=== PATIENT | female | born 1965 | race Two or more races ===

== ENCOUNTER 2022-11-12 21:20 | Emergency (ER) | payer OTHER, SELFPAY ==
--- NOTE | ~2022-11-12 | CT_ITS ---
EXAMINATION: CT ABDOMEN AND PELVIS WITH CONTRAST CLINICAL INFORMATION: Left lower quadrant pain COMPARISON: None available. TECHNIQUE: Multidetector volumetric images were obtained from the superior aspect of the liver through the pubic symphysis following administration 85 mL of Omnipaque 350 intravenous contrast. Sagittal and coronal reformatted images were obtained on the technologist's workstation. Oral contrast: No This CT examination was performed using dose optimization techniques as appropriate, variously including the following: *Automated exposure control *Adjustment of mA and/or kV according to patient size (this includes techniques or standardized protocols for targeted exams where dose is matched to indication/reason for exam; i.e. extremities or head) *Use of iterative reconstruction technique DLP: 948 mGy-cm FINDINGS: LUNG BASES: The visualized lung bases are unremarkable. LIVER, GALLBLADDER, AND BILIARY TREE: The liver is normal in size, shape, and attenuation. No focal hepatic lesion or biliary ductal dilatation is present. The gallbladder is unremarkable with no evidence of radiopaque gallstones, gallbladder wall thickening, or obvious pericholecystic inflammatory changes. PANCREAS: Unremarkable. SPLEEN: Unremarkable. ADRENAL GLANDS: Unremarkable. KIDNEYS AND URETERS: Bilateral nephrograms are symmetric. No hydronephrosis or obstructing calculus identified. BLADDER: Unremarkable. GASTROINTESTINAL TRACT: No evidence of bowel obstruction or wall thickening. There is moderate stool throughout the colon. No free fluid or free air is seen. ABDOMINAL WALL: No significant hernia is appreciated. LYMPH NODES: Normal. VASCULAR: Moderate atherosclerotic calcification. PELVIC VISCERA: Unremarkable. OSSEOUS STRUCTURES: Degenerative changes are noted in the spine. CT/CT abdomen pelvis w IV con IMPRESSION: No acute findings identified in the abdomen/pelvis.
[2022-11-12 21:37] VITALS: BP 136/80; PULSE 106; RESP 18; TEMP 36.9; O2SAT 95; BMI 37.3
[2022-11-12 22:13] LABS: Basophils Absolute Auto 0.1 X10*3/uL (0.0-0.2); Basophils Percent Auto 0.4 % (0-2); Eosinophils Absolute Auto 0.1 X10*3/uL (0.0-0.4); Eosinophils Percent Auto 0.6 % (0-4); Hemoglobin 15.8 g/dl (12.0-16.0); Imm Gran Abs Auto 0.12 X10*3/uL (0.00-0.03); Imm Gran Pct Auto 0.6 % (0.0-0.4); Lymphocytes Absolute Auto 3.2 X10*3/uL (1.2-4.9); Lymphocytes Percent Auto 15.6 % (20-40); MANUAL DIFF FLAG SCAN; Mean Corpuscular HGB Conc 32.9 g/dl (31.0-35.0); Mean Corpuscular Hemoglobin 29.4 pg (27.0-33.0); Mean Corpuscular Volume 89.4 fL (80.0-98.0); Mean Platelet Volume 9.2 fL (9.4-12.3); Monocytes Absolute Auto 1.6 X10*3/uL (0.1-1.2); Monocytes Percent Auto 7.8 % (2-11); Neutrophils Absolute Auto 15.3 x10*3/uL (2.0-8.3); Platelet Count 259 X10*3/uL (160-400); Red Blood Count 5.37 X10*6/uL (4.20-5.50); Red Cell Distribution Width 13.7 % (11.0-16.0); SCAN SMEAR FLAG 1; White Blood Count 20.4 X10*3/uL (4.8-10.8)
[2022-11-12 22:27] LABS: Anion Gap 15 (12-20); Blood Urea Nitrogen 29 mg/dL (9-16); Calcium 10.1 mg/dL (8.4-10.2); Carbon Dioxide 26 mmol/L (22-29); Chloride 100 mmol/L (96-108); Creatinine Clr Calc Pharmacy 59.5; Estimated Glomerular Filt Rate 43; Glucose Random 342 mg/dL (60-115); Potassium 5.3 mmol/L (3.3-5.1); Sodium 136 mmol/L (135-145)
[2022-11-12 22:30] LABS: SLIDE REVIEW VERIFIED
--- NOTE | 2022-11-12 23:12 | ED_ITS ---
HPI - General Adult General Chief complaint: Skin/Abscess/Foreign Body Stated complaint: Lower back pain/hip pain right side/abscessLftthig Time Seen by Provider: 11/12/22 23:12 Source: patient Mode of arrival: ambulatory Limitations: no limitations History of Present Illness HPI narrative: 57-year-old female presents to the emergency department for evaluation of which she thinks is an abscess located to the left posterior thigh, this has been going on for the past few days, worsening. She reports is been getting larger, more red and uncomfortable over the past few days. She states she has had abscesses there in the past. She is also complaining of chronic lower back pain worse on the right side w/ radiation to RLE above the knee, worsening over the past few days, back pain feels like her typical back pain however not improving. Scheduled to have an MRI done on the for further evaluation and treatment. Also compalinging of suprapubic/ LLQ abd pain X fewe days. Patient denies fevers, chills, chest pain, shortness of breath, numbness, tingling, saddle paresthesias, weakness, urinary/bowel incontinence/retention,nausea, vomiting Related Data Previous Rx's Medication Instructions Recorded doxycycline hyclate 100 mg capsule 100 mg PO BID 10 days #20 caps 11/12/22 lidocaine 5 % topical patch 1 patch topical DAILY PRN pain #15 11/12/22 ea morphine 15 mg immediate release 15 mg PO Q6H PRN pain 5 days #10 11/12/22 tablet tabs Allergies Allergy/AdvReac Type Severity Reaction Status Date / Time amoxicillin [AMOXICILLIN] Allergy Unknown ANAPHYLAXIS Unverified 11/12/22 21:42 duloxetine [From CYMBALTA] Allergy Unknown UNKNOWN Unverified 11/12/22 21:42 exenatide [From BYETTA] Allergy Unknown ANAPHYLAXIS Unverified 11/12/22 21:42 insulin detemir Allergy Unknown SORE THROAT Unverified 11/12/22 21:42 [From LEVEMIR U-100 INSULIN] insulin glargine Allergy Unknown YEAST Unverified 11/12/22 21:42 [From LANTUS U-100 INSULIN] INFECTION insulin glulisine Allergy Unknown UNKNOWN Unverified 11/12/22 21:42 [From APIDRA U-100 INSULIN] insulin isophane (NPH) Allergy Unknown YEAST Unverified 11/12/22 21:42 [From HUMULIN N NPH U-100 INFECTION INSULIN] insulin lispro Allergy Unknown HIVES Unverified 11/12/22 21:42 [From HUMALOG U-100 INSULIN] insulin regular Allergy Unknown MUSCLE PAIN Unverified 11/12/22 21:42 [From NOVOLIN R REGULAR U-100 INSULN] penicillin V Allergy Unknown Rash Verified 11/12/22 21:42 pioglitazone [From ACTOS] Allergy Unknown HIVES Unverified 11/12/22 21:42 Review of Systems Review of Systems: Constitutional : No Weight loss, No Fever, No Chills, ENT/Mouth : No Hearing loss, No Ear Pain, No Nasal Congestion, No Sinus Pain, No Hoarseness, No sore throat, No Rhinorrhea, No Swallowing Difficulty Cardiovascular : No Chest Pain, No SOB Respiratory : No Cough, No Dyspnea Gastrointestinal : No Nausea, No Vomiting, No Diarrhea, + abdominal Pain, No Hematochezia, No Melena Genitourinary : No Dysuria, No Urinary Frequency, No Hematuria, No Urinary Incontinence, Musculoskeletal : positive back pain Skin : No Skin Lesions, No rash, + abscess Neuro : No Weakness, No Numbness, No Paresthesias, no loss of bowel or bladder incontinence, no saddle anesthesia Yes all other systems are reviewed and are negative [facility] Past Medical History Attestation statement: The following information was validated with the patient. Source: old records reviewed and nursing notes reviewed Social History Social History Advance Directives: No Advance Directives Information Provided: Yes Physical Exam ED Vital Signs: Vital Signs - 24 hr 11/12/22 21:37 11/13/22 00:20 Temperature 98.4 F 98.8 F Pulse Rate 106 H 99 Respiratory Rate 18 18 Blood Pressure 136/80 106/68 Pulse Oximetry 95 95 Oxygen Delivery Method Room Air Room Air BMI result Body Mass Index 37.3 vss Appearance: Alert.? Oriented X3.? No acute distress.? Head: Normocephalic, atraumatic, no step-offs or deformities Eyes: Pupils equal, round and reactive to light.? CVS: Normal heart rate and rhythm.? Pulses normal.? Respiratory: No respiratory distress.? Breath sounds normal.? Abdomen: Soft and + suprapubic pain and LLQ pain .? Skin: Skin warm and dry.? Normal skin color.? Normal skin turgor.?+ indurated 2 cm X 2 cm area on left medial aspect of buttocks w/ overlying errythem and warmth. No fluctuance Extremities: No lower extremity edema.? No calf ttp. 5/5 strength to bilateral upper and lower extremities Back: No midline tenderness, no C-spine tenderness, full range of motion, no CVA tenderness bilaterally Neuro: Oriented X 3.? No motor deficit.? No sensory deficit. CN 2-12 intact . Ambulating with steady gait normal coordination. No saddle paresthesias. Course Reevaluation(s) Reevaluation #1: CBC with leukocytosis 20.4, no left shift. Chemistry with elevated potassium, 10 of Lokelma ordered. BUN 29 likely secondary to dehydration. Fluids ordered. Blood cultures lactic acid also ordered. CT scan abdomen pelvis pending. Time: 23:27 Reevaluation #2: Pending CT abd and pelvisw, UA, and reeval sign out to Dr. Jimenes. Time: 01:39 Medications Administered Discontinued Medications Generic Name Dose Route Start Last Admin Trade Name Freq PRN Reason Stop Dose Admin Sodium Chloride 1,000 mls @ 999 mls/hr 11/12/22 23:30 11/13/22 00:57 Ns IV 11/13/22 00:30 999 mls/hr .Q1H1M CAROLYN Administration Lidocaine 1 patch 11/12/22 23:28 11/13/22 00:55 Lidocaine 4 % Patch Adh..Patch TRANSDERMA 11/12/22 23:29 1 patch ONCE ONE Administration Protocol Morphine Sulfate 15 mg 11/12/22 23:28 11/13/22 00:53 Morphine Sulfate Immed Release 15 Mg Tablet PO 11/12/22 23:29 15 mg ONCE ONE Administration Sodium Zirconium Cyclosilicate 10 gm 11/12/22 23:12 11/13/22 00:55 Sodium Zirconium Cyclosilicate 10 Gm Powd.Pack PO 11/12/22 23:13 10 gm ONCE ONE Administration Medical Decision Making Medical Decision Making [facility] Narrative: [id number] 57-year-old female presents with concerns of abscess to left posterior thigh, and chronic back pain. Physical exam with indurated 2 cm X 2 cm area on left medial aspect of buttocks w/ overlying errythem and warmth. No fluctuance. There is tenderness to palpation to the suprapubic and left lower abdomen. Normoactive bowel sounds. Regular rate and rhythm. Lungs clear. No saddle paresthesias. Patient ambulatory with steady gait uses a walker for ambulation. Neuro nonfocal. This is likely developing abscess with some overlying cellulitis. I do not suspect epidural abscess, cauda equina, cord compression. Likely chronic back pain, versus lumbar radiculopathy scheduled to have an MRI the of this month. No red flag symptoms. Will rule out pyelonephritis, UTI, cystitis and diverticulitis. No signs of acute abdomen, appendicitis, cholecystitis. Plan at this time labs, imaging, urine Differential Diagnosis Differential Diagnoses: The differential diagnosis associated with the presentation includes This is likely developing abscess with some overlying cellulitis. I do not suspect epidural abscess, cauda equina, cord compression. Likely chronic back pain, versus lumbar radiculopathy . Will rule out pyelonephritis, UTI, cystitis and diverticulitis. No signs of acute abdomen, appendicitis, cholecystitis. Admission/Observation Consideration of admission/observation: Escalation of care including admission/observation considered Not indicated Lab Data MDM Lab Attestation statement: I reviewed the patient's lab results. 11/12/22 22:03 11/12/22 22:03 Labs: Lab Results 11/12/22 11/12/22 11/13/22 Range/Units 22:03 22:03 00:10 WBC 20.4 H (4.8-10.8) X10*3/uL RBC 5.37 (4.20-5.50) X10*6/uL Hgb 15.8 (12.0-16.0) g/dl Hct 48.0 H (37.0-47.0) % MCV 89.4 (80.0-98.0) fL MCH 29.4 (27.0-33.0) pg MCHC 32.9 (31.0-35.0) g/dl RDW 13.7 (11.0-16.0) % Plt Count 259 (160-400) X10*3/uL MPV 9.2 L (9.4-12.3) fL Immature Gran % (Auto) 0.6 H (0.0-0.4) % Neut % (Auto) 75.0 H (45-73) % Lymph % (Auto) 15.6 L (20-40) % Woods % (Auto) 7.8 (2-11) % Eos % (Auto) 0.6 (0-4) % Baso % (Auto) 0.4 (0-2) % Lymph # (Auto) 3.2 (1.2-4.9) X10*3/uL Woods # (Auto) 1.6 H (0.1-1.2) X10*3/uL Eos # (Auto) 0.1 (0.0-0.4) X10*3/uL Baso # (Auto) 0.1 (0.0-0.2) X10*3/uL Abs Immat Gran (auto) 0.12 H (0.00-0.03) X10*3/uL Absolute Neuts (auto) 15.3 H (2.0-8.3) x10*3/uL Absolute Nucleated RBC 0.000 (0.0-0.012) X10*3/uL Nucleated RBC % (auto) 0.0 (0.0-0.2) /100WBC Smear Tech's Comments VERIFIED Sodium 136 (135-145) mmol/L Potassium 5.3 H (3.3-5.1) mmol/L Chloride 100 (96-108) mmol/L Carbon Dioxide 26 (22-29) mmol/L Anion Gap 15 (12-20) BUN 29 H (9-16) mg/dL Creatinine 1.29 (0.5-1.4) mg/dL Estim Creat Clear Calc 59.5 Estimated GFR 43 Random Glucose 342 H (60-115) mg/dL Lactic Acid 1.5 (0.5-2.0) mmol/L Calcium 10.1 (8.4-10.2) mg/dL 11/13/22 Range/Units 01:11 WBC (4.8-10.8) X10*3/uL RBC (4.20-5.50) X10*6/uL Hgb (12.0-16.0) g/dl Hct (37.0-47.0) % MCV (80.0-98.0) fL MCH (27.0-33.0) pg MCHC (31.0-35.0) g/dl RDW (11.0-16.0) % Plt Count (160-400) X10*3/uL MPV (9.4-12.3) fL Immature Gran % (Auto) (0.0-0.4) % Neut % (Auto) (45-73) % Lymph % (Auto) (20-40) % Woods % (Auto) (2-11) % Eos % (Auto) (0-4) % Baso % (Auto) (0-2) % Lymph # (Auto) (1.2-4.9) X10*3/uL Woods # (Auto) (0.1-1.2) X10*3/uL Eos # (Auto) (0.0-0.4) X10*3/uL Baso # (Auto) (0.0-0.2) X10*3/uL Abs Immat Gran (auto) (0.00-0.03) X10*3/uL Absolute Neuts (auto) (2.0-8.3) x10*3/uL Absolute Nucleated RBC (0.0-0.012) X10*3/uL Nucleated RBC % (auto) (0.0-0.2) /100WBC Smear Tech's Comments Sodium (135-145) mmol/L Potassium 4.4 (3.3-5.1) mmol/L Chloride (96-108) mmol/L Carbon Dioxide (22-29) mmol/L Anion Gap (12-20) BUN (9-16) mg/dL Creatinine (0.5-1.4) mg/dL Estim Creat Clear Calc Estimated GFR Random Glucose (60-115) mg/dL Lactic Acid (0.5-2.0) mmol/L Calcium (8.4-10.2) mg/dL Independent Interpretation I performed an independent interpretation of an: CT Scan Radiology Impression Discussion of test interpretation with radiology: I have reviewed the radiologist's reading. Tests considered The following testing was considered but not selected: Red flag symptoms of back pain no indication for imaging at this time, atraumatic in nature. No need for x-ray, CT or MRI. Prescription Management I considered prescription management with: Pain Medication Chronic Conditions Patient?s care impacted by: Diabetes Core Measures AMI core measures followed: Yes Measure exclusions: not indicated Critical Care Time Critical Care Time Critical Care Time: No Discharge Plan Discharge Clinical Impression: Cellulitis, Abscess of skin or subcutaneous tissue, Lower back pain, Abdominal pain, Acute hyperkalemia Patient Disposition: Home, Self-Care Instructions: Cellulitis (ED), Abscess (ED), Abdominal Pain (ED), Back Pain (ED), Abscess Follow-up (ED), Warm Compress or Soak (ED) Additional Instructions: Take your medications as prescribed. If you were prescribed antibiotics today, it is important that you take your medication to their entirety, do not skip any doses, do not finish them early. Follow-up with your primary care provider this week. Return to the emergency department with new or worsening symptoms. Such as fevers, chills, chest pain, shortness of breath, nausea, vomiting, dizziness, headache, vision changes, lethargy In case of emergency call 911 Apply warm compresses to the affected area. Take your antibiotics as prescribed. A narcotic has been sent to your pharmacy please take this as prescribed. Do not take more than the prescribed dose. Narcotic medications can cause addiction. Please do not mix them with alcohol. Do not take them while driving or operating machinery. Do not take them with any other narcotics. Do not share them with friends or family. They can cause constipation. Take them only for severe pain. Prescriptions: New doxycycline hyclate 100 mg capsule 100 mg PO BID 10 Days Qty: 20 0RF lidocaine 5 % adhesive patch,medicated 1 patch topical DAILY PRN (Reason: pain) Qty: 15 0RF Rx Instructions: leave on most painful area for up to 12 hrs morphine 15 mg tablet 15 mg PO Q6H PRN (Reason: pain) 5 Days Qty: 10 0RF Rx Instructions: Partial Fill upon patient request. Referrals: Zoraida Li MD [Primary Care Provider] - 2 days Stand Alone Forms: Work/School Release
[2022-11-13 00:20] VITALS: BP 106/68; PULSE 99; RESP 18; TEMP 37.1; O2SAT 95
[2022-11-13 00:45] LABS: Lactic Acid 1.5 mmol/L (0.5-2.0)
[2022-11-13] MEDS: Morphine Sulfate Immed Release 15 MG TABLET PO (00:53)
[2022-11-13] MEDS: Sodium Zirconium Cyclosilicate 10 GM POWD.PACK PO (00:55)
[2022-11-13] MEDS: Lidocaine 4 % Patch ADH..PATCH 1 PATCH TRANSDERMA (00:55)
[2022-11-13] MEDS: 0.9 % Sodium Chloride 1,000 ML 999 ML IV (00:57)
[2022-11-13 01:22] LABS: Potassium 4.4 mmol/L (3.3-5.1)
[2022-11-13 02:09] LABS: Anion Gap 16 (12-20)
[2022-11-13 02:20] LABS: Blood Urea Nitrogen 26 mg/dL (9-16); Calcium 9.4 mg/dL (8.4-10.2); Carbon Dioxide 19 mmol/L (22-29); Chloride 103 mmol/L (96-108); Creatinine Clr Calc Pharmacy 80.8; Estimated Glomerular Filt Rate > 60; Glucose Random 286 mg/dL (60-115); Sodium 134 mmol/L (135-145)
[2022-11-13 03:03] VITALS: BP 111/60; PULSE 96; RESP 16; TEMP 37.1; O2SAT 92
[2022-11-13] MEDS: iohexoL 350 MG/ML 100 ML INFUS..BTL 85 ML IV (03:14)
[2022-11-13] MEDS: levoFLOXacin/D5W 500 MG/100 ML PIGGYBACK 100 MG IV (03:16)
[2022-11-13 04:12] LABS: Appearance Urine Cloudy; Color Urine Yellow; Glucose Urine UA >=1000 mg/dL (Negative); Leukocyte Esterase Urine Moderate (2+) (Negative); Nitrite Urine Negative (Negative); Specific Gravity - Urine >= 1.030 (1.005-1.025); UMIC TRIGGER UACC YES; Urine Blood Negative (Negative); Urine Ketones Negative (Negative); Urine Protein 30 (1+) mg/dL (Neg-Trace)
[2022-11-13 04:24] LABS: Bacteria Urine 4+ (None Seen); Hyaline Casts Urine 0-2 /LPF (0-2); UACC Culture Trigger YES; WBC Urine >50 /HPF (0-5)
== END 2022-11-13 04:59 | disposition home or self-care (01) ==
PROVIDERS: Physician Assistant; Emergency Provider Emergency Medicine Emergency Medical Services; PCP Family Medicine
DX: L03.116 Cellulitis of left lower limb (principal); L02.416 Cutaneous abscess of left lower limb; R10.32 Left lower quadrant pain; M54.50 Low back pain, unspecified; E87.5 Hyperkalemia; E11.9 Type 2 diabetes mellitus without complications
CPT/HCPCS: 36415; 74177; 80048; 81001; 83605; 84132; 85025; 87040; 87086; 87147; 96361; 96374; 99284; J1956; Q9967

== ENCOUNTER 2023-01-26 13:49 | Outpatient (AMB) | payer OTHER, SELFPAY ==
--- NOTE | 2023-01-26 13:50 | A.OFFVIS_ITS ---
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 Required: No Accompanied by: Self / Same As Patient Allergies amoxicillin [AMOXICILLIN] Allergy (Unknown, Verified 01/26/23 14:30) ANAPHYLAXIS duloxetine [From CYMBALTA] Allergy (Unknown, Verified 01/26/23 14:30) UNKNOWN exenatide [From BYETTA] Allergy (Unknown, Verified 01/26/23 14:30) ANAPHYLAXIS insulin detemir [From LEVEMIR U-100 INSULIN] Allergy (Unknown, Verified 01/26/23 14:30) SORE THROAT insulin glargine [From LANTUS U-100 INSULIN] Allergy (Unknown, Verified 01/26/23 14:30) YEAST INFECTION insulin glulisine [From APIDRA U-100 INSULIN] Allergy (Unknown, Verified 01/26/23 14:30) UNKNOWN insulin isophane (NPH) [From HUMULIN N NPH U-100 INSULIN] Allergy (Unknown, Verified 01/26/23 14:30) YEAST INFECTION insulin lispro [From HUMALOG U-100 INSULIN] Allergy (Unknown, Verified 01/26/23 14:30) HIVES insulin regular [From NOVOLIN R REGULAR U-100 INSULN] Allergy (Unknown, Verified 01/26/23 14:30) MUSCLE PAIN lisinopril Allergy (Unknown, Verified 01/26/23 14:30) Cough penicillin V Allergy (Unknown, Verified 01/26/23 14:30) Rash pioglitazone [From ACTOS] Allergy (Unknown, Verified 01/26/23 14:30) HIVES HPI 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 Patient was followed in the past by [facility] for low back pain and received multiple back injections with good results. She attributes her most recent radicular symptoms due to a mechanical fall in October. She accidentally hit a chair with her walker and fell onto her right side. Reports pain in her lower back pain with radiation into her right buttock, lateral hip and down to the lower leg posteriorly and laterally with cramping in her right calf, numbness and burning pain in both feet. Denies any bladder or bowel dysfunction or saddle anesthesia. Patient reports bilateral lower extremity weakness, uses cane with ambulation. Recent lumbar spine MRI is noted below. Patient is not candidate for therapeutic spine injections due to elevated A1C, nor does she want to be evaluated by Neurosurgery as she is not interested in back surgery. Reports history of overdose on oxycodone-acetaminophen due to forgetfulness and taking double dose, which required hospitalization per patient in 2016. She sees mental therapist for anxiety and depression. Reports she quit smoking on 01/14/23 and takes Nicotine lozenges for craving. Reports increased snacking and eating since quitting. 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 Receives daily [employer] services. Current blood sugar per Dexicomp reads 184. Patient reports most recent A1C was over 10. She follows Dr. Medina Muse at [facility]. Reports right great toenail removed in 2019. Patient requests referral to Podiatry provider as she has not seen one in several years. Location Back pain radiates down right leg posteriorly Duration Chronic pain for many years, progressively worsening Characteristics of symptom or complaint Aching, burning, shooting, stabbing, numbness Aggravating or associated factors Walking, sitting, climbing and descending stairs, movements, weather change Relieving factors Tylenol, Percocet, morphine, gabapentin Treatment PT- increased pain, injections- [facility]-good relief PFSH Medical History (Updated 01/26/23 @ 22:13 by GABRIELA Goel) Tennis elbow AMRIAM (obstructive sleep apnea) Vitamin D deficiency Familial hirsutism Hyperlipidemia Microalbuminuria Hypertension Depression Anxiety Hypercholesterolemia Type 2 diabetes mellitus with peripheral neuropathy Lumbar radiculopathy Right leg pain Surgical History (Updated 01/26/23 @ 14:24 by Leighann Pierre) Hx of tubal ligation Social History (Updated 01/26/23 @ 14:08 by Leighann Pierre) Alcohol intake: never Patient Tobacco Use Status: Current everyday Tobacco user Tobacco use type: Cigarette Review of Systems Const All systems reviewed & are unremarkable except as noted in HPI and below Physical Exam Vital Signs: Last Vital Signs Pulse 91 01/26/23 14:01 BP 157/73 H 01/26/23 14:01 Pulse Ox 95 01/26/23 14:01 Oxygen Delivery Method Room Air 01/26/23 14:01 BMI result Body Mass Index 37.7 General: Appears afebrile. Alert and oriented. Mood and affect appropriate. Follows and participates in conversation appropriately. Respiratory effort is unlabored. No cough. Able to transition from sit to stand unassisted. Uses cane with ambulation. Ambulates with bilaterally normal heel strike and toe off. Back/Spine/Pelvis Other: Limited back exam due to significant exacerbation of back symptoms with movements. Lumbar extension and flexion reproduces pain. Demonstrates 5/5 left and 4/5 right strength of quadriceps bilaterally as well as 4/5 flexion/dorsiflexion of bilateral feet against resistance. 2+ pedal pulses bilaterally. Seated straight leg rise with dorsiflexion positive on the right. Diminished patellar and achilles reflexes bilaterally. Facet loading test positive bilaterally. Stinchfield and limited Stanley's test reproduces low back pain and lateral right hip pain. No groin pain with I/E hip rotations. Valsalva maneuver negative. Cervical Spine: loss of normal cervical lordosis, cervical muscular tenderness and No Cervical spine tenderness Thoracic/Lumbar Spine: thoracic and lumbar spine normal to inspection, No Thoracic/lumbar spine scar(s), Lasegue's sign positive on the right and localized, pain with thoraco-lumbar ROM, paraspinal muscle tenderness, thoraco- lumbar ROM limited, No thoracic spinal tenderness and lumbar spinal tenderness at L4 and at L5 Pelvis: buttock tenderness on the right and sciatic notch tenderness on the right Sacroiliac joints: bilaterally tender to palpation Extrem Other: There is decreased sensation over the soles of the feet and the toes. No breaks in the skin. No soft tissue swelling, no redness or warmth. Poor foot care. Right great toenail removed in 2019. +2 pedal pulses bilaterally. Reports numbness, tingling and burning in both feet. General: Yes capillary refill normal, Yes no clubbing, cyanosis or edema and Yes no calf tenderness Psych Appearance: grossly normal Mental Status: mental status grossly normal Speech and movement: Clear speech present and Slowed movement present (Neuro) Affect: normal affect and Sad affect present Attitude: cooperative Thought process: Circumstantial thought process present Thought content: Normal thought content present, suicidality (none), no hallucinations and Depressive thoughts present Insight: Good insight present (Psych) Judgement: Good judgement present (Psych) Results Reviewed Results Reviewed: Assessment & Plan Assessment & Plan (1) Chronic painful diabetic neuropathy: Code(s): E11.40 - Type 2 diabetes mellitus with diabetic neuropathy, unspecified (2) Lumbar degenerative disc disease: Code(s): M51.36 - Other intervertebral disc degeneration, lumbar region (3) Lumbar radiculopathy: Code(s): M54.16 - Radiculopathy, lumbar region (4) Lumbar spondylosis: Code(s): M47.816 - Spondylosis without myelopathy or radiculopathy, lumbar region Plan 1. Medical release requests for most recent A1C sent to Endocrinology. Discuss risks and benefits of different treatment options including epidural steroid injections, topical 8% capsaicin application and PNS vs SCS trials. Patient reports A1C has been elevated, due to increased snacking after recent quitting smoking. Unfortunately she is not candidate for MEMO injections or neuromodulation treatments due to poorly controlled DM. Patient declined Neurosurgery evaluation as she is not interested in back surgery option. 2. Will try to arrange topical 8% capsaicin application for bilateral foot pain as the next step once we have confirmed availability. 3. Podiatry Referral sent today per patient's request. All questions and concerns have been answered and the patient agreed with the plan. Follow up as needed. Orders: Referrals 2 Podiatry Referral E11.40 - Type 2 diabetes mellitus with diabetic neuropathy, unspecified Coding Level of Care Code New Pt Level 4 (98443) Diagnoses Chronic painful diabetic neuropathy E11.40 Lumbar degenerative disc disease M51.36 Lumbar radiculopathy M54.16 Lumbar spondylosis M47.816
[2023-01-26 14:01] VITALS: BP 157/73; PULSE 91; O2SAT 95; BMI 37.7
== END 2023-01-26 14:37 | disposition home or self-care (01) ==
PROVIDERS: PCP Family Medicine; Visit Provider Nurse Practitioner Family
DX: E11.40 Type 2 diabetes mellitus with diabetic neuropathy, unspecified (principal); M51.36 Other intervertebral disc degeneration, lumbar region; M54.16 Radiculopathy, lumbar region; M47.816 Spondylosis without myelopathy or radiculopathy, lumbar region
CPT/HCPCS: 99204

== ENCOUNTER → 2023-01-26 13:49 | Outpatient (BNVA) | payer OTHER, SELFPAY | PROVIDERS: PCP Family Medicine; Visit Provider Nurse Practitioner Family ==

== ENCOUNTER 2023-01-31 10:45 | Outpatient (REF) | payer OTHER, SELFPAY ==
--- NOTE | ~2023-01-31 | MM_ITS ---
EXAMINATION: MM SCREENING DIGITAL BREAST TOMOSYNTHESIS, BILATERAL CLINICAL INFORMATION: Screening. Asymptomatic. COMPARISON: Mammography: This study is compared with prior exams dating back to 2018. There are no interval examinations between 2019 and the present. TECHNIQUE: Digital breast tomosynthesis is performed in both the craniocaudal and mediolateral oblique views along with computer-aided detection (CAD). Synthesized 2D images are generated from the tomosynthesis. FINDINGS: There are scattered areas of fibroglandular density (ACR BI-RADS breast composition Category b). There are no significant masses, abnormal calcifications, or other abnormalities. There is a benign, peripherally calcified oil cyst in the posterior nipple line in the deep third of the right breast. MM/MM tomosynthesis screening BI IMPRESSION: No mammographic evidence of malignancy. ASSESSMENT: BI-RADS BI-RADS 2 - Benign Findings RECOMMENDATION: Routine annual mammography screening. 1 year F/U This examination should not preclude the clinical evaluation of a suspicious palpable abnormality. This patient's information was entered into a reminder system with a target due date for their next mammogram.
== END 2023-01-31 10:46 | disposition home or self-care (01) ==
LOC: HO.MAMMO 10:45
PROVIDERS: PCP Family Medicine; Visit Provider Family Medicine
DX: Z12.31 Encounter for screening mammogram for malignant neoplasm of breast (principal)
CPT/HCPCS: 77063; 77067

== ENCOUNTER → 2023-01-31 10:45 | Outpatient (BNV) | payer OTHER, SELFPAY | PROVIDERS: PCP Family Medicine; Visit Provider Radiology Diagnostic Radiology | DX: Z12.31 Encounter for screening mammogram for malignant neoplasm of breast (principal) | CPT/HCPCS: 77063; 77067 ==

== ENCOUNTER 2023-02-12 14:10 | Outpatient (AMB) | payer OTHER, SELFPAY ==
--- NOTE | 2023-02-12 14:12 | A.OFFVIS_ITS ---
Intake Vital Signs 02/12/23 14:13 02/12/23 14:52 02/12/23 15:14 Height 5 ft 6 in Weight 233 lb 8 oz BMI 37.7 BP 142/74 H 140/70 H 148/71 H Blood Pressure Location Lt brachial Lt brachial Lt brachial Position Sitting Sitting Sitting Pulse 108 H 101 H 99 Pulse Source Pulse Oximeter Pulse Oximeter Pulse Oximeter Pulse Oximetry (%) 96 96 96 Oxygen Delivery Method Room Air Room Air Room Air Comment 15 mins after qutenza application 30 mins after qutenza application Intake Visit Reasons: Qutenza - DN Intake Note: Mabeline comes in today for Qutenza application to bilateral feet, Pain today 09/10. Lot #[id number] Exp: [id number] Beer Cooler Required: No Accompanied by: Self / Same As Patient Allergies amoxicillin [AMOXICILLIN] Allergy (Unknown, Verified 02/12/23 14:15) ANAPHYLAXIS duloxetine [From CYMBALTA] Allergy (Unknown, Verified 02/12/23 14:15) UNKNOWN exenatide [From BYETTA] Allergy (Unknown, Verified 02/12/23 14:15) ANAPHYLAXIS insulin detemir [From LEVEMIR U-100 INSULIN] Allergy (Unknown, Verified 02/12/23 14:15) SORE THROAT insulin glargine [From LANTUS U-100 INSULIN] Allergy (Unknown, Verified 02/12/23 14:15) YEAST INFECTION insulin glulisine [From APIDRA U-100 INSULIN] Allergy (Unknown, Verified 02/12/23 14:15) UNKNOWN insulin isophane (NPH) [From HUMULIN N NPH U-100 INSULIN] Allergy (Unknown, Verified 02/12/23 14:15) YEAST INFECTION insulin lispro [From HUMALOG U-100 INSULIN] Allergy (Unknown, Verified 02/12/23 14:15) HIVES insulin regular [From NOVOLIN R REGULAR U-100 INSULN] Allergy (Unknown, Verified 02/12/23 14:15) MUSCLE PAIN lisinopril Allergy (Unknown, Verified 02/12/23 14:15) Cough penicillin V Allergy (Unknown, Verified 02/12/23 14:15) Rash pioglitazone [From ACTOS] Allergy (Unknown, Verified 02/12/23 14:15) HIVES HPI HPI Comments History of Present Illness Details Patient presents for application of capsaicin 8% topical patch for diabetic neuropathy in bilateral feet. Denies any recent cough, cold, infection, fever or other significant changes in medical history since last office visit. PRIOR: Patient is a 57 year old female with prior history of chronic low back pain, pinched nerve L5, lumbar DDD, MARIAM, uncontrolled DM, PAD, peripheral neuropathy, anxiety, depression and former smoker, presents today for evaluation of low back pain with right sided radiculopathy. Patient was followed in the past by [facility] for low back pain and received multiple back injections with good results. She attributes her most recent radicular symptoms due to a mechanical fall in October. She accidentally hit a chair with her walker and fell onto her right side. Reports pain in her lower back pain with radiation into her right buttock, lateral hip and down to the lower leg posteriorly and laterally with cramping in her right calf, numbness and burning pain in both feet. Denies any bladder or bowel dysfunction or saddle anesthesia. Patient reports bilateral lower extremity weakness, uses cane with ambulation. Recent lumbar spine MRI is noted below. Patient is not candidate for therapeutic spine injections due to elevated A1C, nor does she want to be evaluated by Neurosurgery as she is not interested in back surgery. Reports history of overdose on oxycodone-acetaminophen due to forgetfulness and taking double dose, which required hospitalization per patient in 2016. She sees mental therapist for anxiety and depression. Reports she quit smoking on 01/14/23 and takes Nicotine lozenges for craving. Reports increased snacking and eating since quitting. 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 Current blood sugar per Dexicomp reads 184. Patient reports most recent A1C was over 10. She follows Dr. Medina Muse at [facility]. Reports right great toenail removed in 2019. Patient requests referral to Podiatry provider as she has not seen one in several years. Location Back pain radiates down right leg posteriorly Duration Chronic pain for many years, progressively worsening Characteristics of symptom or complaint Aching, burning, shooting, stabbing, numbness Aggravating or associated factors Walking, sitting, climbing and descending stairs, movements, weather change Relieving factors Tylenol, Percocet, morphine, gabapentin Treatment PT- increased pain, injections- [facility] pain management-good relief PFSH Medical History (Updated 01/26/23 @ 22:13 by GABRIELA Goel) Tennis elbow MARIAM (obstructive sleep apnea) Vitamin D deficiency Familial hirsutism Hyperlipidemia Microalbuminuria Hypertension Depression Anxiety Hypercholesterolemia Type 2 diabetes mellitus with peripheral neuropathy Lumbar radiculopathy Right leg pain Surgical History (Updated 01/26/23 @ 14:24 by Leighann Pierre) Hx of tubal ligation Social History (Updated 01/26/23 @ 14:08 by Leighann Pierre) Alcohol intake: never Patient Tobacco Use Status: Current everyday Tobacco user Tobacco use type: Cigarette Review of Systems Const All systems reviewed & are unremarkable except as noted in HPI and below Physical Exam Vital Signs: Last Vital Signs Pulse 99 02/12/23 15:14 BP 148/71 H 02/12/23 15:14 Pulse Ox 96 02/12/23 15:14 Oxygen Delivery Method Room Air 02/12/23 15:14 BMI result Body Mass Index 37.7 General: Appears afebrile. Alert and oriented. Mood and affect appropriate. Follows and participates in conversation appropriately. Respiratory effort is unlabored. No cough. Able to transition from sit to stand unassisted. Uses cane with ambulation. Ambulates with bilaterally normal heel strike and toe off. Back/Spine/Pelvis Sacroiliac joints: bilaterally tender to palpation Extrem Other: There is decreased sensation over the soles of the feet and the toes. No breaks in the skin. No soft tissue swelling, no redness or warmth. Poor foot care. +2 pedal pulses bilaterally. Reports numbness, tingling and burning in both feet. General: Yes capillary refill normal, Yes no clubbing, cyanosis or edema and Yes no calf tenderness Office Procedures Topical Capsaicin Date 1:: 02/12/23 Laterality: Bilateral Location of left foot pain: Plantar and Dorsal Location of right foot pain: Plantar and Dorsal Quality of pain: Aching, Burning, Gnawing, Numb-like and Tiring Details:: Two patches, 560 cm2 were utilized per each foot. EMLA Cream (lidocaine 2.5% and prilocaine 2.5%) was applied by a patient in the waiting area and in the exam room as she had trouble opening EMLA cream due to safety lock. The patient tolerated the procedure well. Her vitals signs remained stable throughout the procedure. Patient was able to complete the stipulated 30 minutes of the therapeutic application without any discomfort. Office Meds capsaicin-skin cleanser 8 % topical kit Performing Provider: GABRIELA Goel Performing Location: [facility] Administered by: GABRIELA Goel on 02/12/23 14:30 Dose Route Admin Location Dispensed Lot Number Expiration Date [facility] Balance Wheel Motion Inspector 4 ea topical 4 ea [id number] 05/04/25 01584-686-20 [employer] Assessment & Plan Assessment & Plan (1) Chronic painful diabetic neuropathy: Code(s): E11.40 - Type 2 diabetes mellitus with diabetic neuropathy, unspecified Plan Patient is status post 1st round of application of topical capsaicin 8% for chronic diabetic peripheral neuropathy in bilateral feet. Patient tolerated the procedure without significant discomfort with application of EMLA cream prior to the procedure. She was discharged home in stable condition with discharge instructions. All questions and concerns were answered and the patient agreed with the plan. Greater than 45 minutes were spent in therapeutic application and in coordination of the care. Orders: Orders AMB Capsaicin Patch - Practice Supplied Today E11.40 - Type 2 diabetes mellitus with diabetic neuropathy, unspecified Coding Level of Care Code Est Pt Level 5 (89169) Diagnoses Chronic painful diabetic neuropathy E11.40
[2023-02-12 14:13] VITALS: BP 142/74; PULSE 108; O2SAT 96; BMI 37.7
[2023-02-12 14:52] VITALS: BP 140/70; PULSE 101; O2SAT 96
[2023-02-12 15:14] VITALS: BP 148/71; PULSE 99; O2SAT 96
== END 2023-02-12 15:15 | disposition home or self-care (01) ==
PROVIDERS: PCP Family Medicine; Visit Provider Nurse Practitioner Family
DX: E11.40 Type 2 diabetes mellitus with diabetic neuropathy, unspecified (principal)
CPT/HCPCS: 17999; 99215

== ENCOUNTER → 2023-02-12 14:10 | Outpatient (BNVA) | payer OTHER, SELFPAY | PROVIDERS: PCP Family Medicine; Visit Provider Nurse Practitioner Family | DX: E11.40 Type 2 diabetes mellitus with diabetic neuropathy, unspecified (principal) | CPT/HCPCS: 17999; 99212; J7336 ==

== ENCOUNTER 2023-05-15 13:46 | Outpatient (AMB) | payer OTHER, SELFPAY ==
--- NOTE | 2023-05-15 13:55 | A.OFFVIS_ITS ---
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 Required: No Accompanied by: Self / Same As Patient Allergies amoxicillin [AMOXICILLIN] Allergy (Unknown, Verified 05/15/23 13:59) ANAPHYLAXIS duloxetine [From CYMBALTA] Allergy (Unknown, Verified 05/15/23 13:59) UNKNOWN exenatide [From BYETTA] Allergy (Unknown, Verified 05/15/23 13:59) ANAPHYLAXIS insulin detemir [From LEVEMIR U-100 INSULIN] Allergy (Unknown, Verified 05/15/23 13:59) SORE THROAT insulin glargine [From LANTUS U-100 INSULIN] Allergy (Unknown, Verified 05/15/23 13:59) YEAST INFECTION insulin glulisine [From APIDRA U-100 INSULIN] Allergy (Unknown, Verified 05/15/23 13:59) UNKNOWN insulin isophane (NPH) [From HUMULIN N NPH U-100 INSULIN] Allergy (Unknown, Verified 05/15/23 13:59) YEAST INFECTION insulin lispro [From HUMALOG U-100 INSULIN] Allergy (Unknown, Verified 05/15/23 13:59) HIVES insulin regular [From NOVOLIN R REGULAR U-100 INSULN] Allergy (Unknown, Verified 05/15/23 13:59) MUSCLE PAIN lisinopril Allergy (Unknown, Verified 05/15/23 13:59) Cough penicillin V Allergy (Unknown, Verified 05/15/23 13:59) Rash pioglitazone [From ACTOS] Allergy (Unknown, Verified 05/15/23 13:59) HIVES HPI HPI Comments 2 History of Present Illness0 Details Patient presents for application of capsaicin 8% topical patch for diabetic neuropathy in bilateral feet. Patient continues to endorse low back pain with bilateral leg pain. She reports her blood sugars remain high and states she has upcoming follow up with her PCP to recheck A1C. Patient is interested to undergo bilateral diagnostic lumbar medial branch blocks for potential peripheral nerve stimulation trial or radiofrequency ablation of medial branch nerves. Denies any recent cough, cold, infection, fever or other significant changes in medical history since last office visit. PRIOR: Patient is a 57 year old female with prior history of chronic low back pain, pinched nerve L5, lumbar DDD, MARIAM, uncontrolled DM, PAD, peripheral neuropathy, anxiety, depression and former smoker, presents today for evaluation of low back pain with right sided radiculopathy. Patient was followed in the past by [facility] for low back pain and received multiple back injections with good results. She attributes her most recent radicular symptoms due to a mechanical fall in October. She accidentally hit a chair with her walker and fell onto her right side. Reports pain in her lower back pain with radiation into her right buttock, lateral hip and down to the lower leg posteriorly and laterally with cramping in her right calf, numbness and burning pain in both feet. Denies any bladder or bowel dysfunction or saddle anesthesia. Patient reports bilateral lower extremity weakness, uses cane with ambulation. Recent lumbar spine MRI is noted below. Patient is not candidate for therapeutic spine injections due to elevated A1C, nor does she want to be evaluated by Neurosurgery as she is not interested in back surgery. Reports history of overdose on oxycodone-acetaminophen due to forgetfulness and taking double dose, which required hospitalization per patient in 2016. She sees mental therapist for anxiety and depression. Reports she quit smoking on 01/14/23 and takes Nicotine lozenges for craving. Reports increased snacking and eating since quitting. 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 Current blood sugar per Dexicomp reads 184. Patient reports most recent A1C was over 10. [address] follows Dr. Medina Muse at [facility]. Reports right great toenail removed in 2019. Patient requests referral to Podiatry provider as she has not seen one in several years. Location Back pain radiates down right leg posteriorly Duration Chronic pain for many years, progressively worsening Characteristics of symptom or complaint Aching, burning, shooting, stabbing, numbness Aggravating or associated factors Walking, sitting, climbing and descending stairs, movements, weather change Relieving factors Tylenol, Percocet, morphine, gabapentin Treatment PT- increased pain, injections- [facility] pain management-good relief PFSH Medical History Tennis elbow MARIAM (obstructive sleep apnea) Vitamin D deficiency Familial hirsutism Hyperlipidemia Microalbuminuria Hypertension Depression Anxiety Hypercholesterolemia Type 2 diabetes mellitus with peripheral neuropathy Lumbar radiculopathy Right leg pain Surgical History Hx of tubal ligation Social History Alcohol intake: never Patient Tobacco Use Status: Current everyday Tobacco user Tobacco use type: Cigarette Review of Systems Const All systems reviewed & are unremarkable except as noted in HPI and below Physical Exam Vital Signs: Last Vital Signs Pulse 101 H 05/15/23 14:29 BP 122/66 05/15/23 14:29 Pulse Ox 97 05/15/23 14:29 Oxygen Delivery Method Room Air 05/15/23 14:29 BMI result Body Mass Index 37.8 General: Appears afebrile. Alert and oriented. Mood and affect appropriate. Follows and participates in conversation appropriately. Respiratory effort is unlabored. No cough. Able to transition from sit to stand unassisted. Uses cane with ambulation. Ambulates with bilaterally normal heel strike and toe off. Back/Spine/Pelvis Other: Limited lumbar spine ROM due to pain. Lumbar extension reproduces moderate pain, whereas flexion reproduces mild symptoms. Painful facet loading bilaterally. Cervical Spine: cervical ROM normal, cervical muscular tenderness and No Cervical spine tenderness Thoracic/Lumbar Spine: thoracic and lumbar spine normal to inspection, Lasegue's sign negative, straight leg raise negative bilaterally, pain with thoraco-lumbar ROM, paraspinal muscle tenderness, thoraco-lumbar ROM limited, No thoracic spinal tenderness and lumbar spinal tenderness (L3-S1) Pelvis: no buttock tenderness Sacroiliac joints: bilaterally (+Stanley's, +Pelvic compression ) tender to palpation Extrem Other: There is decreased sensation over the soles of the feet and the toes. No breaks in the skin. No soft tissue swelling, no redness or warmth. +2 pedal pulses bilaterally. Reports numbness, tingling and burning in both feet. Normal capillary refill. No edema, cyanosis, clubbing and no calf tenderness. Office Procedures Topical Capsaicin Date 1:: 02/12/23 Date 2:: 05/15/23 Main area of pain on the body: Bilateral foot and toes Laterality: Bilateral Location of left foot pain: Plantar and Dorsal Location of right foot pain: Plantar and Dorsal Quality of pain: Aching, Stabbing, Nagging, Burning, Gnawing, Numb-like and Tiring Details:: Two patches, 560 cm2 were utilized per each foot. EMLA Cream (lidocaine 2.5% and prilocaine 2.5%) was applied at home by patient prior to application of the patches. The patient tolerated the procedure well. Patient?s vitals signs remained stable throughout the procedure. Patient was able to complete the stipulated 30 minutes of the therapeutic application without any discomfort. Office Meds capsaicin-skin cleanser 8 % topical kit Performing Provider: GABRIELA Goel Performing Location: [facility] Administered by: GABRIELA Goel on 05/15/23 14:13 2 Dose Route Admin Location Dispensed Lot Number Expiration Date [facility] Service Tester 4 ea topical [facility] 4 ea [id number] 10/02/25 [id number] [place] Results Reviewed Results Reviewed: Assessment & Plan Assessment & Plan (1) Lumbar degenerative disc disease: Code(s): M51.36 - Other intervertebral disc degeneration, lumbar region (2) Chronic painful diabetic neuropathy: Code(s): E11.40 - Type 2 diabetes mellitus with diabetic neuropathy, unspecified (3) Lumbar spondylosis: Code(s): M47.816 - Spondylosis without myelopathy or radiculopathy, lumbar region (4) Lumbar radiculopathy: Code(s): M54.16 - Radiculopathy, lumbar region Plan Patient is status post 2nd round of application of topical capsaicin 8% for chronic diabetic peripheral neuropathy in bilateral feet. Patient tolerated the procedure without significant discomfort with application of EMLA cream prior to the procedure. She was discharged home in stable condition with discharge instructions. For axial low back pain, will schedule Bilateral Diagnostic L3-L4-DR L5 MBB with local and fluoroscopy. If she has significant relief from the diagnostic blocks for her axial low back pain, will consider either Sprint PNS or RFA depending on her preference. Expectations, risks and benefits were reviewed. Patient is aware she will be contacted to schedule this procedure. All questions were answered and the patient is in agreement of plan. Follow-up after injections and sooner as needed. Greater than 40 minutes were spent in therapeutic application and in coordination of the care. Orders: Orders 2 AMB Capsaicin Patch - Practice Supplied Today E11.40 - Type 2 diabetes mellitus with diabetic neuropathy, unspecified, M51.36 - Other intervertebral disc degeneration, lumbar region Coding Level of Care Code Est Pt Level 4 (73852) Diagnoses Lumbar degenerative disc disease M51.36 Chronic painful diabetic neuropathy E11.40 Lumbar spondylosis M47.816 Lumbar radiculopathy M54.16
[2023-05-15 14:00] VITALS: BP 136/72; PULSE 99; O2SAT 97; BMI 37.8
[2023-05-15 14:29] VITALS: BP 122/66; PULSE 101; O2SAT 97
[2023-05-15 14:48] VITALS: BP 119/65; PULSE 97
== END 2023-05-15 14:50 | disposition home or self-care (01) ==
PROVIDERS: PCP Family Medicine; Visit Provider Nurse Practitioner Family
DX: E11.40 Type 2 diabetes mellitus with diabetic neuropathy, unspecified (principal); M51.36 Other intervertebral disc degeneration, lumbar region; M47.816 Spondylosis without myelopathy or radiculopathy, lumbar region; M54.16 Radiculopathy, lumbar region
CPT/HCPCS: 99214

== ENCOUNTER → 2023-05-15 13:46 | Outpatient (BNVA) | payer OTHER, SELFPAY | PROVIDERS: PCP Family Medicine; Visit Provider Nurse Practitioner Family | DX: E11.40 Type 2 diabetes mellitus with diabetic neuropathy, unspecified (principal); M51.36 Other intervertebral disc degeneration, lumbar region; M47.816 Spondylosis without myelopathy or radiculopathy, lumbar region; M54.16 Radiculopathy, lumbar region | CPT/HCPCS: 99212; J7336 ==

== ENCOUNTER 2023-06-30 06:18 | Outpatient (REF) | payer OTHER, SELFPAY ==
--- NOTE | ~2023-06-30 | FL_ITS ---
EXAMINATION: XR FLUOROSCOPY WITH IMAGES CLINICAL INFORMATION: Lumbar spondylosis without myelopathy or radiculopathy. COMPARISON: Lumbar spine radiographs dated 09/02/2019. TECHNIQUE: Fluoroscopy Supervised By: Dr. Fletcher. Fluoroscopy Time: 0.8. Cumulative Dose: 42.6 mGy. DAP: 0.667 Gycm2. Images: 6. FINDINGS: The submitted images show injection needles and injected contrast adjacent to the right L3-L4, L4-L5 and L5-S1 neural foramina and the left L4-L5 and L5-S1 neural foramina. FL/FL guidance in treatment room IMPRESSION: Intraoperative fluoroscopic guidance is provided during lumbar pain injections. Please see the patient's Operative Report for full procedural details.
== END 2023-06-30 06:19 | disposition home or self-care (01) ==
LOC: CF 06:18
PROVIDERS: Visit Provider Anesthesiology
DX: M47.816 Spondylosis without myelopathy or radiculopathy, lumbar region (principal); M51.36 Other intervertebral disc degeneration, lumbar region; E11.40 Type 2 diabetes mellitus with diabetic neuropathy, unspecified
CPT/HCPCS: 64493; 64494; J2795; Q9967

== ENCOUNTER 2023-06-30 08:40 | Outpatient (AMB) | payer OTHER, SELFPAY ==
--- NOTE | 2023-06-30 08:45 | MHC.OFFVIS ---
Intake Vital Signs 06/30/23 09:09 06/30/23 10:17 Height 5 ft 6 in 5 ft 6 in Weight 234 lb 234 lb BMI 37.8 37.8 BP 122/70 140/72 H Blood Pressure Location Lt brachial Lt brachial Position Sitting Sitting Respiration 16 16 Pulse 91 84 Pulse Source Pulse Oximeter Pulse Oximeter Pulse Oximetry (%) 97 97 Oxygen Delivery Method Room Air Room Air Comment Pre-Op Post-OP Intake Visit Reasons: BILATERAL DIAGNOSTIC L3, L4, DRL5 MBB Allergies amoxicillin [AMOXICILLIN] Allergy (Unknown, Verified 06/30/23 09:11) ANAPHYLAXIS duloxetine [From CYMBALTA] Allergy (Unknown, Verified 06/30/23 09:11) UNKNOWN exenatide [From BYETTA] Allergy (Unknown, Verified 06/30/23 09:11) ANAPHYLAXIS insulin detemir [From LEVEMIR U-100 INSULIN] Allergy (Unknown, Verified 06/30/23 09:11) SORE THROAT insulin glargine [From LANTUS U-100 INSULIN] Allergy (Unknown, Verified 06/30/23 09:11) YEAST INFECTION insulin glulisine [From APIDRA U-100 INSULIN] Allergy (Unknown, Verified 06/30/23 09:11) UNKNOWN insulin isophane (NPH) [From HUMULIN N NPH U-100 INSULIN] Allergy (Unknown, Verified 06/30/23 09:11) YEAST INFECTION insulin lispro [From HUMALOG U-100 INSULIN] Allergy (Unknown, Verified 06/30/23 09:11) HIVES insulin regular [From NOVOLIN R REGULAR U-100 INSULN] Allergy (Unknown, Verified 06/30/23 09:11) MUSCLE PAIN lisinopril Allergy (Unknown, Verified 06/30/23 09:11) Cough penicillin V Allergy (Unknown, Verified 06/30/23 09:11) Rash pioglitazone [From ACTOS] Allergy (Unknown, Verified 06/30/23 09:11) HIVES [facility] Medical History Tennis elbow MARIAM (obstructive sleep apnea) Vitamin D deficiency Familial hirsutism Hyperlipidemia Microalbuminuria Hypertension Depression Anxiety Hypercholesterolemia Type 2 diabetes mellitus with peripheral neuropathy Lumbar radiculopathy Right leg pain Surgical History Hx of tubal ligation Social History Alcohol intake: never Patient Tobacco Use Status: Current everyday Tobacco user Tobacco use type: Cigarette Physical Exam Vital Signs: Last Vital Signs Pulse 84 06/30/23 10:17 Resp 16 06/30/23 10:17 BP 140/72 H 06/30/23 10:17 Pulse Ox 97 06/30/23 10:17 Oxygen Delivery Method Room Air 06/30/23 10:17 BMI result Body Mass Index 37.8 Assessment & Plan Assessment & Plan (1) Lumbar degenerative disc disease: Code(s): M51.36 - Other intervertebral disc degeneration, lumbar region (2) Chronic painful diabetic neuropathy: Code(s): E11.40 - Type 2 diabetes mellitus with diabetic neuropathy, unspecified (3) Lumbar spondylosis: Code(s): M47.816 - Spondylosis without myelopathy or radiculopathy, lumbar region Plan: Diagnostic medial branch block L3,L4 dorsal ramus L5 bilateral.? ? ?Informed consent was explained to the patient. All questions were explained and? answered.? The patient was taken inside the operating room where she was positioned prone on the operating table. Time-out was performed delineating correct site, side, the nature of the procedure, patient's allergy, . All operating room staff was participating in OR time-out procedure. ? ? The lower back was prepped with ChloraPrep and draped with sterile towels.? C-arm was brought over the operating field and sq picture of L4-, L5 vertebra and S1 AREA were delineated on the screen.? Point of interest were delineated as confluence of superior articular process of L4 and L5 vertebra bilaterally with corresponding transverse processes as well as confluence of the sacral alae bilaterally with superior articular process of S1.? The projection of the point of interest to the skin were injected with the small amount of local anesthetic lidocaine 2% 1-1.5 cc.? After that 22 gauge 3.5 inch spinal needle was driven sequentially to the points of interest in tunnel vision fashion. After needles gently contacted the bone at the point of interests the needle was injected with small amount of the contrast.? The injection of the contrast did not demonstrate any intravascular or intrathecal spread of the contrast.? After that injection of the? ropivacaine 0.5%-1cc was performed at each needle location.??after that the needles were removed and Bandaids were applied. ? Upon completion of the injections? needle was? removed and sterile Band-Aids were applied.? The patient tolerated procedure very well. (4) Lumbar radiculopathy: Code(s): M54.16 - Radiculopathy, lumbar region Plan Patient is status post 2nd round of application of topical capsaicin 8% for chronic diabetic peripheral neuropathy in bilateral feet. Patient tolerated the procedure without significant discomfort with application of EMLA cream prior to the procedure. She was discharged home in stable condition with discharge instructions. For axial low back pain, will schedule Bilateral Diagnostic L3-L4-DR L5 MBB with local and fluoroscopy. If she has significant relief from the diagnostic blocks for her axial low back pain, will consider either Sprint PNS or RFA depending on her preference. Expectations, risks and benefits were reviewed. Patient is aware she will be contacted to schedule this procedure. All questions were answered and the patient is in agreement of plan. Follow-up after injections and sooner as needed. Greater than 40 minutes were spent in therapeutic application and in coordination of the care. Orders: Orders FL guidance in treatment room Today M47.816 - Spondylosis without myelopathy or radiculopathy, lumbar region Coding Level of Care Code Procedure Only Diagnoses Lumbar degenerative disc disease M51.36 Chronic painful diabetic neuropathy E11.40 Lumbar spondylosis M47.816 Lumbar radiculopathy M54.16
[2023-06-30 09:09] VITALS: BP 122/70; PULSE 91; RESP 16; O2SAT 97; BMI 37.8
[2023-06-30 10:17] VITALS: BP 140/72; PULSE 84; RESP 16; O2SAT 97; BMI 37.8
== END 2023-06-30 10:05 | disposition home or self-care (01) ==
LOC: HO.PMCPRC 08:40
PROVIDERS: PCP Family Medicine; Visit Provider Anesthesiology
DX: M47.816 Spondylosis without myelopathy or radiculopathy, lumbar region (principal)
CPT/HCPCS: 64493; 64494

== ENCOUNTER 2023-07-06 12:52 | Outpatient (AMB) | payer OTHER, SELFPAY ==
--- NOTE | 2023-07-06 13:00 | A.OFFVIS_ITS ---
Intake Vital Signs 3 07/06/23 13:04 Height 5 ft 6 in Weight 236 lb BMI 38.1 BP 143/72 H Blood Pressure Location Lt brachial Position Sitting Pulse 92 Pulse Source Pulse Oximeter Pulse Oximetry (%) 98 Oxygen Delivery Method Room Air Intake Visit Reasons: BILATERAL DIAGNOSTIC L3, L4, DRL5 MBB/06/30/23 Intake Note: Pain today 07/11 Port Surveyor Required: No Accompanied by: Self / Same As Patient Allergies amoxicillin [AMOXICILLIN] Allergy (Unknown, Verified 07/06/23 13:06) ANAPHYLAXIS duloxetine [From CYMBALTA] Allergy (Unknown, Verified 07/06/23 13:06) UNKNOWN exenatide [From BYETTA] Allergy (Unknown, Verified 07/06/23 13:06) ANAPHYLAXIS insulin detemir [From LEVEMIR U-100 INSULIN] Allergy (Unknown, Verified 07/06/23 13:06) SORE THROAT insulin glargine [From LANTUS U-100 INSULIN] Allergy (Unknown, Verified 07/06/23 13:06) YEAST INFECTION insulin glulisine [From APIDRA U-100 INSULIN] Allergy (Unknown, Verified 07/06/23 13:06) UNKNOWN insulin isophane (NPH) [From HUMULIN N NPH U-100 INSULIN] Allergy (Unknown, Verified 07/06/23 13:06) YEAST INFECTION insulin lispro [From HUMALOG U-100 INSULIN] Allergy (Unknown, Verified 07/06/23 13:06) HIVES insulin regular [From NOVOLIN R REGULAR U-100 INSULN] Allergy (Unknown, Verified 07/06/23 13:06) MUSCLE PAIN lisinopril Allergy (Unknown, Verified 07/06/23 13:06) Cough penicillin V Allergy (Unknown, Verified 07/06/23 13:06) Rash pioglitazone [From ACTOS] Allergy (Unknown, Verified 07/06/23 13:06) HIVES HPI HPI Comments 2 History of Present Illness0 Details Patient presents today to assess response to Diagnostic Bilateral L3-L4 DR L5 MBB on 06/30/[address] Ramirez. Patient reports 80% pain relief since procedure for 6.5 hours and ongoing 70% pain relief. She reports improved functioning, mobility and social activities. Patient reports she was able to complete her house chores with minimal to no pain which she was not been able to do prior to injections. Patient is interested to repeat diagnostic lumbar medial branch block injections in order to establish reproducible response to the treatment for potential RFA procedure. She is not candidate for therapeutic injections or Sprint PNS due to elevated A1C levels. She is allergic to multiple forms of insulin and has experienced difficulty managing her DM for several years. Patient follows Endocrinology services at [facility]. Denies any recent cough, cold, infection, fever or other significant changes in medical history since last office visit. Past Procedures: 06/30/23: Diagnostic Bilateral L3-L4 DR L5 MBB-80% pain relief for 6.5 hours, ongoing 70% pain relief PRIOR: Patient is a 57 year old female with prior history of chronic low back pain, pinched nerve L5, lumbar DDD, MARIAM, uncontrolled DM, PAD, peripheral neuropathy, anxiety, depression and former smoker, presents today for evaluation of low back pain with right sided radiculopathy. Patient was followed in the past by [facility] for low back pain and received multiple back injections with good results. She attributes her most recent radicular symptoms due to a mechanical fall in October. She accidentally hit a chair with her walker and fell onto her right side. Reports pain in her lower back pain with radiation into her right buttock, lateral hip and down to the lower leg posteriorly and laterally with cramping in her right calf, numbness and burning pain in both feet. Denies any bladder or bowel dysfunction or saddle anesthesia. Patient reports bilateral lower extremity weakness, uses cane with ambulation. Recent lumbar spine MRI is noted below. Patient is not candidate for therapeutic spine injections due to elevated A1C, nor does she want to be evaluated by Neurosurgery as she is not interested in back surgery. Reports history of overdose on oxycodone-acetaminophen due to forgetfulness and taking double dose, which required hospitalization per patient in 2016. She sees mental therapist for anxiety and depression. Reports she quit smoking on 01/14/23 and takes Nicotine lozenges for craving. Reports increased snacking and eating since quitting. 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 Receives daily [facility] services. Current blood sugar per Dexicomp reads 184. Patient reports most recent A1C was over 10. She follows Dr. Medina Muse at [facility]. Reports right great toenail removed in 2019. Patient requests referral to Podiatry provider as she has not seen one in several years. Location Back pain radiates down right leg posteriorly Duration Chronic pain for many years, progressively worsening Characteristics of symptom or complaint Aching, burning, shooting, stabbing, numbness Aggravating or associated factors Walking, sitting, climbing and descending stairs, movements, weather change Relieving factors Tylenol, Percocet, morphine, gabapentin Treatment PT- increased pain, injections- [facility] pain management-good relief PFSH Medical History Tennis elbow MARIAM (obstructive sleep apnea) Vitamin D deficiency Familial hirsutism Hyperlipidemia Microalbuminuria Hypertension Depression Anxiety Hypercholesterolemia Type 2 diabetes mellitus with peripheral neuropathy Lumbar radiculopathy Right leg pain Surgical History Hx of tubal ligation Social History Alcohol intake: never Patient Tobacco Use Status: Current everyday Tobacco user Tobacco use type: Cigarette Review of Systems Const All systems reviewed & are unremarkable except as noted in HPI and below Physical Exam Vital Signs: Last Vital Signs Pulse 92 07/06/23 13:04 BP 143/72 H 07/06/23 13:04 Pulse Ox 98 07/06/23 13:04 Oxygen Delivery Method Room Air 07/06/23 13:04 BMI result Body Mass Index 38.1 General: Appears afebrile. Alert and oriented. Mood and affect appropriate. Follows and participates in conversation appropriately. Respiratory effort is unlabored. No cough. Able to transition from sit to stand unassisted. Uses cane with ambulation. Ambulates with bilaterally normal heel strike and toe off. Back/Spine/Pelvis Other: Lumbar extension reproduces mild-moderate pain, whereas flexion reproduces mild symptoms. Cervical Spine: cervical ROM normal and No Cervical spine tenderness Thoracic/Lumbar Spine: thoracic and lumbar spine normal to inspection, Lasegue's sign negative, straight leg raise negative bilaterally, pain with thoraco-lumbar ROM, paraspinal muscle tenderness, thoraco-lumbar ROM limited, No thoracic spinal tenderness and lumbar spinal tenderness at L3, at L4 and at L5 Sacroiliac joints: bilaterally (+Stanley's, +Pelvic compression ) tender to palpation Results Reviewed Results Reviewed: CT/CT abdomen pelvis w IV con 11/13/22 OSSEOUS STRUCTURES: Degenerative changes are noted in the spine. Assessment & Plan Assessment & Plan (1) Uncontrolled diabetes mellitus with hyperglycemia: Code(s): E11.65 - Type 2 diabetes mellitus with hyperglycemia (2) Chronic painful diabetic neuropathy: Code(s): E11.40 - Type 2 diabetes mellitus with diabetic neuropathy, unspecified (3) Lumbar degenerative disc disease: Code(s): M51.36 - Other intervertebral disc degeneration, lumbar region (4) Lumbar spondylosis: Code(s): M47.816 - Spondylosis without myelopathy or radiculopathy, lumbar region (5) Lumbar radiculopathy: Code(s): M54.16 - Radiculopathy, lumbar region Plan Patient is status post diagnostic lumbar medial branch blocks with good results with improved functioning, mobility and sleep. Schedule repeat Bilateral Diagnostic L3-L4-DR L5 MBB with local and fluoroscopy for potential RFA procedure. Patient is not interested in PNS trial and is not candidate for neuromodulation or implantable treatments due to persistent elevated A1C levels >10. She follows Endocrinology services at [facility]. Expectations, risks and benefits were reviewed. Patient is aware she will be contacted to schedule this procedure. Patient has allergies to several forms of insulin and requests Allergy and Immunology Referral. Script provided. All questions were answered and the patient is in agreement of plan. Follow-up after injections and sooner as needed. Orders: Referrals 2 Allergy & Immunology Referral E11.40 - Type 2 diabetes mellitus with diabetic neuropathy, unspecified, E11.65 - Type 2 diabetes mellitus with hyperglycemia Coding Level of Care Code Est Pt Level 4 (82525) Diagnoses Uncontrolled diabetes mellitus with hyperglycemia E11.65 Chronic painful diabetic neuropathy E11.40 Lumbar degenerative disc disease M51.36 Lumbar spondylosis M47.816 Lumbar radiculopathy M54.16
[2023-07-06 13:04] VITALS: BP 143/72; PULSE 92; O2SAT 98; BMI 38.1
== END 2023-07-06 13:24 | disposition home or self-care (01) ==
PROVIDERS: PCP Family Medicine; Visit Provider Nurse Practitioner Family
DX: E11.65 Type 2 diabetes mellitus with hyperglycemia (principal); E11.40 Type 2 diabetes mellitus with diabetic neuropathy, unspecified; M51.36 Other intervertebral disc degeneration, lumbar region; M47.816 Spondylosis without myelopathy or radiculopathy, lumbar region; M54.16 Radiculopathy, lumbar region
CPT/HCPCS: 99214

== ENCOUNTER → 2023-07-06 12:52 | Outpatient (BNVA) | payer OTHER, SELFPAY | PROVIDERS: PCP Family Medicine; Visit Provider Nurse Practitioner Family | DX: M51.36 Other intervertebral disc degeneration, lumbar region (principal); M47.816 Spondylosis without myelopathy or radiculopathy, lumbar region; M54.16 Radiculopathy, lumbar region; E11.65 Type 2 diabetes mellitus with hyperglycemia; E11.40 Type 2 diabetes mellitus with diabetic neuropathy, unspecified | CPT/HCPCS: 99212 ==

== ENCOUNTER 2023-07-23 14:30 | Outpatient (REF) | payer OTHER, SELFPAY ==
--- NOTE | ~2023-07-23 | XR_ITS ---
EXAMINATION: XR KNEE, RIGHT CLINICAL INFORMATION: Right knee pain. COMPARISON: None available. TECHNIQUE: Four views of the right knee. FINDINGS: Vascular calcifications. Dense, heterogeneous ossific lesion with ill-defined margins in the distal femur. Correlation with clinical exam and orthopedic consultation recommended to determine further management including possible additional imaging with MRI. Moderate suprapatellar effusion. Tiny posterior patellar medial marginal osteophytes. Mild narrowing of the medial compartment. XR/XR knee RT 3V IMPRESSION: 1. Dense, heterogeneous ossific lesion with ill-defined margins in the distal femur. Correlation with clinical exam and orthopedic consultation recommended to determine further management including possible additional imaging with MRI. 2. Moderate suprapatellar effusion.
== END 2023-07-23 14:31 | disposition home or self-care (01) ==
LOC: HO.XRAY 14:30
PROVIDERS: Visit Provider Family Medicine
DX: M25.561 Pain in right knee (principal)
CPT/HCPCS: 73562

== ENCOUNTER 2023-08-10 13:42 | Outpatient (AMB) | payer OTHER, SELFPAY ==
[2023-08-10 14:16] VITALS: BP 132/61; PULSE 106; O2SAT 97; BMI 37.9
--- NOTE | 2023-08-10 14:16 | A.OFFVIS_ITS ---
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 Required: No Accompanied by: Self / Same As Patient Allergies amoxicillin [AMOXICILLIN] Allergy (Unknown, Verified 08/10/23 14:17) ANAPHYLAXIS duloxetine [From CYMBALTA] Allergy (Unknown, Verified 08/10/23 14:17) UNKNOWN exenatide [From BYETTA] Allergy (Unknown, Verified 08/10/23 14:17) ANAPHYLAXIS insulin detemir [From LEVEMIR U-100 INSULIN] Allergy (Unknown, Verified 08/10/23 14:17) SORE THROAT insulin glargine [From LANTUS U-100 INSULIN] Allergy (Unknown, Verified 08/10/23 14:17) YEAST INFECTION insulin glulisine [From APIDRA U-100 INSULIN] Allergy (Unknown, Verified 08/10/23 14:17) UNKNOWN insulin isophane (NPH) [From HUMULIN N NPH U-100 INSULIN] Allergy (Unknown, Verified 08/10/23 14:17) YEAST INFECTION insulin lispro [From HUMALOG U-100 INSULIN] Allergy (Unknown, Verified 08/10/23 14:17) HIVES insulin regular [From NOVOLIN R REGULAR U-100 INSULN] Allergy (Unknown, Verified 08/10/23 14:17) MUSCLE PAIN lisinopril Allergy (Unknown, Verified 08/10/23 14:17) Cough penicillin V Allergy (Unknown, Verified 08/10/23 14:17) Rash pioglitazone [From ACTOS] Allergy (Unknown, Verified 08/10/23 14:17) HIVES HPI HPI Comments 2 History of Present Illness0 Details Patient presents for 3rd round application of capsaicin 8% topical patch for diabetic neuropathy in bilateral feet. She continues to endorse burning pain with numbness and tingling in her feet, worse at night. Patient also reports chronic low back pain and is undergoing repeat diagnostic lumbar medial branch blocks tomorrow for potential RFA procedure. She reports her blood sugars remain high, in 180-200's range. Patient is not candidate for therapeutic injections or Sprint PNS due to elevated A1C levels. She is allergic to multiple forms of insulin and has experienced difficulty managing her DM for several years. Patient follows Endocrinology services at [facility] and recently had increase in her daily insulin dose some improvement. Denies any recent cough, cold, infection, fever or other significant changes in medical history since last office visit. Past Procedures: 06/30/23: Diagnostic Bilateral L3-L4 DR L5 MBB-80% pain relief for 6.5 hours, ongoing 70% pain relief PRIOR: Patient is a 57 year old female with prior history of chronic low back pain, pinched nerve L5, lumbar DDD, MARIAM, uncontrolled DM, PAD, peripheral neuropathy, anxiety, depression and former smoker, presents today for evaluation of low back pain with right sided radiculopathy. Patient was followed in the past by [facility] for low back pain and received multiple back injections with good results. She attributes her most recent radicular symptoms due to a mechanical fall in October. She accidentally hit a chair with her walker and fell onto her right side. Reports pain in her lower back pain with radiation into her right buttock, lateral hip and down to the lower leg posteriorly and laterally with cramping in her right calf, numbness and burning pain in both feet. Denies any bladder or bowel dysfunction or saddle anesthesia. Patient reports bilateral lower extremity weakness, uses cane with ambulation. Recent lumbar spine MRI is noted below. Patient is not candidate for therapeutic spine injections due to elevated A1C, nor does she want to be evaluated by Neurosurgery as she is not interested in back surgery. Reports history of overdose on oxycodone-acetaminophen due to forgetfulness and taking double dose, which required hospitalization per patient in 2016. She sees mental therapist for anxiety and depression. Reports she quit smoking on 01/14/23 and takes Nicotine lozenges for craving. Reports increased snacking and eating since quitting. She used to work as a [employer] for 21 years and currently on disability due to chronic back pain and neuropathy. Receives daily [employer] services. Current blood sugar per Dexicomp reads 184. Patient reports most recent A1C was over 10. She follows Dr[address] Medina Muse at [facility]. Reports right great toenail removed in 2019. Patient requests referral to Podiatry provider as she has not seen one in several years. Location Back pain radiates down right leg posteriorly Duration Chronic pain for many years, progressively worsening Characteristics of symptom or complaint Aching, burning, shooting, stabbing, numbness Aggravating or associated factors Walking, sitting, climbing and descending stairs, movements, weather change Relieving factors Tylenol, Percocet, morphine, gabapentin Treatment PT- increased pain, injections- [facility]-good relief PFSH Medical History Tennis elbow MARIAM (obstructive sleep apnea) Vitamin D deficiency Familial hirsutism Hyperlipidemia Microalbuminuria Hypertension Depression Anxiety Hypercholesterolemia Type 2 diabetes mellitus with peripheral neuropathy Lumbar radiculopathy Right leg pain Surgical History Hx of tubal ligation Social History Alcohol intake: never Patient Tobacco Use Status: Current everyday Tobacco user Tobacco use type: Cigarette Review of Systems Const All systems reviewed & are unremarkable except as noted in HPI and below Physical Exam Vital Signs: Last Vital Signs Pulse 97 08/10/23 14:43 BP 109/57 L 08/10/23 14:43 Pulse Ox 98 08/10/23 14:43 Oxygen Delivery Method Room Air 08/10/23 14:43 BMI result Body Mass Index 37.9 General: Appears afebrile. Alert and oriented. Mood and affect appropriate. Follows and participates in conversation appropriately. Respiratory effort is unlabored. No cough. Able to transition from sit to stand unassisted. Uses cane with ambulation. Ambulates with bilaterally normal heel strike and toe off. Back/Spine/Pelvis Other: Limited lumbar spine ROM due to pain. Lumbar extension reproduces moderate pain, whereas flexion reproduces mild symptoms. Painful facet loading bilaterally. Cervical Spine: No Cervical spine tenderness Thoracic/Lumbar Spine: thoracic and lumbar spine normal to inspection, Lasegue's sign negative, pain with thoraco-lumbar ROM, paraspinal muscle tenderness, thoraco-lumbar ROM limited, No thoracic spinal tenderness and lumbar spinal tenderness (L3-S1) Pelvis: no buttock tenderness Sacroiliac joints: bilaterally (+Stanley's, +Pelvic compression ) tender to palpation Extrem Other: There is decreased sensation over the soles of the feet and the toes. No breaks in the skin. No soft tissue swelling, no redness or warmth. +2 pedal pulses bilaterally. Reports numbness, tingling and burning in both feet. Normal capillary refill. No edema, cyanosis, clubbing and no calf tenderness. Office Procedures Topical Capsaicin Date 1:: 02/12/23 Date 2:: 05/15/23 Date 3:: 08/10/23 Main area of pain on the body: Bilateral feet and toes Laterality: Bilateral Location of left foot pain: Plantar, Dorsal, Medial, Lateral and Distal Location of right foot pain: Plantar, Dorsal, Medial, Lateral and Distal Quality of pain: Aching, Nagging, Burning, Throbbing, Gnawing and Numb-like Details:: Two patches, 560 cm2 were utilized per each foot. EMLA Cream (lidocaine 2.5% and prilocaine 2.5%) was not applied prior to application of the patches. Patient elected to proceed with patch application. The patient tolerated the procedure well. Patient?s vitals signs remained stable throughout the procedure. Patient was able to complete the stipulated 30 minutes of the therapeutic application without any discomfort. Office Meds capsaicin-skin cleanser 8 % topical kit Performing Provider: GABRIELA Goel Performing Location: [facility] Administered by: GABRIELA Goel on 08/10/23 14:26 2 Dose Route Admin Location Dispensed Lot Number Expiration Date [facility] [place] [employer] 4 ea topical [facility] 4 ea [id number] 10/02/25 [id number] [employer] Results Reviewed Results Reviewed: CT/CT abdomen pelvis w IV con 11/13/22 OSSEOUS STRUCTURES: Degenerative changes are noted in the spine. Assessment & Plan Assessment & Plan (1) Chronic painful diabetic neuropathy: Code(s): E11.40 - Type 2 diabetes mellitus with diabetic neuropathy, unspecified (2) Lumbar spondylosis: Code(s): M47.816 - Spondylosis without myelopathy or radiculopathy, lumbar region (3) Lumbar degenerative disc disease: Code(s): M51.36 - Other intervertebral disc degeneration, lumbar region (4) Chronic painful diabetic neuropathy: Code(s): E11.40 - Type 2 diabetes mellitus with diabetic neuropathy, unspecified Plan Patient is status post 3rd round of application of topical capsaicin 8% for chronic diabetic peripheral neuropathy in bilateral feet. Patient tolerated the procedure without significant discomfort with application of EMLA cream prior to the procedure. She was discharged home in stable condition with discharge instructions. Proceed with repeat Bilateral Diagnostic L3-L4-DR L5 MBB with local and fluoroscopy as scheduled for potential RFA procedure. All questions were answered and the patient is in agreement of plan. Follow-up after injections and sooner as needed. Greater than 35 minutes were spent in therapeutic application and in coordination of the care. Orders: Orders 2 AMB Capsaicin Patch - Practice Supplied Today E11.40 - Type 2 diabetes mellitus with diabetic neuropathy, unspecified Coding Level of Care Code Est Pt Level 4 (27417) Diagnoses Chronic painful diabetic neuropathy E11.40 Lumbar spondylosis M47.816 Lumbar degenerative disc disease M51.36
[2023-08-10 14:43] VITALS: BP 109/57; PULSE 97; O2SAT 98
[2023-08-10 15:04] VITALS: BP 144/63; PULSE 94; O2SAT 97
== END 2023-08-10 15:06 | disposition home or self-care (01) ==
PROVIDERS: PCP Family Medicine; Visit Provider Nurse Practitioner Family
DX: E11.40 Type 2 diabetes mellitus with diabetic neuropathy, unspecified (principal); M47.816 Spondylosis without myelopathy or radiculopathy, lumbar region; M51.36 Other intervertebral disc degeneration, lumbar region
CPT/HCPCS: 17999; 99214

== ENCOUNTER → 2023-08-10 13:42 | Outpatient (BNVA) | payer OTHER, SELFPAY | PROVIDERS: PCP Family Medicine; Visit Provider Nurse Practitioner Family | DX: E11.40 Type 2 diabetes mellitus with diabetic neuropathy, unspecified (principal); M47.816 Spondylosis without myelopathy or radiculopathy, lumbar region; M51.36 Other intervertebral disc degeneration, lumbar region | CPT/HCPCS: 17999; 99212; J7336 ==

== ENCOUNTER 2023-08-11 06:17 | Outpatient (REF) | payer OTHER, SELFPAY ==
--- NOTE | ~2023-08-11 | FL_ITS ---
EXAMINATION: XR FLUOROSCOPY WITH IMAGES CLINICAL INFORMATION: Lumbar spondylosis, without myelopathy or radiculopathy. COMPARISON: Fluoroscopy dated 06/30/2023; lumbar spine radiographs dated 09/02/2019. TECHNIQUE: Fluoroscopy Supervised By: Dr. Catarino Ramirez. Fluoroscopy Time: 0.6 minutes. Cumulative Dose: 19.2 mGy. DAP: 3.69 Gycm2. Images: 6. FINDINGS: The submitted images show injection needles and injected contrast in the vicinity of the bilateral L3-L4, L4-L5 and L5-S1 neural foramina. FL/FL guidance in treatment room IMPRESSION: Intraoperative fluoroscopic guidance is provided during lumbar pain management procedure. Please see the patient's Operative Report for full procedural details.
== END 2023-08-11 06:18 | disposition home or self-care (01) ==
LOC: CF 06:17
PROVIDERS: Visit Provider Anesthesiology
DX: M47.816 Spondylosis without myelopathy or radiculopathy, lumbar region (principal); E11.40 Type 2 diabetes mellitus with diabetic neuropathy, unspecified
CPT/HCPCS: 64493; 64494; J2795; Q9967

== ENCOUNTER 2023-08-11 13:00 | Outpatient (AMB) | payer OTHER, SELFPAY ==
--- NOTE | 2023-08-11 13:11 | A.OFFVIS_ITS ---
Intake Vital Signs 08/11/23 13:12 08/11/23 14:30 Height 5 ft 6 in Weight 235 lb BMI 37.9 BP 130/60 132/60 Blood Pressure Location Lt brachial Lt brachial Position Sitting Sitting Respiration 14 14 Pulse 100 111 H Pulse Source Pulse Oximeter Pulse Oximeter Pulse Oximetry (%) 98 98 Oxygen Delivery Method Room Air Room Air Comment Post-Op Intake Visit Reasons: BILATERAL DIAGNOSTIC L3,L4, DRL5 MBB Allergies amoxicillin [AMOXICILLIN] Allergy (Unknown, Verified 08/11/23 14:31) ANAPHYLAXIS duloxetine [From CYMBALTA] Allergy (Unknown, Verified 08/11/23 14:31) UNKNOWN exenatide [From BYETTA] Allergy (Unknown, Verified 08/11/23 14:31) ANAPHYLAXIS insulin detemir [From LEVEMIR U-100 INSULIN] Allergy (Unknown, Verified 08/11/23 14:31) SORE THROAT insulin glargine [From LANTUS U-100 INSULIN] Allergy (Unknown, Verified 08/11/23 14:31) YEAST INFECTION insulin glulisine [From APIDRA U-100 INSULIN] Allergy (Unknown, Verified 08/11/23 14:31) UNKNOWN insulin isophane (NPH) [From HUMULIN N NPH U-100 INSULIN] Allergy (Unknown, Verified 08/11/23 14:31) YEAST INFECTION insulin lispro [From HUMALOG U-100 INSULIN] Allergy (Unknown, Verified 08/11/23 14:31) HIVES insulin regular [From NOVOLIN R REGULAR U-100 INSULN] Allergy (Unknown, Verified 08/11/23 14:31) MUSCLE PAIN lisinopril Allergy (Unknown, Verified 08/11/23 14:31) Cough penicillin V Allergy (Unknown, Verified 08/11/23 14:31) Rash pioglitazone [From ACTOS] Allergy (Unknown, Verified 08/11/23 14:31) HIVES PFSH Medical History Tennis elbow MARIAM (obstructive sleep apnea) Vitamin D deficiency Familial hirsutism Hyperlipidemia Microalbuminuria Hypertension Depression Anxiety Hypercholesterolemia Type 2 diabetes mellitus with peripheral neuropathy Lumbar radiculopathy Right leg pain Surgical History Hx of tubal ligation Social History Alcohol intake: never Patient Tobacco Use Status: Current everyday Tobacco user Tobacco use type: Cigarette Physical Exam Vital Signs: Last Vital Signs Pulse 111 H 08/11/23 14:30 Resp 14 08/11/23 14:30 BP 132/60 08/11/23 14:30 Pulse Ox 98 08/11/23 14:30 Oxygen Delivery Method Room Air 08/11/23 14:30 BMI result Body Mass Index 37.9 Assessment & Plan Assessment & Plan (1) Chronic painful diabetic neuropathy: Code(s): E11.40 - Type 2 diabetes mellitus with diabetic neuropathy, unspecified (2) Lumbar spondylosis: Code(s): M47.816 - Spondylosis without myelopathy or radiculopathy, lumbar region Plan: Diagnostic medial branch block L3-L4 does ramus L5 bilateral. Informed consent was explained to the patient. All questions were explained and? answered.? The patient was taken inside the operating room where she was positioned prone on the operating table.? Time-out was performed delineating correct site, side, the nature of the procedure, patient's allergy, preoperative antibiotic if needed.? All operating room staff was participating in OR time-out procedure. The lower back was prepped with ChloraPrep and draped with sterile towels.? Sterilely draped C-arm was brought over the operating field and sq picture of L4-and L5 vertebra and S1 AREA were delineated on the screen.? Point of interest were delineated as connection of superior articular process of L4 and L5 vertebra bilaterally with corresponding transverse processes as well as connection of the sacral alae bilaterally with superior articular process of S1.? The projection of the point of interest to the skin were injected with the small amount of local anesthetic lidocaine 2% 1-1.5 cc.? After that 22 gauge 3- 1/2 inch spinal needle was driven sequentially to the points of interest in tunnel vision fashion. After needles gently contacted the bone at the point of interests the needle was injected with small amount of the contrast.? The injection of the contrast did not demonstrate any intravascular or intrathecal spread of the contrast.? After that injection of the?ropivacaine 0.5%-1cc was performed at each needle location.? Upon completion of the injections? needle was? removed and sterile Band-Aids were applied.? The? patient was taken outside of the operating room to recovery room where she recovered uneventfully.? The patient went home without immediate complications. (3) Lumbar degenerative disc disease: Code(s): M51.36 - Other intervertebral disc degeneration, lumbar region (4) Chronic painful diabetic neuropathy: Code(s): E11.40 - Type 2 diabetes mellitus with diabetic neuropathy, unspecified Plan Patient is status post 3rd round of application of topical capsaicin 8% for chronic diabetic peripheral neuropathy in bilateral feet. Patient tolerated the procedure without significant discomfort with application of EMLA cream prior to the procedure. She was discharged home in stable condition with discharge instructions. Proceed with repeat Bilateral Diagnostic L3-L4-DR L5 MBB with local and fluoroscopy as scheduled for potential RFA procedure. All questions were answered and the patient is in agreement of plan. Follow-up after injections and sooner as needed. Greater than 35 minutes were spent in therapeutic application and in coordination of the care. Orders: Orders FL guidance in treatment room 08/11/23 M47.816 - Spondylosis without myelopathy or radiculopathy, lumbar region Coding Level of Care Code Procedure Only Diagnoses Chronic painful diabetic neuropathy E11.40 Lumbar spondylosis M47.816 Lumbar degenerative disc disease M51.36
[2023-08-11 13:12] VITALS: BP 130/60; PULSE 100; RESP 14; O2SAT 98
[2023-08-11 14:30] VITALS: BP 132/60; PULSE 111; RESP 14; O2SAT 98; BMI 37.9
== END 2023-08-11 14:18 | disposition home or self-care (01) ==
LOC: HO.PMCPRC 13:00
PROVIDERS: PCP Family Medicine; Visit Provider Anesthesiology
DX: M47.816 Spondylosis without myelopathy or radiculopathy, lumbar region (principal); E11.40 Type 2 diabetes mellitus with diabetic neuropathy, unspecified; M51.36 Other intervertebral disc degeneration, lumbar region
CPT/HCPCS: 64493; 64494

== ENCOUNTER 2023-08-14 13:03 | Outpatient (AMB) | payer OTHER, SELFPAY ==
[2023-08-14 13:28] VITALS: BP 144/65; PULSE 108; O2SAT 97; BMI 38.0
--- NOTE | 2023-08-14 13:28 | A.OFFVIS_ITS ---
Intake Vital Signs 08/14/23 13:28 Height 5 ft 6 in Weight 235 lb 6 oz BMI 38.0 BP 144/65 H Blood Pressure Location Lt brachial Position Sitting Pulse 108 H Pulse Source Pulse Oximeter Pulse Oximetry (%) 97 Oxygen Delivery Method Room Air Intake Visit Reasons: BILATERAL DIAGNOSTIC L3,L4, DRL5 MBB Intake Note: Pain today 0/10 News Camera Person Required: No Accompanied by: Self / Same As Patient Allergies amoxicillin [AMOXICILLIN] Allergy (Unknown, Verified 08/14/23 13:29) ANAPHYLAXIS duloxetine [From CYMBALTA] Allergy (Unknown, Verified 08/14/23 13:29) UNKNOWN exenatide [From BYETTA] Allergy (Unknown, Verified 08/14/23 13:29) ANAPHYLAXIS insulin detemir [From LEVEMIR U-100 INSULIN] Allergy (Unknown, Verified 08/14/23 13:29) SORE THROAT insulin glargine [From LANTUS U-100 INSULIN] Allergy (Unknown, Verified 08/14/23 13:29) YEAST INFECTION insulin glulisine [From APIDRA U-100 INSULIN] Allergy (Unknown, Verified 08/14/23 13:29) UNKNOWN insulin isophane (NPH) [From HUMULIN N NPH U-100 INSULIN] Allergy (Unknown, Verified 08/14/23 13:29) YEAST INFECTION insulin lispro [From HUMALOG U-100 INSULIN] Allergy (Unknown, Verified 08/14/23 13:29) HIVES insulin regular [From NOVOLIN R REGULAR U-100 INSULN] Allergy (Unknown, Verified 08/14/23 13:29) MUSCLE PAIN lisinopril Allergy (Unknown, Verified 08/14/23 13:29) Cough penicillin V Allergy (Unknown, Verified 08/14/23 13:29) Rash pioglitazone [From ACTOS] Allergy (Unknown, Verified 08/14/23 13:29) HIVES HPI HPI Comments History of Present Illness Details Patient presents today to assess response to repeat Diagnostic Bilateral L3-L4 DR L5 MB on 08/11/[address] Ramirez. Patient reports 80-85% pain relief for 12 hours since procedure with improved functioning, mobility and mild improvement in her sleep. She reports ongoing burning pain and cramps in her lower legs and feet due to diabetic neuropathy. Reports mild pain relief with Qutenza applications. Patient would like to proceed with lumbar medial branch RFA for a longer pain relief of axial low back pain. Patient reports her blood sugars remain high in 200's range. Patient is not candidate for therapeutic injections or Sprint PNS due to elevated A1C levels. She is allergic to multiple forms of insulin and has experienced difficulty managing her DM for several years. Patient follows Endocrinology services at [facility] and has pending Allergy evaluation with h/o multiple insulin allergies. Denies any recent cough, cold, infection, fever or other significant changes in medical history since last office visit. Past Procedures: 08/11/23: Diagnostic Bilateral L3-L4 DR L5 MBB-80-85% pain relief for 12 hours 08/10/23: 3rd Qutenza application for DP N 06/30/23: Diagnostic Bilateral L3-L4 DR L5 MBB-80% pain relief for 6.5 hours, ongoing 70% pain relief 05/15/23: 2nd Qutenza application for DP N 02/12/23: 1st Qutenza application for DP N PRIOR: Patient is a 57 year old female with prior history of chronic low back pain, pinched nerve L5, lumbar DDD, MARIAM, uncontrolled DM, PAD, peripheral neuropathy, anxiety, depression and former smoker, presents today for evaluation of low back pain with right sided radiculopathy. Patient was followed in the past by [facility] for low back pain and received multiple back injections with good results. She attributes her most recent radicular symptoms due to a mechanical fall in October. She accidentally hit a chair with her walker and fell onto her right side. Reports pain in her lower back pain with radiation into her right buttock, lateral hip and down to the lower leg posteriorly and laterally with cramping in her right calf, numbness and burning pain in both feet. Denies any bladder or bowel dysfunction or saddle anesthesia. Patient reports bilateral lower extremity weakness, uses cane with ambulation. Recent lumbar spine MRI is noted below. Patient is not candidate for therapeutic spine injections due to e levated A1C, nor does she want to be evaluated by Neurosurgery as she is not interested in back surgery. Reports history of overdose on oxycodone-acetaminophen due to forgetfulness and taking double dose, which required hospitalization per patient in 2016. She sees mental therapist for anxiety and depression. Reports she quit smoking on 01/14/23 and takes Nicotine lozenges for craving. Reports increased snacking and eating since quitting. 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 Receives daily [employer] services. Current blood sugar per Dexicomp reads 184. Patient reports most recent A1C was over 10. [address] follows Dr. Medina Muse at [facility]. Reports right great toenail removed in 2019. Patient requests referral to Podiatry provider as she has not seen one in several years. Location Back pain radiates down right leg posteriorly Duration Chronic pain for many years, progressively worsening Characteristics of symptom or complaint Aching, burning, shooting, stabbing, numbness Aggravating or associated factors Walking, sitting, climbing and descending stairs, movements, weather change Relieving factors Tylenol, Percocet, morphine, gabapentin Treatment PT- increased pain, injections- [facility]-good relief PFSH Medical History Tennis elbow MARIAM (obstructive sleep apnea) Vitamin D deficiency Familial hirsutism Hyperlipidemia Microalbuminuria Hypertension Depression Anxiety Hypercholesterolemia Type 2 diabetes mellitus with peripheral neuropathy Lumbar radiculopathy Right leg pain Surgical History Hx of tubal ligation Social History Alcohol intake: never Patient Tobacco Use Status: Current everyday Tobacco user Tobacco use type: Cigarette Review of Systems Const All systems reviewed & are unremarkable except as noted in HPI and below Physical Exam Vital Signs: Last Vital Signs Pulse 108 H 08/14/23 13:28 BP 144/65 H 08/14/23 13:28 Pulse Ox 97 08/14/23 13:28 Oxygen Delivery Method Room Air 08/14/23 13:28 BMI result Body Mass Index 38.0 General: Appears afebrile. Alert and oriented. Mood and affect appropriate. Follows and participates in conversation appropriately. Respiratory effort is unlabored. No cough. Able to transition from sit to stand unassisted. Uses cane with ambulation. Ambulates with bilaterally normal heel strike and toe off. Back/Spine/Pelvis Other: Limited lumbar spine ROM due to pain. Lumbar extension reproduces moderate pain, whereas flexion reproduces mild symptoms. Painful facet loading bilaterally. Cervical Spine: cervical ROM normal and No Cervical spine tenderness Thoracic/Lumbar Spine: thoracic and lumbar spine normal to inspection, Lasegue's sign negative, pain with thoraco-lumbar ROM, paraspinal muscle tenderness, thoraco-lumbar ROM limited, No thoracic spinal tenderness and lumbar spinal tenderness (L3-S1) Pelvis: no buttock tenderness and no sciatic notch tenderness Sacroiliac joints: bilaterally (+Stanley's, +Pelvic compression ) tender to palpation Extrem General: Yes capillary refill normal, Yes no clubbing, cyanosis or edema and Yes no calf tenderness Assessment & Plan Assessment & Plan (1) Lumbar degenerative disc disease: Code(s): M51.36 - Other intervertebral disc degeneration, lumbar region (2) Lumbar spondylosis: Code(s): M47.816 - Spondylosis without myelopathy or radiculopathy, lumbar region (3) Chronic painful diabetic neuropathy: Code(s): E11.40 - Type 2 diabetes mellitus with diabetic neuropathy, unspecified (4) Uncontrolled diabetes mellitus with hyperglycemia: Code(s): E11.65 - Type 2 diabetes mellitus with hyperglycemia (5) Chronic painful diabetic neuropathy: Code(s): E11.40 - Type 2 diabetes mellitus with diabetic neuropathy, unspecified (6) Lumbar radiculopathy: Code(s): M54.16 - Radiculopathy, lumbar region Plan Patient is status post repeat diagnostic lumbar medial branch blocks with good results with improved functioning, mobility and sleep. Schedule repeat Bilateral L3-L4-DR L5 medial branch RFA with sedation and fluoroscopy. Patient is not is not candidate for neuromodulation, implantable treatments or therapeutic injections due to persistent elevated A1C levels >10. She follows Endocrinology services at [facility]. Expectations, risks and benefits were reviewed. Patient is aware she will be contacted to schedule this procedure. Short script provided for tramadol for moderate-severe low back pain. Side effects and precautions discussed with patient. Patient reports she was taking tramadol in 2022 and was tolerating this very well. Narcan provided. All questions were answered and the patient is in agreement of plan. Follow-up after RFA procedure and sooner as needed. Medications: New tramadol 50 mg PO TID 10 days PRN 30 tabs 0RF pain (scale score 7-10) E11.40 - Type 2 diabetes mellitus with diabetic neuropathy, unspecified, M47.816 - Spondylosis without myelopathy or radiculopathy, lumbar region, M51.36 - Other intervertebral disc degeneration, lumbar region naloxone 4 mg/actuation (Narcan) spray 1 dose into ONE nostril; alternate nostrils w each dose until help arrives 4 mg intranasal Q2M PRN 2 ea 0RF opioid overdose Coding Level of Care Code Est Pt Level 4 (73267) Diagnoses Lumbar degenerative disc disease M51.36 Lumbar spondylosis M47.816 Chronic painful diabetic neuropathy E11.40 Uncontrolled diabetes mellitus with hyperglycemia E11.65 Lumbar radiculopathy M54.16
== END 2023-08-14 14:02 | disposition home or self-care (01) ==
PROVIDERS: PCP Family Medicine; Visit Provider Nurse Practitioner Family
DX: M51.36 Other intervertebral disc degeneration, lumbar region (principal); M47.816 Spondylosis without myelopathy or radiculopathy, lumbar region; E11.40 Type 2 diabetes mellitus with diabetic neuropathy, unspecified; E11.65 Type 2 diabetes mellitus with hyperglycemia; M54.16 Radiculopathy, lumbar region
CPT/HCPCS: 99214

== ENCOUNTER → 2023-08-14 13:03 | Outpatient (BNVA) | payer OTHER, SELFPAY | PROVIDERS: PCP Family Medicine; Visit Provider Nurse Practitioner Family | DX: M51.36 Other intervertebral disc degeneration, lumbar region (principal); M47.816 Spondylosis without myelopathy or radiculopathy, lumbar region; M54.16 Radiculopathy, lumbar region; E11.40 Type 2 diabetes mellitus with diabetic neuropathy, unspecified; E11.65 Type 2 diabetes mellitus with hyperglycemia | CPT/HCPCS: 99212 ==

== ENCOUNTER 2023-08-19 10:55 | Outpatient (AMB) | payer OTHER, SELFPAY ==
[2023-08-19 11:45] VITALS: BMI 37.9
--- NOTE | 2023-08-19 11:45 | A.OFFVIS_ITS ---
Intake Vital Signs 08/19/23 11:45 Height 5 ft 6 in Weight 235 lb BMI 37.9 Intake Visit Reasons: N/P rt knee pain/ s/p fall 1 yr ago Intake Note: Estefania is a 57 year old female who presents as a new patient with Right knee pain. Patient state her pain has been going on since a fall about a year ago and is a 9 on the 1-10 pain scale. She states she is using tramadol with little relief. She denies injury and surgery. The patient has done physical therapy which aggravated her pain. She has also tried Tylenol and anti-inflammatory medicines which gave her minimal relief. She has had injections in the past which gave her no relief. Allergies amoxicillin [AMOXICILLIN] Allergy (Unknown, Verified 08/19/23 12:02) ANAPHYLAXIS duloxetine [From CYMBALTA] Allergy (Unknown, Verified 08/19/23 12:02) UNKNOWN exenatide [From BYETTA] Allergy (Unknown, Verified 08/19/23 12:02) ANAPHYLAXIS insulin detemir [From LEVEMIR U-100 INSULIN] Allergy (Unknown, Verified 08/19/23 12:02) SORE THROAT insulin glargine [From LANTUS U-100 INSULIN] Allergy (Unknown, Verified 08/19/23 12:02) YEAST INFECTION insulin glulisine [From APIDRA U-100 INSULIN] Allergy (Unknown, Verified 08/19/23 12:02) UNKNOWN insulin isophane (NPH) [From HUMULIN N NPH U-100 INSULIN] Allergy (Unknown, Verified 08/19/23 12:02) YEAST INFECTION insulin lispro [From HUMALOG U-100 INSULIN] Allergy (Unknown, Verified 08/19/23 12:02) HIVES insulin regular [From NOVOLIN R REGULAR U-100 INSULN] Allergy (Unknown, Verified 08/19/23 12:02) MUSCLE PAIN lisinopril Allergy (Unknown, Verified 08/19/23 12:02) Cough penicillin V Allergy (Unknown, Verified 08/19/23 12:02) Rash pioglitazone [From ACTOS] Allergy (Unknown, Verified 08/19/23 12:02) HIVES [facility] Medical History Tennis elbow MARIAM (obstructive sleep apnea) Vitamin D deficiency Familial hirsutism Hyperlipidemia Microalbuminuria Hypertension Depression Anxiety Hypercholesterolemia Type 2 diabetes mellitus with peripheral neuropathy Lumbar radiculopathy Right leg pain Surgical History Hx of tubal ligation Social History Alcohol intake: never Patient Tobacco Use Status: Current everyday Tobacco user Tobacco use type: Cigarette Physical Exam Vital Signs: BMI result Body Mass Index 37.9 Const Other: Well-nourished well-developed very friendly female awake alert and oriented x3 in no acute distress Extrem Other: Bilateral lower extremity examination shows good capillary refill, no skin lesions noted, normal sensation light touch Right knee examination shows a minimal effusion, minimal crepitus range of motion, tenderness along her medial joint line, positive Sola's test, no instability Results Reviewed Results Reviewed: Standing full weight-bearing x-rays of the patient's right knee show minimal joint space narrowing, there is a ?dense, heterogeneous ossific lesion with ill- defined margins in the distal femur Assessment & Plan Assessment & Plan (1) Lesion of bone of knee: Code(s): M89.9 - Disorder of bone, unspecified Plan Ms. Abdelrahman Buck presents with right knee pain and mechanical symptoms possibly due to a tear of her medial meniscus. She also has an ossific lesion in her right distal femur. The radiologist recommended imaging with an MRI for further information regarding lesion, I ordered both an MRI of her right distal femur to evaluate the lesion and an MRI of her right knee to evaluate her for possible medial meniscus tearing. I will see her back once the studies are completed to discuss the findings and treatment options. Grade to call me at any time should questions regarding her orthopedic management arise. Thank you very much for asking me to see this very friendly patient. I spent 22 minutes in reviewing the patient's records and imaging studies, seeing the patient and documenting in the medical record. Orders: Orders MR femur RT wo/w con Today M89.9 - Disorder of bone, unspecified MR knee RT wo con Today M25.561 - Pain in right knee Coding Level of Care Code New Pt Level 2 (79361) Diagnoses Lesion of bone of knee M89.9
== END 2023-08-19 12:18 | disposition home or self-care (01) ==
PROVIDERS: PCP Family Medicine; Visit Provider Orthopaedic Surgery
DX: M89.9 Disorder of bone, unspecified (principal)
CPT/HCPCS: 99202

== ENCOUNTER → 2023-08-19 10:55 | Outpatient (BNVA) | payer OTHER, SELFPAY | PROVIDERS: PCP Family Medicine; Visit Provider Orthopaedic Surgery | DX: M89.9 Disorder of bone, unspecified (principal) | CPT/HCPCS: 99202 ==

== ENCOUNTER 2023-10-28 14:53 | Outpatient (REF) | payer OTHER, SELFPAY ==
--- NOTE | ~2023-10-28 | MR_ITS ---
EXAMINATION: MR KNEE WITHOUT AND WITH CONTRAST, RIGHT CLINICAL INFORMATION: Right knee pain. Abnormal x-ray. COMPARISON: Radiographs 07/23/2023 TECHNIQUE: MRI of the knee was performed before and after the intravenous administration of 10 mL Gadavist on a high-field scanner. FINDINGS: MENISCI: Medial meniscus: Ill-defined degenerative partial tearing at the root of the posterior horn. Intrasubstance degenerative signal at the junction of the posterior horn and body. Lateral meniscus: Intact. LIGAMENTS: Cruciate: Intact. Collateral: Longitudinal interstitial partial tear of the proximal MCL of indeterminate age. The lateral collateral ligament complex is intact. EXTENSOR MECHANISM: Intact. ARTICULAR CARTILAGE/BONE: Patellofemoral compartment: Normal. Medial compartment: Mild peripheral cartilage thinning in the weightbearing aspect medially. Lateral compartment: Normal. JOINT FLUID AND BURSAE: Small joint effusion. There is a lobulated, nonaggressive appearing lesion in the distal femoral metadiaphysis moderate T2 signal hyperintensity, foci of low signal corresponding with calcification on the radiographs, and interspersed fat measuring 2.0 x 3.0 cm. Imaging features are characteristic of a benign enchondroma. MR/MR knee RT wo/w con IMPRESSION: 1. Ill-defined degenerative partial tearing at the root of the posterior horn of the medial meniscus. 2. Longitudinal interstitial partial tear of the proximal MCL of indeterminate age. 3. Mild medial compartment osteoarthritis with a small joint effusion. 4. Nonaggressive appearing lesion of the distal femoral metadiaphysis with imaging features characteristic of a benign enchondroma.
[2023-10-28] MEDS: gadobutroL 10 ML VIAL IVPUSH (16:24)
== END 2023-10-28 14:54 | disposition home or self-care (01) ==
LOC: HO.MRI 14:53
PROVIDERS: PCP Family Medicine; Visit Provider Family Medicine
DX: R93.6 Abnormal findings on diagnostic imaging of limbs (principal)
CPT/HCPCS: 73723; A9585

== ENCOUNTER 2023-11-09 13:58 | Outpatient (AMB) | payer OTHER, SELFPAY ==
[2023-11-09 14:05] VITALS: BP 177/79; PULSE 89; O2SAT 96; BMI 38.4
--- NOTE | 2023-11-09 14:05 | A.OFFVIS_ITS ---
Vital Signs 3 11/09/23 14:05 11/09/23 14:41 11/09/23 15:04 Height 5 ft 6 in Weight 238 lb BMI 38.4 BP 177/79 H 149/70 H 148/75 H Blood Pressure Location Lt brachial Lt brachial Lt brachial Position Sitting Sitting Sitting Pulse 89 89 84 Pulse Source Pulse Oximeter Pulse Oximeter Pulse Oximeter Pulse Oximetry (%) 96 97 98 Oxygen Delivery Method Room Air Room Air Room Air Comment 15 mins after qutenza application 30 mins after qutenza application Intake Visit Reasons: QUTENZA-DN Intake Note: Pain today 12/11 Transitional Care Liaison Required: No Accompanied by: Self / Same As Patient Allergies amoxicillin [AMOXICILLIN] Allergy (Unknown, Verified 11/09/23 14:06) ANAPHYLAXIS duloxetine [From CYMBALTA] Allergy (Unknown, Verified 11/09/23 14:06) UNKNOWN exenatide [From BYETTA] Allergy (Unknown, Verified 11/09/23 14:06) ANAPHYLAXIS insulin detemir [From LEVEMIR U-100 INSULIN] Allergy (Unknown, Verified 11/09/23 14:06) SORE THROAT insulin glargine [From LANTUS U-100 INSULIN] Allergy (Unknown, Verified 11/09/23 14:06) YEAST INFECTION insulin glulisine [From APIDRA U-100 INSULIN] Allergy (Unknown, Verified 11/09/23 14:06) UNKNOWN insulin isophane (NPH) [From HUMULIN N NPH U-100 INSULIN] Allergy (Unknown, Verified 11/09/23 14:06) YEAST INFECTION insulin lispro [From HUMALOG U-100 INSULIN] Allergy (Unknown, Verified 11/09/23 14:06) HIVES insulin regular [From NOVOLIN R REGULAR U-100 INSULN] Allergy (Unknown, Verified 11/09/23 14:06) MUSCLE PAIN lisinopril Allergy (Unknown, Verified 11/09/23 14:06) Cough penicillin V Allergy (Unknown, Verified 11/09/23 14:06) Rash pioglitazone [From ACTOS] Allergy (Unknown, Verified 11/09/23 14:06) HIVES HPI Comments Details: Patient presents today for 4th application of capsaicin 8% topical patch for diabetic neuropathy in bilateral feet. Denies any recent cough, cold, infection, fever or other significant changes in medical history since last office visit. Patient is scheduled for lumbar medial branch RFA procedure this Thursday. She reports her blood sugars have improved. Currently shows 118 via Dexicom after recent lunch. She reports stopping pasta, bread and rice meals and is able to control her blood sugars better. Denies any recent cough, cold, infection, fever or other significant changes in medical history since last office visit. Past Procedures: 08/11/23: Diagnostic Bilateral L3-L4 DR L5 MBB-80-85% pain relief for 12 hours 08/10/23: 3rd Qutenza application for DPN 06/30/23: Diagnostic Bilateral L3-L4 DR L5 MBB-80% pain relief for 6.5 hours, ongoing 70% pain relief 05/15/23: 2nd Qutenza application for DPN 02/12/23: 1st Qutenza application for DPN PRIOR: Patient is a 57 year old female with prior history of chronic low back pain, pinched nerve L5, lumbar DDD, MARIAM, uncontrolled DM, PAD, peripheral neuropathy, anxiety, depression and former smoker, presents today for evaluation of low back pain with right sided radiculopathy. Patient was followed in the past by [facility] [place] for low back pain and received multiple back injections with good results. She attributes her most recent radicular symptoms due to a mechanical fall in October. She accidentally hit a chair with her walker and fell onto her right side. Reports pain in her lower back pain with radiation into her right buttock, lateral hip and down to the lower leg posteriorly and laterally with cramping in her right calf, numbness and burning pain in both feet. Denies any bladder or bowel dysfunction or saddle anesthesia. Patient reports bilateral lower extremity weakness, uses cane with ambulation. Recent lumbar spine MRI is noted below. Patient is not candidate for therapeutic spine injections due to elevated A1C, nor does she want to be evaluated by Neurosurgery as she is not interested in back surgery. Reports history of overdose on oxycodone-acetaminophen due to forgetfulness and taking double dose, which required hospitalization per patient in 2016. She sees mental therapist for anxiety and depression. Reports she quit smoking on 01/14/23 and takes Nicotine lozenges for craving. Reports increased snacking and eating since quitting. 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 Current blood sugar per Dexicomp reads 184. Patient reports most recent A1C was over 10. [address] follows [address] Medina Muse at [facility]. Reports right great toenail removed in 2019. Patient requests referral to Podiatry provider as she has not seen one in several years. Location Back pain radiates down right leg posteriorly Duration Chronic pain for many years, progressively worsening Characteristics of symptom or complaint Aching, burning, shooting, stabbing, numbness Aggravating or associated factors Walking, sitting, climbing and descending stairs, movements, weather change Relieving factors Tylenol, Percocet, morphine, gabapentin Treatment PT- increased pain, injections- [facility] pain [facility]-good relief PFSH Medical History Tennis elbow MARIAM (obstructive sleep apnea) Vitamin D deficiency Familial hirsutism Hyperlipidemia Microalbuminuria Hypertension Depression Anxiety Hypercholesterolemia Type 2 diabetes mellitus with peripheral neuropathy Lumbar radiculopathy Right leg pain Surgical History Hx of tubal ligation Social History Alcohol intake: never Patient Tobacco Use Status: Current everyday Tobacco user Tobacco use type: Cigarette Review of Systems Const All systems reviewed & are unremarkable except as noted in HPI and below Physical Exam Vital Signs: Last Vital Signs Pulse 89 11/09/23 14:41 BP 149/70 H 11/09/23 14:41 Pulse Ox 97 11/09/23 14:41 Oxygen Delivery Method Room Air 11/09/23 14:41 BMI result Body Mass Index 38.4 General: Appears afebrile. Mild to moderate distress due to low back pain. Alert and oriented. Mood and affect appropriate. Follows and participates in conversation appropriately. Respiratory effort is unlabored. No cough. Able to transition from sit to stand unassisted. Uses cane with ambulation. Ambulates with bilaterally normal heel strike and toe off. General: Yes no CVA tenderness Back/Spine/Pelvis Other: Limited lumbar spine ROM due to pain. Lumbar extension reproduces moderate pain, whereas flexion reproduces mild symptoms. Painful facet loading bilaterally. Back: no CVA tenderness Cervical Spine: cervical ROM normal and No Cervical spine tenderness Thoracic/Lumbar Spine: thoracic and lumbar spine normal to inspection, Lasegue's sign negative, straight leg raise negative bilaterally, pain with thoraco-lumbar ROM, paraspinal muscle tenderness, thoraco-lumbar ROM limited, No thoracic spinal tenderness and lumbar spinal tenderness (L3-S1) Pelvis: no buttock tenderness Sacroiliac joints: bilaterally (+Stanley's) tender to palpation Extrem Other: There is decreased sensation over the soles of the feet and the toes. No breaks in the skin. No soft tissue swelling, no redness or warmth. +2 pedal pulses bilaterally. Reports numbness, tingling and burning in both feet. Normal capillary refill. No edema, cyanosis, clubbing and no calf tenderness. Office Procedures Topical Capsaicin Date 1:: 02/12/23 Date 2:: 05/15/22 Date 3:: 08/10/23 Date 4:: 11/09/23 Main area of pain on the body: Bilateral feet and toes Laterality: Bilateral Location of left foot pain: Anterior, Plantar, Dorsal, Medial, Lateral and Distal Location of right foot pain: Anterior, Plantar, Dorsal, Medial, Lateral and Distal Quality of pain: Aching, Burning, Gnawing, Numb-like and Tiring Details:: Two patches, 560 cm2 were utilized per each foot. EMLA Cream (lidocaine 2.5% and prilocaine 2.5%) was not applied at home by patient prior to application of the patches. Patient elected to proceed with the procedure without EMLA cream. The patient tolerated the procedure well. Patient?s vitals signs remained stable throughout the procedure. Patient was able to complete the stipulated 30 minutes of the therapeutic application without any discomfort. Office Meds capsaicin-skin cleanser 8 % topical kit Performing Provider: GABRIELA Goel Performing Location: [facility] Administered by: GABRIELA Goel on 11/09/23 14:25 2 Dose Route Admin Location Dispensed Lot Number Expiration Date NDC [employer] 4 ea topical [facility] 4 ea [id number] 11/01/25 00480-663-90 [place] Results Reviewed Results Reviewed: CT/CT abdomen pelvis w IV con 11/13/22 OSSEOUS STRUCTURES: Degenerative changes are noted in the spine. Assessment & Plan Assessment & Plan (1) Chronic painful diabetic neuropathy: Code(s): E11.40 - Type 2 diabetes mellitus with diabetic neuropathy, unspecified Category: Medical (2) Lumbar spondylosis: Code(s): M47.816 - Spondylosis without myelopathy or radiculopathy, lumbar region Category: Medical (3) Lumbar degenerative disc disease: Code(s): M51.36 - Other intervertebral disc degeneration, lumbar region Category: Medical (4) Chronic painful diabetic neuropathy: Code(s): E11.40 - Type 2 diabetes mellitus with diabetic neuropathy, unspecified Plan Patient is status post 4th application of topical capsaicin 8% for chronic diabetic peripheral neuropathy in bilateral feet. Patient tolerated the procedure without significant discomfort with application of EMLA cream prior to the procedure. She was discharged home in stable condition with discharge instructions. Proceed with Bilateral L3-L4-DR L5 MB RFA as scheduled for this Thursday. Patient reports she stopped Aspirin as instructed. All questions were answered and the patient is in agreement of plan. Follow-up after RFA procedure and sooner as needed. Greater than 35 minutes were spent in therapeutic application and in coordination of the care. Orders: Orders 2 AMB Capsaicin Patch - Practice Supplied Today E11.40 - Type 2 diabetes mellitus with diabetic neuropathy, unspecified Medications: Changed 2 From lidocaine-prilocaine 2.5-2.5 % Apply to both feet 15-30 min prior to Qutenza on 02/12/23 1 appl topical ONCE 30 grams 0RF pain E11.40 - Type 2 diabetes mellitus with diabetic neuropathy, unspecified To lidocaine-prilocaine 2.5-2.5 % Apply to both feet 15-30 min prior to Qutenza 1 appl topical ONCE 30 grams 0RF pain E11.40 - Type 2 diabetes mellitus with diabetic neuropathy, unspecified Coding Level of Care Code Est Pt Level 4 (26078) Diagnoses Chronic painful diabetic neuropathy E11.40 Lumbar spondylosis M47.816 Lumbar degenerative disc disease M51.36
[2023-11-09 14:41] VITALS: BP 149/70; PULSE 89; O2SAT 97
[2023-11-09 15:04] VITALS: BP 148/75; PULSE 84; O2SAT 98
== END 2023-11-09 15:03 | disposition home or self-care (01) ==
PROVIDERS: PCP Family Medicine; Visit Provider Nurse Practitioner Family
DX: E11.40 Type 2 diabetes mellitus with diabetic neuropathy, unspecified (principal); M47.816 Spondylosis without myelopathy or radiculopathy, lumbar region; M51.36 Other intervertebral disc degeneration, lumbar region
CPT/HCPCS: 17999; 99214

== ENCOUNTER → 2023-11-09 13:58 | Outpatient (BNVA) | payer OTHER, SELFPAY | PROVIDERS: PCP Family Medicine; Visit Provider Nurse Practitioner Family | DX: E11.40 Type 2 diabetes mellitus with diabetic neuropathy, unspecified (principal); M47.816 Spondylosis without myelopathy or radiculopathy, lumbar region; M51.36 Other intervertebral disc degeneration, lumbar region | CPT/HCPCS: 17999; 99212; J7336 ==

== ENCOUNTER 2023-11-13 10:47 | Day surgery (SDC) | payer OTHER, SELFPAY ==
[2023-11-11 11:31] VITALS: BMI 38.4
--- NOTE | 2023-11-11 14:21 | HO.ANESPROP2 ---
Documented by User: Shelby Salinas NP 11/11/23 14:25 HPI - Anesthesia Eval Consult details Narrative: 58yo F for Bilateral L3-L4-DR L5 Medial Branch Radiofrequency AB PMFSH Active Problems Active Problems: All Active Problems Right knee pain (Acute) Lesion of bone of knee (Acute) Chronic painful diabetic neuropathy (Acute) Uncontrolled diabetes mellitus with hyperglycemia (Acute) Lumbar spondylosis (Acute) Lumbar degenerative disc disease (Acute) Lumbar radiculopathy (Acute) Past Medical History Medical History Tennis elbow MARIAM (obstructive sleep apnea) Vitamin D deficiency Familial hirsutism Hyperlipidemia Microalbuminuria Hypertension Depression Anxiety Hypercholesterolemia Type 2 diabetes mellitus with peripheral neuropathy Lumbar radiculopathy Right leg pain Surgical History Surgical History (Updated 11/13/23 @ 11:14 by Coreen Fontanez) Previous back surgery History of carpal tunnel release Hx of tubal ligation Social History Social History Alcohol intake: never Patient Tobacco Use Status: Former Tobacco user Tobacco use type: Cigarette Years Smoked: 40 Smoked in Last 30 Days: No Use of substances other than those prescribed or required for medical reasons: No Are you DNR?: No Advance Directives: No Advance Directives Information Provided: Yes Meds Allergies Allergy/AdvReac Type Severity Reaction Status Date / Time amoxicillin [AMOXICILLIN] Allergy Severe ANAPHYLAXIS Verified 11/13/23 11:15 exenatide [From BYETTA] Allergy Severe ANAPHYLAXIS Verified 11/13/23 11:15 insulin detemir Allergy Severe SORE THROAT Verified 11/13/23 11:15 [From LEVEMIR U-100 INSULIN] insulin glargine Allergy Severe YEAST Verified 11/13/23 11:15 [From LANTUS U-100 INSULIN] INFECTION insulin glulisine Allergy Severe UNKNOWN Verified 11/13/23 11:15 [From APIDRA U-100 INSULIN] insulin lispro Allergy Severe HIVES Verified 11/13/23 11:15 [From HUMALOG U-100 INSULIN] insulin regular Allergy Severe MUSCLE PAIN Verified 11/13/23 11:15 [From NOVOLIN R REGULAR U-100 INSULN] lisinopril Allergy Severe Cough Verified 11/13/23 11:15 penicillin V Allergy Severe Rash Verified 11/13/23 11:15 pioglitazone [From ACTOS] Allergy Severe HIVES Verified 11/13/23 11:15 insulin isophane (NPH) Allergy Intermediate YEAST Verified 11/13/23 11:15 [From HUMULIN N NPH U-100 INFECTION INSULIN] duloxetine [From CYMBALTA] Allergy Unknown UNKNOWN Verified 11/13/23 11:15 Home Medications ?Medication ?Instructions ?Recorded ?Confirmed ?Last Taken ?Type aspirin 81 mg tablet,delayed 81 mg PO DAILY 01/26/23 11/13/23 11/06/23 History release atorvastatin 20 mg tablet 20 mg PO DAILY 01/26/23 11/13/23 11/13/23 History citalopram 10 mg tablet (Celexa) 10 mg PO DAILY 01/26/23 11/13/23 Unknown History gabapentin 800 mg tablet 800 mg PO TID 01/26/23 11/13/23 11/13/23 History glipizide 10 mg tablet, extended 10 mg PO BID 01/26/23 11/13/23 11/13/23 History release 24 hr hydroxyzine HCl 25 mg tablet 25 mg PO BID PRN Anxiety 01/26/23 11/13/23 Unknown History losartan 100 mg tablet 100 mg PO DAILY 01/26/23 11/13/23 11/13/23 History metformin 500 mg tablet 1,000 mg PO BID 01/26/23 11/13/23 11/13/23 History fluoxetine 40 mg capsule 40 mg PO DAILY 05/15/23 11/13/23 Unknown History ketorolac 0.5 % eye drops 1 drp ophthalmic (eye) DAILY 06/30/23 11/13/23 Unknown History zolpidem 10 mg tablet 10 mg PO BEDTIME PRN Sleep 08/10/23 11/13/23 Unknown History insulin degludec 200 unit/mL (3 100 unit subcut DAILY 11/09/23 11/13/23 11/12/23 21:00 History mL) subcutaneous pen (Tresiba 200 units FlexTouch U-200 insulin) hydrochlorothiazide 12.5 mg tablet 12.5 mg PO DAILY 11/13/23 11/13/23 11/13/23 History insulin aspart U-100 100 unit/mL 80 unit subcut TID 11/13/23 11/13/23 11/12/23 17:00 History (3 mL) subcutaneous pen (Novolog 80 units FlexPen U-100 Insulin aspart) Exam Height,Weight and Vital Signs: Height 5 ft 6 in Weight 107.955 kg Pertinent Lab Results Pertinent Lab Results: CBC and BMP from outside facility 07/2023 WNL Assessment and Plan Assessment Anesthesia Assessment: Chart Reviewed Documented by User: Carri Adair MD 11/13/23 13:03 [facility] Past Medical History Medical History Tennis elbow MARIAM (obstructive sleep apnea) Vitamin D deficiency Familial hirsutism Hyperlipidemia Microalbuminuria Hypertension Depression Anxiety Hypercholesterolemia Type 2 diabetes mellitus with peripheral neuropathy Lumbar radiculopathy Right leg pain Family History Family history of problems with anesthesia: No Surgical History Surgical History (Updated 11/13/23 @ 11:14 by Coreen Fontanez) Previous back surgery History of carpal tunnel release Hx of tubal ligation History of Problems with Anesthesia: No Social History Social History Alcohol intake: never Patient Tobacco Use Status: Former Tobacco user Tobacco use type: Cigarette Years Smoked: 40 Smoked in Last 30 Days: No Use of substances other than those prescribed or required for medical reasons: No Are you DNR?: No Advance Directives: No Advance Directives Information Provided: Yes Meds Allergies Allergy/AdvReac Type Severity Reaction Status Date / Time amoxicillin [AMOXICILLIN] Allergy Severe ANAPHYLAXIS Verified 11/13/23 11:15 exenatide [From BYETTA] Allergy Severe ANAPHYLAXIS Verified 11/13/23 11:15 insulin detemir Allergy Severe SORE THROAT Verified 11/13/23 11:15 [From LEVEMIR U-100 INSULIN] insulin glargine Allergy Severe YEAST Verified 11/13/23 11:15 [From LANTUS U-100 INSULIN] INFECTION insulin glulisine Allergy Severe UNKNOWN Verified 11/13/23 11:15 [From APIDRA U-100 INSULIN] insulin lispro Allergy Severe HIVES Verified 11/13/23 11:15 [From HUMALOG U-100 INSULIN] insulin regular Allergy Severe MUSCLE PAIN Verified 11/13/23 11:15 [From NOVOLIN R REGULAR U-100 INSULN] lisinopril Allergy Severe Cough Verified 11/13/23 11:15 penicillin V Allergy Severe Rash Verified 11/13/23 11:15 pioglitazone [From ACTOS] Allergy Severe HIVES Verified 11/13/23 11:15 insulin isophane (NPH) Allergy Intermediate YEAST Verified 11/13/23 11:15 [From HUMULIN N NPH U-100 INFECTION INSULIN] duloxetine [From CYMBALTA] Allergy Unknown UNKNOWN Verified 11/13/23 11:15 Home Medications ?Medication ?Instructions ?Recorded ?Confirmed ?Last Taken ?Type aspirin 81 mg tablet,delayed 81 mg PO DAILY 01/26/23 11/13/23 11/06/23 History release atorvastatin 20 mg tablet 20 mg PO DAILY 01/26/23 11/13/23 11/13/23 History citalopram 10 mg tablet (Celexa) 10 mg PO DAILY 01/26/23 11/13/23 Unknown History gabapentin 800 mg tablet 800 mg PO TID 01/26/23 11/13/23 11/13/23 History glipizide 10 mg tablet, extended 10 mg PO BID 01/26/23 11/13/23 11/13/23 History release 24 hr hydroxyzine HCl 25 mg tablet 25 mg PO BID PRN Anxiety 01/26/23 11/13/23 Unknown History losartan 100 mg tablet 100 mg PO DAILY 01/26/23 11/13/23 11/13/23 History metformin 500 mg tablet 1,000 mg PO BID 01/26/23 11/13/23 11/13/23 History fluoxetine 40 mg capsule 40 mg PO DAILY 05/15/23 11/13/23 Unknown History ketorolac 0.5 % eye drops 1 drp ophthalmic (eye) DAILY 06/30/23 11/13/23 Unknown History zolpidem 10 mg tablet 10 mg PO BEDTIME PRN Sleep 08/10/23 11/13/23 Unknown History insulin degludec 200 unit/mL (3 100 unit subcut DAILY 11/09/23 11/13/23 11/12/23 21:00 History mL) subcutaneous pen (Tresiba 200 units FlexTouch U-200 insulin) hydrochlorothiazide 12.5 mg tablet 12.5 mg PO DAILY 11/13/23 11/13/23 11/13/23 History insulin aspart U-100 100 unit/mL 80 unit subcut TID 11/13/23 11/13/23 11/12/23 17:00 History (3 mL) subcutaneous pen (Novolog 80 units FlexPen U-100 Insulin aspart) Exam Airway Mallampati Class: II (think neck) TM Dist: >3cm Neck ROM: Full Partial: Upper Heart: rrr Lungs: cta Assessment and Plan Assessment Anesthesia Assessment: Anesthesia Plan Discussed Final Anesthetic Review Family History of Problems with Anesthesia: No History of Problems with Anesthesia: No NPO: Yes ASA Class: III Final Preanesthetic Review: No Changes in Pt Med Stat, Meds/Allgs Chart Reviewed and Consent Obtained/Reviewed Patient Risk: Intermediate Procedure Risk: Low Anesthetic Plan Anesthetic Plan: MAC: Disposition: Standard PACU
--- NOTE | ~2023-11-13 | FL_ITS ---
EXAMINATION: XR FLUOROSCOPY WITH IMAGES CLINICAL INFORMATION: L3, L4, DR L5 medial branch RFA, bilateral. COMPARISON: None available. TECHNIQUE: Fluoroscopy Supervised By: Dr. Ramirez. Fluoroscopy Time: 0.7 min. Cumulative Dose: 24.1 mGy. DAP: 6.29 Gycm2. Images: 3. FINDINGS: Intraoperative fluoroscopy and spot films were performed during a procedure in the OR. Ablation probes are seen at the L3-L4 region, the L4-L5 region and the L5-S1 region. Please correlate with Dr. Ramirez's report for complete details. FL/FL guidance in OR IMPRESSION: Intraoperative fluoroscopy and spot films were obtained. Please see Dr. Ramirez's report for complete details.
[2023-11-13 11:31] VITALS: BMI 38.7
[2023-11-13 11:38] LABS: Glucose, Whole Blood 196 mg/dL (60-115)
[2023-11-13 11:41] VITALS: BP 164/86; PULSE 95; RESP 16; TEMP 36.7; O2SAT 96
[2023-11-13] MEDS: Lactated Ringers 1,000 ML 100 ML IVCONT (11:47)
--- NOTE | 2023-11-13 13:35 | MHC.SHP ---
Pre-Procedural Eval Section A - 24 Hr Update-Section A only Date of Service: 11/13/23 The patient is an INPATIENT: No Changes since office visit: Yes Patient answered all questions The patient has been examined within 24 hours of the surgical procedure. The History & Physical has been completed within 30 days and I have reviewed it.: No Section B - Complete if H&P > 30 days Chief Complaint: Spondylosis without myelopathy or radiculopathy, Details of Present Illness: As above Relevant Family History (Specify if Yes): No Relevant Social History: None Present Medications: see Short Stay [facility] assessment Medical History: No relevant PMH History of Previous Operations: No relevant previous surgery Allergies: Allergies Allergy/AdvReac Type Severity Reaction Status Date / Time amoxicillin [AMOXICILLIN] Allergy Severe ANAPHYLAXIS Verified 11/13/23 11:15 exenatide [From BYETTA] Allergy Severe ANAPHYLAXIS Verified 11/13/23 11:15 insulin detemir Allergy Severe SORE THROAT Verified 11/13/23 11:15 [From LEVEMIR U-100 INSULIN] insulin glargine Allergy Severe YEAST Verified 11/13/23 11:15 [From LANTUS U-100 INSULIN] INFECTION insulin glulisine Allergy Severe UNKNOWN Verified 11/13/23 11:15 [From APIDRA U-100 INSULIN] insulin lispro Allergy Severe HIVES Verified 11/13/23 11:15 [From HUMALOG U-100 INSULIN] insulin regular Allergy Severe MUSCLE PAIN Verified 11/13/23 11:15 [From NOVOLIN R REGULAR U-100 INSULN] lisinopril Allergy Severe Cough Verified 11/13/23 11:15 penicillin V Allergy Severe Rash Verified 11/13/23 11:15 pioglitazone [From ACTOS] Allergy Severe HIVES Verified 11/13/23 11:15 insulin isophane (NPH) Allergy Intermediate YEAST Verified 11/13/23 11:15 [From HUMULIN N NPH U-100 INFECTION INSULIN] duloxetine [From CYMBALTA] Allergy Unknown UNKNOWN Verified 11/13/23 11:15 Review of Systems Sugical H&P ROS: Negative: Cardiovascular, Respiratory, Neurological, Hem-Onc, Allergic/Immunologic, Gastrointestinal, Genitourinary, Musculoskeletal, Integumentary and Eyes/Ears/Nose/Throat and Yes, Specify: Constitution (Morbid obesity), Psychiatric (Depression) and Endocrine (Diabetes) Exam Surgical H&P Exam: Normal: HEENT, Normal: Heart, Normal: Lungs, Normal: Extremities, Normal: Skin and Normal: Neurological and Significant Findings: Abdomen (Enlarged due to fat) Plan Diagnosis/Plan: Unchanged I have reviewed the history and physical and performed a pertinent physical examination on my patient. No changes have occurred unless specified. Time Spent With Patient Time: Total time managing care of this patient today _5___ minutes.
--- NOTE | 2023-11-13 13:37 | PC.NURSE ---
Dr. Adair made aware patient has upper dentures in. Per her, okay for patient to wear into OR. Dentures not removed. Devorah Bradford OR nurse aware.
--- NOTE | 2023-11-13 14:24 | P.BOP_ITS ---
Brief Operative Note Date of Service: 11/13/23 Pre-op diagnosis: Spondylosis lumbar without myelopathy or radiculopathy. Post-op diagnosis: same Procedure: L3-L4 does ramus L5 medial branches bilateral radiofrequency ablation. Implants: None Surgeon: Catarino Ramirez MD Anesthesia: MAC Was an Museum Docent used for this Procedure?: No Estimated blood loss (mL): 2 Condition: stable Disposition: PACU
--- NOTE | 2023-11-13 14:25 | P.OP_ITS ---
Operative Note Operative Note Date of Service: 11/13/23 Narrative: Radiofrequency ablation bilateral L3- L4- DRL5 medial branches. Informed consent was explained to the patient. All questions were explained and answered.? The patient was taken inside of the operating room where she was positioned prone on the operating table.? Time-out was performed delineating patient's name and date of , correct site, side, the nature of the procedure, patient's allergy, preoperative antibio tic if needed.? All operating room staff was participating in OR time-out procedure.? [employer] monitors were applied.? Patient was minimally sedated and I was able to maintain the verbal contact with the patient throughout the procedure. Her lower back was prepped with ChloraPrep and draped with sterile towels.? C- arm was brought over the operating field and sq picture of L4-5 vertebra as and S1 vertebra were delineated on the screen.? Points of interest were delineated as connection of superior articular process of L4 and L5 vertebra bilaterally with corresponding transverse processes as well as connection of the sacral alae bilaterally with superior articular process of S1.? The projection of the point of interest to the skin were injected with the small amount of local anesthetic lidocaine 2% 1-1.5 cc.? And after that 18 gauge 100 mm radiofrequency cannulas were driven to the point of interest in tunnel vision fashion under oblique view After needles gently contacted the bone at the point of interests the stylets were removed from the needles and electrodes were inserted into the needles.? Electrodes were connected to the radiofrequency machine and testing was performed for the patient's and motor function.? There were no pathological motor response indicating stimulation of somatic nerves.? After that electrodes were removed and each needle was injected with small amount of ropivacaine 0.5% 1-1.5 cc mixed with trace amount of Kenalog.? Upon completion of the injections the electrodes were reinserted and energy of 80 degree centigrade for 105 seconds was applied to each needle 1st on the right side and then on the leftt.? Upon completion of the energy application the needles were rotated 180? and energy applied with the same temperature and with the same time.?At the middle of the SECOND energy application the patient started to complain on the pain going down the left leg . The energy application stopped and the procedure was completed with partial Second energy application. The First energy application was performed without any complains and this must be enough to treat this patient's pain. Upon completion of the injections needles were removed and sterile dressings were applied patient was taken outside of the operating room to recovery room which she recovered uneventfully.? She went home without immediate complications.
[2023-11-13 14:31] VITALS: BP 145/76; PULSE 99; RESP 18; TEMP 36.6; O2SAT 95
[2023-11-13 14:36] VITALS: BP 145/80; PULSE 94; RESP 16; O2SAT 95
[2023-11-13 14:41] VITALS: BP 131/79; PULSE 93; RESP 15; O2SAT 96
[2023-11-13 14:46] VITALS: BP 133/88; PULSE 90; RESP 14; O2SAT 96
[2023-11-13 15:00] VITALS: BP 130/65; PULSE 89; RESP 15; TEMP 36.6; O2SAT 97
== END 2023-11-13 15:10 | disposition home or self-care (01) ==
PROVIDERS: PCP Family Medicine; Visit Provider Anesthesiology
PROC: (CPT 64635; principal; 2023-11-13 13:00)
DX: M47.816 Spondylosis without myelopathy or radiculopathy, lumbar region (principal); G89.29 Other chronic pain; M54.50 Low back pain, unspecified; M51.36 Other intervertebral disc degeneration, lumbar region; M54.16 Radiculopathy, lumbar region; I73.9 Peripheral vascular disease, unspecified; I10 Essential (primary) hypertension; E11.42 Type 2 diabetes mellitus with diabetic polyneuropathy; E78.00 Pure hypercholesterolemia, unspecified; G47.33 Obstructive sleep apnea (adult) (pediatric); F32.A Depression, unspecified; E55.9 Vitamin D deficiency, unspecified; F41.9 Anxiety disorder, unspecified; Z88.0 Allergy status to penicillin; Z88.1 Allergy status to other antibiotic agents; Z88.8 Allergy status to other drugs, medicaments and biological substances; Z98.51 Tubal ligation status; F17.210 Nicotine dependence, cigarettes, uncomplicated
CPT/HCPCS: 64635; 64636 ×2; 82947; J2250; J2795; J3010; J3301

== ENCOUNTER → 2023-11-13 10:47 | Outpatient (BNV) | payer OTHER, SELFPAY | PROVIDERS: PCP Family Medicine; Visit Provider Anesthesiology | DX: M47.816 Spondylosis without myelopathy or radiculopathy, lumbar region (principal) | CPT/HCPCS: 64635; 64636 ==

== ENCOUNTER 2023-12-16 12:55 | Outpatient (AMB) | payer OTHER, SELFPAY ==
--- NOTE | 2023-12-16 13:03 | A.OFFVIS_ITS ---
Intake Visit Reasons: OV- Right knee MRI review Intake Note: Estefania is a 57 year old female who presents with Right knee pain. Patient state her pain has been going on since a fall about a year ago and is a 9 on the 1-10 pain scale. She states she is using tramadol with little relief. She denies injury and surgery. The patient has done physical therapy which aggravated her pain. She has also tried Tylenol and anti-inflammatory medicines which gave her minimal relief. She has had injections in the past which gave her no relief. The patient states that her right knee will give out several times per day. Allergies amoxicillin [AMOXICILLIN] Allergy (Severe, Verified 12/16/23 13:05) ANAPHYLAXIS exenatide [From BYETTA] Allergy (Severe, Verified 12/16/23 13:05) ANAPHYLAXIS insulin detemir [From LEVEMIR U-100 INSULIN] Allergy (Severe, Verified 12/16/23 13:05) SORE THROAT insulin glargine [From LANTUS U-100 INSULIN] Allergy (Severe, Verified 12/16/23 13:05) YEAST INFECTION insulin glulisine [From APIDRA U-100 INSULIN] Allergy (Severe, Verified 12/16/23 13:05) UNKNOWN insulin lispro [From HUMALOG U-100 INSULIN] Allergy (Severe, Verified 12/16/23 13:05) HIVES insulin regular [From NOVOLIN R REGULAR U-100 INSULN] Allergy (Severe, Verified 12/16/23 13:05) MUSCLE PAIN lisinopril Allergy (Severe, Verified 12/16/23 13:05) Cough penicillin V Allergy (Severe, Verified 12/16/23 13:05) Rash pioglitazone [From ACTOS] Allergy (Severe, Verified 12/16/23 13:05) HIVES insulin isophane (NPH) [From HUMULIN N NPH U-100 INSULIN] Allergy (Intermediate, Verified 12/16/23 13:05) YEAST INFECTION duloxetine [From CYMBALTA] Allergy (Unknown, Verified 12/16/23 13:05) UNKNOWN Medication List - Last Reconciled 12/16/23 by Westley Buitrago MD aspirin 81 mg PO DAILY atorvastatin 20 mg PO DAILY citalopram (Celexa) 10 mg PO DAILY fluoxetine 40 mg PO DAILY gabapentin 800 mg PO TID glipizide ER 10 mg PO BID hydrochlorothiazide 12.5 mg PO DAILY hydroxyzine HCl 25 mg PO BID PRN insulin aspart U-100 (Novolog FlexPen U-100 Insulin aspart) 80 units subcut TID insulin degludec (Tresiba FlexTouch U-200 insulin) 100 units subcut DAILY ketorolac 0.5% 1 drp ophthalmic (eye) DAILY lidocaine 5% 1 patch topical DAILY PRN lidocaine-prilocaine 2.5-2.5 % 1 appl topical ONCE losartan 100 mg PO DAILY metformin 1,000 mg PO BID naloxone 4 mg/actuation (Narcan) 4 mg intranasal Q2M PRN tramadol 50 mg PO TID PRN 10 days zolpidem 10 mg PO BEDTIME PRN PFSH Medical History Tennis elbow MARIAM (obstructive sleep apnea) Vitamin D deficiency Familial hirsutism Hyperlipidemia Microalbuminuria Hypertension Depression Anxiety Hypercholesterolemia Type 2 diabetes mellitus with peripheral neuropathy Lumbar radiculopathy Right leg pain Surgical History Previous back surgery History of carpal tunnel release Hx of tubal ligation Social History Alcohol intake: never Patient Tobacco Use Status: Former Tobacco user Tobacco use type: Cigarette Years Smoked: 40 Physical Exam Const Other: Well-nourished well-developed very friendly female awake alert and oriented x3 i n no acute distress Extrem Other: Bilateral lower extremity examination shows good capillary refill, no skin lesions noted, normal sensation light touch Right knee examination shows a minimal effusion, minimal crepitus with range of motion, tenderness along her medial and lateral joint lines, positive Sola's test, no instability Results Reviewed Results Reviewed: MRI of the patient's right knee shows a tear of the medial meniscus as well as possible tearing of the lateral meniscus and ?non aggressive appearing lesion of the distal femoral metadiaphysis with imaging features characteristic of a benign enchondroma) Assessment & Plan Assessment & Plan (1) Right knee pain: Code(s): M25.561 - Pain in right knee Category: Medical Plan Ms. Abdelrahman Buck presents with progressively worsening right knee pain due to a medial meniscus tear and possible tearing of her lateral meniscus. I had a lengthy discussion with the patient regarding the treatment options. At this point she has failed continued non operative treatments. The risks and benefits of right knee arthroscopic surgery were discussed at length with the patient. The patient wishes to proceed with surgery. Surgery will most likely involve right knee arthroscopic partial medial meniscectomy and possible arthroscopic partial lateral meniscectomy. The patient does understand that she may not get 100% relief of her symptoms depending on the severity of her degenerative changes. The patient will be scheduled for next available date. She will follow-up as instructed. Feel free to call me at any time should questions regarding her orthopedic management arise. I spent 20 minutes in reviewing the patient's records and imaging studies, seeing the patient and documenting in the medical record. Medications: New tramadol 50 mg PO Q12H PRN 40 tabs 0RF pain Coding Level of Care Code Est Pt Level 3 (73409) Diagnoses Right knee pain M25.561
== END 2023-12-16 13:34 | disposition home or self-care (01) ==
PROVIDERS: PCP Family Medicine; Visit Provider Orthopaedic Surgery
DX: M25.561 Pain in right knee (principal)
CPT/HCPCS: 99214

== ENCOUNTER → 2023-12-16 12:55 | Outpatient (BNVA) | payer OTHER, SELFPAY | PROVIDERS: PCP Family Medicine; Visit Provider Orthopaedic Surgery | DX: M25.561 Pain in right knee (principal) | CPT/HCPCS: 99212 ==

== ENCOUNTER 2023-12-29 13:39 | Outpatient (AMB) | payer OTHER, SELFPAY ==
--- NOTE | 2023-12-29 13:41 | A.OFFVIS_ITS ---
Vital Signs 3 12/29/23 13:51 Height 5 ft 6 in Weight 236 lb 4 oz BMI 38.1 BP 166/77 H Blood Pressure Location Rt brachial Position Sitting Pulse 113 H Pulse Source Pulse Oximeter Pulse Oximetry (%) 97 Oxygen Delivery Method Room Air Intake Visit Reasons: S/p B/l L3-L4-DR L5 Medial Branch RFA 11/13/23 Intake Note: Pain today 10/11 Furnace Filler Required: No Accompanied by: Self / Same As Patient Allergies amoxicillin [AMOXICILLIN] Allergy (Severe, Verified 12/29/23 13:52) ANAPHYLAXIS exenatide [From BYETTA] Allergy (Severe, Verified 12/29/23 13:52) ANAPHYLAXIS insulin detemir [From LEVEMIR U-100 INSULIN] Allergy (Severe, Verified 12/29/23 13:52) SORE THROAT insulin glargine [From LANTUS U-100 INSULIN] Allergy (Severe, Verified 12/29/23 13:52) YEAST INFECTION insulin glulisine [From APIDRA U-100 INSULIN] Allergy (Severe, Verified 12/29/23 13:52) UNKNOWN insulin lispro [From HUMALOG U-100 INSULIN] Allergy (Severe, Verified 12/29/23 13:52) HIVES insulin regular [From NOVOLIN R REGULAR U-100 INSULN] Allergy (Severe, Verified 12/29/23 13:52) MUSCLE PAIN lisinopril Allergy (Severe, Verified 12/29/23 13:52) Cough penicillin V Allergy (Severe, Verified 12/29/23 13:52) Rash pioglitazone [From ACTOS] Allergy (Severe, Verified 12/29/23 13:52) HIVES insulin isophane (NPH) [From HUMULIN N NPH U-100 INSULIN] Allergy (Intermediate, Verified 12/29/23 13:52) YEAST INFECTION duloxetine [From CYMBALTA] Allergy (Unknown, Verified 12/29/23 13:52) UNKNOWN HPI Comments Details: Patient presents today to assess response to Bilateral L3-L4-L5 MB RFA on 11/13/[address] Ramirez. For 75% ongoing pain relief in the lower back since procedure this improvement in her mobility, range of motion and sleep. However she endorses significant pain in the projection of bilateral sacroiliac joint areas with positive provocative testing. Patient reports this pain increases when changing positions, prolonged sitting or walking. She is interested to undergo diagnostic SI joint injections as next steps. Patient is also seeing Orthopedics and is planning to undergo right knee arthroscopy with partial meniscectomy. Denies any recent cough, cold, infection, fever or other significant changes in medical history since last office visit. Past Procedures: 11/13/23: 08/11/23: Diagnostic Bilateral L3-L4 DR L5 MBB-80-85% pain relief for 12 hours 08/10/23: 3rd [employer] application for DPN 06/30/23: Diagnostic Bilateral L3-L4 DR L5 MBB-80% pain relief for 6.5 hours, ongoing 70% pain relief 05/15/23: 2nd [employer] application for DPN 02/12/23: 1st [employer] application for DPN PRIOR: Patient is a 57 year old female with prior history of chronic low back pain, pinched nerve L5, lumbar DDD, MARIAM, uncontrolled DM, PAD, peripheral neuropathy, anxiety, depression and former smoker, presents today for evaluation of low back pain with right sided radiculopathy. Patient was followed in the past by [facility] [place] [facility] for low back pain and received multiple back injections with good results. She attributes her most recent radicular symptoms due to a mechanical fall in October. She accidentally hit a chair with her walker and fell onto her right side. Reports pain in her lower back pain with radiation into her right buttock, lateral hip and down to the lower leg posteriorly and laterally with cramping in her right calf, numbness and burning pain in both feet. Denies any bladder or bowel dysfunction or saddle anesthesia. Patient reports bilateral lower extremity weakness, uses cane with ambulation. Recent lumbar spine MRI is noted below. Patient is not candidate for therapeutic spine injections due to elevated A1C, nor does she want to be evaluated by Neurosurgery as she is not interested in back surgery. Reports history of overdose on oxycodone-acetaminophen due to forgetfulness and taking double dose, which required hospitalization per patient in 2016. She sees mental therapist for anxiety and depression. Reports she quit smoking on 01/14/23 and takes Nicotine lozenges for craving. Reports increased snacking and eating since quitting. 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 Receives daily [employer] services. Current blood sugar per Dexicomp reads 184. Patient reports most recent A1C was over 10. She follows Dr. Medina Muse at [facility]. Reports right great toenail removed in 2019. Patient requests referral to Podiatry provider as she has not seen one in several years. Location Back pain radiates down right leg posteriorly Duration Chronic pain for many years, progressively worsening Characteristics of symptom or complaint Aching, burning, shooting, stabbing, numbness Aggravating or associated factors Walking, sitting, climbing and descending stairs, movements, weather change Relieving factors Tylenol, Percocet, morphine, gabapentin Treatment PT- increased pain, injections- [facility] pain management-good relief PFSH Medical History Tennis elbow MARIAM (obstructive sleep apnea) Vitamin D deficiency Familial hirsutism Hyperlipidemia Microalbuminuria Hypertension Depression Anxiety Hypercholesterolemia Type 2 diabetes mellitus with peripheral neuropathy Lumbar radiculopathy Right leg pain Surgical History Previous back surgery History of carpal tunnel release Hx of tubal ligation Social History Alcohol intake: never Patient Tobacco Use Status: Former Tobacco user Tobacco use type: Cigarette Years Smoked: 40 Review of Systems Const All systems reviewed & are unremarkable except as noted in HPI and below Physical Exam Vital Signs: Last Vital Signs Pulse 113 H 12/29/23 13:51 BP 166/77 H 12/29/23 13:51 Pulse Ox 97 12/29/23 13:51 Oxygen Delivery Method Room Air 12/29/23 13:51 BMI result Body Mass Index 38.1 General: Appears afebrile. Alert and oriented. Mood and affect appropriate. Follows and participates in conversation appropriately. Respiratory effort is unlabored. No cough. Able to transition from sit to stand unassisted. Uses cane with ambulation. Ambulates with bilaterally normal heel strike and toe off. General: Yes no CVA tenderness Back/Spine/Pelvis Other: Limited lumbar spine ROM due to pain. Lumbar extension and forward flexion reproduces mild pain. Strength 5/5 hip flexion bilaterally. Mild TTP right GTB. Mild sensation loss right anterior thigh. DTR intact and symmetric, no clonus. BISHNU test reproduces lateral hip, mild right groin pain and lower back pain, bilateral. +Moderate TTP in projection of SIJ areas. +Stanley?s, Stinchfield, Pelvic Compression and Gaenslen?s test positive bilaterally, right>left. Back: no CVA tenderness Cervical Spine: cervical ROM normal and No Cervical spine tenderness Thoracic/Lumbar Spine: thoracic and lumbar spine normal to inspection, Lasegue's sign negative, straight leg raise negative bilaterally, pain with thoraco-lumbar ROM, paraspinal muscle tenderness, thoraco-lumbar ROM limited, No thoracic spinal tenderness and lumbar spinal tenderness (L3-S1) Pelvis: buttock tenderness (upper buttocks) bilaterally Sacroiliac joints: bilaterally (right>left) tender to palpation Extrem General: Yes capillary refill normal, Yes no clubbing, cyanosis or edema and Yes no calf tenderness Right lower extremity: knee Details: tenderness Location: of the medial joint line and of the lateral joint line and crepitus; no swelling and no unusual warmth Results Reviewed Results Reviewed: CT/CT abdomen pelvis w IV con 11/13/22 OSSEOUS STRUCTURES: Degenerative changes are noted in the spine. Assessment & Plan Assessment & Plan (1) Lumbar degenerative disc disease: Code(s): M51.36 - Other intervertebral disc degeneration, lumbar region Category: Medical (2) Lumbar spondylosis: Code(s): M47.816 - Spondylosis without myelopathy or radiculopathy, lumbar region Category: Medical (3) Right knee pain: Code(s): M25.561 - Pain in right knee Category: Medical (4) Chronic painful diabetic neuropathy: Code(s): E11.40 - Type 2 diabetes mellitus with diabetic neuropathy, unspecified (5) Sacroiliac joint pain: Code(s): M53.3 - Sacrococcygeal disorders, not elsewhere classified Category: Medical Plan Patient is status post bilateral lumbar medial branch blocks with good results with improved functioning, mobility and sleep. Schedule Bilateral diagnostic SIJ injections with local and fluoroscopy. Expectations, risks and benefits were reviewed. Patient is aware she will be contacted to schedule this procedure. Short script provided for tramadol for moderate-severe low back/SIJ and right knee pain. Side effects and precautions discussed with patient. Patient has Narcan at home. All questions were answered and the patient is in agreement of plan. Follow-up after injections and sooner as needed. Medications: Changed 2 From tramadol 50 mg PO Q12H PRN 40 tabs 0RF pain M25.561 - Pain in right knee, M47.816 - Spondylosis without myelopathy or radiculopathy, lumbar region, M51.36 - Other intervertebral disc degeneration, lumbar region To tramadol 50 mg PO Q12H 10 days PRN 20 tabs 0RF pain M25.561 - Pain in right knee, M47.816 - Spondylosis without myelopathy or radiculopathy, lumbar region, M51.36 - Other intervertebral disc degeneration, lumbar region Coding Level of Care Code Est Pt Level 4 (26484) Diagnoses Lumbar degenerative disc disease M51.36 Lumbar spondylosis M47.816 Right knee pain M25.561 Chronic painful diabetic neuropathy E11.40 Sacroiliac joint pain M53.3
[2023-12-29 13:51] VITALS: BP 166/77; PULSE 113; O2SAT 97; BMI 38.1
== END 2023-12-29 14:16 | disposition home or self-care (01) ==
PROVIDERS: PCP Family Medicine; Visit Provider Nurse Practitioner Family
DX: M51.36 Other intervertebral disc degeneration, lumbar region (principal); M47.816 Spondylosis without myelopathy or radiculopathy, lumbar region; M25.561 Pain in right knee; E11.40 Type 2 diabetes mellitus with diabetic neuropathy, unspecified; M53.3 Sacrococcygeal disorders, not elsewhere classified
CPT/HCPCS: 99214

== ENCOUNTER → 2023-12-29 13:39 | Outpatient (BNVA) | payer OTHER, SELFPAY | PROVIDERS: PCP Family Medicine; Visit Provider Nurse Practitioner Family | DX: M51.36 Other intervertebral disc degeneration, lumbar region (principal); M47.816 Spondylosis without myelopathy or radiculopathy, lumbar region; M25.561 Pain in right knee; M53.3 Sacrococcygeal disorders, not elsewhere classified; E11.40 Type 2 diabetes mellitus with diabetic neuropathy, unspecified | CPT/HCPCS: 99212 ==

== ENCOUNTER 2024-02-08 14:01 | Outpatient (REF) | payer OTHER, SELFPAY | END 2024-02-08 14:02 | disposition home or self-care (01) | LOC: HO.XRAY 14:01 | PROVIDERS: PCP Family Medicine; Visit Provider Nurse Practitioner Family | DX: M25.552 Pain in left hip (principal); M54.16 Radiculopathy, lumbar region; M51.360 Other intervertebral disc degeneration, lumbar region with discogenic back pain only; E11.40 Type 2 diabetes mellitus with diabetic neuropathy, unspecified; E11.51 Type 2 diabetes mellitus with diabetic peripheral angiopathy without gangrene; E11.65 Type 2 diabetes mellitus with hyperglycemia; M47.816 Spondylosis without myelopathy or radiculopathy, lumbar region; M62.830 Muscle spasm of back; Z79.899 Other long term (current) drug therapy | CPT/HCPCS: 17999; 72110; 73502; 99212; J7336 ==

== ENCOUNTER 2024-02-08 14:01 | Outpatient (AMB) | payer OTHER, SELFPAY ==
--- NOTE | 2024-02-08 14:05 | A.OFFVIS_ITS ---
Vital Signs 3 02/08/24 14:14 02/08/24 14:20 02/08/24 14:45 02/08/24 15:08 Height 5 ft 6 in Weight 240 lb BMI 38.7 BP 185/92 H 152/70 H 119/60 139/72 Blood Pressure Location Lt brachial Rt brachial Lt brachial Lt brachial Position Sitting Sitting Sitting Sitting Pulse 115 H 108 H 107 H 110 H Pulse Source Pulse Oximeter Pulse Oximeter Pulse Oximeter Pulse Oximetry (%) 98 98 Oxygen Delivery Method Room Air Room Air Comment Manual BP cuff 15 mins after qutenza application 30 mins after qutenz a application Intake Visit Reasons: QUTENZA-DN Allergies amoxicillin [AMOXICILLIN] Allergy (Severe, Verified 02/08/24 14:14) ANAPHYLAXIS exenatide [From BYETTA] Allergy (Severe, Verified 02/08/24 14:14) ANAPHYLAXIS insulin detemir [From LEVEMIR U-100 INSULIN] Allergy (Severe, Verified 02/08/24 14:14) SORE THROAT insulin glargine [From LANTUS U-100 INSULIN] Allergy (Severe, Verified 02/08/24 14:14) YEAST INFECTION insulin glulisine [From APIDRA U-100 INSULIN] Allergy (Severe, Verified 02/08/24 14:14) UNKNOWN insulin lispro [From HUMALOG U-100 INSULIN] Allergy (Severe, Verified 02/08/24 14:14) HIVES insulin regular [From NOVOLIN R REGULAR U-100 INSULN] Allergy (Severe, Verified 02/08/24 14:14) MUSCLE PAIN lisinopril Allergy (Severe, Verified 02/08/24 14:14) Cough penicillin V Allergy (Severe, Verified 02/08/24 14:14) Rash pioglitazone [From ACTOS] Allergy (Severe, Verified 02/08/24 14:14) HIVES insulin isophane (NPH) [From HUMULIN N NPH U-100 INSULIN] Allergy (Intermediate, Verified 02/08/24 14:14) YEAST INFECTION duloxetine [From CYMBALTA] Allergy (Unknown, Verified 02/08/24 14:14) UNKNOWN HPI Comments Details: Patient presents today for 5th application of capsaicin 8% topical patch for diabetic neuropathy in bilateral feet. Patient also presents today with significant left sided low back pain with radiation into her left buttock and left hip and groin. Pain is described as sharp and stabbing and presents with activity, movements, walking and weight bearing. Denies any recent trauma, injury or falls. Patient also reports she is under significant amount of stress as her daughter is in [place] and they expect devastating storm on Thursday. She is tearful and worried about her daughter and grandchildren in [place]. Denies any recent cough, cold, infection, fever, bladder or bowel dysfunction, saddle anesthesa or any other significant changes in medical history since last office visit. Past Procedures: 11/13/23: Bilateral L3-L4-L5 MB RFA-75% ongoing pain relief 08/11/23: Diagnostic Bilateral L3-L4 DR L5 MBB-80-85% pain relief for 12 hours 08/10/23: 3rd Qutenza application for DPN 06/30/23: Diagnostic Bilateral L3-L4 DR L5 MBB-80% pain relief for 6.5 hours, ongoing 70% pain relief 05/15/23: 2nd Qutenza application for DPN 02/12/23: 1st Qutenza application for DPN PRIOR: Patient is a 57 year old female with prior history of chronic low back pain, pinched nerve L5, lumbar DDD, MARIAM, uncontrolled DM, PAD, peripheral neuropathy, anxiety, depression and former smoker, presents today for evaluation of low back pain with right sided radiculopathy. Patient was followed in the past by [facility] for low back pain and received multiple back injections with good results. She attributes her most recent radicular symptoms due to a mechanical fall in October. She accidentally hit a chair with her walker and fell onto her right side. Reports pain in her lower back pain with radiation into her right buttock, lateral hip and down to the lower leg posteriorly and laterally with cramping in her right calf, numbness and burning pain in both feet. Denies any bladder or bowel dysfunction or saddle anesthesia. Patient reports bilateral lower extremity weakness, uses cane with ambulation. Recent lumbar spine MRI is noted below. Patient is not candidate for therapeutic spine injections due to elevated A1C, nor does she want to be evaluated by Neurosurgery as she is not interested in back surgery. Reports history of overdose on oxycodone-acetaminophen due to forgetfulness and taking double dose, which required hospitalization per patient in 2016. She sees mental therapist for anxiety and depression. Reports she quit smoking on 09/13/23 and takes Nicotine lozenges for craving. Reports increased snacking and eating since quitting. 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 Receives daily [employer]POR[employer] DIRECTOR services. Current blood sugar per Dexicomp reads 184. Patient reports most recent A1C was over 10. She follows Dr[address] Medina Muse at [facility]. Reports right great toenail removed in 2019. Patient requests referral to Podiatry provider as she has not seen one in several years. Location Back pain radiates down right leg posteriorly Duration Chronic pain for many years, progressively worsening Characteristics of symptom or complaint Aching, burning, shooting, stabbing, numbness Aggravating or associated factors Walking, sitting, climbing and descending stairs, movements, weather change Relieving factors Tylenol, Percocet, morphine, gabapentin Treatment PT- increased pain, injections- [facility]-good relief PFSH Medical History Tennis elbow MARIAM (obstructive sleep apnea) Vitamin D deficiency Familial hirsutism Hyperlipidemia Microalbuminuria Hypertension Depression Anxiety Hypercholesterolemia Type 2 diabetes mellitus with peripheral neuropathy Lumbar radiculopathy Right leg pain Surgical History Previous back surgery History of carpal tunnel release Hx of tubal ligation Social History Alcohol intake: never Patient Tobacco Use Status: Former Tobacco user Tobacco use type: Cigarette Years Smoked: 40 Review of Systems Const All systems reviewed & are unremarkable except as noted in HPI and below Physical Exam Vital Signs: Last Vital Signs Pulse 115 H 02/08/24 14:14 BP 185/92 H 02/08/24 14:14 Pulse Ox 98 02/08/24 14:14 Oxygen Delivery Method Room Air 02/08/24 14:14 BMI result Body Mass Index 38.7 General: Appears afebrile. Alert and oriented. Mood and affect appropriate. Follows and participates in conversation appropriately. Respiratory effort is unlabored. No cough. Able to transition from sit to stand unassisted. Uses cane with ambulation. Ambulates with bilaterally normal heel strike and toe off. General: Yes no CVA tenderness Back/Spine/Pelvis Other: Limited lumbar spine ROM due to pain. Lumbar extension and forward flexion reproduces moderate pain. Strength 5/5 right and 4/5 left hip flexion bilaterally. Mild TTP right GTB. Mild sensation loss right anterior thigh. DTR diminished bilaterally. BISHNU test reproduces lateral hip, mild left groin pain and lower back pain, bilateral. +Moderate TTP in projection of SIJ areas. +Stanley?s, Stinchfield, Pelvic Compression and Gaenslen?s test positive bilaterally, right>left. Back: no CVA tenderness Cervical Spine: cervical ROM normal and No Cervical spine tenderness Thoracic/Lumbar Spine: thoracic and lumbar spine normal to inspection, Lasegue's sign positive on the left and diffuse, pain with thoraco-lumbar ROM, paraspinal muscle tenderness, thoraco-lumbar ROM limited, No thoracic spinal tenderness and lumbar spinal tenderness (L3-S1) Pelvis: buttock tenderness (upper buttocks) bilaterally Sacroiliac joints: bilaterally (right>left) tender to palpation Extrem Other: There is decreased sensation over the soles of the feet and the toes. No breaks in the skin. No soft tissue swelling, no redness or warmth. +2 pedal pulses bilaterally. Reports numbness, tingling and burning in both feet. Normal capillary refill. No edema, cyanosis, clubbing and no calf tenderness. General: Yes capillary refill normal, Yes no clubbing, cyanosis or edema and Yes no calf tenderness Right lower extremity: knee Details: tenderness Location: of the medial joint line and of the lateral joint line and crepitus; no swelling and no unusual warmth Office Procedures Topical Capsaicin Date(s) of prior application(s): This is 5th application today Date 1:: 02/08/24 Main area of pain on the body: Bilateral foot and toes Laterality: Bilateral Location of left foot pain: Anterior, Posterior, Plantar, Dorsal, Medial, Lateral and Distal Location of right foot pain: Anterior, Posterior, Plantar, Dorsal, Medial, Lateral and Distal Quality of pain: Aching, Stabbing, Nagging, Burning, Numb-like and Tiring Details:: Two patches, 560 cm2 were utilized per each foot. EMLA Cream (lidocaine 2.5% and prilocaine 2.5%) was not applied at home by patient prior to application of the patches. Patient elected to proceed with the procedure without EMLA cream. The patient tolerated the procedure well. Patient?s vitals signs remained stable throughout the procedure. Patient was able to complete the stipulated 30 minutes of the therapeutic application without any discomfort. Office Meds capsaicin-skin cleanser 8 % topical kit Performing Provider: GABRIELA Goel Performing Location: [facility] Administered by: GABRIELA Goel on 02/08/24 14:30 2 Dose Route Admin Location Dispensed Lot Number Expiration Date NDC Technology Assistant 4 ea topical [facility] 4 ea [id number] 11/01/25 39127-339-37 [employer] Results Reviewed Results Reviewed: CT/CT abdomen pelvis w IV con 11/13/22 OSSEOUS STRUCTURES: Degenerative changes are noted in the spine. Assessment & Plan Assessment & Plan (1) Lumbar degenerative disc disease: Code(s): M51.36 - Other intervertebral disc degeneration, lumbar region Category: Medical (2) Lumbar radiculopathy: Code(s): M54.16 - Radiculopathy, lumbar region Category: Medical (3) Lumbar spondylosis: Code(s): M47.816 - Spondylosis without myelopathy or radiculopathy, lumbar region Category: Medical (4) Muscle spasm of back: Code(s): M62.830 - Muscle spasm of back Category: Medical (5) Chronic painful diabetic neuropathy: Code(s): E11.40 - Type 2 diabetes mellitus with diabetic neuropathy, unspecified Category: Medical (6) Left hip pain: Code(s): M25.552 - Pain in left hip Category: Medical (7) Chronic painful diabetic neuropathy: Code(s): E11.40 - Type 2 diabetes mellitus with diabetic neuropathy, unspecified Plan Patient is status post 5th application of topical capsaicin 8% for chronic diabetic peripheral neuropathy in bilateral feet. Patient tolerated the procedure without significant discomfort without application of EMLA cream prior to the procedure and elected to proceed with Qutenza. She was discharged home in stable condition with discharge instructions. Lumbar spine and left hip with pelvic view imaging to assess degree of degenerative changes, any subluxation, listhesis, compression fractures or pars defects. Short script provided for oxycodone and tizanidine for acute on chronic low back pain with radicular symptoms and left hip pain. Side effects and precautions were discussed with patient. Greater than 40 minutes were spent in therapeutic application and in coordination of the care. Orders: Orders 2 AMB Capsaicin Patch - Practice Supplied Today E11.40 - Type 2 diabetes mellitus with diabetic neuropathy, unspecified XR hip LT w PEL1V Today M25.552 - Pain in left hip XR lumbar spine 4V min Today M51.36 - Other intervertebral disc degeneration, lumbar region, M54.16 - Radiculopathy, lumbar region Medications: New 2 oxycodone Partial Fill upon patient request. 5 mg PO BID 7 days PRN 14 tabs 0RF pain M47.816 - Spondylosis without myelopathy or radiculopathy, lumbar region, M51.36 - Other intervertebral disc degeneration, lumbar region, M54.16 - Radiculopathy, lumbar region tizanidine 2 mg PO Q8H 30 days PRN 90 tabs 0RF muscle spasm M62.830 - Muscle spasm of back Discontinued 2 tramadol Discontinued Reason: Patient Completed Course 50 mg PO Q12H 10 days PRN 20 tabs 0RF pain M25.561 - Pain in right knee, M47.816 - Spondylosis without myelopathy or radiculopathy, lumbar region, M51.36 - Other intervertebral disc degeneration, lumbar region Coding Level of Care Code Est Pt Level 4 (12213) Complex EM visit Add On G2211 Diagnoses Lumbar degenerative disc disease M51.36 Lumbar radiculopathy M54.16 Lumbar spondylosis M47.816 Muscle spasm of back M62.830 Chronic painful diabetic neuropathy E11.40 Left hip pain M25.552
[2024-02-08 14:14] VITALS: BP 185/92; PULSE 115; O2SAT 98; BMI 38.7
[2024-02-08 14:20] VITALS: BP 152/70; PULSE 108
[2024-02-08 14:45] VITALS: BP 119/60; PULSE 107; O2SAT 98
[2024-02-08 15:08] VITALS: BP 139/72; PULSE 110
== END 2024-02-08 15:16 | disposition home or self-care (01) ==
PROVIDERS: PCP Family Medicine; Visit Provider Nurse Practitioner Family
DX: M54.16 Radiculopathy, lumbar region (principal); M47.816 Spondylosis without myelopathy or radiculopathy, lumbar region; M62.830 Muscle spasm of back; E11.40 Type 2 diabetes mellitus with diabetic neuropathy, unspecified; M25.552 Pain in left hip
CPT/HCPCS: 17999; 99214

== ENCOUNTER 2024-03-01 13:19 | Outpatient (AMB) | payer OTHER, SELFPAY ==
--- NOTE | 2024-03-01 13:23 | A.OFFVIS_ITS ---
Vital Signs 03/01/24 13:25 Height 5 ft 6.5 in Weight 243 lb BMI 38.6 Intake Visit Reasons: OV- Right knee, discuss surgery Intake Note: Estefania is a 57 year old female who presents with Right knee pain and giving way. Patient states her pain has been going on since a fall about a year ago and is a 9 on the 1-10 pain scale. She states she is using tramadol with little relief. She denies injury and surgery. The patient has done physical therapy which aggravated her pain. She has also tried Tylenol and anti-inflammatory medicines which gave her minimal relief. She has had injections in the past which gave her no relief. The patient states that her right knee will give out several times per day. The patient does walk with a cane because of her feelings of instability. Allergies amoxicillin [AMOXICILLIN] Allergy (Severe, Verified 03/01/24 13:28) ANAPHYLAXIS exenatide [From BYETTA] Allergy (Severe, Verified 03/01/24 13:28) ANAPHYLAXIS insulin detemir [From LEVEMIR U-100 INSULIN] Allergy (Severe, Verified 03/01/24 13:28) SORE THROAT insulin glargine [From LANTUS U-100 INSULIN] Allergy (Severe, Verified 03/01/24 13:28) YEAST INFECTION insulin glulisine [From APIDRA U-100 INSULIN] Allergy (Severe, Verified 03/01/24 13:28) UNKNOWN insulin lispro [From HUMALOG U-100 INSULIN] Allergy (Severe, Verified 03/01/24 13:28) HIVES insulin regular [From NOVOLIN R REGULAR U-100 INSULN] Allergy (Severe, Verified 03/01/24 13:28) MUSCLE PAIN lisinopril Allergy (Severe, Verified 03/01/24 13:28) Cough penicillin V Allergy (Severe, Verified 03/01/24 13:28) Rash pioglitazone [From ACTOS] Allergy (Severe, Verified 03/01/24 13:28) HIVES insulin isophane (NPH) [From HUMULIN N NPH U-100 INSULIN] Allergy (Intermediate, Verified 03/01/24 13:28) YEAST INFECTION duloxetine [From CYMBALTA] Allergy (Unknown, Verified 03/01/24 13:28) UNKNOWN tizanidine Adverse Reaction (Severe, Verified 03/01/24 13:28) Anxiety [facility] Medical History Tennis elbow MARIAM (obstructive sleep apnea) Vitamin D deficiency Familial hirsutism Hyperlipidemia Microalbuminuria Hypertension Depression Anxiety Hypercholesterolemia Type 2 diabetes mellitus with peripheral neuropathy Lumbar radiculopathy Right leg pain Surgical History Previous back surgery History of carpal tunnel release Hx of tubal ligation Social History Alcohol intake: never Patient Tobacco Use Status: Former Tobacco user Tobacco use type: Cigarette Years Smoked: 40 Physical Exam Vital Signs: BMI result Body Mass Index 38.6 Const Other: Well-nourished well-developed very friendly female awake alert and oriented x3 in no acute distress Extrem Other: Bilateral lower extremity examination shows good capillary refill, no skin lesions noted, normal sensation light touch Right knee examination shows a minimal effusion, minimal crepitus with range of motion, tenderness along her medial joint line, positive Sola's test, no instability Results Reviewed Results Reviewed: Standing full weight-bearing x-rays of the patient's right knee show mild diffuse joint space narrowing, no acute bony abnormalities MRI of the patient's right knee shows mild diffuse degenerative changes, a tear of the medial meniscus, possible tearing of the lateral meniscus Assessment & Plan Assessment & Plan (1) Tear of medial meniscus of right knee: Code(s): S83.241A - Other tear of medial meniscus, current injury, right knee, initial encounter Category: Medical Plan Ms. Abdelrahman Buck presents with progressively worsening right knee pain and mechanical symptoms due to tearing of her medial meniscus as well as possible tearing of her lateral meniscus. I had a lengthy discussion with the patient regarding the treatment options. At this point she has failed continued non operative treatments. The risks and benefits of right knee arthroscopic surgery were discussed at length with the patient. The patient wishes to proceed with surgery. Surgery will most likely involve right knee diagnostic arthroscopy with arthroscopic partial medial meniscectomy and possible partial lateral meniscectomy. The patient will be scheduled for next available date. She will follow-up as instructed. Feel free to call me at any time should questions regarding her orthopedic management arise. I spent 20 minutes in reviewing the patient's records and imaging studies, seeing the patient and documenting in the medical record. Coding Level of Care Code Est Pt Level 3 (99108) Complex EM visit Add On G2211 Diagnoses Tear of medial meniscus of right knee S83.241A
[2024-03-01 13:25] VITALS: BMI 38.6
== END 2024-03-01 13:39 | disposition home or self-care (01) ==
LOC: HO.HOS 13:20
PROVIDERS: PCP Family Medicine; Visit Provider Orthopaedic Surgery
DX: S83.241A Other tear of medial meniscus, current injury, right knee, initial encounter (principal)
CPT/HCPCS: 99213; G2211

== ENCOUNTER → 2024-03-01 13:19 | Outpatient (BNVA) | payer OTHER, SELFPAY | PROVIDERS: PCP Family Medicine; Visit Provider Orthopaedic Surgery | DX: S83.241A Other tear of medial meniscus, current injury, right knee, initial encounter (principal); X58.XXXA Exposure to other specified factors, initial encounter; Y93.9 Activity, unspecified; Y92.9 Unspecified place or not applicable; Y99.9 Unspecified external cause status | CPT/HCPCS: 99212 ==

== ENCOUNTER 2024-03-08 06:18 | Outpatient (REF) | payer OTHER, SELFPAY | END 2024-03-08 06:19 | disposition home or self-care (01) | LOC: CF 06:18 | PROVIDERS: Visit Provider Anesthesiology | DX: M53.3 Sacrococcygeal disorders, not elsewhere classified (principal) | CPT/HCPCS: 27096; J2003; J2795; Q9967 ==

== ENCOUNTER 2024-03-08 14:02 | Outpatient (AMB) | payer OTHER, SELFPAY ==
--- NOTE | 2024-03-08 14:05 | MHC.OFFVIS ---
Vital Signs 03/08/24 14:44 03/08/24 14:45 Height 5 ft 6.5 in 5 ft 6.5 in Weight 243 lb 243 lb BMI 38.6 38.6 BP 148/70 H 139/62 Blood Pressure Location Lt brachial Lt brachial Position Sitting Sitting Respiration 18 18 Pulse 102 H 102 H Pulse Source Pulse Oximeter Pulse Oximeter Pulse Oximetry (%) 97 99 Oxygen Delivery Method Room Air Room Air Comment pre-op post-op Intake Visit Reasons: BILATERAL DIAGNOSTIC SIJ INJECTIONS Allergies amoxicillin [AMOXICILLIN] Allergy (Severe, Verified 03/08/24 14:46) ANAPHYLAXIS exenatide [From BYETTA] Allergy (Severe, Verified 03/08/24 14:46) ANAPHYLAXIS insulin detemir [From LEVEMIR U-100 INSULIN] Allergy (Severe, Verified 03/08/24 14:46) SORE THROAT insulin glargine [From LANTUS U-100 INSULIN] Allergy (Severe, Verified 03/08/24 14:46) YEAST INFECTION insulin glulisine [From APIDRA U-100 INSULIN] Allergy (Severe, Verified 03/08/24 14:46) UNKNOWN insulin lispro [From HUMALOG U-100 INSULIN] Allergy (Severe, Verified 03/08/24 14:46) HIVES insulin regular [From NOVOLIN R REGULAR U-100 INSULN] Allergy (Severe, Verified 03/08/24 14:46) MUSCLE PAIN lisinopril Allergy (Severe, Verified 03/08/24 14:46) Cough penicillin V Allergy (Severe, Verified 03/08/24 14:46) Rash pioglitazone [From ACTOS] Allergy (Severe, Verified 03/08/24 14:46) HIVES insulin isophane (NPH) [From HUMULIN N NPH U-100 INSULIN] Allergy (Intermediate, Verified 03/08/24 14:46) YEAST INFECTION duloxetine [From CYMBALTA] Allergy (Unknown, Verified 03/08/24 14:46) UNKNOWN tizanidine Adverse Reaction (Severe, Verified 03/08/24 14:46) Anxiety [facility] Medical History Tennis elbow MARIAM (obstructive sleep apnea) Vitamin D deficiency Familial hirsutism Hyperlipidemia Microalbuminuria Hypertension Depression Anxiety Hypercholesterolemia Type 2 diabetes mellitus with peripheral neuropathy Lumbar radiculopathy Right leg pain Surgical History Previous back surgery History of carpal tunnel release Hx of tubal ligation Social History Alcohol intake: never Patient Tobacco Use Status: Former Tobacco user Tobacco use type: Cigarette Years Smoked: 40 Physical Exam Vital Signs: Last Vital Signs Pulse 102 H 03/08/24 14:45 Resp 18 03/08/24 14:45 BP 139/62 03/08/24 14:45 Pulse Ox 99 03/08/24 14:45 Oxygen Delivery Method Room Air 03/08/24 14:45 BMI result Body Mass Index 38.6 Assessment & Plan Assessment & Plan (1) Sacroiliac joint pain: Code(s): M53.3 - Sacrococcygeal disorders, not elsewhere classified Category: Medical Plan Bilateral diagnostic sacroiliac joint injection Informed consent was explained thoroughly to the patient.? All questions about benefits and risks for the procedure were answered. Patient came to the operating room and was positioned prone on the operating table with the pillow under the abdomen. The lower back and buttocks of the patient were prepped with ChloraPrep prepped and draped with sterile utility towels.? Sterilely draped C-arm was brought over the operating field and sq picture of patient's pelvis was demonstrated on the screen.? For the right joint tilting C-arm contralateral to the site of the joint the most posterior portion of the joints was superimposed with anterior silhouette of the joint.? Skin was injected in the projection of the joint slightly medial to the location of the joint with 25 gauge 1/2 inch needle using local lidocaine 2% . After that 22 gauge 3 and 1/2 inch needle was driven to the right joint in tunnel vision fashion.? When needle entered the joint capsule injection of the contrast was performed demonstrating intra-articular and minimally periarticular spread of the contrast.? After that 4 cc. of ropivacaine 0.5% was injected in the joint. After that procedure was repeated on the left side in mirroring fashion. Same dose of ropivacaine was injected into the joint. Upon completion of the injections the needle was removed and Band-Aid was applied.? Upon completion of the injection patient was taken outside of the operating room to the recovery room where recovered uneventfully. Orders: Orders FL guidance in treatment room Today M53.3 - Sacrococcygeal disorders, not elsewhere classified Coding Level of Care Code Procedure Only Diagnoses Sacroiliac joint pain M53.3
[2024-03-08 14:44] VITALS: BP 148/70; PULSE 102; RESP 18; O2SAT 97; BMI 38.6
[2024-03-08 14:45] VITALS: BP 139/62; PULSE 102; RESP 18; O2SAT 99; BMI 38.6
== END 2024-03-08 14:48 | disposition home or self-care (01) ==
LOC: HO.PMCPRC 14:03
PROVIDERS: PCP Family Medicine; Visit Provider Anesthesiology
DX: M53.3 Sacrococcygeal disorders, not elsewhere classified (principal)
CPT/HCPCS: 27096

== ENCOUNTER 2024-03-15 13:43 | Outpatient (AMB) | payer OTHER, SELFPAY ==
--- NOTE | 2024-03-15 13:44 | A.OFFVIS_ITS ---
Vital Signs 3 03/15/24 13:52 Height 5 ft 6.5 in Weight 240 lb BMI 38.2 BP 188/81 H Blood Pressure Location Rt brachial Position Sitting Pulse 99 Pulse Source Pulse Oximeter Pulse Oximetry (%) 97 Oxygen Delivery Method Room Air Intake Visit Reasons: BILATERAL DIAGNOSTIC SIJ INJECTIONS Intake Note: Pain today 0/10 Golf Ball Inspector Required: No Accompanied by: Self / Same As Patient Allergies amoxicillin [AMOXICILLIN] Allergy (Severe, Verified 03/15/24 13:54) ANAPHYLAXIS exenatide [From BYETTA] Allergy (Severe, Verified 03/15/24 13:54) ANAPHYLAXIS insulin detemir [From LEVEMIR U-100 INSULIN] Allergy (Severe, Verified 03/15/24 13:54) SORE THROAT insulin glargine [From LANTUS U-100 INSULIN] Allergy (Severe, Verified 03/15/24 13:54) YEAST INFECTION insulin glulisine [From APIDRA U-100 INSULIN] Allergy (Severe, Verified 03/15/24 13:54) UNKNOWN insulin lispro [From HUMALOG U-100 INSULIN] Allergy (Severe, Verified 03/15/24 13:54) HIVES insulin regular [From NOVOLIN R REGULAR U-100 INSULN] Allergy (Severe, Verified 03/15/24 13:54) MUSCLE PAIN lisinopril Allergy (Severe, Verified 03/15/24 13:54) Cough penicillin V Allergy (Severe, Verified 03/15/24 13:54) Rash pioglitazone [From ACTOS] Allergy (Severe, Verified 03/15/24 13:54) HIVES insulin isophane (NPH) [From HUMULIN N NPH U-100 INSULIN] Allergy (Intermediate, Verified 03/15/24 13:54) YEAST INFECTION duloxetine [From CYMBALTA] Allergy (Unknown, Verified 03/15/24 13:54) UNKNOWN tizanidine Adverse Reaction (Severe, Verified 03/15/24 13:54) Anxiety HPI Comments Details: Patient presents today to assess response to Bilateral Diagnostic SIJ injections on 03/08/[address] Ramirez. Patient reports 100% ongoing pain relief since procedure with significant improvement in her mobility, changing positions, prolonged sitting or standing. She denies any low back, hip or buttock pain today. Her A1C remains elevated above 11 last week per patient. Her Dexicom shows 279 and she last ate about 1 hour ago. Patient reports allergies to most forms of insulin. She interested in Weight Management for surgical evaluation. Patient also reports bilateral hand pain with weakness, numbness and tingling and stiffness in her 2-3 rd fingers bilaterally. She reports prevous CTS release surgery about 4-5 years ago at [facility] and requests Hand Specialist referral at [facility]. Patient also suffers from right knee pain due to degenerative changes and a tear of the medial meniscus. She is being scheduled for right knee diagnostic arthroscopy with arthroscopic partial medial meniscectomy and possible partial lateral meniscectomy with Dr. Buitrago. Hand and right knee pain are rated at 8- 9/10 with daily activities, walking or climbing stairs. Denies any recent cough, cold, infection, fever, bladder or bowel dysfunction, saddle anesthesa or any other significant changes in medical history since last office visit. Past Procedures: 03/08/24: Bilateral Diagnostic SIJ injections-100% ongoing pain relief >1 week 11/13/23: Bilateral L3-L4-L5 MB RFA-75% ongoing pain relief 08/11/23: Diagnostic Bilateral L3-L4 DR L5 MBB-80-85% pain relief for 12 hours 08/10/23: 3rd [employer] application for DPN 06/30/23: Diagnostic Bilateral L3-L4 DR L5 MBB-80% pain relief for 6.5 hours, ongoing 70% pain relief 05/15/23: 2nd [employer] application for DPN 02/12/23: 1st [employer] application for DPN PRIOR: Patient is a 57 year old female with prior history of chronic low back pain, pinched nerve L5, lumbar DDD, MARIAM, uncontrolled DM, PAD, peripheral neuropathy, anxiety, depression and former smoker, presents today for evaluation of low back pain with right sided radiculopathy. Patient was followed in the past by [facility] for low back pain and received multiple back injections with good results. She attributes her most recent radicular symptoms due to a mechanical fall in October. She accidentally hit a chair with her walker and fell onto her right side. Reports pain in her lower back pain with radiation into her right buttock, lateral hip and down to the lower leg posteriorly and laterally with cramping in her right calf, numbness and burning pain in both feet. Denies any bladder or bowel dysfunction or saddle anesthesia. Patient reports bilateral lower extremity weakness, uses cane with ambulation. Recent lumbar spine MRI is noted below. Patient is not candidate for therapeutic spine injections due to elevated A1C, nor does she want to be evaluated by Neurosurgery as she is not interested in back surgery. Reports history of overdose on oxycodone-acetaminophen due to forgetfulness and taking double dose, which required hospitalization per patient in 2016. She sees mental therapist for anxiety and depression. Reports she quit smoking on 01/14/23 and takes Nicotine lozenges for craving. Reports increased snacking and eating since quitting. 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 Receives daily [employer]CH[employer]PLICATION[employer] services. Current blood sugar per Dexicomp reads 184. Patient reports most recent A1C was over 10. [address] follows [address] Medina Muse at [facility]. Reports right great toenail removed in 2019. Patient requests referral to Podiatry provider as she has not seen one in several years. Location Back pain radiates down right leg posteriorly Duration Chronic pain for many years, progressively worsening Characteristics of symptom or complaint Aching, burning, shooting, stabbing, numbness Aggravating or associated factors Walking, sitting, climbing and descending stairs, movements, weather change Relieving factors Tylenol, Percocet, morphine, gabapentin Treatment PT- increased pain, injections- [facility] pain management-good relief PFSH Medical History (Updated 03/15/24 @ 14:15 by GABRIELA Goel) Tennis elbow MARIAM (obstructive sleep apnea) Vitamin D deficiency Familial hirsutism Hyperlipidemia Microalbuminuria Hypertension Depression Anxiety Hypercholesterolemia Type 2 diabetes mellitus with peripheral neuropathy Lumbar radiculopathy Right leg pain Surgical History (Updated 03/15/24 @ 14:13 by GABRIELA Goel) Previous back surgery History of carpal tunnel release Hx of tubal ligation Social History Alcohol intake: never Patient Tobacco Use Status: Former Tobacco user Tobacco use type: Cigarette Years Smoked: 40 Review of Systems Const All systems reviewed & are unremarkable except as noted in HPI and below Physical Exam Vital Signs: Last Vital Signs Pulse 99 03/15/24 13:52 BP 188/81 H 03/15/24 13:52 Pulse Ox 97 03/15/24 13:52 Oxygen Delivery Method Room Air 03/15/24 13:52 BMI result Body Mass Index 38.2 General: Appears afebrile. Alert and oriented. Mood and affect appropriate. Follows and participates in conversation appropriately. Respiratory effort is unlabored. No cough. Able to transition from sit to stand unassisted. Uses cane with ambulation. Ambulates with bilaterally normal heel strike and toe off. Back/Spine/Pelvis Cervical Spine: cervical ROM normal and No Cervical spine tenderness Thoracic/Lumbar Spine: thoracic and lumbar spine normal to inspection, Lasegue's sign negative, straight leg raise negative bilaterally, pain with thoraco-lumbar ROM, paraspinal muscle tenderness, thoraco-lumbar ROM limited, No thoracic spinal tenderness and lumbar spinal tenderness (L3-S1) Pelvis: no buttock tenderness Sacroiliac joints: bilaterally (right>left) tender to palpation (mild) Extrem Other: Bilateral hand: normal to inspection, limited ROM 2-3rd fingers bilaterally. +Tinels and +Phalen's tests bilaterally. Reports gradually worsening pain throughout the day, worse at night. Reports numbness, tingling, burning and paresthesias both hands. Well healed incision from previous CTS surgery. General: Yes capillary refill normal, Yes no clubbing, cyanosis or edema and Yes no calf tenderness Right lower extremity: knee (Limited ROM due to pain.) Details: tenderness Location: of the medial joint line and of the lateral joint line and crepitus; no ecchymosis and no unusual warmth Results Reviewed Results Reviewed: CT/CT abdomen pelvis w IV con 11/13/22 OSSEOUS STRUCTURES: Degenerative changes are noted in the spine. Assessment & Plan Assessment & Plan (1) History of carpal tunnel release: Comment: bilateral Code(s): Z98.890 - Other specified postprocedural states Category: Surgical (2) Carpal tunnel syndrome on both sides: Code(s): G56.03 - Carpal tunnel syndrome, bilateral upper limbs Category: Medical (3) Lumbar spondylosis: Code(s): M47.816 - Spondylosis without myelopathy or radiculopathy, lumbar region Category: Medical (4) Uncontrolled diabetes mellitus with hyperglycemia: Code(s): E11.65 - Type 2 diabetes mellitus with hyperglycemia Category: Medical (5) Obesity (BMI 35.0-39.9 without comorbidity): Code(s): E66.9 - Obesity, unspecified Category: Medical (6) Carpal tunnel syndrome on both sides: Code(s): G56.03 - Carpal tunnel syndrome, bilateral upper limbs Category: Medical (7) Lumbar degenerative disc disease: Code(s): M51.36 - Other intervertebral disc degeneration, lumbar region Category: Medical (8) Sacroiliac joint pain: Code(s): M53.3 - Sacrococcygeal disorders, not elsewhere classified Category: Medical (9) Right knee pain: Code(s): M25.561 - Pain in right knee Category: Medical (10) Tear of medial meniscus of right knee: Code(s): S83.241A - Other tear of medial meniscus, current injury, right knee, initial encounter Category: Medical Plan Patient is status post bilateral diagnostic SIJ injections with good results and ongoing pain relief in lower back, buttocks and lateral hip areas. Due to elevated A1C level>11 per patient, she is not candidate for therapeutic injections or implantable procedures. We discussed RFA procedure. Patient would like to hold off any further interventions for SIJ until her pain returns to baseline. Short script provided for oxycodone for moderate-severe right knee pain and hand pain. Side effects and precautions discussed with patient. Patient has Narcan at home. Referrals sent to Weight Management and Hand Specialist per patient's request. All questions were answered and the patient is in agreement of plan. Follow-up as needed. Orders: Referrals 2 Hand Surgery Referral G56.03 - Carpal tunnel syndrome, bilateral upper limbs, Z98.890 - Other specified postprocedural states Medical Weight Management Referral E11.65 - Type 2 diabetes mellitus with hyperglycemia, E66.9 - Obesity, unspecified, M47.816 - Spondylosis without myelopathy or radiculopathy, lumbar region Medications: New 2 oxycodone Partial Fill upon patient request. 5 mg PO Q8H 15 days PRN 30 tabs 0RF pain (scale score 7-10) G56.03 - Carpal tunnel syndrome, bilateral upper limbs, M47.816 - Spondylosis without myelopathy or radiculopathy, lumbar region, M51.36 - Other intervertebral disc degeneration, lumbar region, M53.3 - Sacrococcygeal disorders, not elsewhere classified Coding Level of Care Code Est Pt Level 4 (83094) Complex EM visit Add On G2211 Diagnoses History of carpal tunnel release Z98.890 Carpal tunnel syndrome on both sides G56.03 Lumbar spondylosis M47.816 Uncontrolled diabetes mellitus with hyperglycemia E11.65 Obesity (BMI 35.0-39.9 without comorbidity) E66.9 Lumbar degenerative disc disease M51.36 Sacroiliac joint pain M53.3 Right knee pain M25.561 Tear of medial meniscus of right knee S83.241A
[2024-03-15 13:52] VITALS: BP 188/81; PULSE 99; O2SAT 97; BMI 38.2
== END 2024-03-15 14:27 | disposition home or self-care (01) ==
PROVIDERS: PCP Family Medicine; Visit Provider Nurse Practitioner Family
DX: Z98.890 Other specified postprocedural states (principal); G56.03 Carpal tunnel syndrome, bilateral upper limbs; M47.816 Spondylosis without myelopathy or radiculopathy, lumbar region; E11.65 Type 2 diabetes mellitus with hyperglycemia; E66.9 Obesity, unspecified; M51.369 Other intervertebral disc degeneration, lumbar region without mention of lumbar back pain or lower extremity pain; M53.3 Sacrococcygeal disorders, not elsewhere classified; M25.561 Pain in right knee; S83.241A Other tear of medial meniscus, current injury, right knee, initial encounter
CPT/HCPCS: 99214; G2211

== ENCOUNTER → 2024-03-15 13:43 | Outpatient (BNVA) | payer OTHER, SELFPAY | PROVIDERS: PCP Family Medicine; Visit Provider Nurse Practitioner Family | DX: M51.360 Other intervertebral disc degeneration, lumbar region with discogenic back pain only (principal); M53.3 Sacrococcygeal disorders, not elsewhere classified; M25.561 Pain in right knee; S83.241A Other tear of medial meniscus, current injury, right knee, initial encounter; E11.65 Type 2 diabetes mellitus with hyperglycemia; E66.9 Obesity, unspecified; G56.03 Carpal tunnel syndrome, bilateral upper limbs; Z98.890 Other specified postprocedural states; Z68.38 Body mass index [BMI] 38.0-38.9, adult | CPT/HCPCS: 99212 ==

== ENCOUNTER 2024-04-06 08:59 | Outpatient (REF) | payer OTHER, SELFPAY ==
--- OUTSIDE RECORDS SUMMARY | 2024-04-12 16:41 | XMS_ITS | Data Portability ---
Author Organization [facility], Main Office Address [address] [place] [address] Care Team Providers Care Tax Services Manager Name Role Phone LIYAH MARTINES Urogynecologist VINCENT MUSE Rehabilitation Services Manager [facility] Pain Management JEANNIE METZ Primary Care Provider ROXANN SOSA Barrel Marker Assessment No assessment recorded. Plan of Treatment Reminders Order Date Submit Date Provider Last Modified By Organization Details Last Modified Time Details Appointments None recorded. Lab microalbum in, urine 2017 018 [facility], [address], [address], [place], [address], 8 14:18:56 hemoglobin A1C, fingerstic k 2017 018 In-Office Order, Internal Use Only DO Not Attach Compendium DO Not Attach Compendium, Do Not Delete/merge, [id number] 8 09:51:21 glucose, fingerstic k, blood 2017 018 In-Office Order, Internal Use Only DO Not Attach Compendium DO Not Attach Compendium, Do Not Delete/merge, [id number] 8 09:51:21 lipid panel, serum 2017 018 [facility], [address], [address], [place], [address], 8 14:47:06 CMP, serum or plasma 2017 018 [facility], [address], [address], [place], [address], 8 14:47:05 Referral urogynecol ogist referral - this pt is at no increased risk for upcoming bladder-tsering tox procedurer on Mar 02, 2017. There are no contraindi cations- Pt feels well and will continue current tx. 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 PT. is on Lyrica. Needs diabetic foot care. 2017 018 [email or web address] Not available 8 10:19:37 diabetic ophthalmol ogy referral - Diabetic eye exam. 2017 018 [email or web address] Not available 9 10:35:[address]/dietiti an referral 2017 018 [email or web address] Not available 8 10:19:37 Procedures None recorded. Surgeries None recorded. Imaging XR, lumbosacra l spine - low back pain with radiculopa thy 2016 017 [facility], [address] [place], [address], 7 15:26:52 XR, sacroiliac joint(s) - left low back pain with radiculopa thy 2016 017 [facility], [address] [place], [address], 7 15:26:53 MAMMO, screening, bilateral - Perform Diagnostic Mammogram and Breast Ultrasound if needed / Perform Ultrasound Guided Aspiration and/or Breast Biopsy if warranted 2017 018 [facility], [address] [place], [address], 8 11:28:39 Medication Orders meloxicam 15 mg tablet 2016 017 [facility]1130, [address] [place], [address], 8 09:59:25 methocarba mol 750 mg tablet 2016 017 [facility], [address] [place], [address], 7 09:36:04 acetaminop hen 300 mg-codeine 30 mg tablet 2016 017 [facility], [phone] [place], [address], 8 09:58:39 Temovate 0.05 % topical ointment 2017 [address] [facility] #[id number], [address] [place], [address], 8 13:42:34 Chantix Starting Month Box 0.5 mg (11)-1 mg (42) tablets in dose pack 2017 018 [id number], [address] [place], [address], 8 10:04:23 Chantix Continuing Month Box 1 mg tablet 2017 [address] [facility] #[id number], [address] [place], [address], 8 10:04:21 Patient TargetsNo targets recorded. Patient Instructions Encounter Date Encounter Id Patient Instructions Last Modified By Organization Details Last Modified Time 09/30/2016 [id number] Urinary Tract Infection (UTI) in Women: Care Instructions Not available 09/30/2016 14:09:22 Call or return for worsening or concerns [email or web address] Not available 09/30/2016 10:28:38 At [facility] follow up visit, all current and discharge medications (OTC, herbal therapies, supplements) reviewed and reconciled with patient and or caregiver, including potential side effects, drug interactions, instructions, and the consequences of not taking medication. Reviewed potential barriers to medication adherence, such as side effects from medication or cost of medication. I have reviewed the note and agree with the assessment and plan of care. [email or web address] Not available 09/30/2016 17:31:22 01/06/2017 [id number] acute low back pain: exercises Not available 01/06/2017 15:45:22 getting back to normal after low back pain: care instructions Not available 01/06/2017 15:45:22 Call or return for worsening or concerns [email or web address] Not available 01/06/2017 15:36:08 I have reviewed the note and agree with the assessment and plan of care. [email or web address] Not available 01/06/2017 16:37:20 08/03/2017 [id number] preventing falls: care instructions [email or web address] Not available 08/03/2017 10:24:23 Cervical Cancer Screening mdalessandro Not available 08/03/2017 10:24:23 11/16/2017 [id number] dash diet: care instructions Not available 11/16/2017 09:55:08 high cholesterol: care instructions Not available 11/16/2017 09:51:21 heart-healthy diet: care instructions Not available 11/16/2017 09:51:21 starting a weight loss plan: care instructions Not available 11/16/2017 10:07:45 Nutrition Referral and Weight Management Follow-up Information Not available 11/16/2017 10:07:45 I have reviewed the note and agree with the assessment and plan of care. ion Not available 11/16/2017 12:22:35 Reason for Referral Urogynecologist Referral for Urinary incontinence this pt is at no increased risk for upcoming bladder-botox procedurer on Mar 02, 2017. There are no contraindications- Pt feels well and will continue current tx. Referring Physician: Kevin Burns, Internal Medicine, Encounter Date: 02/19/2017 Insurance Underwriting Assistant Referral for Sc reening for malignant neoplasm of cervix Referring Physician: Kevin Burns, Internal Medicine, Encounter Date: 08/03/2017 Stucco Worker Referral for Diso rder of nervous system due to diabetes mellitus Diabetes Mellitus TYpe II with diabetic peripheral neuropathy. PT. is on Lyrica. Needs diabetic foot care. Referring Physician: Jeannie Metz Internal Medicine, Encounter Date: 11/16/2017 Diabetic Ophthalmology Refer ral for Uncontrolled type 2 diabetes mellitus Diabetic eye exam. Referring Physician: Jeannie Metz, Internal Medicine, Encounter Date: 11/16/2017 Senior Information Systems Architect/dietitian Refer ral for Body mass index 30+ - obesity Referring Physician: Jeannie Metz, Internal Medicine, Encounter Date: 11/16/2017 Results Created Date Observation Date Name Description Value Unit Range Abnormal Flag Note LastModifiedBy Organization Detail LastModifiedTime 09/19/2016 urina lysis , dipst ick Leukocytes Negati ve Not Available In-Office Order Internal Use Only DO Not Attach Compendium DO Not Attach Compendium, Do Not Delete/merge, [id number] 09/19/2016 10:57:50 09/19/2016 urina lysis , dipst ick Nitrite positi ve Not Available In-Office Order Internal Use Only DO Not Attach Compendium DO Not Attach Compendium, Do Not Delete/merge, [id number] 09/19/2016 10:57:50 09/19/2016 urina lysis , dipst ick Urobilinogen .2 Not Available In-Of fice Order Internal Use Only DO Not Attach Compendium DO Not Attach Compendium, Do Not Delete/merge, [id number] 09/19/2016 10:57:50 09/19/2016 urina lysis , dipst ick Protein Negati ve Not Available In-Office Order Internal Use Only DO Not Attach Compendium DO Not Attach Compendium, Do Not Delete/merge, 09/19/2016 10:57:50 09/19/2016 urina lysis , dipst ick pH 6.0 Not Available In-Office Order Internal Use Only DO Not Attach Compendium DO Not Attach Compendium, Do Not Delete/merge, 09/19/2016 10:57:50 09/19/2016 urina lysis , dipst ick Blood Non-He molyze d: Trace Not Available In-Office Order Internal Use Only DO Not Attach Compendium DO Not Attach Compendium, Do Not Delete/merge, 09/19/2016 10:57:50 09/19/2016 urina lysis , dipst ick Specific Ada 1.015 Not Available In-Off ice Order Internal Use Only DO Not Attach Compendium DO Not Attach Compendium, Do Not Delete/merge, 09/19/2016 10:57:50 09/19/2016 urina lysis , dipst ick Ketone Negati ve Not Available In-Office Order Internal Use Only DO Not Attach Compendium DO Not Attach Compendium, Do Not Delete/merge, 09/19/2016 10:57:50 09/19/2016 urina lysis , dipst ick Bilirubin Negati ve Not Available In-Office Order Internal Use Only DO Not Attach Compendium DO Not Attach Compendium, Do Not Delete/merge, 09/19/2016 10:57:50 09/19/2016 urina lysis , dipst ick Glucose 1000 Not Available In-Office Order Internal Use Only DO Not Attach Compendium DO Not Attach Compendium, Do Not Delete/merge, 09/19/2016 10:57:50 09/19/2016 urina lysis , dipst ick Appearance Slight ly Cloudy Not Available In-Office Order Internal Use Only DO Not Attach Compendium DO Not Attach Compendium, Do Not Delete/merge, 09/19/2016 10:57:50 09/19/2016 urina lysis , dipst ick Color Yellow Not Available In-Office Order Internal Use Only DO Not Attach Compendium DO Not Attach Compendium, Do Not Delete/merge, 09/19/2016 10:57:50 09/20/19 17 09/20/2016 urina lysis , compl ete appear/color LIGHT YELLO W CLEAR Not Available [facility] [address] [place], [address], 09/20/2016 01:39:07 09/20/19 17 09/20/2016 urina lysis , compl ete sp. gravity 1.015 (1.002 -1.030 ) Not Available [facility] [address] [place], [address], 09/20/2016 01:39:07 09/20/19 17 09/20/2016 urina lysis , compl ete urine pH 6.0 (4.0-8 .0) Not Available [facility] [address] [place], [address], 09/20/2016 01:39:07 09/20/19 17 09/20/2016 urina lysis , compl ete urine albumin NEGATI VE (neg) Not Available [facility] [address] [place], [address], 09/20/2016 01:39:07 09/20/19 17 09/20/2016 urina lysis , compl ete urine glucose 3+ (neg) abnormal Not Available [facility] [address] [place], [address], 09/20/2016 01:39:07 09/20/1909/20/2016 urina lysis , compl ete urine ketones NEGATI VE (neg) Not Available [facility] [address] [place], [address], 09/20/2016 01:39:07 09/20/1909/20/2016 urina lysis , compl ete urine bilirubin NEGATI VE (neg) Not Available [facility] [address] [place], [address], 09/20/2016 01:39:07 09/20/19 17 09/20/2016 urina lysis , compl ete urine hemoglobn 1+ (neg) abnormal Not Available [facility] [address] [place], [address], 09/20/2016 01:39:07 09/20/19 17 09/20/2016 urina lysis , compl ete urine nitrite POSITI VE (neg) abnormal Not Available [facility] [address] [place], [address], 09/20/2016 01:39:07 09/20/19 17 09/20/2016 urina lysis , compl ete urine leukocyte 2+ (neg) abnormal Not Available [facility] [address] [place], [address], 09/20/2016 01:39:07 09/20/19 17 09/20/2016 urina lysis , compl ete urobilinogen NORMAL mg/dL (norm) Not Available [facility] [address] [place], [address], 09/20/2016 01:39:07 09/20/19 17 09/20/2016 urina lysis , compl ete urine WBC's 21 /hpf (0-5) high Not Available [facility] [address] [place], [address], 09/20/2016 01:39:07 09/20/19 17 09/20/2016 urina lysis , compl ete urine RBC's 9 /hpf (<3) high Not Available [facility] [address] [place], [address], 09/20/2016 01:39:07 09/20/19 17 09/20/2016 urina lysis , compl ete bacteria SLIGHT hpf (neg) abnormal Not Available [facility] [address] [place], [address], 09/20/2016 01:39:07 09/20/19 17 09/20/2016 urina lysis , compl ete squamous epith 1 /hpf Not Available [facility] [address] [place], [address], 09/20/2016 01:39:07 09/20/19 17 09/19/2016 cultu re, urine specimen description CLEAN CATCH (URINE ) Not Available [facility] [address] [place], [address], 09/21/2016 10:27:40 09/20/19 17 09/19/2016 cultu re, urine special requests NONE Not Available [facility] [address] [place], [address], 09/21/2016 10:27:40 09/20/19 17 09/21/2016 cultu re, urine culture >100,0 00 COL/ML KLEBSI ANDREA PNEUMO NIAE Not Available [facility] [address] [place], [address], 09/21/2016 10:27:40 09/20/19 17 09/21/2016 cultu re, urine report status FINAL 2016 Not Available [facility] [address] [place], [address], 09/21/2016 10:27:40 09/20/19 17 09/21/2016 cultu re, urine organism ORGANI SM >100,0 00 COL/ML KLEBSI ANDREA PNEUMO NIAE Not Available [facility] [address] [place], [address], 09/21/2016 10:27:40 09/20/19 17 09/21/2016 cultu re, urine method METHOD MIN. INHIB. CONC. (MCG/M L) Not Available [facility] [address] [place], [address], 09/21/2016 10:27:40 09/20/19 17 09/21/2016 cultu re, urine ampicillin AMPICI LLIN RESIST ANT resistant Not Available [facility] [address] [place], [address], 09/21/2016 10:27:40 09/20/19 17 09/21/2016 cultu re, urine ampicillin/s ulbactam AMPICI LLIN/S ULBACT AM SUSCEP TIBLE susceptib le Not Available [facility] [address] [place], [address], 09/21/2016 10:27:40 09/20/19 17 09/21/2016 cultu re, urine amoxicillin/ clavulanic acid AMOXIC ILLIN/ CLAVUL AN SUSCEP TIBLE susceptib le Not Available [facility] [address] [place], [address], 09/21/2016 10:27:40 09/20/19 17 09/21/2016 cultu re, urine cefazolin CEFAZO CLAUDIO SUSCEP TIBLE susceptib le Not Available [facility] [address] [place], [address], 09/21/2016 10:27:40 09/20/19 17 09/21/2016 cultu re, urine cefepime CEFEPI ME SUSCEP TIBLE susceptib le Not Available [facility] [address] [place], [address], 09/21/2016 10:27:40 09/20/19 17 09/21/2016 cultu re, urine ceftriaxone CEFTRI AXONE SUSCEP TIBLE susceptib le Not Available [facility] [address] [place], [address], 09/21/2016 10:27:40 09/20/19 17 09/21/2016 cultu re, urine ciprofloxaci n CIPROF LOXACI N SUSCEP TIBLE susceptib le Not Available [facility] [address] [place], [address], 09/21/2016 10:27:40 09/20/19 17 09/21/2016 cultu re, urine gentamicin GENTAM ICIN SUSCEP TIBLE susceptib le Not Available [facility] [address] [place], [address], 09/21/2016 10:27:40 09/20/19 17 09/21/2016 cultu re, urine levofloxacin LEVOFL OXACIN SUSCEP TIBLE susceptib le Not Available [facility] [address] [place], [address], 09/21/2016 10:27:40 09/20/19 17 09/21/2016 cultu re, urine meropenem MEROPE NEM SUSCEP TIBLE susceptib le Not Available [facility] [address] [place], [address], 09/21/2016 10:27:40 09/20/19 17 09/21/2016 cultu re, urine nitrofuranto in NITROF URANTO IN SUSCEP TIBLE susceptib le Not Available [facility] [address] [place], [address], 09/21/2016 10:27:40 09/20/19 17 09/21/2016 cultu re, urine piperacillin /tazobactam PIPERA CILLIN /TAZOB AC SUSCEP TIBLE susceptib le Not Available [facility] [address] [place], [address], 09/21/2016 10:27:40 09/20/19 17 09/21/2016 cultu re, urine trimeth/sulf amethox TRIMET H/SULF AMETHO X RESIST ANT resistant Not Available [facility] [address] [place], [address], 09/21/2016 10:27:40 09/20/19 17 09/21/2016 cultu re, urine tetracycline TETRAC YCLINE SUSCEP TIBLE susceptib le Not Available [facility] [address], [place], [address], 09/21/2016 10:27:40 11/17/19 18 11/16/2017 gluco se, dejuanalma rstic k, blood Blood Glucose: mg/dl 255 Not Available In-Off ice Order Internal Use Only DO Not Attach Compendium DO Not Attach Compendium, Do Not Delete/merge, [id number] 11/16/2017 09:34:27 11/17/19 18 11/16/2017 hemog lobin A1C, dejuanalma rstic k HA1C 10.0 % 4-6 Not Available In-Office Order Internal Use Only DO Not Attach Compendium DO Not Attach Compendium, Do Not Delete/merge, [id number] 11/16/2017 09:33:53 11/19/19 18 11/18/2017 micro album in, urine micro-albumi n 146.4 mg/L (0-20) high Not Available [facility] [place], [address], 11/18/2017 14:18:56 11/19/19 18 11/18/2017 micro album in, urine malb/creat ratio 130.5 mg/gm (0-20) high Not Available [facility] [address] [place], [address], 11/18/2017 14:18:56 11/19/19 18 11/18/2017 micro album in, urine urine creat for micro albumin 112.2 mg/dL Not Available [facility] [address] [place], [address], 11/18/2017 14:18:56 11/19/19 18 11/18/2017 CMP, serum or plasm a glucose 203 mg/dL (70-99 ) high Not Available [facility] [address] [place], [address], 11/18/2017 14:47:05 11/19/19 18 11/18/2017 CMP, serum or plasm a BUN 13 mg/dL (6-20) Not Available [facility] [address] [place], [address], 11/18/2017 14:47:05 11/19/19 18 11/18/2017 CMP, serum or plasm a creatinine 0.6 mg/dL (0.5-1 .0) Not Available [facility] [address] [place], [address], 11/18/2017 14:47:05 11/19/19 18 11/18/2017 CMP, serum or plasm a sodium 142 mmol/ L (133-1 45) Not Available [facility] [address] [place], [address], 11/18/2017 14:47:05 11/19/19 18 11/18/2017 CMP, serum or plasm a potassium 4.5 mmol/ L (3.6-5 .2) Not Available [facility] [address] [place], [address], 11/18/2017 14:47:05 11/19/19 18 11/18/2017 CMP, serum or plasm a chloride 103 mmol/ L (98-10 7) Not Available [facility] [address] [place], [address], 11/18/2017 14:47:05 11/19/19 18 11/18/2017 CMP, serum or plasm a bicarbonate 29 mmol/ L (22-29 ) Not Available [facility] [address] [place], [address], 11/18/2017 14:47:05 11/19/19 18 11/18/2017 CMP, serum or plasm a anion gap 10 (4-17) Not Available [facility] [address] [place], [address], 11/18/2017 14:47:05 11/19/19 18 11/18/2017 CMP, serum or plasm a albumin 3.9 gm/dL (3.4-4 .8) Not Available [facility] [address] [place], [address], 11/18/2017 14:47:05 11/19/19 18 11/18/2017 CMP, serum or plasm a calcium 9.0 mg/dL (8.6-1 0.5) Not Available [facility] [address] [place], [address], 11/18/2017 14:47:05 11/19/19 18 11/18/2017 CMP, serum or plasm a bilirubin,to julieta 0.2 mg/dL (0-1.2 ) Not Available [facility] [address] [place], [address], 11/18/2017 14:47:11/19/19 18 11/18/2017 CMP, serum or plasm a total protein 6.6 gm/dL (6.2-8 .2) Not Available [facility] [address] [place], [address], 11/18/2017 14:47:05 11/19/19 18 11/18/2017 CMP, serum or plasm a Ag ratio 1.4 Not Available [facility] [address] [place], [address], 11/18/2017 14:47:05 11/19/19 18 11/18/2017 CMP, serum or plasm a AST 12 U/L (0-32) Not Available [facility] [address] [place], [address], 11/18/2017 14:47:05 11/19/19 18 11/18/2017 CMP, serum or plasm a alk phos 108 U/L (35-10 4) high Not Available [facility] [place], [address], 11/18/2017 14:47:11/19/19 18 11/18/2017 CMP, serum or plasm a ALT 23 U/L (0-33) Not Available [facility] [address] [place], [address], 11/18/2017 14:47:05 11/19/19 18 11/18/2017 CMP, serum or plasm a est GFR non 106 mL/mi n/1.7 3_M2 Creat inine based estim ated glome rular filtr ation rate (eGFR ) is calcu lated using the Chron ic Kidne y Disea se Epide miolo gy Colla borat ion (CKD- EPI). The CKD-E PI creat inine equat ion has not been valid ated in child hari (<18 years ), pregn ant women or in some racia l or ethni c subgr oups other than Cauca sians and Afric an Ameri cans. Not Available [facility] [address] [place], [address], 11/18/2017 14:47:05 11/19/19 18 11/18/2017 CMP, serum or plasm a est GFR 122 mL/mi n/1.7 3_M2 Creat inine based estim ated glome rular filtr ation rate (eGFR ) is calcu lated using the Chron ic Kidne y Disea se Epide mirodrigo tolbert Collenrico borat ion (CKD- EPI). The CKD-E PI creat inklaudia equat ion has not been valid ated in child hari (<18 years ), pregn ant women or in some racia l or ethni c subgr oups other than Cauca sians and Afric an Ameri cans. Not Available [facility] [address] [place], [address], 11/18/2017 14:47:05 11/19/19 18 11/18/2017 lipid panel , serum cholesterol, total 142 mg/dL (<200) Not Available [facility] [address] [place], [address], 11/18/2017 14:47:06 11/19/19 18 11/18/2017 lipid panel , serum triglyceride 123 mg/dL (<150) Not Available [facility] [address] [place], [address], 11/18/2017 14:47:06 11/19/19 18 11/18/2017 lipid panel , serum HDL chol 42 mg/dL (>39) Not Available [facility] [address] [place], [address], 11/18/2017 14:47:06 11/19/19 18 11/18/2017 lipid panel , serum LDL cholesterol, calculated 75 mg/dL (0-130 ) Not Available [facility] [address] [place], [address], 11/18/2017 14:47:06 11/19/19 18 11/18/2017 lipid panel , serum non HDL cholesterol (calc) 100 mg/dL (<160) Not Available [facility] [address] [place], [address], 11/18/2017 14:47:06 09/25/19 17 09/23/2016 US, blessing y No observ ation record ed. [email or web address] Not Available 17:51:26 01/08/20 17 01/06/2017 XR, lumbo sacra l spine No observ ation record ed. [email or web address] [facility] [address] [facility] [address], [place], [address], 01/09/2017 14:52:34 01/08/20 17 01/06/2017 XR, sacro iliac joint (s) No observ ation record ed. [email or web address] [facility] [address] [facility] [address], [place], [address], 01/09/2017 14:52:34 08/18/19 18 08/11/2017 MAMMO , scree [place], bilat eral No observ ation record ed. [email or web address] [facility] [address] [place], [address], 08/17/2017 16:21:15 Result Notes None recorded. Problems Name Problem SNOMED Code Status Onset Date Resolution Date Notes Provider Name and Address Organization Details Recorded Time [facility] l [facility] jim 71040521 Active Thalia emmanuel [facility] 8 14:05:25 Hyperlip idemia 39353334 Active Thalia emmanuel [facility] 8 14:05:25 Diabetes mellitus 47311172 Completed 11/16/2017 Jeannie Metz PA-C [address] [facility] [address], [place], [address] , [facility] [place] [place] 8 09:55:17 Low back pain 872311712 Completed 08/21/[address] [facility] 7 08:56:16 Gastroes ophageal reflux disease 959682554 Active Thalia emmanuel [facility] 8 14:05:25 Acute bronchit is 86032932 Completed 200711/22/2013 RECORDED 02/01/20 08 10:12AM BY PASCUAL PUTNAM MA, ANNOTATI ON/DAYNE emmanuel [facility] 6 12:21:01 Acute pharyngi tis 487299154 Completed 201211/22/2013 RECORDED 11/10/19 13 9:52AM BY MALICK HILL MA, ANNOTATI ON/ADDEN DUM Kevin Elsy'Alessand ro null, [facility] 6 12:21:01 Chronic allergic conjunct ivitis 29378099 Completed 201211/22/2013 RECORDED 05/11/19 13 9:31AM BY MALICK HILL MA, ANNOTATI ON/ADDEN DUM Kevin D'Alessand ro null, [facility] 6 12:21:01 Allergy Completed 201111/22/2013 RECORDED 11/17/19 12 9:29AM BY IVETH OSUNA I, ANNOTATI ON/ADDEN DUM Kevin Elsy'Alessand ro null, [facility] 6 12:21:01 Examinat ion for suspecte d mental disorder Completed 201211/22/2013 RECORDED 11/10/19 13 9:52AM BY MALICK HILL MA, ANNOTATI ON/ADDEN DUM Kevin Elsy'Alessand ro null, [facility] 6 12:21:01 Screenin g for malignan t neoplasm of breast Completed 201111/22/2013 RECORDED 11/17/19 12 9:29AM BY JAYASHREE DOUGLASATI ON/ADDEN DUM Jessica Gomez MA null, [facility] 7 10:15:40 Screenin g for malignan t neoplasm of breast Completed 09/30/2016 Jessica Gomez MA null, [facility] 7 10:15:40 Screenin g for malignan t neoplasm of cervix Completed 201211/22/2013 RECORDED 05/11/19 13 9:31AM BY MALICK HILL MA, ANNOTATI ON/ADDEN DUM Dyan Braun MA null, [facility] 7 08:56:00 Constipa tion [id number] Completed 08/21/2016 Dyan emmanuel, [facility] 7 08:55:40 Risk of exposure to communic able disease 179306992 Completed 201111/22/2013 RECORDED 11/17/19 12 9:29AM BY RICK DOUGLAS ON/[facility] Kevin evans null, [facility] 6 12:21:01 Renal disorder due to type 2 diabetes mellitus 708942825 Active Thalia emmanuel, [facility] 8 14:05:25 Dysfunct ional uterine bleeding Completed 201111/22/2013 STORY: SEVERE CRAMPING ; RECORDED 11/17/19 12 9:29AM BY RICK DOUGLAS ON/[facility] Kevin evans null, [facility] 6 12:21:01 Divertic ulitis of colon 901559371 Active Thalia emmanuel, [facility] 8 14:05:25 Dysuria 87871346 Completed 09/16/2016 Dyan emmanuel, [facility] [facility] 7 15:45:17 Dysuria [id number] Completed 201211/22/2013 RECORDED 05/11/19 13 9:31AM BY MALICK HILL MA, RICK ON/ Dyan emmanuel, [facility] 7 15:45:17 Follow-u p encounte r Completed 201211/22/2013 RECORDED 03/29/20 13 10:46AM BY EMMA SAGASTUME MA, RICK ON/[facility] Kevin emmanuel, [facility] 6 12:21:01 Influenz a vaccine needed [id number] 06 Completed 08/21/[address] [facility] 7 08:55:43 Influenz a vaccine needed [id number] 06 Completed 200711/22/2013 RECORDED 08/05/19 08 10:33AM BY JEM CARDENAS, HISTORIC AL SUMMARY Dyan emmanuel, [facility] 7 08:55:43 Tobacco user [id number] Completed 201211/22/2013 RECORDED 03/29/20 13 10:46AM BY EMMA SAGASTUME MA, ANNOTATI ON/ADDEN DUM Kevin Acosta'Alessand ro null, [facility] 6 12:21:01 History of clinical finding in subject [id number] Completed 08/21/2016 Dyan emmanuel, [facility] 7 08:56:29 Adult health examinat ion Completed 201211/22/2013 RECORDED 06/24/19 13 8:51AM BY MALICK HILL MA, ANNOTATI ON/ADDEN DUM Kevin Acosta'Alessand ro null, [facility] 6 12:21:01 General examinat ion of patient Completed 200711/22/2013 RECORDED 02/01/20 08 10:12AM BY PASCUAL PUTNAM MA, ANNOTATI ON/ADDEN DUM Kevin Acosta'Alessand ro null, [facility] 6 12:21:01 Hirsutis m [id number] Active Thalia Alvarez null, [facility] 8 14:05:25 Ingrowin g nail 550246457 Completed 201111/22/2013 RECORDED 11/17/19 12 9:29AM BY JAYASHREE [facility]I [facility] Kevin Acosta'Alessand ro null, [facility] 6 12:21:01 Laborato ry procedur e performe d [id number] Completed 08/21/2016 Dyan emmanuel, [facility] 7 08:56:04 Menstrua tion finding Completed 201211/22/2013 RECORDED 03/29/20 13 10:46AM BY EMMA SAGASTUME MA, ANNOTATI ON/ADDEN DUM Kevin Henry ro null, [facility] 6 12:21:01 Dysmenor sanjay [id number] Completed 201211/22/2013 RECORDED 03/29/20 13 10:47AM BY EMMA SAGASTUME MA, ANNOTATI ON/ADDEN DUM Kevin Henry ro null, [facility] 6 12:21:01 Fibromyo sitis [id number] Completed 201111/22/2013 STORY: DUE TO ATORVAST ATIN (TOLERAT ES SIMVASTA TIN); RECORDED 03/17/20 12 2:26PM BY MALICK HILL MA, ANNOTATI ON/ADDEN [facility] Kevin Leiand ro null, [facility] 6 12:21:01 Administ ration of bacteria l and viral vaccine Completed 200711/22/2013 RECORDED 02/01/20 08 10:14AM BY PASCUAL PUTNAM MA, OFFICE VISIT Kevin Henry ro null, [facility] 6 12:21:01 Female genital organ symptoms [id number] Completed 201211/22/2013 RECORDED 05/11/19 13 9:31AM BY MALICK HILL MA, RICK ON[facility] Kevin Henry ro null, [facility] 6 12:21:01 Tobacco user [id number] Active Thalia Alvarez cholo, [facility] 8 14:05:25 Polycyst ic ovaries Completed 201111/22/2013 RECORDED 11/17/19 12 9:29AM BY RICK DOUGLAS ON/ADDEN [facility] Kevin BanegasAlessand ro null, [facility] 6 12:21:01 Proteinu radha 44704721 Active Thalia Alvarez null, [facility] 8 14:05:25 Proteinu radha 14686456 Completed 201111/22/2013 RECORDED 11/17/19 12 9:29AM BY RICK DOUGLAS ON/ADDEN DUM Kevin Leiand ro null, [facility] 6 12:21:01 Eruption [id number] Completed 201111/22/2013 IMPRESSI ON: PT WITH PROGRESS PAMELA HIGHLY PRURITIC RASH X PAST WEEK, HANDS, FEET NOW TORSO BREAST AND ABDO AFFECTED . 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 HIGHLY SUSPICIO US FOR SCABIES INFX. ADVISED RE USE OF MED, CLEANING AND LAUNDERI NG AT HOME. OOW X TODAY AND W/E, NOTE PROVIDED . TO CALL IF RASH PERSISTS AFTER TX.; RECORDED 11/17/19 12 9:29AM BY RICK DOUGLAS ON/ADDEN DUM Kevin Leiand ro null, [facility] 6 12:21:01 Sleep apnea [id number] Completed 201111/22/2013 RECORDED 11/17/19 12 9:29AM BY RICK DUOGLAS ON/ADDEN DUM Kevin Henry ro null, [facility] 6 12:21:01 Tobacco dependen ce syndrome 81876667 Completed 201111/22/2013 RECORDED 06/21/19 12 11:13AM BY PASCUAL PUTNAM MA, ANNOTATI ON/ADDEN DUM Kevin Leiand ro null, [facility] 6 12:21:01 Type 2 diabetes mellitus without complica tion [id number] Completed 201111/22/2013 RECORDED 11/17/19 12 9:29AM BY RICK DOUGLAS ON/ADDEN DUM Kevin Acosta'Alessand ro null, [facility] 6 12:21:01 Uncontro lled type 2 diabetes mellitus 900524508 Completed 200811/22/2013 RECORDED 05/30/19 09 7:36AM BY PASCUAL PUTNAM MA, ANNOTATI ON/ADDEN DUM Kevin evans null, [facility] 6 12:21:01 Urinary tract infectio us disease 14564884 Completed 201211/22/2013 STORY: CT NEG @ [facility]/N O PATHOLOG Y. F/U PRN; RECORDED 03/29/20 13 10:46AM BY EMMA SAGASTUME MA, ANNOTATI ON/ADDEN DUM Kevin evans null, [facility] 6 12:21:01 Vaginiti s and vulvovag initis Completed 201211/22/2013 RECORDED 06/24/19 13 8:51AM BY MALICK HILL MA, JAYASHREEATI ON/ADDEN DUM Dyan Braun MA null, [facility] 7 08:55:57 Candidal vulvovag initis 81867291 Completed 200711/22/2013 RECORDED 02/01/20 08 10:12AM BY PASCUAL PUTNAM MA, ANNOTATI ON/ADDEN DUM Kevin evans null, [facility] 6 12:21:01 Acute bronchit is 81094073 Completed 200712/12/2013 RECORDED 02/01/20 08 10:12AM BY PASCUAL PUTNAM MA, JAYASHREEATI ON/ADDEN MEGAN evans null, [facility] 6 12:21:01 Acute pharyngi tis [id number] Completed 201212/12/2013 RECORDED 11/10/19 13 9:52AM BY MALICK HILL MA, ANNOTATI ON/ADDGLENN evans null, [facility] 6 12:21:01 Chronic allergic conjunct ivitis [id number] Completed 201212/12/2013 RECORDED 05/11/19 13 9:31AM BY MALICK HILL MA, ANNOTATI ON/ADDEN DUM Kevin evans null, [facility] 6 12:21:01 Allergy Completed 201112/12/2013 RECORDED 11/17/19 12 9:29AM BY JAYASHREE DOUGLASATI ON/ADDEN DUM Kevin evans null, [facility] 6 12:21:01 Examinat ion for suspecte d mental disorder Completed 201212/12/2013 RECORDED 11/10/19 13 9:52AM BY MALICK HILL MA, RICK ON/ADDEN DUM Kevin Henry ro null, [facility] 6 12:21:01 Backache [id number] Completed 08/21/2016 Dyan emmanuel, [facility] 7 08:55:50 Screenin g for malignan t neoplasm of breast Completed 201112/12/2013 RECORDED 11/17/19 12 9:29AM BY RICK DOUGLAS ON/ADDEN DUM JEM Barnett, [facility] 7 10:15:40 Screenin g for malignan t neoplasm of cervix Completed 08/21/2016 Dyan emmanuel, [facility] 7 08:56:00 Screenin g for malignan t neoplasm of cervix Completed 201212/12/2013 RECORDED 05/11/19 13 9:31AM BY MALICK HILL MA, ANNOTATI ON/ADDEN DUM Dyan emmanuel [facility] 7 08:56:00 Risk of exposure to communic able disease [id number] Completed 201112/12/2013 RECORDED 11/17/19 12 9:29AM BY RICK DOUGLAS ON/ADDEN DUM Kevin emmanuel, [facility] 6 12:21:01 Depressi ve disorder 61249388 Completed 05/28/2014 Kevin emmanuel, [facility] 6 12:21:01 Dysfunct ional uterine bleeding Completed 201112/12/2013 STORY: SEVERE CRAMPING ; RECORDED 11/17/19 12 9:29AM BY RICK DOUGLAS ON/ADDEN DUM Kevin evans null, [facility] 6 12:21:01 Follow-u p encounte r Completed 201212/12/2013 RECORDED 03/29/20 13 10:46AM BY EMMA SAGASTUME MA, JAYASHREEATI ON/ADDEN DUM Kevin evans null, [facility] 6 12:21:01 Influenz a vaccine needed [id number] 06 Completed 200912/12/2013 DATE: 04/23/20 10; RECORDED 11/16/19 14 12:57PM BY PASCUAL PUTNAM MA, JAYASHREEATI ON/ADDEN DUM Dyan Braun MA null, [facility] 7 08:55:43 Tobacco user [id number] Completed 201212/12/2013 RECORDED 03/29/20 13 10:46AM BY EMMA SAGASTUME MA, RICK ON/ADDEN DUM Kevin evans null, [facility] 6 12:21:01 Adult health examinat ion Completed 201212/12/2013 RECORDED 06/24/19 13 8:51AM BY MALICK HILL MA, RICK ON/ADDEN MEGAN evans null, [facility] 6 12:21:01 General examinat ion of patient Completed 200712/12/2013 RECORDED 02/01/20 08 10:12AM BY PASCUAL PUTNAM MA, RICK ON/ADDEN DUM Kevin evans null, [facility] 6 12:21:01 Diana painting [id number] Completed 201112/12/2013 RECORDED 11/17/19 12 9:29AM BY IVETH OSUNA I, ANNOTATI ON/ADDEN DUM Kevin evans null, [facility] 6 12:21:01 Laborato ry procedur e performe d 750653101 Completed 201312/12/2013 RECORDED 11/16/19 14 12:57PM BY PASCUAL PUTNAM MA, ANNOTATI ON/ADDEN DUM Dyan Braun MA null, [facility] 7 08:56:04 Low back pain 795824938 Completed 201312/12/2013 RECORDED 11/16/19 14 12:56PM BY PASCUAL PUTNAM MA, ANNOTATI ON/ADDEN DUM Dyan Braun MA null, [facility] 7 08:56:16 Menstrua tion finding Completed 201212/12/2013 RECORDED 03/29/20 13 10:46AM BY EMMA SAGASTUME MA, ANNOTATI ON/ADDEN DUM Kevin evans null, [facility] 6 12:21:01 Dysmenor sanjay [id number] Completed 201212/12/2013 RECORDED 03/29/20 13 10:47AM BY EMMA SAGASTUME MA, ANNOTATI ON/ADDEN DUM Kevin evans null, [facility] 6 12:21:01 Fibromyo sitis 30643558 Completed 201112/12/2013 STORY: DUE TO ATORVAST ATIN (TOLERAT ES SIMVASTA TIN); RECORDED 03/17/20 12 2:26PM BY MALICK HILL MA, RICK ON/ADDEN DUM Kevin evans null, [facility] 6 12:21:01 Administ ration of bacteria l and viral vaccine Completed 200712/12/2013 RECORDED 02/01/20 08 10:14AM BY PASCUAL PUTNAM MA, OFFICE VISIT Kevin emmanuel, [facility] 6 12:21:01 Female genital organ symptoms [id number] Completed 201212/12/2013 RECORDED 05/11/19 13 9:31AM BY MALICK HILL MA, RICK ON/ADDEN DUM Kevin Henry ro null, [facility] 6 12:21:01 Polycyst ic ovaries Completed 201112/12/2013 RECORDED 11/17/19 12 9:29AM BY RICK DOUGLAS ON/ADDEN DUM Kevin Henry ro null, [facility] 6 12:21:01 Eruption [id number] Completed 201112/12/2013 IMPRESSI ON: PT WITH PROGRESS PAMELA HIGHLY PRURITIC RASH X PAST WEEK, HANDS, FEET NOW TORSO BREAST AND ABDO AFFECTED . 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 HIGHLY SUSPICIO US FOR SCABIES INFX. ADVISED RE USE OF MED, CLEANING AND LAUNDERI NG AT HOME. OOW X TODAY AND W/E, NOTE PROVIDED . TO CALL IF RASH PERSISTS AFTER TX.; RECORDED 11/17/19 12 9:29AM BY RICK DOUGLAS ON/ADDEN DUM Kevin Henry ro cholo, [facility] 6 12:21:01 Sleep apnea [id number] Completed 201112/12/2013 RECORDED 11/17/19 12 9:29AM BY RICK DOUGLAS ON/ADDEN DUM Kevin Henry ro null, [facility] 6 12:21:01 Tobacco dependen ce syndrome 82850133 Completed 201112/12/2013 RECORDED 06/21/19 12 11:13AM BY PASCUAL PUTNAM MA, RICK ON/ADDEN DUM Kevin Henry ro null, [facility] 6 12:21:01 Type 2 diabetes mellitus without complica tion 263704710 Completed 201112/12/2013 RECORDED 11/17/19 12 9:29AM BY IVETH OSUNA I [facility], [facility] 6 12:21:01 Uncontro lled type 2 diabetes mellitus 169514609 Completed 200812/12/2013 RECORDED 05/30/19 09 7:36AM BY PASCUAL PUTNAM MA, ANNOTATI ON/ADDEN DUM Kevin evans null, [facility] 6 12:21:01 Urinary tract infectio us disease [id number] Completed 201212/12/2013 STORY: CT NEG @ [facility] FOR [facility]/N O PATHOLOG Y. F/U PRN; RECORDED 03/29/20 13 10:46AM BY EMMA SAGASTUME MA, ANNOTATI ON/[facility] Kevin evans null, [facility] 6 12:21:01 Vaginiti s and vulvovag initis Completed 201212/12/2013 RECORDED 06/24/19 13 8:51AM BY MALICK HILL MA, ANNOTATI ON/ADDEN [facility] Dyan emmanuel, [facility] 7 08:55:57 Candidal vulvovag initis 35036104 Completed 200712/12/2013 RECORDED 02/01/20 08 10:12AM BY PASCUAL PUTNAM MA, ANNOTATI ON/[facility] Kevin evans null, [facility] 6 12:21:01 Acute vaginiti s [id number] Completed 08/21/2016 Dyan emmanuel, [facility] 7 08:56:09 Vaginiti s 79124525 Completed 08/21/2016 Dyan emmanuel, [facility] 7 08:56:22 Spasm 53485455 Completed 08/21/2016 Dyan emmanuel, 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 8 14:05:25 Uncontro lled type 2 diabetes mellitus 136894435 Active Thalia Alvarez null, [facility] 8 14:05:25 Obesity 370489827 Active Thalia Alvarez null, 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 8 14:05:25 Major depressi ve disorder 211767635 Active Thalia Alvarez null, [facility] 8 14:05:25 Pain in pelvis 66053811 Completed 08/21/2016 Dyan emmanuel, [facility] 7 08:56:20 Leukocyt osis 976521394 Active Thalia Alvarez null, [facility] 8 14:05:25 Steatosi s of liver 294472614 Active Thalia Alvarez null, [facility] 8 14:05:25 Shoulder joint pain 994131506 Completed 08/21/2016 Dyan emmanuel, [facility] 7 08:56:14 Chronic pain 97122180 Active Thalia Alvarez null, [facility] 8 14:05:25 Disorder of nervous system due to diabetes mellitus 220827650 Active Thalia Alvarez null, [facility] 8 14:05:25 Urinary incontin ence 365899223 Active Thalia emmanuel [facility] 8 14:05:25 Vaginiti s and vulvovag initis Completed 08/21/[address] [facility] 7 08:55:57 Lateral epicondy litis 721624139 Active Thaliabienvenido emmanuel [facility] 8 14:05:25 Edema of the upper extremit y 997670387 Completed 08/21/[address] [facility] 7 08:55:46 Insomnia disorder related to another mental disorder 99370245 Active 2017 Jeannie Metz PA-C [address], [place], [address] , [facility] [place], [place] 8 09:59:11 Chronic kidney disease stage 1 110317106 Active [address] [facility] 8 14:30:22 Problem Notes None recorded. Procedures Surgical History Date Name Laterality Status Provider Name and Address Organization Details Recorded Time 8 Drain/inj joint/bursa w/o us completed Wen Irizarry [facility] 10/27/2017 14:13:15 8 Back Surgery completed Wen Irizarry [facility] 10/01/2017 15:05:30 8 Orthopedic Surgery completed Adalgisa Marlow [facility] 10/01/2017 16:12:10 8 Most Recent Mammogram completed Thalia Alvarez [facility] 08/17/2017 16:21:29 8 Mammogram Screening completed Thalia Alvarez [facility] 08/17/2017 16:21:24 8 Inj paravert f jnt c/t 1 lev completed Thalia Alvarez [facility] 07/09/2017 15:02:16 7 Cystoscopy completed Deb Quick [facility] 03/19/2017 15:05:02 7 Chronic Pain Assessment completed Dyan Braun MA [facility] 08/21/2016 08:56:53 2 Date of Last Pap Smear completed Jessica Gomez MA [facility] 11/22/2013 10:36:18 Tubal Ligation completed Emigdio Carson [facility] [address], [place], [address], [facility] [place], [place] 11/22/2013 10:57:11 Imaging Results Imaging Date Name Status LastModified by Organiz ation Details LastModified Time 09/23/2016 US, kidney completed Information not available 09/24/2016 17:51:26 01/06/2017 [facility] [address] [place], [address], 01/09/2017 14:52:34 01/06/2017 XR, sacroiliac joint(s) [facility] [address], [place], [address], 01/09/2017 14:52:34 08/11/2017 MAMMO, screening, bilateral completed [email or web address] [facility] [address] [place], [address], 08/17/2017 16:21:15 Procedure Notes None recorded. Medical Equipment None Reported. Allergies Allergen ID Allergen Name Allergen Category Reaction Reaction Severity Criticality Documentation Date Start Date Code Code System Note Provider Name and Address Organization Details Recorded Time 03514 Product containin g angiotens in-conver ting enzyme inhibitor (product) medicatio n cough Not available Not available 11/15/20132013 50213 009 SNOMED JEM Farfan, [facility] 4 15:39:36 53563 Byetta medicatio n other Not available Not available 11/15/20132013 31180 1 RxNorm Pascual Sheri-M JEM zaman null, [facility] 4 15:39:36 20163 Cymbalta medicatio n rash severe Not available 04/13/20142013 55269 4 RxNorm ? SJS from this med Aleida Van RN null, [facility] 4 10:43:02 36168 Medicinal product containin g penicilli n and acting as antibacte rial agent (product) medicatio n hives moderate Not available 09/19/2016 55359 05 SNOMED Kevin Lindsey lazara null, [facility] 7 11:26:10 Medications Name Sig Start Date Stop Date Status Note LastModified by Organization Details LastModified Time oxcarbaze pine 300 mg tabs 0.5 tab in the a.m. 0.5 at noon and 1 tablet at bedtime active Not Available Not Available No t Available zolpidem tartrate 10 mg tabs 1 tablet daily by mouth active Not Available Not Available No t Available oxycodone hcl 5 mg tabs active Not Available Not Available Not Available glipizide er 10 mg tb24 1 tablet daily by mouth active Not Available Not Available No t Available olanzapin e 10 mg tabs active Not Available Not Available Not Available simvastat in 10 mg tabs active Not Available Not Available Not Available oxycodone /acetamin ophen 5-325 mg tabs active Not Available Not Available Not Available freestyle mis lancets active Not Available Not Available Not Available losartan potassium /hydrochl orothiazi de 100-12.5 mg tabs 1 tablet daily by mouth active Not Available Not Available No t Available Prescript ion - Prior Authoriza tion Request 09/30 completed Not Available Not Available Not Available citalopra m hydrobrom akua 20 mg tabs 1 tablet daily by mouth active Not Available Not Available No t Available metformin hcl 500 mg tabs 2 tab in the a.m. 2 tab p.m. ny mouth active Not Available Not Available No t Available humalog mix 75/25 (75-25) 100 unit/ml susp active Not Available Not Available Not Available oxycodone hcl 10 mg tabs active Not Available Not Available Not Available freestyle lexie lite active Not Available Not Available Not Available olanzapin e 20 mg tabs 1 tablet daily by mouth at bedtime active Not Available Not Available No t Available atorvasta tin calcium 10 mg tabs active Not Available Not Available Not Available Humalog Mix 75-25 (U-100) Insulin 100 unit/mL subcutane ous suspensio n Inject 42 units twice a day by sub-q route as directed for 30 days. 09/30 completed Not Available Not Available Not Available fluconazo le 100 mg tablet DAILY 12/13 completed Not Available Not Available Not Available methocarb eddie 500 mg tablet Take 2 tablets 4 times a day by oral route as directed for 5 days. 08/21 completed Not Available Not Available Not Available metformin 500 mg tablet Take 2 tablets twice a day by oral route as directed for 30 days. active Not Available Not Available No t Available oxcarbaze pine 150 mg tablet Take 1 tablet twice a day by oral route for 30 days. 08/21 completed Not Available Not Available Not Available atorvasta tin 20 mg tablet TAKE 1 TABLET BY MOUTH DAILY active Not Available Not Available No t Available insulin glargine (U-100) 100 unit/mL subcutane ous solution AT BEDTIME 03/29 completed RECORDED 03/29/20 13 10:54AM BY EMMA SAGASTUME MA, OFFICE VISIT;DR VINCENT CLIFFORD/ENDOC RINE Not Available Not Available Not Available ciproflox acin 750 mg tablet TWO TIMES DAILY 03/24 completed RECORDED 03/24/20 12 10:00AM BY PER DESOUZA, MEDICATI ON AUTO-PALOMO CTIVATIO N; Not Available Not Available Not Available irbesarta n 150 mg-hydroc hlorothia zide 12.5 mg tablet 11/07 completed 1 po qd Not Available Not Available Not Available atorvasta tin 10 mg tablet TAKE 1 TABLET BY MOUTH EVERY DAY 2016 active Not Available Not Available Not Avai lable oxybutyni n chloride ER 10 mg tablet,ex tended release 24 hr Take 1 tablet every day by oral route as directed for 30 days. 05/16 completed Not Available Not Available Not Available ibuprofen 800 mg tablet EVERY SIX HOURS 2012 active RECORDED 05/31/19 14 11:05AM BY JESSICA GOMEZ, OFFICE VISIT; Not Available Not Available Not Available Novolin N NPH U-100 Insulin isophane 100 unit/mL subcutane ous susp 01/12 completed Not Available Not Available Not Available fluconazo le 150 mg tablet TAKE 1 TABLET BY MOUTH ONCE MAY REPEAT AFTER 72 HOURS NEEDED active Not Available Not Available No t Available fluconazo le 200 mg tablet QD 11/23 completed RECORDED 11/28/19 08 8:18AM BY NICANOR CARRILLO MD, MEDICATI ON AUTO-PALOMO CTIVATIO N; Not Available Not Available Not Available glipizide ER 10 mg tablet, extended release 24 hr Take 1 tablet twice a day by oral route as directed for 30 days. active Not Available Not Available No t Available meloxicam 15 mg tablet Take 1 tablet every day by oral route as directed for 30 days. 08/03 completed Not Available Not Available Not Available Norma Lancaren 28 gauge active Not Available Not Available Not Available lisinopri l 20 mg tablet QD 2007 active RECORDED 08/05/19 08 10:04AM BY JEM CANTU, ANNOTATI ON/ADDEN DUM; Not Available Not Available Not Available ondansetr on HCl 4 mg tablet active Not Available Not Available No t Available prednison e 20 mg tablet Take 2 tablets every day by oral route for 5 days. active Not Available Not Available No t Available simvastat in 10 mg tablet TAKE 1 TABLET BY MOUTH AT BEDTIME 11/05 completed Not Available Not Available Not Available glipizide ER 5 mg tablet, extended release 24 hr 02/03 completed Not Available Not Available Not Available metformin 850 mg tablet TID 11/01 completed RECORDED 11/02/19 08 2:29PM BY KEVIN BYRD MD, ANNOTATI ON/ADDEN DUM; Not Available Not Available Not Available permethri n 5 % topical cream FOR 8 TO 14 HOURS 09/29 completed RECORDED 10/23/19 11 9:23AM BY KD HILL, PAElenaC, MEDICATI ON AUTO-PALOMO CTIVATIO N;MAY REPEAT IN 14 DAYS IF LIVE MITES STILL PRESENT; PRURITUS MAY PERSIST AFTER EFFECTIV E TX Not Available Not Available Not Available pioglitaz one 45 mg tablet DAILY 03/29 completed RECORDED 03/29/20 13 10:54AM BY EMMA SAGASTUME MA, OFFICE VISIT;DR VINCENT JULIAN TURKISH/NAMRATA RINE Not Available Not Available Not Available olanzapin e 10 mg tablet Take 1 tablet every day by oral route at bedtime for 30 days. 09/30 completed Not Available Not Available Not Available metronida zole 500 mg tablet THREE TIMES DAILY 03/24 completed RECORDED 03/24/20 12 10:00AM BY PER DESOUZA, MEDICATI ON AUTO-PALOMO CTIVATIO N; Not Available Not Available Not Available oxcarbaze pine 300 mg tablet Take 1.5 tablets every day by oral route for 30 days. 05/16 completed Not Available Not Available Not Available acetamino phen 300 mg-codein e 30 mg tablet Take 1 tablet 3 times a day by oral route. 08/03 completed Not Available Not Available Not Available ciproflox acin 250 mg tablet Take 1 tablet every 12 hours by oral route for 7 days. 11/05 completed Not Available Not Available Not Available ciproflox acin 500 mg tablet BID 11/10 completed RECORDED 11/17/19 12 9:28AM BY PREM Amaro MD, MEDICATI ON AUTO-PALOMO CTIVATIO N; Not Available Not Available Not Available sulfameth oxazole 800 mg-trimet hoprim 160 mg tablet Take 1 tablet twice a day by oral route for 3 days. 05/16 completed Not Available Not Available Not Available aspirin 81 mg tablet,de layed release TAKE 1 TABLET DAILY 07/02 completed Not Available Not Available Not Available tramadol 50 mg tablet Take 2 tablets every 6 hours by oral route. 2013 active Not Available Not Available Not Avai lable glyburide 2.5 mg-metfor min 500 mg tablet BID 2007 active RECORDED 08/05/19 08 10:32AM BY KEVIN BYRD MD, ANNOTATI ON/DAYNE DUM; Not Available Not Available Not Available Macrobid 100 mg capsule Take 1 capsule every 12 hours by oral route for 7 days. 09/30 completed Not Available Not Available Not Available meloxicam 7.5 mg tablet Take 1 tablet every day by oral route. 09/30 completed Not Available Not Available Not Available oxycodone -acetamin ophen 5 mg-325 mg tablet active Not Available Not Available Not Available hydromorp jazlyn 2 mg tablet active Not Available Not Available Not Available citalopra m 20 mg tablet Take 1 tablet every day by oral route as directed for 30 days. active Not Available Not Available No t Available famotidin e 20 mg tablet active Not Available Not Available Not Available methocarb eddie 750 mg tablet Take 1 tablet 3 times a day by oral route as directed for 10 days. 02/19 completed Not Available Not Available Not Available Humalog U-100 Insulin 100 unit/mL subcutane ous solution Inject 6 units by subcutan eous route for 1 day. 02/25 completed Administ ered in office by mikayla Carson, 6 units insulin humalog SC to right abd. Not Available Not Available Not Available phenazopy ridine 100 mg tablet 05/16 completed Not Available Not Available Not Available benzonata te 100 mg capsule THREE TIMES DAILY 02/11 completed RECORDED 02/22/20 08 8:45AM BY NATE ALVARADO, MEDICATI ON AUTO-PALOMO CTIVATIO N; Not Available Not Available Not Available simvastat in 20 mg tablet TAKE 1 TABLET DAILY active Not Available Not Available No t Available fluconazo le 50 mg tablet 05/16 completed Not Available Not Available Not Available metformin 1,000 mg tablet TWO TIMES DAILY 01/20 completed KARASCON Y Not Available Not Available Not Available dexametha sone 4 mg tablet active Not Available Not Available Not Available diphenhyd ramine 25 mg tablet EVERY 4 HOURS PRN 07/17 completed RECORDED 08/11/19 10 12:51PM BY MARYBETH GRIFFIN PA-C, MEDICATI ON AUTO-PALOMO CTIVATIO N;SAMPLE Not Available Not Available Not Available polyethyl angelina glycol 3350 powder DAILY 2012 active RECORDED 05/31/19 14 11:05AM BY JESSICA GOMEZ, OFFICE VISIT; Not Available Not Available Not Available docusate sodium 100 mg capsule active Not Available Not Available Not Available gabapenti n 300 mg capsule TAKE 3 CAPSULES BY MOUTH 3 TIMES A DAY active Not Available Not Available No t Available omeprazol e 20 mg capsule,d elayed release 1 tablet daily x 90 days active Not Available Not Available No t Available aspirin 81 mg chewable tablet QD active RECORDED 10/15/19 14 2:52PM BY MALICK HILL MA, ANNOTATI ON/ADDEN DUM; Not Available Not Available Not Available Temovate 0.05 % topical ointment APPLY A THIN LAYER TO THE AFFECTED AREA(S) BY TOPICAL ROUTE 2 TIMES PER DAY 11/13 completed Not Available Not Available Not Available lorazepam 1 mg tablet TAKE 1 TABLET BY MOUTH EVERY 6 TO 8 HOURS FOR 5 DAYS * NEEDED* active Not Available Not Available No t Available [employer] DIRECTED 03/20 completed RECORDED 03/20/20 09 8:59AM BY KEVIN BYRD MD, ANNOTATI ON/ADD DUM;THIS ORDER DISCONTI NUED PER MEDI-SPA N. Not Available Not Available Not Available ibuprofen 600 mg tablet THREE TIMES DAILY, NEEDED 12/28 completed RECORDED 02/05/20 10 9:35AM BY KEVIN BYRD MD, MEDICATI ON AUTO-PALOMO CTIVATIO N; Not Available Not Available Not Available polyethyl angelina glycol 3350 17 gram/dose oral powder active Not Available Not Available Not Available zolpidem 10 mg tablet Take 1 tablet every day by oral route as directed for 30 days. active Not Available Not Available No t Available pioglitaz one 30 mg tablet DAILY 08/29 completed RECORDED 08/30/19 09 9:00AM BY KEVIN BYRD MD, ANNOTATI ON/ADDEN DUM; Not Available Not Available Not Available ketoconaz ole 2 % topical cream BID 11/25 completed RECORDED 11/28/19 08 8:18AM BY NICANOR CARRILLO MD, MEDICATI ON AUTO-PALOMO CTIVATIO N; Not Available Not Available Not Available naphazoli ne 0.025 %-phenira mine 0.3 % eye drops EVERY 6 HRS NEEDED ITCHING 03/27 completed RECORDED 04/01/20 12 7:22AM BY PER DESOUZA, MEDICATI ON AUTO-PALOMO CTIVATIO N; Not Available Not Available Not Available olanzapin e 20 mg tablet Take 1 tablet every day by oral route at bedtime for 30 days. 05/16 completed Not Available Not Available Not Available docusate sodium 100 mg tablet Take 1 tablet twice a day by oral route for 30 days. 09/30 completed Not Available Not Available Not Available glipizide 5 mg tablet TWO TIMES DAILY 01/23 completed RECORDED 11/16/19 14 12:59PM BY PASCUAL PUTANM MA, OFFICE VISIT;DR VINCENT CLIFFORD/ENDOC RINE Not Available Not Available Not Available prazosin 2 mg capsule Take 1 capsule every day by oral route for 30 days. 08/21 completed Not Available Not Available Not Available albuterol (refill) 90 mcg/actua tion aerosol inhaler FOUR TIMES DAILY, NEEDED 02/04 completed RECORDED 02/05/20 10 11:42AM BY YUDI DUTTON, ANNOTATI ON/DAYNE GUZMAN;THIS ORDER DISCONTI NUED PER MEDI-SPA N. Not Available Not Available Not Available Mapap Arthritis Pain 650 mg tablet,ex tended release TAKE 2 TABLETS BY MOUTH TWICE A DAY 08/03 completed Not Available Not Available Not Available DentaGel 1.1 % 08/21 completed Not Available Not Available Not Available Skelaxin 800 mg tablet Take 1 tablet 3 times a day by oral route po. 02/01 completed Not Available Not Available Not Available metformin ER 1,000 mg tablet,ex tended release 24hr (osmotic) active Not Available Not Available No t Available metformin ER 500 mg tablet,ex tended release 24hr (osmotic) DAILY 2011 active RECORDED 05/31/19 14 11:05AM BY JESSICA GOMEZ, OFFICE VISIT;DR VINCENT CLIFFORD/ENDOC RINE Not Available Not Available Not Available duloxetin e 30 mg capsule,d elayed release 04/10 completed Not Available Not Available Not Available duloxetin e 60 mg capsule,d elayed release 04/10 completed Not Available Not Available Not Available Cymbalta 20 mg capsule,d elayed release Take 1 capsule twice a day by oral route. 04/10 completed Not Available Not Available Not Available OneTouch UltraSoft Lancets active Not Available Not Available Not Available Vesicare 10 mg tablet Take 1 tablet every day by oral route for 30 days. 08/21 completed Not Available Not Available Not Available Lyrica 150 mg capsule Take 1 capsule twice a day by oral route. active Not Available Not Available No t Available losartan 100 mg-hydroc hlorothia zide 12.5 mg tablet active Not Available Not Available No t Available lancets misc. TID 02/04 completed RECORDED 02/05/20 10 11:42AM BY RICK GUERRIER ON/ADDEN DUM;THIS ORDER DISCONTI NUED PER MEDI-SPA N. Not Available Not Available Not Available Glucomete r Elite Test TID 05/28 completed RECORDED 05/28/19 12 3:05PM BY RICK GUERRIER ON/ADDEN DUM;THIS ORDER DISCONTI NUED PER MEDI-SPA N. Not Available Not Available Not Available lancets THREE TIMES DAILY 05/28 completed RECORDED 05/28/19 12 3:04PM BY RICK GUERRIER ON/ADDEN DUM; Not Available Not Available Not Available Aspirin EC DAILY 03/18 completed RECORDED 03/18/20 13 11:46AM BY RICK GUERRIER/ADDEN DUM; Not Available Not Available Not Available glipizide 2.5 1 po qd 01/06 completed Not Available Not Available Not Available Pen Coleman THREE TIMES DAILY 05/28 completed RECORDED 05/28/19 12 3:04PM BY RICK GUERRIER ON/ADDEN DUM; Not Available Not Available Not Available BD Insulin Syringe Ult-Fine II 1 mL 31 gauge x 5/16 active Not Available Not Available Not Available FreeStyle [place] kit QD active Not Available Not Available Not Available FreeStyle Lite Strips active Not Available Not Available Not Available Humalog KwikPen (U-100) Insulin 100 unit/mL subcutane ous Inject 25 units 3 times a day by subcutan eous route as directed . active Not Available Not Available No t Available Chantix Continuin g Month Box 1 mg tablet Take 1 tablet twice a day by oral route for 30 days. 2017 active Not Available Not Available Not Francisco freeman Chantix Starting Month Box 0.5 mg (11)-1 mg (42) tablets in dose pack TAKE PER PACKAGE DIRECTIO NS 2017 active Not Available Not Available Not Avai lable BD Insulin Syringe Ultra-Fin e 1 mL 31 gauge x 09/16 active Not Available Not Available Not Available Tresiba FlexTouch U-100 insulin 100 unit/mL (3 mL) subcutane ous pen Inject 44 units every day by subcutan eous route as directed . 11/16 completed Not Available Not Available Not Available Fluarix Quad 4901-9433 (PF) 60 mcg (15 mcg x 4)/0.5 mL IM syringe 05/16 completed Not Available Not Available Not Available Vitals Date Recorded Body height Oxygen saturation Oxygen saturation in Arterial blood by Pulse oximetry Heart rate Body temperature Body weight Body mass index (BMI) Systolic blood pressure Diastolic blood pressure Provider Name and Address Organization Details Last Updated DateTime 7 167.64 cm 98 % 98 % 89 /min 98.3 [degF] 471633. 31 g 35.9 kg/m2 119 mm[Hg] 63 mm[Hg] Jessica Gomez [facility] [place] 7 10:23:05 Date Recorded Body height Body mass index (BMI) Body weight Heart rate Oxygen saturation Oxygen saturation in Arterial blood by Pulse oximetry Body temperature Systolic blood pressure Diastolic blood pressure Provider Name and Address Organization Details Last Updated DateTime 7 167.64 cm 35 kg/m2 48493.5 4 g 103 /min 97 % 97 % 98 [degF] 134 mm[Hg] 78 mm[Hg] Iveth Sorensen [facility] [place] 7 14:41:13 Date Recorded Body height Body mass index (BMI) Body weight Heart rate Oxygen saturation Oxygen saturation in Arterial blood by Pulse oximetry Body temperature Systolic blood pressure Diastolic blood pressure Provider Name and Address Organization Details Last Updated DateTime 7 167.64 cm 35.2 kg/m2 16125.8 4 g 71 /min 99 % 99 % 97.1 [degF] 127 mm[Hg] 81 mm[Hg] Dyan Braun MA [facility] 7 09:35:08 Date Recorded Body height Body mass index (BMI) Body weight Oxygen saturation Oxygen saturation in Arterial blood by Pulse oximetry Heart rate Systolic blood pressure Diastolic blood pressure Provider Name and Address Organization Details Last Updated DateTime 8 167.64 cm 35.6 kg/m2 43445.4 2 g 97 % 97 % 85 /min 122 mm[Hg] 77 mm[Hg] Dyan Braun MA [facility] 8 10:02:08 Date Recorded Body height Body mass index (BMI) Body weight Body temperature Oxygen saturation Oxygen saturation in Arterial blood by Pulse oximetry Heart rate Systolic blood pressure Diastolic blood pressure Provider Name and Address Organization Details Last Updated DateTime 8 167.64 cm 35.1 kg/m2 44797.3 4 g 97.4 [degF] 96 % 96 % 85 /min 122 mm[Hg] 78 mm[Hg] Wen Irizarry [facility] 8 09:26:56 Social History Question Answer Notes LastModified by Organizat ion Details LastModified Time Tobacco Smoking Status Current Every Day Smoker Patient did quit, after accident she started again Emma emmanuel [facility] 11/16/2014 12:59:47 Do You Have An Advance Directive? No Information not available 12/14/2015 What Is Your Level Of Alcohol Consumption? None [email or web address] Information not available 11/22/2013 Is Blood Transfusion Acceptable In An Emergency? Yes Information not available 11/16/2014 What Is Your Level Of Caffeine Consumption? Occasional Mostly Coffee Sometimes Soda [email or web address] Information not available 11/22/2013 How Much Tobacco Do You Chew? None [email or web address] Information not available 11/22/2013 Are You Currently Employed? No Information not available 11/16/2014 Are You Deaf Or Do You Have Serious Difficulty Hearing? No Information not available 11/22/2013 What Type Of Diet Are You Following? DIABETIC Information not available 11/16/2014 Which Illicit Or Recreational Drugs Have You Used? N/A Information not available 11/16/2014 Have There Been Any Changes To Your Family Or Social Situation? No [email or web address] Information not available 11/22/2013 Are There Any Guns Present In Your Home? No [email or web address] Information not available 11/22/2013 Single Or Multi-level Home/work? Single Level Home [email or web address] Information not available 11/22/2013 Legally Blind In One Or Both Eyes? No Information not available 11/22/2013 Live Alone Or With Others? Alone Information not available 11/22/2013 Do You Take Precautions To Prevent Distracted Driving? Yes Information not available 08/03/2017 How Often Do You Need To Have Someone Help You When You Read Instructions, Pamphlets, Or Other Written Material From Your Doctor Or Pharmacy? Never Information not available 12/14/2015 Have You Served In The ? No Information not available 08/03/2017 Marital Status [email or web address] Informatio n not available 11/22/2013 What Was The Date Of Your Most Recent Tobacco Screening? 08/03/2017 Information not available 11/25/2018 How Many Children Do You Have? 2 Dtr Marialuisa And dtr Macho [email or web address] Information not available 12/14/2015 Difficulty Reading? No [email or web address] Information not available 11/22/2013 Seat Belts Used Routinely Yes Information not available 11/16/2014 Smoke Alarm In Home Yes [email or web address] Information not available 11/22/2013 At What Age Did You Start Smoking Tobacco? 16 Information not available 11/16/2014 Are You Passively Exposed To Smoke? No [email or web address] Information not available 11/22/2013 How Much Tobacco Do You Smoke? 1 PPD Information not available 11/16/2014 General Stress Level High Information not available 11/22/2013 Do You Use Any Illicit Or Recreational Drugs? No Information not available 11/22/2013 Do You Use Sunscreen Routinely? No Information not available 11/16/2014 How Many Years Have You Smoked Tobacco? 20 [email or web address] Information not available 11/22/2013 Difficulty Watching TV? No [email or web address] Information not available 11/22/2013 Sex: Unknown Functional Status Question Answer Note LastModified by Organizat ion Details LastModified Time Do you have difficulty walking or climbing stairs? Yes Information not available 11/22/2013 Difficulty driving at night? No [email or web address] Information not available 11/22/2013 Do you have difficulty doing errands alone? No Information not available 11/22/2013 Are you able to care for yourself? Yes Marialuisa is proxy Information not available 12/14/2015 Do you have difficulty dressing or bathing? No [email or web address] Information not available 11/22/2013 What is your exercise level? None Information not available 11/16/2014 Mental Status Question Answer Note LastModified by Organization D etails LastModified Time Do you have difficulty concentrating, remembering or making decisions? No [email or web address] Information no t available 11/22/2013 Family History Relationship Description Onset Age of this Age Resolved Age Notes LastModified by Organization Details LastModified Time Mother Diabetes mellitus [email or web address] Not available 09/2015 12:22:09 Father Heart disease [email or web address] Not available 09/2015 12:22:10 Medical History Condition Response Coronary Artery Disease N Other Y Gout N Kidney Stones N Blood Diseases N Hyperthyroidism N Breast Cancer N mrsa exposure N Hypothyroidism N Lung Disease N COPD N Depression Y Developmental or Behavioral Disorders N Defects or Inherited Disease N Breast Problem N Anesthesia Complications N Headaches/Migraines N Anxiety Disorder N Varicose Veins N Muscle, Joint, or Bone Problems Y Obesity N Vision or Eye Problems N Arthritis N Head Injury/Concussion N Infertility N Polyps N Mental Disorder N Congenital Anomalies N Acid Reflux (GERD) N Cancer N Stroke N ADHD N Endometriosis N High Cholesterol Y Liver Disease N Fibromyalgia N Headaches N Kidney Disease N Heart Problems N Ear or Hearing Problems N Hospitalizations N Thyroid Problems N GI Problems N Developmental Delay N Acne N Skin Problems N Eating Disorder N Anemia N Constipation N Bladder Problems N Mental Illness N Ovarian Cancer N Diabetes Y Bedwetting N Blood Transfusions N Seizures/Epilepsy N Heart Problems/Murmur N Tuberculosis N AIDS/HIV N Congestive Heart Failure (CHF) N Eczema N Diverticulitis N Abuse/Domestic Violence N Asthma N Allergies N Reflux/GERD N Hepatitis N Heart Disease N Pulmonary Embolism N Hypertension Y Chicken Pox N Autism Spectrum Disorder (ASD) N Osteoporosis N Gynecological History Statement/Question Response Date of Last Pap Smear 03/17/2012 Most Recent Mammogram 08/11/2017 Obstetrics History GPAL:G 0 P 0 0 0 0 Immunizations Vaccine Type Date Status Provider Name and Address Organization Details Recorded Time Influenza, split virus, trivalent, PF 02/01/2015 completed Thalia Alvarez null, [facility] 08/11/2017 14:05:20 pneumococcal polysaccharide PPV23 04/15/2014 completed Thalia Alvarez null, [facility] 08/11/2017 14:05:20 Influenza, split virus, trivalent, preservative 01/23/2016 completed Thalia Alvarez null, [facility] 08/11/2017 14:05:20 Tdap 08/05/2017 completed Thalia Alvarez null, [facility] 08/11/2017 14:05:20 Influenza, split virus, quadrivalent, PF 02/19/2017 completed Not Available [facility] 05/21/2019 02:22:13 pneumococcal polysaccharide PPV23 12/01/2006 completed Thalia Alvarez null, [facility] 08/11/2017 14:05:20 Influenza, split virus, trivalent, preservative 05/13/2007 completed Thalia Alvarez null, [facility] 08/11/2017 14:05:20 Influenza, split virus, trivalent, preservative 01/28/2008 completed Thalia Alvarez null, [facility] 08/11/2017 14:05:20 Tdap 02/01/2008 completed Thalia Alvarez null, [facility] 08/11/2017 14:05:20 Influenza, split virus, trivalent, preservative 04/23/2010 completed Thalia Alvarez null, [facility] 08/11/2017 14:05:20 Influenza, split virus, trivalent, preservative 02/02/2012 completed Thalia Alvarez null, [facility] 08/11/2017 14:05:20 Influenza, split virus, trivalent, preservative 03/03/2013 [facility] [place] [facility] 14:05:20 Past Encounters Encounter ID Performer Location Encounter Start Date Encounter Closed Date Diagnosis/Indication Diagnosis SNOMED-CT Code Diagnosis ICD10 Code [id number] [address] [place] [address] 11/22/2013 09:54:55 11/22/2013 11:27:21 Adult health examination 391227424 Diabetes mellitus 474377 09 Low back pain 842563590 Essential hypertension 07054116 Hyperlipidemia 02181524 Gastroesop hageal reflux disease 947348813 [id number] autoEComm erce [address] [facility] [place] [address] 04/23/2010 00:00:00 [id number] autoEComm erce [address] [facility],[address] [place] [address] 04/23/2010 00:00:00 [id number] autoEComm erce [address] [facility],[address] [place] [address] 04/23/2010 00:00:00 [id number] autoEComm erce [address] [facility],[address] [place] [address] 09/27/2010 00:00:00 [id number] autoEComm erce [address] [facility],[address] [place] [address] 10/22/2010 00:00:00 [id number] autoEComm erce [address] [facility],[address] [place] [address] 10/22/2010 00:00:00 [id number] autoEComm erce [address] [facility],[address] [place] [address] 04/29/2011 00:00:00 [id number] autoEComm erce [address] [facility],[address] [place] [address] 04/29/2011 00:00:00 [id number] autoEComm erce [address] [facility],[address] [place] [address] 06/21/2011 00:00:00 [id number] [address]Comm erce [address] [place] [address] 08/27/2011 00:00:00 [id number] auto[facility]Comm erce [address] [place] [address] 08/27/2011 00:00:00 [id number] auto[facility]Comm erce [address] [place] [address] 10/28/2011 00:00:00 [id number] autoEComm erce [address] [place] [address] 10/28/2011 00:00:00 [id number] autoEComm erce [address] [place] [address] 10/28/2011 00:00:00 [id number] autoEComm erce [address] [place] [address] 10/28/2011 00:00:00 [id number] autoEComm erce [address] [place] [address] 11/01/2011 00:00:00 [id number] autoEComm erce [address] [place] [address] 11/01/2011 00:00:00 [id number] autoEComm erce [address] [place] [address] 11/01/2011 00:00:00 [id number] autoEComm erce [address] [place] [address] 11/01/2011 00:00:00 [id number] autoEComm erce [address] [place] [address] 11/17/2011 00:00:00 [id number] autoEComm erce [address] [place] [address] 11/17/2011 00:00:00 [id number] autoEComm erce [address] [place] [address] 11/17/2011 00:00:00 [id number] autoEComm erce [address] [place] [address] 11/17/2011 00:00:00 [id number] autoEComm erce [address] [place] [address] 03/17/2012 00:00:00 [id number] autoEComm erce [address] [place] [address] 03/17/2012 00:00:00 [id number] autoEComm erce [address] [place] [address] 03/17/2012 00:00:00 [id number] autoEComm erce [address] [place] [address] 05/11/2012 00:00:00 [id number] autoEComm erce [address] [place] [address] 06/24/2012 00:00:00 [id number] autoEComm erce [address] [place] [address] 06/24/2012 00:00:00 [id number] autoEComm erce [address] [place] [address] 06/24/2012 00:00:00 [id number] autoEComm erce [address] [place] [address] 07/24/2012 00:00:00 [id number] autoEComm erce [address] [place] [address] 07/24/2012 00:00:00 [id number] autoEComm erce [address] [place] [address] 07/24/2012 00:00:00 [id number] autoEComm erce [address] [place] [address] 07/24/2012 00:00:00 [id number] autoEComm erce [address] [place] [address] 11/09/2012 00:00:00 [id number] autoEComm erce [address] [place] [address] 11/09/2012 00:00:00 [id number] autoEComm erce [address] [place] [address] 03/29/2013 00:00:00 [id number] autoEComm erce [address] [place] [address] 03/29/2013 00:00:00 [id number] autoEComm erce [address] [place] [address] 03/29/2013 00:00:00 [id number] autoEComm erce [address] [place] [address] 05/31/2013 00:00:00 [id number] autoEComm erce [address] [place] [address] 05/31/2013 00:00:00 [id number] autoEComm erce [address] [place] [address] 05/31/2013 00:00:00 [id number] autoEComm erce [address] [place] [address] 05/31/2013 00:00:00 [id number] [address]EComm erce [address] [place] [address] 10/10/2013 00:00:00 [id number] [employer] [address] [place] [address] 10/10/2013 00:00:00 [id number] [employer] [address] [place] [address] 10/10/2013 00:00:00 [id number] [employer] [address] [place] [address] 10/10/2013 00:00:00 [id number] [employer] [address] [place] [address] 11/15/2013 00:00:00 [id number] [employer] [address] [place] [address] 11/15/2013 00:00:00 [id number] [employer] [address] [place] [address] 11/15/2013 00:00:00 [id number] [employer] [address] [place] [address] 2 11/15/2013 00:00:00 [id number] [employer] [address] [facility] [address] [place] [address] 12/01/2006 00:00:00 [id number] [employer] [address] [facility] [address] [place] [address] 2 12/01/2006 00:00:00 [id number] [employer] [address] [facility] [address] [place] [address] 12/01/2006 00:00:00 [id number] [employer] [address] [facility],[address] [place] [address] 12/15/2006 00:00:00 [id number] [employer] [address] [place] [address] 05/06/2007 00:00:00 [id number] [employer] [address] [place] [address] 05/06/2007 00:00:00 [id number] [employer] [address] [facility] [address] [place] [address] 2 08/05/2007 00:00:00 [id number] [employer] [address] [facility] [address] [place] [address] 08/05/2007 00:00:00 [id number] [employer] [address] [place] [address] 2 08/05/2007 00:00:00 [id number] [employer] [address] [place] [address] 2 11/02/2007 00:00:00 [id number] [employer] [address] [place] [address] 2 11/19/2007 00:00:00 [id number] [employer] [address] [place] [address] 2 11/19/2007 00:00:00 [id number] [employer] [address] [place] [address] 11/19/2007 00:00:00 [id number] [employer] [address] [facility],[address] [place] [address] 11/19/2007 00:00:00 [id number] [employer] [address] [facility],[address] [place] [address] 12/03/2007 00:00:00 [id number] [employer] [address] [facility] [address] [place] [address] 12/03/2007 00:00:00 [id number] [employer] [address] [facility],[address] [place] [address] 2 12/03/2007 00:00:00 [id number] [employer] [address] [facility],[address] [place] [address] 12/03/2007 00:00:00 [id number] [employer] [address] [facility] [address] [place] [address] 01/28/2008 00:00:00 [id number] [employer] [address] [facility],[address] [place] [address] 01/28/2008 00:00:00 [id number] [employer] [address] [place] [address] 01/28/2008 00:00:00 [id number] [employer] [address] [place] [address] 02/01/2008 00:00:00 [id number] [employer] [address] [place] [address] 2 05/30/2008 00:00:00 [id number] [employer] [address] [place] [address] 05/30/2008 00:00:00 [id number] [employer] [address] [place] [address] 05/30/2008 00:00:00 [id number] [employer] [address] [facility] [address] [place] [address] 05/30/2008 00:00:00 [id number] [employer] [address] [place] [address] 08/29/2008 00:00:00 [id number] [employer] [address] [facility] [address] [place] [address] 08/29/2008 00:00:00 [id number] [employer] [address] [facility],[address] [place] [address] 08/29/2008 00:00:00 [id number] [employer] [address] [place] [address] 08/29/2008 00:00:00 [id number] [employer] [address] [place] [address] 03/20/2009 00:00:00 [id number] [employer] [address] [facility] [address] [place] [address] 03/20/2009 00:00:00 [id number] [employer] [address] [facility],[address] [place] [address] 03/20/2009 00:00:00 [id number] [employer] [address] [facility],[address] [place], [place] [address] 03/20/2009 00:00:00 [id number] [employer] [address] [facility],[address] [place], [place] [address] 07/11/2009 00:00:00 [id number] [employer] [address] [facility],[address] [place] [address] 07/11/2009 00:00:00 [id number] [employer] [address] [facility],[address] [place] [address] 07/11/2009 00:00:00 [id number] [employer] [address] [facility],[address] [place] [address] 12/18/2009 00:00:00 [id number] Aleida Van RN Main Office [address] [address] [place] [address] 02/24/2014 15:25:31 02/24/2014 16:22:20 Diabetes mellitus 18529694 Essential hypertension 37527429 [id number] Dyan Braun MA Main Office [address] [address] [place] [address] 04/19/2014 12:44:50 04/19/2014 13:33:59 Acute vaginitis 28518346 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 Follow-up encounter 3909 47135 Essential hypertension 35577524 Diabetes mellitus 433553 09 [id number] [facility] Main Office [address] [address] [place] [address] 05/29/2014 11:23:28 05/29/2014 12:09:24 Essential hypertension 55917391 Obesity 370977329 Renal diso rder due to type 2 diabetes mellitus 584745735 Degenerati on of lumbosacral intervertebral disc 06440496 Hyperlipidemia 71949344 [id number] Kevin evans Main Office [address] [facility] [address] [place] [address] 11/16/2014 12:38:15 11/16/2014 13:41:48 Adult health examination 412612381 Major depr essive disorder 993584855 Renal diso rder due to type 2 diabetes mellitus 096661160 Essential hypertension 37530546 [id number] Kevin evans Main Office [address] [address] [place] [address] 03/20/2015 15:28:47 03/20/2015 16:09:41 Pain in pelvis 47848938 R10.2 Leukocytosis 299890094 D 72.829 Steatosis of liver 25878 1007 K76.0 407010 Kevin BanegasMaida evans Main Office [address] [address] [place] [address] 05/24/2015 13:00:22 05/24/2015 14:12:21 Degeneration of lumbosacral intervertebral disc 93672718 M51.37 Shoulder joint pain 2679 25951 M25.512 Chronic pain 98245057 G8 9.29 Major depr essive disorder 399169081 F32.9 Renal diso rder due to type 2 diabetes mellitus 900958076 E11.29 [id number] Kevin AcostaChinmayMaida evans Main Office [address] [address] [place] [address] 07/03/2015 08:40:32 07/03/2015 09:28:06 Constipation 51452145 K59.00 Chronic pain 73562259 G8 9.29 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 911610069 E11.40 Urinary incontinence 165 412390 R32 Vaginitis and vulvovaginitis 175066558 N76.0 [id number] Kevin BanegasMaida evans Main Office [address] [address] [place] [address] 08/23/2015 10:36:51 08/23/2015 12:02:34 Lateral epicondylitis 407075828 M77.11 [id number] Gabriele Patel MD Main Office [address] [address] [place] [address] 09/15/2015 10:33:07 09/15/2015 11:53:40 Dysuria 48201645 R30.0 Renal diso rder due to type 2 diabetes mellitus 829918221 E11.22 [id number] Kevin AcostaNela evans Main Office [address] [address] [place] [address] 11/06/2015 11:15:55 11/06/2015 12:11:54 Edema of the upper extremity 308698108 R60.0 Major depr essive disorder 152544920 F33.9 Essential hypertension 63772072 I10 Chronic pain 62624868 G8 9.29 [id number] Kevin evans Main Office [address] [facility] [address] [place] [address] 12/14/2015 13:25:51 12/14/2015 14:48:40 Adult health examination 860023059 Z00.00 Renal diso rder due to type 2 diabetes mellitus 679556521 E11.22 N18.2 Degenerati on of lumbosacral intervertebral disc 32573980 M51.37 Chronic pain 41650201 G8 9.29 Major depr essive disorder 303756743 F33.9 [id number] Kevin evans Main Office [address] [facility] [address] [place] [address] 05/16/2016 14:15:45 05/16/2016 15:50:32 Neck pain 46958923 M54.2 Major depr essive disorder 732010967 F32.9 [id number] Shelile Chapman Main Office [address] [facility] [address] [place] [address] 08/21/2016 08:46:41 08/21/2016 09:49:52 Chronic pain 44691322 G89.29 Chronic ki dney disease stage 1 506371706 N18.1 Renal diso rder due to type 2 diabetes mellitus 552089981 E11.22 Hyperlipidemia 61319222 E78.5 Tobacco de pendence syndrome 15505595 F17.290 Chronic pain syndrome 37 6718266 G89.4 Hypertensi ve renal disease 46138391 I12.9 [id number] Kevin evans Main Office [address] [facility] [address] [place] [address] 09/19/2016 10:36:47 09/19/2016 11:34:36 Dysuria 05298032 R30.0 [id number] Kevin evans Main Office [address] [facility] [address] [place] [address] 09/26/2016 16:26:36 09/26/2016 17:08:20 [id number] Kevin evans Main Office [address] [address] [place] [address] 09/30/2016 10:13:28 09/30/2016 10:53:18 Urinary tract infectious disease 24379840 N39.0 Urinary incontinence 165 626795 R32 Uncontroll ed type 2 diabetes mellitus 300806763 E11.65 Essential hypertension 69468642 I10 Acute vaginitis 59321489 N76.0 [id number] Kevin evans Main Office [address] [address] [place] [address] 01/06/2017 14:04:42 01/06/2017 15:24:15 Lumbar radiculopathy 766209546 M54.16 [id number] Kevin BanegasMaida evans Main Office [address] [address] [place] [address] 02/19/2017 09:25:09 02/19/2017 10:09:46 Needs influenza immunization 973268066 Z23 Urinary incontinence 165 412735 R32 [id number] Kevin ElsyChinmayMaida evans Main Office [address] [address] [place] [address] 08/03/2017 09:45:53 08/03/2017 10:34:19 Adult health examination 062744215 Z00.00 Screening for malignant neoplasm of breast 372031909 Z12.39 Screening for malignant neoplasm of cervix 073444639 Z12.4 Administra tion of viral vaccine 83324775 Z23 Eczema 46065936 L30.9 Uncontroll ed type 2 diabetes mellitus 551013112 E11.65 Major depr essive disorder 179900459 F33.9 [id number] Main Office [address] [address] [place] [address] 11/16/2017 08:53:08 11/16/2017 10:19:36 Uncontrolled type 2 diabetes mellitus 618940404 E11.65 Renal diso rder due to type 2 diabetes mellitus 932324447 E11.22 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 847061048 E11.49 Hyperlipidemia 07740591 E78.00 Essential hypertension 30055479 I10 Major depr essive disorder 716534420 F32.9 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 63856764 F51.05 F99 Tobacco user 461443151 Z 72.0 Body mass index 30+ - obesity 702273709 E66.01 Z68.35 Chronic ki dney disease stage 1 000899636 N18.1 Health Concerns Section Related Observation LastModified by Organization Detai ls LastModified Time None Recorded Concern Status LastModified by Organization Details LastModified Time None Recorded Advance Directives Directive N: Payers Encounter Date Sequence Insurance Name Policy Number Policy Cordero Covered Member ID Cordero Member ID Guarantor Name 09/30/2016 1 [place] [employer] Mabeline Quick Buck [id number] Mabeline Quick Buck 09/30/2016 2 [place] Mabeline Quick-Pal ob[place] [id number] Mabeline Quick Buck 01/06/2017 1 [place] [employer] Mabeline Quick Buck [id number] Mabeline Quick Buck 01/06/2017 2 [place] Mabeline Quick-Pal [place] [id number] Mabeline Quick Buck 02/19/2017 1 [place] [employer] Mabeline Quick Buck [id number] Mabeline Quick Buck 02/19/2017 2 [place] Mabeline Quick-Pal [place] [id number] Mabeline Quick Buck 08/03/2017 1 [place] [employer] Mabeline Quick Buck [id number] Mabeline Quick Buck 08/03/2017 2 [place] Mabeline Quick-Pal [place] [id number] Mabeline Quick Buck 11/16/2017 1 [place] [employer] Mabeline Quick Buck [id number] Mabeline Quick Buck 11/16/2017 2 [place] Mabeline Quick-Pal [place] [id number] Mabeline Quick Buck Notes Date Note Type Note Provider Name and Address Organization Details Recorded Time 09/30/2016 text/html Hospitalization Contact RecordReported bypatient.Follow UpHospital: [facility]; admit date: (Please enter in format 'MM/DD/YYYY') (09/21/2016); date of discharge: (Please enter in format 'MM/DD/YYYY') (09/23/2016); date of contact: (Please enter in format 'MM/DD/YYYY') (09/26/2016); Hospital Course 51-year-old female with a history of hypertension, hyperlipidemia, lumbar radiculopathy, type 2 diabetes mellitus, chronic low back pain presented with abdominal pain and dysuria Abdominal pain: Secondary to Klebsiella pneumonia UTI Failed outpatient therapy treated with ceftriaxone 3 more days of Doxycycline blood cultures are negative Hypertension:stable irbesartan/hydrochloro thiazide at home Diabetes mellitus: uncontrolled Patient is allergic to insulin Continue with the metformin thousand milligrams 2 times a day, glipizide dose changed to 12.5mg BID mild AG resolved with iv fluids Lumbar radiculopathy: Gabapentin 300 mg 3 times a day Smoking cessation counseling NAD Obese no pallor/icterus abdomin soft, nt/nd, no g/r aox3 no gross deficits Discharge Plan Diet/Activity/Patient Education/Follow Up Patient was given the following educational materials: BLADDER INFECTION, Female (Adult), BLADDER INFECTION, Female (Adult). Follow Up with: Kevin Mabry Within 1 to 2 weeks. Discharge Disposition Discharge: home. Sandra#1 s/w pt she has an ap. booked with PM on thursday09/30/2016Notes: Presents in follow-up as below has completed antibiotics, also had IV abx, urinary sx have resolved but now she has some vaginal itching. ? yeast. She also has a urology appt today at 2:40. She is feeling much better today. She is taking all of her other meds. Notes she is not taking humalog as she feels she was retaining fluid, she saw Dr. Muse's PA she will have ? insulin pump for 5 days the have a recheck, feels edema has resolved. glipizide was increased. Kevin emmanuel [facility] 09/30/2016 17:31:32 01/06/2017 text/html Generic HPI TemplateReported bypatient.Notes:left hip/ buttock pain that radiates down leg into toes with numbness and tingling. She feels pain is severe and was going to go to ED. She notes she has had back pain with a UTI before, her urine is yellow but bubbly appearing. She does have DM and endocrine is sending her to [place] for a test as she cannot take insulin. Kevin emmanuel [facility] 01/06/2017 16:37:31 02/19/2017 text/html Urinary FrequencyReported bypatient.Quality:symp toms worse during the day Severity:moderate Alleviating Factors:nothing gives relief; pt notes urinary incontinence. pt has leakage Aggravating Factors:tobacco use; pt quit smoking last year Associated Symptoms:no abdominal pain; no diarrhea; no hesitancy; no vomiting; pt has urine odor when she has UTI/ pt plans for bladder botox. see plan Kevin emmanuel [facility] 02/19/2017 09:59:55 08/03/2017 text/html Medicare Annual Wellness VisitReported bypatient.Diet and Nutrition:discussed portion control; discussed diet improvement Fracture Risk:no history of fractures; no recent explained fracture; no sudden unexplained fractures; no previous musculoskeletal injuries Physical Activity:discussed weightbearing activities; discussed exercise habits Depression Risk:no loss of interest in activities; no significant changes in weight; no sleep disturbances or insomnia; no agitation; no loss of energy; no feelings of worthlessness or guilt; no thoughts of suicide; no history of mood disorders;history of depression; stable on SSRI Orientation:no disorientation to time; no disorientation to date; no disorientation to place Concentration and Memory:no decreased concentrating ability; no memory lapses or loss; does not forget words Speech/Motor difficulties:no speech difficulties; no difficulty expressing formulated concepts; no difficulty with fine manipulative tasks; no difficulty writing/copying; no slowed reaction time; does not knock things over when trying to pick them up Hearing:no loss of hearing Vision:no vision problems Activities of Daily Living:able to bathe with limited or no assistance; able to contol urination and bowels; able to dress with limited or no assistance; able to feed self with limited or no assistance; able to get out of chair or bed with limited or no assistance; able to groom with limited or no assistance; able to toilet with limited or no assistance Instrumental Activities of Daily Living:able to do house work with limited or no assistance; able to grocery shop with limited or no assistance; able to manage medications with limited or no assistance; able to manage money with limited or no assistance; able to prepare meals with limited or no assistance; able to use the phone with limited or no assistance Falls Risk Assessment:no frequent falls while walking; no fall in the past year; no fall since last visit; no dizziness/vertigo Home Safety:use of seatbelts; good lighting in the home Kevin emmanuel [facility] 08/03/2017 10:31:16 11/16/2017 text/html 52 year old fema le for f/u. PT. 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 Sees endo at [facility] and is currently on V-Go pump and CGM with [employer]. A!c today is improved at 10.0% from 11.3% on last visit with endo . PT. has almaz for f/u. PT. has neuropathy. 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 Overdue for diabetic eye exam. REports no vision changes.Major depression. Sees psych and counselor in [place]. On Citalopram 20 mg and Zolpidem for insomnia from them.Chronic pain and neuropathy. WAS ON Lyrica , but discontinued in May.HTN is stable on meds. PT. is overdue for labs.Hyperlipidemia. ON atorvastatin 10 mg. Overdue for labs.TObacco user. 12 or 13 cigarettes per day. STopped in the past with [employer]. Wants to try again. Shellie memanuel [facility] 11/16/2017 14:31:49 OBGyn Episode No OBEpisode recorded.
== END 2024-04-06 09:00 | disposition home or self-care (01) ==
LOC: HO.HOSX 08:59
DX: Z13.89 Encounter for screening for other disorder (principal)

== ENCOUNTER 2024-04-15 05:36 | Day surgery (SDC) | payer OTHER, SELFPAY ==
--- NOTE | 2024-03-16 12:33 | HO.ANESPROP2 ---
Documented by User: Shelby Salinas NP 03/25/24 12:28 HPI - Anesthesia Eval Consult details Narrative: 58yo F for Right Knee Arthroscopy,medial meniscectomy,possible partial lateral meniscectomy, 04/15/24 [facility] Active Problems Active Problems: All Active Problems Obesity (BMI 35.0-39.9 without comorbidity) (Acute) History of carpal tunnel release (Acute) Carpal tunnel syndrome on both sides (Acute) Tear of medial meniscus of right knee (Acute) Left hip pain (Acute) Muscle spasm of back (Acute) Sacroiliac joint pain (Acute) Right knee pain (Acute) Lesion of bone of knee (Acute) Chronic painful diabetic neuropathy (Acute) Uncontrolled diabetes mellitus with hyperglycemia (Acute) Lumbar spondylosis (Acute) Lumbar degenerative disc disease (Acute) Lumbar radiculopathy (Acute) Past Medical History Medical History Tennis elbow MARIAM (obstructive sleep apnea) Vitamin D deficiency Familial hirsutism Hyperlipidemia Microalbuminuria Hypertension Depression Anxiety Hypercholesterolemia Type 2 diabetes mellitus with peripheral neuropathy Lumbar radiculopathy Right leg pain Family History Family History Mother Hypertension Diabetes Father Hypertension Family history of problems with anesthesia: No Surgical History Surgical History Previous back surgery History of carpal tunnel release Hx of tubal ligation History of Problems with Anesthesia: No Social History Social History Household Members Other:: lives only, 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 If so, by whom?: No Are you DNR?: No Advance Directives: No Advance Directives Information Provided: Yes Recently lost weight without trying: No Nutrition Risks: No Nutritional Risk Meds Allergies Allergy/AdvReac Type Severity Reaction Status Date / Time amoxicillin [AMOXICILLIN] Allergy Severe ANAPHYLAXIS Verified 04/15/24 06:24 exenatide [From BYETTA] Allergy Severe ANAPHYLAXIS Verified 04/15/24 06:24 insulin detemir Allergy Severe SORE THROAT Verified 04/15/24 06:24 [From LEVEMIR U-100 INSULIN] insulin glargine Allergy Severe YEAST Verified 04/15/24 06:24 [From LANTUS U-100 INSULIN] INFECTION insulin glulisine Allergy Severe UNKNOWN Verified 04/15/24 06:24 [From APIDRA U-100 INSULIN] insulin lispro Allergy Severe HIVES Verified 04/15/24 06:24 [From HUMALOG U-100 INSULIN] insulin regular Allergy Severe MUSCLE PAIN Verified 04/15/24 06:24 [From NOVOLIN R REGULAR U-100 INSULN] lisinopril Allergy Severe Cough Verified 04/15/24 06:24 penicillin V Allergy Severe Rash Verified 04/15/24 06:24 pioglitazone [From ACTOS] Allergy Severe HIVES Verified 04/15/24 06:24 insulin isophane (NPH) Allergy Intermediate YEAST Verified 03/29/24 14:12 [From HUMULIN N NPH U-100 INFECTION INSULIN] duloxetine [From CYMBALTA] Allergy Unknown UNKNOWN Verified 03/29/24 14:12 tizanidine AdvReac Severe Anxiety Verified 03/29/24 14:12 Home Medications ?Medication ?Instructions ?Recorded ?Confirmed ?Last Taken ?Type aspirin 81 mg tablet,delayed 81 mg PO DAILY 01/26/23 04/15/24 04/10/24 History release atorvastatin 20 mg tablet 20 mg PO DAILY 01/26/23 04/15/24 11/13/23 History citalopram 10 mg tablet (Celexa) 10 mg PO DAILY 01/26/23 04/15/24 Unknown History gabapentin 800 mg tablet 800 mg PO TID 01/26/23 04/15/24 11/13/23 History glipizide 10 mg tablet, extended 10 mg PO BID 01/26/23 04/15/24 11/13/23 History release 24 hr hydroxyzine HCl 25 mg tablet 25 mg PO BID PRN Anxiety 01/26/23 04/15/24 Unknown History losartan 100 mg tablet 100 mg PO DAILY 01/26/23 04/15/24 11/13/23 History metformin 500 mg tablet 1,000 mg PO BID 01/26/23 04/15/24 11/13/23 History ketorolac 0.5 % eye drops 1 drp ophthalmic (eye) DAILY 06/30/23 04/15/24 Unknown History zolpidem 10 mg tablet 10 mg PO BEDTIME PRN Sleep 08/10/23 04/15/24 Unknown History insulin degludec 200 unit/mL (3 100 unit subcut DAILY 11/09/23 04/15/24 11/12/23 21:00 History mL) subcutaneous pen (Tresiba 200 units FlexTouch U-200 insulin) hydrochlorothiazide 12.5 mg tablet 12.5 mg PO DAILY 11/13/23 04/15/24 11/13/23 History insulin aspart U-100 100 unit/mL 80 unit subcut TID 11/13/23 04/15/24 11/12/23 17:00 History (3 mL) subcutaneous pen (Novolog 80 units FlexPen U-100 Insulin aspart) fluoxetine 20 mg capsule 20 mg PO DAILY 12/29/23 04/15/24 Unknown History Exam Pertinent Lab Results Pertinent Lab Results: CBC and BMP from outside facility 07/2023 WNL Assessment and Plan Assessment Anesthesia Assessment: Chart Reviewed Final Anesthetic Review Family History of Problems with Anesthesia: No History of Problems with Anesthesia: No Documented by User: Chelsie Thompson MD 04/15/24 07:29 [facility] Past Medical History Medical History Tennis elbow MARIAM (obstructive sleep apnea) Vitamin D deficiency Familial hirsutism Hyperlipidemia Microalbuminuria Hypertension Depression Anxiety Hypercholesterolemia Type 2 diabetes mellitus with peripheral neuropathy Lumbar radiculopathy Right leg pain Family History Family History Mother Hypertension Diabetes Father Hypertension Surgical History Surgical History Previous back surgery History of carpal tunnel release Hx of tubal ligation Social History Social History Household Members Other:: lives only, 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 If so, by whom?: No Are you DNR?: No Advance Directives: No Advance Directives Information Provided: Yes Recently lost weight without trying: No Nutrition Risks: No Nutritional Risk Meds Allergies Allergy/AdvReac Type Severity Reaction Status Date / Time amoxicillin [AMOXICILLIN] Allergy Severe ANAPHYLAXIS Verified 04/15/24 06:24 exenatide [From BYETTA] Allergy Severe ANAPHYLAXIS Verified 04/15/24 06:24 insulin detemir Allergy Severe SORE THROAT Verified 04/15/24 06:24 [From LEVEMIR U-100 INSULIN] insulin glargine Allergy Severe YEAST Verified 04/15/24 06:24 [From LANTUS U-100 INSULIN] INFECTION insulin glulisine Allergy Severe UNKNOWN Verified 04/15/24 06:24 [From APIDRA U-100 INSULIN] insulin lispro Allergy Severe HIVES Verified 04/15/24 06:24 [From HUMALOG U-100 INSULIN] insulin regular Allergy Severe MUSCLE PAIN Verified 04/15/24 06:24 [From NOVOLIN R REGULAR U-100 INSULN] lisinopril Allergy Severe Cough Verified 04/15/24 06:24 penicillin V Allergy Severe Rash Verified 04/15/24 06:24 pioglitazone [From ACTOS] Allergy Severe HIVES Verified 04/15/24 06:24 insulin isophane (NPH) Allergy Intermediate YEAST Verified 03/29/24 14:12 [From HUMULIN N NPH U-100 INFECTION INSULIN] duloxetine [From CYMBALTA] Allergy Unknown UNKNOWN Verified 03/29/24 14:12 tizanidine AdvReac Severe Anxiety Verified 03/29/24 14:12 Home Medications ?Medication ?Instructions ?Recorded ?Confirmed ?Last Taken ?Type aspirin 81 mg tablet,delayed 81 mg PO DAILY 01/26/23 04/15/24 04/10/24 History release atorvastatin 20 mg tablet 20 mg PO DAILY 01/26/23 04/15/24 11/13/23 History citalopram 10 mg tablet (Celexa) 10 mg PO DAILY 01/26/23 04/15/24 Unknown History gabapentin 800 mg tablet 800 mg PO TID 01/26/23 04/15/24 11/13/23 History glipizide 10 mg tablet, extended 10 mg PO BID 01/26/23 04/15/24 11/13/23 History release 24 hr hydroxyzine HCl 25 mg tablet 25 mg PO BID PRN Anxiety 01/26/23 04/15/24 Unknown History losartan 100 mg tablet 100 mg PO DAILY 01/26/23 04/15/24 11/13/23 History metformin 500 mg tablet 1,000 mg PO BID 01/26/23 04/15/24 11/13/23 History ketorolac 0.5 % eye drops 1 drp ophthalmic (eye) DAILY 06/30/23 04/15/24 Unknown History zolpidem 10 mg tablet 10 mg PO BEDTIME PRN Sleep 08/10/23 04/15/24 Unknown History insulin degludec 200 unit/mL (3 100 unit subcut DAILY 11/09/23 04/15/24 11/12/23 21:00 History mL) subcutaneous pen (Tresiba 200 units FlexTouch U-200 insulin) hydrochlorothiazide 12.5 mg tablet 12.5 mg PO DAILY 11/13/23 04/15/24 11/13/23 History insulin aspart U-100 100 unit/mL 80 unit subcut TID 11/13/23 04/15/24 11/12/23 17:00 History (3 mL) subcutaneous pen (Novolog 80 units FlexPen U-100 Insulin aspart) fluoxetine 20 mg capsule 20 mg PO DAILY 12/29/23 04/15/24 Unknown History Exam Airway Mallampati Class: III TM Dist: <=3cm Neck ROM: Limited Heart: rrr Lungs: cta Assessment and Plan Assessment Anesthesia Assessment: Anesthesia Plan Discussed Final Anesthetic Review NPO: Yes ASA Class: III Final Preanesthetic Review: No Changes in Pt Med Stat, Meds/Allgs Chart Reviewed, Consent Obtained/Reviewed and Anes Risks/Benef Reviewed Patient Risk: Intermediate Procedure Risk: Low Anesthetic Plan Anesthetic Plan: MAC: Disposition: Standard PACU
[2024-04-13 08:23] VITALS: BMI 38.6
[2024-04-15] VITALS (8 sets, daily range): BP systolic 114–163; BP diastolic 70–85; PULSE 80–87; RESP 12–18; TEMP 36.1–36.6; O2SAT 94–97; BMI 38.5
--- OUTSIDE RECORDS SUMMARY | 2024-04-15 05:39 | XMS_ITS | Data Portability ---
Author Organization [facility], Main Office Address [address] [place] [address] Care Team Providers Care Manager Corporate Name Role Phone LIYAH MARTINES Urogynecologist VINCENT MUSE Tape Recording Machine Operator [facility] Pain Management JEANNIE METZ Primary Care Provider [phone] ROXANN SOSA Television News Video Editor [phone] Assessment No assessment recorded. Plan of Treatment Reminders Order Date Submit Date Provider Last Modified By Organization Details Last Modified Time Details Appointments None recorded. Lab microalbum in, urine 2017 018 [facility], [address], [address], [place], [address], 8 14:18:56 hemoglobin A1C, fingerstic k 2017 018 In-Office Order, Internal Use Only DO Not Attach Compendium DO Not Attach Compendium, Do Not Delete/merge, [id number] 8 09:51:21 glucose, fingerstic k, blood 2017 018 In-Office Order, Internal Use Only DO Not Attach Compendium DO Not Attach Compendium, Do Not Delete/merge, [id number] 8 09:51:21 lipid panel, serum 2017 018 [facility], [address], [address], [place], [address], 8 14:47:06 CMP, serum or plasma 2017 018 [facility], [address], [address], [place], [address], 8 14:47:05 Referral urogynecol ogist referral - this pt is at no increased risk for upcoming bladder-tsering tox procedurer on Mar 02, 2017. There are no contraindi cations- Pt feels well and will continue current tx. 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 PT. is on Lyrica. Needs diabetic foot care. 2017 018 [email or web address] Not available 8 10:19:37 diabetic ophthalmol ogy referral - Diabetic eye exam. 2017 018 abigby Not available 9 10:35:[address]/dietiti an referral 2017 018 [email or web address] Not available 8 10:19:37 Procedures None recorded. Surgeries None recorded. Imaging XR, lumbosacra l spine - low back pain with radiculopa thy 2016 017 [facility], [address] [place], [address], 7 15:26:52 XR, sacroiliac joint(s) - left low back pain with radiculopa thy 2016 017 [facility], [address] [place], [address], 7 15:26:53 MAMMO, screening, bilateral - Perform Diagnostic Mammogram and Breast Ultrasound if needed / Perform Ultrasound Guided Aspiration and/or Breast Biopsy if warranted 2017 018 [facility], [address] [place], [address], 8 11:28:39 Medication Orders meloxicam 15 mg tablet 2016 017 [facility] #1130, [phone] [place], [address], 8 09:59:25 methocarba mol 750 mg tablet 2016 017 [facility]1130, [phone] [place], [address], 7 09:36:04 acetaminop hen 300 mg-codeine 30 mg tablet 2016 017 [facility]1130, [phone] [place], [address], 8 09:58:39 Temovate 0.05 % topical ointment 2017 018 csydodalys [facility] #[id number], [address] [place], [address], 8 13:42:34 Chantix Starting Month Box 0.5 mg (11)-1 mg (42) tablets in dose pack 2017 018 [facility]FACE [id number], [address] [place], [address], 8 10:04:23 Chantix Continuing Month Box 1 mg tablet 2017 018 INTERFACE [facility] #[id number], [address] [place], [address], 8 10:04:21 Patient TargetsNo targets recorded. Patient Instructions Encounter Date Encounter Id Patient Instructions Last Modified By Organization Details Last Modified Time 09/30/2016 [id number] Urinary Tract Infection (UTI) in Women: Care Instructions Not available 09/30/2016 14:09:22 Call or return for worsening or concerns [email or web address] Not available 09/30/2016 10:28:38 At [facility] follow up visit, all current and discharge [...] care. [email or web address] Not available 09/30/2016 17:31:22 01/06/2017 [id number] acute low back pain: exercises Not available 01/06/2017 15:45:22 getting back to normal after low back pain: care instructions Not available 01/06/2017 15:45:22 Call or return for worsening or concerns [email or web address] Not available 01/06/2017 15:36:08 I have reviewed the note and agree with the assessment and plan of care. [email or web address] Not available 01/06/2017 16:37:20 08/03/2017 [id number] preventing falls: care instructions mdalessandro Not available 08/03/2017 10:24:23 Cervical Cancer Screening mdalessandro Not available 08/03/2017 10:24:23 11/16/2017 [id number] dash diet: care instructions Not available 11/16/2017 [...] Kevin Burns, Internal Medicine, Encounter Date: 02/19/2017 Commercial Teller Referral for Sc reening for malignant neoplasm of cervix Referring Physician: Kevin Burns, Internal Medicine, Encounter Date: 08/03/2017 Pharmacy Intern Referral for Diso rder of nervous system due to diabetes mellitus Diabetes Mellitus TYpe II with diabetic peripheral neuropathy. PT. is on Lyrica. Needs diabetic foot care. Referring Physician: Jeannie Metz Internal Medicine, Encounter Date: 11/16/2017 Diabetic Ophthalmology Refer ral for Uncontrolled type 2 diabetes mellitus Diabetic eye exam. Referring Physician: Jeannie Metz, Internal Medicine, Encounter Date: 11/16/2017 Armored Truck Driver/dietitian Refer ral for Body mass index 30+ - obesity Referring Physician: Jeannie Metz, Internal Medicine, Encounter Date: 11/16/2017 Results Created Date Observation Date Name Description Value Unit Range Abnormal Flag Note LastModifiedBy Organization Detail LastModifiedTime 09/19/2016 urina lysis , dipst ick Leukocytes Negati ve Not Available In-Office Order Internal Use Only DO Not Attach Compendium DO Not Attach Compendium, Do Not Delete/merge, [id number] 09/19/2016 10:57:50 09/19/2016 urina lysis , dipst ick Nitrite positi ve Not Available In-Office Order Internal Use Only DO Not Attach Compendium DO Not Attach Compendium, Do Not Delete/merge, [id number] 09/19/2016 10:57:50 09/19/2016 urina lysis , dipst ick Urobilinogen .2 Not Available In-Of fice Order Internal Use Only DO Not Attach Compendium DO Not Attach Compendium, Do Not Delete/merge, [id number] 09/19/2016 10:57:50 09/19/2016 urina lysis , dipst [...] 09/19/2016 urina lysis , dipst ick Specific [place] 1.015 Not Available In-Off ice Order Internal [...] Available [facility] [address] [place], [address], 09/20/2016 01:39:07 09/20/19 17 09/20/2016 urina lysis , compl ete sp. gravity 1.015 (1.002 -1.030 ) Not Available [facility] [address] [place], [address], 09/20/2016 01:39:07 09/20/19 17 09/20/2016 urina lysis , compl ete urine pH 6.0 (4.0-8 .0) Not Available [facility] [place], [address], 09/20/2016 01:39:07 09/20/19 17 09/20/2016 urina lysis , compl ete urine albumin NEGATI VE (neg) Not Available [facility] [address] [place], [address], 09/20/2016 01:39:07 09/20/19 17 09/20/2016 urina lysis , compl ete urine glucose 3+ (neg) abnormal Not Available [facility] [address] [place], [address], 09/20/2016 01:39:07 09/20/1909/20/2016 urina lysis , compl ete urine ketones NEGATI VE (neg) Not Available [facility] [address] [place], [address], 09/20/2016 01:39:07 09/20/1909/20/2016 urina lysis , compl ete urine bilirubin NEGATI VE (neg) Not Available [facility] [address] [place], [address], 09/20/2016 01:39:07 09/20/19 17 09/20/2016 urina lysis , compl ete urine hemoglobn 1+ (neg) abnormal Not Available [facility] [address] [place], [address], 09/20/2016 01:39:07 09/20/19 17 09/20/2016 urina lysis , compl ete urine nitrite POSITI VE (neg) abnormal Not Available [facility] [place], [address], 09/20/2016 01:39:07 09/20/19 17 09/20/2016 urina lysis , compl ete urine leukocyte 2+ (neg) abnormal Not Available [facility] [address] [place], [address], 09/20/2016 01:39:07 09/20/19 17 09/20/2016 urina lysis , compl ete urobilinogen NORMAL mg/dL (norm) Not Available [facility] [address] [place], [address], 09/20/2016 01:39:07 09/20/19 17 09/20/2016 urina lysis , compl ete urine WBC's 21 /hpf (0-5) high Not Available [facility] [address] [place], [address], 09/20/2016 01:39:07 09/20/19 17 09/20/2016 urina lysis , compl ete urine RBC's 9 /hpf (<3) high Not Available [facility] [address] [place], [address], 09/20/2016 01:39:07 09/20/19 17 09/20/2016 urina lysis , compl ete bacteria SLIGHT hpf (neg) abnormal Not Available [facility] [address] [place], [address], 09/20/2016 01:39:07 09/20/19 17 09/20/2016 urina lysis , compl ete squamous epith 1 /hpf Not Available [facility] [address] [place], [address], 09/20/2016 01:39:07 09/20/19 17 09/19/2016 cultu re, urine specimen description CLEAN CATCH (URINE ) Not Available [facility] [address] [place], [address], 09/21/2016 10:27:40 09/20/19 17 09/19/2016 cultu re, urine special requests NONE Not Available [facility] [address] [place], [address], 09/21/2016 10:27:40 09/20/19 17 09/21/2016 cultu re, urine culture >100,0 00 COL/ML KLEBSI ANDREA PNEUMO NIAE Not Available [facility] [address], [address], 09/21/2016 10:27:40 09/20/19 17 09/21/2016 cultu re, urine report status FINAL 2016 Not Available [facility] [address] [place], [address], 09/21/2016 10:27:40 09/20/19 17 09/21/2016 cultu re, urine organism ORGANI SM >100,0 00 COL/ML KLEBSI ANDREA PNEUMO NIAE Not Available [facility] [address] [place], [address], 09/21/2016 10:27:40 09/20/19 17 09/21/2016 cultu re, urine method METHOD MIN. INHIB. CONC. (MCG/M L) Not Available [facility] [address] [place], [address], 09/21/2016 10:27:40 09/20/19 17 09/21/2016 cultu re, urine ampicillin AMPICI LLIN RESIST ANT resistant Not Available [facility] [address] [place], [address], 09/21/2016 10:27:40 09/20/19 17 09/21/2016 cultu re, urine ampicillin/s ulbactam AMPICI LLIN/S ULBACT AM SUSCEP TIBLE susceptib le Not Available [facility] [address] [place], [address], 09/21/2016 10:27:40 09/20/19 17 09/21/2016 cultu re, urine amoxicillin/ clavulanic acid AMOXIC ILLIN/ CLAVUL AN SUSCEP TIBLE susceptib le Not Available [facility] [address] [place], [address], 09/21/2016 10:27:40 09/20/19 17 09/21/2016 cultu re, urine cefazolin CEFAZO CLAUDIO SUSCEP TIBLE susceptib le Not Available [facility] [address] [place], [address], 09/21/2016 10:27:40 09/20/19 17 09/21/2016 cultu re, urine cefepime CEFEPI ME SUSCEP TIBLE susceptib le Not Available [facility] [address] [place], [address], 09/21/2016 10:27:40 09/20/19 17 09/21/2016 cultu re, urine ceftriaxone CEFTRI AXONE SUSCEP TIBLE susceptib le Not Available [facility] [address] [place], [address], 09/21/2016 10:27:40 09/20/19 17 09/21/2016 cultu re, urine ciprofloxaci n CIPROF LOXACI N SUSCEP TIBLE susceptib le Not Available [facility] [address] [place], [address], 09/21/2016 10:27:40 09/20/19 17 09/21/2016 cultu re, urine gentamicin GENTAM ICIN SUSCEP TIBLE susceptib le Not Available [facility] [address] [place], [address], 09/21/2016 10:27:40 09/20/19 17 09/21/2016 cultu re, urine levofloxacin LEVOFL OXACIN SUSCEP TIBLE susceptib le Not Available [facility] [address] [place], [address], 09/21/2016 10:27:40 09/20/19 17 09/21/2016 cultu re, urine meropenem MEROPE NEM SUSCEP TIBLE susceptib le Not Available [facility] [address] [place], [address], 09/21/2016 10:27:40 09/20/19 17 09/21/2016 cultu re, urine nitrofuranto in NITROF URANTO IN SUSCEP TIBLE susceptib le Not Available [facility] [address] [place], [address], 09/21/2016 10:27:40 09/20/19 17 09/21/2016 cultu re, urine piperacillin /tazobactam PIPERA CILLIN /TAZOB AC SUSCEP TIBLE susceptib le Not Available [facility] [address] [place], [address], 09/21/2016 10:27:40 09/20/19 17 09/21/2016 cultu re, urine trimeth/sulf amethox TRIMET H/SULF AMETHO X RESIST ANT resistant Not Available [facility] [address] [place], [address], 09/21/2016 10:27:40 09/20/19 17 09/21/2016 cultu re, urine tetracycline TETRAC YCLINE SUSCEP TIBLE susceptib le Not Available [facility] [address], [place], [address], 09/21/2016 10:27:40 11/17/19 18 11/16/2017 gluco se, dejuanalma rstic k, blood Blood Glucose: mg/dl 255 Not Available In-Off ice Order Internal Use Only DO Not Attach Compendium DO Not Attach Compendium, Do Not Delete/merge, [id number] 11/16/2017 09:34:27 11/17/19 18 11/16/2017 hemog lobin A1C, dejuanalma rstic k HA1C 10.0 % 4-6 Not Available In-Office Order Internal Use Only DO Not Attach Compendium DO Not Attach Compendium, Do Not Delete/merge, [id number] 11/16/2017 09:33:53 11/19/19 18 11/18/2017 micro album in, urine micro-albumi n 146.4 mg/L (0-20) high Not Available [facility] [address] [place], [address], 11/18/2017 14:18:56 11/19/19 18 11/18/2017 micro album in, urine malb/creat ratio 130.5 mg/gm (0-20) high Not Available [facility] [address] [place], [address], 11/18/2017 14:18:56 11/19/19 18 11/18/2017 micro album in, urine urine creat for micro albumin 112.2 mg/dL Not Available [facility] [place], [address], 11/18/2017 14:18:56 11/19/19 18 11/18/2017 CMP, serum or plasm a glucose 203 mg/dL (70-99 ) high Not Available [facility] [address] [place], [address], 11/18/2017 14:47:05 11/19/19 18 11/18/2017 CMP, serum or plasm a BUN 13 mg/dL (6-20) Not Available [facility] [address] [place], [address], 11/18/2017 14:47:05 11/19/19 18 11/18/2017 CMP, serum or plasm a creatinine 0.6 mg/dL (0.5-1 .0) Not Available [facility] [address] [place], [address], 11/18/2017 14:47:05 11/19/19 18 11/18/2017 CMP, serum or plasm a sodium 142 mmol/ L (133-1 45) Not Available [facility] [address] [place], [address], 11/18/2017 14:47:05 11/19/19 18 11/18/2017 CMP, serum or plasm a potassium 4.5 mmol/ L (3.6-5 .2) Not Available [facility] [address] [place], [address], 11/18/2017 14:47:05 11/19/19 18 11/18/2017 CMP, serum or plasm a chloride 103 mmol/ L (98-10 7) Not Available [facility] [address] [place], [address], 11/18/2017 14:47:05 11/19/19 18 11/18/2017 CMP, serum or plasm a bicarbonate 29 mmol/ L (22-29 ) Not Available [facility] [address] [place], [address], 11/18/2017 14:47:05 11/19/19 18 11/18/2017 CMP, serum or plasm a anion gap 10 (4-17) Not Available [facility] [address] [place], [address], 11/18/2017 14:47:05 11/19/19 18 11/18/2017 CMP, serum or plasm a albumin 3.9 gm/dL (3.4-4 .8) Not Available [facility] [address] [place], [address], 11/18/2017 14:47:05 11/19/19 18 11/18/2017 CMP, serum or plasm a calcium 9.0 mg/dL (8.6-1 0.5) Not Available [facility] [address] [place], [address], 11/18/2017 14:47:05 11/19/19 18 11/18/2017 CMP, serum or plasm a bilirubin,to julieta 0.2 mg/dL (0-1.2 ) Not Available [facility] [address] [place], [address], 11/18/2017 14:47:11/19/19 18 11/18/2017 CMP, serum or plasm a total protein 6.6 gm/dL (6.2-8 .2) Not Available [facility] [address] [place], [address], 11/18/2017 14:47:05 11/19/19 18 11/18/2017 CMP, serum or plasm a Ag ratio 1.4 Not Available [facility] [address] [place], [address], 11/18/2017 14:47:05 11/19/19 18 11/18/2017 CMP, serum or plasm a AST 12 U/L (0-32) Not Available [facility] [address] [place], [address], 11/18/2017 14:47:05 11/19/19 18 11/18/2017 CMP, serum or plasm a alk phos 108 U/L (35-10 4) high Not Available [facility] [address] [place], [address], 11/18/2017 14:47:11/19/19 18 11/18/2017 CMP, serum or plasm a ALT 23 U/L (0-33) Not Available [facility] [address] [place], [address], 11/18/2017 14:47:05 11/19/19 18 11/18/2017 CMP, serum [...] Not Available [facility] [address] [place], [address], 11/18/2017 14:47:05 11/19/19 18 11/18/2017 CMP, serum [...] Available [facility] [address] [place], [address], 11/18/2017 14:47:05 11/19/19 18 11/18/2017 lipid panel , serum cholesterol, total 142 mg/dL (<200) Not Available [facility] [address] [place], [address], 11/18/2017 14:47:06 11/19/19 18 11/18/2017 lipid panel , serum triglyceride 123 mg/dL (<150) Not Available [facility] [address] [place], [address], 11/18/2017 14:47:06 11/19/19 18 11/18/2017 lipid panel , serum HDL chol 42 mg/dL (>39) Not Available [facility] [address] [place], [address], 11/18/2017 14:47:06 11/19/19 18 11/18/2017 lipid panel , serum LDL cholesterol, calculated 75 mg/dL (0-130 ) Not Available [facility] [address] [place], [address], 11/18/2017 14:47:06 11/19/19 18 11/18/2017 lipid panel , serum non HDL cholesterol (calc) 100 mg/dL (<160) Not Available [facility] [address] [place], [address], 11/18/2017 14:47:06 09/25/19 17 09/23/2016 US, blessing y No observ ation record ed. [email or web address] Not Available 17:51:26 01/08/20 17 01/06/2017 XR, lumbo sacra l spine No observ ation record ed. [email or web address] [facility] [place] [address], [place], [address], 01/09/2017 14:52:34 01/08/20 17 01/06/2017 XR, sacro iliac joint (s) No observ ation record ed. [email or web address] [facility] [place] [address], [place], [address], 01/09/2017 14:52:34 08/18/19 18 08/11/2017 MAMMO , scree [place], bilat eral No observ ation record ed. [email or web address] [facility] [address] [place], [address], 08/17/2017 16:21:15 Result Notes None recorded. Problems Name Problem SNOMED Code Status Onset Date Resolution Date Notes Provider Name and Address Organization Details Recorded Time [facility] jim 42754728 Active Thalia emmanuel [facility] 8 14:05:25 Hyperlip idemia 51270696 Active Thalia emmanuel [facility] 8 14:05:25 Diabetes mellitus 60737137 Completed 11/16/2017 Jeannie Metz PA-C [address], [place], [address] , [facility] 8 09:55:17 Low back pain 584776715 Completed 08/21/2016 Dyan emmanuel [facility] 7 08:56:16 Gastroes ophageal reflux disease 854609612 Active Thalia emmanuel [facility] 8 14:05:25 Acute bronchit is 77902678 Completed 200711/22/2013 RECORDED 02/01/20 08 10:12AM BY PASCUAL PUTNAM MA, ANNOTATI ON/DAYNE emmanuel [facility] 6 12:21:01 Acute pharyngi tis 066677111 Completed 201211/22/2013 RECORDED 11/10/19 13 9:52AM BY MALICK IHLL MA, ANNOTATI ON/ADDEN DUM Kevin Elsy'Alessand ro null, [facility] 6 12:21:01 Chronic allergic conjunct ivitis 57168689 Completed 201211/22/2013 RECORDED 05/11/19 13 9:31AM BY MALICK HILL MA, ANNOTATI ON/ADDEN DUM Kevin D'Alessand ro null, [facility] 6 12:21:01 Allergy Completed 201111/22/2013 RECORDED 11/17/19 12 9:29AM BY IVETH OSUNA I, ANNOTATI ON/ADDEN DUM Kevin Elsy'Alessand ro null, [facility] 6 12:21:01 Examinat ion for suspecte d mental disorder Completed 201211/22/2013 RECORDED 11/10/19 13 9:52AM BY MALICK HILL MA, ANNOTATI ON/ADDEN DUM Kevin Elsy'Alessand ro null, [facility] 6 12:21:01 Screenin g for malignan t neoplasm of breast Completed 201111/22/2013 RECORDED 11/17/19 12 9:29AM BY JAYASHREE DOUGLASATI ON/ADDEN DUM Jessica Gomez MA null, [facility] 7 10:15:40 Screenin g for malignan t neoplasm of breast Completed 09/30/2016 Jessica Gomez MA null, [facility] 7 10:15:40 Screenin g for malignan t neoplasm of cervix Completed 201211/22/2013 RECORDED 05/11/19 13 9:31AM BY MALICK HILL MA, ANNOTATI ON/ADDEN DUM Dyan Braun MA null, [facility] 7 08:56:00 Constipa tion 44407397 Completed 08/21/2016 Dyan emmanuel, [facility] 7 08:55:40 Risk of exposure to communic able disease 735254785 Completed 201111/22/2013 RECORDED 11/17/19 12 9:29AM BY RICK DOUGLAS ON/[facility] Kevin evans null, [facility] 6 12:21:01 Renal disorder due to type 2 diabetes mellitus 347286448 Active Thalia emmanuel, [facility] 8 14:05:25 Dysfunct ional uterine bleeding Completed 201111/22/2013 STORY: SEVERE CRAMPING ; RECORDED 11/17/19 12 9:29AM BY RICK DOUGLAS ON/[facility] Kevin evans null, [facility] 6 12:21:01 Divertic ulitis of colon 357123658 Active Thalia emmanuel, [facility] 8 14:05:25 Dysuria 69012891 Completed 09/16/2016 Dyan emmanuel, [facility] 7 15:45:17 Dysuria 76107008 Completed 201211/22/2013 RECORDED 05/11/19 13 9:31AM BY MALICK HILL MA, RICK ON/ Dyan emmanuel, [facility] 7 15:45:17 Follow-u p encounte r Completed 201211/22/2013 RECORDED 03/29/20 13 10:46AM BY EMMA SAGASTUME MA, RICK ON/[facility] Kevin emmanuel, [facility] 6 12:21:01 Influenz a vaccine needed 34540894849 06 Completed 08/21/2016 Dyan emmanuel [facility] 7 08:55:43 Influenz a vaccine needed 20682418734 06 Completed 200711/22/2013 RECORDED 08/05/19 08 10:33AM BY JEM CARDENAS, HISTORIC AL SUMMARY Dyan emmanuel, [facility] 7 08:55:43 Tobacco user 479535495 Completed 201211/22/2013 RECORDED 03/29/20 13 10:46AM BY EMMA SAGASUTME MA, ANNOTATI ON/ADDEN DUM Kevin Acosta'Alessand ro null, [facility] 6 12:21:01 History of clinical finding in subject [id number] Completed 08/21/2016 Dyan emmanuel, [facility] 7 08:56:29 Adult health examinat ion Completed 201211/22/2013 RECORDED 06/24/19 13 8:51AM BY MALICK HILL MA, ANNOTATI ON/ADDEN DUM Kevin Acosta'Alessand ro null, [facility] 6 12:21:01 General examinat ion of patient Completed 200711/22/2013 RECORDED 02/01/20 08 10:12AM BY PASCUAL PUTNAM MA, ANNOTATI ON/ADDEN DUM Kevin Acosta'Alessand ro null, [facility] 6 12:21:01 Hirsutis m 899735295 Active Thalia Alvarez null, [facility] 8 14:05:25 Ingrowin g nail 553532281 Completed 201111/22/2013 RECORDED 11/17/19 12 9:29AM BY [facility] Kevin Acosta'Alessand ro null, [facility] 6 12:21:01 Laborato ry procedur e performe d 831581633 Completed 08/21/2016 Dyan emmanuel, [facility] 7 08:56:04 Menstrua tion finding Completed 201211/22/2013 RECORDED 03/29/20 13 10:46AM BY EMMA SAGASTUME MA, ANNOTATI ON/ADDEN DUM Kevin Henry ro null, [facility] 6 12:21:01 Dysmenor sanjay 772789808 Completed 201211/22/2013 RECORDED 03/29/20 13 10:47AM BY EMMA SAGASTUME MA, ANNOTATI ON/ADDEN DUM Kevin Henry ro null, [facility] 6 12:21:01 Fibromyo sitis 33073926 Completed 201111/22/2013 STORY: DUE TO ATORVAST ATIN (TOLERAT ES SIMVASTA TIN); RECORDED 03/17/20 12 2:26PM BY MALICK HILL MA, ANNOTATI ON/[facility] Kevin Leiand ro null, [facility] 6 12:21:01 Administ ration of bacteria l and viral vaccine Completed 200711/22/2013 RECORDED 02/01/20 08 10:14AM BY PASCUAL PUTNAM MA, OFFICE VISIT Kevin Henry ro null, [facility] 6 12:21:01 Female genital organ symptoms 392891735 Completed 201211/22/2013 RECORDED 05/11/19 13 9:31AM BY MALICK HILL MA, [facility]ICK ON[facility] Kevin Henry ro null, [facility] 6 12:21:01 Tobacco user 605395075 Active Thalia Alvarez cholo, [facility] 8 14:05:25 Polycyst ic ovaries Completed 201111/22/2013 RECORDED 11/17/19 12 9:29AM BY RICK DOUGLAS ON/[facility] Kevin BanegasAlessand ro null, [facility] 6 12:21:01 Proteinu radha 00921470 Active Thalia Alvarez null, [facility] 8 14:05:25 Proteinu radha 05527847 Completed 201111/22/2013 RECORDED 11/17/19 12 9:29AM BY RICK DOUGLAS ON/ADDEN DUM Kevin Leiand ro null, [facility] 6 12:21:01 Eruption [id number] Completed 201111/22/2013 IMPRESSI ON: PT WITH PROGRESS PAMELA HIGHLY PRURITIC RASH X PAST WEEK, HANDS, FEET NOW TORSO BREAST AND ABDO AFFECTED . 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 HIGHLY SUSPICIO US FOR SCABIES [employer]. ADVISED RE USE OF MED, CLEANING AND LAUNDERI NG AT HOME. OOW X TODAY AND W/E, NOTE PROVIDED . TO CALL IF RASH PERSISTS AFTER TX.; RECORDED 11/17/19 12 9:29AM BY RICK DOUGLAS ON/ADDEN DUM Kevin Leiand ro null, [facility] 6 12:21:01 Sleep apnea 60910865 Completed 201111/22/2013 RECORDED 11/17/19 12 9:29AM BY RICK DOUGLAS ON/ADDEN DUM Kevin Henry ro null, [facility] 6 12:21:01 Tobacco dependen ce syndrome 19122921 Completed 201111/22/2013 RECORDED 06/21/19 12 11:13AM BY APSCUAL PUTNAM MA, ANNOTATI ON/ADDEN DUM Kevin Leiand ro null, [facility] 6 12:21:01 Type 2 diabetes mellitus without complica tion 567209151 Completed 201111/22/2013 RECORDED 11/17/19 12 9:29AM BY RICK DOUGLAS ON/ADDEN DUM Kevin Acosta'Alessand ro null, [facility] 6 12:21:01 Uncontro lled type 2 diabetes mellitus 805792341 Completed 200811/22/2013 RECORDED 05/30/19 09 7:36AM BY PASCUAL PUTNAM MA, ANNOTATI ON/ADDEN DUM Kevin evans null, [facility] 6 12:21:01 Urinary tract infectio us disease 21269466 Completed 201211/22/2013 STORY: CT NEG @ [facility]/N O PATHOLOG Y. F/U PRN; RECORDED 03/29/20 13 10:46AM BY EMMA SAGASTUME MA, ANNOTATI ON/ADDEN DUM Kevin evans null, [facility] 6 12:21:01 Vaginiti s and vulvovag initis Completed 201211/22/2013 RECORDED 06/24/19 13 8:51AM BY MALICK HILL MA, JAYASHREEATI ON/ADDEN DUM Dyan Braun MA null, [facility] 7 08:55:57 Candidal vulvovag initis 87134610 Completed 200711/22/2013 RECORDED 02/01/20 08 10:12AM BY PASCUAL PUTNAM MA, ANNOTATI ON/ADDEN DUM Kevin evans null, [facility] 6 12:21:01 Acute bronchit is 66367538 Completed 200712/12/2013 RECORDED 02/01/20 08 10:12AM BY PASCUAL PUTNAM MA, JAYASHREEATI ON/ADDEN MEGAN evans null, [facility] 6 12:21:01 Acute pharyngi tis 744626260 Completed 201212/12/2013 RECORDED 11/10/19 13 9:52AM BY MALICK HILL MA, ANNOTATI ON/ADDGLENN evans null, [facility] 6 12:21:01 Chronic allergic conjunct ivitis 85133096 Completed 201212/12/2013 RECORDED 05/11/19 13 9:31AM BY MALICK HILL MA, ANNOTATI ON/ADDEN DUM Kevin evans null, [facility] 6 12:21:01 Allergy Completed 201112/12/2013 RECORDED 11/17/19 12 9:29AM BY JAYASHREE DOUGLASATI ON/ADDEN DUM Kevin evans null, [facility] 6 12:21:01 Examinat ion for suspecte d mental disorder Completed 201212/12/2013 RECORDED 11/10/19 13 9:52AM BY MALICK HILL MA, RICK ON/ADDEN DUM Kevin Henry ro null, [facility] 6 12:21:01 Backache 711425567 Completed 08/21/2016 Dyan emmanuel, [facility] 7 08:55:50 Screenin g for malignan t neoplasm of breast Completed 201112/12/2013 RECORDED 11/17/19 12 9:29AM BY RICK DOUGLAS ON/ADDEN DUM JEM Barnett, [facility] 7 10:15:40 Screenin g for malignan t neoplasm of cervix Completed 08/21/2016 Dyan emmanuel, [facility] 7 08:56:00 Screenin g for malignan t neoplasm of cervix Completed 201212/12/2013 RECORDED 05/11/19 13 9:31AM BY MALICK HILL MA, ANNOTATI ON/ADDEN DUM Dyan emmanuel [facility] 7 08:56:00 Risk of exposure to communic able disease 527937305 Completed 201112/12/2013 RECORDED 11/17/19 12 9:29AM BY RICK DOUGLAS ON/ADDEN DUM Kevin emmanuel, [facility] 6 12:21:01 Depressi ve disorder 27309892 Completed 05/28/2014 Kevin emmanuel, [facility] 6 12:21:01 Dysfunct ional uterine bleeding Completed 201112/12/2013 STORY: SEVERE CRAMPING ; RECORDED 11/17/19 12 9:29AM BY RICK DOUGLAS ON/ADDEN DUM Kevin evans null, [facility] 6 12:21:01 Follow-u p encounte r Completed 201212/12/2013 RECORDED 03/29/20 13 10:46AM BY EMMA SAGASTUME MA, JAYASHREEATI ON/ADDEN DUM Kevin evans null, [facility] 6 12:21:01 Influenz a vaccine needed [id number] 06 Completed 200912/12/2013 DATE: 04/23/20 10; RECORDED 11/16/19 14 12:57PM BY PASCUAL PUTNAM MA, JAYASHREEATI ON/ADDEN DUM Dyan Braun MA null, [facility] 7 08:55:43 Tobacco user [id number] Completed 201212/12/2013 RECORDED 03/29/20 13 10:46AM BY EMMA SAGASTUME MA, RICK ON/ADDEN DUM Kevin evans null, [facility] 6 12:21:01 Adult health examinat ion Completed 201212/12/2013 RECORDED 06/24/19 13 8:51AM BY MALICK HILL MA, RICK ON/ADDEN MEGAN evans null, [facility] 6 12:21:01 General examinat ion of patient Completed 200712/12/2013 RECORDED 02/01/20 08 10:12AM BY PASCUAL PUTNAM MA, RICK ON/ADDEN DUM Kevin evans null, [facility] 6 12:21:01 Diana painting 175427350 Completed 201112/12/2013 RECORDED 11/17/19 12 9:29AM BY IVETH OSUNA I, ANNOTATI ON/ADDEN DUM Kevin evans null, [facility] 6 12:21:01 Laborato ry procedur e performe d 467481083 Completed 201312/12/2013 RECORDED 11/16/19 14 12:57PM BY PASCUAL PUTNAM MA, ANNOTATI ON/ADDEN DUM Dyan Braun MA null, [facility] 7 08:56:04 Low back pain 783513179 Completed 201312/12/2013 RECORDED 11/16/19 14 12:56PM BY PASCUAL PUTNAM MA, ANNOTATI ON/ADDEN DUM Dyan Braun MA null, [facility] 7 08:56:16 Menstrua tion finding Completed 201212/12/2013 RECORDED 03/29/20 13 10:46AM BY EMMA SAGASTUME MA, ANNOTATI ON/ADDEN DUM Kevin evans null, [facility] 6 12:21:01 Dysmenor sanjay 614101176 Completed 201212/12/2013 RECORDED 03/29/20 13 10:47AM BY EMMA SAGASTUME MA, ANNOTATI ON/ADDEN DUM Kevin evans null, [facility] 6 12:21:01 Fibromyo sitis 20063692 Completed 201112/12/2013 STORY: DUE TO ATORVAST ATIN (TOLERAT ES SIMVASTA TIN); RECORDED 03/17/20 12 2:26PM BY MALICK HILL MA, RICK ON/ADDEN DUM Kevin evans null, [facility] 6 12:21:01 Administ ration of bacteria l and viral vaccine Completed 200712/12/2013 RECORDED 02/01/20 08 10:14AM BY PASCUAL PUTNAM MA, OFFICE VISIT Kevin emmanuel, [facility] 6 12:21:01 Female genital organ symptoms 392651470 Completed 201212/12/2013 RECORDED 05/11/19 13 9:31AM BY MALICK HILL MA, RICK ON/ADDEN DUM Kevin Henry ro null, [facility] 6 12:21:01 Polycyst ic ovaries Completed 201112/12/2013 RECORDED 11/17/19 12 9:29AM BY RICK DOUGLAS ON/ADDEN DUM Kevin Henry ro null, [facility] 6 12:21:01 Eruption [id number] Completed 201112/12/2013 IMPRESSI ON: PT WITH PROGR[facility] PAMELA HIGHLY PRURITIC RASH X PAST WEEK, HANDS, FEET NOW TORSO BREAST AND ABDO AFFECTED . 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 HIGHLY SUSPICIO US FOR SCABIES [employer]. ADVISED RE USE OF MED, CLEANING AND LAUNDERI NG AT HOME. OOW X TODAY AND W/E, NOTE PROVIDED . TO CALL IF RASH PERSISTS AFTER TX.; RECORDED 11/17/19 12 9:29AM BY RICK DOUGLAS ON/ADDEN DUM Kevin Henry ro cholo, [facility] 6 12:21:01 Sleep apnea 66173913 Completed 201112/12/2013 RECORDED 11/17/19 12 9:29AM BY RICK DOUGLAS ON/ADDEN DUM Kevin Henry ro null, [facility] 6 12:21:01 Tobacco dependen ce syndrome 67512574 Completed 201112/12/2013 RECORDED 06/21/19 12 11:13AM BY PASCUAL PUTNAM MA, RICK ON/ADDEN DUM Kevin Henry ro null, [facility] 6 12:21:01 Type 2 diabetes mellitus without complica tion 753716242 Completed 201112/12/2013 RECORDED 11/17/19 12 9:29AM BY IVETH OSUNA I [facility] emmanuel, [facility] 6 12:21:01 Uncontro lled type 2 diabetes mellitus 288045182 Completed 200812/12/2013 RECORDED 05/30/19 09 7:36AM BY PASCUAL PUTNAM MA, ANNOTATI ON/ADDEN DUM Kevin evans null, [facility] 6 12:21:01 Urinary tract infectio us disease 32957935 Completed 201212/12/2013 STORY: CT NEG @ [facility]/N O PATHOLOG Y. F/U PRN; RECORDED 03/29/20 13 10:46AM BY EMMA SAGASTUME MA, ANNOTATI ON/[facility] Kevin evans null, [facility] 6 12:21:01 Vaginiti s and vulvovag initis Completed 201212/12/2013 RECORDED 06/24/19 13 8:51AM BY MALICK HILL MA, ANNOTATI ON/[facility] Dyan emmanuel, [facility] 7 08:55:57 Candidal vulvovag initis 48734136 Completed 200712/12/2013 RECORDED 02/01/20 08 10:12AM BY PASCUAL PUTNAM MA, ANNOTATI ON/[facility] Kevin evans null, [facility] 6 12:21:01 Acute vaginiti s 73894464 Completed 08/21/2016 Dyan emmanuel, [facility] 7 08:56:09 Vaginiti s 56531686 Completed 08/21/2016 Dyan emmanuel, [facility] 7 08:56:22 Spasm 35689101 Completed 08/21/2016 Dyan emmanuel, [facility] 7 08:56:33 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 Thalia Alvarez null, [facility] 8 14:05:25 Uncontro lled type 2 diabetes mellitus 176483541 Active Thalia Alvarez null, [facility] 8 14:05:25 Obesity 121376087 Active Thalia Alvarez null, [facility] 8 14:05:25 Secondar y diabetes mellitus 7800594 Completed 11/16/2017 Jeannie Metz PA-C [address], [place], [address] , [facility] 8 09:55:23 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 29063808 Active Thalia Alvarez null, [facility] 8 14:05:25 Major depressi ve disorder 186109798 Active Thalia Alvarez null, [facility] 8 14:05:25 Pain in pelvis 21928247 Completed 08/21/2016 Dyan emmanuel, [facility] 7 08:56:20 Leukocyt osis 635956038 Active Thalia Alvarez null, [facility] 8 14:05:25 Steatosi s of liver 619136310 Active Thalia Alvarez null, [facility] 8 14:05:25 Shoulder joint pain 029929631 Completed 08/21/2016 Dyan emmanuel, [facility] 7 08:56:14 Chronic pain 92172588 Active Thalia Alvarez null, [facility] 8 14:05:25 Disorder of nervous system due to diabetes mellitus 450478230 Active Thalia Alvarez null, [facility] 8 14:05:25 Urinary incontin ence 366078976 Active Thalia emmanuel [facility] 8 14:05:25 Vaginiti s and vulvovag initis Completed 08/21/2016 Dyan emmanuel [facility] 7 08:55:57 Lateral epicondy litis 649485907 Active Thaliabienvenido emmanuel [facility] 8 14:05:25 Edema of the upper extremit y 017073297 Completed 08/21/2016 Dyan emmanuel [facility] 7 08:55:46 Insomnia disorder related to another mental disorder 54598675 Active 2017 Jeannie Metz PA-C [address], [facility] [place], [address] , [facility] 8 09:59:11 Chronic kidney disease stage 1 896679829 Active 2017 Shellie emmanuel [facility] 8 14:30:22 Problem Notes None recorded. Procedures Surgical History Date Name Laterality Status Provider Name and Address Organization Details Recorded Time 8 Drain/inj joint/bursa w/o us completed Wen Irizarry [facility] 10/27/2017 14:13:15 8 Back Surgery completed Wen Irizarry [facility] 10/01/2017 15:05:30 8 Orthopedic Surgery completed Adalgisa Marlow [facility] 10/01/2017 16:12:10 8 Most Recent Mammogram completed Thalia Alvarez [facility] 08/17/2017 16:21:29 8 Mammogram Screening completed Thalia Alvarez [facility] 08/17/2017 16:21:24 8 Inj paravert f jnt c/t 1 lev completed Thalia Alvarez [facility] 07/09/2017 15:02:16 7 Cystoscopy completed Deb Quick [facility] 03/19/2017 15:05:02 7 Chronic Pain Assessment completed Dyan Braun MA [facility] 08/21/2016 08:56:53 2 Date of Last Pap Smear completed Jessica Gomez MA [facility] 11/22/2013 10:36:18 Tubal Ligation completed Emigdio Carson [facility] [address], [place], [address], [facility] 11/22/2013 10:57:11 Imaging Results Imaging Date Name Status LastModified by Organiz ation Details LastModified Time 09/23/2016 US, kidney completed Information not available 09/24/2016 17:51:26 01/06/2017 XR[facility] [place] [address] [place], [address], 01/09/2017 14:52:34 01/06/2017 XR, sacroiliac joint(s) [facility] [place] [address] [place], [address], 01/09/2017 14:52:34 08/11/2017 MAMMO, screening, bilateral completed [email or web address] [facility] [address] [place], [address], 08/17/2017 16:21:15 Procedure Notes None recorded. Medical Equipment None Reported. Allergies Allergen ID Allergen Name Allergen Category Reaction Reaction Severity Criticality Documentation Date Start Date Code Code System Note Provider Name and Address Organization Details Recorded Time 07698 Product containin g angiotens in-conver ting enzyme inhibitor (product) medicatio n cough Not available Not available 11/15/20132013 71457 009 SNOMED JEM Farfan, [facility] 4 15:39:36 05524 Byetta medicatio n other Not available Not available 11/15/20132013 22063 1 RxNorm Pascual Sheri-M JEM zaman null, [facility] 4 15:39:36 30346 Cymbalta medicatio n rash severe Not available 04/13/20142013 34105 4 RxNorm ? SJS from this med Aleida Van RN null, [facility] 4 10:43:02 52393 Medicinal product containin g penicilli n and acting as antibacte rial agent (product) medicatio n hives moderate Not available 09/19/2016 12595 05 SNOMED Kevin Lindsey lazara null, [facility] 7 11:26:10 Medications Name Sig Start Date [...] EMMA SAGASTUME MA, OFFICE VISIT;DR VINCENT JULIAN LAO/NAMRATA RINE Not Available Not Available Not Available [...] completed RECORDED 11/16/19 14 12:59PM BY PASCUAL PUTNAM MA, OFFICE VISIT;DR VINCENT CLIFFORD/ENDOC RINE Not [...] Not Available Not Available Not Available Pen Harper THREE TIMES DAILY 05/28 completed RECORDED 05/28/19 12 3:04PM BY RICK GUERRIER ON/ADDEN DUM; Not Available Not Available Not Available BD Insulin Syringe Ult-Fine II 1 mL 31 gauge x 5/16 active Not Available Not Available Not Available FreeStyle [place] kit QD active Not Available Not Available [...] Available Not Available Not Available Fluarix Quad 3448-9162 (PF) 60 mcg (15 mcg x 4)/0.5 [...] % 98 % 89 /min 98.3 [degF] 074096. 31 g 35.9 kg/m2 119 mm[Hg] 63 mm[Hg] Jessica Gomez [facility] 7 10:23:05 Date Recorded Body height Body mass index (BMI) Body weight Heart rate Oxygen saturation Oxygen saturation in Arterial blood by Pulse oximetry Body temperature Systolic blood pressure Diastolic blood pressure Provider Name and Address Organization Details Last Updated DateTime 7 167.64 cm 35 kg/m2 28501.5 4 g 103 /min 97 % 97 % 98 [degF] 134 mm[Hg] 78 mm[Hg] Iveth Sorensen [facility] [place] 7 14:41:13 Date Recorded Body height Body mass index (BMI) Body weight Heart rate Oxygen saturation Oxygen saturation in Arterial blood by Pulse oximetry Body temperature Systolic blood pressure Diastolic blood pressure Provider Name and Address Organization Details Last Updated DateTime 7 167.64 cm 35.2 kg/m2 13253.8 4 g 71 /min 99 % 99 % 97.1 [degF] 127 mm[Hg] 81 mm[Hg] Dyan Braun MA [facility] 7 09:35:08 Date Recorded Body height Body mass index (BMI) Body weight Oxygen saturation Oxygen saturation in Arterial blood by Pulse oximetry Heart rate Systolic blood pressure Diastolic blood pressure Provider Name and Address Organization Details Last Updated DateTime 8 167.64 cm 35.6 kg/m2 43979.4 2 g 97 % 97 % 85 /min 122 mm[Hg] 77 mm[Hg] Dyan Braun MA [facility] 8 10:02:08 Date Recorded Body height Body mass index (BMI) Body weight Body temperature Oxygen saturation Oxygen saturation in Arterial blood by Pulse oximetry Heart rate Systolic blood pressure Diastolic blood pressure Provider Name and Address Organization Details Last Updated DateTime 8 167.64 cm 35.1 kg/m2 64168.3 4 g 97.4 [degF] 96 % 96 % 85 /min 122 mm[Hg] 78 mm[Hg] Wen Irizarry [facility] 8 09:26:56 Social History Question Answer Notes LastModified by Organizat ion Details LastModified Time Tobacco Smoking Status Current Every Day Smoker Patient did quit, after accident she started again Emma emmanuel [facility] 11/16/2014 12:59:47 Do You Have An Advance Directive? No Information not available 12/14/2015 What Is Your Level Of Alcohol Consumption? None [email or web address] Information not available 11/22/2013 Is Blood Transfusion Acceptable In An Emergency? Yes Information not available 11/16/2014 What Is Your Level Of Caffeine Consumption? Occasional Mostly Coffee Sometimes Soda [email or web address] Information not available 11/22/2013 How Much Tobacco Do You Chew? None [email or web address] Information not available 11/22/2013 Are You Currently Employed? No Information not available 11/16/2014 Are You Deaf Or Do You Have Serious Difficulty Hearing? No [email or web address] Information not available 11/22/2013 What Type Of Diet Are You Following? DIABETIC Information not available 11/16/2014 Which Illicit Or Recreational Drugs Have You Used? N/A Information not available 11/16/2014 Have There Been Any Changes To Your Family Or Social Situation? No [email or web address] Information not available 11/22/2013 Are There Any Guns Present In Your Home? No [email or web address] Information not available 11/22/2013 Single Or Multi-level Home/work? Single Level Home [email or web address] Information not available 11/22/2013 Legally Blind In One Or Both Eyes? No Information not available 11/22/2013 Live Alone Or With Others? Alone [email or web address] Information not available 11/22/2013 Do You Take Precautions To Prevent Distracted Driving? Yes Information not available 08/03/2017 How Often Do You Need To Have Someone Help You When You Read Instructions, Pamphlets, Or Other Written Material From Your Doctor Or Pharmacy? Never Information not available 12/14/2015 Have You Served In The ? No Information not available 08/03/2017 Marital Status [email or web address] Informatio n not available 11/22/2013 What Was The Date Of Your Most Recent Tobacco Screening? 08/03/2017 Information not available 11/25/2018 How Many Children Do You Have? 2 Dtr Marialuisa And dtr [place] [email or web address] Information not available 12/14/2015 Difficulty Reading? No [email or web address] Information not available 11/22/2013 Seat Belts Used Routinely Yes Information not available 11/16/2014 Smoke Alarm In Home Yes [email or web address] Information not available 11/22/2013 At What Age Did You Start Smoking Tobacco? 16 Information not available 11/16/2014 Are You Passively Exposed To Smoke? No [email or web address] Information not available 11/22/2013 How Much Tobacco Do You Smoke? 1 PPD Information not available 11/16/2014 General Stress Level High Information not available 11/22/2013 Do You Use Any Illicit Or Recreational Drugs? No [email or web address] Information not available 11/22/2013 Do You Use Sunscreen Routinely? No Information not available 11/16/2014 How Many Years Have You Smoked Tobacco? 20 [email or web address] Information not available 11/22/2013 Difficulty Watching TV? No Information not available 11/22/2013 Sex: Unknown Functional Status Question Answer Note LastModified by Organizat ion Details LastModified Time Do you have difficulty walking or climbing stairs? Yes Information not available 11/22/2013 Difficulty driving at night? No [email or web address] Information not available 11/22/2013 Do you have difficulty doing errands alone? No [email or web address] Information not available 11/22/2013 Are you able to care for yourself? Yes Marialuisa is proxy Information not available 12/14/2015 Do you have difficulty dressing or bathing? No [email or web address] Information not available 11/22/2013 What is your exercise level? None Information not available 11/16/2014 Mental Status Question Answer Note LastModified by Organization D etails LastModified Time Do you have difficulty concentrating, remembering or making decisions? No Information no t available 11/22/2013 Family History Relationship Description Onset Age of this Age Resolved Age Notes LastModified by Organization Details LastModified Time Mother Diabetes mellitus [email or web address] Not available 09/2015 12:22:09 Father Heart disease [email or web address] Not available 09/2015 12:22:10 Medical History Condition Response Coronary Artery Disease N Gout N Other Y Blood Diseases N Kidney Stones N Hyperthyroidism N Breast Cancer N mrsa exposure N Lung Disease N Hypothyroidism N Depression Y COPD N Defects or Inherited Disease N Developmental or Behavioral Disorders N Breast Problem N Anesthesia Complications N Headaches/Migraines N Varicose Veins N Anxiety Disorder N Muscle, Joint, or Bone Problems Y Obesity N Vision or Eye Problems N Arthritis N Head Injury/Concussion N Infertility N Polyps N Mental Disorder N Congenital Anomalies N Acid Reflux (GERD) N Cancer N Stroke N ADHD N Endometriosis N High Cholesterol Y Liver Disease N Headaches N Fibromyalgia N Kidney Disease N Heart Problems N Ear or Hearing Problems N Hospitalizations N Thyroid Problems N GI Problems N Developmental Delay N Acne N Eating Disorder N Skin Problems N Anemia N Constipation N Bladder Problems N Mental Illness N Diabetes Y Ovarian Cancer N Bedwetting N Blood Transfusions N Heart Problems/Murmur N Seizures/Epilepsy N Tuberculosis N AIDS/HIV N Congestive Heart Failure (CHF) N Eczema N Abuse/Domestic Violence N Diverticulitis N Asthma N Allergies N Reflux/GERD N Hepatitis N Heart Disease N Pulmonary Embolism N Hypertension Y Chicken Pox N Autism Spectrum Disorder (ASD) N Osteoporosis N Gynecological History Statement/Question Response Date of Last Pap Smear 03/17/2012 Most Recent Mammogram 08/11/2017 Obstetrics History GPAL:G 0 P 0 0 0 0 Immunizations Vaccine Type Date Status Note Provider Nam e and Address Organization Details Recorded Time Influenza, split virus, trivalent, PF 5 completed Thalia Alvarez null, [facility] 08/11/2017 14:05:20 pneumococcal polysaccharide PPV23 4 completed Thalia Alvarez null, [facility] 08/11/2017 14:05:20 Influenza, split virus, trivalent, preservative 6 completed Thalia Alvarez null, [facility] 08/11/2017 14:05:20 Tdap 8 completed Thalia Alvarez null, [facility] 08/11/2017 14:05:20 Influenza, split virus, quadrivalent, PF 7 completed Not Available [facility] 05/21/2019 02:22:13 pneumococcal polysaccharide PPV23 7 completed Thalia Alvarez null, [facility] 08/11/2017 14:05:20 Influenza, split virus, trivalent, preservative 8 completed Thalia Alvarez null, [facility] 08/11/2017 14:05:20 Influenza, split virus, trivalent, preservative 8 completed Thalia Alvarez null, [facility] 08/11/2017 14:05:20 Tdap 8 completed Thalia Alvarez null, [facility] 08/11/2017 14:05:20 Influenza, split virus, trivalent, preservative 0 completed Thalia Alvarez null, [facility] 08/11/2017 14:05:20 Influenza, split virus, trivalent, preservative 2 completed Thalia Alvarez null, [facility] 08/11/2017 14:05:20 Influenza, split virus, trivalent, preservative 3 completed Thalia emmanuel [facility] 08/11/2017 14:05:20 Past Encounters Encounter ID Performer Location Encounter Start Date Encounter Closed Date Diagnosis/Indication Diagnosis SNOMED-CT Code Diagnosis ICD10 Code [id number] [address] [place] [address] 11/22/2013 09:54:55 11/22/2013 11:27:21 Adult health examination [id number] Diabetes mellitus 701060 09 Low back pain 094515226 Essential hypertension 72167680 Hyperlipidemia 64186925 Gastroesop hageal reflux disease 453458631 [id number] [employer] [address] [place] [address] 04/23/2010 00:00:00 [id number] [employer] [address] [facility] [place] [address] 04/23/2010 00:00:00 [id number] [employer] [address] [facility] [place] [address] 04/23/2010 00:00:00 [id number] [employer] [address] [facility],[address] [place] [address] 2 09/27/2010 00:00:00 [id number] [employer] [address] [facility],[address] [place] [address] 2 10/22/2010 00:00:00 [id number] [employer] [address] [facility] [place] [address] 10/22/2010 00:00:00 [id number] [employer] [address] [facility] [place] [address] 2 04/29/2011 00:00:00 [id number] [employer] [address] [facility] [place] [address] 04/29/2011 00:00:00 [id number] [employer] [address] [facility],[address] [place] [address] 2 06/21/2011 00:00:00 [id number] [employer] [address] [place] [address] 2 08/27/2011 00:00:00 [id number] [employer] [address] [place] [address] 2 08/27/2011 00:00:00 [id number] [employer] [address] [place] [address] 2 10/28/2011 00:00:00 [id number] [employer] [address] [place] [address] 2 10/28/2011 00:00:00 [id number] [employer] [address] [place] [address] 2 10/28/2011 00:00:00 [id number] [employer] [address] [place] [address] 2 10/28/2011 00:00:00 [id number] [employer] [address] [facility] [address] [place] [address] 2 11/01/2011 00:00:00 [id number] [employer] [address] [facility] [address] [place] [address] 2 11/01/2011 00:00:00 [id number] [employer] [address] [place] [address] 2 11/01/2011 00:00:00 [id number] [employer] [address] [place] [address] 2 11/01/2011 00:00:00 [id number] [employer] [address] [facility] [address] [place] [address] 2 11/17/2011 00:00:00 [id number] [employer] [address] [facility] [place] [address] 2 11/17/2011 00:00:00 [id number] [employer] [address] [place] [address] 2 11/17/2011 00:00:00 [id number] [employer] [address] [place] [address] 2 11/17/2011 00:00:00 [id number] [employer] [address] [place] [address] 2 03/17/2012 00:00:00 [id number] [employer] [address] [place] [address] 2 03/17/2012 00:00:00 [id number] [employer] [address] [place] [address] 2 03/17/2012 00:00:00 [id number] [employer] [address] [facility] [address] [place] [address] 2 05/11/2012 00:00:00 [id number] [employer] [address] [place] [address] 2 06/24/2012 00:00:00 [id number] [employer] [address] [place] [address] 2 06/24/2012 00:00:00 [id number] [employer] [address] [place] [address] 2 06/24/2012 00:00:00 [id number] [employer] [address] [place] [address] 2 07/24/2012 00:00:00 [id number] [employer] [address] [place] [address] 2 07/24/2012 00:00:00 [id number] [employer] [address] [place] [address] 2 07/24/2012 00:00:00 [id number] [employer] [address] [place] [address] 2 07/24/2012 00:00:00 [id number] [employer] [address] [place] [address] 2 11/09/2012 00:00:00 [id number] [employer] [address] [place] [address] 2 11/09/2012 00:00:00 [id number] [employer] [address] [place] [address] 2 03/29/2013 00:00:00 [id number] [employer] [address] [place] [address] 2 03/29/2013 00:00:00 [id number] [employer] [address] [place] [address] 2 03/29/2013 00:00:00 [id number] [employer] [address] [place] [address] 2 05/31/2013 00:00:00 [id number] [employer] [address] [place] [address] 2 05/31/2013 00:00:00 [id number] [employer] [address] [place] [address] 2 05/31/2013 00:00:00 [id number] [employer] [address] [place] [address] 2 05/31/2013 00:00:00 [id number] [employer] [address] [place] [address] 2 10/10/2013 00:00:00 [id number] [employer] [address] [place] [address] 2 10/10/2013 00:00:00 [id number] [employer] [address] [place] [address] 2 10/10/2013 00:00:00 [id number] [employer] [address] [place] [address] 2 10/10/2013 00:00:00 [id number] [employer] [address] [place] [address] 2 11/15/2013 00:00:00 [id number] [employer] [address] [place] [address] 2 11/15/2013 00:00:00 [id number] [employer] [address] [place] [address] 2 11/15/2013 00:00:00 [id number] [employer] [address] [place] [address] 2 11/15/2013 00:00:00 [id number] [employer] [address] [facility] [address] [place] [address] 12/01/2006 00:00:00 [id number] [employer] [address] [facility],[address] [place] [address] 2 12/01/2006 00:00:00 [id number] [employer] [address] [facility] [address] [place] [address] 2 12/01/2006 00:00:00 [id number] [employer] erce [address] [facility] [address] [place] [address] 2 12/15/2006 00:00:00 [id number] [employer] [address] [facility] [address] [place] [address] 2 05/06/2007 00:00:00 [id number] [employer] [address] [facility] [address] [place] [address] 2 05/06/2007 00:00:00 [id number] [employer] [address] [facility] [address] [place] [address] 2 08/05/2007 00:00:00 [id number] [employer] erce [address] [place] [address] 2 08/05/2007 00:00:00 [id number] [employer] er[employer] [address] [place] [address] 2 08/05/2007 00:00:00 [id number] [employer] [address] [facility] [address] [place] [address] 2 11/02/2007 00:00:00 [id number] [employer] [address] [facility] [address] [place] [address] 2 11/19/2007 00:00:00 [id number] [employer] [address] [facility] [address] [place] [address] 2 11/19/2007 00:00:00 [id number] [employer] [address] [facility] [address] [place] [address] 2 11/19/2007 00:00:00 [id number] auto[employer] erce [address] [facility],[address] [place] [address] 2 11/19/2007 00:00:00 [id number] [employer] [address] [facility],[address] [place] [address] 2 12/03/2007 00:00:00 [id number] [employer] erce [address] [facility],[address] [place] [address] 2 12/03/2007 00:00:00 [id number] auto[employer] erce [address] [facility] [address] [place] [address] 2 12/03/2007 00:00:00 [id number] [employer] erce [address] [facility],[address] [place] [address] 2 12/03/2007 00:00:00 [id number] auto[employer] erce [address] [facility] [address] [place] [address] 2 01/28/2008 00:00:00 [id number] [employer] erce [address] [facility],[address] [place] [address] 2 01/28/2008 00:00:00 [id number] [employer] erce [address] [place] [address] 2 01/28/2008 00:00:00 [id number] auto[employer] erce [address] [place] [address] 2 02/01/2008 00:00:00 [id number] auto[employer] erce [address] [place] [address] 2 05/30/2008 00:00:00 [id number] [employer] er[employer] [address] [place] [address] 2 05/30/2008 00:00:00 [id number] auto[employer] erce [address] [place] [address] 2 05/30/2008 00:00:00 [id number] auto[employer] erce [address] [facility],[address] [place] [address] 2 05/30/2008 00:00:00 [id number] auto[employer]Comm erce [address] [facility],[address] [place] [address] 2 08/29/2008 00:00:00 [id number] auto[employer] erce [address] [facility] [address] [place] [address] 2 08/29/2008 00:00:00 [id number] autoEComm erce [address] [facility],[address] [place] [address] 2 08/29/2008 00:00:00 [id number] auto[employer]Comm erce [address] [facility] [address] [place] [address] 2 08/29/2008 00:00:00 [id number] auto[employer]Comm erce [address] [facility] [address] [place] [address] 2 03/20/2009 00:00:00 [id number] auto[employer]Comm erce [address] [facility],[address] [place] [address] 2 03/20/2009 00:00:00 [id number] auto[employer] erce [address] [place] [address] 2 03/20/2009 00:00:00 [id number] [employer] er[employer] [address] [facility] [place] [address] 03/20/2009 00:00:00 [id number] [employer] erce [address] [facility],[address] [place] [address] 07/11/2009 00:00:00 [id number] [employer] erce [address] [facility],[address] [place] [address] 2 07/11/2009 00:00:00 [id number] [employer] erce [address] [facility],[address] [place] [address] 07/11/2009 00:00:00 [id number] [employer] erce [address] [facility],[address] [place] [address] 12/18/2009 00:00:00 [id number] Aleida Van RN Main Office [address] [place] [address] 02/24/2014 15:25:31 02/24/2014 16:22:20 Diabetes mellitus 00555402 Essential hypertension 90296280 [id number] Dyan Braun MA Main Office [address] [facility] [address] [place] [address] 04/19/2014 12:44:50 04/19/2014 13:33:59 Acute vaginitis 89228177 Drug-induc ed Lucas-Christopher syndrome 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 Follow-up encounter 3909 78238 Essential hypertension 54880969 Diabetes mellitus 467470 09 [id number] Emma Sagastume Main Office [address] [facility] [address] [place] [address] 05/29/2014 11:23:28 05/29/2014 12:09:24 Essential hypertension 70506208 Obesity 713325890 Renal diso rder due to type 2 diabetes mellitus 163531381 Degenerati on of lumbosacral intervertebral disc 81289767 Hyperlipidemia 67493955 022975 Kevin evans Main Office [address] [facility] [address] [place] [address] 11/16/2014 12:38:15 11/16/2014 13:41:48 Adult health examination 470647583 Major depr essive disorder 383225501 Renal diso rder due to type 2 diabetes mellitus 414906409 Essential hypertension 69182693 562196 Kevin evans Main Office [address] [address] [place] [address] 03/20/2015 15:28:47 03/20/2015 16:09:41 Pain in pelvis 67988657 R10.2 Leukocytosis 062982887 D 72.829 Steatosis of liver 22497 1007 K76.0 [id number] Kevin MakenzieMaida evans Main Office [address] [place] [address] 05/24/2015 13:00:22 05/24/2015 14:12:21 Degeneration of lumbosacral intervertebral disc 91885662 M51.37 Shoulder joint pain 2679 77766 M25.512 Chronic pain 85351905 G8 9.29 Major depr essive disorder 953266517 F32.9 Renal diso rder due to type 2 diabetes mellitus 265973833 E11.29 [id number] Kevin evans Main Office [address] [address] [place] [address] 07/03/2015 08:40:32 07/03/2015 09:28:06 Constipation 09518837 K59.00 Chronic pain 08805525 G8 9.29 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 925193155 E11.40 Urinary incontinence 165 197153 R32 Vaginitis and vulvovaginitis 352897408 N76.0 [id number] Kevin evans Main Office [address] [place] [address] 08/23/2015 10:36:51 08/23/2015 12:02:34 Lateral epicondylitis 272916001 M77.11 [id number] Gabriele Patel MD Main Office [address] [place] [address] 09/15/2015 10:33:07 09/15/2015 11:53:40 Dysuria 04065964 R30.0 Renal diso rder due to type 2 diabetes mellitus 810760889 E11.22 [id number] Kevin evans Main Office [address] [address] [place] [address] 11/06/2015 11:15:55 11/06/2015 12:11:54 Edema of the upper extremity 413404198 R60.0 Major depr essive disorder 553884533 F33.9 Essential hypertension 79445383 I10 Chronic pain 26806110 G8 9.29 [id number] Kevin evans Main Office [address] [facility] [address] [place] [address] 12/14/2015 13:25:51 12/14/2015 14:48:40 Adult health examination 118144216 Z00.00 Renal diso rder due to type 2 diabetes mellitus 341792989 E11.22 N18.2 Degenerati on of lumbosacral intervertebral disc 79508882 M51.37 Chronic pain 09722630 G8 9.29 Major depr essive disorder 336837273 F33.9 [id number] Kevin evans Main Office [address] [facility] [address] [place] [address] 05/16/2016 14:15:45 05/16/2016 15:50:32 Neck pain 10238456 M54.2 Major depr essive disorder 048478638 F32.9 [id number] Shellie Chapman Main Office [address] [facility] [address] [place] [address] 08/21/2016 08:46:41 08/21/2016 09:49:52 Chronic pain 99967965 G89.29 Chronic ki dney disease stage 1 863689526 N18.1 Renal diso rder due to type 2 diabetes mellitus 736953820 E11.22 Hyperlipidemia 75039410 E78.5 Tobacco de pendence syndrome 82876099 F17.290 Chronic pain syndrome 37 7475606 G89.4 Hypertensi ve renal disease 84305804 I12.9 [id number] Kevin evans Main Office [address] [facility] [address] [place] [address] 09/19/2016 10:36:47 09/19/2016 11:34:36 Dysuria 00223860 R30.0 [id number] Kevin evans Main Office [address] [facility] [address] [place] [address] 09/26/2016 16:26:36 09/26/2016 17:08:20 [id number] Kevin evans Main Office [address] [address] [place] [address] 09/30/2016 10:13:28 09/30/2016 10:53:18 Urinary tract infectious disease 15124572 N39.0 Urinary incontinence 165 586896 R32 Uncontroll ed type 2 diabetes mellitus 210841905 E11.65 Essential hypertension 77693344 I10 Acute vaginitis 10993253 N76.0 [id number] Kevin evans Main Office [address] [address] [place] [address] 01/06/2017 14:04:42 01/06/2017 15:24:15 Lumbar radiculopathy 768948989 M54.16 [id number] Kevin evans Main Office [address] [address] [place] [address] 02/19/2017 09:25:09 02/19/2017 10:09:46 Needs influenza immunization 995410043 Z23 Urinary incontinence 165 420294 R32 [id number] Kevin evans Main Office [address] [address] [place] [address] 08/03/2017 09:45:53 08/03/2017 10:34:19 Adult health examination 597780303 Z00.00 Screening for malignant neoplasm of breast 913714482 Z12.39 Screening for malignant neoplasm of cervix 675129975 Z12.4 Administra tion of viral vaccine 78138719 Z23 Eczema 64177369 L30.9 Uncontroll ed type 2 diabetes mellitus 588294536 E11.65 Major depr essive disorder 780492460 F33.9 [id number] Main Office [address] [address] [place] [address] 11/16/2017 08:53:08 11/16/2017 10:19:36 Uncontrolled type 2 diabetes mellitus 933620104 E11.65 Renal diso rder due to type 2 diabetes mellitus 714099831 E11.22 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 329222868 E11.49 Hyperlipidemia 09378199 E78.00 Essential hypertension 20949739 I10 Major depr essive disorder 511113385 F32.9 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 78262643 F51.05 F99 Tobacco user 840310664 Z 72.0 Body mass index 30+ - obesity 519074970 E66.01 Z68.35 Chronic ki dney disease stage 1 742671957 N18.1 Health Concerns Section Related Observation LastModified by Organization Detai ls LastModified Time None Recorded Concern Status LastModified by Organization Details LastModified Time None Recorded Advance Directives Directive N: Payers Encounter Date Sequence Insurance Name Policy Number Policy Cordero Covered Member ID Cordero Member ID Guarantor Name 09/30/2016 1 [place] [employer] Mabeline Quick Buck [id number] Mabeline Quick Buck 09/30/2016 2 [place] Mabeline Quick-Pal obinna [id number] Mabeline Quick Buck 01/06/2017 1 [place] [employer] Mabeline Quick Buck [id number] Mabeline Quick Buck 01/06/2017 2 [place] Mabeline Quick-Pal [place] [id number] Mabeline Quick Buck 02/19/2017 1 [place] [employer] Mabeline Quick Buck [id number] Mabeline Quick Buck 02/19/2017 2 [place] Mabeline Quick-Pal [place] [id number] Mabeline Quick Buck 08/03/2017 1 [place] [employer] Mabeline Quick Buck [id number] Mabeline Quick Buck 08/03/2017 2 [place] Mabeline Quick-Pal ob[place]na [id number] Mabeline Quick Buck 11/16/2017 1 [place] [employer] Mabeline Quick Buck [id number] Mabeline Quick Buck 11/16/2017 2 [place] Mabeline Quick-Pal obinna [id number] Mabeline Quick Buck Notes Date Note Type Note Provider Name and Address Organization Details Recorded Time 09/30/2016 text/html Hospitalization Contact RecordReported bypatient.[facility]; admit date: (Please enter in format [...] has resolved. glipizide was increased. Kevin emmanuel [facility] 09/30/2016 17:31:32 01/06/2017 text/html Generic HPI TemplateReported bypatient.Notes:left hip/ buttock pain that radiates down leg into toes with numbness and tingling. She feels pain is severe and was going to go to ED. She notes she has had back pain with a UTI before, her urine is yellow but bubbly appearing. She does have DM and endocrine is sending her to [facility] for a test as she cannot take insulin. Kevin emmanuel [facility] 01/06/2017 16:37:31 02/19/2017 text/html Urinary FrequencyReported bypatient.Quality:symp toms worse during the day Severity:moderate Alleviating Factors:nothing gives relief; pt notes urinary incontinence. pt has leakage Aggravating Factors:tobacco use; pt quit smoking last year Associated Symptoms:no abdominal pain; no diarrhea; no hesitancy; no vomiting; pt has urine odor when she has UTI/ pt plans for bladder botox. see plan Kevin emmanuel [facility] 02/19/2017 09:59:55 08/03/2017 text/html Medicare Annual Wellness [...] good lighting in the home Kevin emmanuel [facility] 08/03/2017 10:31:16 11/16/2017 text/html 52 year old fema le for f/u. PT. 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 Sees endo at [facility] and is currently on V-Go pump and CGM with [employer]. A!c today is improved at 10.0% from 11.3% on last visit with endo . PT. has almaz for f/u. PT. has neuropathy. 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 Overdue for diabetic eye exam. REports no vision changes.Major depression. Sees psych and counselor in [place]. On Citalopram 20 mg and Zolpidem for insomnia from them.Chronic pain and neuropathy. WAS ON Lyrica , but discontinued in May.HTN is stable on meds. PT. is overdue for labs.Hyperlipidemia. ON atorvastatin 10 mg. Overdue for labs.TObacco user. 12 or 13 cigarettes per day. STopped in the past with CHantix. Wants to try again. Shellie emmanuel [facility] 11/16/2017 14:31:49 OBGyn Episode No OBEpisode recorded.
[2024-04-15] MEDS: Lactated Ringers 1,000 ML 100 ML IVCONT (06:13)
[2024-04-15 06:56] LABS: Glucose, Whole Blood 217 mg/dL (60-115)
--- NOTE | 2024-04-15 08:45 | P.BOP_ITS ---
Brief Operative Note Date of Service: 04/15/24 Pre-op diagnosis: Right knee medial meniscus tear, right knee lateral meniscus tear, right knee degenerative joint disease Post-op diagnosis: same Procedure: Right knee diagnostic arthroscopy with right knee arthroscopic partial medial and lateral meniscectomies, right knee arthroscopic chondroplasty of the undersurface of the patella Implants: none Surgeon: Westley Buitrago MD Anesthesia: GLMA Was an Senior Applications Analyst used for this Procedure?: No Estimated blood loss (mL): 10 Pathology: none sent Condition: stable Disposition: PACU
--- NOTE | 2024-04-15 08:47 | P.OP_ITS ---
Operative Note Operative Note Date of Service: 04/15/24 Narrative: After the patient was identified as Estefania Buck and her right knee was initialed by myself they were brought to the operating room where general anesthesia was induced by the anesthesiologist in routine fashion. Because of the patient's allergy to penicillins she was given 900 mg of IV clindamycin for infection prophylaxis. A formal time-out was completed. The patient's right lower extremity was prepped and draped in sterile fashion. Marcaine with epinephrine was injected into the planned incision sites as well as their right knee joint. A # 11 scalpel blade was used to make an anterolateral portal 1 cm proximal to the joint line and 1 cm lateral to the patellar tendon. Blunt trocar technique was used into the suprapatellar pouch with the knee in extension. Diagnostic arthroscopy showed multiple bands of thickened plica which would be excised at the end of the procedure. There were no loose bodies or abnormalities found in either the medial or lateral gutters. There were diffuse grades 1 and 2 degenerative changes of the undersurface of the patella as well as grades 1 and 2 degenerative changes of the trochlear groove. The patient's knee was flexed to 45 degrees and a valgus force was placed upon it. The medial compartment was entered. An anteromedial portal was made 1 cm proximal to the joint line and 1 cm medial to the patellar tendon. Probing of the medial meniscus showed a radial tear of the anterior horn. A partial medial meniscectomy was performed using the arthroscopic shaver. Following the partial meniscectomy the remainder of the meniscus tissue was stable. There were diffuse grade 1 degenerative changes of the medial femoral condyle as well as diffuse grade 1 degenerative changes of the medial tibial plateau. The patient's knee was then placed into a neutral position. There was no injury to the anterior cruciate ligament. The patient's knee was then placed into the figure of 4 position and the lateral compartment was entered. There were minimal de generative changes of the lateral femoral condyle and lateral tibial plateau. There was a radial tear of the anterior horn of the lateral meniscus. A partial lateral meniscectomy was performed using the arthroscopic shaver. Following the partial meniscectomy the remainder of the meniscus tissue was stable. The patient's knee was once again brought into extension and the suprapatellar pouch was entered. The arthroscopic shaver and the ArthroCare Wand were used to excise the thickened bands of plica. The undersurface of the patella was then made smooth using the arthroscopic shaver. The articular surface of the trochlear groove was already smooth so no chondroplasty was indicated. The knee joint was irrigated and then drained. All arthroscopic instruments were removed. The 2 portals were closed with 3-0 nylon interrupted suture. The knee joint was injected with Marcaine. Dry sterile dressing and Ramiro bandages were placed over the patient's knee. The patient was awoken and extubated in the operating room. They were transferred to the recovery room in stable condition.
== END 2024-04-15 10:15 | disposition home or self-care (01) ==
PROVIDERS: PCP Family Medicine; Visit Provider Orthopaedic Surgery
PROC: (CPT 29870; principal; 2024-04-15 07:30)
DX: S83.241A Other tear of medial meniscus, current injury, right knee, initial encounter (principal); S83.281A Other tear of lateral meniscus, current injury, right knee, initial encounter; M23.51 Chronic instability of knee, right knee; M22.2X1 Patellofemoral disorders, right knee; M67.51 Plica syndrome, right knee; G47.33 Obstructive sleep apnea (adult) (pediatric); W19.XXXA Unspecified fall, initial encounter; Y93.9 Activity, unspecified; Y92.9 Unspecified place or not applicable; Y99.9 Unspecified external cause status; I10 Essential (primary) hypertension; E78.00 Pure hypercholesterolemia, unspecified; E55.9 Vitamin D deficiency, unspecified; E11.42 Type 2 diabetes mellitus with diabetic polyneuropathy; Z79.4 Long term (current) use of insulin; Z79.84 Long term (current) use of oral hypoglycemic drugs; Z79.82 Long term (current) use of aspirin; Z79.899 Other long term (current) drug therapy; Z99.89 Dependence on other enabling machines and devices; Z88.1 Allergy status to other antibiotic agents; Z88.0 Allergy status to penicillin; Z88.8 Allergy status to other drugs, medicaments and biological substances; Z98.890 Other specified postprocedural states; Z87.891 Personal history of nicotine dependence
CPT/HCPCS: 29880; 29876; 82947; J0131; J0171; J0736; J1100; J1885; J2003; J2250; J2405; J2704; J2795; J3010

== ENCOUNTER → 2024-04-15 05:36 | Outpatient (BNV) | payer OTHER, SELFPAY | PROVIDERS: PCP Family Medicine; Visit Provider Orthopaedic Surgery | DX: S83.241A Other tear of medial meniscus, current injury, right knee, initial encounter (principal); S83.281A Other tear of lateral meniscus, current injury, right knee, initial encounter | CPT/HCPCS: 29880 ==

== ENCOUNTER 2024-04-22 08:05 | Outpatient (REF) | payer OTHER, SELFPAY ==
--- OUTSIDE RECORDS SUMMARY | 2024-04-22 08:10 | XMS_ITS | Data Portability ---
Author Organization [facility], Main Office Address [address] [place] [address] Care Team Providers Care Form Maker Name Role Phone LIYAH MARTINES Urogynecologist VINCENT MUSE Operator Prefinish [facility] Pain Management JEANNIE METZ Primary Care Provider ROXANN SOSA Apprentice Carpenter Assessment No assessment recorded. Plan of Treatment Reminders Order Date Submit Date Provider Last Modified By Organization Details Last Modified Time Details Appointments None recorded. Lab microalbum in, urine 2017 018 [facility], [address], [address], [place], [address], 8 14:18:56 hemoglobin A1C, fingerstic k 2017 018 In-Office Order, Internal Use Only DO Not Attach Compendium DO Not Attach Compendium, Do Not Delete/merge, [id number] 8 09:51:21 glucose, fingerstic k, blood 2017 018 In-Office Order, Internal Use Only DO Not Attach Compendium DO Not Attach Compendium, Do Not Delete/merge, [id number] 8 09:51:21 lipid panel, serum 2017 018 [facility], [address], [address], [place], [address], 8 14:47:06 CMP, serum or plasma 2017 018 [facility], [address], [address], [place], [address], 8 14:47:05 Referral urogynecol ogist referral - this pt is at no increased risk for upcoming bladder-tsering tox procedurer on Mar 02, 2017. There are no contraindi cations- Pt feels well and will continue current tx. 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 PT. is on Lyrica. Needs diabetic foot care. 2017 018 Not available 8 10:19:37 diabetic ophthalmol ogy referral - Diabetic eye exam. 2017 018 abigby Not available 9 10:35:[address]/dietiti an referral 2017 018 [email or web address] Not available 8 10:19:37 Procedures None recorded. Surgeries None recorded. Imaging XR, lumbosacra l spine - low back pain with radiculopa thy 2016 017 [facility], [address] [place], [address], 7 15:26:52 XR, sacroiliac joint(s) - left low back pain with radiculopa thy 2016 017 [facility], [address] [place], [address], 7 15:26:53 MAMMO, screening, bilateral - Perform Diagnostic Mammogram and Breast Ultrasound if needed / Perform Ultrasound Guided Aspiration and/or Breast Biopsy if warranted 2017 018 [facility], [address] [place], [address], 8 11:28:39 Medication Orders meloxicam 15 mg tablet 2016 017 [facility] #1130, [phone] [place], [address], 8 09:59:25 methocarba mol 750 mg tablet 2016 017 [facility]1130, [phone] [place], [address], 7 09:36:04 acetaminop hen 300 mg-codeine 30 mg tablet 2016 017 [facility]1130, [phone] [place], [address], 8 09:58:39 Temovate 0.05 % topical ointment 2017 018 [facility]acy #[id number], [address] [place], [address], 8 13:42:34 Chantix Starting Month Box 0.5 mg (11)-1 mg (42) tablets in dose pack 2017 018 [facility]FACE [id number], [address] [place], [address], 8 10:04:23 Chantix Continuing Month Box 1 mg tablet 2017 018 [facility] #[id number], [address] [place], [address], 8 10:04:21 Patient TargetsNo targets recorded. Patient Instructions Encounter Date Encounter Id Patient Instructions Last Modified By Organization Details Last Modified Time 09/30/2016 [id number] Urinary Tract Infection (UTI) in Women: Care Instructions Not available 09/30/2016 14:09:22 Call or return for worsening or concerns [email or web address] Not available 09/30/2016 10:28:38 At [facility] follow up visit, all current and discharge [...] care. [email or web address] Not available 09/30/2016 17:31:22 01/06/2017 [id number] acute low back pain: exercises Not available 01/06/2017 15:45:22 getting back to normal after low back pain: care instructions Not available 01/06/2017 15:45:22 Call or return for worsening or concerns [email or web address] Not available 01/06/2017 15:36:08 I have reviewed the note and agree with the assessment and plan of care. [email or web address] Not available 01/06/2017 16:37:20 08/03/2017 [id number] preventing falls: care instructions mdalessandro Not available 08/03/2017 10:24:23 Cervical Cancer Screening mdalessandro Not available 08/03/2017 10:24:23 11/16/2017 [id number] dash diet: care instructions Not available 11/16/2017 [...] Kevin Burns, Internal Medicine, Encounter Date: 02/19/2017 Ict Sales Representative Referral for Sc reening for malignant neoplasm of cervix Referring Physician: Kevin Burns, Internal Medicine, Encounter Date: 08/03/2017 Milk Drying Machine Operator Referral for Diso rder of nervous system due to diabetes mellitus Diabetes Mellitus TYpe II with diabetic peripheral neuropathy. PT. is on Lyrica. Needs diabetic foot care. Referring Physician: Jeannie Metz Internal Medicine, Encounter Date: 11/16/2017 Diabetic Ophthalmology Refer ral for Uncontrolled type 2 diabetes mellitus Diabetic eye exam. Referring Physician: Jeannie Metz, Internal Medicine, Encounter Date: 11/16/2017 Medart Operator/dietitian Refer ral for Body mass index 30+ - obesity Referring Physician: Jeannie Metz, Internal Medicine, Encounter Date: 11/16/2017 Results Created Date Observation Date Name Description Value Unit Range Abnormal Flag Note LastModifiedBy Organization Detail LastModifiedTime 09/19/2016 urina lysis , dipst ick Leukocytes Negati ve Not Available In-Office Order Internal Use Only DO Not Attach Compendium DO Not Attach Compendium, Do Not Delete/merge, [id number] 09/19/2016 10:57:50 09/19/2016 urina lysis , dipst ick Nitrite positi ve Not Available In-Office Order Internal Use Only DO Not Attach Compendium DO Not Attach Compendium, Do Not Delete/merge, [id number] 09/19/2016 10:57:50 09/19/2016 urina lysis , dipst ick Urobilinogen .2 Not Available In-Of fice Order Internal Use Only DO Not Attach Compendium DO Not Attach Compendium, Do Not Delete/merge, [id number] 09/19/2016 10:57:50 09/19/2016 urina lysis , dipst [...] 09/19/2016 urina lysis , dipst ick Specific Newton 1.015 Not Available In-Off ice Order Internal [...] W CLEAR Not Available [facility] [address] [place], [address], 09/20/2016 01:39:07 09/20/19 17 09/20/2016 urina lysis , compl ete sp. gravity 1.015 (1.002 -1.030 ) Not Available [facility] [address] [place], [address], 09/20/2016 01:39:07 09/20/19 17 09/20/2016 urina lysis , compl ete urine pH 6.0 (4.0-8 .0) Not Available [facility] [address] [place], [address], 09/20/2016 01:39:07 09/20/19 17 09/20/2016 urina lysis , compl ete urine albumin NEGATI VE (neg) Not Available [facility] [address] [place], [address], 09/20/2016 01:39:07 09/20/19 17 09/20/2016 urina lysis , compl ete urine glucose 3+ (neg) abnormal Not Available [facility] [address] [place], [address], 09/20/2016 01:39:07 09/20/1909/20/2016 urina lysis , compl ete urine ketones NEGATI VE (neg) Not Available [facility] [address] [place], [address], 09/20/2016 01:39:07 09/20/1909/20/2016 urina lysis , compl ete urine bilirubin NEGATI VE (neg) Not Available [facility] [address] [place], [address], 09/20/2016 01:39:07 09/20/19 17 09/20/2016 urina lysis , compl ete urine hemoglobn 1+ (neg) abnormal Not Available [facility] [address] [place], [address], 09/20/2016 01:39:07 09/20/19 17 09/20/2016 urina lysis , compl ete urine nitrite POSITI VE (neg) abnormal Not Available [facility] [address] [place], [address], 09/20/2016 01:39:07 09/20/19 17 09/20/2016 urina lysis , compl ete urine leukocyte 2+ (neg) abnormal Not Available [facility] [place], [address], 09/20/2016 01:39:07 09/20/19 17 09/20/2016 urina lysis , compl ete urobilinogen NORMAL mg/dL (norm) Not Available [facility] [address] [place], [address], 09/20/2016 01:39:07 09/20/19 17 09/20/2016 urina lysis , compl ete urine WBC's 21 /hpf (0-5) high Not Available [facility] [address] [place], [address], 09/20/2016 01:39:07 09/20/19 17 09/20/2016 urina lysis , compl ete urine RBC's 9 /hpf (<3) high Not Available [facility] [address] [place], [address], 09/20/2016 01:39:07 09/20/19 17 09/20/2016 urina lysis , compl ete bacteria SLIGHT hpf (neg) abnormal Not Available [facility] [address] [place], [address], 09/20/2016 01:39:07 09/20/19 17 09/20/2016 urina lysis , compl ete squamous epith 1 /hpf Not Available [facility] [address] [place], [address], 09/20/2016 01:39:07 09/20/19 17 09/19/2016 cultu re, urine specimen description CLEAN CATCH (URINE ) Not Available [facility] [address] [place], [address], 09/21/2016 10:27:40 09/20/19 17 09/19/2016 cultu re, urine special requests NONE Not Available [facility] [place], [address], 09/21/2016 10:27:40 09/20/19 17 09/21/2016 cultu re, urine culture >100,0 00 COL/ML KLEBSI ANDREA PNEUMO NIAE Not Available [facility] [address] [place], [address], 09/21/2016 10:27:40 09/20/19 17 09/21/2016 cultu re, urine report status FINAL 2016 Not Available [facility] [address] [place], [address], 09/21/2016 10:27:40 09/20/19 17 09/21/2016 cultu re, urine organism ORGANI SM >100,0 00 COL/ML KLEBSI ANDREA PNEUMO NIAE Not Available [facility] [address] [place], [address], 09/21/2016 10:27:40 09/20/19 17 09/21/2016 cultu re, urine method METHOD MIN. INHIB. CONC. (MCG/M L) Not Available [facility] [address] [place], [address], 09/21/2016 10:27:40 09/20/19 17 09/21/2016 cultu re, urine ampicillin AMPICI LLIN RESIST ANT resistant Not Available [facility] [address] [place], [address], 09/21/2016 10:27:40 09/20/19 17 09/21/2016 cultu re, urine ampicillin/s ulbactam AMPICI LLIN/S ULBACT AM SUSCEP TIBLE susceptib le Not Available [facility] [address] [place], [address], 09/21/2016 10:27:40 09/20/19 17 09/21/2016 cultu re, urine amoxicillin/ clavulanic acid AMOXIC ILLIN/ CLAVUL AN SUSCEP TIBLE susceptib le Not Available [facility] [address] [place], [address], 09/21/2016 10:27:40 09/20/19 17 09/21/2016 cultu re, urine cefazolin CEFAZO CLAUDIO SUSCEP TIBLE susceptib le Not Available [facility] [address] [place], [address], 09/21/2016 10:27:40 09/20/19 17 09/21/2016 cultu re, urine cefepime CEFEPI ME SUSCEP TIBLE susceptib le Not Available [facility] [address] [place], [address], 09/21/2016 10:27:40 09/20/19 17 09/21/2016 cultu re, urine ceftriaxone CEFTRI AXONE SUSCEP TIBLE susceptib le Not Available [facility] [address] [place], [address], 09/21/2016 10:27:40 09/20/19 17 09/21/2016 cultu re, urine ciprofloxaci n CIPROF LOXACI N SUSCEP TIBLE susceptib le Not Available [facility] [address] [place], [address], 09/21/2016 10:27:40 09/20/19 17 09/21/2016 cultu re, urine gentamicin GENTAM ICIN SUSCEP TIBLE susceptib le Not Available [facility] [address] [place], [address], 09/21/2016 10:27:40 09/20/19 17 09/21/2016 cultu re, urine levofloxacin LEVOFL OXACIN SUSCEP TIBLE susceptib le Not Available [facility] [address] [place], [address], 09/21/2016 10:27:40 09/20/19 17 09/21/2016 cultu re, urine meropenem MEROPE NEM SUSCEP TIBLE susceptib le Not Available [facility] [address] [place], [address], 09/21/2016 10:27:40 09/20/19 17 09/21/2016 cultu re, urine nitrofuranto in NITROF URANTO IN SUSCEP TIBLE susceptib le Not Available [facility] [address] [place], [address], 09/21/2016 10:27:40 09/20/19 17 09/21/2016 cultu re, urine piperacillin /tazobactam PIPERA CILLIN /TAZOB AC SUSCEP TIBLE susceptib le Not Available [facility] [address] [place], [address], 09/21/2016 10:27:40 09/20/19 17 09/21/2016 cultu re, urine trimeth/sulf amethox TRIMET H/SULF AMETHO X RESIST ANT resistant Not Available [facility] [address] [place], [address], 09/21/2016 10:27:40 09/20/19 17 09/21/2016 cultu re, urine tetracycline TETRAC YCLINE SUSCEP TIBLE susceptib le Not Available [facility] [address], [place], [address], 09/21/2016 10:27:40 11/17/19 18 11/16/2017 gluco se, dejuanalma rstic k, blood Blood Glucose: mg/dl 255 Not Available In-Off ice Order Internal Use Only DO Not Attach Compendium DO Not Attach Compendium, Do Not Delete/merge, [id number] 11/16/2017 09:34:27 11/17/19 18 11/16/2017 hemog lobin A1C, dejuanalma rstic k HA1C 10.0 % 4-6 Not Available In-Office Order Internal Use Only DO Not Attach Compendium DO Not Attach Compendium, Do Not Delete/merge, [id number] 11/16/2017 09:33:53 11/19/19 18 11/18/2017 micro album in, urine micro-albumi n 146.4 mg/L (0-20) high Not Available [facility] [address] [place], [address], 11/18/2017 14:18:56 11/19/19 18 11/18/2017 micro album in, urine malb/creat ratio 130.5 mg/gm (0-20) high Not Available [facility] [address] [place], [address], 11/18/2017 14:18:56 11/19/19 18 11/18/2017 micro album in, urine urine creat for micro albumin 112.2 mg/dL Not Available [facility] [address] [place], [address], 11/18/2017 14:18:56 11/19/19 18 11/18/2017 CMP, serum or plasm a glucose 203 mg/dL (70-99 ) high Not Available [facility] [address] [place], [address], 11/18/2017 14:47:05 11/19/19 18 11/18/2017 CMP, serum or plasm a BUN 13 mg/dL (6-20) Not Available [facility] [address] [place], [address], 11/18/2017 14:47:05 11/19/19 18 11/18/2017 CMP, serum or plasm a creatinine 0.6 mg/dL (0.5-1 .0) Not Available [facility] [address] [place], [address], 11/18/2017 14:47:05 11/19/19 18 11/18/2017 CMP, serum or plasm a sodium 142 mmol/ L (133-1 45) Not Available [facility] [address] [place], [address], 11/18/2017 14:47:05 11/19/19 18 11/18/2017 CMP, serum or plasm a potassium 4.5 mmol/ L (3.6-5 .2) Not Available [facility] [address] [place], [address], 11/18/2017 14:47:05 11/19/19 18 11/18/2017 CMP, serum or plasm a chloride 103 mmol/ L (98-10 7) Not Available [facility] [address] [place], [address], 11/18/2017 14:47:05 11/19/19 18 11/18/2017 CMP, serum or plasm a bicarbonate 29 mmol/ L (22-29 ) Not Available [facility] [address] [place], [address], 11/18/2017 14:47:05 11/19/19 18 11/18/2017 CMP, serum or plasm a anion gap 10 (4-17) Not Available [facility] [address] [place], [address], 11/18/2017 14:47:05 11/19/19 18 11/18/2017 CMP, serum or plasm a albumin 3.9 gm/dL (3.4-4 .8) Not Available [facility] [address] [place], [address], 11/18/2017 14:47:05 11/19/19 18 11/18/2017 CMP, serum or plasm a calcium 9.0 mg/dL (8.6-1 0.5) Not Available [facility] [address] [place], [address], 11/18/2017 14:47:05 11/19/19 18 11/18/2017 CMP, serum or plasm a bilirubin,to julieta 0.2 mg/dL (0-1.2 ) Not Available [facility] [address] [place], [address], 11/18/2017 14:47:11/19/19 18 11/18/2017 CMP, serum or plasm a total protein 6.6 gm/dL (6.2-8 .2) Not Available [facility] [address] [place], [address], 11/18/2017 14:47:05 11/19/19 18 11/18/2017 CMP, serum or plasm a Ag ratio 1.4 Not Available [facility] [address] [place], [address], 11/18/2017 14:47:05 11/19/19 18 11/18/2017 CMP, serum or plasm a AST 12 U/L (0-32) Not Available [facility] [address] [place], [address], 11/18/2017 14:47:05 11/19/19 18 11/18/2017 CMP, serum or plasm a alk phos 108 U/L (35-10 4) high Not Available [facility] [place], [address], 11/18/2017 14:47:11/19/19 18 11/18/2017 CMP, serum or plasm a ALT 23 U/L (0-33) Not Available [facility] [address] [place], [address], 11/18/2017 14:47:05 11/19/19 18 11/18/2017 CMP, serum [...] Not Available [facility] [address] [place], [address], 11/18/2017 14:47:05 11/19/19 18 11/18/2017 CMP, serum [...] Available [facility] [address] [place], [address], 11/18/2017 14:47:05 11/19/19 18 11/18/2017 lipid panel , serum cholesterol, total 142 mg/dL (<200) Not Available [facility] [address] [place], [address], 11/18/2017 14:47:06 11/19/19 18 11/18/2017 lipid panel , serum triglyceride 123 mg/dL (<150) Not Available [facility] [address] [place], [address], 11/18/2017 14:47:06 11/19/19 18 11/18/2017 lipid panel , serum HDL chol 42 mg/dL (>39) Not Available [facility] [address] [place], [address], 11/18/2017 14:47:06 11/19/19 18 11/18/2017 lipid panel , serum LDL cholesterol, calculated 75 mg/dL (0-130 ) Not Available [facility] [address] [place], [address], 11/18/2017 14:47:06 11/19/19 18 11/18/2017 lipid panel , serum non HDL cholesterol (calc) 100 mg/dL (<160) Not Available [facility] [address] [place], [address], 11/18/2017 14:47:06 09/25/19 17 09/23/2016 US, blessing y No observ ation record ed. [email or web address] Not Available 17:51:26 01/08/20 17 01/06/2017 XR, lumbo sacra l spine No observ ation record ed. [email or web address] [facility] [address] [facility] [address], [place], [address], 01/09/2017 14:52:34 01/08/20 17 01/06/2017 XR, sacro iliac joint (s) No observ ation record ed. [email or web address] [facility] [address] [facility] [address], [place], [address], 01/09/2017 14:52:34 08/18/19 18 08/11/2017 MAMMO , [place], bilat eral No observ ation record ed. [email or web address] [facility] [address] [place], [address], 08/17/2017 16:21:15 Result Notes None recorded. Problems Name Problem SNOMED Code Status Onset Date Resolution Date Notes Provider Name and Address Organization Details Recorded Time [facility] jim [id number] Active Thalia emmanuel [facility] 8 14:05:25 Hyperlip idemia 53179324 Active Thalia emmanuel [facility] 8 14:05:25 Diabetes mellitus 85736045 Completed 11/16/2017 Jeannie Metz PA-C [address] [facility] [address], [place], [address] , [facility] 8 09:55:17 Low back pain 206860776 Completed 08/21/2016 Dyan emmanuel [facility] 7 08:56:16 Gastroes ophageal reflux disease 439697669 Active Thalia emmanuel [facility] 8 14:05:25 Acute bronchit is 15296124 Completed 200711/22/2013 RECORDED 02/01/20 08 10:12AM BY PASCUAL PUTNAM MA, ANNOTATI ON/DAYNE emmanuel [facility] 6 12:21:01 Acute pharyngi tis 496152455 Completed 201211/22/2013 RECORDED 11/10/19 13 9:52AM BY MALICK HILL MA, ANNOTATI ON/ADDEN DUM Kevin Elsy'Alessand ro null, [facility] 6 12:21:01 Chronic allergic conjunct ivitis 50389525 Completed 201211/22/2013 RECORDED 05/11/19 13 9:31AM BY MALICK HILL MA, ANNOTATI ON/ADDEN DUM Kevin D'Alessand ro null, [facility] 6 12:21:01 Allergy Completed 201111/22/2013 RECORDED 11/17/19 12 9:29AM BY IVETH OSUNA I, ANNOTATI ON/ADDEN DUM Kevin Elsy'Alessand ro null, [facility] 6 12:21:01 Examinat ion for suspecte d mental disorder Completed 201211/22/2013 RECORDED 11/10/19 13 9:52AM BY MALICK HILL MA, ANNOTATI ON/ADDEN DUM Kevin Elsy'Alessand ro null, [facility] 6 12:21:01 Screenin g for malignan t neoplasm of breast Completed 201111/22/2013 RECORDED 11/17/19 12 9:29AM BY JAYASHREE DOUGLASATI ON/ADDEN DUM Jessica Gomez MA null, [facility] 7 10:15:40 Screenin g for malignan t neoplasm of breast Completed 09/30/2016 Jessica Gomez MA null, [facility] 7 10:15:40 Screenin g for malignan t neoplasm of cervix Completed 201211/22/2013 RECORDED 05/11/19 13 9:31AM BY MALICK HILL MA, ANNOTATI ON/ADDEN DUM Dyan Braun MA null, [facility] 7 08:56:00 Constipa tion 61070822 Completed 08/21/2016 Dyan emmanuel, [facility] 7 08:55:40 Risk of exposure to communic able disease 553421933 Completed 201111/22/2013 RECORDED 11/17/19 12 9:29AM BY RICK DOUGLAS ON/[facility] Kevin evans null, [facility] 6 12:21:01 Renal disorder due to type 2 diabetes mellitus 173257837 Active Thalia emmanuel, [facility] 8 14:05:25 Dysfunct ional uterine bleeding Completed 201111/22/2013 STORY: SEVERE CRAMPING ; RECORDED 11/17/19 12 9:29AM BY [facility] Kevin evans null, [facility] 6 12:21:01 Divertic ulitis of colon 219437945 Active Thalia emmanuel, [facility] 8 14:05:25 Dysuria 26246576 Completed 09/16/2016 Dyan emmanuel, [facility] 7 15:45:17 Dysuria 33998143 Completed 201211/22/2013 RECORDED 05/11/19 13 9:31AM BY MALICK HILL MA, RICK ON/ Dyan emmanuel, [facility] 7 15:45:17 Follow-u p encounte r Completed 201211/22/2013 RECORDED 03/29/20 13 10:46AM BY EMMA SAGASTUME MA, [facility] Kevin emmanuel, [facility] 6 12:21:01 Influenz a vaccine needed 32568643354 06 Completed 08/21/2016 Dyan emmanuel [facility] 7 08:55:43 Influenz a vaccine needed 78395713438 06 Completed 200711/22/2013 RECORDED 08/05/19 08 10:33AM BY JEM CARDENAS, HISTORIC AL SUMMARY Dyan emmanuel, [facility] 7 08:55:43 Tobacco user 708862975 Completed 201211/22/2013 RECORDED 03/29/20 13 10:46AM BY EMMA SAGASTUME MA, ANNOTATI ON/ADDEN DUM Kevin Acosta'Alessand ro null, [facility] 6 12:21:01 History of clinical finding in subject 409597234 Completed 08/21/2016 Dyan emmanuel, [facility] 7 08:56:29 Adult health examinat ion Completed 201211/22/2013 RECORDED 06/24/19 13 8:51AM BY MALICK HILL MA, ANNOTATI ON/ADDEN DUM Kevin Acosta'Alessand ro null, [facility] 6 12:21:01 General examinat ion of patient Completed 200711/22/2013 RECORDED 02/01/20 08 10:12AM BY PASCUAL PUTNAM MA, ANNOTATI ON/ADDEN DUM Kevin Ac[place]'Alessand ro null, [facility] 6 12:21:01 Hirsutis m 958541562 Active Thalia Alvarez null, [facility] 8 14:05:25 Ingrowin g nail 248193010 Completed 201111/22/2013 RECORDED 11/17/19 12 9:29AM BY [facility] Kevin Acosta'Alessand ro null, [facility] 6 12:21:01 Laborato ry procedur e performe d 495769700 Completed 08/21/2016 Dyan emmanuel, [facility] 7 08:56:04 Menstrua tion finding Completed 201211/22/2013 RECORDED 03/29/20 13 10:46AM BY EMMA SAGASTUME MA, ANNOTATI ON/ADDEN DUM Kevin Henry ro null, [facility] 6 12:21:01 Dysmenor sanjay 450587770 Completed 201211/22/2013 RECORDED 03/29/20 13 10:47AM BY EMMA SAGASTUME MA, ANNOTATI ON/ADDEN DUM Kevin Henry ro null, [facility] 6 12:21:01 Fibromyo sitis 48010505 Completed 201111/22/2013 STORY: DUE TO ATORVAST ATIN (TOLERAT ES SIMVASTA TIN); RECORDED 03/17/20 12 2:26PM BY MALICK HILL MA, ANNOTATI ON/ADDEN [facility] Kevin Leiand ro null, [facility] 6 12:21:01 Administ ration of bacteria l and viral vaccine Completed 200711/22/2013 RECORDED 02/01/20 08 10:14AM BY PASCUAL PUTNAM MA, OFFICE VISIT Kevin Henry ro null, [facility] 6 12:21:01 Female genital organ symptoms 640562148 Completed 201211/22/2013 RECORDED 05/11/19 13 9:31AM BY MALICK HILL MA, [facility] Kevin Henry ro null, [facility] 6 12:21:01 Tobacco user 852986697 Active Thalia Alvarez cholo, [facility] 8 14:05:25 Polycyst ic ovaries Completed 201111/22/2013 RECORDED 11/17/19 12 9:29AM BY RICK DOUGLAS ON/ADDEN [facility] Kevin BanegasAlessand ro null, [facility] 6 12:21:01 Proteinu radha 36221114 Active Thalia Alvarez null, [facility] 8 14:05:25 Proteinu radha 32007753 Completed 201111/22/2013 RECORDED 11/17/19 12 9:29AM BY RICK DOUGLAS ON/ADDEN DUM Kevin Leiand ro null, [facility] 6 12:21:01 Eruption [id number] Completed 201111/22/2013 IMPRESSI ON: PT WITH PROGRESS PAMELA HIGHLY PRURITIC RASH X PAST WEEK, HANDS, FEET NOW TORSO BREAST AND ABDO AFFECTED . 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 HIGHLY SUSPICIO US FOR SCABIES INFX. ADVISED RE USE OF MED, CLEANING AND LAUNDERI NG AT HOME. OOW X TODAY AND W/E, NOTE PROVIDED . TO CALL IF RASH PERSISTS AFTER TX.; RECORDED 11/17/19 12 9:29AM BY RICK DOUGLAS ON/ADDEN DUM Kevin Leiand ro null, [facility] 6 12:21:01 Sleep apnea [id number] Completed 201111/22/2013 RECORDED 11/17/19 12 9:29AM BY RICK DOUGLAS ON/ADDEN DUM Kevin Henry ro null, [facility] 6 12:21:01 Tobacco dependen ce syndrome 12862369 Completed 201111/22/2013 RECORDED 06/21/19 12 11:13AM BY PASCUAL PUTNAM MA, ANNOTATI ON/ADDEN DUM Kevin Leiand ro null, [facility] 6 12:21:01 Type 2 diabetes mellitus without complica tion 473410552 Completed 201111/22/2013 RECORDED 11/17/19 12 9:29AM BY RICK DOUGLAS ON/ADDEN DUM Kevin Acosta'Alessand ro null, [facility] 6 12:21:01 Uncontro lled type 2 diabetes mellitus 005379383 Completed 200811/22/2013 RECORDED 05/30/19 09 7:36AM BY PASCUAL PUTNAM MA, ANNOTATI ON/ADDEN DUM Kevin evans null, [facility] 6 12:21:01 Urinary tract infectio us disease 56682204 Completed 201211/22/2013 STORY: CT NEG @ [facility]/N O PATHOLOG Y. F/U PRN; RECORDED 03/29/20 13 10:46AM BY EMMA SAGASTUME MA, ANNOTATI ON/ADDEN DUM Kevin evans null, [facility] 6 12:21:01 Vaginiti s and vulvovag initis Completed 201211/22/2013 RECORDED 06/24/19 13 8:51AM BY MALICK HILL MA, JAYASHREEATI ON/ADDEN DUM Dyan Braun MA null, [facility] 7 08:55:57 Candidal vulvovag initis 60336395 Completed 200711/22/2013 RECORDED 02/01/20 08 10:12AM BY PASCUAL PUTNAM MA, ANNOTATI ON/ADDEN DUM Kevin evans null, [facility] 6 12:21:01 Acute bronchit is 93686287 Completed 200712/12/2013 RECORDED 02/01/20 08 10:12AM BY PASCUAL PUTNAM MA, JAYASHREEATI ON/ADDEN MEGAN evans null, [facility] 6 12:21:01 Acute pharyngi tis 290357614 Completed 201212/12/2013 RECORDED 11/10/19 13 9:52AM BY MALICK HILL MA, ANNOTATI ON/ADDGLENN evans null, [facility] 6 12:21:01 Chronic allergic conjunct ivitis 60130578 Completed 201212/12/2013 RECORDED 05/11/19 13 9:31AM BY MALICK HILL MA, ANNOTATI ON/ADDEN DUM eKvin evans null, [facility] 6 12:21:01 Allergy Completed 201112/12/2013 RECORDED 11/17/19 12 9:29AM BY JAYASHREE DOUGLASATI ON/ADDEN DUM Kevin evans null, [facility] 6 12:21:01 Examinat ion for suspecte d mental disorder Completed 201212/12/2013 RECORDED 11/10/19 13 9:52AM BY MALICK HILL MA, RICK ON/ADDEN DUM Kevin Henry ro null, [facility] 6 12:21:01 Backache 148617808 Completed 08/21/2016 Dyan emmanuel, [facility] 7 08:55:50 Screenin g for malignan t neoplasm of breast Completed 201112/12/2013 RECORDED 11/17/19 12 9:29AM BY RICK DOUGLAS ON/ADDEN DUM JEM Barnett, [facility] 7 10:15:40 Screenin g for malignan t neoplasm of cervix Completed 08/21/2016 Dyan emmanuel, [facility] 7 08:56:00 Screenin g for malignan t neoplasm of cervix Completed 201212/12/2013 RECORDED 05/11/19 13 9:31AM BY MALICK HILL MA, ANNOTATI ON/ADDEN DUM Dyan emmanuel [facility] 7 08:56:00 Risk of exposure to communic able disease 817045953 Completed 201112/12/2013 RECORDED 11/17/19 12 9:29AM BY RICK DOUGLAS ON/ADDEN DUM Kevin emmanuel, [facility] 6 12:21:01 Depressi ve disorder 95639453 Completed 05/28/2014 Kevin emmanuel, [facility] 6 12:21:01 Dysfunct ional uterine bleeding Completed 201112/12/2013 STORY: SEVERE CRAMPING ; RECORDED 11/17/19 12 9:29AM BY RICK DOUGLAS ON/ADDEN DUM Kevin evans null, [facility] 6 12:21:01 Follow-u p encounte r Completed 201212/12/2013 RECORDED 03/29/20 13 10:46AM BY EMMA SAGASTUME MA, JAYASHREEATI ON/ADDEN DUM Kevin evans null, [facility] 6 12:21:01 Influenz a vaccine needed [id number] 06 Completed 200912/12/2013 DATE: 04/23/20 10; RECORDED 11/16/19 14 12:57PM BY PASCUAL PUTNAM MA, JAYASHREEATI ON/ADDEN DUM Dyan Braun MA null, [facility] 7 08:55:43 Tobacco user 105126980 Completed 201212/12/2013 RECORDED 03/29/20 13 10:46AM BY EMMA SAGASTUME MA, RICK ON/ADDEN DUM Kevin evans null, [facility] 6 12:21:01 Adult health examinat ion Completed 201212/12/2013 RECORDED 06/24/19 13 8:51AM BY MALICK HILL MA, RICK ON/ADDEN MEGAN evans null, [facility] 6 12:21:01 General examinat ion of patient Completed 200712/12/2013 RECORDED 02/01/20 08 10:12AM BY PASCUAL PUTNAM MA, RICK ON/ADDEN DUM Kevin evans null, [facility] 6 12:21:01 Diana painting 779012642 Completed 201112/12/2013 RECORDED 11/17/19 12 9:29AM BY IVETH OSUNA I, ANNOTATI ON/ADDEN DUM Kevin evans null, [facility] 6 12:21:01 Laborato ry procedur e performe d 495335882 Completed 201312/12/2013 RECORDED 11/16/19 14 12:57PM BY PASCUAL PUTNAM MA, ANNOTATI ON/ADDEN DUM Dyan Braun MA null, [facility] 7 08:56:04 Low back pain 533987805 Completed 201312/12/2013 RECORDED 11/16/19 14 12:56PM BY PASCUAL PUTNAM MA, ANNOTATI ON/ADDEN DUM Dyan Braun MA null, [facility] 7 08:56:16 Menstrua tion finding Completed 201212/12/2013 RECORDED 03/29/20 13 10:46AM BY EMMA SAGASTUME MA, ANNOTATI ON/ADDEN DUM Kevin evans null, [facility] 6 12:21:01 Dysmenor sanjay [id number] Completed 201212/12/2013 RECORDED 03/29/20 13 10:47AM BY EMMA SAGASTUME MA, ANNOTATI ON/ADDEN DUM Kevin evans null, [facility] 6 12:21:01 Fibromyo sitis 42352348 Completed 201112/12/2013 STORY: DUE TO ATORVAST ATIN (TOLERAT ES SIMVASTA TIN); RECORDED 03/17/20 12 2:26PM BY MALICK HILL MA, RICK ON/ADDEN DUM Kevin evans null, [facility] 6 12:21:01 Administ ration of bacteria l and viral vaccine Completed 200712/12/2013 RECORDED 02/01/20 08 10:14AM BY PASCUAL PUTNAM MA, OFFICE VISIT Kevin emmanuel, [facility] 6 12:21:01 Female genital organ symptoms 776783473 Completed 201212/12/2013 RECORDED 05/11/19 13 9:31AM BY MALICK HILL MA, RICK ON/ADDEN DUM Kevin Henry ro null, [facility] 6 12:21:01 Polycyst ic ovaries Completed 201112/12/2013 RECORDED 11/17/19 12 9:29AM BY RICK DOUGLAS ON/ADDEN DUM Kevin Henry ro null, [facility] 6 12:21:01 Eruption [id number] Completed 201112/12/2013 IMPRESSI ON: PT WITH [employer]AMELA HIGHLY PRURITIC RASH X PAST WEEK, HANDS, FEET NOW TORSO BREAST AND ABDO AFFECTED . 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 HIGHLY SUSPICIO US FOR SCABIES INFX. ADVISED RE USE OF MED, CLEANING AND LAUNDERI NG AT HOME. OOW X TODAY AND W/E, NOTE PROVIDED . TO CALL IF RASH PERSISTS AFTER TX.; RECORDED 11/17/19 12 9:29AM BY RICK DOUGLAS ON/ADDEN DUM Kevin Henry ro cholo, [facility] 6 12:21:01 Sleep apnea 34678437 Completed 201112/12/2013 RECORDED 11/17/19 12 9:29AM BY RICK DOUGLAS ON/ADDEN DUM Kevin Henry ro null, [facility] 6 12:21:01 Tobacco dependen ce syndrome 78398371 Completed 201112/12/2013 RECORDED 06/21/19 12 11:13AM BY PASCUAL PUTNAM MA, RIKC ON/ADDEN DUM Kevin Henry ro null, [facility] 6 12:21:01 Type 2 diabetes mellitus without complica tion 961467573 Completed 201112/12/2013 RECORDED 11/17/19 12 9:29AM BY IVETH OSUNA [facility], [facility] 6 12:21:01 Uncontro lled type 2 diabetes mellitus 345979623 Completed 200812/12/2013 RECORDED 05/30/19 09 7:36AM BY PASCUAL PUTNAM MA, ANNOTATI ON/ADDEN DUM Kevin evans null, [facility] 6 12:21:01 Urinary tract infectio us disease 95435910 Completed 201212/12/2013 STORY: CT NEG @ [facility]/N O PATHOLOG Y. F/U PRN; RECORDED 03/29/20 13 10:46AM BY EMMA SAGASTUME MA, ANNOTATI ON/[facility] Kevin evans null, [facility] 6 12:21:01 Vaginiti s and vulvovag initis Completed 201212/12/2013 RECORDED 06/24/19 13 8:51AM BY MALICK HILL MA, ANNOTATI ON/ADDEN [facility] Dyan emmanuel, [facility] 7 08:55:57 Candidal vulvovag initis 03048492 Completed 200712/12/2013 RECORDED 02/01/20 08 10:12AM BY PASCUAL PUTNAM MA, ANNOTATI ON/[facility] Kevin evans null, [facility] 6 12:21:01 Acute vaginiti s 90969704 Completed 08/21/2016 Dyan emmanuel, [facility] 7 08:56:09 Vaginiti s 03996343 Completed 08/21/2016 Dyan emmanuel, [facility] 7 08:56:22 Spasm 85535067 Completed 08/21/2016 Dyan emmanuel, [facility] 7 08:56:33 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 Thalia Alvarez null, [facility] 8 14:05:25 Uncontro lled type 2 diabetes mellitus 291493395 Active Thlaia Alvarez null, [facility] 8 14:05:25 Obesity 404598214 Active Thalia Alvarez null, [facility] 8 14:05:25 Secondar y diabetes mellitus 7992854 Completed 11/16/2017 Jeannie Metz PA-C [address], [place], [address] , [facility] 8 09:55:23 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 84129545 Active Thalia Alvarez null, [facility] 8 14:05:25 Major depressi ve disorder 870596865 Active Thalia Alvarez null, [facility] 8 14:05:25 Pain in pelvis 46971736 Completed 08/21/2016 Dyan emmanuel, [facility] 7 08:56:20 Leukocyt osis 939061739 Active Thalia Alvarez null, [facility] 8 14:05:25 Steatosi s of liver 629430091 Active Thalia Alvarez null, [facility] 8 14:05:25 Shoulder joint pain 269614851 Completed 08/21/2016 Dyan emmanuel, [facility] 7 08:56:14 Chronic pain 11218662 Active Thalia Alvarez null, [facility] 8 14:05:25 Disorder of nervous system due to diabetes mellitus 275207597 Active Thalia Alvarez null, [facility] 8 14:05:25 Urinary incontin ence 832870419 Active Thalia emmanuel [facility] 8 14:05:25 Vaginiti s and vulvovag initis Completed 08/21/2016 Dyan emmanuel [facility] 7 08:55:57 Lateral epicondy litis 337749556 Active Thaliabienvenido emmanuel [facility] 8 14:05:25 Edema of the upper extremit y 911072677 Completed 08/21/2016 Dyan emmanuel [facility] 7 08:55:46 Insomnia disorder related to another mental disorder 96082901 Active 2017 Jeannie Metz PA-C [address], [facility] [place], [address] , [facility] 8 09:59:11 Chronic kidney disease stage 1 212131352 Active 2017 Shellie emmanuel [facility] 8 14:30:22 Problem Notes None recorded. Procedures Surgical History Date Name Laterality Status Provider Name and Address Organization Details Recorded Time 8 Drain/inj joint/bursa w/o us completed Wen Irizarry [facility] 10/27/2017 14:13:15 8 Back Surgery completed Wen Irizarry [facility] 10/01/2017 15:05:30 8 Orthopedic Surgery completed Adalgisa Marlow [facility] 10/01/2017 16:12:10 8 Most Recent Mammogram completed Thalia Alvarez [facility] 08/17/2017 16:21:29 8 Mammogram Screening completed Thalia Alvarez [facility] 08/17/2017 16:21:24 8 Inj paravert f jnt c/t 1 lev completed Thalia Alvarez [facility] 07/09/2017 15:02:16 7 Cystoscopy completed Deb Quick [facility] 03/19/2017 15:05:02 7 Chronic Pain Assessment completed Dyan Braun MA [facility] 08/21/2016 08:56:53 2 Date of Last Pap Smear completed Jessica Gomez MA [facility] 11/22/2013 10:36:18 Tubal Ligation completed Emigdio Carson [facility] [address], [place], [address], [facility] 11/22/2013 10:57:11 Imaging Results Imaging Date Name Status LastModified by Organiz ation Details LastModified Time 09/23/2016 US, kidney completed Information not available 09/24/2016 17:51:26 01/06/2017 XR, [facility] [address] [facility] [address] [place], [address], 01/09/2017 14:52:34 01/06/2017 XR, sacroiliac joint(s) [facility] [address] [facility] [address] [place], [address], 01/09/2017 14:52:34 08/11/2017 MAMMO, screening, bilateral completed [email or web address] [facility] [address] [place], [address], 08/17/2017 16:21:15 Procedure Notes None recorded. Medical Equipment None Reported. Allergies Allergen ID Allergen Name Allergen Category Reaction Reaction Severity Criticality Documentation Date Start Date Code Code System Note Provider Name and Address Organization Details Recorded Time 90935 Product containin g angiotens in-conver ting enzyme inhibitor (product) medicatio n cough Not available Not available 11/15/20132013 13561 009 SNOMED JEM Farfan, [facility] 4 15:39:36 28492 Byetta medicatio n other Not available Not available 11/15/20132013 19802 1 RxNorm Pascual Sheri-M JEM zaman null, [facility] 4 15:39:36 70336 Cymbalta medicatio n rash severe Not available 04/13/20142013 15330 4 RxNorm ? SJS from this med Aleida Van RN null, [facility] 4 10:43:02 03382 Medicinal product containin g penicilli n and acting as antibacte rial agent (product) medicatio n hives moderate Not available 09/19/2016 26857 05 SNOMED Kevin Lindsey lazara null, [facility] 7 11:26:10 Medications Name Sig Start Date [...] EMMA SAGASTUME MA, OFFICE VISIT;DR VINCENT JULIAN MONGOLIAN/NAMRATA RINE Not Available Not Available Not Available [...] active RECORDED 05/31/19 14 11:05AM BY JESSICA GOMZE, OFFICE VISIT; Not Available Not Available Not [...] Not Available Not Available Not Available Pen [place] THREE TIMES DAILY 05/28 completed RECORDED 05/28/19 12 3:04PM BY RICK GUERRIER ON/ADDEN DUM; Not Available Not Available Not Available BD Insulin Syringe Ult-Fine II 1 mL 31 gauge x 5/16 active Not Available Not Available Not Available FreeStyle [place] kit QD active Not Available Not Available [...] Available Not Available Not Available Fluarix Quad 8934-4182 (PF) 60 mcg (15 mcg x 4)/0.5 [...] % 98 % 89 /min 98.3 [degF] 889110. 31 g 35.9 kg/m2 119 mm[Hg] 63 mm[Hg] Jessica Gomez [facility] 7 10:23:05 Date Recorded Body height Body mass index (BMI) Body weight Heart rate Oxygen saturation Oxygen saturation in Arterial blood by Pulse oximetry Body temperature Systolic blood pressure Diastolic blood pressure Provider Name and Address Organization Details Last Updated DateTime 7 167.64 cm 35 kg/m2 18340.5 4 g 103 /min 97 % 97 % 98 [degF] 134 mm[Hg] 78 mm[Hg] Iveth Sorensen [facility] [place] 7 14:41:13 Date Recorded Body height Body mass index (BMI) Body weight Heart rate Oxygen saturation Oxygen saturation in Arterial blood by Pulse oximetry Body temperature Systolic blood pressure Diastolic blood pressure Provider Name and Address Organization Details Last Updated DateTime 7 167.64 cm 35.2 kg/m2 58366.8 4 g 71 /min 99 % 99 % 97.1 [degF] 127 mm[Hg] 81 mm[Hg] Dyan Braun MA [facility] 7 09:35:08 Date Recorded Body height Body mass index (BMI) Body weight Oxygen saturation Oxygen saturation in Arterial blood by Pulse oximetry Heart rate Systolic blood pressure Diastolic blood pressure Provider Name and Address Organization Details Last Updated DateTime 8 167.64 cm 35.6 kg/m2 48640.4 2 g 97 % 97 % 85 /min 122 mm[Hg] 77 mm[Hg] Dyan Braun MA [facility] 8 10:02:08 Date Recorded Body height Body mass index (BMI) Body weight Body temperature Oxygen saturation Oxygen saturation in Arterial blood by Pulse oximetry Heart rate Systolic blood pressure Diastolic blood pressure Provider Name and Address Organization Details Last Updated DateTime 8 167.64 cm 35.1 kg/m2 62199.3 4 g 97.4 [degF] 96 % 96 % 85 /min 122 mm[Hg] 78 mm[Hg] Wen Irizarry [facility] 8 09:26:56 Social History Question Answer Notes LastModified by Organizat ion Details LastModified Time Tobacco Smoking Status Current Every Day Smoker Patient did quit, after accident she started again Emma emmanuel [facility] 11/16/2014 12:59:47 Do You Have An Advance Directive? No Information not available 12/14/2015 What Is Your Level Of Alcohol Consumption? None [email or web address] Information not available 11/22/2013 Is Blood Transfusion Acceptable In An Emergency? Yes Information not available 11/16/2014 What Is Your Level Of Caffeine Consumption? Occasional Mostly Coffee Sometimes Soda [email or web address] Information not available 11/22/2013 How Much Tobacco Do You Chew? None [email or web address] Information not available 11/22/2013 Are You Currently Employed? No Information not available 11/16/2014 Are You Deaf Or Do You Have Serious Difficulty Hearing? No [email or web address] Information not available 11/22/2013 What Type Of Diet Are You Following? DIABETIC Information not available 11/16/2014 Which Illicit Or Recreational Drugs Have You Used? N/A Information not available 11/16/2014 Have There Been Any Changes To Your Family Or Social Situation? No [email or web address] Information not available 11/22/2013 Are There Any Guns Present In Your Home? No Information not available 11/22/2013 Single Or Multi-level Home/work? Single Level Home [email or web address] Information not available 11/22/2013 Legally Blind In One Or Both Eyes? No [email or web address] Information not available 11/22/2013 Live Alone Or With Others? Alone [email or web address] Information not available 11/22/2013 Do You Take Precautions To Prevent Distracted Driving? Yes Information not available 08/03/2017 How Often Do You Need To Have Someone Help You When You Read Instructions, Pamphlets, Or Other Written Material From Your Doctor Or Pharmacy? Never Information not available 12/14/2015 Have You Served In The ? No Information not available 08/03/2017 Marital Status [email or web address] Informatio n not available 11/22/2013 What Was The Date Of Your Most Recent Tobacco Screening? 08/03/2017 Information not available 11/25/2018 How Many Children Do You Have? 2 Dtr Marialuisa And dtr [place] [email or web address] Information not available 12/14/2015 Difficulty Reading? No [email or web address] Information not available 11/22/2013 Seat Belts Used Routinely Yes Information not available 11/16/2014 Smoke Alarm In Home Yes [email or web address] Information not available 11/22/2013 At What Age Did You Start Smoking Tobacco? 16 Information not available 11/16/2014 Are You Passively Exposed To Smoke? No [email or web address] Information not available 11/22/2013 How Much Tobacco Do You Smoke? 1 PPD Information not available 11/16/2014 General Stress Level High Information not available 11/22/2013 Do You Use Any Illicit Or Recreational Drugs? No [email or web address] Information not available 11/22/2013 Do You Use Sunscreen Routinely? No Information not available 11/16/2014 How Many Years Have You Smoked Tobacco? 20 [email or web address] Information not available 11/22/2013 Difficulty Watching TV? No [email or web address] Information not available 11/22/2013 Sex: Unknown Functional Status Question Answer Note LastModified by Organizat ion Details LastModified Time Do you have difficulty walking or climbing stairs? Yes Information not available 11/22/2013 Difficulty driving at night? No [email or web address] Information not available 11/22/2013 Do you have difficulty doing errands alone? No [email or web address] Information not available 11/22/2013 Are you able to care for yourself? Yes Marialuisa is proxy Information not available 12/14/2015 Do you have difficulty dressing or bathing? No [email or web address] Information not available 11/22/2013 What is your exercise level? None Information not available 11/16/2014 Mental Status Question Answer Note LastModified by Organization D etails LastModified Time Do you have difficulty concentrating, remembering or making decisions? No [email or web address] Information no t available 11/22/2013 Family History [...] Cancer N mrsa exposure N Hypothyroidism N Depression Y COPD N Lung Disease N Developmental or Behavioral Disorders N Defects or Inherited Disease N Breast Problem N Anesthesia Complications N Headaches/Migraines N Varicose Veins N Anxiety Disorder N Muscle, Joint, or Bone Problems Y Obesity N Vision or Eye Problems N Arthritis N Head Injury/Concussion N Polyps N Infertility N Mental Disorder N Congenital Anomalies N [...] trivalent, PF 5 completed Thalia Alvarez null, [facility] 08/11/2017 14:05:20 pneumococcal polysaccharide PPV23 4 completed Thalia Alvarez null, [facility] 08/11/2017 14:05:20 Influenza, split virus, trivalent, preservative 6 completed Thalia Alvarez null, [facility] 08/11/2017 14:05:20 Tdap 8 completed Thalia Alvarez null, [facility] 08/11/2017 14:05:20 Influenza, split virus, quadrivalent, PF 7 completed Not Available [facility] 05/[facility] 02:22:13 pneumococcal polysaccharide PPV23 7 completed Thalia Alvarez null, [facility] 08/11/2017 14:05:20 Influenza, split virus, trivalent, preservative 8 completed Thalia Alvarez null, [facility] 08/11/2017 14:05:20 Influenza, split virus, trivalent, preservative 8 completed Thalia Alvarez null, [facility] 08/11/2017 14:05:20 Tdap 8 completed Thalia Alvarez null, [facility] 08/11/2017 14:05:20 Influenza, split virus, trivalent, preservative 0 completed Thalia Alvarez null, [facility] 08/11/2017 14:05:20 Influenza, split virus, trivalent, preservative 2 completed Thalia Alvarez null, [facility] 08/11/2017 14:05:20 Influenza, split virus, trivalent, preservative 3 completed Thalia emmanuel [facility] 08/11/2017 14:05:20 Past Encounters Encounter ID Performer Location Encounter Start Date Encounter Closed Date Diagnosis/Indication Diagnosis SNOMED-CT Code Diagnosis ICD10 Code 1171 [address] [place] [address] 11/22/2013 09:54:55 11/22/2013 11:27:21 Adult health examination 371738348 Diabetes mellitus 510068 09 Low back pain 564782619 Essential hypertension 95710835 Hyperlipidemia 45760506 Gastroesop hageal reflux disease 886497941 [id number] autoEComm erce [address] [facility] [place] [address] 04/23/2010 00:00:00 [id number] autoEComm erce [address] [facility] [place] [address] 04/23/2010 00:00:00 [id number] auto[employer] erce [address] [facility] [place] [address] 04/23/2010 00:00:00 [id number] auto[employer]Comm erce [address] [facility] [place] [address] 09/27/2010 00:00:00 [id number] auto[employer]Comm erce [address] [facility] [place] [address] 10/22/2010 00:00:00 [id number] autoEComm erce [address] [facility] [place] [address] 10/22/2010 00:00:00 [id number] auto[employer]Comm erce [address] [facility] [place] [address] 04/29/2011 00:00:00 [id number] auto[employer]Comm erce [address] [facility] [place] [address] 04/29/2011 00:00:00 [id number] autoEComm erce [address] [facility] [place] [address] 06/21/2011 00:00:00 [id number] autoEComm erce [address] [place] [address] 08/27/2011 00:00:00 [id number] auto[facility] erce [address] [place] [address] 08/27/2011 00:00:00 [id number] autoEComm erce [address] [place] [address] 10/28/2011 00:00:00 [id number] autoEComm erce [address] [place] [address] 10/28/2011 00:00:00 [id number] autoEComm erce [address] [place] [address] 10/28/2011 00:00:00 [id number] autoEComm erce [address] [place] [address] 10/28/2011 00:00:00 [id number] autoEComm erce [address] [facility] [address] [place] [address] 11/01/2011 00:00:00 [id number] autoEComm erce [address] [facility] [address] [place] [address] 11/01/2011 00:00:00 [id number] autoEComm erce [address] [place] [address] 11/01/2011 00:00:00 [id number] autoEComm erce [address] [place] [address] 11/01/2011 00:00:00 [id number] autoEComm erce [address] [facility] [address] [place] [address] 11/17/2011 00:00:00 [id number] autoEComm erce [address] [facility] [place] [address] 11/17/2011 00:00:00 [id number] autoEComm erce [address] [place] [address] 11/17/2011 00:00:00 [id number] auto[facility]Comm erce [address] [address] [place] [address] 11/17/2011 00:00:00 [id number] [employer] [address] [place] [address] 03/17/2012 00:00:00 [id number] [employer] [address] [place] [address] 2 03/17/2012 00:00:00 [id number] [employer] [address] [place] [address] 2 03/17/2012 00:00:00 [id number] [employer]ce [address] [facility] [address] [place] [address] 2 05/11/2012 00:00:00 [id number] [employer] [address] [place] [address] 06/24/2012 00:00:00 [id number] [employer] [address] [place] [address] 2 06/24/2012 00:00:00 [id number] [employer] [address] [place] [address] 2 06/24/2012 00:00:00 [id number] [employer] [address] [place] [address] 2 07/24/2012 00:00:00 [id number] [employer] [address] [place] [address] 2 07/24/2012 00:00:00 [id number] [employer] [address] [place] [address] 2 07/24/2012 00:00:00 [id number] [employer] [address] [place] [address] 2 07/24/2012 00:00:00 [id number] [employer] [address] [place] [address] 2 11/09/2012 00:00:00 [id number] [employer] [address] [place] [address] 2 11/09/2012 00:00:00 [id number] [employer] [address] [place] [address] 2 03/29/2013 00:00:00 [id number] [employer] [address] [place] [address] 2 03/29/2013 00:00:00 [id number] [employer] [address] [place] [address] 2 03/29/2013 00:00:00 [id number] [employer] [address] [place] [address] 2 05/31/2013 00:00:00 [id number] [employer] [address] [place] [address] 2 05/31/2013 00:00:00 [id number] [employer] [address] [place] [address] 2 05/31/2013 00:00:00 [id number] [employer] [address] [place] [address] 2 05/31/2013 00:00:00 [id number] [employer] [address] [place] [address] 2 10/10/2013 00:00:00 [id number] [employer] [address] [place] [address] 2 10/10/2013 00:00:00 [id number] [employer] [address] [place] [address] 2 10/10/2013 00:00:00 [id number] [employer] [address] [place] [address] 2 10/10/2013 00:00:00 [id number] [employer] [address] [place] [address] 2 11/15/2013 00:00:00 [id number] [employer] [address] [place] [address] 2 11/15/2013 00:00:00 [id number] [employer] [address] [place] [address] 2 11/15/2013 00:00:00 [id number] [employer] [address] [place] [address] 2 11/15/2013 00:00:00 [id number] [employer] [address] [facility] [address] [place] [address] 12/01/2006 00:00:00 [id number] [employer] erce [address] [facility],[address] [place] [address] 2 12/01/2006 00:00:00 [id number] [employer] erce [address] [facility] [address] [place] [address] 12/01/2006 00:00:00 [id number] [employer]ce [address] [facility] [address] [place] [address] 2 12/15/2006 00:00:00 [id number] [employer] [address] [facility] [address] [place] [address] 2 05/06/2007 00:00:00 [id number] [employer] [address] [facility] [address] [place] [address] 2 05/06/2007 00:00:00 [id number] [employer]ce [address] [facility] [address] [place] [address] 2 08/05/2007 00:00:00 [id number] [employer] er[employer] [address] [place] [address] 2 08/05/2007 00:00:00 [id number] [employer] er[employer] [address] [place] [address] 2 08/05/2007 00:00:00 [id number] [employer]ce [address] [facility] [address] [place] [address] 11/02/2007 00:00:00 [id number] [employer] erce [address] [facility] [address] [place] [address] 2 11/19/2007 00:00:00 [id number] [employer]ce [address] [facility] [address] [place] [address] 2 11/19/2007 00:00:00 [id number] [employer] erce [address] [facility] [address] [place] [address] 11/19/2007 00:00:00 [id number] [employer] [address] [facility],[address] [place] [address] 2 11/19/2007 00:00:00 [id number] [employer] erce [address] [facility],[address] [place] [address] 2 12/03/2007 00:00:00 [id number] [employer]ce [address] [facility],[address] [place] [address] 2 12/03/2007 00:00:00 [id number] [employer] erce [address] [facility] [address] [place] [address] 2 12/03/2007 00:00:00 [id number] [employer] erce [address] [facility],[address] [place] [address] 2 12/03/2007 00:00:00 [id number] [employer] [address] [facility] [address] [place] [address] 2 01/28/2008 00:00:00 [id number] [employer] erce [address] [facility],[address] [place] [address] 2 01/28/2008 00:00:00 [id number] [employer] er[employer] [address] [place] [address] 2 01/28/2008 00:00:00 [id number] [employer] [address] [place] [address] 2 02/01/2008 00:00:00 [id number] [employer] er[employer] [address] [place] [address] 2 05/30/2008 00:00:00 [id number] [employer] erce [address] [place] [address] 2 05/30/2008 00:00:00 [id number] [employer] [address] [place] [address] 2 05/30/2008 00:00:00 [id number] [employer] erce [address] [facility],[address] [place] [address] 2 05/30/2008 00:00:00 [id number] [employer] erce [address] [facility],[address] [place] [address] 2 08/29/2008 00:00:00 [id number] [employer] erce [address] [facility] [address] [place] [address] 2 08/29/2008 00:00:00 [id number] [employer] erce [address] [facility],[address] [place] [address] 2 08/29/2008 00:00:00 [id number] [employer]ce [address] [facility] [address] [place] [address] 2 08/29/2008 00:00:00 [id number] [employer] erce [address] [facility] [address] [place] [address] 2 03/20/2009 00:00:00 [id number] [employer] [address] [facility],[address] [place] [address] 2 03/20/2009 00:00:00 [id number] [employer] er[employer] [address] [place] [address] 2 03/20/2009 00:00:00 [id number] [employer] erce [address] [facility],[address] [place] [address] 03/20/2009 00:00:00 [id number] [employer] erce [address] [facility],[address] [place] [address] 2 07/11/2009 00:00:00 [id number] [employer] [address] [facility],[address] [place] [address] 2 07/11/2009 00:00:00 [id number] [employer] erce [address] [facility],[address] [place] [address] 2 07/11/2009 00:00:00 [id number] [employer] er[employer] [address] [facility],[address] [place] [address] 12/18/2009 00:00:00 [id number] Aleida Van RN Main Office [address] [address] [place] [address] 02/24/2014 15:25:31 02/24/2014 16:22:20 Diabetes mellitus 45727517 Essential hypertension 33438570 [id number] Dyan Braun MA Main Office [address] [facility] [address] [place] [address] 04/19/2014 12:44:50 04/19/2014 13:33:59 Acute vaginitis 83167252 Drug-induc ed Lucas-Christopher syndrome 524314040 Follow-up encounter 3909 81264 Essential hypertension 33147115 Diabetes mellitus 194853 09 [id number] Emma Sagastume Main Office [address] [facility] [address] [place] [address] 05/29/2014 11:23:28 05/29/2014 12:09:24 Essential hypertension 78838845 Obesity 954216357 Renal diso rder due to type 2 diabetes mellitus 916058834 Degenerati on of lumbosacral intervertebral disc 03732711 Hyperlipidemia 04710229 [id number] Kevin evans Main Office [address] [facility] [address] [place] [address] 11/16/2014 12:38:15 11/16/2014 13:41:48 Adult health examination 652540481 Major depr essive disorder 033821257 Renal diso rder due to type 2 diabetes mellitus 788680549 Essential hypertension 76934509 [id number] Kevin evans Main Office [address] [address] [place] [address] 03/20/2015 15:28:47 03/20/2015 16:09:41 Pain in pelvis 61773594 R10.2 Leukocytosis 945762559 D 72.829 Steatosis of liver 49673 1007 K76.0 [id number] Kevin MakenzieMaida evans Main Office [address] [address] [place] [address] 05/24/2015 13:00:22 05/24/2015 14:12:21 Degeneration of lumbosacral intervertebral disc 42456152 M51.37 Shoulder joint pain 2679 49315 M25.512 Chronic pain 07212031 G8 9.29 Major depr essive disorder 373702760 F32.9 Renal diso rder due to type 2 diabetes mellitus 684981028 E11.29 [id number] Kevin evans Main Office [address] [address] [place] [address] 07/03/2015 08:40:32 07/03/2015 09:28:06 Constipation 25832326 K59.00 Chronic pain 92032488 G8 9.29 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 233267260 E11.40 Urinary incontinence 165 708782 R32 Vaginitis and vulvovaginitis 519622243 N76.0 [id number] Kevin evans Main [address] [address] [place] [address] 08/23/2015 10:36:51 08/23/2015 12:02:34 Lateral epicondylitis 440734704 M77.11 [id number] Gabriele Patel MD Main Office [address] [address] [place] [address] 09/15/2015 10:33:07 09/15/2015 11:53:40 Dysuria 71632128 R30.0 Renal diso rder due to type 2 diabetes mellitus 421497112 E11.22 [id number] Kevin evans Main Office [address] [address] [place] [address] 11/06/2015 11:15:55 11/06/2015 12:11:54 Edema of the upper extremity 368834982 R60.0 Major depr essive disorder 648374930 F33.9 Essential hypertension 98816289 I10 Chronic pain 60007632 G8 9.29 [id number] Kevin evans Main Office [address] [facility] [address] [place] [address] 12/14/2015 13:25:51 12/14/2015 14:48:40 Adult health examination 686728687 Z00.00 Renal diso rder due to type 2 diabetes mellitus 146119520 E11.22 N18.2 Degenerati on of lumbosacral intervertebral disc 99511142 M51.37 Chronic pain 94225897 G8 9.29 Major depr essive disorder 723454241 F33.9 [id number] Kevin evans Main Office [address] [facility] [address] [place] [address] 05/16/2016 14:15:45 05/16/2016 15:50:32 Neck pain 39778079 M54.2 Major depr essive disorder 628163796 F32.9 [id number] Shellie Chapman Main Office [address] [facility] [address] [place] [address] 08/21/2016 08:46:41 08/21/2016 09:49:52 Chronic pain 05000213 G89.29 Chronic ki dney disease stage 1 336024321 N18.1 Renal diso rder due to type 2 diabetes mellitus 974122071 E11.22 Hyperlipidemia 62332642 E78.5 Tobacco de pendence syndrome 13155859 F17.290 Chronic pain syndrome 37 5247645 G89.4 Hypertensi ve renal disease 62692274 I12.9 [id number] Kevin evans Main Office [address] [facility] [address] [place] [address] 09/19/2016 10:36:47 09/19/2016 11:34:36 Dysuria 63164848 R30.0 [id number] Kevin evans Main Office [address] [facility] [address] [place] [address] 09/26/2016 16:26:36 09/26/2016 17:08:20 [id number] Kevin evans Main Office [address] [address] [place] [address] 09/30/2016 10:13:28 09/30/2016 10:53:18 Urinary tract infectious disease 79833813 N39.0 Urinary incontinence 165 700054 R32 Uncontroll ed type 2 diabetes mellitus 627371440 E11.65 Essential hypertension 36742555 I10 Acute vaginitis 42030179 N76.0 [id number] Kevin evans Main Office [address] [address] [place] [address] 01/06/2017 14:04:42 01/06/2017 15:24:15 Lumbar radiculopathy 812259852 M54.16 [id number] Kevin evans Main Office [address] [address] [place] [address] 02/19/2017 09:25:09 02/19/2017 10:09:46 Needs influenza immunization 022491714 Z23 Urinary incontinence 165 690866 R32 [id number] Kevin evans Main Office [address] [address] [place] [address] 08/03/2017 09:45:53 08/03/2017 10:34:19 Adult health examination 746187149 Z00.00 Screening for malignant neoplasm of breast 210060389 Z12.39 Screening for malignant neoplasm of cervix 015396110 Z12.4 Administra tion of viral vaccine 78158086 Z23 Eczema 53632608 L30.9 Uncontroll ed type 2 diabetes mellitus 641352220 E11.65 Major depr essive disorder 232987664 F33.9 [id number] Main Office [address] [address] [place] [address] 11/16/2017 08:53:08 11/16/2017 10:19:36 Uncontrolled type 2 diabetes mellitus 797369275 E11.65 Renal diso rder due to type 2 diabetes mellitus 575709530 E11.22 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 509614000 E11.49 Hyperlipidemia 30175307 E78.00 Essential hypertension 91583716 I10 Major depr essive disorder 225184136 F32.9 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 19457739 F51.05 F99 Tobacco user 283039668 Z 72.0 Body mass index 30+ - obesity 238555709 E66.01 Z68.35 Chronic ki dney disease stage 1 418881504 N18.1 Health Concerns Section Related Observation LastModified by Organization Detai ls LastModified Time None Recorded Concern Status LastModified by Organization Details LastModified Time None Recorded Advance Directives Directive N: Payers Encounter Date Sequence Insurance Name Policy Number Policy Cordero Covered Member ID Cordero Member ID Guarantor Name 09/30/2016 1 [place] [employer] Mabeline Quick Buck [id number] Mabeline Quick Buck 09/30/2016 2 [place] Mabeline Quick-Pal obinna [id number] Mabeline Quick Buck 01/06/2017 1 [place] [employer] Mabeline Quick Buck [id number] Mabeline Quick Buck 01/06/2017 2 [place] Mabeline Quick-Pal [place] [id number] Mabeline Quick Buck 02/19/2017 1 [place] [employer] Mabeline Quick Buck [id number] Mabeline Quick Buck 02/19/2017 2 [place] Mabeline Quick-Pal [place] [id number] Mabeline Quick Buck 08/03/2017 1 [place] [employer] Mabeline Quick Buck [id number] Mabeline Quick Buck 08/03/2017 2 [place] Mabeline Quick-Pal [place] [id number] Mabeline Quick Buck 11/16/2017 1 [place] [employer] Mabeline Quick Buck [id number] Mabeline Quick Buck 11/16/2017 2 [place] Mabeline Quick-Pal [place] [id number] Mabeline Quick Buck Notes Date Note Type Note Provider Name and Address Organization Details Recorded Time 09/30/2016 text/html Hospitalization Contact RecordReported bypatient.Follow UpHospital[facility]; admit date: (Please enter in format [...] has resolved. glipizide was increased. Kevin emmanuel [facility] 09/30/2016 17:31:32 01/06/2017 text/html Generic HPI TemplateReported bypatient.Notes:left hip/ buttock pain that radiates down leg into toes with numbness and tingling. She feels pain is severe and was going to go to ED. She notes she has had back pain with a UTI before, her urine is yellow but bubbly appearing. She does have DM and endocrine is sending her to [place] for a test as she cannot take insulin. Kevin emmanuel [facility] 01/06/2017 16:37:31 02/19/2017 text/html Urinary FrequencyReported bypatient.Quality:symp toms worse during the day Severity:moderate Alleviating Factors:nothing gives relief; pt notes urinary incontinence. pt has leakage Aggravating Factors:tobacco use; pt quit smoking last year Associated Symptoms:no abdominal pain; no diarrhea; no hesitancy; no vomiting; pt has urine odor when she has UTI/ pt plans for bladder botox. see plan Kevin emmanuel [facility] 02/19/2017 09:59:55 08/03/2017 text/html Medicare Annual Wellness [...] good lighting in the home Kevin emmanuel [facility] 08/03/2017 10:31:16 11/16/2017 text/html 52 year old fema le for f/u. PT. 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 Sees endo at [facility] and is currently on V-Go pump and CGM with Istpika Joanne. A!c today is improved at 10.0% from 11.3% on last visit with endo . PT. has almaz for f/u. PT. has neuropathy. Does ot currently see blue leather setter. Overdue for diabetic eye exam. REports no vision changes.Major depression. Sees psych and counselor in [place]. On Citalopram 20 mg and Zolpidem for insomnia from them.Chronic pain and neuropathy. WAS ON Lyrica , but discontinued in May.HTN is stable on meds. PT. is overdue for labs.Hyperlipidemia. ON atorvastatin 10 mg. Overdue for labs.TObacco user. 12 or 13 cigarettes per day. STopped in the past with CHantix. Wants to try again. Shellie emmanuel [facility] 11/16/2017 14:31:49 OBGyn Episode No OBEpisode recorded.
== END 2024-04-22 08:06 | disposition home or self-care (01) ==
LOC: HO.HOSX 08:05
DX: M79.642 Pain in left hand (principal); M79.641 Pain in right hand; M65.341 Trigger finger, right ring finger; M65.332 Trigger finger, left middle finger
CPT/HCPCS: 73130; 99212

== ENCOUNTER 2024-04-22 12:43 | Outpatient (AMB) | payer OTHER, SELFPAY ==
--- NOTE | 2024-04-22 12:58 | MHC.OFFVIS ---
Intake Visit Reasons: Newprob- bilateral hand pain Intake Note: Estefania is a 58 year old right hand dominant female who presents today for a new problem visit for bilateral hand pain. Patient reports this has been on going for more that 5 years. Reports difficulty with lifting, gripping, grasping, and squeezing. States they are experiencing locking and cramping of the right ring finger and left middle finger. Hx of cortisone injections with relief. Has tried oxycondone for her knees with no relief for her hands. Hx of past hand surgeries 3 - 4 years ago (trigger finger release). Allergies amoxicillin [AMOXICILLIN] Allergy (Severe, Verified 04/22/24 13:04) ANAPHYLAXIS exenatide [From BYETTA] Allergy (Severe, Verified 04/22/24 13:04) ANAPHYLAXIS insulin detemir [From LEVEMIR U-100 INSULIN] Allergy (Severe, Verified 04/22/24 13:04) SORE THROAT insulin glargine [From LANTUS U-100 INSULIN] Allergy (Severe, Verified 04/22/24 13:04) YEAST INFECTION insulin glulisine [From APIDRA U-100 INSULIN] Allergy (Severe, Verified 04/22/24 13:04) UNKNOWN insulin lispro [From HUMALOG U-100 INSULIN] Allergy (Severe, Verified 04/22/24 13:04) HIVES insulin regular [From NOVOLIN R REGULAR U-100 INSULN] Allergy (Severe, Verified 04/22/24 13:04) MUSCLE PAIN lisinopril Allergy (Severe, Verified 04/22/24 13:04) Cough penicillin V Allergy (Severe, Verified 04/22/24 13:04) Rash pioglitazone [From ACTOS] Allergy (Severe, Verified 04/22/24 13:04) HIVES insulin isophane (NPH) [From HUMULIN N NPH U-100 INSULIN] Allergy (Intermediate, Verified 04/22/24 13:04) YEAST INFECTION duloxetine [From CYMBALTA] Allergy (Unknown, Verified 04/22/24 13:04) UNKNOWN tizanidine Adverse Reaction (Severe, Verified 04/22/24 13:04) Anxiety HPI HPI Newprob- bilateral hand pain: Details: Estefania is a 58 year old right hand dominant female who presents today for a new problem visit for bilateral hand pain. Patient reports this has been on going for more that 5 years. Reports difficulty with lifting, gripping, grasping, and squeezing. States they are experiencing locking and cramping of the right ring finger and left middle finger. Hx of cortisone injections with relief. Has tried oxycondone for her knees with no relief for her hands. 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 Neuro: Normal sensation of the tips of all digits of the bilateral hand at this time Vascular: Cap refill brisk Pain: Pain associated with locking and catching left middle and right ring fingers Tenderness to palpation of the A1 lucille of the right ring finger ROM: Visible and palpable locking and catching noted of the left middle and right ring fingers Patient is able to make a closed fist and extend all other digits of bilateral hands fully and without difficulty Skin: No lacerations or abrasions. Well-healed incision is noted over the left middle and ring fingers at the level of the A1 lucille General: No ecchymosis, erythema, or evidence of infection. Psych: Appears grossly normal Affect normal Attitude cooperative Results Reviewed Results Reviewed: X-rays obtained in the office today and independently reviewed by me, Rogers Tawnya PA-C, demonstrate no fracture or acute bony abnormality of bilateral hands. Assessment & Plan Assessment & Plan (1) Trigger finger, right ring finger: Code(s): M65.341 - Trigger finger, right ring finger Category: Medical (2) Trigger finger, left middle finger: Code(s): M65.332 - Trigger finger, left middle finger Category: Medical Plan 1. Trigger finger, right ring finger 2. Trigger finger, left middle finger Status post trigger release ?many years ago? Patient is educated about this condition Patient is educated about the treatment options available, namely steroid injections and/or surgery Patient was informed that due to the fact that she is status post trigger release on the left middle finger, we will likely need to perform an FDS tenotomy to be able to relieve her locking and catching However, the patient reports that her last A1c was over 10, and her blood sugar readings have been in the 200s consistently for the last 2 weeks Due to this, patient is informed that she is not a candidate for either surgery or injections, as her last A1c reading is indicative that she would have trouble healing surgical incisions, and her blood sugar readings indicate that her blood sugar could spike to dangerous levels if she is given a steroid injection Patient expresses understanding of this Patient will follow-up after her A1c is below 8.0, or if she has a 2 week stretch where her blood sugar readings are normal for discussion of further treatment options if indicated, sooner with any acute concerns Orders: Orders XR hand LT min 3V 24 M79.642 - Pain in left hand XR hand RT min 3V 04/22/24 M79.641 - Pain in right hand Coding Level of Care Code New Pt Level 3 (95326) Diagnoses Trigger finger, right ring finger M65.341 Trigger finger, left middle finger M65.332
== END 2024-04-22 13:26 | disposition home or self-care (01) ==
PROVIDERS: PCP Family Medicine
DX: M65.341 Trigger finger, right ring finger (principal); M65.332 Trigger finger, left middle finger
CPT/HCPCS: 99213

== ENCOUNTER 2024-04-28 11:39 | Outpatient (AMB) | payer OTHER, SELFPAY ==
--- NOTE | 2024-04-28 11:40 | A.OFFVIS_ITS ---
Vital Signs 04/28/24 11:49 Height 5 ft 6.5 in Weight 240 lb BMI 38.2 Intake Visit Reasons: PO RT knee 04/15/24 DR Intake Note: Estefania is a 58 year old male who presents today for his first post operative visit after undergoing a right knee arthroscopy on 04/15/24. She reports mild discomfort in her right knee. She denies any fevers or chills. Allergies amoxicillin [AMOXICILLIN] Allergy (Severe, Verified 04/28/24 11:41) ANAPHYLAXIS exenatide [From BYETTA] Allergy (Severe, Verified 04/28/24 11:41) ANAPHYLAXIS insulin detemir [From LEVEMIR U-100 INSULIN] Allergy (Severe, Verified 04/28/24 11:41) SORE THROAT insulin glargine [From LANTUS U-100 INSULIN] Allergy (Severe, Verified 04/28/24 11:41) YEAST INFECTION insulin glulisine [From APIDRA U-100 INSULIN] Allergy (Severe, Verified 04/28/24 11:41) UNKNOWN insulin lispro [From HUMALOG U-100 INSULIN] Allergy (Severe, Verified 04/28/24 11:41) HIVES insulin regular [From NOVOLIN R REGULAR U-100 INSULN] Allergy (Severe, Verified 04/28/24 11:41) MUSCLE PAIN lisinopril Allergy (Severe, Verified 04/28/24 11:41) Cough penicillin V Allergy (Severe, Verified 04/28/24 11:41) Rash pioglitazone [From ACTOS] Allergy (Severe, Verified 04/28/24 11:41) HIVES insulin isophane (NPH) [From HUMULIN N NPH U-100 INSULIN] Allergy (Intermediate, Verified 04/28/24 11:41) YEAST INFECTION duloxetine [From CYMBALTA] Allergy (Unknown, Verified 04/28/24 11:41) UNKNOWN tizanidine Adverse Reaction (Severe, Verified 04/28/24 11:41) Anxiety Medication List - Last Reconciled 04/28/24 by Westley Buitrago MD aspirin 81 mg PO DAILY atorvastatin 20 mg PO DAILY citalopram (Celexa) 10 mg PO DAILY fluoxetine 20 mg PO DAILY gabapentin 800 mg PO TID glipizide ER 10 mg PO BID hydrochlorothiazide 12.5 mg PO DAILY hydroxyzine HCl 25 mg PO BID PRN insulin aspart U-100 (Novolog FlexPen U-100 Insulin aspart) 80 units subcut TID insulin degludec (Tresiba FlexTouch U-200 insulin) 100 units subcut DAILY ketorolac 0.5% 1 drp ophthalmic (eye) DAILY lidocaine-prilocaine 2.5-2.5 % 1 appl topical ONCE losartan 100 mg PO DAILY metformin 1,000 mg PO BID methocarbamol 500 mg PO BID 30 days naloxone 4 mg/actuation (Narcan) 4 mg intranasal Q2M PRN oxycodone 5 mg PO Q8H PRN 15 days oxycodone 5 mg PO Q6H PRN zolpidem 10 mg PO BEDTIME PRN PFSH Medical History Tennis elbow MARIAM (obstructive sleep apnea) Vitamin D deficiency Familial hirsutism Hyperlipidemia Microalbuminuria Hypertension Depression Anxiety Hypercholesterolemia Type 2 diabetes mellitus with peripheral neuropathy Lumbar radiculopathy Right leg pain Surgical History Previous back surgery History of carpal tunnel release Hx of tubal ligation Family History Mother Hypertension Diabetes Father Hypertension Social History Household Members Other:: lives only, but 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 Are you a primary senior resident care director to a significant other at home: No Do you presently have visiting nurse or other home services: No Alcohol intake: never Patient Tobacco Use Status: Former Tobacco user Tobacco use type: Cigarette Years Smoked: 40 Physical Exam Vital Signs: BMI result Body Mass Index 38.2 Extrem Other: Right knee examination shows that the surgical incisions are healing well, no erythema, minimal discomfort with range of motion, no instability Assessment & Plan Assessment & Plan (1) Right knee pain: Code(s): M25.561 - Pain in right knee Category: Medical Plan Ms. Abdelrahman Buck is doing well after undergoing right knee arthroscopic surg bernardo on 04/15/2024. Her sutures were removed and Steri-Strips placed over her incisions. She will gradually progress to activities as tolerated. She will contact me prior to her follow-up appointment in 3 months should any questions or concerns arise. Feel free to call me at any time should questions regarding her orthopedic management arise. Coding Level of Care Code Global (50128) Diagnoses Right knee pain M25.561
--- OUTSIDE RECORDS SUMMARY | 2024-04-28 11:41 | XMS_ITS | Data Portability ---
Author Organization [facility], Main Office Address [address] [place] [address] Care Team Providers Care Customer Manager Name Role Phone LIYAH MARTINES Urogynecologist VINCENT MUSE [facility] [facility] Pain Management JEANNIE METZ Primary Care Provider [phone] ROXANN SOSA Programmer Assessment No assessment recorded. Plan of Treatment Reminders Order Date Submit Date Provider Last Modified By Organization Details Last Modified Time Details Appointments None recorded. Lab microalbum in, urine 2017 018 [facility], [address], [address], [place], [address], 8 14:18:56 hemoglobin A1C, fingerstic k 2017 018 In-Office Order, Internal Use Only DO Not Attach Compendium DO Not Attach Compendium, Do Not Delete/merge, [id number] 8 09:51:21 glucose, fingerstic k, blood 2017 018 In-Office Order, Internal Use Only DO Not Attach Compendium DO Not Attach Compendium, Do Not Delete/merge, [id number] 8 09:51:21 lipid panel, serum 2017 018 [facility], [address], [address], [place], [address], 8 14:47:06 CMP, serum or plasma 2017 018 [facility], [address], [address], [place], [address], 8 14:47:05 Referral urogynecol ogist referral - this pt is at no increased risk for upcoming bladder-tsering tox procedurer on Mar 02, 2017. There are no contraindi cations- Pt feels well and will continue current tx. 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 PT. is on Lyrica. Needs diabetic foot care. 2017 018 [email or web address] Not available 8 10:19:37 diabetic ophthalmol ogy referral - Diabetic eye exam. 2017 018 abigby Not available 9 10:35:[address]/dietiti an referral 2017 018 [email or web address] Not available 8 10:19:37 Procedures None recorded. Surgeries None recorded. Imaging XR, lumbosacra l spine - low back pain with radiculopa thy 2016 017 [facility], [address] [place], [address], 7 15:26:52 XR, sacroiliac joint(s) - left low back pain with radiculopa thy 2016 017 [facility], [address] [place], [address], 7 15:26:53 MAMMO, screening, bilateral - Perform Diagnostic Mammogram and Breast Ultrasound if needed / Perform Ultrasound Guided Aspiration and/or Breast Biopsy if warranted 2017 018 [facility], [address] [place], [address], 8 11:28:39 Medication Orders meloxicam 15 mg tablet 2016 017 [facility][id number], [phone] [place], [address], 8 09:59:25 methocarba mol 750 mg tablet 2016 017 [facility]30, [phone] [place], [address], 7 09:36:04 acetaminop hen 300 mg-codeine 30 mg tablet 2016 017 [facility]1130, [phone] [place], [address], 8 09:58:39 Temovate 0.05 % topical ointment 2017 018 [facility]acy #[id number], [address] [place], [address], 8 13:42:34 Chantix Starting Month Box 0.5 mg (11)-1 mg (42) tablets in dose pack 2017 018 [facility]FACE [facility] #[id number], [address] [place], [address], 8 10:04:23 Chantix Continuing Month Box 1 mg tablet 2017 018 INTERFACE [facility]/Ph[facility]acy #[id number], [address] [place], [address], 8 10:04:21 Patient TargetsNo targets recorded. Patient Instructions Encounter Date Encounter Id Patient Instructions Last Modified By Organization Details Last Modified Time 09/30/2016 [id number] Urinary Tract Infection (UTI) in Women: Care Instructions Not available 09/30/2016 14:09:22 Call or return for worsening or concerns [email or web address] Not available 09/30/2016 10:28:38 At [facility] follow up visit, all current and discharge [...] care. [email or web address] Not available 09/30/2016 17:31:22 01/06/2017 [id number] acute low back pain: exercises Not available 01/06/2017 15:45:22 getting back to normal after low back pain: care instructions Not available 01/06/2017 15:45:22 Call or return for worsening or concerns [email or web address] Not available 01/06/2017 15:36:08 I have reviewed the note and agree with the assessment and plan of care. [email or web address] Not available 01/06/2017 16:37:20 08/03/2017 [id number] preventing falls: care instructions mdalessandro Not available 08/03/2017 10:24:23 Cervical Cancer Screening mdalessandro Not available 08/03/2017 10:24:23 11/16/2017 [id number] dash diet: care instructions Not available 11/16/2017 [...] will continue current tx. Referring Physician: Kevin Bruns, Internal Medicine, Encounter Date: 02/19/2017 Cotton Factor Referral for Sc reening for malignant neoplasm of cervix Referring Physician: Kevin Burns, Internal Medicine, Encounter Date: 08/03/2017 Soil Checker Referral for Diso rder of nervous system due to diabetes mellitus Diabetes Mellitus TYpe II with diabetic peripheral neuropathy. PT. is on Lyrica. Needs diabetic foot care. Referring Physician: Jeannie Metz Internal Medicine, Encounter Date: 11/16/2017 Diabetic Ophthalmology Refer ral for Uncontrolled type 2 diabetes mellitus Diabetic eye exam. Referring Physician: Jeannie Metz, Internal Medicine, Encounter Date: 11/16/2017 Ingot Car Operator/dietitian Refer ral for Body mass index 30+ - obesity Referring Physician: Jeannie Metz, Internal Medicine, Encounter Date: 11/16/2017 Results Created Date Observation Date Name Description Value Unit Range Abnormal Flag Note LastModifiedBy Organization Detail LastModifiedTime 09/19/2016 urina lysis , dipst ick Leukocytes Negati ve Not Available In-Office Order Internal Use Only DO Not Attach Compendium DO Not Attach Compendium, Do Not Delete/merge, [id number] 09/19/2016 10:57:50 09/19/2016 urina lysis , dipst ick Nitrite positi ve Not Available In-Office Order Internal Use Only DO Not Attach Compendium DO Not Attach Compendium, Do Not Delete/merge, [id number] 09/19/2016 10:57:50 09/19/2016 urina lysis , dipst ick Urobilinogen .2 Not Available In-Of fice Order Internal Use Only DO Not Attach Compendium DO Not Attach Compendium, Do Not Delete/merge, [id number] 09/19/2016 10:57:50 09/19/2016 urina lysis , dipst [...] 09/19/2016 urina lysis , dipst ick Specific [place] 1.015 Not Available In-Off ice Order Internal [...] Available [facility] [address] [place], [address], 09/20/2016 01:39:07 09/20/19 17 09/20/2016 urina lysis , compl ete sp. gravity 1.015 (1.002 -1.030 ) Not Available [facility] [address] [place], [address], 09/20/2016 01:39:07 09/20/19 17 09/20/2016 urina lysis , compl ete urine pH 6.0 (4.0-8 .0) Not Available [facility] [address] [place], [address], 09/20/2016 01:39:07 09/20/19 17 09/20/2016 urina lysis , compl ete urine albumin NEGATI VE (neg) Not Available [facility] [address] [place], [address], 09/20/2016 01:39:07 09/20/19 17 09/20/2016 urina lysis , compl ete urine glucose 3+ (neg) abnormal Not Available [facility] [address] [place], [address], 09/20/2016 01:39:07 09/20/1909/20/2016 urina lysis , compl ete urine ketones NEGATI VE (neg) Not Available [facility] [address] [place], [address], 09/20/2016 01:39:07 09/20/1909/20/2016 urina lysis , compl ete urine bilirubin NEGATI VE (neg) Not Available [facility] [address] [place], [address], 09/20/2016 01:39:07 09/20/19 17 09/20/2016 urina lysis , compl ete urine hemoglobn 1+ (neg) abnormal Not Available [facility] [place], [address], 09/20/2016 01:39:07 09/20/19 17 09/20/2016 urina lysis , compl ete urine nitrite POSITI VE (neg) abnormal Not Available [facility] [address] [place], [address], 09/20/2016 01:39:07 09/20/19 17 09/20/2016 urina lysis , compl ete urine leukocyte 2+ (neg) abnormal Not Available [facility] [address] [place], [address], 09/20/2016 01:39:07 09/20/19 17 09/20/2016 urina lysis , compl ete urobilinogen NORMAL mg/dL (norm) Not Available [facility] [address] [place], [address], 09/20/2016 01:39:07 09/20/19 17 09/20/2016 urina lysis , compl ete urine WBC's 21 /hpf (0-5) high Not Available [facility] [place], [address], 09/20/2016 01:39:07 09/20/19 17 09/20/2016 urina lysis , compl ete urine RBC's 9 /hpf (<3) high Not Available [facility] [address] [place], [address], 09/20/2016 01:39:07 09/20/19 17 09/20/2016 urina lysis , compl ete bacteria SLIGHT hpf (neg) abnormal Not Available [facility] [address] [place], [address], 09/20/2016 01:39:07 09/20/19 17 09/20/2016 urina lysis , compl ete squamous epith 1 /hpf Not Available [facility] [address] [place], [address], 09/20/2016 01:39:07 09/20/19 17 09/19/2016 cultu re, urine specimen description CLEAN CATCH (URINE ) Not Available [facility] [address] [place], [address], 09/21/2016 10:27:40 09/20/19 17 09/19/2016 cultu re, urine special requests NONE Not Available [facility] [address] [place], [address], 09/21/2016 10:27:40 09/20/19 17 09/21/2016 cultu re, urine culture >100,0 00 COL/ML KLEBSI ANDREA PNEUMO NIAE Not Available [facility] [address], [address], 09/21/2016 10:27:40 09/20/19 17 09/21/2016 cultu re, urine report status FINAL 2016 Not Available [facility] [place], [address], 09/21/2016 10:27:40 09/20/19 17 09/21/2016 cultu re, urine organism ORGANI SM >100,0 00 COL/ML KLEBSI ANDREA PNEUMO NIAE Not Available [facility] [address] [place], [address], 09/21/2016 10:27:40 09/20/19 17 09/21/2016 cultu re, urine method METHOD MIN. INHIB. CONC. (MCG/M L) Not Available [facility] [address] [place], [address], 09/21/2016 10:27:40 09/20/19 17 09/21/2016 cultu re, urine ampicillin AMPICI LLIN RESIST ANT resistant Not Available [facility] [place], [address], 09/21/2016 10:27:40 09/20/19 17 09/21/2016 cultu re, urine ampicillin/s ulbactam AMPICI LLIN/S ULBACT AM SUSCEP TIBLE susceptib le Not Available [facility] [place], [address], 09/21/2016 10:27:40 09/20/19 17 09/21/2016 cultu re, urine amoxicillin/ clavulanic acid AMOXIC ILLIN/ CLAVUL AN SUSCEP TIBLE susceptib le Not Available [facility] [place], [address], 09/21/2016 10:27:40 09/20/19 17 09/21/2016 cultu re, urine cefazolin CEFAZO CLAUDIO SUSCEP TIBLE susceptib le Not Available [facility] [place], [address], 09/21/2016 10:27:40 09/20/19 17 09/21/2016 cultu re, urine cefepime CEFEPI ME SUSCEP TIBLE susceptib le Not Available [facility] [place], [address], 09/21/2016 10:27:40 09/20/19 17 09/21/2016 cultu re, urine ceftriaxone CEFTRI AXONE SUSCEP TIBLE susceptib le Not Available [facility] [address] [place], [address], 09/21/2016 10:27:40 09/20/19 17 09/21/2016 cultu re, urine ciprofloxaci n CIPROF LOXACI N SUSCEP TIBLE susceptib le Not Available [facility] [place], [address], 09/21/2016 10:27:40 09/20/19 17 09/21/2016 cultu re, urine gentamicin GENTAM ICIN SUSCEP TIBLE susceptib le Not Available [facility] [place], [address], 09/21/2016 10:27:40 09/20/19 17 09/21/2016 cultu re, urine levofloxacin LEVOFL OXACIN SUSCEP TIBLE susceptib le Not Available [facility] [place], [address], 09/21/2016 10:27:40 09/20/19 17 09/21/2016 cultu re, urine meropenem MEROPE NEM SUSCEP TIBLE susceptib le Not Available [facility] [address] [place], [address], 09/21/2016 10:27:40 09/20/19 17 09/21/2016 cultu re, urine nitrofuranto in NITROF URANTO IN SUSCEP TIBLE susceptib le Not Available [facility] [place], [address], 09/21/2016 10:27:40 09/20/19 17 09/21/2016 cultu re, urine piperacillin /tazobactam PIPERA CILLIN /TAZOB AC SUSCEP TIBLE susceptib le Not Available [facility] [address] [place], [address], 09/21/2016 10:27:40 09/20/19 17 09/21/2016 cultu re, urine trimeth/sulf amethox TRIMET H/SULF AMETHO X RESIST ANT resistant Not Available [facility] [address] [place], [address], 09/21/2016 10:27:40 09/20/19 17 09/21/2016 cultu re, urine tetracycline TETRAC YCLINE SUSCEP TIBLE susceptib le Not Available [facility] [address], [place], [address], 09/21/2016 10:27:40 11/17/19 18 11/16/2017 gluco se, dejuanalma rstic k, blood Blood Glucose: mg/dl 255 Not Available In-Off ice Order Internal Use Only DO Not Attach Compendium DO Not Attach Compendium, Do Not Delete/merge, [id number] 11/16/2017 09:34:27 11/17/19 18 11/16/2017 hemog lobin A1C, dejuanalma rstic k HA1C 10.0 % 4-6 Not Available In-Office Order Internal Use Only DO Not Attach Compendium DO Not Attach Compendium, Do Not Delete/merge, [id number] 11/16/2017 09:33:53 11/19/19 18 11/18/2017 micro album in, urine micro-albumi n 146.4 mg/L (0-20) high Not Available [facility] [address] [place], [address], 11/18/2017 14:18:56 11/19/19 18 11/18/2017 micro album in, urine malb/creat ratio 130.5 mg/gm (0-20) high Not Available [facility] [address] [place], [address], 11/18/2017 14:18:56 11/19/19 18 11/18/2017 micro album in, urine urine creat for micro albumin 112.2 mg/dL Not Available [facility] [place], [address], 11/18/2017 14:18:56 11/19/19 18 11/18/2017 CMP, serum or plasm a glucose 203 mg/dL (70-99 ) high Not Available [facility] [place], [address], 11/18/2017 14:47:05 11/19/19 18 11/18/2017 CMP, serum or plasm a BUN 13 mg/dL (6-20) Not Available [facility] [address] [place], [address], 11/18/2017 14:47:05 11/19/19 18 11/18/2017 CMP, serum or plasm a creatinine 0.6 mg/dL (0.5-1 .0) Not Available [facility] [address] [place], [address], 11/18/2017 14:47:05 11/19/19 18 11/18/2017 CMP, serum or plasm a sodium 142 mmol/ L (133-1 45) Not Available [facility] [address] [place], [address], 11/18/2017 14:47:05 11/19/19 18 11/18/2017 CMP, serum or plasm a potassium 4.5 mmol/ L (3.6-5 .2) Not Available [facility] [place], [address], 11/18/2017 14:47:05 11/19/19 18 11/18/2017 CMP, serum or plasm a chloride 103 mmol/ L (98-10 7) Not Available [facility] [address] [place], [address], 11/18/2017 14:47:05 11/19/19 18 11/18/2017 CMP, serum or plasm a bicarbonate 29 mmol/ L (22-29 ) Not Available [facility] [address] [place], [address], 11/18/2017 14:47:05 11/19/19 18 11/18/2017 CMP, serum or plasm a anion gap 10 (4-17) Not Available [facility] [address] [place], [address], 11/18/2017 14:47:05 11/19/19 18 11/18/2017 CMP, serum or plasm a albumin 3.9 gm/dL (3.4-4 .8) Not Available [facility] [address] [place], [address], 11/18/2017 14:47:05 11/19/19 18 11/18/2017 CMP, serum or plasm a calcium 9.0 mg/dL (8.6-1 0.5) Not Available [facility] [address] [place], [address], 11/18/2017 14:47:05 11/19/19 18 11/18/2017 CMP, serum or plasm a bilirubin,to julieta 0.2 mg/dL (0-1.2 ) Not Available [facility] [address] [place], [address], 11/18/2017 14:47:11/19/19 18 11/18/2017 CMP, serum or plasm a total protein 6.6 gm/dL (6.2-8 .2) Not Available [facility] [address] [place], [address], 11/18/2017 14:47:05 11/19/19 18 11/18/2017 CMP, serum or plasm a Ag ratio 1.4 Not Available [facility] [address] [place], [address], 11/18/2017 14:47:05 11/19/19 18 11/18/2017 CMP, serum or plasm a AST 12 U/L (0-32) Not Available [facility] [address] [place], [address], 11/18/2017 14:47:05 11/19/19 18 11/18/2017 CMP, serum or plasm a alk phos 108 U/L (35-10 4) high Not Available [facility] [address] [place], [address], 11/18/2017 14:47:11/19/19 18 11/18/2017 CMP, serum or plasm a ALT 23 U/L (0-33) Not Available [facility] [address] [place], [address], 11/18/2017 14:47:05 11/19/19 18 11/18/2017 CMP, serum [...] Not Available [facility] [address] [place], [address], 11/18/2017 14:47:05 11/19/19 18 11/18/2017 CMP, serum [...] Available [facility] [address] [place], [address], 11/18/2017 14:47:05 11/19/19 18 11/18/2017 lipid panel , serum cholesterol, total 142 mg/dL (<200) Not Available [facility] [address] [place], [address], 11/18/2017 14:47:06 11/19/19 18 11/18/2017 lipid panel , serum triglyceride 123 mg/dL (<150) Not Available [facility] [address] [place], [address], 11/18/2017 14:47:06 11/19/19 18 11/18/2017 lipid panel , serum HDL chol 42 mg/dL (>39) Not Available [facility] [address] [place], [address], 11/18/2017 14:47:06 11/19/19 18 11/18/2017 lipid panel , serum LDL cholesterol, calculated 75 mg/dL (0-130 ) Not Available [facility] [address] [place], [address], 11/18/2017 14:47:06 11/19/19 18 11/18/2017 lipid panel , serum non HDL cholesterol (calc) 100 mg/dL (<160) Not Available [facility] [address] [place], [address], 11/18/2017 14:47:06 09/25/19 17 09/23/2016 US, blessing y No observ ation record ed. [email or web address] Not Available 17:51:26 01/08/20 17 01/06/2017 XR, lumbo sacra l spine No observ ation record ed. [email or web address] [facility] [address] [facility] [address], [place], [address], 01/09/2017 14:52:34 01/08/20 17 01/06/2017 XR, sacro iliac joint (s) No observ ation record ed. [email or web address] [facility] [address] [facility] [address], [place], [address], 01/09/2017 14:52:34 08/18/19 18 08/11/2017 MAMMO , scree [place], bilat eral No observ ation record ed. [email or web address] [facility] [address] [place], [address], 08/17/2017 16:21:15 Result Notes None recorded. Problems Name Problem SNOMED Code Status Onset Date Resolution Date Notes Provider Name and Address Organization Details Recorded Time [facility] jim [id number] Active Thalia emmanuel [facility] 8 14:05:25 Hyperlip idemia 66538131 Active Thalia emmanuel [facility] 8 14:05:25 Diabetes mellitus 39429640 Completed 11/16/2017 Jeannie Metz PA-C [address] [address], [place], [address] , [facility] 8 09:55:17 Low back pain 011784429 Completed 08/21/2016 Dyan emmanuel [facility] 7 08:56:16 Gastroes ophageal reflux disease 462491662 Active Thalia emmanuel [facility] 8 14:05:25 Acute bronchit is 48677746 Completed 200711/22/2013 RECORDED 02/01/20 08 10:12AM BY PASCUAL PUTNAM MA, ANNOTATI ON/DAYNE emmanuel [facility] 6 12:21:01 Acute pharyngi tis 231346294 Completed 201211/22/2013 RECORDED 11/10/19 13 9:52AM BY MALICK HILL MA, ANNOTATI ON/ADDEN DUM Kevin Elsy'Alessand ro null, [facility] 6 12:21:01 Chronic allergic conjunct ivitis 43866540 Completed 201211/22/2013 RECORDED 05/11/19 13 9:31AM BY MALICK HILL MA, ANNOTATI ON/ADDEN DUM Kevin D'Alessand ro null, [facility] 6 12:21:01 Allergy Completed 201111/22/2013 RECORDED 11/17/19 12 9:29AM BY IVETH OSUNA I, ANNOTATI ON/ADDEN DUM Kevin Elsy'Alessand ro null, [facility] 6 12:21:01 Examinat ion for suspecte d mental disorder Completed 201211/22/2013 RECORDED 11/10/19 13 9:52AM BY MALICK HILL MA, ANNOTATI ON/ADDEN DUM Kevin Elsy'Alessand ro null, [facility] 6 12:21:01 Screenin g for malignan t neoplasm of breast Completed 201111/22/2013 RECORDED 11/17/19 12 9:29AM BY JAYASHREE DOUGLASATI ON/ADDEN DUM Jessica Gomez MA null, [facility] 7 10:15:40 Screenin g for malignan t neoplasm of breast Completed 09/30/2016 Jessica Gomez MA null, [facility] 7 10:15:40 Screenin g for malignan t neoplasm of cervix Completed 201211/22/2013 RECORDED 05/11/19 13 9:31AM BY MALICK HILL MA, ANNOTATI ON/ADDEN DUM Dyan Braun MA null, [facility] 7 08:56:00 Constipa tion 91152652 Completed 08/21/2016 Dyan emmanuel, [facility] 7 08:55:40 Risk of exposure to communic able disease 531174033 Completed 201111/22/2013 RECORDED 11/17/19 12 9:29AM BY RICK DOUGLAS ON/[facility] Kevin evans null, [facility] 6 12:21:01 Renal disorder due to type 2 diabetes mellitus 061451461 Active Thalia emmanuel, [facility] 8 14:05:25 Dysfunct ional uterine bleeding Completed 201111/22/2013 STORY: SEVERE CRAMPING ; RECORDED 11/17/19 12 9:29AM BY RICK DOUGLAS ON/[facility] Kevin evans null, [facility] 6 12:21:01 Divertic ulitis of colon 668537473 Active Thalia emmanuel, [facility] 8 14:05:25 Dysuria 08231311 Completed 09/16/2016 Dyan emmanuel, [facility] 7 15:45:17 Dysuria 07230649 Completed 201211/22/2013 RECORDED 05/11/19 13 9:31AM BY MALICK HILL MA, RICK ON/ Dyan emmanuel, [facility] 7 15:45:17 Follow-u p encounte r Completed 201211/22/2013 RECORDED 03/29/20 13 10:46AM BY EMMA SAGASTUME MA, RICK ON/[facility] Kevin emmanuel, [facility] 6 12:21:01 Influenz a vaccine needed 59105400300 06 Completed 08/21/2016 Dyan emmanuel [facility] 7 08:55:43 Influenz a vaccine needed 29003685153 06 Completed 200711/22/2013 RECORDED 08/05/19 08 10:33AM BY JEM CARDENAS, HISTORIC AL SUMMARY yDan emmanuel, [facility] 7 08:55:43 Tobacco user 910503936 Completed 201211/22/2013 RECORDED 03/29/20 13 10:46AM BY MEMA SAGASTUME MA, ANNOTATI ON/ADDEN DUM Kevin Acosta'Alessand ro null, [facility] 6 12:21:01 History of clinical finding in subject 925696200 Completed 08/21/2016 Dyan emmanuel, [facility] 7 08:56:29 Adult health examinat ion Completed 201211/22/2013 RECORDED 06/24/19 13 8:51AM BY MALICK HILL MA, ANNOTATI ON/ADDEN DUM Kevin Acosta'Alessand ro null, [facility] 6 12:21:01 General examinat ion of patient Completed 200711/22/2013 RECORDED 02/01/20 08 10:12AM BY PASCUAL PUTNAM MA, ANNOTATI ON/ADDEN DUM Kevin Ac[place]'Alessand ro null, [facility] 6 12:21:01 Hirsutis m 819836873 Active Thalia Alvarez null, [facility] 8 14:05:25 Ingrowin g nail 869037658 Completed 201111/22/2013 RECORDED 11/17/19 12 9:29AM BY JAYASHREE [facility] Kevin Ac[place]'Alessand ro null, [facility] 6 12:21:01 Laborato ry procedur e performe d 066239953 Completed 08/21/2016 Dyan emmanuel, [facility] 7 08:56:04 Menstrua tion finding Completed 201211/22/2013 RECORDED 03/29/20 13 10:46AM BY EMMA SAGASTUME MA, ANNOTATI ON/ADDEN DUM Kevin Henry ro null, [facility] 6 12:21:01 Dysmenor sanjay 230980477 Completed 201211/22/2013 RECORDED 03/29/20 13 10:47AM BY EMMA SAGASTUME MA, ANNOTATI ON/ADDEN DUM Kevin Henry ro null, [facility] 6 12:21:01 Fibromyo sitis 40543580 Completed 201111/22/2013 STORY: DUE TO ATORVAST ATIN (TOLERAT ES SIMVASTA TIN); RECORDED 03/17/20 12 2:26PM BY MALICK HILL MA, ANNOTATI ON/ADDEN [facility] Kevin Leiand ro null, [facility] 6 12:21:01 Administ ration of bacteria l and viral vaccine Completed 200711/22/2013 RECORDED 02/01/20 08 10:14AM BY PASCUAL PUTNAM MA, OFFICE VISIT Kevin Henry ro null, [facility] 6 12:21:01 Female genital organ symptoms 066087495 Completed 201211/22/2013 RECORDED 05/11/19 13 9:31AM BY MALICK HILL MA, [facility]ICK ON[facility] Kevin Henry ro null, [facility] 6 12:21:01 Tobacco user 003577740 Active Thalia Alvarez cholo, [facility] 8 14:05:25 Polycyst ic ovaries Completed 201111/22/2013 RECORDED 11/17/19 12 9:29AM BY RICK DOUGLAS ON/[facility] Kevin BanegasAlessand ro null, [facility] 6 12:21:01 Proteinu radha 44880664 Active Thalia Alvarez null, [facility] 8 14:05:25 Proteinu radha 73559817 Completed 201111/22/2013 RECORDED 11/17/19 12 9:29AM BY RICK DOUGLAS ON/ADDEN DUM Kevin Leiand ro null, [facility] 6 12:21:01 Eruption [id number] Completed 201111/22/2013 IMPRESSI ON: PT WITH PROGRESS PAMELA HIGHLY PRURITIC RASH X PAST WEEK, HANDS, FEET NOW TORSO BREAST AND ABDO AFFECTED . 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 HIGHLY SUSPICIO US FOR SCABIES INFX. ADVISED RE USE OF MED, CLEANING AND LAUNDERI NG AT HOME. OOW X TODAY AND W/E, NOTE PROVIDED . TO CALL IF RASH PERSISTS AFTER TX.; RECORDED 11/17/19 12 9:29AM BY RICK DOUGLAS ON/ADDEN DUM Kevin Leiand ro null, [facility] 6 12:21:01 Sleep apnea 57287979 Completed 201111/22/2013 RECORDED 11/17/19 12 9:29AM BY RICK DOUGLAS ON/ADDEN DUM Kevin Henry ro null, [facility] 6 12:21:01 Tobacco dependen ce syndrome 77639102 Completed 201111/22/2013 RECORDED 06/21/19 12 11:13AM BY PASCUAL PUTNAM MA, ANNOTATI ON/ADDEN DUM Kevin Leiand ro null, [facility] 6 12:21:01 Type 2 diabetes mellitus without complica tion 044672067 Completed 201111/22/2013 RECORDED 11/17/19 12 9:29AM BY RICK DOUGLAS ON/ADDEN DUM Kevin Acosta'Alessand ro null, [facility] 6 12:21:01 Uncontro lled type 2 diabetes mellitus 396304379 Completed 200811/22/2013 RECORDED 05/30/19 09 7:36AM BY PASCUAL PUTNAM MA, ANNOTATI ON/ADDEN DUM Kevin evans null, [facility] 6 12:21:01 Urinary tract infectio us disease 27532241 Completed 201211/22/2013 STORY: CT NEG @ [facility]/N O PATHOLOG Y. F/U PRN; RECORDED 03/29/20 13 10:46AM BY EMMA SAGASTUME MA, ANNOTATI ON/ADDEN DUM Kevin evans null, [facility] 6 12:21:01 Vaginiti s and vulvovag initis Completed 201211/22/2013 RECORDED 06/24/19 13 8:51AM BY MALICK HILL MA, JAYASHREEATI ON/ADDEN DUM Dyan Braun MA null, [facility] 7 08:55:57 Candidal vulvovag initis 89737248 Completed 200711/22/2013 RECORDED 02/01/20 08 10:12AM BY PASCUAL PUTNAM MA, ANNOTATI ON/ADDEN DUM Kevin evans null, [facility] 6 12:21:01 Acute bronchit is 30828159 Completed 200712/12/2013 RECORDED 02/01/20 08 10:12AM BY PASCUAL PUTNAM MA, JAYASHREEATI ON/ADDEN MEGAN evans null, [facility] 6 12:21:01 Acute pharyngi tis 413005590 Completed 201212/12/2013 RECORDED 11/10/19 13 9:52AM BY MALICK HILL MA, ANNOTATI ON/ADDGLENN evans null, [facility] 6 12:21:01 Chronic allergic conjunct ivitis 44374150 Completed 201212/12/2013 RECORDED 05/11/19 13 9:31AM BY MALICK HILL MA, ANNOTATI ON/ADDEN DUM Kevin evans null, [facility] 6 12:21:01 Allergy Completed 201112/12/2013 RECORDED 11/17/19 12 9:29AM BY JAYASHREE DOUGLASATI ON/ADDEN DUM Kevin evans null, [facility] 6 12:21:01 Examinat ion for suspecte d mental disorder Completed 201212/12/2013 RECORDED 11/10/19 13 9:52AM BY MALICK HILL MA, RICK ON/ADDEN DUM Kevin Henry ro null, [facility] 6 12:21:01 Backache 951014070 Completed 08/21/2016 Dyan emmanuel, [facility] 7 08:55:50 Screenin g for malignan t neoplasm of breast Completed 201112/12/2013 RECORDED 11/17/19 12 9:29AM BY RICK DOUGLAS ON/ADDEN DUM JEM Barnett, [facility] 7 10:15:40 Screenin g for malignan t neoplasm of cervix Completed 08/21/2016 Dyan emmanuel, [facility] 7 08:56:00 Screenin g for malignan t neoplasm of cervix Completed 201212/12/2013 RECORDED 05/11/19 13 9:31AM BY MALICK HILL MA, ANNOTATI ON/ADDEN DUM Dyan emmanuel [facility] 7 08:56:00 Risk of exposure to communic able disease 857617068 Completed 201112/12/2013 RECORDED 11/17/19 12 9:29AM BY RICK DOUGLAS ON/ADDEN DUM Kevin emmanuel, [facility] 6 12:21:01 Depressi ve disorder 99104631 Completed 05/28/2014 Kevin emmanuel, [facility] 6 12:21:01 Dysfunct ional uterine bleeding Completed 201112/12/2013 STORY: SEVERE CRAMPING ; RECORDED 11/17/19 12 9:29AM BY RICK DOUGLAS ON/ADDEN DUM Kevin evans null, [facility] 6 12:21:01 Follow-u p encounte r Completed 201212/12/2013 RECORDED 03/29/20 13 10:46AM BY EMMA SAGASTUME MA, JAYASHREEATI ON/ADDEN DUM Kevin evans null, [facility] 6 12:21:01 Influenz a vaccine needed [id number] 06 Completed 200912/12/2013 DATE: 04/23/20 10; RECORDED 11/16/19 14 12:57PM BY PASCUAL PUTNAM MA, JAYASHREEATI ON/ADDEN DUM Dyan Braun MA null, [facility] 7 08:55:43 Tobacco user [id number] Completed 201212/12/2013 RECORDED 03/29/20 13 10:46AM BY EMMA SAGASTUME MA, RICK ON/ADDEN DUM Kevin evans null, [facility] 6 12:21:01 Adult health examinat ion Completed 201212/12/2013 RECORDED 06/24/19 13 8:51AM BY MALICK HLIL MA, RICK ON/ADDEN MEGAN evans null, [facility] 6 12:21:01 General examinat ion of patient Completed 200712/12/2013 RECORDED 02/01/20 08 10:12AM BY PASCUAL PUTNAM MA, RICK ON/ADDEN DUM Kevin evans null, [facility] 6 12:21:01 Diana painting 277547330 Completed 201112/12/2013 RECORDED 11/17/19 12 9:29AM BY IVETH OSUNA I, ANNOTATI ON/ADDEN DUM Kevin evans null, [facility] 6 12:21:01 Laborato ry procedur e performe d 724022251 Completed 201312/12/2013 RECORDED 11/16/19 14 12:57PM BY PASCUAL PUTNAM MA, ANNOTATI ON/ADDEN DUM Dyan Braun MA null, [facility] 7 08:56:04 Low back pain 031763289 Completed 201312/12/2013 RECORDED 11/16/19 14 12:56PM BY PASCUAL PUTNAM MA, ANNOTATI ON/ADDEN DUM Dyan Braun MA null, [facility] 7 08:56:16 Menstrua tion finding Completed 201212/12/2013 RECORDED 03/29/20 13 10:46AM BY EMMA SAGASTUME MA, ANNOTATI ON/ADDEN DUM Kevin evans null, [facility] 6 12:21:01 Dysmenor sanjay 095608300 Completed 201212/12/2013 RECORDED 03/29/20 13 10:47AM BY EMMA SAGASTUME MA, ANNOTATI ON/ADDEN DUM Kevin evans null, [facility] 6 12:21:01 Fibromyo sitis 81518121 Completed 201112/12/2013 STORY: DUE TO ATORVAST ATIN (TOLERAT ES SIMVASTA TIN); RECORDED 03/17/20 12 2:26PM BY MALICK HILL MA, RICK ON/ADDEN DUM Kevin evans null, [facility] 6 12:21:01 Administ ration of bacteria l and viral vaccine Completed 200712/12/2013 RECORDED 02/01/20 08 10:14AM BY PASCUAL PUTNAM MA, OFFICE VISIT Kevin emmanuel, [facility] 6 12:21:01 Female genital organ symptoms 039305409 Completed 201212/12/2013 RECORDED 05/11/19 13 9:31AM BY MALICK HILL MA, RICK ON/ADDEN DUM Kevin Henry ro null, [facility] 6 12:21:01 Polycyst ic ovaries Completed 201112/12/2013 RECORDED 11/17/19 12 9:29AM BY RICK DOUGLAS ON/ADDEN DUM Kevin Henry ro null, [facility] 6 12:21:01 Eruption [id number] Completed 201112/12/2013 IMPRESSI ON: PT WITH [employer]GR[facility] PAMELA HIGHLY PRURITIC RASH X PAST WEEK, HANDS, FEET NOW TORSO BREAST AND ABDO AFFECTED . 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 HIGHLY SUSPICIO US FOR SCABIES INFX. ADVISED RE USE OF MED, CLEANING AND LAUNDERI NG AT HOME. OOW X TODAY AND W/E, NOTE PROVIDED . TO CALL IF RASH PERSISTS AFTER TX.; RECORDED 11/17/19 12 9:29AM BY RICK DOUGLAS ON/ADDEN DUM Kevin Henry ro cholo, [facility] 6 12:21:01 Sleep apnea 01161713 Completed 201112/12/2013 RECORDED 11/17/19 12 9:29AM BY RICK DOUGLAS ON/ADDEN DUM Kevin Henry ro null, [facility] 6 12:21:01 Tobacco dependen ce syndrome 17368207 Completed 201112/12/2013 RECORDED 06/21/19 12 11:13AM BY PASCUAL PUTNAM MA, RICK ON/ADDEN DUM Kevin Henry ro null, [facility] 6 12:21:01 Type 2 diabetes mellitus without complica tion 357844093 Completed 201112/12/2013 RECORDED 11/17/19 12 9:29AM BY IVETH OSUNA I [facility], [facility] 6 12:21:01 Uncontro lled type 2 diabetes mellitus 161562453 Completed 200812/12/2013 RECORDED 05/30/19 09 7:36AM BY PASCUAL PUTNAM MA, ANNOTATI ON/ADDEN DUM Kevin evans null, [facility] 6 12:21:01 Urinary tract infectio us disease 39113350 Completed 201212/12/2013 STORY: CT NEG @ [facility]/N O PATHOLOG Y. F/U PRN; RECORDED 03/29/20 13 10:46AM BY EMMA SAGASTUME MA, ANNOTATI ON/[facility] Kevin evans null, [facility] 6 12:21:01 Vaginiti s and vulvovag initis Completed 201212/12/2013 RECORDED 06/24/19 13 8:51AM BY MALICK HILL MA, ANNOTATI ON/ADDEN [facility] Dyan emmanuel, [facility] 7 08:55:57 Candidal vulvovag initis 37741786 Completed 200712/12/2013 RECORDED 02/01/20 08 10:12AM BY PASCUAL PUTNAM MA, ANNOTATI ON/[facility] Kevin evans null, [facility] 6 12:21:01 Acute vaginiti s 37255932 Completed 08/21/2016 Dyan emmanuel, [facility] 7 08:56:09 Vaginiti s 82639852 Completed 08/21/2016 Dyan emmanuel, [facility] 7 08:56:22 Spasm 26349419 Completed 08/21/2016 Dyan emmanuel, [facility] 7 08:56:33 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 Thalia Alvarez null, [facility] 8 14:05:25 Uncontro lled type 2 diabetes mellitus 787088896 Active Thalia Alvarez null, [facility] 8 14:05:25 Obesity 777286082 Active Thalia Alvarez null, [facility] 8 14:05:25 Secondar y diabetes mellitus 9270575 Completed 11/16/2017 Jeannie Metz PA-C [address] [facility] [address], [place], [address] , [facility] 8 09:55:23 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 08919674 Active Thalia Alvarez null, [facility] 8 14:05:25 Major depressi ve disorder 460090356 Active Thalia Alvarez null, [facility] 8 14:05:25 Pain in pelvis 78989473 Completed 08/21/2016 Dyan emmanuel, [facility] 7 08:56:20 Leukocyt osis 254523910 Active Thalia Alvarez null, [facility] 8 14:05:25 Steatosi s of liver 481061774 Active Thalia Alvarez null, [facility] 8 14:05:25 Shoulder joint pain 015841049 Completed 08/21/2016 Dyan emmanuel, [facility] 7 08:56:14 Chronic pain 36418316 Active Thalia Alvarez null, [facility] 8 14:05:25 Disorder of nervous system due to diabetes mellitus 786535623 Active Thalia Alvarez null, [facility] 8 14:05:25 Urinary incontin ence 599853418 Active Thalia emmanuel [facility] 8 14:05:25 Vaginiti s and vulvovag initis Completed 08/21/2016 Dyan emmanuel [facility] 7 08:55:57 Lateral epicondy litis 483842277 Active Thaliabienvenido emmanuel [facility] 8 14:05:25 Edema of the upper extremit y 156553834 Completed 08/21/2016 Dyan emmanuel [facility] 7 08:55:46 Insomnia disorder related to another mental disorder 65977706 Active 2017 Jeannie Metz PA-C [address] [facility] [address], [facility] [place], [address] , [facility] 8 09:59:11 Chronic kidney disease stage 1 510600418 Active 2017 Shellie emmanuel [facility] 8 14:30:22 Problem Notes None recorded. Procedures Surgical History Date Name Laterality Status Provider Name and Address Organization Details Recorded Time 018 Drain/inj joint/bursa w/o us completed Wen Irizarry [facility] 10/27/2017 14:13:15 018 Back Surgery completed Wen Irizarry [facility] 10/01/2017 15:05:30 018 Orthopedic Surgery completed Adalgisa Marlow [facility] 10/01/2017 16:12:10 018 Most Recent Mammogram completed Thalia Alvarez [facility] 08/17/2017 16:21:29 018 Mammogram Screening completed Thalia Alvarez [facility] 08/17/2017 16:21:24 018 Inj paravert f jnt c/t 1 lev completed Thalia Alvarez [facility] 07/09/2017 15:02:16 10/30/2 017 Cystourethroscopy completed Deb Quick [facility] 03/19/2017 15:05:02 017 Chronic Pain Assessment completed [facility] 08/[facility]/2016 08:56:53 012 Date of Last Pap Smear completed Jessica Gomez MA [facility] 11/22/2013 10:36:18 Tubal Ligation completed Emigdio Carson [facility] [address] [address], [place], [address], [facility] 11/22/2013 10:57:11 Imaging Results Imaging Date Name Status LastModified by Organiz ation Details LastModified Time 09/23/2016 US, kidney completed Information not available 09/24/2016 17:51:26 01/06/2017 XR[email or web address] [address] [facility] [address], [address], 01/09/2017 14:52:34 01/06/2017 XR, sacroiliac joint(s) [email or web address] [address] [facility] [address], [place], [address], 01/09/2017 14:52:34 08/11/2017 MAMMO, screening, bilateral completed [email or web address] [facility] [address] [address], [place], [address], 08/17/2017 16:21:15 Procedure Notes None recorded. Medical Equipment None Reported. Allergies Allergen ID Allergen Name Allergen Category Reaction Reaction Severity Criticality Documentation Date Start Date Code Code System Note Provider Name and Address Organization Details Recorded Time 84766 Product containin g angiotens in-conver ting enzyme inhibitor (product) medicatio n cough Not available Not available 11/15/20132013 28445 009 SNOMED JEM Farfan, [facility] 4 15:39:36 30070 Byetta medicatio n other Not available Not available 11/15/20132013 73246 1 RxNorm Pascual Sheri-M JEM zaman null, [facility] 4 15:39:36 08381 Cymbalta medicatio n rash severe Not available 04/13/20142013 60202 4 RxNorm ? SJS from this med Aleida Van RN null, [facility] 4 10:43:02 74463 Medicinal product containin g penicilli n and acting as antibacte rial agent (product) medicatio n hives moderate Not available 09/19/2016 95784 05 SNOMED Kevin haile null, [facility] 7 11:26:10 Medications Name Sig [...] BY EMMA SAGASTUME MA, OFFICE VISIT;DR VINCENT UJLIAN MOHAWK/ENDOC RINE Not Available Not Available Not Available [...] completed Not Available Not Available Not Available FreeFlorentin Lancaren 28 gauge active Not Available Not [...] completed RECORDED 11/02/19 08 2:29PM BY KEVIN HAILE MD, ANNOTATI ON/ADDEN DUM; Not Available Not [...] BY EMMA SAGASTUME MA, OFFICE VISIT;DR VINCENT CLIFFORD/NAMRATA SENIOR Not Available Not Available Not Available olanzapin [...] active RECORDED 08/05/19 08 10:32AM BY KEVIN HAILE MD, ANNOTATI ON/DAYNE GUZMAN; Not Available Not Available Not Available Macrobid [...] mg tablet TWO TIMES DAILY 01/20 completed IESHA Y Not Available Not Available Not Available dexametha sone 4 mg tablet active Not Available Not Available Not Available diphenhyd ramine 25 mg tablet EVERY 4 HOURS PRN 07/17 completed RECORDED 08/11/19 10 12:51PM BY MARYBETH GRIFFIN PA-C, MEDICATI ON AUTO-PALOOM CTIVATIO N;SAMPLE Not Available Not Available Not [...] completed RECORDED 03/20/20 09 8:59AM BY KEVIN HAILE MD, ANNOTATI ON/ADDEN DUM;THIS ORDER DISCONTI NUED PER MEDI-SPA N. Not Available Not Available Not Available ibuprofen 600 mg tablet THREE TIMES DAILY, NEEDED 12/28 completed RECORDED 02/05/20 10 9:35AM BY KEVIN HAILE MD, MEDICATI ON AUTO-PALOMO CTIVATIO N; Not [...] completed RECORDED 08/30/19 09 9:00AM BY KEVIN HAILE MD, ANNOTATI ON/ADDEN DUM; Not Available Not [...] RECORDED 02/05/20 10 11:42AM BY YUDI DUTTON, JAYASHREEATI ON/DAYNE GUZMAN;THIS ORDER DISCONTI NUED PER MEDI-SPA [...] completed RECORDED 03/18/20 13 11:46AM BY RICK GUERRIER ON/ADDEN DUM; Not Available Not Available Not Available glipizide 2.5 1 po qd 01/06 completed Not Available Not Available Not Available Pen [place] THREE TIMES DAILY 05/28 completed RECORDED 05/28/19 12 3:04PM BY RICK GUERRIER ON/ADDEN DUM; Not Available Not Available Not Available BD Insulin Syringe Ult-Fine II 1 mL 31 gauge x 5/16 active Not Available Not Available Not Available FreeStyle [place] kit QD active Not Available Not Available [...] active Not Available Not Available Not Avai labtena Chantix Starting Month Box 0.5 mg (11)-1 [...] Available Not Available Not Available Fluarix Quad 2019-5498 (PF) 60 mcg (15 mcg x 4)/0.5 [...] % 98 % 89 /min 98.3 [degF] 771579. 31 g 35.9 kg/m2 119 mm[Hg] 63 mm[Hg] Jessica Gomez [facility] 7 10:23:05 Date Recorded Body height Body mass index (BMI) Body weight Heart rate Oxygen saturation Oxygen saturation in Arterial blood by Pulse oximetry Body temperature Systolic blood pressure Diastolic blood pressure Provider Name and Address Organization Details Last Updated DateTime 7 167.64 cm 35 kg/m2 75889.5 4 g 103 /min 97 % 97 % 98 [degF] 134 mm[Hg] 78 mm[Hg] Iveth Sorensen [facility] 7 14:41:13 Date Recorded Body height Body mass index (BMI) Body weight Heart rate Oxygen saturation Oxygen saturation in Arterial blood by Pulse oximetry Body temperature Systolic blood pressure Diastolic blood pressure Provider Name and Address Organization Details Last Updated DateTime 7 167.64 cm 35.2 kg/m2 44059.8 4 g 71 /min 99 % 99 % 97.1 [degF] 127 mm[Hg] 81 mm[Hg] Dyan Braun MA [facility] 7 09:35:08 Date Recorded Body height Body mass index (BMI) Body weight Oxygen saturation Oxygen saturation in Arterial blood by Pulse oximetry Heart rate Systolic blood pressure Diastolic blood pressure Provider Name and Address Organization Details Last Updated DateTime 8 167.64 cm 35.6 kg/m2 12491.4 2 g 97 % 97 % 85 /min 122 mm[Hg] 77 mm[Hg] Dyan Braun [facility] 8 10:02:08 Date Recorded Body height Body mass index (BMI) Body weight Body temperature Oxygen saturation Oxygen saturation in Arterial blood by Pulse oximetry Heart rate Systolic blood pressure Diastolic blood pressure Provider Name and Address Organization Details Last Updated DateTime 8 167.64 cm 35.1 kg/m2 37545.3 4 g 97.4 [degF] 96 % 96 % 85 /min 122 mm[Hg] 78 mm[Hg] Wen Irizarry [facility] 8 09:26:56 Social History Question Answer Notes LastModified by Organizat ion Details LastModified Time Tobacco Smoking Status Current Every Day Smoker Patient did quit, after accident she started again Emma emmanuel [facility] 11/16/2014 12:59:47 Do You Have An Advance Directive? No Information not available 12/14/2015 What Is Your Level Of Alcohol Consumption? None [email or web address] Information not available 11/22/2013 Is Blood Transfusion Acceptable In An Emergency? Yes Information not available 11/16/2014 What Is Your Level Of Caffeine Consumption? Occasional Mostly Coffee Sometimes Soda [email or web address] Information not available 11/22/2013 How Much Tobacco Do You Chew? None [email or web address] Information not available 11/22/2013 Are You Currently Employed? No Information not available 11/16/2014 Are You Deaf Or Do You Have Serious Difficulty Hearing? No [email or web address] Information not available 11/22/2013 What Type Of Diet Are You Following? DIABETIC Information not available 11/16/2014 Which Illicit Or Recreational Drugs Have You Used? N/A Information not available 11/16/2014 Have There Been Any Changes To Your Family Or Social Situation? No [email or web address] Information not available 11/22/2013 Are There Any Guns Present In Your Home? No [email or web address] Information not available 11/22/2013 Single Or Multi-level Home/work? Single Level Home [email or web address] Information not available 11/22/2013 Legally Blind In One Or Both Eyes? No [email or web address] Information not available 11/22/2013 Live Alone Or With Others? Alone [email or web address] Information not available 11/22/2013 Do You Take Precautions To Prevent Distracted Driving? Yes Information not available 08/03/2017 How Often Do You Need To Have Someone Help You When You Read Instructions, Pamphlets, Or Other Written Material From Your Doctor Or Pharmacy? Never Information not available 12/14/2015 Have You Served In The ? No Information not available 08/03/2017 Marital Status [email or web address] Informatio n not available 11/22/2013 What Was The Date Of Your Most Recent Tobacco Screening? 08/03/2017 Information not available 11/25/2018 How Many Children Do You Have? 2 Dtr Marialuisa And Ericr Macho [email or web address] Information not available 12/14/2015 Difficulty Reading? No [email or web address] Information not available 11/22/2013 Seat Belts Used Routinely Yes Information not available 11/16/2014 Smoke Alarm In Home Yes [email or web address] Information not available 11/22/2013 At What Age Did You Start Smoking Tobacco? 16 Information not available 11/16/2014 Are You Passively Exposed To Smoke? No Information not available 11/22/2013 How Much Tobacco Do You Smoke? 1 PPD Information not available 11/16/2014 General Stress Level High Information not available 11/22/2013 Do You Use Any Illicit Or Recreational Drugs? No Information not available 11/22/2013 Do You Use Sunscreen Routinely? No Information not available 11/16/2014 How Many Years Have You Smoked Tobacco? 20 [email or web address] Information not available 11/22/2013 Difficulty Watching TV? No [email or web address] Information not available 11/22/2013 Sex: Unknown Functional Status Question Answer Note LastModified by Organizat ion Details LastModified Time Do you have difficulty walking or climbing stairs? Yes Information not available 11/22/2013 Difficulty driving at night? No [email or web address] Information not available 11/22/2013 Do you have difficulty doing errands alone? No [email or web address] Information not available 11/22/2013 Are you able to care for yourself? Yes Marialuisa is proxy Information not available 12/14/2015 Do you have difficulty dressing or bathing? No [email or web address] Information not available 11/22/2013 What is your exercise level? None Information not available 11/16/2014 Mental Status Question Answer Note LastModified by Organization D etails LastModified Time Do you have difficulty concentrating, remembering or making decisions? No [email or web address] Information no t available 11/22/2013 Family History [...] N Breast Cancer N mrsa exposure N Depression Y COPD N Lung Disease N Hypothyroidism N Defects or Inherited Disease N Developmental [...] trivalent, PF 5 completed Thalia Alvarez null, [facility] 08/11/2017 14:05:20 pneumococcal polysaccharide PPV23 4 completed Thalia Alvarez null, [facility] 08/11/2017 14:05:20 Influenza, split virus, trivalent, preservative 6 completed Thalia Alvarez null, [facility] 08/11/2017 14:05:20 Tdap 8 completed Thalia Alvarez null, [facility] 08/11/2017 14:05:20 Influenza, split virus, quadrivalent, PF 7 completed Not Available [email or web address] 05/21/2019 02:22:13 pneumococcal polysaccharide PPV23 7 completed Thalia Alvarez null, [facility] 08/11/2017 14:05:20 Influenza, split virus, trivalent, preservative 8 completed Thalia Alvarez null, [facility] 08/11/2017 14:05:20 Influenza, split virus, trivalent, preservative 8 completed Thalia Alvarez null, [facility] 08/11/2017 14:05:20 Tdap 8 completed Thalia Alvarez null, [facility] 08/11/2017 14:05:20 Influenza, split virus, trivalent, preservative 0 completed Thalia Alvarez null, [facility] 08/11/2017 14:05:20 Influenza, split virus, trivalent, preservative 2 completed Thalia Alvarez null, [facility] 08/11/2017 14:05:20 Influenza, split virus, trivalent, preservative 3 completed Thalia emmanuel [place] - [facility] 08/11/2017 14:05:20 Past Encounters Encounter ID Performer Location Encounter Start Date Encounter Closed Date Diagnosis/Indication Diagnosis SNOMED-CT Code Diagnosis ICD10 Code [id number] Main Office [address] [place] [address] 11/22/2013 09:54:55 11/22/2013 11:27:21 Adult health examination 107565262 Diabetes mellitus 478596 09 Low back pain 722487741 Essential hypertension 33997606 Hyperlipidemia 51934982 Gastroesop hageal reflux disease 013561503 [id number] [facility] erce [address] [facility] [place] [address] 04/23/2010 00:00:00 [id number] auto[facility]Comm erce [address] [facility] [place] [address] 04/23/2010 00:00:00 [id number] auto[facility] erce [address] [facility] [place] [address] 04/23/2010 00:00:00 [id number] auto[facility] erce [address] [facility] [place] [address] 09/27/2010 00:00:00 [id number] [facility] er[facility] [address] [facility] [place] [address] 10/22/2010 00:00:00 [id number] auto[facility] erce [address] [facility] [place] [address] 10/22/2010 00:00:00 [id number] [employer] [address] [facility] [place] [address] 04/29/2011 00:00:00 [id number] [employer] [address] [facility],[address] [place] [address] 04/29/2011 00:00:00 [id number] [employer] [address] [facility],[address] [place] [address] 2 06/21/2011 00:00:00 [id number] [employer] [address] [place] [address] 2 08/27/2011 00:00:00 [id number] [employer] [address] [place] [address] 08/27/2011 00:00:00 [id number] [employer] [address] [place] [address] 2 10/28/2011 00:00:00 [id number] [employer] [address] [place] [address] 2 10/28/2011 00:00:00 [id number] [employer] [address] [place] [address] 2 10/28/2011 00:00:00 [id number] [employer] [address] [place] [address] 2 10/28/2011 00:00:00 [id number] [employer] [address] [place] [address] 2 11/01/2011 00:00:00 [id number] [employer] [address] [place] [address] 2 11/01/2011 00:00:00 [id number] [employer] [address] [place] [address] 2 11/01/2011 00:00:00 [id number] [employer] [address] [place] [address] 2 11/01/2011 00:00:00 [id number] [employer] [address] [place] [address] 2 11/17/2011 00:00:00 [id number] [employer] [address] [place] [address] 2 11/17/2011 00:00:00 [id number] [employer] [address] [place] [address] 2 11/17/2011 00:00:00 [id number] [employer] [address] [place] [address] 2 11/17/2011 00:00:00 [id number] [employer] [address] [place] [address] 2 03/17/2012 00:00:00 [id number] [employer] [address] [place] [address] 2 03/17/2012 00:00:00 [id number] [employer] [address] [place] [address] 2 03/17/2012 00:00:00 [id number] [employer] [address] [facility] [address] [place] [address] 05/11/2012 00:00:00 [id number] [employer] [address] [place] [address] 2 06/24/2012 00:00:00 [id number] [employer] [address] [place] [address] 2 06/24/2012 00:00:00 [id number] [employer] [address] [place] [address] 2 06/24/2012 00:00:00 [id number] [employer] [address] [place] [address] 2 07/24/2012 00:00:00 [id number] [employer] [address] [place] [address] 2 07/24/2012 00:00:00 [id number] [employer] [address] [place] [address] 2 07/24/2012 00:00:00 [id number] [employer] [address] [place] [address] 2 07/24/2012 00:00:00 [id number] [employer] [address] [place] [address] 2 11/09/2012 00:00:00 [id number] [employer] [address] [place] [address] 2 11/09/2012 00:00:00 [id number] [employer] [address] [place] [address] 2 03/29/2013 00:00:00 [id number] [employer] [address] [place] [address] 2 03/29/2013 00:00:00 [id number] [employer] [address] [place] [address] 2 03/29/2013 00:00:00 [id number] [employer] [address] [place] [address] 2 05/31/2013 00:00:00 [id number] [employer] [address] [place] [address] 2 05/31/2013 00:00:00 [id number] [employer] [address] [place] [address] 2 05/31/2013 00:00:00 [id number] [employer] [address] [place] [address] 2 05/31/2013 00:00:00 [id number] [employer] [address] [place] [address] 2 10/10/2013 00:00:00 [id number] [employer] [address] [place] [address] 2 10/10/2013 00:00:00 [id number] [employer] [address] [place] [address] 2 10/10/2013 00:00:00 [id number] [employer] [address] [place] [address] 2 10/10/2013 00:00:00 [id number] [employer] [address] [place] [address] 2 11/15/2013 00:00:00 [id number] [employer] [address] [place] [address] 2 11/15/2013 00:00:00 [id number] [employer] [address] [place] [address] 2 11/15/2013 00:00:00 [id number] [employer] [address] [place] [address] 2 11/15/2013 00:00:00 [id number] [employer] [address] [facility] [address] [place] [address] 12/01/2006 00:00:00 [id number] [employer] [address] [facility],[address] [place] [address] 2 12/01/2006 00:00:00 [id number] [employer] [address] [facility] [address] [place] [address] 2 12/01/2006 00:00:00 [id number] [employer] [address] [facility] [address] [place] [address] 2 12/15/2006 00:00:00 [id number] [employer] [address] [place] [address] 2 05/06/2007 00:00:00 [id number] [employer] [address] [place] [address] 2 05/06/2007 00:00:00 [id number] [employer] [address] [facility] [address] [place] [address] 2 08/05/2007 00:00:00 [id number] [employer] [address] [place] [address] 2 08/05/2007 00:00:00 [id number] [employer] [address] [place] [address] 2 08/05/2007 00:00:00 [id number] [employer] [address] [place] [address] 2 11/02/2007 00:00:00 [id number] [employer] [address] [place] [address] 2 11/19/2007 00:00:00 [id number] [employer] [address] [facility] [address] [place] [address] 2 11/19/2007 00:00:00 [id number] [employer] [address] [facility] [address] [place] [address] 2 11/19/2007 00:00:00 [id number] [employer] [address] [facility],[address] [place] [address] 2 11/19/2007 00:00:00 [id number] [employer] [address] [facility],[address] [place] [address] 2 12/03/2007 00:00:00 [id number] [employer] [address] [facility],[address] [place] [address] 2 12/03/2007 00:00:00 [id number] [employer] [address] [facility] [address] [place] [address] 2 12/03/2007 00:00:00 [id number] [employer] [address] [facility] [address] [place] [address] 2 12/03/2007 00:00:00 [id number] [employer] [address] [facility] [address] [place] [address] 2 01/28/2008 00:00:00 [id number] [employer] [address] [facility],[address] [place] [address] 2 01/28/2008 00:00:00 [id number] [employer] [address] [place] [address] 2 01/28/2008 00:00:00 [id number] [employer] [address] [place] [address] 2 02/01/2008 00:00:00 [id number] [employer] [address] [place] [address] 2 05/30/2008 00:00:00 [id number] [employer] [address] [place] [address] 2 05/30/2008 00:00:00 [id number] [employer] [address] [facility] [address] [place] [address] 2 05/30/2008 00:00:00 [id number] [employer] [address] [facility],[address] [place] [address] 2 05/30/2008 00:00:00 [id number] [employer] [address] [facility],[address] [place] [address] 2 08/29/2008 00:00:00 [id number] [employer] [address] [facility] [address] [place] [address] 2 08/29/2008 00:00:00 [id number] [employer] [address] [facility],[address] [place] [address] 2 08/29/2008 00:00:00 [id number] [employer] [address] [place] [address] 2 08/29/2008 00:00:00 [id number] [facility] [address] [facility] [address] [place] [address] 2 03/20/2009 00:00:00 [id number] [employer] [address] [facility],[address] [place] [address] 2 03/20/2009 00:00:00 [id number] [employer] [address] [place] [address] 03/20/2009 00:00:00 [id number] [employer] [address] [facility],[address] [place] [address] 03/20/2009 00:00:00 [id number] [employer] [address] [facility],[address] [place] [address] 07/11/2009 00:00:00 [id number] [employer] [address] [facility],[address] [place] [address] 2 07/11/2009 00:00:00 [id number] [employer] [address] [facility],[address] [place] [address] 2 07/11/2009 00:00:00 [id number] [employer] [address] [facility] [place] [address] 12/18/2009 00:00:00 [id number] Aleida Van RN Main Office [address] [facility] [address] [place] [address] 02/24/2014 15:25:31 02/24/2014 16:22:20 Diabetes mellitus 20789466 Essential hypertension 87610301 [id number] Dyan Braun MA Main Office [address] [facility] [address] [place] [address] 04/19/2014 12:44:50 04/19/2014 13:33:59 Acute vaginitis 94331122 Drug-induc ed Lucas-Christopher syndrome 486191880 Follow-up encounter 3909 25772 Essential hypertension 68846726 Diabetes mellitus 991120 09 823007 Emma Sagastume Main Office [address] [facility] [address] [place] [address] 05/29/2014 11:23:28 05/29/2014 12:09:24 Essential hypertension 76011330 Obesity 862974044 Renal diso rder due to type 2 diabetes mellitus 428172398 Degenerati on of lumbosacral intervertebral disc 68870420 Hyperlipidemia 26180987 [id number] Kevin evans Main Office [address] [facility] [address] [place] [address] 11/16/2014 12:38:15 11/16/2014 13:41:48 Adult health examination 303045973 Major depr essive disorder 029787997 Renal diso rder due to type 2 diabetes mellitus 746182397 Essential hypertension 08705287 [id number] Kevin evans Main Office [address] [address] [place] [address] 03/20/2015 15:28:47 03/20/2015 16:09:41 Pain in pelvis 11406340 R10.2 Leukocytosis 499885731 D 72.829 Steatosis of liver 48836 1007 K76.0 244039 Kevin AcostaChinmayMaida evans Main Office [address] [address] [place] [address] 05/24/2015 13:00:22 05/24/2015 14:12:21 Degeneration of lumbosacral intervertebral disc 41927282 M51.37 Shoulder joint pain 2679 31031 M25.512 Chronic pain 27626867 G8 9.29 Major depr essive disorder 597006179 F32.9 Renal diso rder due to type 2 diabetes mellitus 097395028 E11.29 [id number] Kevin evans Main Office [address] [address] [place] [address] 07/03/2015 08:40:32 07/03/2015 09:28:06 Constipation 89688580 K59.00 Chronic pain 39247512 G8 9.29 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 270799252 E11.40 Urinary incontinence 165 811369 R32 Vaginitis and vulvovaginitis 914129396 N76.0 810495 Kevin evans Main Office [address] [address] [place] [address] 08/23/2015 10:36:51 08/23/2015 12:02:34 Lateral epicondylitis 456152102 M77.11 [id number] Gabriele Patel MD Main Office [address] [address] [place] [address] 09/15/2015 10:33:07 09/15/2015 11:53:40 Dysuria 63331199 R30.0 Renal diso rder due to type 2 diabetes mellitus 816247971 E11.22 028115 Kevin evans Main Office [address] [address] [place] [address] 11/06/2015 11:15:55 11/06/2015 12:11:54 Edema of the upper extremity 529241152 R60.0 Major depr essive disorder 601848634 F33.9 Essential hypertension 79880159 I10 Chronic pain 01425031 G8 9.29 [id number] Kevin evans Main Office [address] [facility] [address] [place] [address] 12/14/2015 13:25:51 12/14/2015 14:48:40 Adult health examination 140132227 Z00.00 Renal diso rder due to type 2 diabetes mellitus 908581911 E11.22 N18.2 Degenerati on of lumbosacral intervertebral disc 86157231 M51.37 Chronic pain 90852358 G8 9.29 Major depr essive disorder 140407298 F33.9 [id number] Kevin evans Main Office [address] [address] [place] [address] 05/16/2016 14:15:45 05/16/2016 15:50:32 Neck pain 56966021 M54.2 Major depr essive disorder 542345700 F32.9 [id number] Shellie Chapman Main Office [address] [address] [place] [address] 08/21/2016 08:46:41 08/21/2016 09:49:52 Chronic pain 19875127 G89.29 Chronic ki dney disease stage 1 328022710 N18.1 Renal diso rder due to type 2 diabetes mellitus 541829578 E11.22 Hyperlipidemia 36685710 E78.5 Tobacco de pendence syndrome 76394134 F17.290 Chronic pain syndrome 37 7011245 G89.4 Hypertensi ve renal disease 82084024 I12.9 773009 Kevin evans Main Office [address] [facility] [address] [place] [address] 09/19/2016 10:36:47 09/19/2016 11:34:36 Dysuria 02651594 R30.0 085122 Kevin evans Main Office [address] [address] [place] [address] 09/26/2016 16:26:36 09/26/2016 17:08:20 [id number] Kevin evans Main Office [address] [address] [place] [address] 09/30/2016 10:13:28 09/30/2016 10:53:18 Urinary tract infectious disease 73879096 N39.0 Urinary incontinence 165 948021 R32 Uncontroll ed type 2 diabetes mellitus 809286858 E11.65 Essential hypertension 49327449 I10 Acute vaginitis 02533405 N76.0 [id number] Kevin evans Main Office [address] [address] [place] [address] 01/06/2017 14:04:42 01/06/2017 15:24:15 Lumbar radiculopathy 414364553 M54.16 [id number] Kevin evans Main Office [address] [address] [place] [address] 02/19/2017 09:25:09 02/19/2017 10:09:46 Needs influenza immunization 704375326 Z23 Urinary incontinence 165 026831 R32 [id number] Kevin evans Main Office [address] [address] [place] [address] 08/03/2017 09:45:53 08/03/2017 10:34:19 Adult health examination 911109897 Z00.00 Screening for malignant neoplasm of breast 203558433 Z12.39 Screening for malignant neoplasm of cervix 203991590 Z12.4 Administra tion of viral vaccine 58041870 Z23 Eczema 49166907 L30.9 Uncontroll ed type 2 diabetes mellitus 772023999 E11.65 Major depr essive disorder 751066450 F33.9 024545 Main Office [address] [address] [place] [address] 11/16/2017 08:53:08 11/16/2017 10:19:36 Uncontrolled type 2 diabetes mellitus 819997724 E11.65 Renal diso rder due to type 2 diabetes mellitus 468221779 E11.22 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 459306722 E11.49 Hyperlipidemia 26079993 E78.00 Essential hypertension 49860355 I10 Major depr essive disorder 502126918 F32.9 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 95734062 F51.05 F99 Tobacco user 006276874 Z 72.0 Body mass index 30+ - obesity 614167977 E66.01 Z68.35 Chronic ki dney disease stage 1 628922959 N18.1 Health Concerns Section Related Observation LastModified by Organization Detai ls LastModified Time None Recorded Concern Status LastModified by Organization Details LastModified Time None Recorded Advance Directives Directive N: Payers Encounter Date Sequence Insurance Name Policy Number Policy Cordero Covered Member ID Cordero Member ID Guarantor Name 09/30/2016 1 [place] [employer] Mabeline Quick Buck [id number] Mabeline Quick Buck 09/30/2016 2 [place] Mabeline Quick-Pal [place] [id number] Mabeline Quick Buck 01/06/2017 1 [place] [employer] Mabeline Quick Buck [id number] Mabeline Quick Buck 01/06/2017 2 [place] Mabeline Quick-Pal [place] [id number] Mabeline Quick Buck 02/19/2017 1 [place] [employer] Mabeline Quick Buck [id number] Mabeline Quick Buck 02/19/2017 2 [place] Mabeline Quick-Pal [place] [id number] Mabeline Quick Buck 08/03/2017 1 [place] [employer] Mabeline Quick Buck [id number] Mabeline Quick Buck 08/03/2017 2 [place] Mabeline Quick-Pal [place] [id number] Mabeline Quick Buck 11/16/2017 1 [place] [employer] Mabeline Quick Buck [id number] Mabeline Quick Buck 11/16/2017 2 [place] Mabeline Quick-Pal [place] [id number] Mabeline Quick Buck Notes Date Note Type Note Provider Name and Address Organization Details Recorded Time 09/30/2016 text/html Hospitalization Contact RecordReported bypatient.[facility] admit date: (Please enter in format [...] has resolved. glipizide was increased. Kevin emmanuel [facility] 09/30/2016 17:31:32 01/06/2017 text/html Generic HPI TemplateReported bypatient.Notes:left hip/ buttock pain that radiates down leg into toes with numbness and tingling. She feels pain is severe and was going to go to ED. She notes she has had back pain with a UTI before, her urine is yellow but bubbly appearing. She does have DM and endocrine is sending her to [place] for a test as she cannot take insulin. Kevin emmanuel [facility] 01/06/2017 16:37:31 02/19/2017 text/html Urinary FrequencyReported bypatient.Quality:symp toms worse during the day Severity:moderate Alleviating Factors:nothing gives relief; pt notes urinary incontinence. pt has leakage Aggravating Factors:tobacco use; pt quit smoking last year Associated Symptoms:no abdominal pain; no diarrhea; no hesitancy; no vomiting; pt has urine odor when she has UTI/ pt plans for bladder botox. see plan Kevin emmanuel [facility] 02/19/2017 09:59:55 08/03/2017 text/html Medicare [...] good lighting in the home Kevin emmanuel [facility] 08/03/2017 10:31:16 11/16/2017 text/html 52 year old fema le for f/u. PT. 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 Sees endo at [facility] and is currently on V-Go pump and CGM with [employer]. A!c today is improved at 10.0% from 11.3% on last visit with endo . PT. has almaz for f/u. PT. has neuropathy. Does ot currently see third hand. Overdue for diabetic eye exam. REports no vision changes.Major depression. Sees psych and counselor in [place]. On Citalopram 20 mg and Zolpidem for insomnia from them.Chronic pain and neuropathy. WAS ON Lyrica , but discontinued in May.HTN is stable on meds. PT. is overdue for labs.Hyperlipidemia. ON atorvastatin 10 mg. Overdue for labs.TObacco user. 12 or 13 cigarettes per day. STopped in the past with [employer]. Wants to try again. Shellie emmanuel [facility] 11/16/2017 14:31:49 OBGyn Episode No OBEpisode recorded.
[2024-04-28 11:49] VITALS: BMI 38.2
== END 2024-04-28 12:20 | disposition home or self-care (01) ==
PROVIDERS: PCP Family Medicine; Visit Provider Orthopaedic Surgery
DX: M25.561 Pain in right knee (principal)
CPT/HCPCS: 99024

== ENCOUNTER → 2024-04-28 11:39 | Outpatient (BNVA) | payer OTHER, SELFPAY | PROVIDERS: PCP Family Medicine; Visit Provider Orthopaedic Surgery | DX: M25.561 Pain in right knee (principal); Z47.89 Encounter for other orthopedic aftercare; Z98.890 Other specified postprocedural states | CPT/HCPCS: 99212 ==

== ENCOUNTER 2024-05-23 17:15 | Emergency (ER) | payer OTHER, SELFPAY ==
--- NOTE | ~2024-05-23 | CT_ITS ---
CLINICAL HISTORY: left flank pain CT abdomen and pelvis without contrast Comparison: CT - CT ABDOMEN PELVIS W IV CON - 11/13/22 02:48 EDT Findings: There are coronary artery calcifications. No consolidation or pleural effusion. There is rotation of the right renal axis. No urolithiasis or hydronephrosis. Hypodense liver parenchyma. Liver length estimated at 23 cm. Remaining abdominal organs are unremarkable. The gallbladder is poorly distended. There are no calcified gallstones. No bowel obstruction, pneumoperitoneum, or pneumatosis. Pelvic contents unremarkable. Normal appendix. No acute fracture. IMPRESSION: 1. No urolithiasis or hydronephrosis. 2. Hepatomegaly with fatty infiltration of the liver. This document has been electronically signed by: Wen Rob MD on 05/23/2024 20:32:25
[2024-05-23 18:13] VITALS: BP 186/87; PULSE 95; RESP 18; TEMP 36.9; O2SAT 98; BMI 39.8
--- NOTE | 2024-05-23 18:13 | ED.GENADULT ---
HPI - General Adult General Chief complaint: Abdominal Pain Stated complaint: low back pain Related Data Home Medications ?Medication ?Instructions ?Recorded ?Confirmed aspirin 81 mg tablet,delayed 81 mg PO DAILY 01/26/23 04/28/24 release atorvastatin 20 mg tablet 20 mg PO DAILY 01/26/23 04/28/24 citalopram 10 mg tablet (Celexa) 10 mg PO DAILY 01/26/23 04/28/24 gabapentin 800 mg tablet 800 mg PO TID 01/26/23 04/28/24 glipizide 10 mg tablet, extended 10 mg PO BID 01/26/23 04/28/24 release 24 hr hydroxyzine HCl 25 mg tablet 25 mg PO BID PRN Anxiety 01/26/23 04/28/24 losartan 100 mg tablet 100 mg PO DAILY 01/26/23 04/28/24 metformin 500 mg tablet 1,000 mg PO BID 01/26/23 04/28/24 ketorolac 0.5 % eye drops 1 drp ophthalmic (eye) DAILY 06/30/23 04/28/24 zolpidem 10 mg tablet 10 mg PO BEDTIME PRN Sleep 08/10/23 04/28/24 insulin degludec 200 unit/mL (3 100 unit subcut DAILY 11/09/23 04/28/24 mL) subcutaneous pen (Tresiba FlexTouch U-200 insulin) hydrochlorothiazide 12.5 mg tablet 12.5 mg PO DAILY 11/13/23 04/28/24 insulin aspart U-100 100 unit/mL 80 unit subcut TID 11/13/23 04/28/24 (3 mL) subcutaneous pen (Novolog FlexPen U-100 Insulin aspart) fluoxetine 20 mg capsule 20 mg PO DAILY 12/29/23 04/28/24 Previous Rx's ?Medication ?Instructions ?Recorded naloxone 4 mg/actuation nasal 4 mg intranasal Q2M PRN opioid 08/14/23 spray (Narcan) overdose #2 ea lidocaine-prilocaine 2.5 %-2.5 % 1 appl topical ONCE pain #30 grams 11/09/23 topical cream oxycodone 5 mg tablet 5 mg PO Q8H PRN pain (scale score 03/15/24 7-10) 15 days #30 tabs oxycodone 5 mg tablet 5 mg PO Q6H PRN pain #20 tabs 04/15/24 methocarbamol 500 mg tablet 500 mg PO BID muscle spasms 30 04/25/24 days #60 tabs Allergies Allergy/AdvReac Type Severity Reaction Status Date / Time amoxicillin [AMOXICILLIN] Allergy Severe ANAPHYLAXIS Verified 05/23/24 18:15 exenatide [From BYETTA] Allergy Severe ANAPHYLAXIS Verified 05/23/24 18:15 insulin detemir Allergy Severe SORE THROAT Verified 05/23/24 18:15 [From LEVEMIR U-100 INSULIN] insulin glargine Allergy Severe YEAST Verified 05/23/24 18:15 [From LANTUS U-100 INSULIN] INFECTION insulin glulisine Allergy Severe UNKNOWN Verified 05/23/24 18:15 [From APIDRA U-100 INSULIN] insulin regular Allergy Severe MUSCLE PAIN Verified 05/23/24 18:15 [From NOVOLIN R REGULAR U-100 INSULN] lisinopril Allergy Severe Cough Verified 05/23/24 18:15 penicillin V Allergy Severe Rash Verified 05/23/24 18:15 pioglitazone [From ACTOS] Allergy Severe HIVES Verified 05/23/24 18:15 insulin isophane (NPH) Allergy Intermediate YEAST Verified 05/23/24 18:15 [From HUMULIN N NPH U-100 INFECTION INSULIN] duloxetine [From CYMBALTA] Allergy Unknown UNKNOWN Verified 05/23/24 18:15 tizanidine AdvReac Severe Anxiety Verified 05/23/24 18:15 PMFSH Past Medical History Medical History Tennis elbow MARIAM (obstructive sleep apnea) Vitamin D deficiency Familial hirsutism Hyperlipidemia Microalbuminuria Hypertension Depression Anxiety Hypercholesterolemia Type 2 diabetes mellitus with peripheral neuropathy Lumbar radiculopathy Right leg pain Surgical History Previous back surgery History of carpal tunnel release Hx of tubal ligation Family History Family History Mother Hypertension Diabetes Father Hypertension Social History Social History Household Members Other:: lives only, but 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 Are you a primary acute care clinical nurse specialist to a significant other at home: No Do you presently have visiting nurse or other home services: No Alcohol intake: never Patient Tobacco Use Status: Former Tobacco user Tobacco use type: Cigarette Years Smoked: 40 Advance Directives: No Advance Directives Information Provided: No Do you have a plan to hurt others: No Plan Physical Exam ED Vital Signs: Vital Signs - 24 hr 05/23/24 18:13 Temperature 98.5 F Pulse Rate 95 Respiratory Rate 18 Blood Pressure 186/87 H Pulse Oximetry 98 Oxygen Delivery Method Room Air BMI result Body Mass Index 39.8 Course Course Course Narrative: This is an RME: Additional HPI, ROS, PE not included below will be deferred to primary provider. RME assessment and note performed by: Gianna Khan PA-C This is a 36-yble-nhu-female, with a hx of chronic low back pain, pinched nerve L5, lumbar DDD, MARIAM, uncontrolled DM, PAD, peripheral neuropathy, anxiety, depression, who presents emergency department with complaints of left-sided flank pain since yesterday. No nausea, vomiting, or diarrhea. Reports decreased urinary output. Plan: Labs, UA, CT scan Medical Decision Making Lab Data 05/23/24 18:53 05/23/24 18:53 Labs: Lab Results 05/23/24 Range/Units 18:53 WBC 8.3 (4.8-10.8) X10*3/uL RBC 4.35 (4.20-5.50) X10*6/uL Hgb 12.6 D (12.0-16.0) g/dl Hct 39.2 (37.0-47.0) % MCV 90.1 (80.0-98.0) fL MCH 29.0 (27.0-33.0) pg MCHC 32.1 (31.0-35.0) g/dl RDW 13.0 (11.0-16.0) % Plt Count 182 D (160-400) X10*3/uL MPV 9.1 L (9.4-12.3) fL Immature Gran % (Auto) 0.4 (0.0-0.4) % Neut % (Auto) 54.1 (45-73) % Lymph % (Auto) 31.7 (20-40) % [place] % (Auto) 11.1 H (2-11) % Eos % (Auto) 2.1 (0-4) % Baso % (Auto) 0.6 (0-2) % Lymph # (Auto) 2.6 (1.2-4.9) X10*3/uL [place] # (Auto) 0.9 (0.1-1.2) X10*3/uL Eos # (Auto) 0.2 (0.0-0.4) X10*3/uL Baso # (Auto) 0.1 (0.0-0.2) X10*3/uL Abs Immat Gran (auto) 0.03 (0.00-0.03) X10*3/uL Absolute Neuts (auto) 4.5 (2.0-8.3) x10*3/uL Absolute Nucleated RBC 0.000 (0.0-0.012) X10*3/uL Nucleated RBC % (auto) 0.0 (0.0-0.2) /100WBC Sodium 138 (135-145) mmol/L Potassium 4.7 (3.3-5.1) mmol/L Chloride 103 (96-108) mmol/L Carbon Dioxide 27 (22-29) mmol/L Anion Gap 13 (12-20) BUN 22 H (9-16) mg/dL Creatinine 0.85 (0.5-1.4) mg/dL Estim Creat Clear Calc 92.6 Estimated GFR > 60 Random Glucose 353 H* (60-115) mg/dL Calcium 9.2 (8.4-10.2) mg/dL Total Bilirubin 0.3 (0.0-1.0) mg/dL Direct Bilirubin 0.1 (0.0-0.5) mg/dL AST 41 H (5-31) U/L ALT 38 H (0-31) U/L Alkaline Phosphatase 125 H (39-117) U/L Total Protein 7.8 (6.5-8.0) g/dL Albumin 3.6 (3.5-5.0) g/dL Lipase 26 (8-78) U/L Discharge Plan Discharge Prescriptions: No Action oxycodone 5 mg tablet 5 mg PO Q6H PRN (Reason: pain) Qty: 20 0RF Rx Instructions: Partial Fill upon patient request. methocarbamol 500 mg tablet 500 mg PO BID 30 Days Qty: 60 3RF insulin aspart U-100 [Novolog FlexPen U-100 Insulin] 100 unit/mL (3 mL) insulin pen 80 unit subcut TID hydrochlorothiazide 12.5 mg tablet 12.5 mg PO DAILY glipizide 10 mg tablet extended release 24hr 10 mg PO BID losartan 100 mg tablet 100 mg PO DAILY atorvastatin 20 mg tablet 20 mg PO DAILY citalopram [Celexa] 10 mg tablet 10 mg PO DAILY gabapentin 800 mg tablet 800 mg PO TID aspirin 81 mg tablet,delayed release (DR/EC) 81 mg PO DAILY metformin 500 mg tablet 1,000 mg PO BID hydroxyzine HCl 25 mg tablet 25 mg PO BID PRN (Reason: Anxiety) naloxone [Narcan] 4 mg/actuation spray,non-aerosol 4 mg intranasal Q2M PRN (Reason: opioid overdose) Qty: 2 0RF Rx Instructions: spray 1 dose into ONE nostril; alternate nostrils w each dose until help arrives fluoxetine 20 mg capsule 20 mg PO DAILY oxycodone 5 mg tablet 5 mg PO Q8H PRN (Reason: pain (scale score 7-10)) 15 Days Qty: 30 0RF Rx Instructions: Partial Fill upon patient request. zolpidem 10 mg tablet 10 mg PO BEDTIME PRN (Reason: Sleep) ketorolac 0.5 % drops 1 drp ophthalmic (eye) DAILY insulin degludec [Tresiba FlexTouch U-200] 200 unit/mL (3 mL) insulin pen 100 unit subcut DAILY Rx Instructions: BEDTIME lidocaine-prilocaine 2.5-2.5 % cream 1 appl topical ONCE Qty: 30 0RF Rx Instructions: Apply to both feet 15-30 min prior to Qutenza Print Language: Upper Sorbian
[2024-05-23 18:59] LABS: Basophils Absolute Auto 0.1 X10*3/uL (0.0-0.2); Basophils Percent Auto 0.6 % (0-2); Eosinophils Absolute Auto 0.2 X10*3/uL (0.0-0.4); Eosinophils Percent Auto 2.1 % (0-4); Hematocrit 39.2 % (37.0-47.0); Hemoglobin 12.6 g/dl (12.0-16.0); Imm Gran Abs Auto 0.03 X10*3/uL (0.00-0.03); Imm Gran Pct Auto 0.4 % (0.0-0.4); Lymphocytes Absolute Auto 2.6 X10*3/uL (1.2-4.9); Lymphocytes Percent Auto 31.7 % (20-40); MANUAL DIFF FLAG NO; Mean Corpuscular HGB Conc 32.1 g/dl (31.0-35.0); Mean Corpuscular Volume 90.1 fL (80.0-98.0); Mean Platelet Volume 9.1 fL (9.4-12.3); Monocytes Absolute Auto 0.9 X10*3/uL (0.1-1.2); Monocytes Percent Auto 11.1 % (2-11); Neutrophils Absolute Auto 4.5 x10*3/uL (2.0-8.3); Neutrophils Percent Auto 54.1 % (45-73); Platelet Count 182 X10*3/uL (160-400); Red Blood Count 4.35 X10*6/uL (4.20-5.50); White Blood Count 8.3 X10*3/uL (4.8-10.8)
[2024-05-23 19:22] LABS: Alanine Aminotransferase 38 U/L (0-31); Albumin Level 3.6 g/dL (3.5-5.0); Alkaline Phosphatase 125 U/L (39-117); Anion Gap 13 (12-20); Aspartate Amino Transferase 41 U/L (5-31); Bilirubin Direct 0.1 mg/dL (0.0-0.5); Bilirubin Total 0.3 mg/dL (0.0-1.0); Blood Urea Nitrogen 22 mg/dL (9-16); Calcium 9.2 mg/dL (8.4-10.2); Carbon Dioxide 27 mmol/L (22-29); Chloride 103 mmol/L (96-108); Creatinine Clr Calc Pharmacy 92.6; Estimated Glomerular Filt Rate > 60; Glucose Random 353 mg/dL (60-115); Lipase 26 U/L (8-78); Potassium 4.7 mmol/L (3.3-5.1); Sodium 138 mmol/L (135-145); Total Protein 7.8 g/dL (6.5-8.0)
[2024-05-23 22:17] LABS: Beta-Hydroxybutyrate 0.07 mmol/L (0.02-0.27)
[2024-05-23 23:06] LABS: VBG Base Excess 4.7 mmol/L; VBG HCO3 30 mmol/L (22-26); VBG pCO2 51 mmHg; VBG pH 7.38 (7.32-7.43); VBG pO2 43 mmHg
[2024-05-23 23:07] LABS: Venous Blood Gas Refer to POC result
[2024-05-24 00:12] VITALS: BP 180/89; PULSE 86; RESP 18; TEMP 36.8; O2SAT 97
[2024-05-24] MEDS: oxyCODONE HCl Immed Release 5 MG TABLET 10 MG PO (00:15)
[2024-05-24 00:18] LABS: Glucose, Whole Blood 245 mg/dL (60-115)
--- NOTE | 2024-05-24 00:20 | ED_ITS ---
HPI - Back Pain/Injury General Chief Complaint: Abdominal Pain Stated Complaint: low back pain Time Seen by Provider: 05/24/24 00:04 Source: patient Mode of arrival: ambulatory Limitations: no limitations History of Present Illness ED Provider: HPI Narrative: Patient's history of chronic back pain comes here with pain in the left flank area since last night no injuries no history of kidney stone no urinary complaints no nausea no vomiting no diarrhea pain gets worse on movements no shortness a breath no cough Related Data Home Medications ?Medication ?Instructions ?Recorded ?Confirmed aspirin 81 mg tablet,delayed 81 mg PO DAILY 01/26/23 04/28/24 release atorvastatin 20 mg tablet 20 mg PO DAILY 01/26/23 04/28/24 citalopram 10 mg tablet (Celexa) 10 mg PO DAILY 01/26/23 04/28/24 gabapentin 800 mg tablet 800 mg PO TID 01/26/23 04/28/24 glipizide 10 mg tablet, extended 10 mg PO BID 01/26/23 04/28/24 release 24 hr hydroxyzine HCl 25 mg tablet 25 mg PO BID PRN Anxiety 01/26/23 04/28/24 losartan 100 mg tablet 100 mg PO DAILY 01/26/23 04/28/24 metformin 500 mg tablet 1,000 mg PO BID 01/26/23 04/28/24 ketorolac 0.5 % eye drops 1 drp ophthalmic (eye) DAILY 06/30/23 04/28/24 zolpidem 10 mg tablet 10 mg PO BEDTIME PRN Sleep 08/10/23 04/28/24 insulin degludec 200 unit/mL (3 100 unit subcut DAILY 11/09/23 04/28/24 mL) subcutaneous pen (Tresiba FlexTouch U-200 insulin) hydrochlorothiazide 12.5 mg tablet 12.5 mg PO DAILY 11/13/23 04/28/24 insulin aspart U-100 100 unit/mL 80 unit subcut TID 11/13/23 04/28/24 (3 mL) subcutaneous pen (Novolog FlexPen U-100 Insulin aspart) fluoxetine 20 mg capsule 20 mg PO DAILY 12/29/23 04/28/24 Previous Rx's ?Medication ?Instructions ?Recorded naloxone 4 mg/actuation nasal 4 mg intranasal Q2M PRN opioid 08/14/23 spray (Narcan) overdose #2 ea lidocaine-prilocaine 2.5 %-2.5 % 1 appl topical ONCE pain #30 grams 11/09/23 topical cream oxycodone 5 mg tablet 5 mg PO Q8H PRN pain (scale score 03/15/24 7-10) 15 days #30 tabs oxycodone 5 mg tablet 5 mg PO Q6H PRN pain #20 tabs 04/15/24 methocarbamol 500 mg tablet 500 mg PO BID muscle spasms 30 04/25/24 days #60 tabs oxycodone 5 mg tablet 5 mg PO Q6H PRN pain #20 tabs 05/24/24 Allergies Allergy/AdvReac Type Severity Reaction Status Date / Time amoxicillin [AMOXICILLIN] Allergy Severe ANAPHYLAXIS Verified 05/23/24 18:15 exenatide [From BYETTA] Allergy Severe ANAPHYLAXIS Verified 05/23/24 18:15 insulin detemir Allergy Severe SORE THROAT Verified 05/23/24 18:15 [From LEVEMIR U-100 INSULIN] insulin glargine Allergy Severe YEAST Verified 05/23/24 18:15 [From LANTUS U-100 INSULIN] INFECTION insulin glulisine Allergy Severe UNKNOWN Verified 05/23/24 18:15 [From APIDRA U-100 INSULIN] insulin regular Allergy Severe MUSCLE PAIN Verified 05/23/24 18:15 [From NOVOLIN R REGULAR U-100 INSULN] lisinopril Allergy Severe Cough Verified 05/23/24 18:15 penicillin V Allergy Severe Rash Verified 05/23/24 18:15 pioglitazone [From ACTOS] Allergy Severe HIVES Verified 05/23/24 18:15 insulin isophane (NPH) Allergy Intermediate YEAST Verified 05/23/24 18:15 [From HUMULIN N NPH U-100 INFECTION INSULIN] duloxetine [From CYMBALTA] Allergy Unknown UNKNOWN Verified 05/23/24 18:15 tizanidine AdvReac Severe Anxiety Verified 05/23/24 18:15 Review of Systems 2 Review of Systems: Yes all other systems are reviewed and are negative PMFSH Past Medical History Medical History Tennis elbow MARIAM (obstructive sleep apnea) Vitamin D deficiency Familial hirsutism Hyperlipidemia Microalbuminuria Hypertension Depression Anxiety Hypercholesterolemia Type 2 diabetes mellitus with peripheral neuropathy Lumbar radiculopathy Right leg pain Surgical History Previous back surgery History of carpal tunnel release Hx of tubal ligation Family History Family History Mother Hypertension Diabetes Father Hypertension Social History Social History Household Members Other:: 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 only, 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 Are you a primary healthcare associate to a significant other at home: No Do you presently have visiting nurse or other home services: No Alcohol intake: never Patient Tobacco Use Status: Former Tobacco user Tobacco use type: Cigarette Years Smoked: 40 Smoked in Last 30 Days: No Advance Directives: No Advance Directives Information Provided: No Do you have a plan to hurt others: No Plan Physical Exam 2 Vital Signs: Vital Signs: Last Vital Signs Temp 98.3 F 05/24/24 00:12 Pulse 86 05/24/24 00:12 Resp 18 05/24/24 00:12 BP 180/89 H 05/24/24 00:12 Pulse Ox 97 05/24/24 00:12 O2 Del Method Room Air 05/24/24 00:12 BMI result Body Mass Index 39.8 Appearance: Alert. Oriented X3. No acute distress. ENT: Pharynx normal. Oral Mucosa moist Neck: Normal inspection. Neck supple. CVS: Normal heart rate and rhythm. Pulses normal. Respiratory: No respiratory distress. Equal air entry bilateral, no wheezing/rales/rhonchi Abdomen: Soft and nontender. Bowel sounds are present, no mass palpable, L CVA tenderness Skin: Skin warm and dry. Normal skin color. Normal skin turgor. Extremities: No lower extremity edema. No calf tenderness Neuro: Oriented X 3. No motor deficit. No sensory deficit.No cerebellar signs , cranial nerves II-XII intact Medications Administered Discontinued Medications Generic Name Dose Route Start Last Admin Trade Name Freq PRN Reason Stop Dose Admin Oxycodone HCl 10 mg 05/24/24 00:08 05/24/24 00:15 Oxycodone Hcl Immed Release 5 Mg Tablet PO 05/24/24 00:09 10 mg ONCE ONE Administration Medical Decision Making Medical Decision Making MDM Narrative: Patient with left flank pain increases on movements likely musculoskeletal CT scan of the kidneys negative patient denies any urinary complaints Differential Diagnosis Differential Diagnoses: The differential diagnosis associated with the presentation includes Renal colic/UTI/musculoskeletal pain Lab Data MDM Lab Attestation statement: I reviewed the patient's lab results. 05/23/24 18:53 05/23/24 18:53 Labs: Lab Results 05/23/24 05/23/24 05/24/24 Range/Units 18:53 22:59 00:14 WBC 8.3 (4.8-10.8) X10*3/uL RBC 4.35 (4.20-5.50) X10*6/uL Hgb 12.6 D (12.0-16.0) g/dl Hct 39.2 (37.0-47.0) % MCV 90.1 (80.0-98.0) fL MCH 29.0 (27.0-33.0) pg MCHC 32.1 (31.0-35.0) g/dl RDW 13.0 (11.0-16.0) % Plt Count 182 D (160-400) X10*3/uL MPV 9.1 L (9.4-12.3) fL Immature Gran % (Auto) 0.4 (0.0-0.4) % Neut % (Auto) 54.1 (45-73) % Lymph % (Auto) 31.7 (20-40) % [place] % (Auto) 11.1 H (2-11) % Eos % (Auto) 2.1 (0-4) % Baso % (Auto) 0.6 (0-2) % Lymph # (Auto) 2.6 (1.2-4.9) X10*3/uL [place] # (Auto) 0.9 (0.1-1.2) X10*3/uL Eos # (Auto) 0.2 (0.0-0.4) X10*3/uL Baso # (Auto) 0.1 (0.0-0.2) X10*3/uL Abs Immat Gran (auto) 0.03 (0.00-0.03) X10*3/uL Absolute Neuts (auto) 4.5 (2.0-8.3) x10*3/uL Absolute Nucleated RBC 0.000 (0.0-0.012) X10*3/uL Nucleated RBC % (auto) 0.0 (0.0-0.2) /100WBC VBG pH 7.38 (7.32-7.43) VBG pCO2 51 mmHg VBG pO2 43 mmHg VBG HCO3 30 H (22-26) mmol/L VBG O2 Saturation 68.0 % VBG Base Excess 4.7 mmol/L Sodium 138 (135-145) mmol/L Potassium 4.7 (3.3-5.1) mmol/L Chloride 103 (96-108) mmol/L Carbon Dioxide 27 (22-29) mmol/L Anion Gap 13 (12-20) BUN 22 H (9-16) mg/dL Creatinine 0.85 (0.5-1.4) mg/dL Estim Creat Clear Calc 92.6 Estimated GFR > 60 POC Glucose 245 H (60-115) mg/dL Random Glucose 353 H* (60-115) mg/dL Calcium 9.2 (8.4-10.2) mg/dL Total Bilirubin 0.3 (0.0-1.0) mg/dL Direct Bilirubin 0.1 (0.0-0.5) mg/dL AST 41 H (5-31) U/L ALT 38 H (0-31) U/L Alkaline Phosphatase 125 H (39-117) U/L Total Protein 7.8 (6.5-8.0) g/dL Albumin 3.6 (3.5-5.0) g/dL Lipase 26 (8-78) U/L Beta-Hydroxybutyrate 0.07 (0.02-0.27) mmol/L Independent Interpretation I performed an independent interpretation of an: CT Scan Radiology Impression Discussion of test interpretation with radiology: I have reviewed the radiologist's reading. Radiologist Impression: No acute Discharge Plan Discharge Clinical Impression: Strain of back Patient Disposition: Home, Self-Care Instructions: Low Back Strain (ED) Additional Instructions: Your CT scan is negative for acute pathology Cause of your pain is likely musculoskeletal Take pain medication as prescribed Follow with your PCP if not better Prescriptions: New oxycodone 5 mg tablet 5 mg PO Q6H PRN (Reason: pain) Qty: 20 0RF Rx Instructions: Partial Fill upon patient request. No Action oxycodone 5 mg tablet 5 mg PO Q6H PRN (Reason: pain) Qty: 20 0RF Rx Instructions: Partial Fill upon patient request. methocarbamol 500 mg tablet 500 mg PO BID 30 Days Qty: 60 3RF insulin aspart U-100 [Novolog FlexPen U-100 Insulin] 100 unit/mL (3 mL) insulin pen 80 unit subcut TID hydrochlorothiazide 12.5 mg tablet 12.5 mg PO DAILY glipizide 10 mg tablet extended release 24hr 10 mg PO BID losartan 100 mg tablet 100 mg PO DAILY atorvastatin 20 mg tablet 20 mg PO DAILY citalopram [Celexa] 10 mg tablet 10 mg PO DAILY gabapentin 800 mg tablet 800 mg PO TID aspirin 81 mg tablet,delayed release (DR/EC) 81 mg PO DAILY metformin 500 mg tablet 1,000 mg PO BID hydroxyzine HCl 25 mg tablet 25 mg PO BID PRN (Reason: Anxiety) naloxone [Narcan] 4 mg/actuation spray,non-aerosol 4 mg intranasal Q2M PRN (Reason: opioid overdose) Qty: 2 0RF Rx Instructions: spray 1 dose into ONE nostril; alternate nostrils w each dose until help arrives fluoxetine 20 mg capsule 20 mg PO DAILY oxycodone 5 mg tablet 5 mg PO Q8H PRN (Reason: pain (scale score 7-10)) 15 Days Qty: 30 0RF Rx Instructions: Partial Fill upon patient request. zolpidem 10 mg tablet 10 mg PO BEDTIME PRN (Reason: Sleep) ketorolac 0.5 % drops 1 drp ophthalmic (eye) DAILY insulin degludec [Tresiba FlexTouch U-200] 200 unit/mL (3 mL) insulin pen 100 unit subcut DAILY Rx Instructions: BEDTIME lidocaine-prilocaine 2.5-2.5 % cream 1 appl topical ONCE Qty: 30 0RF Rx Instructions: Apply to both feet 15-30 min prior to Qutenza Print Language: South Korean
[2024-05-24 00:55] VITALS: BP 180/89; PULSE 86; RESP 18; TEMP 36.8; O2SAT 97
== END 2024-05-24 00:58 | disposition home or self-care (01) ==
PROVIDERS: Physician Assistant Medical; Emergency Provider Internal Medicine; PCP Family Medicine
DX: S39.012A Strain of muscle, fascia and tendon of lower back, initial encounter (principal); X58.XXXA Exposure to other specified factors, initial encounter; Y93.9 Activity, unspecified; Y92.9 Unspecified place or not applicable; Y99.9 Unspecified external cause status; R10.9 Unspecified abdominal pain; I10 Essential (primary) hypertension; E11.9 Type 2 diabetes mellitus without complications; Z79.899 Other long term (current) drug therapy
CPT/HCPCS: 36415; 74176; 80048; 80076; 82010; 82803; 82947; 83690; 85025; 99284

== ENCOUNTER → 2024-05-23 18:15 | Outpatient (BNV) | payer OTHER, SELFPAY | PROVIDERS: PCP Family Medicine; Visit Provider Radiology Diagnostic Radiology | DX: K76.0 Fatty (change of) liver, not elsewhere classified (principal); R16.0 Hepatomegaly, not elsewhere classified | CPT/HCPCS: 74176 ==

== ENCOUNTER 2024-05-31 14:19 | Outpatient (REF) | payer OTHER, SELFPAY ==
--- OUTSIDE RECORDS SUMMARY | 2024-05-31 15:16 | XMS_ITS | Clinical Summary ---
Author Organization [facility] Address [address] [place] [address] Care Team Providers Care Air Cargo Agent Name Role Phone Zoraida Li MD Primary Care Provider [phone] Allergies Active Allergy Reactions Criticality Noted Date Comments Exenatide Swelling 04/04/2022 Duloxetine Hcl Rash Low 04/04/2022 Insulin Glargine Hives 04/04/2022 Lisinopril Shortness Of Breath High 04/04/2022 Penicillins Hives 04/04/2022 Medications Medication Sig Dispensed Refills Start Date End Date Status sulfamethoxazole-t rimethoprim (BACTRIM DS) 800-160 MG per tablet Take 1 tablet (160 mg of trimethoprim total) by mouth 2 (two) times a day. 28 tablet 0 04/04/2022 Active Active Problems No known active problems Social History Tobacco Use Types Packs/Day Years Used Date Smoking Tobacco: Never Assessed Sex and Gender Information Value Date Recorded Sex Assigned at Female 04/04/2022 3:36 PM EST Gender Identity Female 04/04/2022 5:10 PM EST Sexual Orientation Not on file Job Start Date Occupation Industry Not on file Not on file Not on file Last Filed Vital Signs Vital Sign Reading Time Taken Comments Blood Pressure 184/112 04/04/2022 3:49 PM EST Pulse 94 04/04/2022 3:49 PM EST Temperature 36.4 ??C (97.6 ??F) 04/04/2022 3:49 PM ES T Respiratory Rate 18 04/04/2022 3:49 PM EST Oxygen Saturation 96% 04/04/2022 3:49 PM EST Inhaled Oxygen Concentration - - Weight 104.8 kg (231 lb) 04/04/2022 3:49 PM EST Height 170.2 cm (5' 7 ) 04/04/2022 3:49 PM EST Body Mass Index 36.18 04/04/2022 3:49 PM EST Plan of Treatment Health Maintenance Due Date Last Done Comments Hepatitis B Vaccines (1 of 3 - 3-dose series) 1966 Hepatitis C Screening 1966 COVID-19 Vaccine (#1) 02/15/1967 Depression Screening 1978 Preventative Health Evaluation 1984 Cervical Cancer Screening (Pap Smear) 08/17/1987 Colon Cancer Screening (Colonoscopy) 08/17/2011 Breast Cancer Screening (Mammogram) 2016 Shingrix-Zoster Vaccine (1 of 2) 2016 Influenza Vaccine (#1) 2024 7, 01/23/2016, 03/03/2013, Additional history exists DTap / Tdap / Td (3 - Td or Tdap) 08/06/2027 08/05/2017, 02/01/2008 Pneumococcal Vaccine Aged Out 04/15/2014, 12/02/19 07 No longer eligible based on patient's age to complete this topic RSV Ped < 20 months Aged Out No longe r eligible based on patient's age to complete this topic Care Teams Air Cargo Agent Relationship Specialty Start Date End Date Zoraida Li MD [address] [place] [id number] PCP - General Family Medicine 04/04/22
--- OUTSIDE RECORDS SUMMARY | 2024-05-31 15:16 | XMS_ITS | Clinical Summary ---
Author Organization [facility] it[facility] Address [address] [place] [address] Care Team Providers Care Warehouse Lead Name Role Phone Zoraida Li MD Primary Care Provider [phone] Social History Tobacco Use Types Packs/Day Years Used Date Smoking Tobacco: Never Assessed Sex and Gender Information Value Date Recorded Sex Assigned at Not on file Gender Identity Not on file Sexual Orientation Not on file Obstetrics History Plan of Treatment Health Maintenance Due Date Last Done Comments Breast Cancer Screening 1966 DTaP,Tdap,and Td Vaccines (1 - Tdap) 1985 Hepatitis B Vaccines (1 of 3 - 19+ 3-dose series) 1985 Cervical Cancer Screening: P ap Smear 08/17/1987 Zoster Vaccines (1 of 2) 2016 Colorectal Cancer Screening: Colonoscopy 06/02/2023 Depression Screening 06/02/2023 HIV Screening 06/02/2023 Hepatitis C Screening 06/02/2023 Social Influencers of Health Screening 06/02/2023 COVID-19 Vaccine ( - 2023-2 5 season) 2024 Influenza Vaccine (#1) 2024 HIB Vaccines Aged Out No longer eligi ble based on patient's age to complete this topic HPV Vaccines Aged Out No longer eligi ble based on patient's age to complete this topic Hepatitis A Vaccines Aged Out No long er eligible based on patient's age to complete this topic IPV Vaccines Aged Out No longer eligi ble based on patient's age to complete this topic MMR Vaccines Aged Out No longer eligi ble based on patient's age to complete this topic Meningococcal ACWY Vaccine Aged Out N o longer eligible based on patient's age to complete this topic Pneumococcal Vaccine: Pediat rics (0 to 5 Years) and At-Risk Patients (6 to 64 Years) Aged Out No longer eligible b ased on patient's age to complete this topic RSV Immunization Patients Un jerry 20 months Aged Out No longer eligible b ased on patient's age to complete this topic Varicella Vaccines Aged Out No longer eligible based on patient's age to complete this topic Care Teams Warehouse Lead Relationship Specialty Start Date End Date Zoraida Li MD PCP - General 04/04/22
== END 2024-05-31 14:20 | disposition home or self-care (01) ==
LOC: HO.MAMMO 14:19
PROVIDERS: Visit Provider Family Medicine
DX: Z12.31 Encounter for screening mammogram for malignant neoplasm of breast (principal)
CPT/HCPCS: 77063; 77067

== ENCOUNTER → 2024-05-31 14:30 | Outpatient (BNV) | payer OTHER, SELFPAY | PROVIDERS: Visit Provider Internal Medicine | DX: Z12.31 Encounter for screening mammogram for malignant neoplasm of breast (principal) | CPT/HCPCS: 77063; 77067 ==

== ENCOUNTER 2024-06-29 10:56 | Outpatient (AMB) | payer OTHER, SELFPAY ==
[2024-06-29 11:21] VITALS: BMI 39.8
--- NOTE | 2024-06-29 11:21 | MHC.OFFVIS ---
Vital Signs 06/29/24 11:21 Height 5 ft 6 in Weight 246 lb 7 oz BMI 39.8 Intake Visit Reasons: PO RT knee 04/15/24 Intake Note: Estefania is a 58 year old female who presents with complaints of intermittent discomfort in her right knee after undergoing right knee arthroscopic surgery on 04/15/2024. She continues with her home exercise program. She does not take any medicines for discomfort. She denies any fevers or chills. She denies any locking or giving way. Allergies amoxicillin [AMOXICILLIN] Allergy (Severe, Verified 06/29/24 11:22) ANAPHYLAXIS exenatide [From BYETTA] Allergy (Severe, Verified 06/29/24 11:22) ANAPHYLAXIS insulin detemir [From LEVEMIR U-100 INSULIN] Allergy (Severe, Verified 06/29/24 11:22) SORE THROAT insulin glargine [From LANTUS U-100 INSULIN] Allergy (Severe, Verified 06/29/24 11:22) YEAST INFECTION insulin glulisine [From APIDRA U-100 INSULIN] Allergy (Severe, Verified 06/29/24 11:22) UNKNOWN insulin regular [From NOVOLIN R REGULAR U-100 INSULN] Allergy (Severe, Verified 06/29/24 11:22) MUSCLE PAIN lisinopril Allergy (Severe, Verified 06/29/24 11:22) Cough penicillin V Allergy (Severe, Verified 06/29/24 11:22) Rash pioglitazone [From ACTOS] Allergy (Severe, Verified 06/29/24 11:22) HIVES insulin isophane (NPH) [From HUMULIN N NPH U-100 INSULIN] Allergy (Intermediate, Verified 06/29/24 11:22) YEAST INFECTION duloxetine [From CYMBALTA] Allergy (Unknown, Verified 06/29/24 11:22) UNKNOWN tizanidine Adverse Reaction (Severe, Verified 06/29/24 11:22) Anxiety Medication List - Last Reconciled 06/29/24 by Westley Buitrago MD aspirin 81 mg PO DAILY atorvastatin 20 mg PO DAILY citalopram (Celexa) 10 mg PO DAILY fluoxetine 20 mg PO DAILY gabapentin 800 mg PO TID glipizide ER 10 mg PO BID hydrochlorothiazide 12.5 mg PO DAILY hydroxyzine HCl 25 mg PO BID PRN insulin aspart U-100 (Novolog FlexPen U-100 Insulin aspart) 80 units subcut TID insulin degludec (Tresiba FlexTouch U-200 insulin) 100 units subcut DAILY ketorolac 0.5% 1 drp ophthalmic (eye) DAILY lidocaine-prilocaine 2.5-2.5 % 1 appl topical ONCE losartan 100 mg PO DAILY metformin 1,000 mg PO BID methocarbamol 500 mg PO BID 30 days naloxone 4 mg/actuation (Narcan) 4 mg intranasal Q2M PRN oxycodone 5 mg PO Q6H PRN oxycodone 5 mg PO Q8H PRN 15 days oxycodone 5 mg PO Q6H PRN zolpidem 10 mg PO BEDTIME PRN PFSH Medical History Tennis elbow MARIAM (obstructive sleep apnea) Vitamin D deficiency Familial hirsutism Hyperlipidemia Microalbuminuria Hypertension Depression Anxiety Hypercholesterolemia Type 2 diabetes mellitus with peripheral neuropathy Lumbar radiculopathy Right leg pain Surgical History Previous back surgery History of carpal tunnel release Hx of tubal ligation Family History Mother Hypertension Diabetes Father Hypertension Social History Household Members Other:: lives only, but has a [employer]MENT [employer] daily Are you a primary menagerie caretaker to a significant other at home: No Do you presently have visiting nurse or other home services: No Alcohol intake: never Patient Tobacco Use Status: Former Tobacco user Tobacco use type: Cigarette Years Smoked: 40 Physical Exam Vital Signs: BMI result Body Mass Index 39.8 Const Other: Well-nourished well-developed very friendly female awake alert and oriented x3 in no acute distress Extrem Other: Bilateral lower extremity examination shows good capillary refill, no skin lesions noted, normal sensation light touch right knee examination shows that the surgical incisions are well healed, no erythema, minimal crepitus with range of motion, minimal discomfort with range of motion, no instability Assessment & Plan Assessment & Plan (1) Arthritis of right knee: Code(s): M17.11 - Unilateral primary osteoarthritis, right knee Category: Medical Plan Ms. Abdelrahman Buck continues to do very well after undergoing right knee arthroscopic surgery on 04/15/2024. She does have residual discomfort due to early degenerative joint disease. I had a lengthy discussion with the patient regarding the treatment options. At this point the patient's symptoms are tolerable to her. We will hold off on a cortisone injection. She will follow up with me on an as-needed basis should her symptoms worsen in any way. Feel free to call me at any time should questions regarding her orthopedic management arise. I spent 22 minutes in reviewing the patient's records and imaging studies, seeing the patient and documenting in the medical record. Coding Level of Care Code Est Pt Level 3 (26299) Complex EM visit Add On G2211 Diagnoses Arthritis of right knee M17.11
--- OUTSIDE RECORDS SUMMARY | 2024-06-29 13:41 | XMS_ITS | Clinical Summary ---
Author Organization [facility] Address [address] [place] [address] Care Team Providers Care Research Dietitian Name Role Phone Zoraida Li MD Primary Care Provider [phone] Allergies Active Allergy Reactions Criticality Noted Date [...] age to complete this topic Care Teams Research Dietitian Relationship Specialty Start Date End Date Zoraida Li MD [address] [place] [id number] PCP - General Family Medicine 04/04/22
--- OUTSIDE RECORDS SUMMARY | 2024-06-29 13:41 | XMS_ITS | Clinical Summary ---
Author Organization [facility] it[facility] Address [address] [place] [address] Care Team Providers Care Patent Law Specialist Name Role Phone Zoraida Li MD Primary Care Provider Social History Tobacco Use Types Packs/Day Years Used Date Smoking Tobacco: Never Assessed Comments Unknown Sex and Gender Information Value Date Recorded Sex Assigned at Not on file Legal Sex Female 4:39 AM EST Gender Identity Not on file Sexual Orientation Not on file Obstetrics History Plan of Treatment Health Maintenance Due Date Last Done Comments Breast Cancer Screening 1966 DTaP,Tdap,and Td Vaccines (1 - Tdap) 1985 Hepatitis B Vaccines (1 of 3 - 19+ 3-dose series) 1985 Cervical Cancer Screening: P ap Smear 08/17/1987 Pneumococcal Vaccine: 50+ Ye ars (1 of 1 - PCV) 2016 Zoster Vaccines (1 of 2) 2016 Colorectal [...] patient's age to complete this topic Meningococcal B Vacine Aged Out No lo nger eligible based on patient's age to complete [...] age to complete this topic Care Teams Patent Law Specialist Relationship Specialty Start Date End Date Zoraida Li MD PCP - General 04/04/22
--- OUTSIDE RECORDS SUMMARY | 2024-06-29 13:42 | XMS_ITS | Data Portability ---
Author Organization [facility], Main Office Address [address] [facility] [place] [address] Care Team Providers Care Cold Rolling Coordinator Name Role Phone IVETTE MARTINES Urogynecologist VINCENT MUSE Public Service Administrator [facility] Pain Management JEANNIE METZ Primary Care Provider ROXANN SOSA General Duty Nurse Assessment No assessment recorded. Plan of Treatment Reminders Order Date Submit Date Provider Last Modified By Organization Details Last Modified Time Details Appointments None recorded. Lab microalbum in, urine 2017 018 [facility], [address], [place] [address], [place], [address], 8 14:18:56 hemoglobin A1C, fingerstic k 2017 018 In-Office Order, Internal Use Only DO Not Attach Compendium DO Not Attach Compendium, Do Not Delete/merge, [id number] 8 09:51:21 glucose, fingerstic k, blood 2017 018 In-Office Order, Internal Use Only DO Not Attach Compendium DO Not Attach Compendium, Do Not Delete/merge, [id number] 8 09:51:21 lipid panel, serum 2017 018 [facility], [address], [address], [place], [address], 8 14:47:06 CMP, serum or plasma 2017 018 [facility], [address] , [place] , [place], [address], 8 14:47:05 Referral cook pickled 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 PT. is on Lyrica. Needs diabetic foot care. 2017 018 [email or web address] Not available 8 10:19:37 diabetic ophthalmol ogy referral - Diabetic eye exam. 2017 018 [email or web address] Not available 9 10:35:[address]/dietiti an referral 2017 018 [email or web address] Not available 8 10:19:[address] referral 2017 018 abolcun Not available 8 11:11:58 urogynecol ogist referral - this pt is at no increased risk for upcoming bladder-tsering tox procedurer on Mar 02, 2017. There are no contraindi cations- Pt feels well and will continue current tx. 2016 017 kathi Martines MD, [facility] [place], [address], 7 09:00:31 Procedures None recorded. Surgeries None recorded. Imaging MAMMO, screening, bilateral - Perform Diagnostic Mammogram and Breast Ultrasound if needed / Perform Ultrasound Guided Aspiration and/or Breast Biopsy if warranted 2017 018 [facility], [address] [place], [address], 8 11:28:39 XR, lumbosacra l spine - low back pain with radiculopa thy 2016 017 [facility], [address] [place], [address], 7 15:26:52 XR, sacroiliac joint(s) - left low back pain with radiculopa thy 2016 017 [facility], [address] [place], [address], 7 15:26:53 Medication Orders Chantix Starting Month Box 0.5 mg (11)-1 mg (42) tablets in dose pack 2017 018 [facility]Pharmacy #[id number], [address] [facility] [place], [address], 8 10:04:23 Chantix Continuing Month Box 1 mg tablet 2017 018 [facility]/Pharmacy #[id number], [address] [facility] [place], [address], 8 10:04:21 Temovate 0.05 % topical ointment 2017 018 [email or web address]/Pharmacy #[id number], [address] [facility] [place], [address], 8 13:42:34 meloxicam 15 mg tablet 2016 017 [facility]/Pharmacy #[id number], [phone] [place], [address], 8 09:59:25 methocarba mol 750 mg tablet 2016 017 [facility]/Pharmacy #1130, [phone] [place], [address], 7 09:36:04 acetaminop hen 300 mg-codeine 30 mg tablet 2016 017 [facility]/Pharmacy #1130, [phone] [place], [address], 8 09:58:39 Patient TargetsNo targets recorded. Patient Instructions Encounter Date Encounter Id Patient Instructions Last Modified By Organization Details Last Modified Time 09/30/2016 [id number] Urinary Tract Infection (UTI) in Women: Care Instructions Not available 09/30/2016 14:09:22 Call or return for worsening or concerns [email or web address] Not available 09/30/2016 10:28:38 At [facility] follow up visit, all current and discharge [...] care. [email or web address] Not available 09/30/2016 17:31:22 01/06/2017 [id number] acute low back pain: exercises Not available 01/06/2017 15:45:22 getting back to normal after low back pain: care instructions Not available 01/06/2017 15:45:22 Call or return for worsening or concerns [email or web address] Not available 01/06/2017 15:36:08 I have reviewed the note and agree with the assessment and plan of care. [email or web address] Not available 01/06/2017 16:37:20 08/03/2017 [id number] preventing falls: care instructions [email or web address] Not available 08/03/2017 10:24:23 Cervical Cancer Screening mdalessandro Not available 08/03/2017 10:24:23 11/16/2017 [id number] dash diet: care instructions Not available 11/16/2017 [...] Kevin Burns, Internal Medicine, Encounter Date: 02/19/2017 Senior Scientist Referral for Sc reening for malignant neoplasm of cervix Referring Physician: Kevin Burns, Internal Medicine, Encounter Date: 08/03/2017 Mobile Manager Referral for Diso rder of nervous system due to diabetes mellitus Diabetes Mellitus TYpe II with diabetic peripheral neuropathy. PT. is on Lyrica. Needs diabetic foot care. Referring Physician: Jeannie Metz, Internal Medicine, Encounter Date: 11/16/2017 Diabetic Ophthalmology Refer ral for Uncontrolled type 2 diabetes mellitus Diabetic eye exam. Referring Physician: Jeannie Metz, Internal Medicine, Encounter Date: 11/16/2017 Felt Hat Steamer/dietitian Refer ral for Body mass index 30+ - obesity Referring Physician: Jeannie Metz, Internal Medicine, Encounter Date: 11/16/2017 Results Created Date Observation Date Name Description Value Unit Range Abnormal Flag Note LastModifiedBy Organization Detail LastModifiedTime 09/20/19 17 09/19/2016 urina lysis , dipst ick Leukocytes Negati ve Not Available In-Office Order Internal Use Only DO Not Attach Compendium DO Not Attach Compendium, Do Not Delete/merge, [id number] 09/19/2016 10:57:50 09/20/19 17 09/19/2016 urina lysis , dipst ick Nitrite positi ve Not Available In-Office Order Internal Use Only DO Not Attach Compendium DO Not Attach Compendium, Do Not Delete/merge, [id number] 09/19/2016 10:57:50 09/20/19 17 09/19/2016 urina lysis , dipst ick Urobilinogen .2 Not Available In-Of fice Order Internal Use Only DO Not Attach Compendium DO Not Attach Compendium, Do Not Delete/merge, [id number] 09/19/2016 10:57:50 09/20/19 17 09/19/2016 urina lysis , dipst ick Protein Negati ve Not Available In-Office Order Internal Use Only DO Not Attach Compendium DO Not Attach Compendium, Do Not Delete/merge, 09/19/2016 10:57:50 09/20/19 17 09/19/2016 urina lysis , dipst ick pH 6.0 Not Available In-Office Order Internal Use Only DO Not Attach Compendium DO Not Attach Compendium, Do Not Delete/merge, 09/19/2016 10:57:50 09/20/19 17 09/19/2016 urina lysis , dipst ick Blood Non-He molyze d: Trace Not Available In-Office Order Internal Use Only DO Not Attach Compendium DO Not Attach Compendium, Do Not Delete/merge, 09/19/2016 10:57:50 09/20/1909/19/2016 urina lysis , dipst ick Specific [place] 1.015 Not Available In-Off ice Order Internal Use Only DO Not Attach Compendium DO Not Attach Compendium, Do Not Delete/merge, 09/19/2016 10:57:50 09/20/19 17 09/19/2016 urina lysis , dipst ick Ketone Negati ve Not Available In-Office Order Internal Use Only DO Not Attach Compendium DO Not Attach Compendium, Do Not Delete/merge, 09/19/2016 10:57:50 09/20/1909/19/2016 urina lysis , dipst ick Bilirubin Negati ve Not Available In-Office Order Internal Use Only DO Not Attach Compendium DO Not Attach Compendium, Do Not Delete/merge, 09/19/2016 10:57:50 09/20/1909/19/2016 urina lysis , dipst ick Glucose 1000 Not Available In-Office Order Internal Use Only DO Not Attach Compendium DO Not Attach Compendium, Do Not Delete/merge, 09/19/2016 10:57:50 09/20/1909/19/2016 urina lysis , dipst ick Appearance Slight ly Cloudy Not Available In-Office Order Internal Use Only DO Not Attach Compendium DO Not Attach Compendium, Do Not Delete/merge, 09/19/2016 10:57:50 09/20/1909/19/2016 urina lysis , dipst ick Color Yellow Not Available In-Office Order Internal Use Only DO Not Attach Compendium DO Not Attach Compendium, Do Not Delete/merge, [id number] 09/19/2016 10:57:50 09/20/1909/20/2016 urina lysis , compl ete appear/color LIGHT YELLO W CLEAR Not Available [facility] (Centralized Electronic Ordering - All Locations) Patient Can Go To The Location Of Their Choice, 09/20/2016 01:39:07 09/20/1909/20/2016 urina lysis , compl ete sp. gravity 1.015 (1.002 -1.030 ) Not Available [facility] (Centralized Electronic Ordering - All Locations) Patient Can Go To The Location Of Their Choice, 09/20/2016 01:39:07 09/20/1909/20/2016 urina lysis , compl ete urine pH 6.0 (4.0-8 .0) Not Available [facility] (Centralized Electronic Ordering - All Locations) Patient Can Go To The Location Of Their Choice, 09/20/2016 01:39:07 09/20/1909/20/2016 urina lysis , compl ete urine albumin NEGATI VE (neg) Not Available [facility] (Centralized Electronic Ordering - All Locations) Patient Can Go To The Location Of Their Choice, 09/20/2016 01:39:07 09/20/1909/20/2016 urina lysis , compl ete urine glucose 3+ (neg) abnormal Not Available [facility] (Centralized Electronic Ordering - All Locations) Patient Can Go To The Location Of Their Choice, 09/20/2016 01:39:07 09/20/1909/20/2016 urina lysis , compl ete urine ketones NEGATI VE (neg) Not Available [facility] (Centralized Electronic Ordering - All Locations) Patient Can Go To The Location Of Their Choice, 09/20/2016 01:39:07 09/20/1909/20/2016 urina lysis , compl ete urine bilirubin NEGATI VE (neg) Not Available [facility] (Centralized Electronic Ordering - All Locations) Patient Can Go To The Location Of Their Choice, 09/20/2016 01:39:07 09/20/1909/20/2016 urina lysis , compl ete urine hemoglobn 1+ (neg) abnormal Not Available [facility] (Centralized Electronic Ordering - All Locations) Patient Can Go To The Location Of Their Choice, 09/20/2016 01:39:07 09/20/1909/20/2016 urina lysis , compl ete urine nitrite POSITI VE (neg) abnormal Not Available [facility] (Centralized Electronic Ordering - All Locations) Patient Can Go To The Location Of Their Choice, 09/20/2016 01:39:07 09/20/1909/20/2016 urina lysis , compl ete urine leukocyte 2+ (neg) abnormal Not Available [facility] (Centralized Electronic Ordering - All Locations) Patient Can Go To The Location Of Their Choice, 09/20/2016 01:39:09/20/1909/20/2016 urina lysis , compl ete urobilinogen NORMAL mg/dL (norm) Not Available [facility] (Centralized Electronic Ordering - All Locations) Patient Can Go To The Location Of Their Choice, 09/20/2016 01:39:07 09/20/1909/20/2016 urina lysis , compl ete urine WBC's 21 /hpf (0-5) high Not Available [facility] (Centralized Electronic Ordering - All Locations) Patient Can Go To The Location Of Their Choice, 09/20/2016 01:39:07 09/20/1909/20/2016 urina lysis , compl ete urine RBC's 9 /hpf (<3) high Not Available [facility] (Centralized Electronic Ordering - All Locations) Patient Can Go To The Location Of Their Choice, 09/20/2016 01:39:07 09/20/1909/20/2016 urina lysis , compl ete bacteria SLIGHT hpf (neg) abnormal Not Available [facility] (Centralized Electronic Ordering - All Locations) Patient Can Go To The Location Of Their Choice, 09/20/2016 01:39:07 09/20/1909/20/2016 urina lysis , compl ete squamous epith 1 /hpf Not Available [facility] (Centralized Electronic Ordering - All Locations) Patient Can Go To The Location Of Their Choice, 09/20/2016 01:39:07 09/20/1909/19/2016 cultu re, urine specimen description CLEAN CATCH (URINE ) Not Available [facility] (Centralized Electronic Ordering - All Locations) Patient Can Go To The Location Of Their Choice, 09/21/2016 10:27:40 09/20/1909/19/2016 cultu re, urine special requests NONE Not Available [facility] (Centralized Electronic Ordering - All Locations) Patient Can Go To The Location Of Their Choice, 09/21/2016 10:27:40 09/20/1909/21/2016 cultu re, urine culture >100,0 00 COL/ML KLEBSI ANDREA PNEUMO NIAE Not Available [facility] (Centralized Electronic Ordering - All Locations) Patient Can Go To The Location Of Their Choice, 09/21/2016 10:27:40 09/20/1909/21/2016 cultu re, urine report status FINAL 2016 Not Available [facility] (Centralized Electronic Ordering - All Locations) Patient Can Go To The Location Of Their Choice, 09/21/2016 10:27:40 09/20/1909/21/2016 cultu re, urine organism ORGANI SM >100,0 00 COL/ML KLEBSI ANDREA PNEUMO NIAE Not Available [facility] (Centralized Electronic Ordering - All Locations) Patient Can Go To The Location Of Their Choice, 09/21/2016 10:27:40 09/20/1909/21/2016 cultu re, urine method METHOD MIN. INHIB. CONC. (MCG/M L) Not Available [facility] (Centralized Electronic Ordering - All Locations) Patient Can Go To The Location Of Their Choice, 09/21/2016 10:27:40 09/20/1909/21/2016 cultu re, urine ampicillin AMPICI LLIN RESIST ANT resistant Not Available [facility] (Centralized Electronic Ordering - All Locations) Patient Can Go To The Location Of Their Choice, 09/21/2016 10:27:40 09/20/1909/21/2016 cultu re, urine ampicillin/s ulbactam AMPICI LLIN/S ULBACT AM SUSCEP TIBLE susceptib le Not Available [facility] (Centralized Electronic Ordering - All Locations) Patient Can Go To The Location Of Their Choice, 09/21/2016 10:27:40 09/20/19 09/21/2016 cultu re, urine amoxicillin/ clavulanic acid AMOXIC ILLIN/ CLAVUL AN SUSCEP TIBLE susceptib le Not Available [facility] (Centralized Electronic Ordering - All Locations) Patient Can Go To The Location Of Their Choice, 09/21/2016 10:27:40 09/20/1909/21/2016 cultu re, urine cefazolin CEFAZO CLAUDIO SUSCEP TIBLE susceptib le Not Available [facility] (Centralized Electronic Ordering - All Locations) Patient Can Go To The Location Of Their Choice, 09/21/2016 10:27:40 09/20/1909/21/2016 cultu re, urine cefepime CEFEPI ME SUSCEP TIBLE susceptib le Not Available [facility] (Centralized Electronic Ordering - All Locations) Patient Can Go To The Location Of Their Choice, 09/21/2016 10:27:40 09/20/1909/21/2016 cultu re, urine ceftriaxone CEFTRI AXONE SUSCEP TIBLE susceptib le Not Available [facility] (Centralized Electronic Ordering - All Locations) Patient Can Go To The Location Of Their Choice, 09/21/2016 10:27:40 09/20/19 17 09/21/2016 cultu re, urine ciprofloxaci n CIPROF LOXACI N SUSCEP TIBLE susceptib le Not Available [facility] (Centralized Electronic Ordering - All Locations) Patient Can Go To The Location Of Their Choice, 09/21/2016 10:27:40 09/20/19 17 09/21/2016 cultu re, urine gentamicin GENTAM ICIN SUSCEP TIBLE susceptib le Not Available [facility] (Centralized Electronic Ordering - All Locations) Patient Can Go To The Location Of Their Choice, 09/21/2016 10:27:40 09/20/19 17 09/21/2016 cultu re, urine levofloxacin LEVOFL OXACIN SUSCEP TIBLE susceptib le Not Available [facility] (Centralized Electronic Ordering - All Locations) Patient Can Go To The Location Of Their Choice, 09/21/2016 10:27:40 09/20/19 17 09/21/2016 cultu re, urine meropenem MEROPE NEM SUSCEP TIBLE susceptib le Not Available [facility] (Centralized Electronic Ordering - All Locations) Patient Can Go To The Location Of Their Choice, 09/21/2016 10:27:40 09/20/1909/21/2016 cultu re, urine nitrofuranto in NITROF URANTO IN SUSCEP TIBLE susceptib le Not Available [facility] (Centralized Electronic Ordering - All Locations) Patient Can Go To The Location Of Their Choice, 09/21/2016 10:27:40 09/20/19 17 09/21/2016 cultu re, urine piperacillin /tazobactam PIPERA CILLIN /TAZOB AC SUSCEP TIBLE susceptib le Not Available [facility] (Centralized Electronic Ordering - All Locations) Patient Can Go To The Location Of Their Choice, 09/21/2016 10:27:40 09/20/19 17 09/21/2016 cultu re, urine trimeth/sulf amethox TRIMET H/SULF AMETHO X RESIST ANT resistant Not Available [facility] (Centralized Electronic Ordering - All Locations) Patient Can Go To The Location Of Their Choice, 09/21/2016 10:27:40 09/20/19 17 09/21/2016 cultu re, urine tetracycline TETRAC YCLINE SUSCEP TIBLE susceptib le Not Available [facility] (Centralized Electronic Ordering - All Locations) Patient Can Go To The Location Of Their Choice, 09/21/2016 10:27:40 11/17/1911/16/2017 gluco sekorey rstic k, blood Blood Glucose: mg/dl 255 Not Available In-Off ice Order Internal Use Only DO Not Attach Compendium DO Not Attach Compendium, Do Not Delete/merge, [id number] 11/16/2017 09:34:27 11/17/1911/16/2017 hemog lobin A1Ckorey rstic k HA1C 10.0 % 4-6 Not Available In-Office Order Internal Use Only DO Not Attach Compendium DO Not Attach Compendium, Do Not Delete/merge, [id number] 11/16/2017 09:33:53 11/19/19 18 11/18/2017 micro album in, urine micro-albumi n 146.4 mg/L (0-20) high Not Available [facility] (Centralized Electronic Ordering - All Locations) Patient Can Go To The Location Of Their Choice, 11/18/2017 14:18:56 11/19/19 18 11/18/2017 micro album in, urine malb/creat ratio 130.5 mg/gm (0-20) high Not Available [facility] (Centralized Electronic Ordering - All Locations) Patient Can Go To The Location Of Their Choice, 11/18/2017 14:18:56 11/19/1911/18/2017 micro album in, urine urine creat for micro albumin 112.2 mg/dL Not Available [facility] (Centralized Electronic Ordering - All Locations) Patient Can Go To The Location Of Their Choice, 11/18/2017 14:18:56 11/19/1911/18/2017 CMP, serum or plasm a glucose 203 mg/dL (70-99 ) high Not Available [facility] (Centralized Electronic Ordering - All Locations) Patient Can Go To The Location Of Their Choice, 11/18/2017 14:47:05 11/19/1911/18/2017 CMP, serum or plasm a BUN 13 mg/dL (6-20) Not Available [facility] (Centralized Electronic Ordering - All Locations) Patient Can Go To The Location Of Their Choice, 11/18/2017 14:47:05 11/19/1911/18/2017 CMP, serum or plasm a creatinine 0.6 mg/dL (0.5-1 .0) Not Available [facility] (Centralized Electronic Ordering - All Locations) Patient Can Go To The Location Of Their Choice, 11/18/2017 14:47:05 11/19/1911/18/2017 CMP, serum or plasm a sodium 142 mmol/ L (133-1 45) Not Available [facility] (Centralized Electronic Ordering - All Locations) Patient Can Go To The Location Of Their Choice, 11/18/2017 14:47:05 11/19/1911/18/2017 CMP, serum or plasm a potassium 4.5 mmol/ L (3.6-5 .2) Not Available [facility] (Centralized Electronic Ordering - All Locations) Patient Can Go To The Location Of Their Choice, 11/18/2017 14:47:05 11/19/1911/18/2017 CMP, serum or plasm a chloride 103 mmol/ L (98-10 7) Not Available [facility] (Centralized Electronic Ordering - All Locations) Patient Can Go To The Location Of Their Choice, 11/18/2017 14:47:11/19/1911/18/2017 CMP, serum or plasm a bicarbonate 29 mmol/ L (22-29 ) Not Available [facility] (Centralized Electronic Ordering - All Locations) Patient Can Go To The Location Of Their Choice, 11/18/2017 14:47:11/19/1911/18/2017 CMP, serum or plasm a anion gap 10 (4-17) Not Available [facility] (Centralized Electronic Ordering - All Locations) Patient Can Go To The Location Of Their Choice, 11/18/2017 14:47:11/19/1911/18/2017 CMP, serum or plasm a albumin 3.9 gm/dL (3.4-4 .8) Not Available [facility] (Centralized Electronic Ordering - All Locations) Patient Can Go To The Location Of Their Choice, 11/18/2017 14:47:11/19/1911/18/2017 CMP, serum or plasm a calcium 9.0 mg/dL (8.6-1 0.5) Not Available [facility] (Centralized Electronic Ordering - All Locations) Patient Can Go To The Location Of Their Choice, 11/18/2017 14:47:11/19/1911/18/2017 CMP, serum or plasm a bilirubin,to julieta 0.2 mg/dL (0-1.2 ) Not Available [facility] (Centralized Electronic Ordering - All Locations) Patient Can Go To The Location Of Their Choice, 11/18/2017 14:47:11/19/1911/18/2017 CMP, serum or plasm a total protein 6.6 gm/dL (6.2-8 .2) Not Available [facility] (Centralized Electronic Ordering - All Locations) Patient Can Go To The Location Of Their Choice, 11/18/2017 14:47:11/19/1911/18/2017 CMP, serum or plasm a Ag ratio 1.4 Not Available [facility] (Centralized Electronic Ordering - All Locations) Patient Can Go To The Location Of Their Choice, 11/18/2017 14:47:11/19/1911/18/2017 CMP, serum or plasm a AST 12 U/L (0-32) Not Available [facility] (Centralized Electronic Ordering - All Locations) Patient Can Go To The Location Of Their Choice, 11/18/2017 14:47:11/19/1911/18/2017 CMP, serum or plasm a alk phos 108 U/L (35-10 4) high Not Available [facility] (Centralized Electronic Ordering - All Locations) Patient Can Go To The Location Of Their Choice, 11/18/2017 14:47:11/19/1911/18/2017 CMP, serum or plasm a ALT 23 U/L (0-33) Not Available [facility] (Centralized Electronic Ordering - All Locations) Patient Can Go To The Location Of Their Choice, 11/18/2017 14:47:11/19/1911/18/2017 CMP, serum or plasm a est GFR [...] [employer]. Not Available [facility] (Centralized Electronic Ordering - All Locations) Patient Can Go To The Location Of Their Choice, 11/18/2017 14:47:11/19/1911/18/2017 CMP, serum or plasm a est GFR [...] [employer]. Not Available [facility] (Centralized Electronic Ordering - All Locations) Patient Can Go To The Location Of Their Choice, [facility] 11/18/2017 14:47:05 11/19/1911/18/2017 lipid panel , serum cholesterol, total 142 mg/dL (<200) Not Available [facility] (Centralized Electronic Ordering - All Locations) Patient Can Go To The Location Of Their Choice, [facility] 11/18/2017 14:47:06 11/19/19 18 11/18/2017 lipid panel , serum triglyceride 123 mg/dL (<150) Not Available [facility] (Centralized [facility] Ordering - All Locations) Patient Can Go To The Location Of Their Choice, [facility] 11/18/2017 14:47:06 11/19/19 18 11/18/2017 lipid panel , serum HDL chol 42 mg/dL (>39) Not Available [facility] (Centralized Electronic Ordering - All Locations) Patient Can Go To The Location Of Their Choice, [facility] 11/18/2017 14:47:06 11/19/19 18 11/18/2017 lipid panel , serum LDL cholesterol, calculated 75 mg/dL (0-130 ) Not Available [facility] (Centralized Electronic Ordering - All Locations) Patient Can Go To The Location Of Their Choice, [facility] 11/18/2017 14:47:06 11/19/1911/18/2017 lipid panel , serum non HDL cholesterol (calc) 100 mg/dL (<160) Not Available [facility] (Centralized Electronic Ordering - All Locations) Patient Can Go To The Location Of Their Choice, [facility] 11/18/2017 14:47:06 09/25/19 17 09/23/2016 US, kidne y No observ ation record ed. [email or web address] Not Available 17:51:26 01/08/20 17 01/06/2017 XR, lumbo sacra l spine No observ ation record ed. [email or web address] [facility] [address] [address], [place], [address], 01/09/2017 14:52:34 01/08/20 17 01/06/2017 XR, sacro iliac joint (s) No observ ation record ed. [email or web address] [facility] [address] [address], [place], [address], 01/09/2017 14:52:34 08/18/19 18 08/11/2017 MAMMO , scree solis, bilat eral No observ ation record ed. [email or web address] [facility] [address] [facility], [place], [address], 08/17/2017 16:21:15 Result Notes None recorded. Problems Name Problem SNOMED Code Status Onset Date Resolution Date Notes Provider Name and Address Organization Details Recorded Time Mya goldsmithen jim 59936001 Active Thalia emmanuel, [facility] 8 14:05:25 Hyperlip idemia 20227986 Active Thalia emmanuel, [facility] 8 14:05:25 Diabetes mellitus 52663587 Completed 11/16/2017 Jeannie Metz PA-C [address] [facility] [address], [place], [address] , [facility] 8 09:55:17 Low back pain 823301456 Completed 08/21/2016 Dyan emmanuel, [facility] 7 08:56:16 Gastroes ophageal reflux disease 236955862 Active Thalia emmanuel, [facility] 8 14:05:25 Acute bronchit is 08452892 Completed 200711/22/2013 RECORDED 02/01/20 08 10:12AM BY PASCULA PUTNAM MA, ANNOTATI ON/DAYNE emmanuel, [facility] 6 12:21:01 Acute pharyngi tis 999867254 Completed 201211/22/2013 RECORDED 11/10/19 13 9:52AM BY MALICK HILL MA, ANNOTATI ON/DAYNE emmanuel [facility] 6 12:21:01 Chronic allergic conjunct ivitis 72779831 Completed 201211/22/2013 RECORDED 05/11/19 13 9:31AM BY MALICK HILL MA, ANNOTATI ON/ADDEN DUM Kevin evans null, [facility] 6 12:21:01 Allergy Completed 201111/22/2013 RECORDED 11/17/19 12 9:29AM BY IVETH OSUNA I ANNOTATI ON/ADDEN DUM Kevin evans null, [facility] 6 12:21:01 Examinat ion for suspecte d mental disorder Completed 201211/22/2013 RECORDED 11/10/19 13 9:52AM BY MALICK HILL MA, ANNOTATI ON/ADDEN DUM Kevin evans null, [facility] 6 12:21:01 Screenin g for malignan t neoplasm of breast Completed 201111/22/2013 RECORDED 11/17/19 12 9:29AM BY JAYASHREE DOUGLASATI ON/ADDEN DUM Jessica Gomez MA null, [facility] 7 10:15:40 Screenin g for malignan t neoplasm of breast Completed 09/30/2016 JEM Barnett, [facility] 7 10:15:40 Screenin g for malignan t neoplasm of cervix Completed 201211/22/2013 RECORDED 05/11/19 13 9:31AM BY MALICK HILL MA, ANNOTATI ON/ADDEN DUM Dyan emmanuel, [facility] 7 08:56:00 Constipa tion 16422481 Completed 08/21/2016 Dyan emmanuel, [facility] 7 08:55:40 Risk of exposure to communic able disease 081415888 Completed 201111/22/2013 RECORDED 11/17/19 12 9:29AM BY JAYASHREE DOUGLASATI ON/ADDEN DUM Kevin evans null, [facility] 6 12:21:01 Renal disorder due to type 2 diabetes mellitus 368381252 Active Thalia Alvarez cholo, [facility] 8 14:05:25 Dysfunct ional uterine bleeding Completed 201111/22/2013 STORY: SEVERE CRAMPING ; RECORDED 11/17/19 12 9:29AM BY RICK DOUGLAS ON/ADDEN DUM Kevin evans null, [facility] 6 12:21:01 Divertic ulitis of colon 406423096 Active Thalia Alvarez null, [facility] 8 14:05:25 Dysuria 45848517 Completed 09/16/2016 Dayn emmanuel, [facility] 7 15:45:17 Dysuria 85885964 Completed 201211/22/2013 RECORDED 05/11/19 13 9:31AM BY MALICK HILL MA, RICK ON/ADDEN DUM Dyan emmanuel, [facility] 7 15:45:17 Follow-u p encounte r Completed 201211/22/2013 RECORDED 03/29/20 13 10:46AM BY EMMA SAGASTUME MA, RICK ON/[facility] Kevin emmanuel, [facility] 6 12:21:01 Influenz a vaccine needed 52812884635 06 Completed 08/21/2016 Dyan emmanuel, [facility] 7 08:55:43 Influenz a vaccine needed 37235324960 06 Completed 200711/22/2013 RECORDED 08/05/19 08 10:33AM BY GABRIELA TAYLORIC AL SUMMARY Dyan emmanuel, [facility] 7 08:55:43 Tobacco user 311443524 Completed 201211/22/2013 RECORDED 03/29/20 13 10:46AM BY EMMA SAGASTUME MA, RICK ON/ADD DUM Kevin emmanuel, [facility] 6 12:21:01 History of clinical finding in subject 379093379 Completed 08/21/2016 Dyan Braun MA null, [facility] 7 08:56:29 Adult health examinat ion Completed 201211/22/2013 RECORDED 06/24/19 13 8:51AM BY MALICK HILL MA, ANNOTATI ON/ADDEN DUM Kevin Acosta'Alessand ro null, [facility] 6 12:21:01 General examinat ion of patient Completed 200711/22/2013 RECORDED 02/01/20 08 10:12AM BY PASCUAL PUTNAM MA, ANNOTATI ON/ADDEN DUM Kevin Acosta'Alessand ro null, [facility] 6 12:21:01 Hirsuduke m 385216146 Active Thalia Alvarez null, [facility] 8 14:05:25 Ingrowin g nail 186709063 Completed 201111/22/2013 RECORDED 11/17/19 12 9:29AM BY JAYASHREE DOUGLASATI ON/ADDEN DUM Kevin Acosta'Maida ro null, [facility] 6 12:21:01 Laborato ry procedur e performe d 078682228 Completed 08/21/2016 Dyan emmanuel, [facility] 7 08:56:04 Menstrua tion finding Completed 201211/22/2013 RECORDED 03/29/20 13 10:46AM BY EMMA SAGASTUME MA, ANNOTATI ON/ADDEN DUM Kevin Acosta'Alelizett ro null, [facility] 6 12:21:01 Dysmenor sanjay 408062351 Completed 201211/22/2013 RECORDED 03/29/20 13 10:47AM BY EMMA SAGASTUME MA, ANNOTATI ON/ADDEN DUM Kevin Acosta'Alelizett ro null, [facility] 6 12:21:01 Fibromyo sitis 70960321 Completed 201111/22/2013 STORY: DUE TO ATORVAST ATIN (TOLERAT ES SIMVASTA TIN); RECORDED 03/17/20 12 2:26PM BY MALICK HILL MA, RICK ON/ADDEN DUM Kevin Henry ro null, [facility] 6 12:21:01 Administ ration of bacteria l and viral vaccine Completed 200711/22/2013 RECORDED 02/01/20 08 10:14AM BY PASCUAL PUTNAM MA, OFFICE VISIT Kevin Henry ro null, [facility] 6 12:21:01 Female genital organ symptoms 967718459 Completed 201211/22/2013 RECORDED 05/11/19 13 9:31AM BY MALICK HILL MA, [facility] Kevin Henry ro null, [facility] 6 12:21:01 Tobacco user 767021532 Active Thalia Alvarez null, [facility] 8 14:05:25 Polycyst ic ovaries Completed 201111/22/2013 RECORDED 11/17/19 12 9:29AM BY RICK DOUGLAS ON/ADDEN MEGAN Henry ro null, [facility] 6 12:21:01 Proteinu radha 20004552 Active Thalia Alvarez null, [facility] 8 14:05:25 Proteinu radha 83882298 Completed 201111/22/2013 RECORDED 11/17/19 12 9:29AM BY [facility] Kevin Henry ro null, [facility] 6 12:21:01 Eruption 656587349 Completed 201111/22/2013 IMPRESSI ON: PT WITH PROGRESS [...] AFTER TX.; RECORDED 11/17/19 12 9:29AM BY JAYASHREE DOUGLASATI ON/ADDEN DUM Kevin Acosta'Alessand ro null, [facility] 6 12:21:01 Sleep apnea 96536194 Completed 201111/22/2013 RECORDED 11/17/19 12 9:29AM BY JAYASHREE DOUGLASATI ON/ADDEN DUM Kevin Acosta'Alessand ro null, [facility] 6 12:21:01 Tobacco dependen ce syndrome 82002259 Completed 201111/22/2013 RECORDED 06/21/19 12 11:13AM BY PASCUAL PUTNAM MA, JAYASHREEATI ON/ADDEN DUM Kevin Acosta'Alessand ro null, [facility] 6 12:21:01 Type 2 diabetes mellitus without complica tion 699181925 Completed 201111/22/2013 RECORDED 11/17/19 12 9:29AM BY RICK DOUGLAS ON/ADDEN DUM Kevin Acosta'Alessand ro null, [facility] 6 12:21:01 Uncontro lled type 2 diabetes mellitus 985352370 Completed 200811/22/2013 RECORDED 05/30/19 09 7:36AM BY PASCUAL PUTNAM MA, RICK ON/ADDEN DUM Kevin Acosta'Alessand ro null, [facility] 6 12:21:01 Urinary tract infectio us disease 55197137 Completed 201211/22/2013 STORY: CT NEG @ [facility]/N O PATHOLOG Y. F/U PRN; RECORDED 03/29/20 13 10:46AM BY EMMA SAGASTUME MA, RICK ON/ADDEN DUM Kevin Henry ro null, [facility] 6 12:21:01 Vaginiti s and vulvovag initis Completed 201211/22/2013 RECORDED 06/24/19 13 8:51AM BY MALICK HILL MA, ANNOTATI ON/ADDEN DUM Dyan Braun MA null, [facility] 7 08:55:57 Candidal vulvovag initis 85277924 Completed 200711/22/2013 RECORDED 02/01/20 08 10:12AM BY PASCUAL PUTNAM MA, ANNOTATI ON/ADDEN DUM Kevin BanegasAleandreaand ro null, [facility] 6 12:21:01 Acute bronchit is 06539443 Completed 200712/12/2013 RECORDED 02/01/20 08 10:12AM BY PASCUAL PUTNAM MA, ANNOTATI ON/ADDEN DUM Kevin BanegasAlessand ro null, [facility] 6 12:21:01 Acute pharyngi tis 273002829 Completed 201212/12/2013 RECORDED 11/10/19 13 9:52AM BY MALICK HILL MA, ANNOTATI ON/ADDEN DUM Kevin Acosta'Alessand ro null, [facility] 6 12:21:01 Chronic allergic conjunct ivitis 20117735 Completed 201212/12/2013 RECORDED 05/11/19 13 9:31AM BY MALICK HILL MA, ANNOTATI ON/ADDEN DUM Kevin Acosta'Alessand ro null, [facility] 6 12:21:01 Allergy Completed 201112/12/2013 RECORDED 11/17/19 12 9:29AM BY RICK DOUGLAS ON/ADDEN DUM Kevin Elsy'Alessand ro null, [facility] 6 12:21:01 Examinat ion for suspecte d mental disorder Completed 201212/12/2013 RECORDED 11/10/19 13 9:52AM BY MALICK HILL MA, ANNOTATI ON/ADDEN DUM Kevin emmanuel, [facility] 6 12:21:01 Backache 106773011 Completed 08/21/2016 Dyan emmanuel [facility] 7 08:55:50 Screenin g for malignan t neoplasm of breast Completed 201112/12/2013 RECORDED 11/17/19 12 9:29AM BY RICK DOUGLAS ON/ADDEN DUM JEM Barnett [facility] 7 10:15:40 Screenin g for malignan t neoplasm of cervix Completed 08/21/2016 Dyan emmanuel, [facility] 7 08:56:00 Screenin g for malignan t neoplasm of cervix Completed 201212/12/2013 RECORDED 05/11/19 13 9:31AM BY MALICK HILL MA, ANNOTATI ON/ADDEN DUM Dyan emmanuel [facility] 7 08:56:00 Risk of exposure to communic able disease 021660021 Completed 201112/12/2013 RECORDED 11/17/19 12 9:29AM BY RICK DOUGLAS ON/ADDEN DUM Kevin emmanuel, [facility] 6 12:21:01 Depressi ve disorder 79581660 Completed 05/28/2014 Kevin emmanuel [facility] 6 12:21:01 Dysfunct ional uterine bleeding Completed 201112/12/2013 STORY: SEVERE CRAMPING ; RECORDED 11/17/19 12 9:29AM BY RICK DOUGLAS ON/ADDEN DUM Kevin emmanuel [facility] 6 12:21:01 Follow-u p encounte r Completed 201212/12/2013 RECORDED 03/29/20 13 10:46AM BY EMMA SAGASTUME MA, ANNOTATI ON/ADDEN DUM Kevin evans null, [facility] 6 12:21:01 Influenz a vaccine needed [id number] 06 Completed 200912/12/2013 DATE: 04/23/20 10; RECORDED 11/16/19 14 12:57PM BY PASCUAL PUTNAM MA, ANNOTATI ON/ADDEN DUM Dyan Braun MA null, [facility] 7 08:55:43 Tobacco user [id number] Completed 201212/12/2013 RECORDED 03/29/20 13 10:46AM BY EMMA SAGASTUME MA, ANNOTATI ON/ADDEN DUM Kevin evans null, [facility] 6 12:21:01 Adult health examinat ion Completed 201212/12/2013 RECORDED 06/24/19 13 8:51AM BY MALICK HILL MA, ANNOTATI ON/ADDEN DUM Kevin evans null, [facility] 6 12:21:01 General examinat ion of patient Completed 200712/12/2013 RECORDED 02/01/20 08 10:12AM BY PASCUAL PUTNAM MA, ANNOTDOMONIQUE ON/ADDEN DUM Kevin evans null, [facility] 6 12:21:01 Ingrowin g nail 137739558 Completed 201112/12/2013 RECORDED 11/17/19 12 9:29AM BY IVETH OSUNA I, JAYASHREEATI ON/ADDEN DUM Kevin evans null, [facility] 6 12:21:01 Laborato ry procedur e performe d 719910466 Completed 201312/12/2013 RECORDED 11/16/19 14 12:57PM BY PASCUAL PUTNAM MA, ANNOTATI ON/ADDEN DUM Dyan emmanuel, [facility] 7 08:56:04 Low back pain 062856560 Completed 201312/12/2013 RECORDED 11/16/19 14 12:56PM BY PASCUAL PUTNAM MA, ANNOTATI ON/ADDEN MEGAN Braun MA null, [facility] 7 08:56:16 Menstrua tion finding Completed 201212/12/2013 RECORDED 03/29/20 13 10:46AM BY EMMA SAGASTUME MA, ANNOTATI ON/ADDGLENN evans null, [facility] 6 12:21:01 Dysmenor sanjay 683165331 Completed 201212/12/2013 RECORDED 03/29/20 13 10:47AM BY EMMA SAGASTUME MA, ANNOTATI ON/ADDEN MEGAN emmanuel, [facility] 6 12:21:01 Fibromyo sitis 91856745 Completed 201112/12/2013 STORY: DUE TO ATORVAST ATIN (TOLERAT ES SIMVASTA TIN); RECORDED 03/17/20 12 2:26PM BY MALICK HILL MA, RICK ON/ADDGLENN emmanuel, [facility] 6 12:21:01 Administ ration of bacteria l and viral vaccine Completed 200712/12/2013 RECORDED 02/01/20 08 10:14AM BY PASCUAL PUTNAM MA, OFFICE VISIT Kevin emmanuel, [facility] 6 12:21:01 Female genital organ symptoms 755756180 Completed 201212/12/2013 RECORDED 05/11/19 13 9:31AM BY MALICK HILL MA, RICK ON/DAYNE emmanuel, [facility] 6 12:21:01 Polycyst ic ovaries Completed 201112/12/2013 RECORDED 11/17/19 12 9:29AM BY RICK DOUGLAS ON/ADDEN DUM Kevin Acosta'Alessand ro null, [facility] 6 12:21:01 Eruption 882894602 Completed 201112/12/2013 IMPRESSI ON: PT WITH PROGRESS [...] DOUGLAS ON/ADDEN DUM Kevin Leiand ro null, [facility] 6 12:21:01 Sleep apnea 74184849 Completed 201112/12/2013 RECORDED 11/17/19 12 9:29AM BY RICK DOUGLAS ON/ADDEN DUM Kevin Leiand ro null, [facility] 6 12:21:01 Tobacco dependen ce syndrome 50794967 Completed 201112/12/2013 RECORDED 06/21/19 12 11:13AM BY PASCUAL PUTNAM MA, RICK ON/ADDEN DUM Kevin Lieand ro null, [facility] 6 12:21:01 Type 2 diabetes mellitus without complica tion 762696846 Completed 201112/12/2013 RECORDED 11/17/19 12 9:29AM BY RICK DOUGLAS ON/ADDEN DUM Kevin Acosta'Alessand ro null, [facility] 6 12:21:01 Uncontro lled type 2 diabetes mellitus 297712557 Completed 200812/12/2013 RECORDED 05/30/19 09 7:36AM BY PASCUAL PUTNAM MA, ANNOTATI ON/ADDEN [facility] Kevin evans null, [facility] 6 12:21:01 Urinary tract infectio us disease 01352733 Completed 201212/12/2013 STORY: CT NEG @ [facility]/N O PATHOLOG Y. F/U PRN; RECORDED 03/29/20 13 10:46AM BY EMMA SAGASTUME MA, ANNOTATI ON/ [facility] Kevin evans null, [facility] 6 12:21:01 Vaginiti s and vulvovag initis Completed 201212/12/2013 RECORDED 06/24/19 13 8:51AM BY MALICK HILL MA, [facility]I ON/ [facility] null, [facility] 7 08:55:57 Candidal vulvovag initis 21963736 Completed 200712/12/2013 RECORDED 02/01/20 08 10:12AM BY PASCUAL PUTNAM MA, ANNOTATI ON/[facility] Kevin evans null, [facility] 6 12:21:01 Acute vaginiti s 99791786 Completed 08/21/2016 Dyan emmanuel, [facility] 7 08:56:09 Vaginiti s 13227627 Completed 08/21/2016 Dyan emamnuel, [facility] 7 08:56:22 Spasm 89282547 Completed 08/21/2016 Dyan emmanuel, [facility] 7 08:56:33 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 Thalia Alvarez cholo, [facility] 8 14:05:25 Uncontro lled type 2 diabetes mellitus 374713228 Active Thalia Alvarez [facility], [facility] 8 14:05:25 Obesity 340080823 Active Thalia Alvarez cholo, [facility] 8 14:05:25 Secondar y diabetes mellitus 6293371 Completed 11/16/2017 Jeannie Metz PA-C [address], [place], [address] , [facility] 8 09:55:23 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 01623588 Active Thalia Alvarez cholo, [facility] 8 14:05:25 Major depressi ve disorder 876673868 Active Thalia Alvarez null, [facility] 8 14:05:25 Pain in pelvis 81576429 Completed 08/21/2016 Dyan emmanuel, [facility] 7 08:56:20 Leukocyt osis 791880318 Active Thalia Antonio emmanuel, [facility] 8 14:05:25 Steatosi s of liver 743508595 Active Thalia Alvarez null, [facility] 8 14:05:25 Shoulder joint pain 691235658 Completed 08/21/2016 Dyan emmanuel, [facility] 7 08:56:14 Chronic pain 12328100 Active Thalia Alvarez null, [facility] 8 14:05:25 Disorder of nervous system due to diabetes mellitus 645517250 Active Thalia Alvarez cholo, [facility] 8 14:05:25 Urinary incontin ence 577417491 Active Thalia Alvarez null, [facility] 8 14:05:25 Vaginiti s and vulvovag initis Completed 08/21/2016 Dyan emmanuel [facility] 7 08:55:57 Lateral epicondy litis 180421446 Active Thalia Alvarezana maria emmanuel, [facility] 8 14:05:25 Edema of the upper extremit y 279140877 Completed 08/21/2016 Dyan emmanuel [facility] 7 08:55:46 Insomnia disorder related to another mental disorder 53343777 Active 2017 Jeannie Metz PA-C [address] [facility] [address], [place], [address] , [facility] 8 09:59:11 Chronic kidney disease stage 1 209650131 Active 2017 Shellie emmanuel [facility] 8 14:30:22 Problem Notes None recorded. Procedures Surgical History Date Name Laterality Status Provider Name and Address Organization Details Recorded Time 018 Drain/inj joint/bursa w/o us completed Wen Irizarry [facility] 10/27/2017 14:13:15 018 Back Surgery completed Wen Irizarry [facility] 10/01/2017 15:05:30 018 Orthopedic Surgery completed Adalgisa Marlow [facility] 10/01/2017 16:12:10 018 Most Recent Mammogram completed Thalia Alvarez [facility] 08/17/2017 16:21:29 018 Mammogram Screening completed Thalia Alvarez [facility] 08/17/2017 16:21:24 018 Inj paravert f jnt c/t 1 lev completed Thalia Alvarez [facility] 07/09/2017 15:02:16 017 Cystourethroscopy completed Deb Quick [facility] 03/19/2017 15:05:02 017 Chronic Pain Assessment completed Dyan Braun MA [facility] 08/21/2016 08:56:53 012 Date of Last Pap Smear completed Jessica Gomez MA [facility] 11/22/2013 10:36:18 Tubal Ligation completed LEIF Abdullahi [address] [facility] [address], [place], [address], [place] [facility] 11/22/2013 10:57:11 Imaging Results Imaging Date Name Status LastModified by Organiz ation Details LastModified Time 09/23/2016 US, kidney completed Information not available 09/24/2016 17:51:26 01/06/2017 XR, lumbosacral spine completed [email or web address] [facility] [address] [facility] [address], [address], 01/09/2017 14:52:34 01/06/2017 XR, sacroiliac joint(s) completed [email or web address] [facility] [address] [facility] [address], [place], [address], 01/09/2017 14:52:34 08/11/2017 MAMMO, screening, bilateral completed [email or web address] [facility] [address] [place], [address], 08/17/2017 16:21:15 Procedure Notes None recorded. Medical Equipment None Reported. Allergies Allergen ID Allergen Name Allergen Category Reaction Reaction Severity Criticality Documentation Date Start Date Code Code System Note Provider Name and Address Organization Details Recorded Time 41380 Product containin g angiotens in-conver ting enzyme inhibitor (product) medicatio n cough Not available Not available 11/15/20132013 62417 009 SNOMED JEM Farfan [facility] 4 15:39:36 27883 [place] medicatio n other Not available Not available 11/15/20132013 11968 1 RxNorm JEM Farfan [facility] 4 15:39:36 08155 Cymbalta medicatio n rash severe Not available 04/13/20142013 01321 4 RxNorm ? SJS from this med ALEJANDRINA Fleming [facility] 4 10:43:02 95209 Product containin g penicilli n (product) medicatio n hives moderate Not available 09/19/2016 48723 8001 SNOMED Kevin haile [facility] 7 11:26:10 Medications Name Sig Start Date Stop Date Status Note LastModified by Organization Details LastModified Time glipizide er 10 mg tb24 1 tablet daily by mouth active Not Available Not Available No t Available olanzapin e 10 mg tabs active Not Available Not Available Not Available freestyle mis lancets active Not Available Not Available Not Available metformin hcl 500 mg tabs 2 tab in the a.m. 2 tab p.m. ny mouth active Not Available Not Available No t Available oxycodone hcl 10 mg tabs active Not Available Not Available Not Available olanzapin e 20 mg tabs 1 tablet daily by mouth at bedtime active Not Available Not Available No t Available atorvasta tin calcium 10 mg tabs active Not Available Not Available Not Available oxcarbaze pine 300 mg tabs 0.5 tab [...] SENIOR Not Available Not Available Not Available ciproflox [...] Not Available Not Available Not Available Norma Meyers 28 gauge active Not Available Not Available [...] 10:32AM BY KEVIN HAILE MD, ANNOTATI ON/DAYNE DUM; Not Available Not [...] QD active RECORDED 10/15/19 14 2:52PM BY AMLICK HILL, MA, ANNOTATI ON/ADDGLENN DUM; Not Available Not Available Not Available [...] 09 8:59AM BY KEVIN HAILE MD, ANNOTATI ON/ADDGLENN DUM;THIS ORDER DISCONTI NUED PER [facility] [employer] [facility] N. Not Available Not Available Not Available [...] completed RECORDED 02/05/20 10 11:42AM BY RICK GUERRIER/DAYNE GUZMAN;THIS ORDER DISCONTI NUED PER [facility]. Not Available Not Available Not Available [...] Not Available Not Available Not Available Pen [place] THREE TIMES DAILY 05/28 completed RECORDED 05/28/19 12 3:04PM BY RICK GUERRIER ON/ADDEN DUM; Not Available Not Available Not Available BD Insulin Syringe Ult-Fine II 1 mL 31 gauge x / active Not Available Not Available Not Available FreeStyle Noonan kit QD active Not Available Not Available [...] Not Available Not Available Not Avai lable Chantix Starting Month Box 0.5 mg (11)-1 [...] Available Not Available Not Available Fluarix Quad 2071-4937 (PF) 60 mcg (15 mcg x 4)/0.5 [...] % 98 % 89 /min 98.3 [degF] 482112. 31 g 35.9 kg/m2 119 mm[Hg] 63 mm[Hg] Jessica Gomez [facility] 7 10:23:05 Date Recorded Body height Body mass index (BMI) Body weight Heart rate Oxygen saturation Oxygen saturation in Arterial blood by Pulse oximetry Body temperature Systolic blood pressure Diastolic blood pressure Provider Name and Address Organization Details Last Updated DateTime 7 167.64 cm 35 kg/m2 70812.5 4 g 103 /min 97 % 97 % 98 [degF] 134 mm[Hg] 78 mm[Hg] Iveth Sorensen [facility] 7 14:41:13 Date Recorded Body height Body mass index (BMI) Body weight Heart rate Oxygen saturation Oxygen saturation in Arterial blood by Pulse oximetry Body temperature Systolic blood pressure Diastolic blood pressure Provider Name and Address Organization Details Last Updated DateTime 7 167.64 cm 35.2 kg/m2 22023.8 4 g 71 /min 99 % 99 % 97.1 [degF] 127 mm[Hg] 81 mm[Hg] Dyan Braun [facility] 7 09:35:08 Date Recorded Body height Body mass index (BMI) Body weight Oxygen saturation Oxygen saturation in Arterial blood by Pulse oximetry Heart rate Systolic blood pressure Diastolic blood pressure Provider Name and Address Organization Details Last Updated DateTime 8 167.64 cm 35.6 kg/m2 21837.4 2 g 97 % 97 % 85 /min 122 mm[Hg] 77 mm[Hg] Dyan Braun [facility] 8 10:02:08 Date Recorded Body height Body mass index (BMI) Body weight Body temperature Oxygen saturation Oxygen saturation in Arterial blood by Pulse oximetry Heart rate Systolic blood pressure Diastolic blood pressure Provider Name and Address Organization Details Last Updated DateTime 8 167.64 cm 35.1 kg/m2 03458.3 4 g 97.4 [degF] 96 % 96 % 85 /min 122 mm[Hg] 78 mm[Hg] Wen Edie [facility] 8 09:26:56 Social History Question Answer Notes LastModified by Organizat ion Details LastModified Time Tobacco Smoking Status Current Every Day Smoker Patient did quit, after accident she started again Emma emmanuel, [facility] 11/16/2014 12:59:47 Do You Have An Advance Directive? No Information not available 12/14/2015 What Is Your Level Of Alcohol Consumption? None [email or web address] Information not available 11/22/2013 Is Blood Transfusion Acceptable In An Emergency? Yes Information not available 11/16/2014 What Is Your Level Of Caffeine Consumption? Occasional Mostly Coffee Sometimes Soda [email or web address] Information not available 11/22/2013 How Much Tobacco Do You Chew? None [email or web address] Information not available 11/22/2013 Are You Currently [...] To Your Family Or Social Situation? No [email or web address] Information not available 11/22/2013 Are There Any Guns Present In Your Home? No [email or web address] Information not available 11/22/2013 Single Or Multi-level Home/work? Single Level Home [email or web address] Information not available 11/22/2013 Legally Blind In One Or Both Eyes? No [email or web address] Information not available 11/22/2013 Live Alone Or With Others? Alone [email or web address] Information not available 11/22/2013 Do You Take Precautions To Prevent Distracted Driving? Yes Information not available 08/03/2017 How Often Do You Need To Have Someone Help You When You Read Instructions, Pamphlets, Or Other Written Material From Your Doctor Or Pharmacy? Never Information not available 12/14/2015 Have You Served In The ? No Information not available 08/03/2017 Marital Status [email or web address] Informatio n not available 11/22/2013 What Was The Date Of Your Most Recent Tobacco Screening? 08/03/2017 Information not available 11/25/2018 How Many Children Do You Have? 2 Dtr Marialuisa And Emigdio [email or web address] Information not available 12/14/2015 Difficulty Reading? No [email or web address] Information not available 11/22/2013 Seat Belts Used Routinely Yes Information not available 11/16/2014 Smoke Alarm In Home Yes Information not available 11/22/2013 At What Age Did You Start Smoking Tobacco? 16 Information not available 11/16/2014 Are You Passively Exposed To Smoke? No [email or web address] Information not available 11/22/2013 How Much Tobacco Do You Smoke? 1 PPD Information not available 11/16/2014 General Stress Level High Information not available 11/22/2013 Do You Use Any Illicit Or Recreational Drugs? No [email or web address] Information not available 11/22/2013 Do You Use Sunscreen Routinely? No Information not available 11/16/2014 How Many Years Have You Smoked Tobacco? 20 Information not available 11/22/2013 Difficulty Watching TV? No [email or web address] Information not available 11/22/2013 Sex: Unknown Functional Status Question Answer Note LastModified by Organizat ion Details LastModified Time Do you have difficulty walking or climbing stairs? Yes Information not available 11/22/2013 Difficulty [address] at night? No [email or web address] Information not available 11/22/2013 Do you have difficulty doing errands alone? No [email or web address] Information not available 11/22/2013 Are you able to care for yourself? Yes Marialuisa is proxy Information not available 12/14/2015 Do you have difficulty dressing or bathing? No [email or web address] Information not available 11/22/2013 What is your exercise level? None Information not available 11/16/2014 Mental Status Question Answer Note LastModified by Organization D etails LastModified Time Do you have difficulty concentrating, remembering or making decisions? No [email or web address] Information no t available 11/22/2013 Family History [...] COPD N Lung Disease N Hypothyroidism N Developmental or Behavioral Disorders N Defects [...] Disease N Pulmonary Embolism N Hypertension Y Osteoporosis N Chicken Pox N Autism Spectrum Disorder (ASD) N Gynecological History Statement/Question Response Date of Last Pap Smear 03/17/2012 Most Recent Mammogram 08/11/2017 Obstetrics History GPAL:G 0 P 0 0 0 0 Immunizations Vaccine Type Date Status Note Provider Nam e and Address Organization Details Recorded Time Influenza, split virus, trivalent, PF 5 completed Thalia emmanuel [facility] 08/11/2017 14:05:20 pneumococcal polysaccharide PPV23 4 completed Thalia Alvarez null, [facility] 08/11/2017 14:05:20 Influenza, split virus, trivalent, preservative 6 completed Thalia Alvarez null, [facility] 08/11/2017 14:05:20 Tdap 8 completed Thalia Alvarez null, [facility] 08/11/2017 14:05:20 Influenza, split virus, quadrivalent, PF 7 completed Not Available [facility] 05/21/2019 02:22:13 pneumococcal polysaccharide PPV23 7 completed Thalia Alvarez null, [facility] 08/11/2017 14:05:20 Influenza, split virus, trivalent, preservative 8 completed Thalia Alvarez null, [facility] 08/11/2017 14:05:20 Influenza, split virus, trivalent, preservative 8 completed Thalia Alvarez null, [facility] 08/11/2017 14:05:20 Tdap 8 completed Thalia Alvarez null, [facility] 08/11/2017 14:05:20 Influenza, split virus, trivalent, preservative 0 completed Thalia Alvarez null, [facility] 08/11/2017 14:05:20 Influenza, split virus, trivalent, preservative 2 completed Thalia Alvarez null, [facility] 08/11/2017 14:05:20 Influenza, split virus, trivalent, preservative 3 completed Thalia Alvarez null, [facility] 08/11/2017 14:05:20 Past Encounters Encounter ID Performer Location Encounter Start Date Encounter Closed Date Diagnosis/Indication Diagnosis SNOMED-CT Code Diagnosis ICD10 Code Diagnosis Note [id number] Main Office [address] [place] [address] 11/22/2013 09:54:55 11/22/2013 11:27:21 Adult health examination [id number] Diabetes mellitus 99926232 Low back pain 853037643 Essential hypertension 83877922 Hyperlipidemia 92387810 Gastroesop hageal reflux disease 081138128 [id number] autoEComm erce [address] [place],[address] [place] [address] 04/23/2010 00:00:00 [id number] autoEComm erce [address] [facility],[address] [place] [address] 04/23/2010 00:00:00 [id number] autoEComm erce [address] [facility],[address] [place] [address] 04/23/2010 00:00:00 [id number] autoEComm erce [address] [facility],[address] [place] [address] 09/27/2010 00:00:00 [id number] autoEComm erce [address] [facility],[address] [place] [address] 10/22/2010 00:00:00 [id number] autoEComm erce [address] [facility],[address] [place] [address] 10/22/2010 00:00:00 [id number] autoEComm erce [address] [facility],[address] [place] [address] 04/29/2011 00:00:00 [id number] autoEComm erce [address] [facility],[address] [place] [address] 04/29/2011 00:00:00 [id number] autoEComm erce [address] [facility],[address] [place] [address] 06/21/2011 00:00:00 [id number] autoEComm erce [address] [facility],[address] [place] [address] 08/27/2011 00:00:00 [id number] autoEComm erce [address] [facility],[address] [place] [address] 08/27/2011 00:00:00 [id number] autoEComm erce [address] [facility],[address] [place] [address] 10/28/2011 00:00:00 [id number] autoEComm erce [address] [place] [address] 10/28/2011 00:00:00 [id number] autoEComm erce [address] [place] [address] 10/28/2011 00:00:00 [id number] autoEComm erce [address] [place] [address] 10/28/2011 00:00:00 [id number] autoEComm erce [address] [place] [address] 11/01/2011 00:00:00 [id number] autoEComm erce [address] [place] [address] 11/01/2011 00:00:00 [id number] autoEComm erce [address] [place] [address] 11/01/2011 00:00:00 [id number] autoEComm erce [address] [facility] [address] [place] [address] 11/01/2011 00:00:00 [id number] autoEComm erce [address] [facility] [address] [place] [address] 11/17/2011 00:00:00 [id number] autoEComm erce [address] [place] [address] 11/17/2011 00:00:00 [id number] autoEComm erce [address] [facility] [address] [place] [address] 11/17/2011 00:00:00 [id number] autoEComm erce [address] [facility] [address] [place] [address] 11/17/2011 00:00:00 [id number] autoEComm erce [address] [facility],[address] [place] [address] 03/17/2012 00:00:00 [id number] autoEComm erce [address] [place] [address] 03/17/2012 00:00:00 [id number] autoEComm erce [address] [place] [address] 03/17/2012 00:00:00 [id number] autoEComm erce [address] [place] [address] 05/11/2012 00:00:00 [id number] autoEComm erce [address] [place] [address] 06/24/2012 00:00:00 [id number] autoEComm erce [address] [place] [address] 06/24/2012 00:00:00 [id number] autoEComm erce [address] [facility] [address] [place] [address] 06/24/2012 00:00:00 [id number] autoEComm erce [address] [facility] [address] [place] [address] 07/24/2012 00:00:00 [id number] autoEComm erce [address] [place] [address] 07/24/2012 00:00:00 [id number] autoEComm erce [address] [facility] [address] [place] [address] 07/24/2012 00:00:00 [id number] autoEComm erce [address] [place] [address] 07/24/2012 00:00:00 [id number] autoEComm erce [address] [place] [address] 11/09/2012 00:00:00 [id number] autoEComm erce [address] [place] [address] 11/09/2012 00:00:00 [id number] autoEComm erce [address] [place] [address] 03/29/2013 00:00:00 [id number] autoEComm erce [address] [place] [address] 03/29/2013 00:00:00 [id number] autoEComm erce [address] [place] [address] 03/29/2013 00:00:00 [id number] autoEComm erce [address] [place] [address] 05/31/2013 00:00:00 [id number] autoEComm erce [address] [place] [address] 05/31/2013 00:00:00 [id number] autoEComm erce [address] [place] [address] 05/31/2013 00:00:00 [id number] autoEComm erce [address] [place] [address] 05/31/2013 00:00:00 [id number] autoEComm erce [address] [place] [address] 10/10/2013 00:00:00 [id number] autoEComm erce [address] [place] [address] 10/10/2013 00:00:00 [id number] autoEComm erce [address] [place] [address] 10/10/2013 00:00:00 [id number] autoEComm erce [address] [place] [address] 10/10/2013 00:00:00 [id number] autoEComm erce [address] [place] [address] 11/15/2013 00:00:00 [id number] autoEComm erce [address] [place] [address] 11/15/2013 00:00:00 [id number] autoEComm erce [address] [place] [address] 11/15/2013 00:00:00 [id number] autoEComm erce [address] [place] [address] 11/15/2013 00:00:00 [id number] autoEComm erce [address] [facility] [address] [place] [address] 12/01/2006 00:00:00 [id number] autoEComm erce [address] [place] [address] 12/01/2006 00:00:00 [id number] autoEComm erce [address] [facility] [address] [place] [address] 12/01/2006 00:00:00 [id number] autoEComm erce [address] [facility],[address] [place] [address] 12/15/2006 00:00:00 [id number] autoEComm erce [address] [facility],[address] [place] [address] 05/06/2007 00:00:00 [id number] autoEComm erce [address] [facility] [address] [place] [address] 05/06/2007 00:00:00 [id number] autoEComm erce [address] [facility],[address] [place] [address] 08/05/2007 00:00:00 [id number] autoEComm erce [address] [facility] [address] [place] [address] 08/05/2007 00:00:00 [id number] autoEComm erce [address] [facility] [address] [place] [address] 08/05/2007 00:00:00 [id number] autoEComm erce [address] [facility],[address] [place] [address] 11/02/2007 00:00:00 [id number] autoEComm erce [address] [place] [address] 11/19/2007 00:00:00 [id number] autoEComm erce [address] [place] [address] 11/19/2007 00:00:00 [id number] autoEComm erce [address] [place] [address] 11/19/2007 00:00:00 [id number] autoEComm erce [address] [place] [address] 11/19/2007 00:00:00 [id number] autoEComm erce [address] [facility] [address] [place] [address] 12/03/2007 00:00:00 [id number] autoEComm erce [address] [facility] [address] [place] [address] 12/03/2007 00:00:00 [id number] autoEComm erce [address] [facility] [address] [place] [address] 12/03/2007 00:00:00 [id number] autoEComm erce [address] [facility],[address] [place] [address] 12/03/2007 00:00:00 [id number] autoEComm erce [address] [facility] [address] [place] [address] 01/28/2008 00:00:00 [id number] autoEComm erce [address] [facility],[address] [place] [address] 01/28/2008 00:00:00 [id number] autoEComm erce [address] [facility],[address] [place] [address] 01/28/2008 00:00:00 [id number] autoEComm erce [address] [facility] [address] [place] [address] 02/01/2008 00:00:00 [id number] autoEComm erce [address] [facility],[address] [place] [address] 05/30/2008 00:00:00 [id number] autoEComm erce [address] [place] [address] 05/30/2008 00:00:00 [id number] autoEComm erce [address] [place] [address] 05/30/2008 00:00:00 [id number] autoEComm erce [address] [place] [address] 2 05/30/2008 00:00:00 [id number] autoEComm erce [address] [place] [address] 08/29/2008 00:00:00 [id number] autoEComm erce [address] [place] [address] 08/29/2008 00:00:00 [id number] autoEComm erce [address] [facility],[address] [place] [address] 08/29/2008 00:00:00 [id number] autoEComm erce [address] [facility],[address] [place] [address] 08/29/2008 00:00:00 [id number] autoEComm erce [address] [facility] [address] [place] [address] 03/20/2009 00:00:00 [id number] autoEComm erce [address] [facility],[address] [place] [address] 03/20/2009 00:00:00 [id number] autoEComm erce [address] [facility] [address] [place] [address] 03/20/2009 00:00:00 [id number] autoEComm erce [address] [facility] [address] [place] [address] 03/20/2009 00:00:00 [id number] autoEComm erce [address] [facility],[address] [place] [address] 07/11/2009 00:00:00 [id number] autoEComm erce [address] [place] [address] 07/11/2009 00:00:00 [id number] autoEComm erce [address] [facility],[address] [place] [address] 07/11/2009 00:00:00 [id number] autoEComm erce [address] [facility],[address] [place] [address] 12/18/2009 00:00:00 [id number] Aleida aVn RN Main Office [address] [facility] [address] [place] [address] 02/24/2014 15:25:31 02/24/2014 16:22:20 Diabetes mellitus 94483148 Urine shows 3+ glucose but neg ketones. FSBS 364. Discussed with Dr. Patel. Will administer 6 units humalog insulin in the office. PatieNt will check her sugar when she gets home and she will ensure she is drinking lots of fluids, decreasing carb intake and taking her meds as prescribed . F/i with Dr. Muse as scheuled on 03/02/14. Essential hypertension 01446363 [id number] Dyan Braun [place] Main Office [address] [address] [place] [address] 04/19/2014 12:44:50 04/19/2014 13:33:59 Acute vaginitis 54082669 Vaginitis, on flagyl and levaquin improved, no residual rash at this time. 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 Follow-up encounter 239943358 Essential hypertension 92537931 Diabetes mellitus 67788333 Has been seeing Dr. Muse , has f/u scheduled in July, she states her DM meds were changed in the hospital and her sugars have been higher than normal, she will call Dr. Muse 's office to ask about meds and inform of sugars. [id number] [facility] Main Office [address] [facility] [address] [place] [address] 05/29/2014 11:23:28 05/29/2014 12:09:24 Essential hypertension 38209581 Obesity 002922296 Renal diso rder due to type 2 diabetes mellitus 981739465 Degenerati on of lumbosacral intervertebral disc 02699420 Hyperlipidemia 87782435 [id number] Kevin Henry Main Office [address] [address] [place] [address] 11/16/2014 12:38:15 11/16/2014 13:41:48 Adult health examination 283416439 Major depr essive disorder 068446042 I offered pt support/ she can contract for safety and has numerous supports. Phone call placed/mes ernie left to [facility]ist Vanessa/ I will d/w therapist the new issue for pt of fibromyalg ia and worsening depression and make a plan w/ mental health staff Renal diso rder due to type [address] Vincent Caro manages Essential hypertension 18830055 [id number] [facility] Main Office [address] [address] [place] [address] 03/20/2015 15:28:47 03/20/2015 16:09:41 Pain in pelvis 77842893 R10.2 Pain is resolving. Pt. is advised to take Motrin 200 mg 2 po BID for few days with food. Recheck CBC due to mild leukocytos is. All testing in the ER was unremarkab le. Leukocytosis 821667201 D 72.829 Steatosis of liver 91362 1007 K76.0 Liver steatosis linked to uncontrole d DM and obesity. Pt. was recommende d to loose weight via low gertrude diet and daily exercise activity. [id number] [facility] Main Office [address] [address] [place] [address] 05/24/2015 13:00:22 05/24/2015 14:12:21 Degeneration of lumbosacral intervertebral disc 34905793 M51.37 Shoulder joint pain 2679 13743 M25.512 Chronic pain 12986414 G8 9.29 I had a discussion w/ pt re risks of opiates. Pt agrees and is aware of risks of opiates. I agree w/ use of steroids despite the effects on blood sugars Major depr essive disorder 860270606 F32.9 I offered pt support/ she can contract for safety and has numerous supports. Phone call placed/mes ernie left to [facility] Vanessa/ I will d/w therapist the new issue for pt of fibromyalg ia and worsening depression and make a plan w/ mental health staff Renal diso rder due to type 2 diabetes mellitus 553941891 E11.29 Dr Vincent Caro manages [id number] Kevin evans Main Office [address] [address] [place] [address] 07/03/2015 08:40:32 07/03/2015 09:28:06 Constipation 78638718 K59.00 pt using fiber and fluids and colace prn Chronic pain 13048278 G8 9. I had a discussion w/ pt re risks of opiates. Pt agrees and is aware of risks of opiates. I agree w/ use of steroids despite the effects on blood sugars 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 202931595 E11.40 Urinary incontinence 165 011279 R32 Vaginitis and vulvovaginitis 539255974 N76.0 [id number] Kevin evans Main Office [address] [address] [place] [address] 08/23/2015 10:36:51 08/23/2015 12:02:34 Lateral epicondylitis 552257043 M77.11 [id number] Gabriele Patel MD Main Office [address] [address] [place] [address] 09/15/2015 10:33:07 09/15/2015 11:53:40 Dysuria 81307094 R30.0 Will treat for more complicate d cystitis based on comorbidit es and recurrent infections . WIll modify or possibly d/c abx depending on culture results. Pt advised to call with persistent or worsening symptoms or with any medication problems. Renal diso rder due to type 2 diabetes mellitus 977410418 E11.22 [id number] Kevin evans Main Office [address] [address] [place] [address] 11/06/2015 11:15:55 11/06/2015 12:11:54 Edema of the upper extremity 989333412 R60.0 we will get labs from Endo and pt may need to see nephrology . she will take ONLY irbesartan and will wean down on gabapentin dose Major depr essive disorder 513149155 F33.9 I offered pt support/ she can contract for safety and has numerous supports. Phone call placed/anayeli klein left to [facility] , Vanessa Samano/ I will d/w therapist the new issue for pt of fibromyalg ia and worsening depression and make a plan w/ mental health staff Essential hypertension 55639729 I10 Chronic pain 32652510 G8 929 I had a discussion w/ pt re risks of opiates. Pt agrees and is aware of risks of opiates. I agree w/ use of steroids despite the effects on blood sugars [id number] Kevin evans Main Office [address] [address] 12/14/2015 13:25:51 12/14/2015 14:48:40 Adult health examination 293526694 Z00.00 Renal diso rder due to type 2 diabetes mellitus 740892909 E11.[address] Vincent Caro manages Degenerati on of lumbosacral intervertebral disc 08185873 M51.37 Chronic pain 50939650 G8 929 I had a discussion w/ pt re risks of opiates. Pt agrees and is aware of risks of opiates. I agree w/ use of steroids despite the effects on blood sugars Major depr essive disorder 632082365 F33.9 I offered pt support/ she can contract for safety and has numerous supports. Phone call placed/anayeli klein left to [facility] , Vanessa Samano/ I will d/w therapist the new issue for pt of fibromyalg ia and worsening depression and make a plan w/ mental health staff [id number] Kevin evans Main Office [address] [address] 05/16/2016 14:15:45 05/16/2016 15:50:32 Neck pain 23625776 M54.2 chronic, ongoing issue for patient, she had MRI, result has been requested, she states it showed multilevel arthritis and nerve impingemen t. She states she is in severe pain, she admits to taking a 10 mg oxycodone earlier that she got from her sister, though she states it is not helping. Case discussed with Dr. Marky evans, he was in to speak with patient. We will add robaxin, no narcotics, heat/ ice as needed. Major depr essive disorder 100432228 F32.9 Hx MDD, and she states she did threaten SI at one point due to fear of having meds discontinu ed. She was dismissed from [facility] due to this and is awaiting Pain management appt. [id number] Shellie Chapman Main Office [address] [facility] [address] [place] [address] 08/21/2016 08:46:41 08/21/2016 09:49:52 Chronic pain 65398012 G89.29 I had a discussion w/ pt re risks of opiates. Pt agrees and is aware of risks of opiates. I agree w/ use of steroids despite the effects on blood sugars Chronic ki dney disease stage 1 238291176 N18.1 Renal diso rder due to type 2 diabetes mellitus 610432928 E11.22 Dr Vincent Caro manages Hyperlipidemia 89148502 E78.5 Tobacco de pendence syndrome 84906184 F17.290 Chronic pain syndrome 37 1074630 G89.4 Hypertensi ve renal disease 94630028 I12.9 [id number] Kevin evans Main Office [address] [facility] [address] [place] [address] 09/19/2016 10:36:47 09/19/2016 11:34:36 Dysuria 06983548 R30.0 SYMPTOMS: burning with urination? {{yes* no} } frequency? {{yes* no} } hematuria? {{yes no*} } lower abdominal pain? {{yes* no} } symptoms similar to previous UTI? {{yes* no NA}} POSSIBLE CONTRAINDI CATIONS TO TELEPHONE TREATMENT: > 65 years of age? {{yes no*} } fevers? {{yes no*} } recent UTI (within 1 month)? {{yes no*} } new low back pain? {{yes no*} } nausea or vomiting? {{yes no*} } ? {{yes no*} } history of interstiti al cystitis? {{yes no*} } PROVIDER ACTION: Reviewed nursing notes? {{yes* no} } Recommende d action {{appropri ate for telephone treatment* needs appointmen t must drop off urine for culture}} Antibiotic treatment {{Bactrim DS x 3 days Bactr im DS x 7 days Macro bid x 7 days* Cipr o x 3 days Cipro x 7days anot her medication (provider will prescribe) NA}} [id number] Kevin Henry nathan Main Office [address] [address] [place] [address] 09/26/2016 16:26:36 09/26/2016 17:08:20 [id number] Kevin Henry nathan Main Office [address] [address] [place] [address] 09/30/2016 10:13:28 09/30/2016 10:53:18 Urinary tract infectious disease 39443492 N39.0 resolved, took full course of abx Urinary incontinence 165 260562 R32 seeing urogyn today at 2:40 in follow-up and for eval of incontinen ce Uncontroll ed type 2 diabetes mellitus 506199455 E11.65 Seeing endocrinol PAIGE love 277 this am, continue meds as directed. Essential hypertension 53463601 I10 BP well controlled , continue emds as directed Acute vaginitis 56990996 N76.0 recently on 3 abx, feels may be getting a yeast infection, has a script for fluconazol e, will fill as needed. [id number] Kevin Leikrista evans Main Office [address] [address] [place] [address] 01/06/2017 14:04:42 01/06/2017 15:24:15 Lumbar radiculopathy 353578803 M54.16 Heat 4 times daily x 20 mins at a time, XRs today, meloxicam once daily as directed with food, methocarba mol TID as needed, tylenol #3 for 3 days only as needed. No driving or alcohol with meds. Gentle stretching as tolerated, may need PT and referral if sx persist. [id number] Kevin Leikrista evans Main Office [address] [address] [place] [phone] 02/19/2017 09:25:09 02/19/2017 10:09:46 Needs influenza immunization 816622234 Z23 Urinary incontinence 165 [id number] R32 [id number] Kevin Leikrista evans Main Office [address] [address] [place] [phone] 08/03/2017 09:45:53 08/03/2017 10:34:19 Adult health examination 761397127 Z00.00 Screening for malignant neoplasm of breast 929437988 Z12.39 Screening for malignant neoplasm of cervix 942785822 Z12.4 Administra tion of viral vaccine 48536359 Z23 Eczema 44461565 L30.9 Uncontroll ed type 2 diabetes mellitus 489668776 E11.65 Major depr essive disorder 978107238 F33.9 pt feels safe and is stable w/ mental health support [id number] Main Office [address] [facility] [address] [place] [phone] 11/16/2017 08:53:08 11/16/2017 10:19:36 Uncontrolled type 2 diabetes mellitus [id number] E11.65 Diabetes slowly improving but not at goal. Recommend to see endo every [address] Will repeat all labs fasting. Pt. will f/u with endo as scheduled and with nutrionist . Renal diso rder due to type 2 diabetes mellitus 269774974 E11.22 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 876971924 E11.49 stale neuropathy on Lyrica. RX written by pain management ( [facility]). Hyperlipidemia 39998047 E78.00 Continue current meds and low fat diet. Repeat fasting lipids. Essential hypertension 63702429 I10 Stable HTN> Continue current meds and repeat labs as recommende d. Major depr essive disorder 922283190 F32.9 F/u with psych continue current meds. 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 Tobacco user 412765302 Z 72.0 Body mass index 30+ - obesity 512462697 E66.01 Z68.35 Chronic ki dney disease stage 1 [id number] N18.1 Health Concerns Section Related Observation LastModified by Organization Detai ls LastModified Time None Recorded Concern Status LastModified by Organization Details LastModified Time None Recorded Advance Directives Directive N: Payers Encounter Date Sequence Insurance Name Policy Number Policy Cordero Covered Member ID Cordero Member ID Guarantor Name 09/30/2016 1 [place] [employer] Estefania Buck [id number] Estefania Buck 09/30/2016 2 [place] [employer] Estefania QuickPal murphyz [id number] Estefania Buck 01/06/2017 1 [place] [employer] Mabeline Quick Buck [id number] Mabeline Quick Buck 01/06/2017 2 [place] Mabeline Quick-Pal obinna [id number] Mabeline Quick Buck 02/19/2017 1 [place] [employer] Mabeline Quick Buck [id number] Mabeline Quick Buck 02/19/2017 2 [place] [facility] Mabeline Quick-Pal obinna [id number] Mabeline Quick Buck 08/03/2017 1 [place] [employer] Mabeline Quick Buck [id number] Mabeline Quick Buck 08/03/2017 2 [place] [facility] Mabeline Quick-Pal obinna [id number] Mabeline Quick Buck 11/16/2017 1 [place]: [employer] Mabeline Quick Buck [id number] Mabeline Quick Buck 11/16/2017 2 [place] [facility] Nicolaseline Quick-Pal obinna [id number] Nicolaseline Quick Buck Notes Date Note Type Note Provider Name and Address Organization Details Recorded Time 09/30/2016 text/html Hospitalization Contact RecordReported bypatient.[facility] UpH[facility]; admit date: (Please enter in format 'MM/DD/YYYY') [...] has resolved. glipizide was increased. [facility] 09/30/2016 17:31:32 01/06/2017 text/html Generic HPI TemplateReported bypatient.Notes:left hip/ buttock pain that radiates down leg into toes with numbness and tingling. She feels pain is severe and was going to go to ED. She notes she has had back pain with a UTI before, her urine is yellow but bubbly appearing. She does have DM and endocrine is sending her to [place] for a test as she cannot take insulin. Kevin [facility] 01/06/2017 16:37:31 02/19/2017 text/html Urinary FrequencyReported bypatient.Quality:symp toms worse during the day Severity:moderate Alleviating Factors:nothing gives relief; pt notes urinary incontinence. pt has leakage Aggravating Factors:tobacco use; pt quit smoking last year Associated Symptoms:no abdominal pain; no diarrhea; no hesitancy; no vomiting; pt has urine odor when she has UTI/ pt plans for bladder botox. see plan Kevin [facility] 02/19/2017 09:59:55 08/03/2017 text/html Medicare Annual Wellness [...] seatbelts; good lighting in the home [facility] 10:31:16 11/16/2017 text/html 52 year old fema le for f/u. PT. 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 Sees endo at [facility] and is currently on V-Go pump and CGM with [employer]. A!c today is improved at 10.0% from 11.3% on last visit with endo . PT. has almaz for f/u. PT. has neuropathy. 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 Overdue for diabetic eye exam. REports no vision changes.Major depression. Sees psych and counselor in [place]. On Citalopram 20 mg and Zolpidem for insomnia from them.Chronic pain and neuropathy. WAS ON Lyrica , but discontinued in May.HTN is stable on meds. PT. is overdue for labs.Hyperlipidemia. ON atorvastatin 10 mg. Overdue for labs.TObacco user. 12 or 13 cigarettes per day. STopped in the past with CHantix. Wants to try again. Shellie [facility] 11/16/2017 14:31:49 OBGyn Episode No OBEpisode recorded.
== END 2024-06-29 11:53 | disposition home or self-care (01) ==
PROVIDERS: PCP Family Medicine; Visit Provider Orthopaedic Surgery
DX: M17.11 Unilateral primary osteoarthritis, right knee (principal)
CPT/HCPCS: 99024

== ENCOUNTER → 2024-06-29 10:56 | Outpatient (BNVA) | payer OTHER, SELFPAY | PROVIDERS: PCP Family Medicine; Visit Provider Orthopaedic Surgery | DX: M17.11 Unilateral primary osteoarthritis, right knee (principal) | CPT/HCPCS: 99212 ==

== ENCOUNTER 2024-08-25 14:30 | Outpatient (AMB) | payer OTHER, SELFPAY ==
--- NOTE | 2024-08-25 14:41 | MHC.OFFVIS ---
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 Accompanied by: Self / Same As Patient Allergies amoxicillin [AMOXICILLIN] Allergy (Severe, Verified 08/25/24 14:58) ANAPHYLAXIS exenatide [From BYETTA] Allergy (Severe, Verified 08/25/24 14:58) ANAPHYLAXIS insulin detemir [From LEVEMIR U-100 INSULIN] Allergy (Severe, Verified 08/25/24 14:58) SORE THROAT insulin glargine [From LANTUS U-100 INSULIN] Allergy (Severe, Verified 08/25/24 14:58) YEAST INFECTION insulin glulisine [From APIDRA U-100 INSULIN] Allergy (Severe, Verified 08/25/24 14:58) UNKNOWN insulin regular [From NOVOLIN R REGULAR U-100 INSULN] Allergy (Severe, Verified 08/25/24 14:58) MUSCLE PAIN lisinopril Allergy (Severe, Verified 08/25/24 14:58) Cough penicillin V Allergy (Severe, Verified 08/25/24 14:58) Rash pioglitazone [From ACTOS] Allergy (Severe, Verified 08/25/24 14:58) HIVES insulin isophane (NPH) [From HUMULIN N NPH U-100 INSULIN] Allergy (Intermediate, Verified 08/25/24 14:58) YEAST INFECTION duloxetine [From CYMBALTA] Allergy (Unknown, Verified 08/25/24 14:58) UNKNOWN tizanidine Adverse Reaction (Severe, Verified 08/25/24 14:58) Anxiety HPI Comments Details: Patient presents for pplication of capsaicin 8% topical patch for diabetic neuropathy in bilateral feet. This treatment was paused for a trial period during which her symptoms were noted to exacerbate, particularly affecting her pain levels at night. In addition to foot pain, the patient describes significant and severe pain in her hands, markedly affecting functionality and notably associated with non tender inability to bend her right ring finger. Despite ongoing use of gabapentin, the pain severely disrupts her sleep, requiring additional relaxation medication. Pending surgery on her hands has been recommended but remains unperformed at present, with an orthopedic evaluation anticipated next week at [facility]. She has a documented history of uncontrolled diabetes, as demonstrated by previous high glucose readings and over 71% of the past 90 days? values exceeding a glucose level of 250 mg/dL but better for the past 7 days per Dexicomp log reports. Patient experiences better symptom management with a higher oxycodone dosage previously administered in the [facility] hospital (10 mg) as opposed to lower doses (5 mg) which result in significant itching. She is currently out of pain medication and has tried splitting doses to manage severe pain. Denies any recent cough, cold, infection, fever or any other significant changes in medical history since last office visit. Denies any changes to medications, medical history or recent hospitalizations. PRIOR: Patient presents today to assess response to Bilateral Diagnostic SIJ injections on 03/08/[address] Ramirez. Patient reports 100% ongoing pain relief since procedure with significant improvement in her mobility, changing positions, prolonged sitting or standing. She denies any low back, hip or buttock pain today. Her A1C remains elevated above 11 last week per patient. Her Dexicom shows 142 and she last ate about 1 hour ago. Patient reports allergies to most forms of insulin. She interested in Weight Management for surgical evaluation. Patient also reports bilateral hand pain with weakness, numbness and tingling and stiffness in her 2-3 rd fingers bilaterally. She reports prevous CTS release surgery about 4-5 years ago at [facility] and requests Hand Specialist referral at [facility]. Patient also suffers from right knee pain due to degenerative changes and a tear of the medial meniscus. She is being scheduled for right knee diagnostic arthroscopy with arthroscopic partial medial meniscectomy and possible partial lateral meniscectomy with Dr. Buitrago. Hand and right knee pain are rated at 8/10 with daily activities, walking or climbing stairs. Denies any recent cough, cold, infection, fever, bladder or bowel dysfunction, saddle anesthesa or any other significant changes in medical history since last office visit. Past Procedures: 03/08/24: Bilateral Diagnostic SIJ injections-100% ongoing pain relief >1 week 11/13/23: Bilateral L3-L4-L5 MB RFA-75% ongoing pain relief 08/11/23: Diagnostic Bilateral L3-L4 DR L5 MBB-80-85% pain relief for 12 hours 08/10/23: 3rd Qutenza application for DPN 06/30/23: Diagnostic Bilateral L3-L4 DR L5 MBB-80% pain relief for 6.5 hours, ongoing 70% pain relief 05/15/23: 2nd Qutenza application for DPN 02/12/23: 1st Qutenza application for DPN PRIOR: Patient is a 57 year old female with prior history of chronic low back pain, pinched nerve L5, lumbar DDD, MARIAM, uncontrolled DM, PAD, peripheral neuropathy, anxiety, depression and former smoker, presents today for evaluation of low back pain with right sided radiculopathy. Patient was followed in the past by [facility] for low back pain and received multiple back injections with good results. She attributes her most recent radicular symptoms due to a mechanical fall in October. She accidentally hit a chair with her walker and fell onto her right side. Reports pain in her lower back pain with radiation into her right buttock, lateral hip and down to the lower leg posteriorly and laterally with cramping in her right calf, numbness and burning pain in both feet. Denies any bladder or bowel dysfunction or saddle anesthesia. Patient reports bilateral lower extremity weakness, uses cane with ambulation. Recent lumbar spine MRI is noted below. Patient is not candidate for therapeutic spine injections due to elevated A1C, nor does she want to be evaluated by Neurosurgery as she is not interested in back surgery. Reports history of overdose on oxycodone-acetaminophen due to forgetfulness and taking double dose, which required hospitalization per patient in 2016. She sees mental therapist for anxiety and depression. Reports she quit smoking on 01/14/23 and takes Nicotine lozenges for craving. Reports increased snacking and eating since quitting. 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 Receives daily CAP[employer] LEAD services. Current blood sugar per Dexicomp reads 184. Patient reports most recent A1C was over 10. She follows Dr. Medina Muse at [facility]. Reports right great toenail removed in 2019. Patient requests referral to Podiatry provider as she has not seen one in several years. Location Back pain radiates down right leg posteriorly Duration Chronic pain for many years, progressively worsening Characteristics of symptom or complaint Aching, burning, shooting, stabbing, numbness Aggravating or associated factors Walking, sitting, climbing and descending stairs, movements, weather change Relieving factors Tylenol, Percocet, morphine, gabapentin Treatment PT- increased pain, injections- [facility]-good relief PFSH Medical History Tennis elbow MARIAM (obstructive sleep apnea) Vitamin D deficiency Familial hirsutism Hyperlipidemia Microalbuminuria Hypertension Depression Anxiety Hypercholesterolemia Type 2 diabetes mellitus with peripheral neuropathy Lumbar radiculopathy Right leg pain Surgical History Previous back surgery History of carpal tunnel release Hx of tubal ligation Family History Mother Hypertension Diabetes Father Hypertension Social History Household Members Other:: lives only, but has a CAPABILITY LEAD daily Are you a primary senior care specialist to a significant other at home: No Do you presently have visiting nurse or other home services: No Alcohol intake: never Patient Tobacco Use Status: Former Tobacco user Tobacco use type: Cigarette Years Smoked: 40 Review of Systems Const All systems reviewed & are unremarkable except as noted in HPI and below Physical Exam Vital Signs: Last Vital Signs Pulse 100 08/25/24 14:57 BP 148/74 H 08/25/24 14:57 Pulse Ox 97 08/25/24 14:57 Oxygen Delivery Method Room Air 08/25/24 14:57 BMI result Body Mass Index 39.1 General: Appears afebrile. Alert and oriented. Mood and affect appropriate. Follows and participates in conversation appropriately. Respiratory effort is unlabored. No cough. Able to transition from sit to stand unassisted. Uses cane with ambulation. Ambulates with bilaterally normal heel strike and toe off. Extrem Other: Bilateral hand: normal to inspection, limited ROM 2-3rd fingers bilaterally. +Tinels and +Phalen's tests bilaterally. Reports gradually worsening pain throughout the day, worse at night. Reports numbness, tingling, burning and paresthesias both hands. Well healed incision from previous CTS surgery. General: Yes capillary refill normal and Yes no calf tenderness Right lower extremity: knee (Limited ROM due to pain.) Details: tenderness Location: of the medial joint line and of the lateral joint line and crepitus; no ecchymosis and no unusual warmth Office Procedures Topical Capsaicin Date(s) of prior application(s): See EMR for previous applications Date 1:: 08/25/24 Laterality: Bilateral Location of left foot pain: Anterior, Posterior, Plantar, Dorsal, Medial, Lateral and Distal Location of right foot pain: Anterior, Posterior, Plantar, Dorsal, Medial, Lateral and Distal Quality of pain: Aching, Burning, Numb-like, Tiring and Penetrating Details:: Two patches, 560 cm2 were utilized per each foot. EMLA Cream (lidocaine 2.5% and prilocaine 2.5%) was not applied at home by patient prior to application of the patches. Patient elected to proceed with the procedure without EMLA cream. The patient tolerated the procedure well. Patient?s vitals signs remained stable throughout the procedure. Patient was able to complete the stipulated 35 minutes of the therapeutic application without any discomfort. Office Meds capsaicin-skin cleanser 8 % topical kit Performing Provider: GABRIELA Goel Performing Location: [facility] Administered by: GABRIELA Goel on 08/25/24 14:50 Dose Route Admin Location Dispensed Lot Number Expiration Date NDC Marketing Director [facility] 4 ea topical [facility] 4 ea [id number] 12/02/25 [id number] [employer] Results Reviewed Results Reviewed: XR HAND LEFT; XR HAND RIGHT 04/22/24 CLINICAL INFORMATION: Pain in left hand M79.642. Pain in right hand M79.641. FINDINGS: Left hand: No acute fractures. Bony mineralization is unremarkable. Joint spaces are well-maintained. Mild dorsal soft tissue swelling. Right hand: No acute fractures. Bony mineralization is unremarkable. The joint spaces well-maintained IMPRESSION: No acute process. Mild dorsal soft tissue swelling in the left hand. Assessment & Plan Assessment & Plan (1) Chronic painful diabetic neuropathy: Code(s): E11.40 - Type 2 diabetes mellitus with diabetic neuropathy, unspecified Category: Medical (2) Chronic painful diabetic neuropathy: Code(s): E11.40 - Type 2 diabetes mellitus with diabetic neuropathy, unspecified (3) History of carpal tunnel release: Comment: bilateral Code(s): Z98.890 - Other specified postprocedural states Category: Surgical (4) Bilateral hand pain: Code(s): M79.641 - Pain in right hand; M79.642 - Pain in left hand Category: Medical Plan Patient is status post 6th application of topical capsaicin 8% for chronic diabetic peripheral neuropathy in bilateral feet. Patient tolerated the procedure without significant discomfort without application of EMLA cream prior to the procedure and elected to proceed with Qutenza. She was discharged home in stable condition with discharge instructions. Short script provided for oxycodone 10 mg BID prn #20 tabs for severe bilateral hand pain., patient was encouraged to split tablets in half. She reported itching with 5 mg tablets but no itching with 10 mg while in [facility] hospital. Side effects and precautions were discussed with patient. She has Narcan at home. Follow up with [facility] next week as planned for surgical re-evaluation for hand pain. All questions and concerns have been answered and patient agreed with the plan. Follow up in 3 months for Qutenza and sooner as needed. Patient was informed and verbally consented to the use of an ambient scribe for clinic note documentation during this visit. Greater than 40 minutes were spent in therapeutic application and in coordination of the care. Orders: Orders AMB Capsaicin Patch - Practice Supplied Today E11.40 - Type 2 diabetes mellitus with diabetic neuropathy, unspecified Medications: Changed From oxycodone Partial Fill upon patient request. 5 mg PO Q8H 15 days PRN 30 tabs 0RF pain (scale score 7-10) To oxycodone Partial Fill upon patient request. 10 mg PO BID 10 days PRN 20 tabs 0RF pain (scale score 7-10) Discontinued oxycodone Partial Fill upon patient request. Discontinued Reason: Duplicate 5 mg PO Q6H PRN 20 tabs 0RF pain oxycodone Partial Fill upon patient request. Discontinued Reason: Duplicate 5 mg PO Q6H PRN 20 tabs 0RF pain Coding Level of Care Code Est Pt Level 4 (25208) Complex EM visit Add On G2211 Diagnoses Chronic painful diabetic neuropathy E11.40 History of carpal tunnel release Z98.890 Bilateral hand pain M79.641; M79.642
[2024-08-25 14:57] VITALS: BP 148/74; PULSE 100; O2SAT 97; BMI 39.1
[2024-08-25 15:51] VITALS: BP 162/80; BP 172/81; PULSE 96; O2SAT 98
--- OUTSIDE RECORDS SUMMARY | 2024-08-25 17:05 | XMS_ITS | Clinical Summary ---
Author Organization [facility] Address [address] [place] [address] Care Team Providers Care Airline Counter Agent Name Role Phone Zoraida Li MD Primary Care Provider [phone] Allergies Active Allergy Reactions Criticality Noted Date [...] age to complete this topic Care Teams Airline Counter Agent Relationship Specialty Start Date End Date Zoraida Li MD [address] [place] [id number] PCP - General Family Medicine 04/04/22
--- OUTSIDE RECORDS SUMMARY | 2024-08-25 17:05 | XMS_ITS | Clinical Summary ---
Author Organization [facility] Address [address] [place] [phone] Care Team Providers Care Cost And Risk Analysis Manager Name Role Phone Zoraida Li MD Primary [...] Influencers of Health Screening 06/02/2023 COVID-19 Vaccine (2023-2 5 season) 2024 Influenza Vaccine (Season Ended) 2025 HIB Vaccines Aged Out No longer eligi [...] age to complete this topic Meningococcal B Vaccine Aged Out No l onger eligible based on patient's age to complete [...] age to complete this topic Care Teams Cost And Risk Analysis Manager Relationship Specialty Start Date End Date Zoraida Li MD PCP - General 04/04/22
--- OUTSIDE RECORDS SUMMARY | 2024-08-25 17:05 | XMS_ITS ---
Author Name [facility] Organization Unknown Care Team Organization Name Specialty Phone Email Start Date End [facility] 12/31/2022 [facility] 04/04/2022
--- OUTSIDE RECORDS SUMMARY | 2024-08-25 17:06 | XMS_ITS | Data Portability ---
Author Organization [facility], Main Office Address [address] [facility] [address] [place] [address] Care Team Providers Care Information Clerk Brokerage Name Role Phone IVETTE MARTINES Urogynecologist VINCENT MUSE Paperboard Boxes Estimator [facility] Pain Management JEANNIE METZ Primary Care Provider ROXANN SOSA Crane Oiler [phone] Assessment No assessment recorded. Plan of Treatment Reminders Order Date Submit Date Provider Last Modified By Organization Details Last Modified Time Details Appointments None recorded. Lab microalbum in, urine 2017 018 [facility], [address], [place] [address], [place], [address], 8 14:18:56 hemoglobin A1C, fingerstic k 2017 018 In-Office Order, Internal Use Only DO Not Attach Compendium DO Not Attach Compendium, Do Not Delete/merge, [id number] 8 09:51:21 glucose, fingerstic k, blood 2017 018 In-Office Order, Internal Use Only DO Not Attach Compendium DO Not Attach Compendium, Do Not Delete/merge, [id number] 8 09:51:21 lipid panel, serum 2017 018 [facility], [address], [place] [address], [place], [address], 8 14:47:06 CMP, serum or plasma 2017 018 [facility], [address] , [place] , [place], [address], 8 14:47:05 Referral enrollment services vice president referral - 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 PT. is on Lyrica. Needs diabetic foot care. 2017 018 [email or web address] Not available 8 10:19:37 diabetic ophthalmol ogy referral - Diabetic eye exam. 2017 018 [email or web address] Not available 9 10:35:[address]/dietiti an referral 2017 018 [email or web address] Not available 8 10:19:[address] referral 2017 018 abolcun Not available 8 11:11:58 urogynecol ogist referral - this pt is at no increased risk for upcoming bladder-tsering tox procedurer on Mar 02, 2017. There are no contraindi cations- Pt feels well and will continue current tx. 2016 017 kathi Martines MD, [facility] [place], [address], 7 09:00:31 Procedures None recorded. Surgeries None recorded. Imaging MAMMO, screening, bilateral - Perform Diagnostic Mammogram and Breast Ultrasound if needed / Perform Ultrasound Guided Aspiration and/or Breast Biopsy if warranted 2017 018 [facility], [address] [place], [address], 8 11:28:39 XR, lumbosacra l spine - low back pain with radiculopa thy 2016 017 [facility], [address] [place], [address], 7 15:26:52 XR, sacroiliac joint(s) - left low back pain with radiculopa thy 2016 017 [facility], [address] [place], [address], 7 15:26:53 Medication Orders Chantix Starting Month Box 0.5 mg (11)-1 mg (42) tablets in dose pack 2017 018 [facility]/Pharmacy #[id number], [address] [facility] [place], [address], 8 10:04:23 Chantix Continuing Month Box 1 mg tablet 2017 018 [facility]/Pharmacy #[id number], [address] [facility] [place], [address], 8 10:04:21 Temovate 0.05 % topical ointment 2017 018 [email or web address]/Pharmacy #[id number], [address] [facility] [place], [address], 8 13:42:34 meloxicam 15 mg tablet 2016 017 [facility]/Pharmacy #1130, [phone] [place], [address], 8 09:59:25 methocarba mol 750 mg tablet 2016 017 [facility]/Pharmacy #1130, [phone] [place], [address], 7 09:36:04 acetaminop hen 300 mg-codeine 30 mg tablet 2016 017 [facility]/Pharmacy #1130, [phone] [place], [address], 8 09:58:39 Patient TargetsNo targets recorded. Patient Instructions Encounter Date Encounter Id Patient Instructions Last Modified By Organization Details Last Modified Time 09/30/2016 [id number] Urinary Tract Infection (UTI) in Women: Care Instructions Not available 09/30/2016 14:09:22 Call or return for worsening or concerns [email or web address] Not available 09/30/2016 10:28:38 At [facility] follow up visit, all current and discharge [...] care. [email or web address] Not available 09/30/2016 17:31:22 01/06/2017 [id number] acute low back pain: exercises Not available 01/06/2017 15:45:22 getting back to normal after low back pain: care instructions Not available 01/06/2017 15:45:22 Call or return for worsening or concerns [email or web address] Not available 01/06/2017 15:36:08 I have reviewed the note and agree with the assessment and plan of care. [email or web address] Not available 01/06/2017 16:37:20 08/03/2017 [id number] preventing falls: care instructions [email or web address] Not available 08/03/2017 10:24:23 Cervical Cancer Screening mdalessandro Not available 08/03/2017 10:24:23 11/16/2017 [id number] dash diet: care instructions Not available 11/16/2017 [...] Kevin Burns, Internal Medicine, Encounter Date: 02/19/2017 Food Production Manager Referral for Sc reening for malignant neoplasm of cervix Referring Physician: Kevin Burns, Internal Medicine, Encounter Date: 08/03/2017 Machine Pie Maker Referral for Diso rder of nervous system due to diabetes mellitus Diabetes Mellitus TYpe II with diabetic peripheral neuropathy. PT. is on Lyrica. Needs diabetic foot care. Referring Physician: Jeannie Metz, Internal Medicine, Encounter Date: 11/16/2017 Diabetic Ophthalmology Refer ral for Uncontrolled type 2 diabetes mellitus Diabetic eye exam. Referring Physician: Jeannie Metz, Internal Medicine, Encounter Date: 11/16/2017 Legal Job Titles/dietitian Refer ral for Body mass index 30+ [...] DO Not Attach Compendium, Do Not Delete/merge, [id number] 09/19/2016 10:57:50 09/20/19 17 09/19/2016 urina lysis , dipst ick Nitrite positi ve Not Available In-Office Order Internal Use Only DO Not Attach Compendium DO Not Attach Compendium, Do Not Delete/merge, [id number] 09/19/2016 10:57:50 09/20/19 17 09/19/2016 urina lysis , dipst ick Urobilinogen .2 Not Available In-Of fice Order Internal Use Only DO Not Attach Compendium DO Not Attach Compendium, Do Not Delete/merge, [id number] 09/19/2016 10:57:50 09/20/19 17 09/19/2016 urina lysis [...] 09/20/1909/19/2016 urina lysis , dipst ick Specific [place] 1.015 Not Available In-Off ice Order Internal [...] DO Not Attach Compendium, Do Not Delete/merge, [id number] 09/19/2016 10:57:50 09/20/1909/20/2016 urina lysis , compl [...] DO Not Attach Compendium, Do Not Delete/merge, [id number] 11/16/2017 09:34:27 11/17/1911/16/2017 hemog lobin A1Ckorey rstic k HA1C 10.0 % 4-6 Not Available In-Office Order Internal Use Only DO Not Attach Compendium DO Not Attach Compendium, Do Not Delete/merge, [id number] 11/16/2017 09:33:53 11/19/19 18 11/18/2017 micro album [...] Go To The Location Of Their Choice, [facility] 11/18/2017 14:47:05 11/19/1911/18/2017 lipid panel , serum cholesterol, total 142 mg/dL (<200) Not Available [facility] (Centralized Electronic Ordering - All Locations) Patient Can Go To The Location Of Their Choice, [facility] 11/18/2017 14:47:06 11/19/19 18 11/18/2017 lipid panel , serum triglyceride 123 mg/dL (<150) Not Available [facility] (Centralized Electronic Ordering - All Locations) Patient Can Go To The Location Of Their Choice, [facility] 11/18/2017 14:47:06 11/19/19 18 11/18/2017 lipid panel , serum HDL chol 42 mg/dL (>39) Not Available [facility] (Centralized Electronic Ordering - All Locations) Patient Can Go To The Location Of Their Choice, [facility] 11/18/2017 14:47:06 11/19/19 18 11/18/2017 lipid panel , serum LDL cholesterol, calculated 75 mg/dL (0-130 ) Not Available [facility] (Centralized Electronic Ordering - All Locations) Patient Can Go To The Location Of Their Choice, [facility] 11/18/2017 14:47:06 11/19/1911/18/2017 lipid panel , serum non HDL cholesterol (calc) 100 mg/dL (<160) Not Available [facility] (Centralized Electronic Ordering - All Locations) Patient Can Go To The Location Of Their Choice, [facility] 11/18/2017 14:47:06 09/25/19 17 09/23/2016 US, kidne y No observ ation record ed. [email or web address] Not Available 17:51:26 01/08/20 17 01/06/2017 XR, lumbo sacra l spine No observ ation record ed. [email or web address] [facility] [address] [address], [place], [address], 01/09/2017 14:52:34 01/08/20 17 01/06/2017 XR, sacro iliac joint (s) No observ ation record ed. [email or web address] [facility] [address] [address], [place], [address], 01/09/2017 14:52:34 08/18/19 18 08/11/2017 MAMMO , scree solis, bilat eral No observ ation record ed. [email or web address] [facility] [address] [facility], [place], [address], 08/17/2017 16:21:15 Result Notes None recorded. Problems Name Problem SNOMED Code Status Onset Date Resolution Date Notes Provider Name and Address Organization Details Recorded Time Mya goldsmithen jim 35632779 Active Thalia emmanuel, [facility] 8 14:05:25 Hyperlip idemia 58791856 Active Thalia emmanuel, [facility] 8 14:05:25 Diabetes mellitus 92451996 Completed 11/16/2017 Jeannie Metz PA-C [address] [facility] [address], [place], [address] , [facility] 8 09:55:17 Low back pain 242898454 Completed 08/21/2016 Dyan emmanuel, [facility] 7 08:56:16 Gastroes ophageal reflux disease 830174930 Active Thalia emmanuel, [facility] 8 14:05:25 Acute bronchit is 45477583 Completed 200711/22/2013 RECORDED 02/01/20 08 10:12AM BY PASCUAL PUTNAM MA, ANNOTATI ON/DAYNE emmanuel, [facility] 6 12:21:01 Acute pharyngi tis 532112815 Completed 201211/22/2013 RECORDED 11/10/19 13 9:52AM BY MALICK HILL MA, ANNOTATI ON/DAYNE emmanuel [facility] 6 12:21:01 Chronic allergic conjunct ivitis 70518736 Completed 201211/22/2013 RECORDED 05/11/19 13 9:31AM BY MALICK HILL MA, ANNOTATI ON/ADDEN DUM Kevin evans null, [facility] 6 12:21:01 Allergy Completed 201111/22/2013 RECORDED 11/17/19 12 9:29AM BY IVETH OSUNA I ANNOTATI ON/ADDEN DUM Kevin evans null, [facility] [...] neoplasm of breast Completed 09/30/2016 JEM Barnett, [facility] 7 10:15:40 Screenin g for malignan t neoplasm of cervix Completed 201211/22/2013 RECORDED 05/11/19 13 9:31AM BY MALICK HILL MA, ANNOTATI ON/ADDEN DUM Dyan emmanuel, [facility] 7 08:56:00 Constipa tion 69555517 Completed 08/21/2016 Dyan emmanuel, [facility] 7 08:55:40 Risk of exposure to communic able disease 481161414 Completed 201111/22/2013 RECORDED 11/17/19 12 9:29AM BY JAYASHREE DOUGLASATI ON/ADDEN DUM Kevin evans null, [facility] 6 12:21:01 Renal disorder due to type 2 diabetes mellitus 101412428 Active Thalia Alvarez cholo, [facility] 8 14:05:25 Dysfunct ional uterine bleeding Completed 201111/22/2013 STORY: SEVERE CRAMPING ; RECORDED 11/17/19 12 9:29AM BY RICK DOUGLAS ON/ADDEN DUM Kevin evans null, [facility] 6 12:21:01 Divertic ulitis of colon 371636825 Active Thalia Alvarez null, [facility] 8 14:05:25 Dysuria 48230030 Completed 09/16/2016 Dyan emmanuel, [facility] 7 15:45:17 Dysuria 13649926 Completed 201211/22/2013 RECORDED 05/11/19 13 9:31AM BY MALICK HILL MA, RICK ON/ADDEN DUM Dyan emmanuel, [facility] 7 15:45:17 Follow-u p encounte r Completed 201211/22/2013 RECORDED 03/29/20 13 10:46AM BY EMMA SAGASTUME MA, [facility]ICK [facility] Kevin emmanuel, [facility] 6 12:21:01 Influenz a vaccine needed 12664297416 06 Completed 08/21/2016 Dyan emmanuel, [facility] 7 08:55:43 Influenz a vaccine needed 73803344596 06 Completed 200711/22/2013 RECORDED 08/05/19 08 10:33AM BY GABRIELA TAYLORIC AL SUMMARY Dyan emmanuel, [facility] 7 08:55:43 Tobacco user 698938768 Completed 201211/22/2013 RECORDED 03/29/20 13 10:46AM BY EMMA SAGASTUME MA, RICK ON/ADD DUM Kevin emmanuel, [facility] 6 12:21:01 History of clinical finding in subject 372307277 Completed 08/21/2016 Dyan Braun MA null, [facility] 7 08:56:29 Adult health examinat ion Completed 201211/22/2013 RECORDED 06/24/19 13 8:51AM BY MALICK HILL MA, ANNOTATI ON/ADDEN DUM Kevin Acosta'Alessand ro null, [facility] 6 12:21:01 General examinat ion of patient Completed 200711/22/2013 RECORDED 02/01/20 08 10:12AM BY PASCUAL PUTNAM MA, ANNOTATI ON/ADDEN DUM Kevin Acosta'Alessand ro null, [facility] 6 12:21:01 Hirsuduke m 677590209 Active Thalia Alvarez null, [facility] 8 14:05:25 Ingrowin g nail 755269147 Completed 201111/22/2013 RECORDED 11/17/19 12 9:29AM BY JAYASHREE DOUGLASATI ON/ADDEN DUM Kevin Acosta'Maida ro null, [facility] 6 12:21:01 Laborato ry procedur e performe d 660376931 Completed 08/21/2016 Dyan emmanuel, [facility] 7 08:56:04 Menstrua tion finding Completed 201211/22/2013 RECORDED 03/29/20 13 10:46AM BY EMMA SAGASTUME MA, ANNOTATI ON/ADDEN DUM Kevin Acosta'Alelizett ro null, [facility] 6 12:21:01 Dysmenor sanjay 145315587 Completed 201211/22/2013 RECORDED 03/29/20 13 10:47AM BY EMMA SAGASTUME MA, ANNOTATI ON/ADDEN DUM Kevin Acosta'Alelizett ro null, [facility] 6 12:21:01 Fibromyo sitis 46092338 Completed 201111/22/2013 STORY: DUE TO ATORVAST ATIN [...] Center 6 12:21:01 Female genital organ symptoms 721032691 Completed 201211/22/2013 RECORDED 05/11/19 13 9:31AM BY MALICK HILL [facility], [facility] Kevin Henry ro null, [facility] 6 12:21:01 Tobacco user 493357991 Active Thalia Alvarez null, [facility] 8 14:05:25 Polycyst ic ovaries Completed 201111/22/2013 RECORDED 11/17/19 12 9:29AM BY RICK DOUGLAS ON/ADDEN MEGAN Henry ro null, [facility] 6 12:21:01 Proteinu radha 80475187 Active Thalia Alvarez null, [facility] 8 14:05:25 Proteinu radha 39624552 Completed 201111/22/2013 RECORDED 11/17/19 12 9:29AM BY [facility] Kevin Henry ro null, [facility] 6 12:21:01 Eruption [id number] Completed 201111/22/2013 IMPRESSI ON: PT WITH PROGRESS PAMELA HIGHLY PRURITIC RASH X PAST WEEK, HANDS, FEET NOW TORSO BREAST AND ABDO AFFECTED . 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 HIGHLY SUSPICIO US FOR SCABIES INFX. ADVISED RE USE OF MED, CLEANING AND LAUNDERI NG AT HOME. OOW X TODAY AND W/E, NOTE PROVIDED . TO CALL IF RASH PERSISTS AFTER TX.; RECORDED 11/17/19 12 9:29AM BY JAYASHREE DOUGLASATI ON/ADDEN DUM Kevin Acosta'Alessand ro null, [facility] 6 12:21:01 Sleep apnea 01429182 Completed 201111/22/2013 RECORDED 11/17/19 12 9:29AM BY JAYASHREE DOUGALSATI ON/ADDEN DUM Kevin Acosta'Alessand ro null, [facility] 6 12:21:01 Tobacco dependen ce syndrome 31730218 Completed 201111/22/2013 RECORDED 06/21/19 12 11:13AM BY PASCUAL PUTNAM MA, JAYASHREEATI ON/ADDEN DUM Kevin Acosta'Alessand ro null, [facility] 6 12:21:01 Type 2 diabetes mellitus without complica tion 932429035 Completed 201111/22/2013 RECORDED 11/17/19 12 9:29AM BY RICK DOUGLAS ON/ADDEN DUM Kevin Acosta'Alessand ro null, [facility] 6 12:21:01 Uncontro lled type 2 diabetes mellitus 148457371 Completed 200811/22/2013 RECORDED 05/30/19 09 7:36AM BY PASCUAL PUTNAM MA, RICK ON/ADDEN DUM Kevin Acosta'Alessand ro null, [facility] 6 12:21:01 Urinary tract infectio us disease 90711533 Completed 201211/22/2013 STORY: CT NEG @ [facility]/N O PATHOLOG Y. F/U PRN; RECORDED 03/29/20 13 10:46AM BY EMMA SAGASTUME MA, RICK ON/ADDEN DUM Kevin Henry ro null, [facility] 6 12:21:01 Vaginiti s and vulvovag initis Completed 201211/22/2013 RECORDED 06/24/19 13 8:51AM BY MALICK HILL MA, ANNOTATI ON/ADDEN DUM Dyan Braun MA null, [facility] 7 08:55:57 Candidal vulvovag initis 77874799 Completed 200711/22/2013 RECORDED 02/01/20 08 10:12AM BY PASCUAL PUTNAM MA, ANNOTATI ON/ADDEN DUM Kevin BanegasAleandreaand ro null, [facility] 6 12:21:01 Acute bronchit is 74244819 Completed 200712/12/2013 RECORDED 02/01/20 08 10:12AM BY PASCUAL PUTNAM MA, ANNOTATI ON/ADDEN DUM Kevin BanegasAlessand ro null, [facility] 6 12:21:01 Acute pharyngi tis 425898608 Completed 201212/12/2013 RECORDED 11/10/19 13 9:52AM BY MALICK HILL MA, ANNOTATI ON/ADDEN DUM Kevin Acosta'Alessand ro null, [facility] 6 12:21:01 Chronic allergic conjunct ivitis 13204546 Completed 201212/12/2013 RECORDED 05/11/19 13 9:31AM BY MALICK HILL MA, ANNOTATI ON/ADDEN DUM Kevin Acosta'Alessand ro null, [facility] 6 12:21:01 Allergy Completed 201112/12/2013 RECORDED 11/17/19 12 9:29AM BY RICK DOUGLAS ON/ADDEN DUM Kevin Elsy'Alessand ro null, [facility] 6 12:21:01 Examinat ion for suspecte d mental disorder Completed 201212/12/2013 RECORDED 11/10/19 13 9:52AM BY MALICK HILL MA, ANNOTATI ON/ADDEN DUM Kevin emmanuel, [facility] 6 12:21:01 Backache 205644676 Completed 08/21/2016 Dyan emmanuel [facility] 7 08:55:50 Screenin g for malignan t neoplasm of breast Completed 201112/12/2013 RECORDED 11/17/19 12 9:29AM BY RICK DOUGLAS ON/ADDEN DUM JEM Barnett [facility] 7 10:15:40 Screenin g for malignan t neoplasm of cervix Completed 08/21/2016 Dayn emmanule, [facility] 7 08:56:00 Screenin g for malignan t neoplasm of cervix Completed 201212/12/2013 RECORDED 05/11/19 13 9:31AM BY MALICK HILL MA, ANNOTATI ON/ADDEN DUM Dyan emmanuel [facility] 7 08:56:00 Risk of exposure to communic able disease 687353099 Completed 201112/12/2013 RECORDED 11/17/19 12 9:29AM BY RICK DOUGLAS ON/ADDEN DUM Kevin emmanuel, [facility] 6 12:21:01 Depressi ve disorder 11148741 Completed 05/28/2014 Kevin emmanuel [facility] 6 12:21:01 Dysfunct ional uterine bleeding Completed 201112/12/2013 STORY: SEVERE CRAMPING ; RECORDED 11/17/19 12 9:29AM BY RICK DOUGLAS ON/ADDEN DUM Kevin emmanuel [facility] 6 12:21:01 Follow-u p encounte r Completed 201212/12/2013 RECORDED 03/29/20 13 10:46AM BY EMMA SAGASTUME MA, ANNOTATI ON/ADDEN DUM Kevin evans null, [facility] 6 12:21:01 Influenz a vaccine needed 20540490771 06 Completed 200912/12/2013 DATE: 04/23/20 10; RECORDED 11/16/19 14 12:57PM BY PASCUAL PUTNAM MA, ANNOTATI ON/ADDEN DUM Dyan Braun MA null, [facility] 7 08:55:43 Tobacco user [id number] Completed 201212/12/2013 RECORDED 03/29/20 13 10:46AM BY [...] MA, ANNOTDOMONIQUE ON/ADDEN DUM Kevin evans null, [facility] 6 12:21:01 Ingrowin g nail 608386823 Completed 201112/12/2013 RECORDED 11/17/19 12 9:29AM BY IVETH OSUNA I, JAYASHREEATI ON/ADDEN DUM Kevin evans null, [facility] 6 12:21:01 Laborato ry procedur e performe d 582543047 Completed 201312/12/2013 RECORDED 11/16/19 14 12:57PM BY PASCUAL PUTNAM MA, ANNOTATI ON/ADDEN DUM Dyan emmanuel, [facility] 7 08:56:04 Low back pain 139968880 Completed 201312/12/2013 RECORDED 11/16/19 14 12:56PM BY PASCUAL PUTNAM MA, ANNOTATI ON/ADDEN MEGAN Braun MA null, [facility] 7 08:56:16 Menstrua tion finding Completed 201212/12/2013 RECORDED 03/29/20 13 10:46AM BY EMMA SAGASTUME MA, ANNOTATI ON/ADDGLENN evans null, [facility] 6 12:21:01 Dysmenor sanjay 952124842 Completed 201212/12/2013 RECORDED 03/29/20 13 10:47AM BY EMMA SAGASTUME MA, ANNOTATI ON/ADDEN MEGAN emmanuel, [facility] 6 12:21:01 Fibromyo sitis 71245237 Completed 201112/12/2013 STORY: DUE TO ATORVAST ATIN (TOLERAT ES SIMVASTA TIN); RECORDED 03/17/20 12 2:26PM BY MALICK HILL MA, RICK ON/ADDGLENN emmanuel, [facility] 6 12:21:01 Administ ration of bacteria l and viral vaccine Completed 200712/12/2013 RECORDED 02/01/20 08 10:14AM BY PASCUAL PUTNAM MA, OFFICE VISIT Kevin emmanuel, [facility] 6 12:21:01 Female genital organ symptoms 489122431 Completed 201212/12/2013 RECORDED 05/11/19 13 9:31AM BY MALICK HILL MA, RICK ON/DANYE emmanuel, [facility] 6 12:21:01 Polycyst ic ovaries Completed 201112/12/2013 RECORDED 11/17/19 12 9:29AM BY RICK DOUGLAS ON/ADDEN DUM Kevin Acosta'Alessand ro null, [facility] 6 12:21:01 Eruption [id number] Completed 201112/12/2013 IMPRESSI ON: PT WITH PROGRESS PAMELA HIGHLY PRURITIC RASH X PAST WEEK, HANDS, FEET NOW TORSO BREAST AND ABDO AFFECTED . 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 HIGHLY SUSPICIO US FOR SCABIES INFX. ADVISED RE USE OF MED, CLEANING AND LAUNDERI NG AT HOME. OOW X TODAY AND W/E, NOTE PROVIDED . TO CALL IF RASH PERSISTS AFTER TX.; RECORDED 11/17/19 12 9:29AM BY RICK DOUGLAS ON/ADDEN DUM Kevin Leiand ro null, [facility] 6 12:21:01 Sleep apnea 12417877 Completed 201112/12/2013 RECORDED 11/17/19 12 9:29AM BY RICK DOUGLAS ON/ADDEN DUM Kevin Leiand ro null, [facility] 6 12:21:01 Tobacco dependen ce syndrome 72409777 Completed 201112/12/2013 RECORDED 06/21/19 12 11:13AM BY PASCUAL PUTNAM MA, RICK ON/ADDEN DUM Kevin Leiand ro null, [facility] 6 12:21:01 Type 2 diabetes mellitus without complica tion 930984369 Completed 201112/12/2013 RECORDED 11/17/19 12 9:29AM BY RICK DOUGLAS ON/ADDEN DUM Kevin Acosta'Alessand ro null, [facility] 6 12:21:01 Uncontro lled type 2 diabetes mellitus 354512278 Completed 200812/12/2013 RECORDED 05/30/19 09 7:36AM BY PASCUAL PUTNAM MA, ANNOTATI ON/ADDEN [facility] Kevin evans null, [facility] 6 12:21:01 Urinary tract infectio us disease 54853490 Completed 201212/12/2013 STORY: [facility] NEG @ [facility]/N O PATHOLOG Y. F/U PRN; RECORDED 03/29/20 13 10:46AM BY EMMA SAGASTUME MA, ANNOTATI ON/ [facility] Kevin evans null, [facility] 6 12:21:01 Vaginiti s and vulvovag initis Completed 201212/12/2013 RECORDED 06/24/19 13 8:51AM BY MALICK HILL MA, [facility]I ON/ [facility], [facility] 7 08:55:57 Candidal vulvovag initis 58225591 Completed 200712/12/2013 RECORDED 02/01/20 08 10:12AM BY PASCUAL PUTNAM MA, ANNOTATI ON/[facility] Kevin evans null, [facility] 6 12:21:01 Acute vaginiti s 51219010 Completed 08/21/2016 Dyan emmanuel, [facility] 7 08:56:09 Vaginiti s 96054033 Completed 08/21/2016 Dyan emmanuel, [facility] 7 08:56:22 Spasm 10946009 Completed 08/21/2016 Dyan emmanuel, [facility] 7 08:56:33 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 22247883 Active Thalia Alvarez chool, [facility] 8 14:05:25 Major depressi ve disorder 605949093 Active Thalia Alvarez null, [facility] 8 14:05:25 Pain in pelvis 60618379 Completed 08/21/2016 Dyan emmanuel, [facility] 7 08:56:20 Leukocyt osis 593154400 Active Thalia Antonio emmanuel, [facility] 8 14:05:25 Steatosi s of liver 466822641 Active Thalia Alvarez null, [facility] 8 14:05:25 Shoulder joint pain 437009350 Completed 08/21/2016 Dyan emmanuel, [facility] 7 08:56:14 Chronic pain 54374616 Active Thalia Alvarez null, [facility] 8 14:05:25 Disorder of nervous system due to diabetes mellitus 694520349 Active Thalia Alvarez cholo, [facility] 8 14:05:25 Urinary incontin ence 903462155 Active Thalia Alvarez null, [facility] 8 14:05:25 Vaginiti s and vulvovag initis Completed 08/21/2016 Dyan emmanuel [facility] 7 08:55:57 Lateral epicondy litis 544651977 Active Thalia Alvarezana maria emmanuel, [facility] 8 14:05:25 Edema of the upper extremit y 422454868 Completed 08/21/2016 Dyan emmanuel [facility] 7 08:55:46 Insomnia disorder related to another mental disorder 95428183 Active 2017 Jeannie Metz PA-C [address] [facility] [address], [facility] [place], [address] , [facility] 8 09:59:11 Chronic kidney disease stage 1 844027683 Active 2017 Shellie emmanuel [facility] Alvarez [facility] 07/09/2017 15:02:16 017 Cystourethroscopy completed Deb Quick [facility] 03/19/2017 15:05:02 017 Chronic Pain Assessment completed Dyan Braun MA [facility] 08/21/2016 08:56:53 012 Date of Last Pap Smear completed Jessica Gomez MA [facility] 11/22/2013 10:36:18 Tubal Ligation completed LEIF Abdullahi [address] [facility] [address], [place], [address], [place] [facility] 11/22/2013 10:57:11 Imaging Results Imaging Date Name Status LastModified by Organiz ation Details LastModified Time 09/23/2016 US, kidney completed Information not available 09/24/2016 17:51:26 01/06/2017 XR, lumbosacral spine completed [email or web address] [facility] [place] [address] [facility] [address], [address], 01/09/2017 14:52:34 01/06/2017 XR, sacroiliac joint(s) completed [email or web address] [facility] [place] [address] [facility] [address], [place], [address], 01/09/2017 14:52:34 08/11/2017 MAMMO, screening, bilateral completed [email or web address] [facility] [address] [place], [address], 08/17/2017 16:21:15 Procedure Notes None recorded. Medical Equipment None Reported. Allergies Allergen ID Allergen Name Allergen Category Reaction Reaction Severity Criticality Documentation Date Start Date Code Code System Note Provider Name and Address Organization Details Recorded Time 92974 Product containin g angiotens in-conver ting enzyme inhibitor (product) medicatio n cough Not available Not available 11/15/20132013 14176 009 SNOMED JEM Farfan [facility] 4 15:39:36 67643 Byetta medicatio n other Not available Not available 11/15/20132013 94954 1 RxNorm JEM Farfan [facility] 4 15:39:36 13398 Cymbalta medicatio n rash severe Not available 04/13/20142013 29637 4 RxNorm ? SJS from this med ALEJANDRINA Fleming [facility] 4 10:43:02 85070 Product containin g penicilli n (product) medicatio n hives moderate Not available 09/19/2016 59087 8001 [facility]ED [facility] 11:26[facility]10 Medications Name Sig Start [...] active RECORDED 10/15/19 14 2:52PM BY MALICK HILL, [place], ANNOTATI ON/ADDGLENN DUM; Not Available [...] 09 8:59AM BY KEVIN BYRD MD, ANNOTATI ON/ADDGLENN DUM;THIS ORDER DISCONTI NUED PER [facility] N. Not Available Not Available Not Available [...] 12:59PM BY PASCUAL PUTNAM MA, OFFICE VISIT;DR VINCETN CLIFFORD/ENDOC RINE Not Available Not Available Not Available prazosin 2 mg capsule Take 1 capsule every day by oral route for 30 days. 08/21 completed Not Available Not Available Not Available albuterol (refill) 90 mcg/actua tion aerosol inhaler FOUR TIMES DAILY, NEEDED 02/04 completed RECORDED 02/05/20 10 11:42AM BY RICK GUERRIER/DAYNE GUZMAN;THIS ORDER DISCONTI NUED PER [facility]. Not Available Not Available Not Available [...] Not Available Not Available Not Available Pen [place] THREE TIMES DAILY 05/28 completed RECORDED 05/28/19 12 3:04PM BY RICK GUERRIER ON/ADDEN DUM; Not Available Not Available Not Available BD Insulin Syringe Ult-Fine II 1 mL 31 gauge x / active Not Available Not Available Not Available [facility] [place] kit QD active Not Available Not Available [...] Available Not Available Not Available Fluarix Quad 4671-3137 (PF) 60 mcg (15 mcg x 4)/0.5 [...] % 98 % 89 /min 98.3 [degF] 653648. 31 g 35.9 kg/m2 119 mm[Hg] 63 mm[Hg] Jessica Gomez [facility] 7 10:23:05 Date Recorded Body height Body mass index (BMI) Body weight Heart rate Oxygen saturation Oxygen saturation in Arterial blood by Pulse oximetry Body temperature Systolic blood pressure Diastolic blood pressure Provider Name and Address Organization Details Last Updated DateTime 7 167.64 cm 35 kg/m2 68923.5 4 g 103 /min 97 % 97 % 98 [degF] 134 mm[Hg] 78 mm[Hg] Iveth Sorensen [facility] 7 14:41:13 Date Recorded Body height Body mass index (BMI) Body weight Heart rate Oxygen saturation Oxygen saturation in Arterial blood by Pulse oximetry Body temperature Systolic blood pressure Diastolic blood pressure Provider Name and Address Organization Details Last Updated DateTime 7 167.64 cm 35.2 kg/m2 93939.8 4 g 71 /min 99 % 99 % 97.1 [degF] 127 mm[Hg] 81 mm[Hg] Dyan Braun [facility] 7 09:35:08 Date Recorded Body height Body mass index (BMI) Body weight Oxygen saturation Oxygen saturation in Arterial blood by Pulse oximetry Heart rate Systolic blood pressure Diastolic blood pressure Provider Name and Address Organization Details Last Updated DateTime 8 167.64 cm 35.6 kg/m2 48787.4 2 g 97 % 97 % 85 /min 122 mm[Hg] 77 mm[Hg] Dyan Braun [facility] 8 10:02:08 Date Recorded Body height Body mass index (BMI) Body weight Body temperature Oxygen saturation Oxygen saturation in Arterial blood by Pulse oximetry Heart rate Systolic blood pressure Diastolic blood pressure Provider Name and Address Organization Details Last Updated DateTime 8 167.64 cm 35.1 kg/m2 37996.3 4 g 97.4 [degF] 96 % 96 % 85 /min 122 mm[Hg] 78 mm[Hg] Wen Edie [facility] 8 09:26:56 Social History Question Answer Notes LastModified by Organizat ion Details LastModified Time Tobacco Smoking Status Current Every Day Smoker Patient did quit, after accident she started again Emma emmanuel, [facility] 11/16/2014 12:59:47 Do You Have An Advance Directive? No Information not available 12/14/2015 What Is Your Level Of Alcohol Consumption? None [email or web address] Information not available 11/22/2013 Is Blood Transfusion Acceptable In An Emergency? Yes Information not available 11/16/2014 What Is Your Level Of Caffeine Consumption? Occasional Mostly Coffee Sometimes Soda [email or web address] Information not available 11/22/2013 How Much Tobacco Do You Chew? None [email or web address] Information not available 11/22/2013 Are You Currently Employed? No Information not available 11/16/2014 Are You Deaf Or Do You Have Serious Difficulty Hearing? No [email or web address] Information not available 11/22/2013 What Type Of Diet Are You Following? DIABETIC Information not available 11/16/2014 Which Illicit Or Recreational Drugs Have You Used? N/A Information not available 11/16/2014 Have There Been Any Changes To Your Family Or Social Situation? No Information not available 11/22/2013 Are There Any Guns Present In Your Home? No [email or web address] Information not available 11/22/2013 Single Or Multi-level Home/work? Single Level Home [email or web address] Information not available 11/22/2013 Legally Blind In One Or Both Eyes? No [email or web address] Information not available 11/22/2013 Live Alone Or With Others? Alone [email or web address] Information not available 11/22/2013 Do You Take Precautions To Prevent Distracted Driving? Yes Information not available 08/03/2017 How Often Do You Need To Have Someone Help You When You Read Instructions, Pamphlets, Or Other Written Material From Your Doctor Or Pharmacy? Never Information not available 12/14/2015 Have You Served In The ? No Information not available 08/03/2017 Marital Status Informatio n not available 11/22/2013 What Was The Date Of Your Most Recent Tobacco Screening? 08/03/2017 Information not available 11/25/2018 How Many Children Do You Have? 2 Dtr Marialuisa And Emigdio [email or web address] Information not available 12/14/2015 Difficulty Reading? No [email or web address] Information not available 11/22/2013 Seat Belts Used Routinely Yes Information not available 11/16/2014 Smoke Alarm In Home Yes [email or web address] Information not available 11/22/2013 At What Age Did You Start Smoking Tobacco? 16 Information not available 11/16/2014 Are You Passively Exposed To Smoke? No [email or web address] Information not available 11/22/2013 How Much Tobacco Do You Smoke? 1 PPD Information not available 11/16/2014 General Stress Level High Information not available 11/22/2013 Do You Use Any Illicit Or Recreational Drugs? No [email or web address] Information not available 11/22/2013 Do You Use Sunscreen Routinely? No Information not available 11/16/2014 How Many Years Have You Smoked Tobacco? 20 [email or web address] Information not available 11/22/2013 Difficulty Watching TV? No Information not available 11/22/2013 Sex: Unknown Functional Status Question Answer Note LastModified by Organizat ion Details LastModified Time Do you have difficulty walking or climbing stairs? Yes Information not available 11/22/2013 Difficulty driving at night? No [email or web address] Information not available 11/22/2013 Do you have difficulty doing errands alone? No [email or web address] Information not available 11/22/2013 Are you able to care for yourself? Yes Marialuisa is proxy Information not available 12/14/2015 Do you have difficulty dressing or bathing? No [email or web address] Information not available 11/22/2013 What is your exercise level? None Information not available 11/16/2014 Mental Status Question Answer Note LastModified by Organization D etails LastModified Time Do you have difficulty concentrating, remembering or making decisions? No [email or web address] Information no t available 11/22/2013 Family History [...] virus, trivalent, PF 5 completed Thalia emmanuel [facility] 08/11/2017 14:05:20 pneumococcal polysaccharide PPV23 4 completed Thalia Alvarez null, [facility] 08/11/2017 14:05:20 Influenza, split virus, trivalent, preservative 6 completed Thalia Alvarez null, [facility] 08/11/2017 14:05:20 Tdap 8 completed Thalia Alvarez null, [facility] 08/11/2017 14:05:20 Influenza, split virus, quadrivalent, PF 7 completed Not Available [facility] 05/21/2019 02:22:13 pneumococcal polysaccharide [...] trivalent, preservative 3 completed Thalia Alvarez null, [facility] 08/11/2017 14:05:20 Past Encounters Encounter ID Performer Location Encounter Start Date Encounter Closed Date Diagnosis/Indication Diagnosis SNOMED-CT Code Diagnosis ICD10 Code Diagnosis Note [id number] Main Office [address] [place] [address] 11/22/2013 09:54:55 11/22/2013 11:27:21 Adult health examination [id number] Diabetes mellitus 96083280 Low back pain 225130995 Essential hypertension 23124695 Hyperlipidemia 29245056 Gastroesop hageal reflux disease 541235808 [id number] [facility] [address] [place] [address] 04/23/2010 00:00:00 [id number] [facility] erce [address] [facility],[address] [place] [address] 04/23/2010 00:00:00 [id number] [facility] [address] [facility],[address] [place] [address] 04/23/2010 00:00:00 [id number] [facility] er[facility] [address] [facility],[address] [place] [address] 09/27/2010 00:00:00 [id number] [facility] [address] [facility],[address] [place] [address] 10/22/2010 00:00:00 [id number] [facility] [address] [facility],[address] [place] [address] 10/22/2010 00:00:00 [id number] [facility] [address] [facility],[address] [place] [address] 04/29/2011 00:00:00 [id number] [facility] [address] [facility],[address] [place] [address] 04/29/2011 00:00:00 [id number] [facility] er[facility] [address] [facility],[address] [place] [address] 06/21/2011 00:00:00 [id number] [facility] [address] [facility],[address] [place] [address] 08/27/2011 00:00:00 [id number] auto[facility]Comm erce [address] [facility],[address] [place] [address] 08/27/2011 00:00:00 [id number] [facility] erce [address] [facility],[address] [place] [address] 10/28/2011 00:00:00 [id number] [facility] er[facility] [address] [place] [address] 10/28/2011 00:00:00 [id number] auto[facility] erce [address] [place] [address] 10/28/2011 00:00:00 [id number] [facility] [address] [place] [address] 10/28/2011 00:00:00 [id number] auto[facility] erce [address] [place] [address] 11/01/2011 00:00:00 [id number] auto[facility] er[facility] [address] [place] [address] 11/01/2011 00:00:00 [id number] [facility] [address] [place] [address] 11/01/2011 00:00:00 [id number] autoEComm erce [address] [facility] [address] [place] [address] 11/01/2011 00:00:00 [id number] autoEComm erce [address] [facility] [address] [place] [address] 11/17/2011 00:00:00 [id number] auto[facility] erce [address] [place] [address] 11/17/2011 00:00:00 [id number] auto[facility]Comm erce [address] [facility] [address] [place] [address] 11/17/2011 00:00:00 [id number] autoEComm erce [address] [facility] [address] [place] [address] 11/17/2011 00:00:00 [id number] auto[facility]Comm erce [address] [facility],[address] [place] [address] 03/17/2012 00:00:00 [id number] auto[facility] er[facility] [address] [place] [address] 03/17/2012 00:00:00 [id number] [facility] [address] [place] [address] 03/17/2012 00:00:00 [id number] [facility] [address] [place] [address] 05/11/2012 00:00:00 [id number] auto[facility]Comm erce [address] [place] [address] 06/24/2012 00:00:00 [id number] auto[facility]Comm erce [address] [place] [address] 06/24/2012 00:00:00 [id number] auto[facility]Comm erce [address] [facility] [address] [place] [address] 06/24/2012 00:00:00 [id number] autoEComm erce [address] [facility] [address] [place] [address] 07/24/2012 00:00:00 [id number] auto[facility] erce [address] [place] [address] 07/24/2012 00:00:00 [id number] autoEComm erce [address] [facility] [address] [place] [address] 07/24/2012 00:00:00 [id number] autoEComm erce [address] [place] [address] 07/24/2012 00:00:00 [id number] auto[facility]Comm erce [address] [place] [address] 11/09/2012 00:00:00 [id number] autoEComm erce [address] [place] [address] 11/09/2012 00:00:00 [id number] autoEComm erce [address] [place] [address] 03/29/2013 00:00:00 [id number] autoEComm erce [address] [place] [address] 03/29/2013 00:00:00 [id number] autoEComm erce [address] [place] [address] 03/29/2013 00:00:00 [id number] autoEComm erce [address] [place] [address] 05/31/2013 00:00:00 [id number] autoEComm erce [address] [place] [address] 05/31/2013 00:00:00 [id number] autoEComm erce [address] [place] [address] 05/31/2013 00:00:00 [id number] auto[facility]Comm erce [address] [place] [address] 05/31/2013 00:00:00 [id number] autoEComm erce [address] [place] [address] 10/10/2013 00:00:00 [id number] auto[facility]Comm erce [address] [place] [address] 10/10/2013 00:00:00 [id number] autoEComm erce [address] [place] [address] 10/10/2013 00:00:00 [id number] autoEComm erce [address] [place] [address] 10/10/2013 00:00:00 [id number] autoEComm erce [address] [place] [address] 11/15/2013 00:00:00 [id number] autoEComm erce [address] [place] [address] 11/15/2013 00:00:00 [id number] autoEComm erce [address] [place] [address] 11/15/2013 00:00:00 [id number] autoEComm erce [address] [place] [address] 11/15/2013 00:00:00 [id number] autoEComm erce [address] [facility] [address] [place] [address] 12/01/2006 00:00:00 [id number] autoEComm erce [address] [place] [address] 12/01/2006 00:00:00 [id number] autoEComm erce [address] [facility] [address] [place] [address] 12/01/2006 00:00:00 [id number] autoEComm erce [address] [facility],[address] [place] [address] 12/15/2006 00:00:00 [id number] autoEComm erce [address] [facility],[address] [place] [address] 05/06/2007 00:00:00 [id number] autoEComm erce [address] [facility] [address] [place] [address] 05/06/2007 00:00:00 [id number] autoEComm erce [address] [facility],[address] [place] [address] 08/05/2007 00:00:00 [id number] autoEComm erce [address] [facility] [address] [place] [address] 08/05/2007 00:00:00 [id number] autoEComm erce [address] [facility] [address] [place] [address] 08/05/2007 00:00:00 [id number] auto[facility]Comm erce [address] [facility],[address] [place] [address] 11/02/2007 00:00:00 [id number] autoEComm erce [address] [place] [address] 11/19/2007 00:00:00 [id number] autoEComm erce [address] [place] [address] 11/19/2007 00:00:00 [id number] autoEComm erce [address] [place] [address] 11/19/2007 00:00:00 [id number] autoEComm erce [address] [place] [address] 11/19/2007 00:00:00 [id number] auto[facility]Comm erce [address] [facility] [address] [place] [address] 12/03/2007 00:00:00 [id number] autoEComm erce [address] [facility] [address] [place] [address] 12/03/2007 00:00:00 [id number] auto[facility]Comm erce [address] [facility] [address] [place] [address] 12/03/2007 00:00:00 [id number] autoEComm erce [address] [facility],[address] [place] [address] 12/03/2007 00:00:00 [id number] autoEComm erce [address] [facility] [address] [place] [address] 01/28/2008 00:00:00 [id number] autoEComm erce [address] [facility],[address] [place] [address] 01/28/2008 00:00:00 [id number] autoEComm erce [address] [facility],[address] [place] [address] 01/28/2008 00:00:00 [id number] autoEComm erce [address] [facility] [address] [place] [address] 02/01/2008 00:00:00 [id number] autoEComm erce [address] [facility],[address] [place] [address] 05/30/2008 00:00:00 [id number] autoEComm erce [address] [place] [address] 05/30/2008 00:00:00 [id number] autoEComm erce [address] [place] [address] 05/30/2008 00:00:00 [id number] auto[facility]Comm erce [address] [place] [address] 05/30/2008 00:00:00 [id number] auto[facility]Comm erce [address] [place] [address] 08/29/2008 00:00:00 [id number] autoEComm erce [address] [place] [address] 08/29/2008 00:00:00 [id number] autoEComm erce [address] [facility],[address] [place] [address] 08/29/2008 00:00:00 [id number] autoEComm erce [address] [facility],[address] [place] [address] 08/29/2008 00:00:00 [id number] autoEComm erce [address] [facility] [address] [place] [address] 03/20/2009 00:00:00 [id number] autoEComm erce [address] [facility],[address] [place] [address] 03/20/2009 00:00:00 [id number] autoEComm erce [address] [facility] [address] [place] [address] 03/20/2009 00:00:00 [id number] autoEComm erce [address] [facility] [address] [place] [address] 03/20/2009 00:00:00 [id number] autoEComm erce [address] [facility],[address] [place] [address] 07/11/2009 00:00:00 [id number] autoEComm erce [address] [place] [address] 07/11/2009 00:00:00 [id number] autoEComm erce [address] [facility],[address] [place] [address] 07/11/2009 00:00:00 [id number] autoEComm erce [address] [facility],[address] [place] [address] 12/18/2009 00:00:00 [id number] Aleida Van RN Main Office [address] [facility] [address] [place] [address] 02/24/2014 15:25:31 02/24/2014 16:22:20 Diabetes mellitus 59822721 Urine shows 3+ glucose but neg ketones. FSBS 364. Discussed with Dr. Patel. Will administer 6 units humalog insulin in the office. PatieNt will check her sugar when she gets home and she will ensure she is drinking lots of fluids, decreasing carb intake and taking her meds as prescribed . F/i with Dr. Muse as scheuled on 03/02/14. Essential hypertension 10823259 [id number] Dyan Braun [place] Main Office [address] [address] [place] [address] 04/19/2014 12:44:50 04/19/2014 13:33:59 Acute vaginitis 09832581 Vaginitis, on flagyl and levaquin improved, no residual rash at this time. 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 Follow-up encounter 943422366 Essential hypertension 12246941 Diabetes mellitus 64494489 Has been seeing Dr. Muse , has f/u scheduled in July, she states her DM meds were changed in the hospital and her sugars have been higher than normal, she will call Dr. Muse 's office to ask about meds and inform of sugars. [id number] [facility] Main Office [address] [facility] [address] [place] [address] 05/29/2014 11:23:28 05/29/2014 12:09:24 Essential hypertension 29836279 Obesity 515496418 Renal diso rder due to type 2 diabetes mellitus 851061454 Degenerati on of lumbosacral intervertebral disc 28550883 Hyperlipidemia 86020885 [id number] Kevin Henry Main Office [address] [address] [place] [address] 11/16/2014 12:38:15 11/16/2014 13:41:48 Adult health examination 436858268 Major depr essive disorder 645078215 I offered pt support/ she can contract for safety and has numerous supports. Phone call placed/mes ernie left to [place] [facility] Therapist Vanessa/ I will d/w therapist the new issue for pt of fibromyalg ia and worsening depression and make a plan w/ mental health staff Renal diso rder due to type [address] Vincent Caro manages Essential hypertension 25962985 [id number] [facility] Main Office [address] [address] [place] [address] 03/20/2015 15:28:47 03/20/2015 16:09:41 Pain in pelvis 43458993 R10.2 Pain is resolving. Pt. is advised to take Motrin 200 mg 2 po BID for few days with food. Recheck CBC due to mild leukocytos is. All testing in the ER was unremarkab le. Leukocytosis [id number] D 72.829 Steatosis of liver 02881 1007 K76.0 Liver steatosis linked to uncontrole d DM and obesity. Pt. was recommende d to loose weight via low gertrude diet and daily exercise activity. [id number] [facility] Main Office [address] [address] [place] [address] 05/24/2015 13:00:22 05/24/2015 14:12:21 Degeneration of lumbosacral intervertebral disc 61285399 M51.37 Shoulder joint pain 2679 52620 M25.512 Chronic pain 74336825 G8 9.29 I had a discussion w/ pt re risks of opiates. Pt agrees and is aware of risks of opiates. I agree w/ use of steroids despite the effects on blood sugars Major depr essive disorder 237235301 F32.9 I offered pt support/ she can contract for safety and has numerous supports. Phone call placed/mes ernie left to [facility] Vanessa/ I will d/w therapist the new issue for pt of fibromyalg ia and worsening depression and make a plan w/ mental health staff Renal diso rder due to type 2 diabetes mellitus 7[address]39 E11.29 Dr Vincent Caro manages [id number] Kevin evans Main Office [address] [address] [place] [address] 07/03/2015 08:40:32 07/03/2015 09:28:06 Constipation 91417600 K59.00 pt using fiber and fluids and colace prn Chronic pain 67401922 G8 9. I had a discussion w/ pt re risks of opiates. Pt agrees and is aware of risks of opiates. 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 WIll modify or possibly d/c abx depending on culture results. Pt advised to call with persistent or worsening symptoms or with any medication problems. Renal diso rder due to type 2 diabetes mellitus 534276752 E11.22 [id number] Kevin evans Main Office [address] [address] [place] [address] 11/06/2015 11:15:55 11/06/2015 12:11:54 Edema of the upper extremity 560152580 R60.0 we will get labs from Endo and pt may need to see nephrology . she will take ONLY irbesartan and will wean down on gabapentin dose Major depr essive disorder 215795174 F33.9 I offered pt support/ she can contract for safety and has numerous supports. Phone call placed/anyaeli klein left to [facility] , Vanessa Samano/ I will d/w therapist the new issue for pt of fibromyalg ia and worsening depression and make a plan w/ mental health staff Essential hypertension 77973275 I10 Chronic pain 55967288 G8 929 I had a discussion w/ pt re risks of opiates. Pt agrees and is aware of risks of opiates. I agree w/ use of steroids despite the effects on blood sugars [id number] Kevin evans Main Office [address] [address] 12/14/2015 13:25:51 12/14/2015 14:48:40 Adult health examination 623106281 Z00.00 Renal diso rder due to type 2 diabetes mellitus 206496699 E11.[address] Vincent Caro manages Degenerati on of lumbosacral intervertebral disc 91566698 M51.37 Chronic pain 40892521 G8 929 I had a discussion w/ pt re risks of opiates. Pt agrees and is aware of risks of opiates. I agree w/ use of steroids despite the effects on blood sugars Major depr essive disorder 809833778 F33.9 I offered pt support/ she can contract for safety and has numerous supports. Phone call placed/anayeli klein left to [facility] , Vanessa Samano/ I will d/w therapist the new issue for pt of fibromyalg ia and worsening depression and make a plan w/ mental health staff [id number] Kevin evans Main Office [address] [address] 05/16/2016 14:15:45 05/16/2016 15:50:32 Neck pain 50751913 M54.2 chronic, ongoing issue for patient, she [...] ice as needed. Major depr essive disorder 948951402 F32.9 Hx MDD, and she states she did threaten SI at one point due to fear of having meds discontinu ed. She was dismissed from [facility] due to this and is awaiting Pain management appt. [id number] Shellie Chapman Main Office [address] [facility] [address] [facility] [place] [address] 08/21/2016 08:46:41 08/21/2016 09:49:52 Chronic pain 27050814 G89.29 I had a discussion w/ pt re risks of opiates. Pt agrees and is aware of risks of opiates. I agree w/ use of steroids despite the effects on blood sugars Chronic ki dney disease stage 1 133920077 N18.1 Renal diso rder due to type 2 diabetes mellitus 713977517 E11.22 Dr Vincent Caro manages Hyperlipidemia 27229404 E78.5 Tobacco de pendence syndrome 80044942 F17.290 Chronic pain syndrome 37 4495165 G89.4 Hypertensi ve renal disease 76906897 I12.9 [id number] Kevin evans Main Office [address] [facility] 207 [facility] [place] [address] 09/19/2016 10:36:47 09/19/2016 11:34:36 Dysuria 41044700 R30.0 SYMPTOMS: burning with urination? {{yes* no} [...] anot her medication (provider will prescribe) NA}} [id number] Kevin Henry nathan Main Office [address] [address] [place] [address] 09/26/2016 16:26:36 09/26/2016 17:08:20 [id number] Kevin Henry nathan Main Office [address] [address] [place] [address] 09/30/2016 10:13:28 09/30/2016 10:53:18 Urinary tract infectious disease 81855603 N39.0 resolved, took full course of abx Urinary incontinence 165 213400 R32 seeing urogyn today at 2:40 in follow-up and for eval of incontinen ce Uncontroll ed type 2 diabetes mellitus 074561783 E11.65 Seeing endocrinol PAIGE love 277 this am, continue meds as directed. Essential hypertension 10602745 I10 BP well controlled , continue emds as directed Acute vaginitis 81137822 N76.0 recently on 3 abx, feels may be getting a yeast infection, has a script for fluconazol e, will fill as needed. [id number] Kevin Leikrista evans Main Office [address] [address] [place] [address] 01/06/2017 14:04:42 01/06/2017 15:24:15 Lumbar radiculopathy 206540364 M54.16 Heat 4 times daily x 20 mins at a time, XRs today, meloxicam once daily as directed with food, methocarba mol TID as needed, tylenol #3 for 3 days only as needed. No driving or alcohol with meds. Gentle stretching as tolerated, may need PT and referral if sx persist. [id number] Kevin Leikrista evans Main Office [address] [address] [place] [address] 02/19/2017 09:25:09 02/19/2017 10:09:46 Needs influenza immunization 921293116 Z23 Urinary incontinence 165 993316 R32 [id number] Kevin Leikrista evans Main Office [address] [address] [place] [address] 08/03/2017 09:45:53 08/03/2017 10:34:19 Adult health examination 457928607 Z00.00 Screening for malignant neoplasm of breast 082015463 Z12.39 Screening for malignant neoplasm of cervix 376751544 Z12.4 Administra tion of viral vaccine 94809364 Z23 Eczema 06125190 L30.9 Uncontroll ed type 2 diabetes mellitus 013789881 E11.65 Major depr essive disorder 975264714 F33.9 pt feels safe and is stable w/ mental health support [id number] Main Office [address] [facility] [address] [place] [address] 11/16/2017 08:53:08 11/16/2017 10:19:36 Uncontrolled type 2 diabetes mellitus 606141416 E11.65 Diabetes slowly improving but not at goal. Recommend to see endo every [address] Will repeat all labs fasting. Pt. will f/u with endo as scheduled and with nutrionist . Renal diso rder due to type 2 diabetes mellitus 230384752 E11.22 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 251451259 E11.49 stale neuropathy on Lyrica. RX written by pain management ( [facility]). Hyperlipidemia 35856032 E78.00 Continue current meds and low fat diet. Repeat fasting lipids. Essential hypertension 31076296 I10 Stable HTN> Continue current meds and repeat labs as recommende d. Major depr essive disorder 048026362 F32.9 F/u with psych continue current meds. 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 Tobacco user 293039893 Z 72.0 Body mass index 30+ - obesity 827054228 E66.01 Z68.35 Chronic ki dney disease stage 1 730176215 N18.1 Health Concerns Section Related Observation LastModified by Organization Detai ls LastModified Time None Recorded Concern Status LastModified by Organization Details LastModified Time None Recorded Advance Directives Directive N: Payers Encounter Date Sequence Insurance Name Policy Number Policy Cordero Covered Member ID Cordero Member ID Guarantor Name 09/30/2016 1 [place]: [employer] Estefania Buck [id number] Estefania Buck 09/30/2016 2 MED[place]ID-[place] [facility] Estefania hurtado [id number] Estefania Buck 01/06/2017 1 [place]: [employer] Mabeline Quick Buck [id number] Mabeline Quick Buck 01/06/2017 2 [place] [facility] Mabmaxine Quick-Va zquez [id number] Mabeline Quick Buck 02/19/2017 1 [place]: [employer] Mabeline Quick Buck [id number] Mabeline Quick Buck 02/19/2017 2 [place] Mabeline Quick-Va zquez [id number] Mabeline Quick Buck 08/03/2017 1 MEDICARE B-[place]: [employer] Mabeline Quick Buck [id number] Mabeline Quick Buck 08/03/2017 2 [place] [facility] Mabeline Quick-Va zquez [id number] Mabeline Quick Buck 11/16/2017 1 MED[place]ARE [place]: [employer] Mabeline Quick Buck [id number] Nicolaseline Quick Buck 11/16/2017 2 [place] [facility] Estefania Quick-Va zquez [id number] Nicolaseline Quick Buck Notes Date Note Type Note Provider Name and Address Organization Details Recorded Time 09/30/2016 text/html Hospitalization Contact RecordReported bypatient.Follow UpHospital[facility]; admit date: (Please enter in [...] DM and endocrine is sending her to [place] for [place] test as she cannot take [...] renal and neurologic manifestations. Sees endo at [facility] and is currently on V-Go pump and CGM with [employer] Joanne. A!c today is improved at 10.0% from 11.3% on last visit with endo . PT. has almaz for f/u. PT. has neuropathy. Does ot currently see enrollment services vice president. Overdue for diabetic eye exam. REports no vision changes.Major depression. Sees psych and counselor in [place]. On Citalopram 20 mg and Zolpidem for [...]
== END 2024-08-25 15:30 | disposition home or self-care (01) ==
LOC: HO.PMC 14:30
PROVIDERS: PCP Family Medicine; Visit Provider Nurse Practitioner Family
DX: E11.40 Type 2 diabetes mellitus with diabetic neuropathy, unspecified (principal); Z98.890 Other specified postprocedural states; M79.641 Pain in right hand; M79.642 Pain in left hand
CPT/HCPCS: 17999; 99214

== ENCOUNTER → 2024-08-25 14:30 | Outpatient (BNVA) | payer OTHER, SELFPAY | PROVIDERS: PCP Family Medicine; Visit Provider Nurse Practitioner Family | DX: E11.40 Type 2 diabetes mellitus with diabetic neuropathy, unspecified (principal); M79.641 Pain in right hand; M79.642 Pain in left hand; Z98.890 Other specified postprocedural states | CPT/HCPCS: 17999; 99212; J7336 ==

== ENCOUNTER 2024-11-24 14:35 | Outpatient (AMB) | payer OTHER, SELFPAY ==
--- NOTE | 2024-11-24 14:40 | MHC.OFFVIS ---
Vital Signs 11/24/24 14:45 11/24/24 15:13 11/24/24 15:33 Height 5 ft 6 in Weight 245 lb 6 oz BMI 39.6 BP 142/96 H 168/77 H 176/85 H Blood Pressure Location Lt brachial Lt brachial Lt brachial Position Sitting Sitting Sitting Pulse 104 H 97 97 Pulse Source Pulse Oximeter Pulse Oximeter Pulse Oximetry (%) 98 Oxygen Delivery Method Room Air Comment 15 mins after Qutenza application 30 mins after qutenza application Intake Visit Reasons: QUTENZA Sign Manufacturer Required: No Accompanied by: Self / Same As Patient Allergies amoxicillin (AMOXICILLIN) Allergy (Severe, Verified 11/24/24 14:46) ANAPHYLAXIS exenatide (From BYETTA) Allergy (Severe, Verified 11/24/24 14:46) ANAPHYLAXIS insulin detemir (From LEVEMIR U-100 INSULIN) Allergy (Severe, Verified 11/24/24 14:46) SORE THROAT insulin glargine (From LANTUS U-100 INSULIN) Allergy (Severe, Verified 11/24/24 14:46) YEAST INFECTION insulin glulisine (From APIDRA U-100 INSULIN) Allergy (Severe, Verified 11/24/24 14:46) UNKNOWN insulin regular (From NOVOLIN R REGULAR U-100 INSULN) Allergy (Severe, Verified 11/24/24 14:46) MUSCLE PAIN lisinopril Allergy (Severe, Verified 11/24/24 14:46) Cough penicillin V Allergy (Severe, Verified 11/24/24 14:46) Rash pioglitazone (From ACTOS) Allergy (Severe, Verified 11/24/24 14:46) HIVES insulin isophane (NPH) (From HUMULIN N NPH U-100 INSULIN) Allergy (Intermediate, Verified 11/24/24 14:46) YEAST INFECTION duloxetine (From CYMBALTA) Allergy (Unknown, Verified 11/24/24 14:46) UNKNOWN tizanidine Adverse Reaction (Severe, Verified 11/24/24 14:46) Anxiety HPI Comments Details: The patient is a 59-year-old female presenting topical 8% capsaicin application for chronic painful diabetic neuropathy and follow up for exacerbation of low back pain. Her insulin levels are reportedly better-controlled, with an A1c of 8.1, decrease from A1C of 11 previously. She has been on insulin coverage and Monjaro. The patient reports exacerbation of her low back pain, which has been persistent and severe enough to interfere with her daily activities. She previously underwent radiofrequency ablation (RFA) a year ago, which provided relief for 8-9 months, but the pain has since returned. Additionally, she had sacroiliac joint injections that provided one week of complete pain relief. Patient is interested to repeat lumbar medial branch RFA for predominantly axial low back pain. Denies any recent cough, cold, infection, fever or any other significant changes in medical history since last office visit. Denies any changes to medications, medical history or recent hospitalizations. Past Procedures: 08/25/24: 4th Qutenza application for DPN 03/08/24: Bilateral Diagnostic SIJ injections-100% ongoing pain relief >1 week 11/13/23: Bilateral L3-L4-L5 MB RFA-75% ongoing pain relief 08/11/23: Diagnostic Bilateral L3-L4 DR L5 MBB-80-85% pain relief for 12 hours 08/10/23: 3rd Qutenza application for DPN 06/30/23: Diagnostic Bilateral L3-L4 DR L5 MBB-80% pain relief for 6.5 hours, ongoing 70% pain relief 05/15/23: 2nd Qutenza application for DPN 02/12/23: 1st Qutenza application for DPN PRIOR: Patient is a 57 year old female with prior history of chronic low back pain, pinched nerve L5, lumbar DDD, MARIAM, uncontrolled DM, PAD, peripheral neuropathy, anxiety, depression and former smoker, presents today for evaluation of low back pain with right sided radiculopathy. Patient was followed in the past by [facility] for low back pain and received multiple back injections with good results. She attributes her most recent radicular symptoms due to a mechanical fall in October. She accidentally hit a chair with her walker and fell onto her right side. Reports pain in her lower back pain with radiation into her right buttock, lateral hip and down to the lower leg posteriorly and laterally with cramping in her right calf, numbness and burning pain in both feet. Denies any bladder or bowel dysfunction or saddle anesthesia. Patient reports bilateral lower extremity weakness, uses cane with ambulation. Recent lumbar spine MRI is noted below. Patient is not candidate for therapeutic spine injections due to elevated A1C, nor does she want to be evaluated by Neurosurgery as she is not interested in back surgery. Reports history of overdose on oxycodone-acetaminophen due to forgetfulness and taking double dose, which required hospitalization per patient in 2016. She sees mental therapist for anxiety and depression. Reports she quit smoking on 01/14/23 and takes Nicotine lozenges for craving. Reports increased snacking and eating since quitting. 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 Receives daily FITNESS MANAGEMENT DIRECTOR services. Current blood sugar per Dexicomp reads 184. Patient reports most recent A1C was over 10. She follows Dr. Medina Muse at [facility]. Reports right great toenail removed in 2019. Patient requests referral to Podiatry provider as she has not seen one in several years. Location Back pain radiates down right leg posteriorly Duration Chronic pain for many years, progressively worsening Characteristics of symptom or complaint Aching, burning, shooting, stabbing, numbness Aggravating or associated factors Walking, sitting, climbing and descending stairs, movements, weather change Relieving factors Tylenol, Percocet, morphine, gabapentin Treatment PT- increased pain, injections- [facility]-good relief PFSH Medical History Tennis elbow MARIAM (obstructive sleep apnea) Vitamin D deficiency Familial hirsutism Hyperlipidemia Microalbuminuria Hypertension Depression Anxiety Hypercholesterolemia Type 2 diabetes mellitus with peripheral neuropathy Lumbar radiculopathy Right leg pain Surgical History Previous back surgery History of carpal tunnel release Hx of tubal ligation Family History Mother Hypertension Diabetes Father Hypertension Social History Household Members Other:: lives only, but has a FITNESS MANAGEMENT DIRECTOR daily Are you a primary personal care home administrator to a significant other at home: No Do you presently have visiting nurse or other home services: No Alcohol intake: never Patient Tobacco Use Status: Former Tobacco user Tobacco use type: Cigarette Years Smoked: 40 Review of Systems Const All systems reviewed & are unremarkable except as noted in HPI and below Physical Exam Vital Signs: Last Vital Signs Pulse 97 11/24/24 15:13 BP 168/77 H 11/24/24 15:13 Pulse Ox 98 11/24/24 14:45 Oxygen Delivery Method Room Air 11/24/24 14:45 BMI result Body Mass Index 39.6 General: Appears afebrile. Alert and oriented. Mood and affect appropriate. Follows and participates in conversation appropriately. Respiratory effort is unlabored. No cough. Able to transition from sit to stand unassisted. Uses cane with ambulation. Ambulates with bilaterally normal heel strike and toe off. General: Yes no CVA tenderness Back/Spine/Pelvis Other: Limited lumbar spine ROM due to pain. Positive facet loading bilaterally. Lumbar extension reproduces moderate pain, whereas flexion and bending reproduces mild symptoms. Back: no CVA tenderness Cervical Spine: cervical ROM normal, cervical muscular tenderness and No Cervical spine tenderness Thoracic/Lumbar Spine: thoracic and lumbar spine normal to inspection, No Thoracic/lumbar spine scar(s), Lasegue's sign negative, straight leg raise negative bilaterally, pain with thoraco-lumbar ROM, paraspinal muscle tenderness, thoraco-lumbar ROM limited, No thoracic spinal tenderness and lumbar spinal tenderness at L3, at L4 and at L5 Sacroiliac joints: bilaterally (+Stanley's) tender to palpation Extrem Other: There is decreased sensation over the soles of the feet and the toes. No breaks in the skin. No soft tissue swelling, no redness or warmth. +2 pedal pulses bilaterally. Reports numbness, tingling and burning in both feet. General: Yes capillary refill normal, Yes no clubbing, cyanosis or edema and Yes no calf tenderness Office Procedures Topical Capsaicin Date 1:: 08/25/24 Laterality: Bilateral Location of left foot pain: Anterior, Posterior, Plantar, Proximal, Dorsal, Medial, Lateral and Distal Location of right foot pain: Anterior, Posterior, Plantar, Proximal, Dorsal, Medial, Lateral and Distal Quality of pain: Aching, Nagging, Burning, Gnawing, Numb-like and Tiring Details:: Two patches, 560 cm2 were utilized per each foot. EMLA Cream (lidocaine 2.5% and prilocaine 2.5%) was applied at home by patient prior to application of the patches. The patient tolerated the procedure well. Patient?s vitals signs remained stable throughout the procedure. Patient was able to complete the stipulated 30 minutes of the therapeutic application without any discomfort. Office [facility] capsaicin-skin cleanser 8 % topical kit Performing Provider: GABRIELA Goel Performing Location: [facility] Administered by: GABRIELA Goel on 11/24/24 14:55 Dose Route Admin Location Dispensed Lot Number Expiration Date [employer] Charter Clerk 4 ea topical C [facility] 4 ea [id number] 02/01/26 81723-545-93 [employer] Total Dispensed Waste 4 ea 0 % Results Reviewed Results Reviewed: CT/CT abdomen pelvis w IV con 11/13/22 OSSEOUS STRUCTURES: Degenerative changes are noted in the spine. Assessment & Plan Assessment & Plan (1) Chronic painful diabetic neuropathy: Code(s): E11.40 - Type 2 diabetes mellitus with diabetic neuropathy, unspecified Category: Medical (2) Chronic painful diabetic neuropathy: Code(s): E11.40 - Type 2 diabetes mellitus with diabetic neuropathy, unspecified (3) Lumbar degenerative disc disease: Code(s): M51.36 - Other intervertebral disc degeneration, lumbar region Category: Medical (4) Lumbar spondylosis: Code(s): M47.816 - Spondylosis without myelopathy or radiculopathy, lumbar region Category: Medical (5) Chronic low back pain without sciatica: Code(s): M54.50 - Low back pain, unspecified; G89.29 - Other chronic pain Category: Medical Plan Patient is status post application of topical capsaicin 8% for chronic diabetic peripheral neuropathy in bilateral feet. Patient tolerated the procedure without significant discomfort without application of EMLA cream prior to the procedure and elected to proceed with Qutenza. She was discharged home in stable condition with discharge instructions. Schedule bilateral L3-L4 DR L5 medial branch RFA with sedation and fluoroscopy. Expectations, risks and benefits were reviewed. Patient is aware she will be contacted to schedule this procedure. All questions and concerns have been answered and patient agreed with the plan. Follow up after lumbar RFA and sooner as needed. Patient was informed and verbally consented to the use of an ambient scribe for clinic note documentation during this visit. Greater than 43 minutes were spent in therapeutic application, documentation, chart review and in coordination of the care. Orders: Orders AMB Capsaicin Patch - Practice Supplied Today E11.40 - Type 2 diabetes mellitus with diabetic neuropathy, unspecified Coding Level of Care Code Est Pt Level 4 (99707) Complex EM visit Add On G2211 Diagnoses Chronic painful diabetic neuropathy E11.40 Lumbar degenerative disc disease M51.36 Lumbar spondylosis M47.816 Chronic low back pain without sciatica M54.50; G89.29
[2024-11-24 14:45] VITALS: BP 142/96; PULSE 104; O2SAT 98; BMI 39.6
--- OUTSIDE RECORDS SUMMARY | 2024-11-24 14:46 | XMS_ITS ---
Author Name [facility] Organization Unknown Care Team Organization Name Specialty Phone Email Start Date End [facility] 12/31/2022 [facility] 04/04/2022
--- OUTSIDE RECORDS SUMMARY | 2024-11-24 14:46 | XMS_ITS | Clinical Summary ---
Author Organization Patient Business Ser [facility] Address [address] [place] [address] Care Team Providers Care Purchasing Analyst Name Role Phone Zoraida Li MD Primary Care Provider Social History Tobacco Use Types Packs/Day Years Used Date Smoking Tobacco: Never Assessed Comments Unknown Sex and Gender Information Value Date Recorded Sex Assigned at Not on file Legal Sex Female 9:23 AM EDT Gender Identity Not on file Sexual Orientation [...] 2016 Zoster Vaccines (1 of 2) 2016 COVID-19 Vaccine (2023-2 5 season) 2024 Depression Screening 05/04/2024 Colorectal Cancer Screening: Colonoscopy 09/09/2024 HIV Screening 09/09/2024 Hepatitis C Screening 09/09/2024 Social Influencers of Health Screening 09/09/2024 Influenza Vaccine (#1) 2025 HIB Vaccines Aged Out No longer [...] age to complete this topic Care Teams Purchasing Analyst Relationship Specialty Start Date End Date Zoraida Li MD PCP - General 04/04/22
--- OUTSIDE RECORDS SUMMARY | 2024-11-24 14:46 | XMS_ITS | Clinical Summary ---
Author Organization [facility] Address [address] [place] [address] Care Team Providers Care Street Sprinkler Name Role Phone Zoraida Li MD Primary Care Provider [phone] Allergies Active Allergy Reactions Criticality Noted Date [...] 94 04/04/2022 3:49 PM EST Temperature 36.4 C (97.6 F) 04/04/2022 3:49 PM EST Respiratory Rate 18 04/04/2022 3:49 PM EST [...] (1 of 2) 2016 Influenza Vaccine (#1) 2025 7, 01/23/2016, 03/03/2013, Additional history exists DTap / Tdap / Td (3 - Td or Tdap) 08/06/2027 08/05/2017, 02/01/2008 Pneumococcal Vaccine Aged Out 04/15/2014, 12/02/19 07 No longer eligible based on patient's age to complete this topic RSV Ped < 20 months Aged Out No longe r eligible based on patient's age to complete this topic Care Teams Street Sprinkler Relationship Specialty Start Date End Date Zoraida Li MD [address] [place] [id number] PCP - General Family Medicine 04/04/22
--- OUTSIDE RECORDS SUMMARY | 2024-11-24 14:46 | XMS_ITS | Data Portability ---
Author Organization ID - [facility], [facility] Address [address] [place] [address] Care Team Providers Care Cissp Name Role Phone JODY NOVAK Primary Care Provider [phone] Assessment Encounter Date Assessment Date Assessment LastModified by Organization Details LastModified Time 09/19/2024 09/19/2024 A/ L long trigge r finger, initial diagnosis P/ We discussed the pathophysiology of this problem and her treatment options. She is elected to try cortisone injection. This is performed to the left long finger flexor tendon sheath. She will follow-up if symptoms do not respond favorably to this injection. Questions asked and answered to her satisfaction. [email or web address] Not available 09/19/2024 15:11:11 Plan of Treatment Reminders Order Date Submit Date Provider Last Modified By Organization Details Last Modified Time Details Appointments None record ed. Lab None record ed. Referral None record ed. Procedures None record ed. Surgeries None record ed. Imaging None record ed. Medication Orders None record ed. Patient TargetsNo targets recorded. Patient InstructionsNo instructions recorded. Reason for Referral None Reported. Problems Name Problem SNOMED Code Status Onset Date Resolution Date Notes Provider Name and Address Organization Details Recorded Time No complaint s 376687376 Active Status: 'I'; Not Available [facility] 4 09:20:56 Impingeme nt syndrome of left shoulder region 939598860788 104 Active 2012 Status: 'A'; Not Available [facility] 4 11:43:31 Trigger finger of right hand 480200377668 21907 Active 2018 Problem Code: M65.331; Problem Code Type: ICD-10; Status: 'A'; Not Available [facility] 4 11:43:31 Problem Notes None recorded. Procedures Surgical History Date Name Laterality Status Provider Name and Address Organization Details Recorded Time 5 Trigger Finger Kenalog Injection completed Gemma Sylvester MD [address] [place] [address] [address], [place], [address], [facility] 09/19/2024 15:11:35 Imaging Results None recorded. Procedure Notes None recorded. Medical Equipment None Reported. Allergies Allergen ID Allergen Name Allergen Category Reaction Reaction Severity Criticality Documentation Date Start Date Code Code System Note Provider Name and Address Organization Details Recorded Time 563053 Product containin g penicilli n (product) medicatio n Not available Not available Not available 07/06/20232012 48434 8001 SNOMED Aller gyRea ction : 'Skin React ion'; Not Available [facility] 4 16:01:10 222269 Cymbalta medicatio n Not available Not available Not available 07/06/20232014 13350 4 RxNorm Aller gyNam e: 'Cymb estuardo Cpep' ; Not Available [facility] 4 16:01:11 484951 Cipro medicatio n Not available Not available Not available 07/06/20232014 60862 3 RxNorm Not Available [facility] 4 16:01:11 675013 Byetta medicatio n Not available Not available Not available 09/19/2024 82138 1 RxNorm MILADY KAI cholo, [facility] 5 14:58:28 784887 Lantus medicatio n Not available Not available Not available 09/19/2024 66770 1 RxNorm MILADY KAI cholo, [facility] 5 14:58:37 Medications Name Sig Start Date Stop Date Status Note LastModified by Organization Details LastModified Time fluoxetine 40 mg capsule TAKE 1 CAPSULE BY MOUTH EVERY DAY IN THE MORNING active Not Available Not Available No t Available methocarbam ol 500 mg tablet TAKE 1 TABLET BY MOUTH TWICE A DAY FOR MUSCLE SPASMS active Not Available Not Available No t Available metformin 500 mg tablet TAKE 2 TABLETS BY MOUTH TWICE DAILY. active Not Available Not Available No t Available atorvastati n 20 mg tablet TAKE 1 TABLET BY MOUTH EVERY DAY active Not Available Not Available No t Available tizanidine 2 mg tablet TAKE 1 TABLET BY MOUTH EVERY 8 HOURS NEEDED FOR MUSCLE SPASM FOR 30 DAYS active Not Available Not Available No t Available glipizide ER 10 mg tablet, extended release 24 hr TAKE 1 TABLET BY MOUTH 2 TIMES A DAY BEFORE MEALS. active Not Available Not Available No t Available clindamycin HCl 150 mg capsule TAKE 1 CAPSULE BY MOUTH FOUR TIMES A DAY active Not Available Not Available No t Available aspirin 81 mg tablet,zachary yed release TAKE 1 TABLET BY MOUTH EVERY DAY. active Not Available Not Available No t Available tramadol 50 mg tablet TAKE 1 TABLET ORALLY EVERY 12 HOURS NEEDED FOR PAIN FOR 10 DAYS active Not Available Not Available No t Available lidocaine-p rilocaine 2.5 %-2.5 % topical cream 1 APPLICATI ON TOPICALLY ONCE FOR PAIN. APPLY TO BOTH FEET 15-30 MIN PRIOR TO QUTENZA active Not Available Not Available No t Available gabapentin 800 mg tablet TAKE 1 TABLET BY MOUTH THREE TIMES A DAY active Not Available Not Available No t Available dorzolamide 22.3 mg-timolol 6.8 mg/mL eye drops INSTILL 1 DROP INTO BOTH EYES TWICE A DAY active Not Available Not Available No t Available hydroxyzine HCl 25 mg tablet TAKE 1-2 TABLET BY MOUTH EVERY NIGHT AT BEDTIME active Not Available Not Available No t Available zolpidem 10 mg tablet TAKE 1 TABLET BY MOUTH EVERYDAY AT BEDTIME active Not Available Not Available No t Available losartan 100 mg tablet TAKE 1 TABLET BY MOUTH EVERY DAY. active Not Available Not Available No t Available fluoxetine 20 mg capsule TAKE 1 CAPSULE BY MOUTH EVERY DAY IN THE MORNING active Not Available Not Available No t Available oxycodone 5 mg tablet TAKE 1 TABLET BY MOUTH EVERY 6 HOURS NEEDED FOR PAIN active Not Available Not Available No t Available Novolog FlexPen U-100 Insulin aspart 100 unit/mL (3 mL) subcutaneou s INJECT 80 UNITS UNDER THE SKIN 3 (THREE) TIMES A DAY WITH MEALS. active Not Available Not Available No t Available Avalide Avalide 150-12.5M G Tablet 2012 active Statu s: 'Curr ent'; Not Available Not Available Not Available hydrochloro thiazide 12.5 mg tablet TAKE 1 TABLET BY MOUTH EVERY DAY IN THE MORNING FOR 90 DAYS active Not Available Not Available No t Available oxycodone 10 mg tablet TAKE 1 TABLET BY MOUTH TWICE A DAY NEEDED FOR PAIN SCALE 7-10 FOR 10 DAYS active Not Available Not Available No t Available oxycodone HCl-oxycodo ne-ASA oxyCODONE HCl 5MG Tablet 02/20 completed Statu s: 'Disc ontin ued'; Not Available Not Available Not Available Gavilax 17 gram/dose oral powder TAKE 1 SCOOP MIXED WITH 8 OUNCES OF FLUID BY MOUTH ONCE A DAY FOR 30 DAYS active Not Available Not Available No t Available Humalog KwikPen U-200 Insulin 200 unit/mL (3 mL) subcutaneou s INJECT 80-100 UNITS UNDER THE SKIN 3 (THREE) TIMES A DAY BEFORE MEALS. active Not Available Not Available No t Available Tresiba FlexTouch U-200 insulin 200 unit/mL (3 mL) subcutaneou s pen INJECT 100 UNITS UNDER THE SKIN DAILY. active Not Available Not Available No t Available FreeStyle Romana 3 Sensor device USE DIRECTED EVERY 14 DAYS active Not Available Not Available No t Available Vitals Date Recorded Body height Body mass index (BMI) Body weight Provider Name and Address Organization Details Last Updated DateTime 09/19/2024 167.64 cm 39.2 kg/m2 790283.95 g MILADY QUINN [place] - [place] [facility] 09/19/2024 14:58:12 Social History None recorded. Functional Status None recorded. Mental Status None recorded. Family History Nothing Reported. Medical History No medical history recorded. Gynecological HistoryNo gynecological history recorded. Obstetrics History GPAL:G 0 P 0 0 0 0 Past Encounters Encounter ID Performer Location Encounter Start Date Encounter Closed Date Diagnosis/Indication Diagnosis SNOMED-CT Code Diagnosis ICD10 Code Diagnosis Note [id number] MD JASON Huffman [address] [place] [address] 09/19/2024 14:26:42 09/20/2024 14:42:59 Triggering of digit [id number] M65.332 Health Concerns Section Related Observation LastModified by Organization Detai ls LastModified Time None Recorded Concern Status LastModified by Organization Details LastModified Time None Recorded Advance Directives Directive None Recorded Payers Insurance Date Sequence Insurance Name Policy Number Policy Cordero Covered Member ID Cordero Member ID Guarantor Name 09/19/2024 1 [facility] - DOS ON OR AFTER 2022 - ONE CARE (MEDICARE REPLACEMENT/ADV ANTAGE - HMO) Nicolasmaxine yeboah [id number] Estefania Buck Notes Date Note Type Note Provider Name and Address Organization Details Recorded Time 09/19/2024 text/html ROS as noted in the HPI 59 yo female known to me having undergone a left ring trigger finger release in 03/2022, here today for eval of left long trigger finger. She describes pain and locking in the left long finger. Gemma Sylvester MD [address] [place] [address] [address], [place], [address], [facility] [place] [facility] 09/19/2024 16:27:22 OBGyn Episode No OBEpisode recorded.
[2024-11-24 15:13] VITALS: BP 168/77; PULSE 97
[2024-11-24 15:33] VITALS: BP 176/85; PULSE 97
== END 2024-11-24 15:33 | disposition home or self-care (01) ==
LOC: HO.PMC 14:36
PROVIDERS: PCP Family Medicine; Visit Provider Nurse Practitioner Family
DX: E11.40 Type 2 diabetes mellitus with diabetic neuropathy, unspecified (principal); M51.369 Other intervertebral disc degeneration, lumbar region without mention of lumbar back pain or lower extremity pain; M47.816 Spondylosis without myelopathy or radiculopathy, lumbar region; M54.50 Low back pain, unspecified; G89.29 Other chronic pain
CPT/HCPCS: 17999; 99214

== ENCOUNTER → 2024-11-24 14:35 | Outpatient (BNVA) | payer OTHER, SELFPAY | PROVIDERS: PCP Family Medicine; Visit Provider Nurse Practitioner Family | DX: E11.40 Type 2 diabetes mellitus with diabetic neuropathy, unspecified (principal); G47.33 Obstructive sleep apnea (adult) (pediatric); E55.9 Vitamin D deficiency, unspecified; L68.0 Hirsutism; E78.5 Hyperlipidemia, unspecified; R80.9 Proteinuria, unspecified; I10 Essential (primary) hypertension; F32.A Depression, unspecified; F41.9 Anxiety disorder, unspecified; E78.00 Pure hypercholesterolemia, unspecified; M54.16 Radiculopathy, lumbar region; M51.360 Other intervertebral disc degeneration, lumbar region with discogenic back pain only; M47.816 Spondylosis without myelopathy or radiculopathy, lumbar region; Z87.891 Personal history of nicotine dependence | CPT/HCPCS: 17999; 99212; J7336 ==

== ENCOUNTER 2024-12-23 11:43 | Day surgery (SDC) | payer OTHER, SELFPAY ==
--- OUTSIDE RECORDS SUMMARY | 2024-12-20 14:10 | XMS_ITS | Encounter Summary ---
Author Organization [facility] Address [address] [facility] [address] [place] [address] Phone Care Team Providers Care Diamond Cleaver Name Role Phone Zoraida Li MD Primary Care Provider [phone] Reason for Referral * Consultation (Within 1 month) - New Request Specialty Diagnoses / Procedures Referred By Andrew prince Referred To Contact Diagnoses Type 2 diabetes mellitus with hyperglycemia, with long-term current use of insulin Gemma Jameson PA-C [address] [place] [address] Phone: tel: fax: [email or web address] Bang Miller, DO [address] [facility], [place] [address] Phone: tel: fax: [email or web address] Referral ID Status Reason Start Date Expiration Date V isits Requested Visits Authorized [id number] New Request 12/20/2024 12/20/2025 1 1 Reason for Visit * Reason Comments Follow-up Pt stated having low s with the new dose mounjaro Encounter Details Date Type Department Care Team (Late st Contact Info) Description 12/20/2024 2:10 PM EDT Office Visit [facility] [address] [place] [phone] [place] [address] [email or web address] Type 2 diabetes mellitus with hyperglycemia, with long-term current use of insulin (Primary Dx); Poorly controlled type 2 diabetes mellitus with peripheral neuropathy Social History Tobacco Use Types Packs/Day Years Used Date Smoking Tobacco: Some Days Cigarettes Smokeless Tobacco: Never Alcohol Use Standard Drinks/Week Comments Never 0 (1 standard drink = 0.6 oz pur e alcohol) Education Answer Date Recorded Are you interested in more education? Not on farhan e 08/30/2022 Are you concerned about learning? Not on file 08/30/2022 No 08/30/2022 No 08/30/2022 Digital Access Answer Date Recorded No 09/28/2022 No 09/28/2022 Reliable internet access at home? Not on file 09/28/2022 Device with a working camera? Not on file Comments Unknown Sex and Gender Information Value Date Recorded Sex Assigned at Not on file Legal Sex Female 2:21 PM EST Gender Identity Not on file Sexual Orientation Not on file documented as of this encounter Last Filed Vital Signs Vital Sign Reading Time Taken Comments Blood Pressure - - Pulse 81 12/20/2024 2:34 PM EDT Temperature - - Respiratory Rate - - Oxygen Saturation 97% 12/20/2024 2:34 PM EDT Inhaled Oxygen Concentration - - Weight 110.7 kg (244 lb) 12/20/2024 2:34 PM EDT Height 168.4 cm (5' 6.3 ) 12/20/2024 2:34 PM EDT Body Mass Index 39.03 12/20/2024 2:34 PM EDT documented in this encounter Progress Notes * Gemma Jameson PA-C - 12/20/2024 2:10 PM EDT Subjective: Patient ID: Estefania Buck is a 59 y.o. female. In the interval since the last visit, no changes in health Hemoglobin A1C: Reviewed last A1C from 09/25 was 10%, will order labs. Blood glucose monitoring: using the freestyle shelley 3+ sensor, average reading is 165, time in range is 62%, time high is 32%, time very high is 4%, time low is 2%. Hypoglycemia: she is having lows since starting the 5 mg of mounjaro, she will correct with orange juice or crackers and then is fine. Problems with medications: none. Recent weight changes: lost 7 pounds since 09/25. Diet : 3 meals a day, rare snacks, healthy choices, portion control has improve. Activity: doing a little bit of walking, going out more. Optho: upto date, needs to schedule annual. Foot: no issues. Injection/pump site & timing: rotating on abdomen for insulin and mounjaro and arms for the sensors, changing the sensor every 15 days, taking the mounjaro on , no lipohypertrophy or bruising Current Outpatient Medications Ordered in [facility]: aspirin 81 MG EC tablet, Take 81 mg by mouth daily. atorvastatin (LIPITOR) 20 MG tablet, Take 20 mg by mouth daily. FLUoxetine (PROZAC) 20 MG capsule, Take 20 mg by mouth every morning. FREESTYLE SHELLEY 3 PLUS SENSOR Sophia, Inject 1 each under the skin every 15 (fifteen) days. USE DIRECTED EVERY 14 DAYS gabapentin (NEURONTIN) 800 MG tablet, TAKE 1 TABLET BY MOUTH THREE TIMES A DAY hydroCHLOROthiazide (HYDRODIURIL) 12.5 MG tablet, TAKE 1 TABLET BY MOUTH EVERY DAY IN THE MORNING FOR 90 DAYS hydrOXYzine (ATARAX) 25 MG tablet, Take 25 mg by mouth every 6 (six) hours as needed. insulin lispro U-200 (HUMALOG KWIKPEN) 200 unit/mL (3 mL) InPn subcutaneous pen, Inject 80-100 Units under the skin 3 (three) times a day before meals. ketorolac (ACULAR) 0.5 % ophthalmic solution, Place 1 drop into each eye 4 (four) times a day. losartan (COZAAR) 100 MG tablet, Take 100 mg by mouth daily. metFORMIN (GLUCOPHAGE) 500 MG tablet, TAKE 2 TABLETS BY MOUTH TWICE DAILY. tirzepatide (MOUNJARO) 5 mg/0.5 mL PnIj subcutaneous pen, Inject 0.5 mL (5 mg total) under the skinevery 7 days. transparent dressings (TEGADERM FRAME STYLE) 1 3/4 X 1 3/4 Bndg, APPLY 1 EACH TOPICALLY EVERY 14 (FOURTEEN) DAYS. TO COVER THE FREESTYLE SHELLEY 3 SENSOR TRESIBA FLEXTOUCH U-200 200 unit/mL (3 mL) InPn injection pen, Inject 110 Units under the skin daily. zolpidem tartrate (ZOLPIDEM ORAL), Take 10 mg by mouth nightly at bedtime as needed. blood sugar diagnostic (CONTOUR NEXT) Strp strips, 1 each by Miscellaneous route 3 (three) times a day before meals. Dx E11.42, on insulin (Patient not taking: Reported on 12/20/2024) FREESTYLE SHELLEY 2 SENSOR kit, To monitor blood glucose, dx E11.42 on insulin, to change the sensor every 14 days (Patient not taking: Reported on 12/09/2022) naloxone (NARCAN) 4 mg/actuation nasal spray, 1 spray by Intranasal route once. (Patient not taking: Reported on 12/20/2024) NOVOLOG FLEXPEN U-100 INSULIN 100 unit/mL (3 mL) flexpen, INJECT 80 UNITS UNDER THE SKIN 3 (THREE) TIMES A DAY WITH MEALS. oxyCODONE 5 MG immediate release tablet, Take 5 mg by mouth every 6 (six) hours as needed. tiZANidine (ZANAFLEX) 2 MG tablet, Take 2 mg by mouth every 6 (six) hours as needed. (Patient not taking: Reported on 12/20/2024) traMADoL (ULTRAM) 50 mg tablet, Take 50 mg by mouth every 6 (six) hours as needed. (Patient not taking: Reported on 09/20/2024) Review of Systems Constitutional: Negative for fatigue (improved) and unexpected weight change. Eyes: Negative for unexpected vision change. Respiratory: Negative for cough and shortness of breath. Cardiovascular: Positive for leg swelling (using compression socks). Negative for chest pain. Gastrointestinal: Negative for constipation, diarrhea, heartburn, nausea and vomiting. Genitourinary: Positive for nocturia. Neurological: Positive for numbness. No tingling or paraesthesia Psychiatric/Behavioral: Negative for sleep disturbance. Musculoskeletal: Positive for back pain. Occasional leg cramps Objective: Physical Exam Vitals reviewed. Constitutional: Appearance: Normal appearance. Skin: General: Skin is warm. Neurological: Mental Status: She is alert and oriented to person, place, and time. Gait: Gait abnormal (using a cane). Psychiatric: Mood and Affect: Mood normal. Behavior: Behavior normal. Assessment/Plan: Problem List Items Addressed This Visit Poorly controlled type 2 diabetes mellitus with peripheral neuropathy Relevant Medications TRESIBA FLEXTOUCH U-200 200 unit/mL (3 mL) InPn injection pen insulin lispro U-200 (HUMALOG KWIKPEN) 200 unit/mL (3 mL) InPn subcutaneous pen Type 2 diabetes mellitus with hyperglycemia, with long-term current use of insulin - Primary Control has greatly improved based upon the patient's freestyle shelley 3+ sensor download. No severehypoglycemia. She has been having some lows since starting the mounjaro. She will correct and then is fine. Will increase her mounjaro dosing to 7.5 mg weekly. Will lower her insulins to help preventthe lows. Continue to work on eating healthy and being active. To call or message with any issues managing her glucose levels. Up to date with ophtho. Reviewed her last set of labs with her. Will send the referral for her to see nephrology based upon the elevation in her urine microalbumin levels. Relevant Medications tirzepatide (MOUNJARO) 7.5 mg/0.5 mL PnIj subcutaneous pen TRESIBA FLEXTOUCH U-200 200 unit/mL (3 mL) InPn injection pen insulin lispro U-200 (HUMALOG KWIKPEN) 200 unit/mL (3 mL) InPn subcutaneous pen Other Relevant Orders Hemoglobin A1c Alanine aminotransferase (ALT) Aspartate aminotransferase (AST) Basic metabolic panel Ambulatory referral to External Nephrology * Medina Muse MD - 12/20/2024 2:10 PM EDT Subject Line: Provider Attestation I have reviewed the notes, assessments, and/or procedures performed by PER Damon. I concur with her documentation of Estefania Buck. documented in this encounter Miscellaneous Notes * Assessment & Plan Note - Gemma Jameson PA-C - 12/20/2024 3:20 PM EDTAssociated Problem(s): Type 2 diabetes mellitus with hyperglycemia, with long-term current use of insulin Control has greatly improved based upon the patient's freestyle shelley 3+ sensor download. No severehypoglycemia. She has been having some lows since starting the mounjaro. She will correct and then is fine. Will increase her mounjaro dosing to 7.5 mg weekly. Will lower her insulins to help preventthe lows. Continue to work on eating healthy and being active. To call or message with any issues managing her glucose levels. Up to date with ophwaldoo. Reviewed her last set of labs with her. Will send the referral for her to see nephrology based upon the elevation in her urine microalbumin levels. documented in this encounter Plan of Treatment Upcoming Encounters Date Type Department Care Team (Late st Contact Info) Description 04/04/2025 2:50 PM EST Office Visit [facility] [address] [place] [phone] Gemma Jameson PA-C [address] [place] [phone] 06/27/2025 1:00 PM EST Office Visit [facility] [address] [place] [phone] Medina Muse MD [address] [place] [phone] Scheduled Orders Name Type Priority Associated Diagnoses Orde r Schedule Hemoglobin A1c Lab Routine Type 2 diabetes mellitus with hyperglycemia, with long-term current use of insulin Expected: 12/20/2024, Expires: 12/20/2025 Alanine aminotransferase (ALT) Lab Routine Type 2 diabetes mellitus with hyperglycemia, with long-term current use of insulin Expected: 12/20/2024, Expires: 12/20/2025 Aspartate aminotransferase (AST) Lab Routine Type 2 diabetes mellitus with hyperglycemia, with long-term current use of insulin Expected: 12/20/2024, Expires: 12/20/2025 Basic metabolic panel Lab Routine Type 2 diabetes mellitus with hyperglycemia, with long-term current use of insulin Expected: 12/20/2024, Expires: 12/20/2025 Scheduled Referrals Name Type Priority Associated Diagnoses Order Schedule Ambulatory referral to External Nephrology Outpatient Referral Routine Type 2 diabetes mellitus with hyperglycemia, with long-term current use of insulin Ordered: 12/20/2024 documented as of this encounter Visit Diagnoses Diagnosis Type 2 diabetes mellitus with hyperglycemia, with long-term current use of insulin- Primary Poorly controlled type 2 diabetes mellitus with peripheral neuropathy documented in this encounter Care Teams Diamond Cleaver Relationship Specialty Start Date End Date Zoraida Li MD [address] [place] [address] PCP - General Family Medicine 07/07/22 documented as of this encounter Additional Source Comments The information contained in this document represents components of the legal health record. It is not the complete legal health record.[facility]
--- NOTE | ~2024-12-23 | FL_ITS ---
EXAMINATION: XR FLUOROSCOPY WITH IMAGES CLINICAL INFORMATION: Lumbar pain management injection COMPARISON: None available. TECHNIQUE: Fluoroscopy provided to: Dr. Ramirez Fluoroscopy time: 1 minutes, 17 seconds DAP: 22.730 Gycm2 Images: 3 FINDINGS: 3 lumbar spot images taken during lumbar pain management injection. Please refer to the full operative report for details. FL/FL guidance in OR IMPRESSION: Fluoroscopic guidance. Electronically signed by: Govind Walker MD 12/23/2024 03:03 PM EDT
--- OUTSIDE RECORDS SUMMARY | 2024-12-23 11:42 | XMS_ITS | Clinical Summary ---
Author Organization Patient Business Ser [facility] Address [address] [place] [address] Care Team Providers Care Job Compositor Name Role Phone Zoraida Li MD Primary [...] age to complete this topic Care Teams Job Compositor Relationship Specialty Start Date End Date Zoraida Li MD PCP - General 04/04/22
--- OUTSIDE RECORDS SUMMARY | 2024-12-23 11:42 | XMS_ITS | Clinical Summary ---
Author Organization [facility] Address [address] [place] [address] Care Team Providers Care Maintenance Scheduler Name Role Phone Zoraida Li MD Primary Care Provider [phone] Allergies Active Allergy Reactions Criticality Noted Date [...] age to complete this topic Care Teams Maintenance Scheduler Relationship Specialty Start Date End Date Zoraida Li MD [address] [place] [phone] PCP - General Family Medicine 04/04/22
[2024-12-23 12:18] VITALS: BMI 39.6
[2024-12-23 12:34] VITALS: BP 166/69; PULSE 88; RESP 18; TEMP 36.4; O2SAT 96
--- NOTE | 2024-12-23 12:35 | PM.OP ---
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 Surgeon: Catarino Ramirez MD Anesthesia: MAC (Minimal sedation, patient was able to continue conversation throughout the procedure.) Was an Bilingual Branch Manager used for this Procedure?: No Estimated blood loss (mL): 2 Condition: stable Disposition: PACU
--- NOTE | 2024-12-23 12:35 | MHC.SHP ---
Pre-Procedural Eval Section A - 24 Hr Update-Section A only Date of Service: 12/23/24 The patient is an INPATIENT: No Changes since office visit: Yes Patient answered all questions Section B - Complete if H&P > 30 days Chief Complaint: Spondylosis without myelopathy or radiculopathy, Details of Present Illness: As above Relevant Family History (Specify if Yes): No Relevant Social History: None Present Medications: None Medical History: No relevant PMH History of Previous Operations: Relevant previous surgery/procedure and date(s) (Previous successful RFA alleviated her pain for 9 months.) Allergies: Allergies Allergy/AdvReac Type Severity Reaction Status Date / Time amoxicillin (AMOXICILLIN) Allergy Severe ANAPHYLAXIS Verified 11/24/24 14:46 exenatide (From BYETTA) Allergy Severe ANAPHYLAXIS Verified 11/24/24 14:46 insulin detemir (From Allergy Severe SORE THROAT Verified 11/24/24 14:46 LEVEMIR U-100 INSULIN) insulin glargine (From Allergy Severe YEAST Verified 11/24/24 14:46 LANTUS U-100 INSULIN) INFECTION insulin glulisine (From Allergy Severe UNKNOWN Verified 11/24/24 14:46 APIDRA U-100 INSULIN) insulin regular (From Allergy Severe MUSCLE PAIN Verified 11/24/24 14:46 NOVOLIN R REGULAR U-100 INSULN) lisinopril Allergy Severe Cough Verified 11/24/24 14:46 penicillin V Allergy Severe Rash Verified 11/24/24 14:46 pioglitazone (From ACTOS) Allergy Severe HIVES Verified 11/24/24 14:46 insulin isophane (NPH) (From Allergy Intermediate YEAST Verified 11/24/24 14:46 HUMULIN N NPH U-100 INSULIN) INFECTION duloxetine (From CYMBALTA) Allergy Unknown UNKNOWN Verified 11/24/24 14:46 tizanidine AdvReac Severe Anxiety Verified 11/24/24 14:46 Review of Systems Sugical H&P ROS: Negative: Cardiovascular, Respiratory, Neurological, Psychiatric, Hem-Onc, Allergic/Immunologic, Gastrointestinal, Genitourinary, Integumentary and Eyes/Ears/Nose/Throat and Yes, Specify: Constitution (Obesity), Musculoskeletal (Spondylosis lumbar) and Endocrine (Diabetes) Exam Surgical H&P Exam: Normal: HEENT, Normal: Heart, Normal: Lungs, Normal: Extremities, Normal: Abdomen, Normal: Skin and Normal: Neurological Plan Diagnosis/Plan: Unchanged I have reviewed the history and physical and performed a pertinent physical examination on my patient. No changes have occurred unless specified. Time Spent With Patient Time: Total time managing care of this patient today ____ minutes.
[2024-12-23] MEDS: Lactated Ringers 1,000 ML 80 ML IVCONT (12:37)
--- NOTE | 2024-12-23 12:37 | P.OP_ITS ---
Operative Note Operative Note Date of Service: 11/13/23 Narrative: Radiofrequency ablation bilateral L3- L4- DRL5 medial branches. Informed consent was explained to the patient. All questions were explained and answered.? The patient was taken inside of the operating room where she was positioned prone on the operating table.? Time-out was performed delineating patient's name and date of , correct site, side, the nature of the procedure, patient's allergy, preoperative antibiotic if needed.? All operating room staff was participating in OR time-out procedure.? [place] [employer] monitors were applied.? Patient was minimally sedated and I was able to maintain the verbal contact with the patient throughout the procedure. Her lower back was prepped with ChloraPrep and draped with sterile towels.? C- arm was brought over the operating field and sq picture of L4-5 vertebra as and S1 vertebra were delineated on the screen.? Points of interest were delineated as connection of superior articular process of L4 and L5 vertebra bilaterally with corresponding transverse processes as well as connection of the sacral alae bilaterally with superior articular process of S1.? The projection of the point of interest to the skin were injected with the small amount of local anesthetic lidocaine 2% 1-1.5 cc.? And after that 18 gauge 145 mm radiofrequency cannulas were driven to the point of interest in tunnel vision fashion under oblique view After needles gently contacted the bone at the point of interests the stylets were removed from the needles and electrodes were inserted into the needles.? Electrodes were connected to the radiofrequency machine and testing was performed for the patient's motor function.? There were no pathological motor response indicating stimulation of somatic nerves.? After that electrodes were removed and each needle was injected with small amount of ropivacaine 0.5% 1- 1.5 cc mixed with trace amount of Kenalog.? Upon completion of the injections the electrodes were reinserted and energy of 89 degree centigrade for 90 seconds was applied to each needle 1st on the right side and then on the leftt.? Upon completion of the energy application the needles were rotated 180? and energy applied with the same temperature and with the same time.?Upon completion of the injections needles were removed and sterile dressings were applied patient was taken outside of the operating room to recovery room.
--- NOTE | 2024-12-23 12:41 | HO.ANESPROP2 ---
HPI - Anesthesia Eval Consult details Narrative: 59 yo F presenting for bilateral L3, L4, and L5 medial branch radiofrequency ablation PMFSH Active Problems Active Problems: All Active Problems Chronic low back pain without sciatica (Acute) Bilateral hand pain (Acute) Arthritis of right knee (Acute) Trigger finger, left middle finger (Acute) Trigger finger, right ring finger (Acute) Obesity (BMI 35.0-39.9 without comorbidity) (Acute) History of carpal tunnel release (Acute) Carpal tunnel syndrome on both sides (Acute) Tear of medial meniscus of right knee (Acute) Left hip pain (Acute) Muscle spasm of back (Acute) Sacroiliac joint pain (Acute) Right knee pain (Acute) Lesion of bone of knee (Acute) Chronic painful diabetic neuropathy (Acute) Uncontrolled diabetes mellitus with hyperglycemia (Acute) Lumbar spondylosis (Acute) Lumbar degenerative disc disease (Acute) Lumbar radiculopathy (Acute) Past Medical History Medical History Tennis elbow MARIAM (obstructive sleep apnea) Vitamin D deficiency Familial hirsutism Hyperlipidemia Microalbuminuria Hypertension Depression Anxiety Hypercholesterolemia Type 2 diabetes mellitus with peripheral neuropathy Lumbar radiculopathy Right leg pain Family History Family History Mother Hypertension Diabetes Father Hypertension Family history of problems with anesthesia: No Surgical History Surgical History Previous back surgery History of carpal tunnel release Hx of tubal ligation History of Problems with Anesthesia: No Social History Social History Household Members Other:: lives only, but 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 If so, by whom?: No Are you DNR?: No Advance Directives: No Advance Directives Information Provided: Yes Advance Directives on File: No Patient : No : No Poor oral hygiene: Yes Meds Allergies Allergy/AdvReac Type Severity Reaction Status Date / Time amoxicillin (AMOXICILLIN) Allergy Severe ANAPHYLAXIS Verified 11/24/24 14:46 exenatide (From BYETTA) Allergy Severe ANAPHYLAXIS Verified 11/24/24 14:46 insulin detemir (From Allergy Severe SORE THROAT Verified 11/24/24 14:46 LEVEMIR U-100 INSULIN) insulin glargine (From Allergy Severe YEAST Verified 11/24/24 14:46 LANTUS U-100 INSULIN) INFECTION insulin glulisine (From Allergy Severe UNKNOWN Verified 11/24/24 14:46 APIDRA U-100 INSULIN) insulin regular (From Allergy Severe MUSCLE PAIN Verified 11/24/24 14:46 NOVOLIN R REGULAR U-100 INSULN) lisinopril Allergy Severe Cough Verified 11/24/24 14:46 penicillin V Allergy Severe Rash Verified 11/24/24 14:46 pioglitazone (From ACTOS) Allergy Severe HIVES Verified 11/24/24 14:46 insulin isophane (NPH) (From Allergy Intermediate YEAST Verified 11/24/24 14:46 HUMULIN N NPH U-100 INSULIN) INFECTION duloxetine (From CYMBALTA) Allergy Unknown UNKNOWN Verified 11/24/24 14:46 tizanidine AdvReac Severe Anxiety Verified 11/24/24 14:46 Active Medications: Current Medications Lactated Ringer's (Lr) 1,000 mls @ 80 mls/hr IVCONT .[id number] CAROLYN Last Admin: 12/23/24 12:37 Dose: 80 mls/hr Home Medications ?Medication ?Instructions ?Recorded ?Confirmed ?Last Taken ?Type aspirin 81 mg tablet,delayed 81 mg PO DAILY 01/26/23 12/23/24 04/10/24 History release atorvastatin 20 mg tablet 20 mg PO DAILY 01/26/23 12/23/24 11/13/23 History citalopram 10 mg tablet (Celexa) 10 mg PO DAILY 01/26/23 12/23/24 Unknown History gabapentin 800 mg tablet 800 mg PO TID 01/26/23 12/23/24 11/13/23 History glipizide 10 mg tablet, extended 10 mg PO BID 01/26/23 12/23/24 11/13/23 History release 24 hr hydroxyzine HCl 25 mg tablet 25 mg PO BID PRN Anxiety 01/26/23 12/23/24 Unknown History losartan 100 mg tablet 100 mg PO DAILY 01/26/23 12/23/24 11/13/23 History metformin 500 mg tablet 1,000 mg PO BID 01/26/23 12/23/24 11/13/23 History ketorolac 0.5 % eye drops 1 drp ophthalmic (eye) DAILY 06/30/23 12/23/24 Unknown History zolpidem 10 mg tablet 10 mg PO BEDTIME PRN Sleep 08/10/23 12/23/24 Unknown History insulin degludec 200 unit/mL (3 100 unit subcut DAILY 11/09/23 12/23/24 11/12/23 21:00 History mL) subcutaneous pen (Tresiba 200 units FlexTouch U-200 insulin) hydrochlorothiazide 12.5 mg tablet 12.5 mg PO DAILY 11/13/23 12/23/24 11/13/23 History insulin aspart U-100 100 unit/mL 80 unit subcut TID 11/13/23 12/23/24 11/12/23 17:00 History (3 mL) subcutaneous pen (Novolog 80 units FlexPen U-100 Insulin aspart) fluoxetine 20 mg capsule 20 mg PO DAILY 12/29/23 12/23/24 Unknown History tirzepatide 5 mg/0.5 mL 5 mg subcut QWEEK 12/23/24 12/23/24 12/15/24 History subcutaneous pen injector (Sarah) Exam Exam Date and Time: 12/23/24 1240 Height,Weight and Vital Signs: Height 5 ft 6 in Weight 111.3 kg Last Vital Signs Temp 97.5 F 12/23/24 12:34 Pulse 88 12/23/24 12:34 Resp 18 12/23/24 12:34 BP 166/69 H 12/23/24 12:34 Pulse Ox 96 12/23/24 12:34 O2 Del Method Room Air 12/23/24 12:34 Airway Mallampati Class: II TM Dist: <=3cm Neck ROM: Limited Denture: Upper Heart: S1S2 Lungs: CTAB Assessment and Plan Assessment Anesthesia Assessment: Anesthesia Plan Discussed and Chart Reviewed Final Anesthetic Review Family History of Problems with Anesthesia: No History of Problems with Anesthesia: No NPO: Yes ASA Class: III Final Preanesthetic Review: No Changes in Pt Med Stat, Meds/Allgs Chart Reviewed, Consent Obtained/Reviewed and Anes Risks/Benef Reviewed Patient Risk: Intermediate Procedure Risk: Low Anesthetic Plan Anesthetic Plan: MAC: and Agree w/ Assess. and Plan Disposition: Standard PACU
[2024-12-23 13:47] VITALS: BP 146/67; PULSE 75; RESP 18; TEMP 37.1; O2SAT 96
[2024-12-23 14:02] VITALS: BP 153/68; PULSE 82; RESP 16; O2SAT 97
[2024-12-23 14:16] VITALS: BP 142/72; PULSE 79; RESP 16; TEMP 36.4; O2SAT 97
== END 2024-12-23 14:48 | disposition home or self-care (01) ==
PROVIDERS: PCP Family Medicine; Visit Provider Anesthesiology
PROC: (CPT 64635; principal; 2024-12-23 13:30)
DX: M47.816 Spondylosis without myelopathy or radiculopathy, lumbar region (principal); G89.29 Other chronic pain; M51.360 Other intervertebral disc degeneration, lumbar region with discogenic back pain only; I73.9 Peripheral vascular disease, unspecified; Z91.81 History of falling; E11.42 Type 2 diabetes mellitus with diabetic polyneuropathy; I10 Essential (primary) hypertension; E78.00 Pure hypercholesterolemia, unspecified; F32.A Depression, unspecified; F41.9 Anxiety disorder, unspecified; G47.33 Obstructive sleep apnea (adult) (pediatric); Z79.4 Long term (current) use of insulin; Z79.85 Long-term (current) use of injectable non-insulin antidiabetic drugs; Z79.899 Other long term (current) drug therapy; Z99.89 Dependence on other enabling machines and devices; Z88.0 Allergy status to penicillin; Z88.1 Allergy status to other antibiotic agents; Z88.8 Allergy status to other drugs, medicaments and biological substances; Z87.891 Personal history of nicotine dependence; Z98.890 Other specified postprocedural states
CPT/HCPCS: 64635; 64636 ×2; J2003; J2250; J2795; J3010; J3301

== ENCOUNTER → 2024-12-23 11:43 | Outpatient (BNV) | payer OTHER, SELFPAY | PROVIDERS: PCP Family Medicine; Visit Provider Anesthesiology | DX: M47.816 Spondylosis without myelopathy or radiculopathy, lumbar region (principal) | CPT/HCPCS: 64635; 64636 ==

== ENCOUNTER 2025-02-14 10:10 | Outpatient (AMB) | payer OTHER, SELFPAY ==
--- NOTE | 2025-02-14 10:13 | MHC.OFFVIS ---
Vital Signs 02/14/25 10:18 02/14/25 10:19 Height 5 ft 6 in Weight 241 lb 4 oz BMI 38.9 BP 200/95 H 198/95 H Blood Pressure Location Lt brachial Rt radial Position Sitting Sitting Pulse 90 Pulse Source Pulse Oximeter Pulse Oximetry (%) 97 Oxygen Delivery Method Room Air Comment bp recheck Intake Visit Reasons: S/p B/l L3-L4-DR L5 MB RFA 12/23/24 Intake Note: Pain today 08/11 Insurance Territory Manager Required: No Accompanied by: Self / Same As Patient Allergies amoxicillin (AMOXICILLIN) Allergy (Severe, Verified 02/14/25 10:19) ANAPHYLAXIS exenatide (From BYETTA) Allergy (Severe, Verified 02/14/25 10:19) ANAPHYLAXIS insulin detemir (From LEVEMIR U-100 INSULIN) Allergy (Severe, Verified 02/14/25 10:19) SORE THROAT insulin glargine (From LANTUS U-100 INSULIN) Allergy (Severe, Verified 02/14/25 10:19) YEAST INFECTION insulin glulisine (From APIDRA U-100 INSULIN) Allergy (Severe, Verified 02/14/25 10:19) UNKNOWN insulin regular (From NOVOLIN R REGULAR U-100 INSULN) Allergy (Severe, Verified 02/14/25 10:19) MUSCLE PAIN lisinopril Allergy (Severe, Verified 02/14/25 10:19) Cough penicillin V Allergy (Severe, Verified 02/14/25 10:19) Rash pioglitazone (From ACTOS) Allergy (Severe, Verified 02/14/25 10:19) HIVES insulin isophane (NPH) (From HUMULIN N NPH U-100 INSULIN) Allergy (Intermediate, Verified 02/14/25 10:19) YEAST INFECTION duloxetine (From CYMBALTA) Allergy (Unknown, Verified 02/14/25 10:19) UNKNOWN tizanidine Adverse Reaction (Severe, Verified 02/14/25 10:19) Anxiety HPI Comments Details: The patient is a 59-year-old female presenting with a postoperative evaluation following bilateral L3-L4-L5 medial branch radiofrequency ablation (RFA). The procedure was performed on December 23, but the patient reports that it did not provide any significant pain relief, with no improvement in her daily activities, mobility, sleep or social activities. The patient describes the pain as feeling like being cut in half, and despite a current pain level of 4/10, she feels the RFA was ineffective. The patient has a history of chronic painful diabetic neuropathy, for which she has been undergoing Qutenza applications every 3 months. The last application was in November, and she finds it helpful for managing shooting pains in her legs. The patient also has a history of Type 2 Diabetes Mellitus, with a recent A1c of 6.8%. She is currently managing her diabetes with Mounjaro injections and dietary modifications, achieving 85% of blood glucose readings between 70 and 180 mg/dL. Denies any recent cough, cold, infection, fever or any other significant changes in medical history since last office visit. Denies any changes to medications, medical history or recent hospitalizations. Past Procedures: 12/23/24: Bilateral L3-L4 DR L5 MB RFA-0% 08/25/24: 4th Qutenza application for DPN 03/08/24: Bilateral Diagnostic SIJ injections-100% ongoing pain relief >1 week 11/13/23: Bilateral L3-L4-L5 MB RFA-75% ongoing pain relief 08/11/23: Diagnostic Bilateral L3-L4 DR L5 MBB-80-85% pain relief for 12 hours 08/10/23: 3rd Qutenza application for DPN 06/30/23: Diagnostic Bilateral L3-L4 DR L5 MBB-80% pain relief for 6.5 hours, ongoing 70% pain relief 05/15/23: 2nd Qutenza application for DPN 02/12/23: 1st Qutenza application for DPN PRIOR: Patient is a 57 year old female with prior history of chronic low back pain, pinched nerve L5, lumbar DDD, MARIAM, uncontrolled DM, PAD, peripheral neuropathy, anxiety, depression and former smoker, presents today for evaluation of low back pain with right sided radiculopathy. Patient was followed in the past by [facility] for low back pain and received multiple back injections with good results. She attributes her most recent radicular symptoms due to a mechanical fall in October. She accidentally hit a chair with her walker and fell onto her right side. Reports pain in her lower back pain with radiation into her right buttock, lateral hip and down to the lower leg posteriorly and laterally with cramping in her right calf, numbness and burning pain in both feet. Denies any bladder or bowel dysfunction or saddle anesthesia. Patient reports bilateral lower extremity weakness, uses cane with ambulation. Recent lumbar spine MRI is noted below. Patient is not candidate for therapeutic spine injections due to elevated A1C, nor does she want to be evaluated by Neurosurgery as she is not interested in back surgery. Reports history of overdose on oxycodone-acetaminophen due to forgetfulness and taking double dose, which required hospitalization per patient in 2016. She sees mental therapist for anxiety and depression. Reports she quit smoking on 01/14/23 and takes Nicotine lozenges for craving. Reports increased snacking and eating since quitting. 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 Receives daily [employer]PER[employer] services. Current blood sugar per Dexicomp reads 184. Patient reports most recent A1C was over 10. [address] follows Dr. Medina Muse at [facility]. Reports right great toenail removed in 2019. Patient requests referral to Podiatry provider as she has not seen one in several years. Location Back pain radiates down right leg posteriorly Duration Chronic pain for many years, progressively worsening Characteristics of symptom or complaint Aching, burning, shooting, stabbing, numbness Aggravating or associated factors Walking, sitting, climbing and descending stairs, movements, weather change Relieving factors Tylenol, Percocet, morphine, gabapentin Treatment PT- increased pain, injections- [facility] pain management-good relief PFSH Medical History Tennis elbow MARIAM (obstructive sleep apnea) Vitamin D deficiency Familial hirsutism Hyperlipidemia Microalbuminuria Hypertension Depression Anxiety Hypercholesterolemia Type 2 diabetes mellitus with peripheral neuropathy Lumbar radiculopathy Right leg pain Surgical History Previous back surgery History of carpal tunnel release Hx of tubal ligation Family History Mother Hypertension Diabetes Father Hypertension Social History Household Members Other:: lives only, but 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 Are you a primary manager medicare to a significant other at home: No Do you presently have visiting nurse or other home services: No Alcohol intake: never Patient Tobacco Use Status: Former Tobacco user Tobacco use type: Cigarette Years Smoked: 40 Second Hand Smoke Exposure: No Review of Systems Const All systems reviewed & are unremarkable except as noted in HPI and below Reports as per HPI, Denies body aches, Denies chills, Denies fever(s), Denies frequent falls, Denies headache(s), Denies malaise, Denies night sweats, Denies poor appetite, Denies weakness and Reports weight loss ENT Denies headache(s) Card Denies chest pain at rest, Denies chest pain with activity, Denies pedal edema, Denies claudication, Denies dyspnea, Denies dyspnea on exertion and Denies orthopnea Resp Denies dyspnea and Denies dyspnea on exertion Neuro Denies frequent falls, Denies headache(s) and Denies weakness Physical Exam Vital Signs: Last Vital Signs Pulse 90 02/14/25 10:18 BP 198/95 H 02/14/25 10:19 Pulse Ox 97 02/14/25 10:18 Oxygen Delivery Method Room Air 02/14/25 10:18 BMI result Body Mass Index 38.9 General: Appears afebrile. Alert and oriented. Mood and affect appropriate. Follows and participates in conversation appropriately. Respiratory effort is unlabored. No cough. Able to transition from sit to stand unassisted. Uses cane with ambulation. Ambulates with bilaterally normal heel strike and toe off. General: Yes no CVA tenderness Back/Spine/Pelvis Other: Limited lumbar spine ROM due to pain. Facet loading bilaterally reproduces mild to moderate pain. Back: no CVA tenderness Cervical Spine: cervical ROM normal, cervical muscular tenderness and No Cervical spine tenderness Thoracic/Lumbar Spine: thoracic and lumbar spine normal to inspection, No Thoracic/lumbar spine scar(s), Lasegue's sign negative, straight leg raise negative bilaterally, pain with thoraco-lumbar ROM, paraspinal muscle tenderness, thoraco-lumbar ROM limited, No thoracic spinal tenderness and No lumbar spinal tenderness Sacroiliac joints: bilaterally (+Stanley's) tender to palpation Extrem Other: There is decreased sensation over the soles of the feet and the toes. No breaks in the skin. No soft tissue swelling, no redness or warmth. +2 pedal pulses bilaterally. Reports numbness, tingling and burning in both feet. General: Yes capillary refill normal, Yes no clubbing, cyanosis or edema and Yes no calf tenderness Results Reviewed Results Reviewed: CT/CT abdomen pelvis w IV con 11/13/22 OSSEOUS STRUCTURES: Degenerative changes are noted in the spine. Assessment & Plan Assessment & Plan (1) Lumbar degenerative disc disease: Code(s): M51.36 - Other intervertebral disc degeneration, lumbar region Category: Medical (2) Lumbar spondylosis: Code(s): M47.816 - Spondylosis without myelopathy or radiculopathy, lumbar region Category: Medical (3) Chronic low back pain without sciatica: Code(s): M54.50 - Low back pain, unspecified; G89.29 - Other chronic pain Category: Medical Plan The plan includes discontinuing further radiofrequency ablation procedures due to lack of efficacy in pain relief. The patient will continue with Qutenza patches for chronic painful diabetic neuropathy, as they have been beneficial in managing leg pain. Follow-up is scheduled in three weeks for the next Qutenza application. The patient is advised to consult her primary care physician regarding the use of Tramadol for pain management, as she has been once again informed that we do not offer opioid program. Patient was informed and verbally consented to the use of an ambient scribe for clinic note documentation during this visit. Coding Level of Care Code Est Pt Level 3 (01758) Complex EM visit Add On G2211 Diagnoses Lumbar degenerative disc disease M51.36 Lumbar spondylosis M47.816 Chronic low back pain without sciatica M54.50; G89.29
[2025-02-14 10:18] VITALS: BP 200/95; PULSE 90; O2SAT 97; BMI 38.9
[2025-02-14 10:19] VITALS: BP 198/95
--- OUTSIDE RECORDS SUMMARY | 2025-02-14 11:48 | XMS_ITS | Clinical Summary ---
Author Organization Patient Business Ser [facility] Address [address] [place] [address] Care Team Providers Care Financial Operations Clerk Name Role Phone Zoraida Li MD Primary [...] Last Done Comments Breast Cancer Screening 1966 Colorectal Cancer Screening: Colonoscopy 1966 DTaP,Tdap,and Td Vaccines (1 - Tdap) 1985 Hepatitis B Vaccines (1 of 3 - 19+ 3-dose series) 1985 Cervical Cancer Screening: P ap Smear 08/17/1987 Pneumococcal Vaccine: 50+ Ye ars (1 of 1 - PCV) 2016 Zoster Vaccines (1 of 2) 2016 Depression Screening 05/04/2024 HIV Screening 09/09/2024 Hepatitis C Screening 09/09/2024 Social Influencers of Health Screening 09/09/2024 COVID-19 Vaccine (1 - 2023-2 5 season) 2025 Influenza Vaccine (#1) 2025 RSV Immunization Adult Patie nts (1 - 1-dose 75+ series) 2041 HIB Vaccines Aged Out No longer eligi [...] age to complete this topic Care Teams Financial Operations Clerk Relationship Specialty Start Date End Date Zoraida Li MD PCP - General 04/04/22
--- OUTSIDE RECORDS SUMMARY | 2025-02-14 11:48 | XMS_ITS | Clinical Summary ---
Author Organization [facility] Address [address] [place] [address] Care Team Providers Care Directional Drill Operator Name Role Phone Zoraida Li MD Primary Care Provider [phone] Allergies Active Allergy Reactions Criticality Noted Date [...] age to complete this topic Care Teams Directional Drill Operator Relationship Specialty Start Date End Date Zoraida Li MD [address] [place] [id number] PCP - General Family Medicine 04/04/22
--- OUTSIDE RECORDS SUMMARY | 2025-02-14 11:48 | XMS_ITS | Clinical Summary ---
Author Organization [facility] Address [address] [place] [id number] Phone Care Team Providers Care Mail Clerk Bills Name Role Phone Zoraida Li MD Primary Care Provider [phone] Allergies Active Allergy Reactions Criticality Noted Date Comments Ramiro Inhibitors Shortness Of Breath High 11/15/2013 Duloxetine Rash High 04/09/2014 Exenatide Swelling 11/15/2013 Insulin Glargine Hives 04/04/2022 Penicillins Hives Medium 04/04/2022 Medications atorvastatin (LIPITOR) 20 MG tablet Take 20 mg by mouth daily. 3 Active hydroCHLOROthiazi de (HYDRODIURIL) 12.5 MG tablet TAKE 1 TABLET BY MOUTH EVERY DAY IN THE MORNING FOR 90 DAYS 3 Active losartan (COZAAR) 100 MG tablet Take 100 mg by mouth daily. 3 Active aspirin 81 MG EC tablet Take 81 mg by mouth daily. 3 Active zolpidem tartrate (ZOLPIDEM ORAL) Take 10 mg by mouth nightly at bedtime as needed. Active FLUoxetine (PROZAC) 20 MG capsule Take 20 mg by mouth every morning. 3 Active gabapentin (NEURONTIN) 800 MG tabletIndications :Poorly controlled type 2 diabetes mellitus with peripheral neuropathy TAKE 1 TABLET BY MOUTH THREE TIMES A DAY 270 tablet 3 Active ketorolac (ACULAR) 0.5 % ophthalmic solution Place 1 drop into each eye 4 (four) times a day. 4 Active transparent dressings (TEGADERM FRAME STYLE) 1 3/ X 1 07/05 BndgIndications:T ype 2 diabetes mellitus with hyperglycemia, with long-term current use of insulin APPLY 1 EACH TOPICALLY EVERY 14 (FOURTEEN) DAYS. TO COVER THE FREESTYLE RIGOBERTO 3 SENSOR 50 each 1 4 Active hydrOXYzine (ATARAX) 25 MG tablet Take 25 mg by mouth every 6 (six) hours as needed. 4 Active metFORMIN (GLUCOPHAGE) 500 MG tabletIndications :Type 2 diabetes mellitus with hyperglycemia, with long-term current use of insulin TAKE 2 TABLETS BY MOUTH TWICE DAILY. 360 tablet 2 5 Active FREESTYLE RIGOBERTO 3 PLUS SENSOR DeviIndications:T ype 2 diabetes mellitus with hyperglycemia, with long-term current use of insulin Inject 1 each under the skin every 15 (fifteen) days. USE DIRECTED EVERY 14 DAYS 6 each 3 5 Active tirzepatide (MOUNJARO) 7.5 mg/0.5 mL PnIj subcutaneous penIndications:Ty pe 2 diabetes mellitus with hyperglycemia, with long-term current use of insulin Inject 0.5 mL (7.5 mg total) under the skin every 7 days. 2 mL 3 5 Active TRESIBA FLEXTOUCH U-200 200 unit/mL (3 mL) InPn injection penIndications:Ty pe 2 diabetes mellitus with hyperglycemia, with long-term current use of insulin Inject 90 Units under the skin daily. 5 Active insulin lispro U-200 (HUMALOG KWIKPEN) 200 unit/mL (3 mL) InPn subcutaneous penIndications:Po gerardo controlled type 2 diabetes mellitus with peripheral neuropathy Inject 80 Units under the skin 3 (three) times a day before meals. 5 Active Active Problems Problem Noted Date Diagnosed Date Chronic pain 07/18/2022 Degeneration of lumbosacral intervertebral disc 07/18/2022 Diabetic nephropathy associa alvin with type 2 diabetes mellitus 07/18/2022 Assessment & Plan (09/23/2024 7:51 PM EDT): History of proteinuria, last urine microalbumin/creatinine ratio was 1403 in 02/2024. Creatinine 1.1, estimated GFR 59 as of 05/2024. Patient had shortness of breath on RAMIRO inhibitor in the past. BP over target today. -Discussed importance to work on improving diabetes control to decrease progression of her kidney disease -Avoid NSAIDs -Consider renal consult Essential hypertension 07/18/2022 Hyperlipidemia 07/18/2022 Poorly controlled type 2 manuel rigoberto mellitus with peripheral neuropathy 07/18/2022 Assessment & Plan (09/23/2024 7:57 PM EDT): Improved but still poor control by rigoberto CGM download. Average glucose 269, GMI 9.7, time in range only 3% and over 200 5065% of the day. No frequent or severe hypoglycemia. Patient is using 100 units of Tresiba U200 at night and 100 units of Humalog U200 about 15 minutes before each main meal 3 times a day. She remains on metformin 1000 mg twice a day and glipizide 10 mg twice a day. She takes her medications consistently. She gained significant weight over the last few years. Her neuropathy symptoms on her feet improved on Qutenza (capsaicin) treatment at the pain management center every 3 months. She also remains on gabapentin 800 mg 3 times a day. She has history of allergic reaction to Byetta, Lantus and Humulin premixed insulins. She has never tried another GLP-1 agonist. -Will try Mounjaro 2.5 mg weekly. Pros and cons discussed. Call if any side effects. -Stop glipizide since it is ineffective -Discussed that after adding the Mounjaro she may need a lower dose of Humalog. She may decrease the Humalog by 6 to 10 units if getting low blood sugars within 2 hours after meals. -Since her blood sugars are consistently trending up after her last meal with the current Humalog dose we increased her dinner dose to 110 units. -To improve her fasting sugars will increase the Tresiba to 110 units. -Enter insulin doses and and meals to the rigoberto almaz -Call with blood sugar problems. -Labs today Assessment & Plan (05/20/2024 3:30 PM EST): Control is poor based upon the patient's freestyle rigoberto 3 sensor download. No frequent or severe hypoglycemia. Her glucose levels have not been as good since her insurance will no longer pay for the concentrated insulin. She is taking the most a pen can give at one time for a U-100 concentration. She doesn't want to take multiple injections to cover one meal. Will try again getting her the humalog U-200 insulin as when she was using this her glucose levels were under much better control. Will maintain her regimen as until we can get the insurance to change their coverage she will continue to use the most a pen can give at one time. Continue to try and eat healthy and be as active as she can tolerate. Up to date with ophtho. Needs to find a new funeral planning counselor. Labs ordered Assessment & Plan (02/18/2024 5:06 PM EDT): Control is poor based upon the patient's freestyle rigoberto 3 sensor download. No frequent or severe hypoglycemia. Her glucose levels have not been as good since her insurance will no longer pay for the concentrated insulin. She is taking the most a pen can give at one time for a U-100 concentration. She doesn't want to take multiple injections to cover one meal. Will maintain her regimen as until we can get the insurance to change their coverage she will continue to use the most a pen can give at one time. Continue to try and eat healthy and be as active as she can tolerate. Up to date with ophtho. Needs to find a new funeral planning counselor. Labs ordered Assessment & Plan (12/09/2022 4:22 PM EDT): Control remains poor with A1c 11% tested in the office today. Previous A1c was similar 11.1% in 07/2022. The day to day control is unknown since patient has not been able to fill the prescription for the rigoberto 3 and she does not do fingerstick glucose testing. She asked me to [facility] and hoping to get it from there quicker than from [facility]. I asked her to call if has any problem getting the prescription filled. For now she will continue current treatment with NovoLog 70 units before breakfast and 70 units before dinner and if has lunch she will take 70 units as well. Continue Tresiba U200 100 units at suppertime. Continue metformin 1000 mg twice a day and glipizide 10 mg twice a day. Discussed importance of rotating injection sites. Reviewed symptoms, prevention and treatment of hypoglycemia. Call if blood sugar below 70 or over 250 repeatedly. Continue to work on healthy meal plan and try to increase exercise as tolerated. She is up-to-date with eye exam. Advised to find a funeral planning counselor to assist with nail care. She has a small bruise on the right second toe and the left fifth toenail fell off with some bleeding in the nail bed. Advised to use triple antibiotic and protect the skin break. Assessment & Plan (07/18/2022 3:01 PM EDT): Her neuropathy pain continues to worsen. She finds it even worse when she is in warmer weather- like [place] when visiting her daughter. When her glucose levels are under better control her pain levels are better. Will try to get glucose levels under better control with the use of the sensor and fine tuning her insulin dosing based upon those readings. Refilled her gabapentin Type 2 diabetes mellitus wit h hyperglycemia, with long-term current use of insulin 07/18/2022 Assessment & Plan (12/20/2024 3:20 PM EDT): Control has greatly improved based upon the patient's freestyle rigoberto 3+ sensor download. No severe hypoglycemia. She has been having some lows since starting the mounjaro. She will correct and then is fine. Will increase her mounjaro dosing to 7.5 mg weekly. Will lower her insulins to help prevent the lows. Continue to work on eating healthy and being active. To call or message with any issues managing her glucose levels. Up to date with opho. Reviewed her last set of labs with her. Will send the referral for her to see nephrology based upon the elevation in her urine microalbumin levels. Assessment & Plan (07/20/2023 12:51 PM EDT): Control is poor based upon the patient's freestyle rigoberto 3 sensor download. No frequent or severe hypoglycemia. Her glucose levels are running so much higher since using the novolog compared to when she was using the humalog U-200. This insulin is not working well for her but her insurance refuses to cover the humalog U-200. Will further increase the novolog dosing to try and get her glucose levels better. Continue to work on eating healthy and being active. To call or message with any issues managing her glucose levels. Up to date with opho. Assessment & Plan (07/18/2022 2:59 PM EDT): Control is unknown as the patient is not checking her glucose levels frequently but is likely poor due to elevated glucose levels reviewed. No frequent or severe hypoglycemia. She has gone months without consistently checking her glucose levels due being without the rigoberto 2 sensor. When she had the sensor she was able to better control her glucose levels due to being able to fine tune her insulin dosing. Will send prescriptions to her pharmacy for the rigoberto sensor to start the PA process again. Will maintain her current insulin dosing as she is not having lows. Will send a prescription for test strips for her to use while she is awaiting the rigoberto sensor. Continue to work on eating healthy and being active. To call with any issues managing her glucose levels. Up to date with opho. Labs were done with PCP, will call to get results Encounters Date Type Department Care Team Description 01/25/2025 Telephone [facility] [address] [place] [address] [place] [phone] Dana Elena MA Medication Prior Authorization 12/20/2024 2:10 PM EDT Office Visit [facility] [address] [place] [address] [place] [address] Gemma Jameson PA-C Type 2 diabetes mellitus with hyperglycemia, with long-term current use of insulin (Primary Dx); Poorly controlled type 2 diabetes mellitus with peripheral neuropathy 11/21/2024 Refill [facility] [address] [place] [address] Medina Muse MD Medication Management (letter) 11/16/2024 Refill [facility] [address] [place] [address] [place] [address] Medina Muse MD Medication Refill from Last 3 Months Social History Tobacco Use Types Packs/Day Years Used Date Smoking Tobacco: Some Days Cigarettes Smokeless Tobacco: Never Tobacco Cessation:Ready to Q uit: Not Asked; Counseling Given: Not Answered Alcohol Use Standard Drinks/Week Comments Never 0 [...] on file Sexual Orientation Not on file Last Filed Vital Signs Vital Sign Reading Time Taken Comments Blood Pressure 142/72 09/20/2024 11:23 AM EDT Pulse 81 12/20/2024 2:34 PM EDT Temperature 36.2 C (97.2 F) 12/09/2022 2:21 PM EDT Respiratory Rate 95 07/17/2023 10:10 AM EDT Oxygen Saturation 97% 12/20/2024 2:34 PM EDT Inhaled Oxygen Concentration - - Weight 110.7 kg (244 lb) 12/20/2024 2:34 PM EDT Height 168.4 cm (5' 6.3 ) 12/20/2024 2:34 PM EDT Body Mass Index 39.03 12/20/2024 2:34 PM EDT Plan of Treatment Upcoming Encounters Date Type Department Care Team (Late st Contact Info) Description 04/04/2025 2:50 PM EST Office Visit [facility] [address] [place] [address] [place] [address] Gemma Jameson PA-C [address] [place] [phone] 06/27/2025 1:00 PM EST Office Visit [facility] [address] [place] [address] [place] [address] Medina Muse MD [address] [place] [phone] Health Maintenance Due Date Last Done Comments DEPRESSION SCREENING 1978 SMOKING Hx and SMOKELESS TOBACCO SCREENING 08/17/1979 HEPATITIS C SCREENING 1984 HIV ONE-TIME SCREENING (18-65 YEARS) 1984 PAP SMEAR 08/17/1987 COLOGUARD 08/17/2011 COLONOSCOPY 08/17/2011 COLORECTAL CANCER SCREENING 08/17/2011 FIT TEST 08/17/2011 FOBT 08/17/2011 SIGMOIDOSCOPY 08/17/2011 VIRTUAL COLONOSCOPY 08/17/2011 PNEUMOCOCCAL VACCINES (50+ years) (2 of 2 - PCV) 04/15/2015 04/15/2014, 12/01/2006 RSV VACCINE (1 - Risk 50-74 years 1-dose series) 2016 ZOSTER VACCINES (1 of 2) 2016 MAMMOGRAM 08/12/2019 08/11/2017 DIABETIC EYE EXAM 07/18/2022 INFLUENZA VACCINE (#1) 2024 7, 01/23/2016, 02/01/2015, Additional history exists HEMOGLOBIN A1C 12/21/2024 09/20/2024, 05/04, 02/16/2024, Additional history exists COVID-19 VACCINE ( season) 2025 BLOOD PRESSURE 06/22/2025 12/20/2024 CREATININE LEVEL 09/20/2025 09/20/2024, , 02/16/2024 POTASSIUM LEVEL 09/20/2025 09/20/2024, 05/04, 02/16/2024 Adult Td,Tdap Booster 08/06/2027 08/05/2017, 008 HEPATITIS A VACCINES Aged Out No long er eligible based on patient's age to complete this topic HIB VACCINES Aged Out No longer eligi ble based on patient's age to complete this topic MENINGOCOCCAL VACCINES (ACWY) Aged Out No longer eligible based on patient's age to complete this topic MENINGOCOCCAL VACCINES (B) Aged Out N o longer eligible based on patient's age to complete this topic Medical Devices Not on file Procedures Procedure Name Priority Date/Time Associated Diagnosis Comments HEMOGLOBIN A1C Routine 09/20/2024 12:53 PM EDT Poorly controlled type 2 diabetes mellitus with peripheral neuropathy COMPREHENSIVE METABOLIC PANEL Routine 09/20/2024 12:53 PM EDT Poorly controlled type 2 diabetes mellitus with peripheral neuropathy from Last 3 Months or Most Recently Relevant to Health Maintenance Results * (ABNORMAL) Comprehensive metabolic panel (09/20/2024 12:53 PM EDT) SODIUM 134 133 - 146 mmol/L [facility] POTASSIUM 5.1 3.3 - 5.1 mmol/L [facility] CHLORIDE 98 96 - 108 mmol/L [facility] CO2 27 21 - 35 mmol/L [facility] BUN 23(H) 6 - 19 mg/dL [facility] CREATININE 0.90 0.5 - 1.5 mg/dL [facility] GLUCOSE 392(H) 70 - 99 mg/dL [facility] ALBUMIN 3.5(L) 3.9 - 4.8 g/dL [facility] TOTAL PROTEIN 7.9 6.5 - 8.0 g/dL [facility] CALCIUM 9.6 8.4 - 10.3 mg/dL [facility] ALKALINE PHOSPHATASE 160(H) 39 - 117 U/L [facility] TOTAL BILIRUBIN 0.3 0.0 - 1.2 mg/dL [facility] AST 42(H) 0 - 37 U/L [facility] ALT 42(H) 0 - 40 U/L [facility] GLOBULIN 4.4 1 - 4.8 g/dL [facility] EGFR 74 >59 mL/min/1.7 3m2 [facility] Comment:Estimated glomerular filtration rate calculated using the CKD-EPI refit equation. ANION GAP 14 10 - 20 mmol/L [facility] Blood 09/20/2024 12:5 3 PM EDT 09/20/2024 1:08 PM EDT us Medina Muse MD LAB BLOOD ORDERABLES Final Res ult [facility] [address] [place] [phone] * (ABNORMAL) Hemoglobin A1c (09/20/2024 12:53 PM EDT) HEMOGLOBIN A1C 10.0(H) 4.3 - 5.8 % [facility] Blood 09/20/2024 12:5 3 PM EDT 09/20/2024 1:08 PM EDT us Medina Muse MD LAB BLOOD ORDERABLES Final Res ult [facility] [address] [place] [phone] from Last 3 Months or Most Recently Relevant to Health Maintenance Insurance MEDICARE PART A & B [facility] ONE CARE MEDICARE REPLACEMENT MEDICARE PART A & B Member Subscriber Plan / Payer (Ef fective 2016-Present) Name:Estefania Soto Member ID:[id number] Relation to Subscriber:Self Name:Estefania Soto Subscriber ID:[id number] Payer ID:[id number] Group ID:Not on file Type:Medicare Address: [employer] [address] CARE MEDICARE REPLACEMENT PER [place] [id number] MEDICARE PART A & B CARE MEDICARE REPLACEMENT [id number] [place] [id number] MEDICARE PART A & B CARE MEDICARE REPLACEMENT [id number] [place] [id number] MEDICARE PART A & B Member Subscriber Plan / Payer (Ef fective 2016-Present) Name:Estefania Soto Member ID:[id number] Relation to Subscriber:Self Name:Abdelrahman VallejozquezEstefania Subscriber ID:[id number] Payer ID:[id number] Group ID:Not on file Type:Medicare Address: [employer] [address] ONE CARE MEDICARE REPLACEMENT MEDICARE PART A & B [facility] ONE CARE MEDICARE REPLACEMENT Care Teams Mail Clerk Bills Relationship Specialty Start Date End Date Zoraida Li MD [address] [place] [address] PCP - General Family Medicine 07/07/22 Additional Source Comments The information contained in this document represents components of the legal health record. It is not the complete legal health record.[facility]
== END 2025-02-14 10:37 | disposition home or self-care (01) ==
LOC: HO.PMC 10:11
PROVIDERS: PCP Family Medicine; Visit Provider Nurse Practitioner Family
DX: M51.369 Other intervertebral disc degeneration, lumbar region without mention of lumbar back pain or lower extremity pain (principal); M47.816 Spondylosis without myelopathy or radiculopathy, lumbar region; M54.50 Low back pain, unspecified; G89.29 Other chronic pain
CPT/HCPCS: 99213; G2211

== ENCOUNTER → 2025-02-14 10:10 | Outpatient (BNVA) | payer OTHER, SELFPAY | PROVIDERS: PCP Family Medicine; Visit Provider Nurse Practitioner Family | DX: M47.816 Spondylosis without myelopathy or radiculopathy, lumbar region (principal); G89.29 Other chronic pain; M51.360 Other intervertebral disc degeneration, lumbar region with discogenic back pain only | CPT/HCPCS: 99212 ==

== ENCOUNTER 2025-03-10 15:35 | Outpatient (AMB) | payer OTHER, SELFPAY ==
[2025-03-10 15:30] VITALS: BP 150/75; PULSE 98; O2SAT 98; BMI 38.8
--- NOTE | 2025-03-10 15:37 | MHC.OFFVIS ---
Vital Signs 03/10/25 15:30 03/10/25 16:05 03/10/25 16:22 Height 5 ft 6 in Weight 240 lb 2 oz BMI 38.8 BP 150/75 H 167/80 H 183/86 H Blood Pressure Location Lt brachial Lt brachial Lt brachial Position Sitting Sitting Sitting Pulse 98 Pulse Source Pulse Oximeter Pulse Oximetry (%) 98 Oxygen Delivery Method Room Air Comment 15mins after qutenza application 30 mins after qutenza application Intake Visit Reasons: QUTENZA Intake Note: Pain today 09/10 Test Analyst Required: No Accompanied by: Self / Same As Patient Allergies amoxicillin (AMOXICILLIN) Allergy (Severe, Verified 03/10/25 15:55) ANAPHYLAXIS exenatide (From BYETTA) Allergy (Severe, Verified 03/10/25 15:55) ANAPHYLAXIS insulin detemir (From LEVEMIR U-100 INSULIN) Allergy (Severe, Verified 03/10/25 15:55) SORE THROAT insulin glargine (From LANTUS U-100 INSULIN) Allergy (Severe, Verified 03/10/25 15:55) YEAST INFECTION insulin glulisine (From APIDRA U-100 INSULIN) Allergy (Severe, Verified 03/10/25 15:55) UNKNOWN insulin regular (From NOVOLIN R REGULAR U-100 INSULN) Allergy (Severe, Verified 03/10/25 15:55) MUSCLE PAIN lisinopril Allergy (Severe, Verified 03/10/25 15:55) Cough penicillin V Allergy (Severe, Verified 03/10/25 15:55) Rash pioglitazone (From ACTOS) Allergy (Severe, Verified 03/10/25 15:55) HIVES insulin isophane (NPH) (From HUMULIN N NPH U-100 INSULIN) Allergy (Intermediate, Verified 03/10/25 15:55) YEAST INFECTION duloxetine (From CYMBALTA) Allergy (Unknown, Verified 03/10/25 15:55) UNKNOWN tizanidine Adverse Reaction (Severe, Verified 03/10/25 15:55) Anxiety HPI Comments Details: Patient presents for application of capsaicin 8% topical patch for diabetic neuropathy in bilateral feet. Patient continues to endorse lower back pain as well, stating that recent lumbar RFA did not alleviate her axial low back pain. Patient reports most recent S1C=7.1. She takes gabapentin and lidocaine patches for pain relief. Patient reports Qutenza does not alleviate most of her bilateral foot pain but does notice decreased burning sensation especially at night after each application. Denies any recent cough, cold, infection, fever or other significant changes in medical history since last office visit. Past Procedures: 12/23/24: Bilateral L3-L4 DR L5 MB RFA-0% 08/25/24: 4th Qutenza application for DPN 03/08/24: Bilateral Diagnostic SIJ injections-100% ongoing pain relief >1 week 11/13/23: Bilateral L3-L4-L5 MB RFA-75% ongoing pain relief 08/11/23: Diagnostic Bilateral L3-L4 DR L5 MBB-80-85% pain relief for 12 hours 08/10/23: 3rd Qutenza application for DPN 06/30/23: Diagnostic Bilateral L3-L4 DR L5 MBB-80% pain relief for 6.5 hours, ongoing 70% pain relief 05/15/23: 2nd Qutenza application for DPN 02/12/23: 1st Qutenza application for DPN PFS Medical History Tennis elbow MARIAM (obstructive sleep apnea) Vitamin D deficiency Familial hirsutism Hyperlipidemia Microalbuminuria Hypertension Depression Anxiety Hypercholesterolemia Type 2 diabetes mellitus with peripheral neuropathy Lumbar radiculopathy Right leg pain Surgical History Previous back surgery History of carpal tunnel release Hx of tubal ligation Family History Mother Hypertension Diabetes Father Hypertension Social History Household Members Other:: lives only, but has a [employer] daily Are you a primary manager care to a significant other at home: No Do you presently have visiting nurse or other home services: No Alcohol intake: never Patient Tobacco Use Status: Former Tobacco user Tobacco use type: Cigarette Years Smoked: 40 Second Hand Smoke Exposure: No Review of Systems Const All systems reviewed & are unremarkable except as noted in HPI and below Physical Exam Vital Signs: Last Vital Signs Pulse 98 03/10/25 15:58 BP 183/86 H 03/10/25 16:22 Pulse Ox 98 03/10/25 15:58 Oxygen Delivery Method Room Air 03/10/25 15:58 BMI result Body Mass Index 38.8 General: Appears afebrile. No acute distress. Alert and oriented. Mood and affect appropriate. Follows and participates in conversation appropriately. Respiratory effort is unlabored. No cough. Able to transition from sit to stand unassisted. Uses cane with ambulation. Ambulates with antalgic gait, slight limping present. Back/Spine/Pelvis Cervical Spine: cervical ROM normal and No Cervical spine tenderness Thoracic/Lumbar Spine: thoracic and lumbar spine normal to inspection, No Thoracic/lumbar spine scar(s), pain with thoraco-lumbar ROM, thoraco-lumbar ROM limited, No thoracic spinal tenderness and lumbar spinal tenderness at L3, at L4 and at L5 Sacroiliac joints: bilaterally tender to palpation Extrem Other: There is decreased sensation over the soles of the feet and the toes. No breaks in the skin. No soft tissue swelling, no redness or warmth. +2 pedal pulses bilaterally. Reports numbness, tingling and burning in both feet. General: Yes capillary refill normal, Yes no clubbing, cyanosis or edema and Yes no calf tenderness Office Procedures Topical Capsaicin Date(s) of prior application(s): See EMR for previous dates Main area of pain on the body: Bilateral feet Laterality: Bilateral Location of left foot pain: Anterior, Posterior, Plantar, Proximal, Dorsal, Medial, Lateral and Distal Location of right foot pain: Anterior, Posterior, Plantar, Proximal, Dorsal, Medial, Lateral and Distal Quality of pain: Aching, Nagging, Burning, Numb-like and Tiring Details:: Two patches, 560 cm2 were utilized per each foot. EMLA Cream (lidocaine 2.5% and prilocaine 2.5%) was applied at home by patient prior to application of the patches. The patient tolerated the procedure well. Patient?s vitals signs remained stable throughout the procedure. Patient was able to complete the stipulated 30 minutes of the therapeutic application without any discomfort. 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 Assessment & Plan Assessment & Plan (1) Chronic painful diabetic neuropathy: Code(s): E11.40 - Type 2 diabetes mellitus with diabetic neuropathy, unspecified Category: Medical (2) Lumbar spondylosis: Code(s): M47.816 - Spondylosis without myelopathy or radiculopathy, lumbar region Category: Medical (3) Lumbar degenerative disc disease: Code(s): M51.36 - Other intervertebral disc degeneration, lumbar region Category: Medical (4) Chronic low back pain without sciatica: Code(s): M54.50 - Low back pain, unspecified; G89.29 - Other chronic pain Category: Medical (5) Chronic painful diabetic neuropathy: Code(s): E11.40 - Type 2 diabetes mellitus with diabetic neuropathy, unspecified Plan Patient is status post application of topical capsaicin 8% for chronic diabetic peripheral neuropathy in bilateral feet. Patient tolerated the procedure without significant discomfort with application of EMLA cream prior to the procedure. She was discharged home in stable condition with discharge instructions. Next Qutenza scheduled in 3 months. All questions and concerns have been answered and patient agreed with the plan. Follow up as needed. Patient was informed and verbally consented to the use of an ambient scribe for clinic note documentation during this visit. Greater than 40 minutes were spent in therapeutic application, documentation, chart review and in coordination of the care. Orders: Orders AMB Capsaicin Patch - Practice Supplied Today E11.40 - Type 2 diabetes mellitus with diabetic neuropathy, unspecified Medications: Discontinued oxycodone Partial Fill upon patient request. Discontinued Reason: Patient no longer taking 10 mg PO BID 10 days PRN 20 tabs 0RF pain (scale score 7-10) Coding Level of Care Code Est Pt Level 4 (20443) Complex EM visit Add On G2211 Diagnoses Chronic painful diabetic neuropathy E11.40 Lumbar spondylosis M47.816 Lumbar degenerative disc disease M51.36 Chronic low back pain without sciatica M54.50; G89.29
[2025-03-10 16:05] VITALS: BP 167/80
[2025-03-10 16:22] VITALS: BP 183/86
--- OUTSIDE RECORDS SUMMARY | 2025-03-10 16:39 | XMS_ITS | Data Portability ---
Author Organization [place] [facility] Address [address] [place] [address] Care Team Providers Care Etcher Electrolytic Name Role Phone JODY NOVAK Primary Care Provider [phone] Assessment Encounter Date Assessment Date Assessment LastModified [...] Organization Details Recorded Time No complaint s 842595458 Active Status: 'I'; Not Available [facility] 4 09:20:56 Impingeme nt syndrome of left shoulder region 947223805292 104 Active 2012 Status: 'A'; Not Available [facility] 4 11:43:31 Trigger finger of right hand [id number] 62525 Active 2018 Problem Code: M65.331; Problem Code Type: ICD-10; Status: 'A'; Not Available [facility] 4 11:43:31 Problem Notes None recorded. Procedures Surgical History Date Name Laterality Status Provider Name and Address Organization Details Recorded Time 5 Trigger Finger Kenalog Injection completed Gemma Sylvester MD [address] [place] [address] [address], [place], [address], [facility] 09/19/2024 15:11:35 Imaging Results None recorded. Procedure Notes None recorded. Medical Equipment None Reported. Allergies Allergen ID Allergen Name Allergen Category Reaction Reaction Severity Criticality Documentation Date Start Date Code Code System Note Provider Name and Address Organization Details Recorded Time 141516 Product containin g penicilli n (product) medicatio n Not available Not available Not available 07/06/20232012 58593 8001 SNOMED Aller gyRea ction : 'Skin React ion'; Not Available [facility] 4 16:01:10 578399 Cymbalta medicatio n Not available Not available Not available 07/06/20232014 99538 4 RxNorm Aller gyNam e: 'Cymb estuardo Cpep' ; Not Available [facility] 4 16:01:11 195091 Cipro medicatio n Not available Not available Not available 07/06/20232014 11058 3 RxNorm Not Available [facility] 4 16:01:11 226764 Byetta medicatio n Not available Not available Not available 09/19/2024 66653 1 RxNorm MILADY KAI cholo, [facility] 5 14:58:28 819106 Lantus medicatio n Not available Not available Not available 09/19/2024 54281 1 RxNorm MILADY KAI cholo, [facility] 5 14:58:37 Medications Name Sig Start Date [...] Updated DateTime 09/19/2024 167.64 cm 39.2 kg/m2 209346.95 g MILADY QUINN [place] [facility] 09/19/2024 14:58:12 Social History None recorded. Functional Status None recorded. Mental Status None recorded. Family History Nothing Reported. Medical History No medical history recorded. Gynecological HistoryNo gynecological history recorded. Obstetrics History GPAL:G 0 P 0 0 0 0 Past Encounters Encounter ID Performer Location Encounter Start Date Encounter Closed Date Diagnosis/Indication Diagnosis SNOMED-CT Code Diagnosis ICD10 Code Diagnosis IMO Codes Diagnosis Note [id number] MD JASON [facility] [place] [address] [place] [address] 09/19/2024 14:26:42 09/20/2024 14:42:59 Triggering of digit 651586284 M65.997 [id number] Health Concerns Section Related Observation LastModified by Organization Detai ls LastModified Time None Recorded Concern Status LastModified by Organization Details LastModified Time None Recorded Advance Directives Directive None Recorded Payers Insurance Date Sequence Insurance Name Policy Number Policy Cordero Covered Member ID Cordero Member ID Guarantor Name 09/19/2024 1 [facility] - DOS ON OR AFTER 2022 - ONE CARE (MEDICARE REPLACEMENT/ADV ANTAGE - HMO) Estefania yeboah [id number] Estefania Buck Notes Date Note Type Note Provider Name and Address Organization Details Recorded Time 09/19/2024 text/html ROS as noted in the HPI 59 yo female known to me having undergone a left ring trigger finger release in 03/2022, here today for eval of left long trigger finger. She describes pain and locking in the left long finger. Gemma Sylvester MD [address] [place] [address] [address], [place], [address], [facility] [place] [facility] 09/19/2024 16:27:22 OBGyn Episode No OBEpisode recorded.
--- OUTSIDE RECORDS SUMMARY | 2025-03-10 16:39 | XMS_ITS | Clinical Summary ---
Author Organization [facility] Address [address] [place] [phone] Phone Care Team Providers Care Under Seal Operator Name Role Phone Zoraida Li MD Primary Care Provider [phone] Allergies Active Allergy Reactions Criticality Noted Date [...] with ophtho. Needs to find a new acid polymerization operator. Labs ordered Assessment & Plan (02/18/2024 5:06 [...] with ophtho. Needs to find a new acid polymerization operator. Labs ordered Assessment & Plan (12/09/2022 4:22 [...] [facility] than from [facility]. I asked her to call if has [...] with eye exam. Advised to find a acid polymerization operator to assist with nail care. She has [...] when she is in warmer weather- like [place] when visiting her daughter. When her glucose [...] Type Department Care Team Description 01/25/2025 Telephone [facility] [address] [place] [address] [place] [phone] Dana Elena MA Medication Prior Authorization 12/20/2024 2:10 PM EDT Office Visit [facility] [address] [place] [address] [place] [address] Gemma Jameson PA-C Type 2 diabetes mellitus with hyperglycemia, with long-term current use of insulin (Primary Dx); Poorly controlled type 2 diabetes mellitus with peripheral neuropathy from Last 3 Months Social History Tobacco [...] 2:50 PM EST Office Visit [facility] [address] [place] [phone] Gemma Jameson PA-C [address] [place] [phone] 06/27/2025 1:00 PM EST Office Visit [facility] [address] [place] [address] [place] [address] Medina Muse MD [address] [place] [phone] Health Maintenance Due Date Last Done Comments [...] mellitus with peripheral neuropathy COMPREHENSIVE METABOLIC PANEL (CMP) Routine 09/20/2024 12:53 PM EDT Poorly controlled type 2 diabetes mellitus with peripheral neuropathy from Last 3 Months or Most Recently Relevant to Health Maintenance Results * (ABNORMAL) Comprehensive metabolic panel (09/20/2024 12:53 PM EDT) SODIUM 134 133 - 146 mmol/L [facility] POTASSIUM 5.1 3.3 - 5.1 mmol/L [facility] CHLORIDE 98 96 - 108 mmol/L [facility] CO2 27 21 - 35 mmol/L [facility] BUN 23(H) 6 - 19 mg/dL [facility] CREATININE 0.90 0.5 - 1.5 mg/dL [facility] GLUCOSE 392(H) 70 - 99 mg/dL [facility] ALBUMIN 3.5(L) 3.9 - 4.8 g/dL [facility] TOTAL PROTEIN 7.9 6.5 - 8.0 g/dL [facility] CALCIUM 9.6 8.4 - 10.3 mg/dL [facility] ALKALINE PHOSPHATASE 160(H) 39 - 117 U/L [facility] TOTAL BILIRUBIN 0.3 0.0 - 1.2 mg/dL [facility] AST 42(H) 0 - 37 U/L [facility] ALT 42(H) 0 - 40 U/L [facility] GLOBULIN 4.4 1 - 4.8 g/dL [facility] EGFR 74 >59 mL/min/1.7 3m2 [facility] Comment:Estimated glomerular filtration rate calculated using the CKD-EPI refit equation. ANION GAP 14 10 - 20 mmol/L [facility] Blood 09/20/2024 12:5 3 PM EDT 09/20/2024 1:08 PM EDT us Medina Muse MD LAB BLOOD BKR ORDERABLES Final Result Performing Organization Address City/State/[facility] Co de Phone Number [address] [address] * (ABNORMAL) Hemoglobin A1c (09/20/2024 12:53 PM EDT) HEMOGLOBIN A1C 10.0(H) 4.3 - 5.8 % [facility] Blood 09/20/2024 12:5 3 PM EDT 09/20/2024 1:08 PM EDT Medina Muse MD LAB BLOOD BKR ORDERABLES Final Result [facility] [address] [place] [address] from Last 3 Months or Most Recently Relevant to Health Maintenance Insurance [id number] [place] [id number] MEDICARE PART A & B [facility] MEDICARE REPLACEMENT [id number] [place] [id number] MEDICARE PART A & B [employer] MEDICARE REPLACEMENT MEDICARE PART A & B [facility] CARE MEDICARE REPLACEMENT [id number] [place] [id number] MEDICARE PART A & B [facility] CARE MEDICARE REPLACEMENT MEDICARE PART A & B [facility] CARE MEDICARE REPLACEMENT MEDICARE PART A & B [facility] ONE CARE MEDICARE REPLACEMENT Care Teams Under Seal Operator Relationship Specialty Start Date End Date Zoraida Li MD [address] [place] [address] PCP - General Family Medicine 07/07/22 Additional Source Comments The information contained in this document represents components of the legal health record. It is not the complete legal health record.[facility]
--- OUTSIDE RECORDS SUMMARY | 2025-03-10 16:39 | XMS_ITS | Clinical Summary ---
Author Organization [facility] Address [address] [place] [address] Care Team Providers Care Buying Intern Name Role Phone Zoraida Li MD Primary Care Provider [phone] Allergies Active Allergy Reactions Criticality Noted Date [...] age to complete this topic Care Teams Buying Intern Relationship Specialty Start Date End Date Zoraida Li MD [address] [place] [id number] PCP - General Family Medicine 04/04/22
--- OUTSIDE RECORDS SUMMARY | 2025-03-10 16:40 | XMS_ITS | Data Portability ---
Author Organization [facility], Main Office Address [address] [place] [address] Care Team Providers Care Food And Beverage Coordinator Name Role Phone IVETTE MARTINES Urogynecologist VINCENT MUSE Transport Rn [facility] Pain Management JEANNIE METZ Primary Care Provider ROXANN SOSA Food Safety Scientist Assessment No assessment recorded. Plan of Treatment Reminders Order Date Submit Date Provider Last Modified By Organization Details Last Modified Time Details Appointments None recorded. Lab microalbum in, urine 2017 018 [facility], [address], [address], [place], [address], 8 14:18:56 hemoglobin A1C, fingerstic k 2017 018 In-Office Order, Internal Use Only DO Not Attach Compendium DO Not Attach Compendium, Do Not Delete/merge, 8 09:51:21 glucose, fingerstic k, blood 2017 018 In-Office Order, Internal Use Only DO Not Attach Compendium DO Not Attach Compendium, Do Not Delete/merge, 8 09:51:21 lipid panel, serum 2017 018 [facility], [address], [address], [place], [address], 8 14:47:06 CMP, serum or plasma 2017 018 [facility], [address], [place], [address], 8 14:47:05 Referral lead painter referral - 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 PT. is on Lyrica. Needs diabetic foot care. 2017 018 Not available 8 10:19:37 diabetic ophthalmol ogy referral - Diabetic eye exam. 2017 018 [email or web address] Not available 9 10:35:[address]/dietiti an referral 2017 018 [email or web address] Not available 8 10:19:[address] referral 2017 018 abolcun Not available 8 11:11:58 urogynecol ogist referral - this pt is at no increased risk for upcoming bladder-tsering tox procedurer on Mar 02, 2017. There are no contraindi cations- Pt feels well and will continue current tx. 2016 017 kathi Martines MD, [facility] [place], [address], 7 09:00:31 Procedures None recorded. Surgeries None recorded. Imaging MAMMO, screening, bilateral - Perform Diagnostic Mammogram and Breast Ultrasound if needed / Perform Ultrasound Guided Aspiration and/or Breast Biopsy if warranted 2017 018 [facility], [address] [place], [address], 8 11:28:39 XR, lumbosacra l spine - low back pain with radiculopa thy 2016 017 [facility], [address] [place], [address], 7 15:26:52 XR, sacroiliac joint(s) - left low back pain with radiculopa thy 2016 017 [facility], [address] , [place], [address], 7 15:26:53 Medication Orders Chantix Starting Month Box 0.5 mg (11)-1 mg (42) tablets in dose pack 2017 018 [facility][id number], [address] [facility] [place], [address], 8 10:04:23 Chantix Continuing Month Box 1 mg tablet 2017 018 [facility][id number], [address] [facility] [place], [address], 8 10:04:21 Temovate 0.05 % topical ointment 2017 018 [email or web address] #[id number], [address] [facility] [place], [address], 8 13:42:34 meloxicam 15 mg tablet 2016 017 [facility] #1130, [phone] [place], [address], 8 09:59:25 methocarba mol 750 mg tablet 2016 017 [facility] #1130, [phone] [place], [address], 7 09:36:04 acetaminop hen 300 mg-codeine 30 mg tablet 2016 017 [facility]1130, [phone] [place], [address], 8 09:58:39 Patient TargetsNo targets recorded. Patient Instructions Encounter Date Encounter Id Patient Instructions Last Modified By Organization Details Last Modified Time 09/30/2016 [id number] Female Urinary Tract Infection (UTI): Care Instructions Not available 09/30/2016 14:09:22 Call or return for worsening or concerns [email or web address] Not available 09/30/2016 10:28:[address] [facility] follow up visit, all current and discharge [...] care. [email or web address] Not available 09/30/2016 17:31:22 01/06/2017 [id number] acute low back pain: exercises Not available 01/06/2017 15:45:22 getting back to normal after low back pain: care instructions Not available 01/06/2017 15:45:22 Call or return for worsening or concerns [email or web address] Not available 01/06/2017 15:36:08 I have reviewed the note and agree with the assessment and plan of care. [email or web address] Not available 01/06/2017 16:37:20 08/03/2017 [id number] preventing falls: care instructions mdalessandro Not available 08/03/2017 10:24:23 Cervical Cancer Screening mdalessandro Not available 08/03/2017 10:24:23 11/16/2017 [id number] dash diet: care instructions Not available 11/16/2017 09:55:08 high cholesterol: care instructions Not available 11/16/2017 09:51:21 heart-healthy diet: care instructions Not available 11/16/2017 09:51:21 Starting a Weight-Loss Plan: Care Instructions Not available 11/16/2017 10:07:45 Nutrition Referral and [...] and will continue current tx. Referring Physician: Leilani Burns, Internal Medicine, Encounter Date: 02/19/2017 [employer]ocker Room Attendant Referral for Sc reening for malignant neoplasm of cervix Referring Physician: Leilani Burns, Internal Medicine, Encounter Date: 08/03/2017 Expedition Supervisor Referral for Diso rder of nervous system due to diabetes mellitus Diabetes Mellitus TYpe II with diabetic peripheral neuropathy. PT. is on Lyrica. Needs diabetic foot care. Referring Physician: Jeannie Metz Internal Medicine, Encounter Date: 11/16/2017 Diabetic Ophthalmology Refer ral for Uncontrolled type 2 diabetes mellitus Diabetic eye exam. Referring Physician: Jeannie Metz, Internal Medicine, Encounter Date: 11/16/2017 Child Nurse/dietitian Refer ral for Body mass index 30+ - obesity Referring Physician: Jeannie Metz, Internal Medicine, Encounter Date: 11/16/2017 Results Created Date Observation Date Name Description Value Unit Range Abnormal Flag Note LastModifiedBy Organization Detail LastModifiedTime 09/20/1909/19/2016 urina lysis , dipst ick Leukocytes Negati ve Not Available In-Office Order Internal Use Only DO Not Attach Compendium DO Not Attach Compendium, Do Not Delete/merge, 09/19/2016 10:57:50 09/20/1909/19/2016 urina lysis , dipst ick Nitrite positi ve Not Available In-Office Order Internal Use Only DO Not Attach Compendium DO Not Attach Compendium, Do Not Delete/merge, 09/19/2016 10:57:50 09/20/1909/19/2016 urina lysis , dipst ick Urobilinogen .2 Not Available In-Of fice Order Internal Use Only DO Not Attach Compendium DO Not Attach Compendium, Do Not Delete/merge, 09/19/2016 10:57:50 09/20/1909/19/2016 urina lysis , dipst ick Protein Negati ve Not Available In-Office Order Internal Use Only DO Not Attach Compendium DO Not Attach Compendium, Do Not Delete/merge, 09/19/2016 10:57:50 09/20/1909/19/2016 urina lysis , dipst ick pH 6.0 Not Available In-Office Order Internal Use Only DO Not Attach Compendium DO Not Attach Compendium, Do Not Delete/merge, 09/19/2016 10:57:50 09/20/1909/19/2016 urina lysis , dipst ick Blood Non-He molyze d: Trace Not Available In-Office Order Internal Use Only DO Not Attach Compendium DO Not Attach Compendium, Do Not Delete/merge, 09/19/2016 10:57:50 09/20/1909/19/2016 urina lysis , dipst ick Specific [place] 1.015 Not Available In-Off ice Order Internal Use Only DO Not Attach Compendium DO Not Attach Compendium, Do Not Delete/merge, 09/19/2016 10:57:50 09/20/1909/19/2016 urina lysis , dipst ick Ketone Negati [...] DO Not Attach Compendium, Do Not Delete/merge, [id number] 09/19/2016 10:57:50 09/20/1909/20/2016 urina lysis , compl [...] Choice, 09/21/2016 10:27:40 09/20/1909/21/2016 cultu re, urine trimeth/sulf amethox TRIMET H/SULF AMETHO X RESIST ANT resistant Not Available [facility] (Centralized Electronic Ordering - All Locations) Patient Can Go To The Location Of Their Choice, 09/21/2016 10:27:40 09/20/1909/21/2016 cultu re, urine tetracycline TETRAC YCLINE SUSCEP TIBLE susceptib le Not Available [facility] (Centralized Electronic Ordering - All Locations) Patient Can Go To The Location Of Their Choice, 09/21/2016 10:27:40 11/17/1911/16/2017 gluco sekorey rstic k, blood Blood Glucose: mg/dl 255 Not Available In-Off ice Order Internal Use Only DO Not Attach Compendium DO Not Attach Compendium, Do Not Delete/merge, [id number] 11/16/2017 09:34:27 11/17/19 18 11/16/2017 hemog lobin A1C, korey rstic k HA1C 10.0 % 4-6 Not Available In-Office Order Internal Use Only DO Not Attach Compendium DO Not Attach Compendium, Do Not Delete/merge, 11/16/2017 09:33:53 11/19/19 18 11/18/2017 micro album in, urine micro-albumi n 146.4 mg/L (0-20) high Not Available [facility] (Centralized Electronic Ordering - All Locations) Patient Can Go To The Location Of Their Choice, 11/18/2017 14:18:56 11/19/1911/18/2017 micro album in, urine malb/creat ratio 130.5 [...] Their Choice, 11/18/2017 14:18:56 11/19/19 18 11/18/2017 CMP, serum [...] To The Location Of Their Choice, [facility] 11/18/2017 14:47:05 11/19/1911/18/2017 lipid panel , serum cholesterol, total 142 mg/dL (<200) Not Available [facility] (Centralized Electronic Ordering - All Locations) Patient Can Go To The Location Of Their Choice, [facility] 11/18/2017 14:47:06 11/19/1911/18/2017 lipid panel , serum triglyceride 123 mg/dL (<150) Not Available [facility] (Centralized Electronic Ordering - All Locations) Patient Can Go To The Location Of Their Choice, [facility] 11/18/2017 14:47:06 11/19/1911/18/2017 lipid panel , serum HDL chol 42 mg/dL (>39) Not Available [facility] (Centralized Electronic Ordering - All Locations) Patient Can Go To The Location Of Their Choice, [facility] 11/18/2017 14:47:06 11/19/1911/18/2017 lipid panel , serum LDL cholesterol, calculated 75 mg/dL (0-130 ) Not Available [facility] (Centralized Electronic Ordering - All Locations) Patient Can Go To The Location Of Their Choice, [facility] 11/18/2017 14:47:06 11/19/1911/18/2017 lipid panel , serum non HDL cholesterol (calc) 100 mg/dL (<160) Not Available [facility] (Centralized Electronic Ordering - All Locations) Patient Can Go To The Location Of Their Choice, [facility] 11/18/2017 14:47:06 09/25/19 17 09/23/2016 , blessing y No observ ation record ed. [email or web address] Not Available 17:51:26 01/08/20 17 01/06/2017 XR, lumbo sacra l spine No observ ation record ed. [email or web address] [facility] [address], [address], 01/09/2017 14:52:34 01/08/20 17 01/06/2017 XR, sacro iliac joint (s) No observ ation record ed. [email or web address] [facility] [address] [address], [place], [address], 01/09/2017 14:52:34 08/18/19 18 08/11/2017 MAMMO , scree [place], bilat eral No observ ation record ed. [email or web address] [facility] [address] [facility], [place], [address], 08/17/2017 16:21:15 Result Notes None recorded. Problems Name Problem SNOMED Code Status Onset Date Resolution Date Notes Provider Name and Address Organization Details Recorded Time Mya l hyperten jim 11698996 Active Thalia emmanuel [facility] 8 14:05:25 Hyperlip idemia 11036146 Active Thalia emmanuel [facility] 8 14:05:25 Diabetes mellitus 61922452 Completed 11/16/2017 Jeannie Metz PA-C [address] [facility] [address], [place], [address] , [facility] 8 09:55:17 Low back pain 637495470 Completed 08/21/2016 Dyan emmanuel [facility] 7 08:56:16 Gastroes ophageal reflux disease 372812360 Active Thalia emmanuel [facility] 8 14:05:25 Screenin g for malignan t neoplasm of breast Completed 09/30/2016 JEM Barnett, [facility] 7 10:15:40 Constipa tion 85873449 Completed 08/21/2016 Dyan emmanuel [facility] 7 08:55:40 Renal disorder due to type 2 diabetes mellitus 077520475 Active Thalia emmanuel [facility] 8 14:05:25 Divertic ulitis of colon 832511455 Active Thalia emmanuel [facility] 8 14:05:25 Dysuria 24551341 Completed 09/16/2016 Dyan emmanuel [facility] 7 15:45:17 Influenz a vaccine needed 44303174344 06 Completed 08/21/2016 Dyan emmanuel [facility] 7 08:55:43 History of clinical finding in subject 284243029 Completed 08/21/2016 Dyan emmanuel [facility] 7 08:56:29 Hirsutis m 474707643 Active Thalia emmanuel [facility] 8 14:05:25 Laborato ry procedur e performe d 493838036 Completed 08/21/2016 Dyan emmanuel [facility] 7 08:56:04 Tobacco user 303721176 Active Thalia emmanuel [facility] 8 14:05:25 Proteinu radha 15753248 Active Thalia emmanuel [facility] 8 14:05:25 Backache 322052325 Completed 08/21/2016 Dyan emmanuel [facility] 7 08:55:50 Screenin g for malignan t neoplasm of cervix Completed 08/21/2016 Dyan emmanuel [facility] 7 08:56:00 Depressi ve disorder 48633714 Completed 05/28/2014 Leilani emmanuel [facility] 6 12:21:01 Acute vaginiti s 80446411 Completed 08/21/2016 Dyan emmanuel [facility] 7 08:56:09 Vaginiti s 55218352 Completed 08/21/2016 Dyan emmanuel [facility] 7 08:56:22 Spasm 67314172 Completed 08/21/2016 Dyan emmanuel [facility] 7 08:56:33 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 12739259 Active Thalia Alvarez null, [facility] 8 14:05:25 Major depressi ve disorder 751608870 Active Thalia Alvarez null, [facility] 8 14:05:25 Pain in pelvis 39570142 Completed 08/21/2016 Dyan emmanuel, [facility] 7 08:56:20 Leukocyt osis 110971673 Active Thalia Alvarez null, [facility] 8 14:05:25 Steatoti c liver disease 343278047 Active Thalia Alvarez null, [facility] 8 14:05:25 Shoulder joint pain 840765695 Completed 08/21/2016 Dyan emmanuel, [facility] 7 08:56:14 Chronic pain 45303986 Active Thalia Alvarez null, [facility] 8 14:05:25 Disorder of nervous system due to diabetes mellitus 617323477 Active Thalia Alvarez null, [facility] 8 14:05:25 Urinary incontin ence 404424391 Active Thalia Alvarez null, [facility] 8 14:05:25 Vaginiti s and vulvovag initis Completed 08/21/2016 Dyan emmanuel, [facility] 7 08:55:57 Lateral epicondy litis 596620889 Active Thalia emmanuel, [facility] 8 14:05:25 Edema of the upper extremit y 692815213 Completed 08/21/2016 Dyan Acostaevelina JEM cholo, [facility] 7 08:55:46 Influenz a vaccine needed 45876619153 06 Completed 200711/22/2013 RECORDED 08/05/19 08 10:33AM BY JEM CARDENAS, HISTORIC AL SUMMARY Dyan Acostaevelina JEM cholo, [facility] 7 08:55:43 Acute bronchit is 37212806 Completed 200711/22/2013 RECORDED 02/01/20 08 10:12AM BY PASCUAL PUTNAM MA, ANNOTATI ON/ADDEN DUM Leilani emmanuel, [facility] 6 12:21:01 General examinat ion of patient Completed 200711/22/2013 RECORDED 02/01/20 08 10:12AM BY PASCUAL PUTNAM MA, ANNOTATI ON/ADDEN DUM Leilani emmanuel, [facility] 6 12:21:01 Administ ration of bacteria l and viral vaccine Completed 200711/22/2013 RECORDED 02/01/20 08 10:14AM BY PASCUAL PUTNAM MA, OFFICE VISIT Leilani emmanuel, [facility] 6 12:21:01 Candidal vulvovag initis 76550297 Completed 200711/22/2013 RECORDED 02/01/20 08 10:12AM BY PASCUAL PUTNAM MA, ANNOTATI ON/ADDEN DUM Leilani emmanuel, [facility] 6 12:21:01 Acute bronchit is 56298439 Completed 200712/12/2013 RECORDED 02/01/20 08 10:12AM BY PASCUAL PUTNAM MA, ANNOTATI ON/ADDEN DUM Leilani evans null, [facility] 6 12:21:01 General examinat ion of patient Completed 200712/12/2013 RECORDED 02/01/20 08 10:12AM BY PASCUAL PUTNAM MA, ANNOTATI ON/ADDEN DUM Leilani Henry ro null, [facility] 6 12:21:01 Administ ration of bacteria l and viral vaccine Completed 200712/12/2013 RECORDED 02/01/20 08 10:14AM BY PASCUAL PUTNAM MA, OFFICE VISIT Leilani emmanuel, [facility] 6 12:21:01 Candidal vulvovag initis 92742443 Completed 200712/12/2013 RECORDED 02/01/20 08 10:12AM BY PASCUAL PUTNAM MA, ANNOTATI ON/ADDEN DUM Leilani Henry ro null, [facility] 6 12:21:01 Uncontro lled type 2 diabetes mellitus 690947426 Completed 200811/22/2013 RECORDED 05/30/19 09 7:36AM BY PASCUAL PUTNAM MA, ANNOTDOMONIQUE ON/ADDEN DUM Leilani evans null, [facility] 6 12:21:01 Uncontro lled type 2 diabetes mellitus 640790578 Completed 200812/12/2013 RECORDED 05/30/19 09 7:36AM BY PASCUAL PUTNAM MA, ANNOTDOMONIQUE ON/ADDEN DUM Leilani evans null, [facility] 6 12:21:01 Influenz a vaccine needed 63773285404 06 Completed 200912/12/2013 DATE: 04/23/20 10; RECORDED 11/16/19 14 12:57PM BY PASCUAL PUTNAM MA, ANNOTATI ON/ADDEN DUM Dyan Braun MA null, [facility] 7 08:55:43 Tobacco dependen ce syndrome 86422977 Completed 201111/22/2013 RECORDED 06/21/19 12 11:13AM BY PASCUAL PUTNAM MA, ANNOTATI ON/ADDEN DUM Leilani D'Alessand ro null, [facility] 6 12:21:01 Tobacco dependen ce syndrome 59771303 Completed 201112/12/2013 RECORDED 06/21/19 12 11:13AM BY PASCUAL PUTANM MA, ANNOTATI ON/ADDEN DUM Leilani Acosta'Alessand ro null, [facility] 6 12:21:01 Allergy Completed 201111/22/2013 RECORDED 11/17/19 12 9:29AM BY JAYASHREE DOUGLASATI ON/ADDEN DUM Leilani Acosta'Alessand ro null, [facility] 6 12:21:01 Screenin g for malignan t neoplasm of breast Completed 201111/22/2013 RECORDED 11/17/19 12 9:29AM BY JAYASHREE DOUGLASATI ON/ADDEN DUM Jessica Gomez MA null, [facility] 7 10:15:40 Risk of exposure to communic able disease 077213085 Completed 201111/22/2013 RECORDED 11/17/19 12 9:29AM BY JAYASHREE DOUGLASATI ON/ADDEN DUM Leilani Acosta'Alessand ro null, [facility] 6 12:21:01 Dysfunct ional uterine bleeding Completed 201111/22/2013 STORY: SEVERE CRAMPING ; RECORDED 11/17/19 12 9:29AM BY RICK DOUGLAS ON/ADDEN DUM Leilani Acosta'Alessand ro null, [facility] 6 12:21:01 Ingrowin g nail 472421226 Completed 201111/22/2013 RECORDED 11/17/19 12 9:29AM BY RICK DOUGLAS ON/ADDEN DUM Leilani Leiand ro null, [facility] 6 12:21:01 Polycyst ic ovaries Completed 201111/22/2013 RECORDED 11/17/19 12 9:29AM BY RICK DOUGLAS ON/ADDEN DUM Leilani Henry ro null, [facility] 6 12:21:01 Proteinu radha 97447249 Completed 201111/22/2013 RECORDED 11/17/19 12 9:29AM BY RICK DOUGLAS ON/ADDEN DUM Leilani Henry ro null, [facility] 6 12:21:01 Eruption [id number] Completed 201111/22/2013 IMPRESSI ON: PT WITH PROGRESS PAMELA HIGHLY PRURITIC RASH X PAST WEEK, HANDS, FEET NOW TORSO BREAST AND ABDO AFFECTED . 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 HIGHLY SUSPICIO US FOR SCABIES INFX. ADVISED RE USE OF MED, CLEANING AND LAUNDERI NG AT HOME. OOW X TODAY AND W/E, NOTE PROVIDED . TO CALL IF RASH PERSISTS AFTER TX.; RECORDED 11/17/19 12 9:29AM BY RICK DOUGLAS ON/ADDEN DUM Leilani Henry ro null, [facility] 6 12:21:01 Sleep apnea 42820740 Completed 201111/22/2013 RECORDED 11/17/19 12 9:29AM BY RICK DOUGLAS ON/ADDEN DUM Leilani Henry ro null, [facility] 6 12:21:01 Type 2 diabetes mellitus without complica tion 929772280 Completed 201111/22/2013 RECORDED 11/17/19 12 9:29AM BY JAYASHREE DOUGLASATI ON/ADDEN DUM Leilani D'Alessand ro null, [facility] 6 12:21:01 Allergy Completed 201112/12/2013 RECORDED 11/17/19 12 9:29AM BY IVETH OSUNA I ANNOTATI ON/ADDEN DUM Leilani D'Alessand ro null, [facility] 6 12:21:01 Screenin g for malignan t neoplasm of breast Completed 201112/12/2013 RECORDED 11/17/19 12 9:29AM BY IVETH OSUNA I ANNOTATI ON/ADDEN DUM Jessica Gomez MA null, [facility] 7 10:15:40 Risk of exposure to communic able disease 225107955 Completed 201112/12/2013 RECORDED 11/17/19 12 9:29AM BY JAYASHREE DOUGLASATI ON/ADDEN DUM Leilani Elsy'Alessand ro null, [facility] 6 12:21:01 Dysfunct ional uterine bleeding Completed 201112/12/2013 STORY: SEVERE CRAMPING ; RECORDED 11/17/19 12 9:29AM BY JAYASHREE DOUGLASATI ON/ADDEN DUM Leilani D'Alessand ro null, [facility] 6 12:21:01 Ingrowin g nail 573421920 Completed 201112/12/2013 RECORDED 11/17/19 12 9:29AM BY JAYASHREE DOUGLASATI ON/ADDEN DUM Leilani D'Alessand ro null, [facility] 6 12:21:01 Polycyst ic ovaries Completed 201112/12/2013 RECORDED 11/17/19 12 9:29AM BY JAYASHREE DOUGLASATI ON/ADDEN DUM Leilani D'Alessand ro null, [facility] 6 12:21:01 Eruption [id number] Completed 201112/12/2013 IMPRESSI ON: PT WITH PROGRESS PAMELA HIGHLY PRURITIC RASH X PAST WEEK, HANDS, FEET NOW TORSO BREAST AND ABDO AFFECTED . 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 HIGHLY SUSPICIO US FOR SCABIES INFX. ADVISED RE USE OF MED, CLEANING AND LAUNDERI NG AT HOME. OOW X TODAY AND W/E, NOTE PROVIDED . TO CALL IF RASH PERSISTS AFTER TX.; RECORDED 11/17/19 12 9:29AM BY RICK DOUGLAS ON/ADDEN DUM Leilani Henry ro null, [facility] 6 12:21:01 Sleep apnea 26825409 Completed 201112/12/2013 RECORDED 11/17/19 12 9:29AM BY RICK DOUGLAS ON/ADDEN DUM Leilani Henry ro null, [facility] 6 12:21:01 Type 2 diabetes mellitus without complica tion 370075662 Completed 201112/12/2013 RECORDED 11/17/19 12 9:29AM BY RICK DOUGLAS ON/ADDEN DUM Leilani Henry ro null, [facility] 6 12:21:01 Fibromyo sitis 34189281 Completed 201111/22/2013 STORY: DUE TO ATORVAST ATIN (TOLERAT ES SIMVASTA TIN); RECORDED 03/17/20 12 2:26PM BY MALICK HILL MA, ANNOTATI ON/ADDEN DUM Leilani Henry ro null, [facility] 6 12:21:01 Fibromyo sitis 73272111 Completed 201112/12/2013 STORY: DUE TO ATORVAST ATIN (TOLERAT ES SIMVASTA TIN); RECORDED 03/17/20 12 2:26PM BY MALICK HILL MA, RICK ON/ADDEN DUM Leilani Henry ro null, [facility] 6 12:21:01 Chronic allergic conjunct ivitis 50563562 Completed 201211/22/2013 RECORDED 05/11/19 13 9:31AM BY MALICK HILL MA, ANNOTATI ON/ADDEN DUM Leilani D'Alessand ro null, [facility] 6 12:21:01 Screenin g for malignan t neoplasm of cervix Completed 201211/22/2013 RECORDED 05/11/19 13 9:31AM BY MALICK HILL MA, ANNOTATI ON/ADDEN DUM Dyan Kade [place] null, [facility] 7 08:56:00 Dysuria 69524896 Completed 201211/22/2013 RECORDED 05/11/19 13 9:31AM BY MALICK HILL MA, ANNOTATI ON/ADDEN DUM Dyan Bigevelina [place] null, [facility] 7 15:45:17 Female genital organ symptoms Completed 201211/22/2013 RECORDED 05/11/19 13 9:31AM BY MALICK HILL MA, ANNOTATI ON/ADDEN DUM Leilani D'Alessand ro null, [facility] 6 12:21:01 Chronic allergic conjunct ivitis 34563629 Completed 201212/12/2013 RECORDED 05/11/19 13 9:31AM BY MALICK HILL MA, ANNOTATI ON/ADDEN DUM Leilani D'Alessand ro null, [facility] 6 12:21:01 Screenin g for malignan t neoplasm of cervix Completed 201212/12/2013 RECORDED 05/11/19 13 9:31AM BY MALICK HILL MA, ANNOTATI ON/ADDEN DUM Dyan Kade [place] null, [facility] 7 08:56:00 Female genital organ symptoms Completed 201212/12/2013 RECORDED 05/11/19 13 9:31AM BY MALICK HILL MA, ANNOTATI ON/ADDEN DUM Leilani D'Alessand ro null, [facility] 6 12:21:01 Adult health examinat ion Completed 201211/22/2013 RECORDED 06/24/19 13 8:51AM BY MALICK HILL MA, ANNOTATI ON/ADDEN DUM Leilani D'Alessand ro null, [facility] 6 12:21:01 Vaginiti s and vulvovag initis Completed 201211/22/2013 RECORDED 06/24/19 13 8:51AM BY MALICK HILL MA, ANNOTATI ON/ADDEN DUM Dyan Braun MA null, [facility] 7 08:55:57 Adult health examinat ion Completed 201212/12/2013 RECORDED 06/24/19 13 8:51AM BY MALICK HILL MA, ANNOTATI ON/ADDEN DUM Leilani D'Alessand ro null, [facility] 6 12:21:01 Vaginiti s and vulvovag initis Completed 201212/12/2013 RECORDED 06/24/19 13 8:51AM BY MALICK HILL MA, ANNOTATI ON/ADDEN DUM Dyan Braun MA null, [facility] 7 08:55:57 Acute pharyngi tis [id number] Completed 201211/22/2013 RECORDED 11/10/19 13 9:52AM BY MALICK HILL MA, ANNOTATI ON/ADDEN DUM Leilani Elsy'Alessand ro null, [facility] 6 12:21:01 Examinat ion for suspecte d mental disorder Completed 201211/22/2013 RECORDED 11/10/19 13 9:52AM BY MALICK HILL MA, ANNOTATI ON/ADDEN DUM Leilani D'Alessand ro null, [facility] 6 12:21:01 Acute pharyngi tis [id number] Completed 201212/12/2013 RECORDED 11/10/19 13 9:52AM BY MALICK HILL MA, ANNOTATI ON/ADDEN DUM Leilani D'Alessand ro null, [facility] 6 12:21:01 Examinat ion for suspecte d mental disorder Completed 201212/12/2013 RECORDED 11/10/19 13 9:52AM BY MALICK HILL MA, ANNOTATI ON/ADDEN DUM Leilani Elsy'Alessand ro null, [facility] 6 12:21:01 Follow-u p encounte r Completed 201211/22/2013 RECORDED 03/29/20 13 10:46AM BY EMMA SAGASTUME MA, ANNOTATI ON/ADDEN DUM Leilani Elsy'Alessand ro null, [facility] 6 12:21:01 Tobacco user [id number] Completed 201211/22/2013 RECORDED 03/29/20 13 10:46AM BY EMMA SAGASTUME MA, ANNOTDOMONIQUE ON/ADDEN DUM Leilani Elsy'Alessand ro null, [facility] 6 12:21:01 Menstrua tion finding Completed 201211/22/2013 RECORDED 03/29/20 13 10:46AM BY EMMA SAGASTUME MA, ANNOTDOMONIQUE ON/ADDEN DUM Leilani Elsy'Alessand ro null, [facility] 6 12:21:01 Dysmenor sanjay [id number] Completed 201211/22/2013 RECORDED 03/29/20 13 10:47AM BY EMMA SAGASTUME MA, ANNOTATI ON/ADDEN DUM Leilani Elsy'Alessand ro null, [facility] 6 12:21:01 Urinary tract infectio us disease [id number] Completed 201211/22/2013 STORY: CT NEG @ [facility]/N O PATHOLOG Y. F/U PRN; RECORDED 03/29/20 13 10:46AM BY EMMA SAGASTUME MA, ANNOTDOMONIQUE ON/ADDEN DUM Leilani Elsy'Alessand ro null, [facility] 6 12:21:01 Follow-u p encounte r Completed 201212/12/2013 RECORDED 03/29/20 13 10:46AM BY EMMA SAGASTUME MA, ANNOTATI ON/ADDEN DUM Leilani evans null, [facility] 6 12:21:01 Tobacco user [id number] Completed 201212/12/2013 RECORDED 03/29/20 13 10:46AM BY EMMA SAGASTUME MA, ANNOTATI ON/ADDEN DUM Leilani evans null, [facility] 6 12:21:01 Menstrua tion finding Completed 201212/12/2013 RECORDED 03/29/20 13 10:46AM BY EMMA SAGASTUME MA, ANNOTATI ON/ADDEN DUM Leilani Henry ro null, [facility] 6 12:21:01 Dysmenor sanjay [id number] Completed 201212/12/2013 RECORDED 03/29/20 13 10:47AM BY EMMA SAGASTUME MA, ANNOTATI ON/ADDEN DUM Leilani evans null, [facility] 6 12:21:01 Urinary tract infectio us disease 83658834 Completed 201212/12/2013 STORY: CT NEG @ [facility]/N O PATHOLOG Y. 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 [address], [facility] [place], [address] , [facility] 8 09:59:11 Chronic kidney disease stage 1 557287203 Active 2017 Shellie emmanuel [facility] 8 14:30:22 Problem Notes None recorded. Procedures Surgical History Date Name Laterality Status Provider Name and Address Organization Details Recorded Time 018 Drain/inj joint/bursa w/o us completed Wen Irizarry [facility] 10/27/2017 14:13:15 018 Back Surgery completed Wen Irizarry [facility] 10/01/2017 15:05:30 018 Orthopedic Surgery completed Adalgisa Marlow [facility] 10/01/2017 16:12:10 018 Most Recent Mammogram completed Thalia Alvarez [facility] 08/17/2017 16:21:29 018 Mammogram Screening completed Thalia Alvarez [facility] 08/17/2017 16:21:24 018 Inj paravert f jnt c/t 1 lev completed Thalia Alvarez [facility] 07/09/2017 15:02:16 017 Cystourethroscopy completed eDb Quick [facility] 03/19/2017 15:05:02 017 Chronic Pain Assessment completed Dyan Braun MA [facility] 08/21/2016 08:56:53 012 Date of Last Pap Smear completed Jessica Gomez MA [facility] 11/22/2013 10:36:18 Tubal Ligation completed LEIF Abdullahi [address] [facility] [address], [place], [address], [facility] 11/22/2013 10:57:11 Imaging Results None recorded. Procedure Notes None recorded. Medical Equipment None Reported. Allergies Allergen ID Allergen Name Allergen Category Reaction Reaction Severity Criticality Documentation Date Start Date Code Code System Note Provider Name and Address Organization Details Recorded Time 50734 Product containin g angiotens in-conver ting enzyme inhibitor (product) medicatio n cough Not available Not available 11/15/20132013 70028 009 [facility] 15:39[facility]36 41749 Byetta medicatio n other Not available Not available 11/15/20132013 90666 1 RxNorm [facility] 4 15:39:36 40950 Cymbalta medicatio n rash severe Not available 04/13/20142013 30745 4 RxNorm ? SJS from this med [facility]DRINA [facility] 4 10:43:02 70104 Product containin g penicilli n (product) medicatio n hives moderate Not available 09/19/2016 88421 8001 SNOMED [facility] 7 11:26:10 Medications Name Sig Start Date [...] completed Not Available Not Available Not Available FreeStyle Lancets 28 gauge active Not Available Not Available Not Available lisinopri l 20 mg tablet QD 2007 active RECORDED 08/05/19 08 10:04AM BY JEM CANTU, ANNOTATI ON/DAYNE DUM; Not Available Not Available [...] 11/01 completed RECORDED 11/02/19 08 2:29PM BY LEILANI BYRD MD, ANNOTATI ON/DAYNE GUZMAN; Not Available Not Available Not Available permethri n 5 % topical cream FOR 8 TO 14 HOURS 09/29 completed RECORDED 10/23/19 11 9:23AM BY KD HILL PA-C, MEDICATI ON AUTO-PALOMO CTIVATIO N;MAY REPEAT IN [...] 2007 active RECORDED 08/05/19 08 10:32AM BY LEILANI BYRD MD, ANNOTATI ON/ADDEN DUM; Not Available [...] tablet TWO TIMES DAILY 01/20 completed IESHA Broussard Not Available Not Available Not Available dexametha [...] 14 2:52PM BY MALICK HILL MA, ANNOTATI ON/ADD DUM; Not Available Not Available Not Available [...] 03/20 completed RECORDED 03/20/20 09 8:59AM BY LEILANI BYRD MD, ANNOTATI ON/ADDEN DUM;THIS ORDER DISCONTI NUED PER MEDI-SPA N. Not Available Not Available Not Available ibuprofen 600 mg tablet THREE TIMES DAILY, NEEDED 12/28 completed RECORDED 02/05/20 10 9:35AM BY LEILANI BYRD MD, MEDICATI ON AUTO-PALOMO CTIVATIO N; [...] 08/29 completed RECORDED 08/30/19 09 9:00AM BY LEILANI BYRD MD, ANNOTATI ON/ADDEN DUM; Not Available [...] BY PASCUAL PUTNAM MA, OFFICE VISIT;DR VINCENT JULIAN KYRGYZ/ENDOC RINE Not Available Not Available Not Available prazosin 2 mg capsule Take 1 capsule every day by oral route for 30 days. 08/21 completed Not Available Not Available Not Available albuterol (refill) 90 mcg/actua tion aerosol inhaler FOUR TIMES DAILY, NEEDED 02/04 completed RECORDED 02/05/20 10 11:42AM BY YUDI DUTTON, ANNOTATI ON/ADDEN DUM;THIS ORDER DISCONTI NUED PER [...] 11:05AM BY JESSICA GOMEZ, OFFICE VISIT;DR VINCENT JULIAN KYRGYZ/ENDOC RINE Not Available Not Available Not Available [...] RECORDED 02/05/20 10 11:42AM BY RICK GUERRIER ON/DAYNE DUM;THIS ORDER DISCONTI NUED PER MEDI-SPA N. Not Available Not Available Not Available Glucomete r Elite Test TID 05/28 completed RECORDED 05/28/19 12 3:05PM BY RICK GUERRIER ON/DAYNE DUM;THIS ORDER DISCONTI NUED PER MEDI-SPA N. Not Available Not Available Not Available lancets THREE TIMES DAILY 05/28 completed RECORDED 05/28/19 12 3:04PM BY RICK GUERRIER ON/DAYNE DUM; Not Available Not Available Not Available Aspirin EC DAILY 03/18 completed RECORDED 03/18/20 13 11:46AM BY RICK GUERRIER ON/DAYNE DUM; Not Available Not Available Not Available glipizide 2.5 1 po qd 01/06 completed Not Available Not Available Not Available Pen [place] THREE TIMES DAILY 05/28 completed RECORDED 05/28/19 12 3:04PM BY RCIK GUERRIER ON/RADHAEN DUM; Not Available Not Available Not Available BD Insulin Syringe Ult-Fine II 1 mL 31 gauge x 09/16 active Not Available Not Available Not Available FreeStyle [place] kit QD active Not Available Not Available [...] Available Not Available Not Available Fluarix Quad [id number] (PF) 60 mcg (15 mcg x 4)/0.5 mL IM syringe 05/16 completed Not Available Not Available Not Available Vitals Date Recorded Body height Body mass index (BMI) Body weight Oxygen saturation Oxygen saturation in Arterial blood by Pulse oximetry Heart rate Systolic And Diastolic Provider Name and Address Organization Details Last Updated DateTime 8 167.64 cm 35.6 kg/m2 03777.4 2 g 97 % 97 % 85 /min 122/77 mm[Hg] Dyan Braun MA [facility] 8 10:02:08 Date Recorded Body height Oxygen saturation Oxygen saturation in Arterial blood by Pulse oximetry Heart rate Body temperature Body weight Body mass index (BMI) Systolic And Diastolic Provider Name and Address Organization Details Last Updated DateTime 7 167.64 cm 98 % 98 % 89 /min 98.3 [degF] 845164. 31 g 35.9 kg/m2 119/63 mm[Hg] Jessica Gomez MA [facility] 7 10:23:05 Date Recorded Body height Body mass index (BMI) Body weight Body temperature Oxygen saturation Oxygen saturation in Arterial blood by Pulse oximetry Heart rate Systolic And Diastolic Provider Name and Address Organization Details Last Updated DateTime 8 167.64 cm 35.1 kg/m2 63339.3 4 g 97.4 [degF] 96 % 96 % 85 /min 122/78 mm[Hg] Wen Irizarry [facility] 8 09:26:56 Date Recorded Body height Body mass index (BMI) Body weight Heart rate Oxygen saturation Oxygen saturation in Arterial blood by Pulse oximetry Body temperature Systolic And Diastolic Provider Name and Address Organization Details Last Updated DateTime 7 167.64 cm 35 kg/m2 65812.5 4 g 103 /min 97 % 97 % 98 [degF] 134/78 mm[Hg] [facility] 7 14:41:13 Date Recorded Body height Body mass index (BMI) Body weight Heart rate Oxygen saturation Oxygen saturation in Arterial blood by Pulse oximetry Body temperature Systolic And Diastolic Provider Name and Address Organization Details Last Updated DateTime 7 167.64 cm 35.2 kg/m2 12452.8 4 g 71 /min 99 % 99 % 97.1 [degF] 127/81 mm[Hg] Dyan Barun [facility] 7 09:35:08 Social History Question Answer Notes LastModified by Organizat ion Details LastModified Time Tobacco Smoking Status Current Every Day Smoker Patient did quit, after accident she started again Emma emmanuel [facility] 11/16/2014 12:59:47 Do You Have An Advance Directive? No Information not available 12/14/2015 Is Blood Transfusion Acceptable In An Emergency? Yes Information not available 11/16/2014 What Is Your Level Of Caffeine Consumption? Occasional Mostly Coffee Sometimes Soda [email or web address] Information not available 11/22/2013 How Much Tobacco Do You Chew? None [email or web address] Information not available 11/22/2013 Are You Deaf Or Do You Have Serious Difficulty Hearing? No [email or web address] Information not available 11/22/2013 What Type Of Diet Are You Following? DIABETIC Information not available 11/16/2014 Which Illicit Or Recreational Drugs Have You Used? N/A Information not available 11/16/2014 Have There Been Any Changes To Your Family Or Social Situation? No Information not available 11/22/2013 Are There Any Guns Present In Your Home? No [email or web address] Information not available 11/22/2013 Single Or Multi-level Home/work? Single Level Home [email or web address] Information not available 11/22/2013 Legally Blind In One Or Both Eyes? No Information not available 11/22/2013 Live Alone Or With Others? Alone [email or web address] Information not available 11/22/2013 Do You Take Precautions To Prevent Distracted Driving? Yes Information not available 08/03/2017 How Often Do You Need To Have Someone Help You When You Read Instructions, Pamphlets, Or Other Written Material From Your Doctor Or Pharmacy? Never Information not available 12/14/2015 Have You Served In The ? No Information not available 08/03/2017 Marital Status [email or web address] Informatio n not available 11/22/2013 What Was The Date Of Your Most Recent Tobacco Screening? 08/03/2017 Information not available 11/25/2018 How Many Children Do You Have? 2 Dtr Marialuisa And Granddtr Macho [email or web address] Information not available 12/14/2015 Difficulty Reading? No [email or web address] Information not available 11/22/2013 Seat Belts Used Routinely Yes Information not available 11/16/2014 Smoke Alarm In Home Yes [email or web address] Information not available 11/22/2013 At What Age Did You Start Smoking Tobacco? 16 Information not available 11/16/2014 Are You Passively Exposed To Smoke? No [email or web address] Information not available 11/22/2013 How Much Tobacco Do You Smoke? 1 PPD Information not available 11/16/2014 General Stress Level High Information not available 11/22/2013 Do You Use Sunscreen Routinely? No Information not available 11/16/2014 How Many Years Have You Smoked Tobacco? 20 [email or web address] Information not available 11/22/2013 Difficulty Watching TV? No [email or web address] Information not available 11/22/2013 Do You Have Difficulty Walking Or Climbing Stairs? Yes Information not available 11/22/2013 Sex: Unknown Functional Status Question Answer Note LastModified by Organizat ion Details LastModified Time Do you use any illicit or recreational drugs? No [email or web address] Information not available 11/22/2013 What is your level of alcohol consumption? None [email or web address] Information not available 11/22/2013 Are you currently employed? No Information not available 11/16/2014 Difficulty driving at night? No [email or web address] Information no t available 11/22/2013 Do you have difficulty doing errands alone? No Information not available 11/22/2013 Are you able to care for yourself independently? Yes Marialuisa is proxy [email or web address] Information not available 12/14/2015 Do you have difficulty dressing, bathing, grooming, or toileting? No Information not available 11/22/2013 What is your exercise level? None Information not available 11/16/2014 Mental Status Question Answer Note LastModified by Organization D etails LastModified Time Do you have difficulty concentrating, remembering or making decisions? No [email or web address] Information no t available 11/22/2013 Family History [...] virus, trivalent, PF 5 completed Thalia Alvarez null [facility] 08/11/2017 14:05:20 pneumococcal polysaccharide PPV23 4 completed Thalia Alvarez [facility] 08/11/2017 14:05:20 Influenza, split virus, trivalent, preservative 6 completed Thalia Alvarez null [facility] 08/11/2017 14:05:20 Tdap 8 [facility] 14:05:20 Influenza, split virus, quadrivalent, PF 7 completed Not Available [facility] 05/21/2019 02:22:13 pneumococcal polysaccharide PPV23 7 completed Thalia Alvarez null [facility] 08/11/2017 14:05:20 Influenza, split virus, trivalent, preservative 8 completed Thalia Alvarez null [facility] 08/11/2017 14:05:20 Influenza, split virus, trivalent, preservative 8 completed Thalia Alvarez null, [facility] 08/11/2017 14:05:20 Tdap 8 completed Thalia Alvarez null, [facility] 08/11/2017 14:05:20 Influenza, split virus, trivalent, preservative 0 completed Thalia Alvarez null, [facility] 08/11/2017 14:05:20 Influenza, split virus, trivalent, preservative 2 completed Thalia Alvarez null, [facility] 08/11/2017 14:05:20 Influenza, split virus, trivalent, preservative 3 completed Thalia Alvarez null, [facility] 08/11/2017 14:05:20 Past Encounters Encounter ID Performer Location Encounter Start Date Encounter Closed Date Diagnosis/Indication Diagnosis SNOMED-CT Code Diagnosis ICD10 Code Diagnosis IMO Codes Diagnosis Note [id number] LEIF Abdullahi Main Office [address] [facility] [address] [place] [address] 11/22/2013 09:54:55 11/22/2013 11:27:21 Adult health examination [id number] Diabetes mellitus 10206767 Low back pain 727686321 Essential hypertension 37851832 Hyperlipidemia 26568458 Gastroesop hageal reflux disease 136497655 [id number] autoEComm erce [address] [facility] [facility] [place] [address] 04/23/2010 00:00:00 [id number] autoEComm erce [address] [facility] [facility] [place] [address] 04/23/2010 00:00:00 [id number] autoEComm erce [address] [facility] [facility] [place] [address] 04/23/2010 00:00:00 [id number] autoEComm erce [address] [facility] [facility] [place] [address] 09/27/2010 00:00:[address] [id number]Comm erce [address] [place] [address] 10/22/2010 00:00:00 [id number] autoEComm erce [address] [place] [address] 10/22/2010 00:00:00 [id number] autoEComm erce [address] [place] [address] 04/29/2011 00:00:00 [id number] autoEComm erce [address] [place] [address] 04/29/2011 00:00:00 [id number] autoEComm erce [address] [facility] [address] [place] [address] 06/21/2011 00:00:00 [id number] autoEComm erce [address] [facility],[address] [place] [address] 08/27/2011 00:00:00 [id number] autoEComm erce [address] [facility] [address] [place] [address] 08/27/2011 00:00:00 [id number] autoEComm erce [address] [facility] [address] [place] [address] 10/28/2011 00:00:00 [id number] autoEComm erce [address] [facility] [place] [address] 10/28/2011 00:00:00 [id number] autoEComm erce [address] [facility] [address] [place] [address] 10/28/2011 00:00:00 [id number] autoEComm erce [address] [facility] [address] [place] [address] 10/28/2011 00:00:00 [id number] autoEComm erce [address] [facility] [address] [place] [address] 11/01/2011 00:00:00 [id number] autoEComm erce [address] [place] [address] 11/01/2011 00:00:00 [id number] autoEComm erce [address] [place] [address] 11/01/2011 00:00:00 [id number] autoEComm erce [address] [place] [address] 11/01/2011 00:00:00 [id number] autoEComm erce [address] [place] [address] 11/17/2011 00:00:00 [id number] autoEComm erce [address] [place] [address] 11/17/2011 00:00:00 [id number] autoEComm erce [address] [facility] [address] [place] [address] 11/17/2011 00:00:00 [id number] autoEComm erce [address] [facility] [address] [place] [address] 11/17/2011 00:00:00 [id number] autoEComm erce [address] [facility] [address] [place] [address] 03/17/2012 00:00:00 [id number] autoEComm erce [address] [facility] [address] [place] [address] 03/17/2012 00:00:00 [id number] autoEComm erce [address] [facility] [address] [place] [address] 03/17/2012 00:00:00 [id number] autoEComm erce [address] [facility],[address] [place] [address] 05/11/2012 00:00:00 [id number] autoEComm erce [address] [place] [address] 06/24/2012 00:00:00 [id number] autoEComm erce [address] [facility] [address] [place] [address] 06/24/2012 00:00:00 [id number] autoEComm erce [address] [place] [address] 06/24/2012 00:00:00 [id number] autoEComm erce [address] [place] [address] 07/24/2012 00:00:00 [id number] autoEComm erce [address] [place] [address] 07/24/2012 00:00:00 [id number] autoEComm erce [address] [place] [address] 07/24/2012 00:00:00 [id number] autoEComm erce [address] [place] [address] 07/24/2012 00:00:00 [id number] autoEComm erce [address] [place] [address] 11/09/2012 00:00:00 [id number] autoEComm erce [address] [place] [address] 11/09/2012 00:00:00 [id number] autoEComm erce [address] [place] [address] 03/29/2013 00:00:00 [id number] autoEComm erce [address] [place] [address] 03/29/2013 00:00:00 [id number] autoEComm erce [address] [place] [address] 03/29/2013 00:00:00 [id number] autoEComm erce [address] [place] [address] 05/31/2013 00:00:00 [id number] autoEComm erce [address] [place] [address] 05/31/2013 00:00:00 [id number] autoEComm erce [address] [place] [address] 05/31/2013 00:00:00 [id number] autoEComm erce [address] [place] [address] 05/31/2013 00:00:00 [id number] autoEComm erce [address] [place] [address] 10/10/2013 00:00:00 [id number] autoEComm erce [address] [place] [address] 10/10/2013 00:00:00 [id number] autoEComm erce [address] [place] [address] 10/10/2013 00:00:00 [id number] autoEComm erce [address] [place] [address] 10/10/2013 00:00:00 [id number] autoEComm erce [address] [place] [address] 11/15/2013 00:00:00 [id number] autoEComm erce [address] [place] [address] 11/15/2013 00:00:00 [id number] autoEComm erce [address] [facility] [address] [place] [address] 11/15/2013 00:00:00 [id number] autoEComm erce [address] [facility] [address] [place] [address] 11/15/2013 00:00:00 [id number] autoEComm erce [address] [place] [address] 12/01/2006 00:00:00 [id number] autoEComm erce [address] [place] [address] 12/01/2006 00:00:00 [id number] autoEComm erce [address] [facility] [address] [place] [address] 12/01/2006 00:00:00 [id number] autoEComm erce [address] [place] [address] 12/15/2006 00:00:00 [id number] [employer] [address] [place] [address] 2 05/06/2007 00:00:00 [id number] [employer] [address] [facility] [address] [facility] [address] [place] [address] 2 05/06/2007 00:00:00 [id number] [employer] [address] [place] [address] 2 08/05/2007 00:00:00 [id number] [employer] [address] [place] [address] 2 08/05/2007 00:00:00 [id number] [employer] [address] [facility],[address] [place] [address] 2 08/05/2007 00:00:00 [id number] [employer] [address] [facility],[address] [place] [address] 2 11/02/2007 00:00:00 [id number] [employer] [address] [facility],[address] [place] [address] 2 11/19/2007 00:00:00 [id number] [employer] [address] [facility],[address] [place] [address] 2 11/19/2007 00:00:00 [id number] [employer] [address] [facility],[address] [place] [address] 2 11/19/2007 00:00:00 [id number] [employer] [address] [facility],[address] [place] [address] 2 11/19/2007 00:00:00 [id number] [employer] [address] [facility],[address] [place] [address] 2 12/03/2007 00:00:00 [id number] [employer] [address] [facility],[address] [place] [address] 2 12/03/2007 00:00:00 [id number] [employer] [address] [place] [address] 2 12/03/2007 00:00:00 [id number] [employer] [address] [place] [address] 2 12/03/2007 00:00:00 [id number] [employer] [address] [place] [address] 2 01/28/2008 00:00:00 [id number] [employer] [address] [facility] [address] [place] [address] 2 01/28/2008 00:00:00 [id number] [employer] [address] [place] [address] 2 01/28/2008 00:00:00 [id number] [employer] [address] [facility] [address] [place] [address] 2 02/01/2008 00:00:00 [id number] [employer] [address] [facility],[address] [place] [address] 2 05/30/2008 00:00:00 [id number] [employer] [address] [facility] [address] [place] [address] 2 05/30/2008 00:00:00 [id number] [employer] [address] [facility],[address] [place] [address] 2 05/30/2008 00:00:00 [id number] [employer] [address] [facility],[address] [place] [address] 2 05/30/2008 00:00:00 [id number] [employer] [address] [facility] [address] [place] [address] 2 08/29/2008 00:00:00 [id number] [employer] [address] [facility],[address] [place] [address] 2 08/29/2008 00:00:00 [id number] [employer] [address] [facility],[address] [place] [address] 2 08/29/2008 00:00:00 [id number] [employer] [address] [facility],[address] [place] [address] 2 08/29/2008 00:00:00 [id number] [employer] [address] [facility],[address] [place] [address] 2 03/20/2009 00:00:00 [id number] [employer] [address] [facility],[address] [place] [address] 2 03/20/2009 00:00:00 [id number] [employer] [address] [facility],[address] [place] [address] 2 03/20/2009 00:00:00 [id number] [employer] [address] [facility],[address] [place] [address] 2 03/20/2009 00:00:00 [id number] [employer] [address] [facility],[address] [place] [address] 2 07/11/2009 00:00:00 [id number] [employer] [address] [facility],[address] [place] [address] 2 07/11/2009 00:00:00 [id number] [employer] [address] [facility],[address] [place] [address] 2 07/11/2009 00:00:00 [id number] [employer] [address] [facility],[address] [place] [address] 2 12/18/2009 00:00:00 [id number] Emigdio Carson [facility] Main Office [address] [facility] [address] [place] [address] 02/24/2014 15:25:31 02/24/2014 16:22:20 Diabetes mellitus 95600144 Urine shows 3+ glucose but neg ketones. FSBS 364. Discussed with Dr. Patel. Will administer 6 units humalog insulin in the office. PatieNt will check her sugar when she gets home and she will ensure she is drinking lots of fluids, decreasing carb intake and taking her meds as prescribed . F/i with Dr. Muse as scheuled on 03/02/14. Essential hypertension 68886332 [id number] LEIF Abdullahi Main Office [address] [address] 04/19/2014 12:44:50 04/19/2014 13:33:59 Acute vaginitis 46873368 Vaginitis, on flagyl and levaquin improved, no residual rash at this time. 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 Follow-up encounter [id number] Essential hypertension 98263718 Diabetes mellitus 67296342 Has been seeing Dr. Muse , has f/u scheduled in July, she states her DM meds were changed in the hospital and her sugars have been higher than normal, she will call Dr. Muse 's office to ask about meds and inform of sugars. [id number] Leilani evans MD Main Office [address] [address] 05/29/2014 11:23:28 05/29/2014 12:09:24 Essential hypertension 79849417 Obesity 657831341 Renal diso rder due to type 2 diabetes mellitus 230671682 Degenerati on of lumbosacral intervertebral disc 13751686 Hyperlipidemia 40814861 [id number] Leilani evans MD Main Office [address] [address] 11/16/2014 12:38:15 11/16/2014 13:41:48 Adult health examination 589968665 Major depr essive disorder 352373838 I offered pt support/ she can contract for safety and has numerous supports. Phone call placed/anayeli klein left to Francisco Quinones Therapist , Vanessa Samano/ I will d/w therapist the new issue for pt of fibromyalg ia and worsening depression and make a plan w/ mental health staff Renal diso rder due to type [address] Vincent Caro manages Essential hypertension 05951494 [id number] Jeannie Metz PA-C Main Office [address] [address] 03/20/2015 15:28:47 03/20/2015 16:09:41 Pain in pelvis 24507464 R10.2 Pain is resolving. Pt. is advised to take Motrin 200 mg 2 po BID for few days with food. Recheck CBC due to mild leukocytos is. All testing in the ER was unremarkab le. Leukocytosis 949927649 D 72.829 Steatotic liver disease 100708158 K76.0 Liver steatosis linked to uncontrole d DM and obesity. Pt. was recommende d to loose weight via low gertrude diet and daily exercise activity. [id number] Leilani evans MD Main Office [address] [facility] [address] [place] [address] 05/24/2015 13:00:22 05/24/2015 14:12:21 Degeneration of lumbosacral intervertebral disc 39930452 M51.37 Shoulder joint pain 2679 60582 M25.512 Chronic pain 64630259 G8 929 I had a discussion w/ pt re risks of opiates. Pt agrees and is aware of risks of opiates. I agree w/ use of steroids despite the effects on blood sugars Major depr essive disorder 543204780 F32.9 I offered pt support/ she can contract for safety and has numerous supports. Phone call placed/anayeli klein left to [place] Therapist , Vanessa Samano/ I rashaun d/w therapist the new issue for pt of fibromyalg ia and worsening depression and make a plan w/ mental health staff Renal diso rder due to type 2 diabetes mellitus 195223519 E11.29 Dr Vincent Caro manages [id number] Leilani evans MD Main Office [address] [facility] [address] [place] [address] 07/03/2015 08:40:32 07/03/2015 09:28:06 Constipation 89590233 K59.00 pt using fiber and fluids and colace prn Chronic pain 82229287 G8 9.29 I had a discussion w/ pt re risks of opiates. Pt agrees and is aware of risks of opiates. I agree w/ use of steroids despite the effects on blood sugars 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 864128816 E11.40 Urinary incontinence 165 498254 R32 Vaginitis and vulvovaginitis 721237476 N76.0 [id number] Leilani evans MD Main Office [address] [address] [place] [address] 08/23/2015 10:36:51 08/23/2015 12:02:34 Lateral epicondylitis 113442891 M77.11 [id number] Gabriele Patel MD Main Office [address] [address] [place] [address] 09/15/2015 10:33:07 09/15/2015 11:53:40 Dysuria 42268135 R30.0 Will treat for more complicate d cystitis based on comorbidit es and recurrent infections . WIll modify or possibly d/c abx depending on culture results. Pt advised to call with persistent or worsening symptoms or with any medication problems. Renal diso rder due to type 2 diabetes mellitus 457634557 E11.22 [id number] Leilani evans MD Main Office [address] [address] [place] [address] 11/06/2015 11:15:55 11/06/2015 12:11:54 Edema of the upper extremity 389122146 R60.0 we will get labs from Endo and pt may need to see nephrology . she will take ONLY irbesartan and will wean down on gabapentin dose Major depr essive disorder 368598100 F33.9 I offered pt support/ she can contract for safety and has numerous supports. Phone call placed/anayeli klein left to [place] Therapist , Vanessa Samano/ I will d/w therapist the new issue for pt of fibromyalg ia and worsening depression and make a plan w/ mental health staff Essential hypertension 65755420 I10 Chronic pain 20671809 G8 9.29 I had a discussion w/ pt re risks of opiates. Pt agrees and is aware of risks of opiates. I agree w/ use of steroids despite the effects on blood sugars [id number] Leilani evans MD Main Office [address] [address] [place] [address] 12/14/2015 13:25:51 12/14/2015 14:48:40 Adult health examination 835940294 Z00.00 Renal diso rder due to type 2 diabetes mellitus 748179621 E11.[address] Vincent Caro manages Degenerati on of lumbosacral intervertebral disc 21380952 M51.37 Chronic pain 15771365 G8 9.29 I had a discussion w/ pt re risks of opiates. Pt agrees and is aware of risks of opiates. I agree w/ use of steroids despite the effects on blood sugars Major depr essive disorder 908305340 F33.9 I offered pt support/ she can contract for safety and has numerous supports. Phone call placed/anayeli klein left to [place] Therapist , Vanessa Samano/ I will d/w therapist the new issue for pt of fibromyalg ia and worsening depression and make a plan w/ mental health staff [id number] LEIF Abdullahi Main Office [address] [facility] [address] [place] [address] 05/16/2016 14:15:45 05/16/2016 15:50:32 Neck pain 37233743 M54.2 chronic, ongoing issue for patient, she [...] ice as needed. Major depr essive disorder 551597899 F32.9 Hx MDD, and she states she did threaten SI at one point due to fear of having meds discontinu ed. She was dismissed from [facility] due to this and is awaiting Pain management appt. [id number] Leilani evans MD Main Office [address] [facility] [address] [place] [address] 08/21/2016 08:46:41 08/21/2016 09:49:52 Chronic pain 51047788 G89.29 I had a discussion w/ pt re risks of opiates. Pt agrees and is aware of risks of opiates. I agree w/ use of steroids despite the effects on blood sugars Chronic ki dney disease stage 1 006336712 N18.1 Renal diso rder due to type 2 diabetes mellitus 071003439 E11.22 Dr Vincent Caro manages Hyperlipidemia 28310581 E78.5 Tobacco de pendence syndrome 32725692 F17.290 Chronic pain syndrome 37 5182629 G89.4 Hypertensi ve renal disease 77785419 I12.9 [id number] Leilani evans MD Main Office [address] [address] 09/19/2016 10:36:47 09/19/2016 11:34:36 Dysuria 49649546 R30.0 SYMPTOMS: burning with urination? yes frequency? yes hematuria? no lower abdominal pain? yes symptoms similar to previous UTI? yes POSSIBLE CONTRAINDI CATIONS TO TELEPHONE TREATMENT: > 65 years of age? no fevers? no recent UTI (within 1 month)? no new low back pain? no nausea or vomiting? no ? no history of interstiti al cystitis? no PROVIDER ACTION: Reviewed nursing notes? yes Recommende d action appropriat e for telephone treatment Antibiotic treatment Macrobid x 7 days [id number] Leilani evans MD Main Office [address] [address] 09/26/2016 16:26:36 09/26/2016 17:08:20 [id number] LEIF Abdullahi Main Office [address] [address] 09/30/2016 10:13:28 09/30/2016 10:53:18 Urinary tract infectious disease 63742442 N39.0 resolved, took full course of abx Urinary incontinence 165 999853 R32 seeing urogyn today at 2:40 in follow-up and for eval of incontinen ce Uncontroll ed type 2 diabetes mellitus 919535874 E11.65 Seeing endocrinol PAIGE love 277 this am, continue meds as directed. Essential hypertension 83829344 I10 BP well controlled , continue emds as directed Acute vaginitis 37797423 N76.0 recently on 3 abx, feels may be getting a yeast infection, has a script for fluconazol e, will fill as needed. [id number] LEIF Abdullahi Main Office [address] [place] [address] 01/06/2017 14:04:42 01/06/2017 15:24:15 Lumbar radiculopathy 497149650 M54.16 Heat 4 times daily x 20 mins at a time, XRs today, meloxicam once daily as directed with food, methocarba mol TID as needed, tylenol #3 for 3 days only as needed. No driving or alcohol with meds. Gentle stretching as tolerated, may need PT and referral if sx persist. [id number] Leilani evans MD Main Office [address] [address] 02/19/2017 09:25:09 02/19/2017 10:09:46 Needs influenza immunization 613791956 Z23 Urinary incontinence 165 329533 R32 [id number] Leilani evans MD Main Office [address] [place] [address] 08/03/2017 09:45:53 08/03/2017 10:34:19 Adult health examination 989696510 Z00.00 Screening for malignant neoplasm of breast 011433831 Z12.39 Screening for malignant neoplasm of cervix 028849311 Z12.4 Administra tion of viral vaccine 09901762 Z23 Eczema 05934330 L30.9 Uncontroll ed type 2 diabetes mellitus 018080629 E11.65 Major depr essive disorder 274616770 F33.9 pt feels safe and is stable w/ mental health support [id number] Jeannie Metz PA-C Main Office [address] [address] 11/16/2017 08:53:08 11/16/2017 10:19:36 Uncontrolled type 2 diabetes mellitus 687679809 E11.65 Diabetes slowly improving but not at goal. Recommend to see endo every [address] Will repeat all labs fasting. Pt. will f/u with endo as scheduled and with nutrionist . Renal diso rder due to type 2 diabetes mellitus 741579929 E11.22 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 892048114 E11.49 stale neuropathy on Lyrica. RX written by pain management ( [address] [place]). Hyperlipidemia 65155788 E78.00 Continue current meds and low fat diet. Repeat fasting lipids. Essential hypertension 22114410 I10 Stable HTN> Continue current meds and repeat labs as recommende d. Major depr essive disorder 911536990 F32.9 F/u with psych continue current meds. 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 66547860 F51.05 F99 Continue current meds as per psych. Tobacco user 180015669 Z 72.0 Body mass index 30+ - obesity 728535678 E66.01 Z68.35 Chronic ki dney disease stage 1 009309652 N18.1 Health Concerns Section Related Observation LastModified by Organization Detai ls LastModified Time None Recorded Concern Status LastModified by Organization Details LastModified Time None Recorded Advance Directives Directive N: Payers Insurance Date Sequence Insurance Name Policy Number Policy Cordero Covered Member ID Cordero Member ID Guarantor Name 11/14/2017 1 [place]: [employer] Mabeline Quick Buck [id number] Mabeline Quick Buck 02/13/2017 2 [facility] [id number] Mabeline Quick Buck [id number] Mabeline Quick Buck 02/13/2017 1 [facility] - MEDICAID ESSENTIAL (MEDICAID HMO) [id number] Mabeline Quick Buck [id number] Mabeline Quick Buck 11/16/2017 2 [place] [facility] Mabeline Quick-Va zquez [id number] Mabeline Quick Buck Notes Date Note Type Note Provider Name and Address Organization Details Recorded Time 7 text/html Hospitalization Contact RecordReported by PatientHospitalization Contact RecordFor follow up, [facility]sh[facility],admit date: (please enter in format 'mm/dd/yyyy') (09/21/2016),date of discharge: (please enter in format 'mm/dd/yyyy') (09/23/2016), anddate of contact: (please enter in format 'mm/dd/yyyy') (09/26/2016)(hospital [id number] female with a history of hypertension, hyperlipidemia, lumbar radiculopathy, type 2 diabetes mellitus, chronic low back pain presented with abdominal pain and dysuriaabdominal pain:secondary to klebsiella pneumonia utifailed outpatient therapytreated with ceftriaxone3 more days of doxycyclineblood cultures are negativehypertension:stable irbesartan/hydrochlorothiaz akua at homediabetes mellitus: uncontrolledpatient is allergic to insulincontinue with the metformin thousand milligrams 2 times a day, glipizide dose changed to 12.5mg bidmild ag resolved with iv fluidslumbar radiculopathy: gabapentin 300 mg 3 times a daysmoking cessation counselingnadobeseno pallor/icterusabdomin soft, nt/nd, no g/cjpg9ku gross deficitsdischarge plandiet/activity/patient education/follow uppatient was given the following educational materials: bladder infection, female (adult), bladder infection, female (adult).follow up with: leilani kim within 1 to 2 weeks.discharge dispositiondischarge: home. virgil#1 s/w pt she has an ap. booked with pm on thursday09/30/2016). Presents in follow-up as below has completed [...] feels edema has resolved. glipizide was increased. Leilani emmanuel [facility] 09/30/2016 17:31:32 7 text/html Generic HPI TemplateReported by Patientleft hip/ buttock pain that radiates down leg into toes with numbness and tingling. She feels pain is severe and was going to go to ED. She notes she has had back pain with a UTI before, her urine is yellow but bubbly appearing. She does have DM and endocrine is sending her to [place] for a test as she cannot take insulin. Leilani emmanuel [facility] 01/06/2017 16:37:31 7 text/html Urinary FrequencyReported by PatientHPIFor quality, patient reportssymptoms worse during the day. For severity, patient reportsmoderate. For alleviating factors, patient reportsnothing gives relief(pt notes urinary incontinence. pt has leakage). For aggravating factors, patient reportstobacco use(pt quit smoking last year). For associated symptoms, patient reportsno abdominal pain,no diarrhea,no hesitancy, andno vomiting(pt has urine odor when she has uti/ pt plans for bladder botox. see plan). Leilani emmanuel [facility] 02/19/2017 09:59:55 8 text/html Medicare Annual Wellness VisitReported by PatientSocial/Behavioral HistoryFor diet and nutrition, patient reportsdiscussed portion controlanddiscussed diet improvement. For fracture risk, patient reportsno history of fractures,no recent explained fracture,no sudden unexplained fractures, andno previous musculoskeletal injuries. For physical activity, patient reportsdiscussed weightbearing activitiesanddiscussed exercise habits.Mental Status:For depression risk, patient reportshistory of depressionbut reportsno loss of interest in activities,no significant changes in weight,no sleep disturbances or insomnia,no agitation,no loss of energy,no feelings of worthlessness or guilt,no thoughts of suicide, andno history of mood disorders(stable on ssri). For orientation, patient reportsno disorientation to time,no disorientation to date, andno disorientation to place. For concentration and memory, patient reportsno decreased concentrating ability,no memory lapses or loss, anddoes not forget words. For speech/motor difficulties, patient reportsno speech difficulties,no difficulty expressing formulated concepts,no difficulty with fine manipulative tasks,no difficulty writing/copying,no slowed reaction time, anddoes not knock things over when trying to pick them up.Functional AbilityFor hearing, patient reportsno loss of hearing. For vision, patient reportsno vision problems. For activities of daily living, patient reportsable to bathe with limited or no assistance,able to contol urination and bowels,able to dress with limited or no assistance,able to feed self with limited or no assistance,able to get out of chair or bed with limited or no assistance,able to groom with limited or no assistance, andable to toilet with limited or no assistance. For instrumental activities of daily living, patient reportsable to do house work with limited or no assistance,able to grocery shop with limited or no assistance,able to manage medications with limited or no assistance,able to manage money with limited or no assistance,able to prepare meals with limited or no assistance, andable to use the phone with limited or no assistance. For falls risk assessment, patient reportsno frequent falls while walking,no fall in the past year,no fall since last visit, andno dizziness/vertigo. For home safety, patient reportsuse of seatbeltsandgood lighting in the home. Leilani emmanuel [facility] [place] 08/03/2017 10:31:16 8 text/html ROS as noted in the HPI 52 year old female for f/u. PT. 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 Sees endo at [facility] and is currently on V-Go pump and CGM with [employer]. A!c today is improved at 10.0% from 11.3% on last visit with endo . PT. has almaz for f/u. PT. has neuropathy. Does ot currently see lead painter. Overdue for diabetic eye exam. REports no vision changes.Major depression. Sees psych and counselor in [place]. On Citalopram 20 mg and Zolpidem for insomnia from them.Chronic pain and neuropathy. WAS ON Lyrica , but discontinued in May.HTN is stable on meds. PT. is overdue for labs.Hyperlipidemia. ON atorvastatin 10 mg. Overdue for labs.TObacco user. 12 or 13 cigarettes per day. STopped in the past with [employer]. Wants to try again. Shellie emmanuel [facility] [place] 11/16/2017 14:31:49 OBGyn Episode No OBEpisode recorded.
== END 2025-03-10 16:22 | disposition home or self-care (01) ==
PROVIDERS: PCP Family Medicine; Visit Provider Nurse Practitioner Family
DX: E11.40 Type 2 diabetes mellitus with diabetic neuropathy, unspecified (principal); M47.816 Spondylosis without myelopathy or radiculopathy, lumbar region; M51.369 Other intervertebral disc degeneration, lumbar region without mention of lumbar back pain or lower extremity pain; M54.50 Low back pain, unspecified; G89.29 Other chronic pain
CPT/HCPCS: 17999; 99214

== ENCOUNTER → 2025-03-10 15:35 | Outpatient (BNVA) | payer OTHER, SELFPAY | PROVIDERS: PCP Family Medicine; Visit Provider Nurse Practitioner Family | DX: E11.40 Type 2 diabetes mellitus with diabetic neuropathy, unspecified (principal); M54.50 Low back pain, unspecified; G89.29 Other chronic pain | CPT/HCPCS: 17999; 99212; J7336 ==